=== PATIENT | female | born 1960 | race Caucasian/White ===

== ENCOUNTER 2023-01-23 13:14 | Outpatient (OUT) | payer MEDICARE, SELFPAY ==
[2023-01-23 13:33] LABS: Basophils Percent Auto 0.5 % (0.2-2.0); Eosinophils Absolute Auto 0.1 10^3/uL (0.0-0.7); Hematocrit 39.9 % (36.0-48.0); Hemoglobin 12.9 g/dL (12.0-16.0); Immature Granulocytes Abs Auto 0.01 10^3/uL (0.00-0.03); Immature Granulocytes Pct Auto 0.2 % (0.0-0.5); Lymphocytes Absolute Auto 1.9 10^3/uL (1.2-3.8); Lymphocytes Percent Auto 33.6 % (20.5-60.0); Mean Corpuscular HGB Conc 32.3 g/dL (29.9-35.2); Mean Corpuscular Volume 92.8 fL (81.0-99.0); Mean Platelet Volume 10.9 fL (9.5-13.5); Monocytes Absolute Auto 0.3 10^3/uL (0.3-0.8); Monocytes Percent Auto 5.1 % (1.7-12.0); Neutrophils Absolute Auto 3.2 10^3/uL (1.4-6.5); Neutrophils Percent Auto 58.6 % (43.0-75.0); Platelet Count 263 10^3/uL (150-450); Red Cell Distribution Width 15.7 % (11.0-15.0); White Blood Count 5.5 10^3/uL (4.0-11.0)
[2023-01-23 14:54] LABS: Alanine Aminotransferase 17 U/L (14-59); Albumin Globulin Ratio 0.9; Albumin Level 3.4 g/dL (3.4-5.0); Alkaline Phosphatase 100 U/L (46-116); Anion Gap 11.7; Aspartate Amino Transferase 53 U/L (15-37); BUN Creatinine Ratio 13.9; Bilirubin Total 0.7 mg/dL (0.2-1.0); Calcium 9.2 mg/dL (8.5-10.1); Carbon Dioxide 32.5 mmol/L (21.0-32.0); Chloride 98 mmol/L (98-107); Estimated GFR (African America >60 (>=60); Estimated GFR (Non-African Ame >60 (>=60); Glucose 80 mg/dL (74-106); Potassium 3.2 mmol/L (3.5-5.1); Sodium 139 mmol/L (136-145); Total Protein 7.4 g/dL (6.4-8.2)
[2023-01-23 16:43] LABS: TSH W/ REFLEX FT4 0.251
[2023-01-23 17:09] LABS: Free T4 1.23 ng/dL (0.76-1.46)
== END 2023-01-23 13:15 | disposition home or self-care (01) ==
LOC: LAB 13:18
DX: E03.9 Hypothyroidism, unspecified (principal); I11.0 Hypertensive heart disease with heart failure; I50.22 Chronic systolic (congestive) heart failure; Z51.81 Encounter for therapeutic drug level monitoring; R53.82 Chronic fatigue, unspecified
CPT/HCPCS: 36415; 80053; 82306; 82607; 84439; 85025

== ENCOUNTER 2023-04-25 12:22 | Outpatient (OUT) | payer MEDICARE, SELFPAY ==
--- OUTSIDE RECORDS SUMMARY | 2023-04-25 12:28 | XMS_ITS | CCD ---
Author Name Unknown Address [address] [place] [address] Organization [facility] Care Team Providers Care Marketing Rotation Associate Name Role Phone Ed Lawton Unavailable Unavailable Unavailable JeredDavide avilaew Unavailable Jered, Ed Unavailable LEIGHA White Attending Provider [phone] NO FAMILY, PHYSICIAN Primary Care Provider Unava MD Osman Jiménez Attending Provider Drew White Unavailable TRACYC, DR RICHTER Admitting Unavailable JERED, ED Primary Care Unavailable MISC, DR RICHTER Attending Unavailable MISC, DR RICHTER Consulting Unavailable JERED, ED Admitting Unavailable JERED, ED Primary Care Unavailable JERED, ED Attending Unavailable JERED, ED Consulting Unavailable CLAUDIO, DR WARD Admitting Unavailable FRANCIA, DR JANINE Zhao Consulting Unavailable JERED, ED Primary Care Unavailable CLAUDIO, DR WARD Attending Unavailable ROSETTA MANNING Consulting Unavailable CLAUDIO, DR WARD Consulting Unavailable SHAIKH CHILDRESS H Admitting Unavailable JERED, ED Primary Care Unavailable SHAIKH CHILDRESS H Attending Unavailable JERED, ED Attending Unavailable JERED, ED Consulting Unavailable JERED, ED Admitting Unavailable JERED, ED Attending Unavailable JERED, ED Consulting Unavailable JERED, ED Primary Care Unavailable JERED, ED Admitting Unavailable NO FAMILY, PHYSICIAN Primary Care Provider Unava MD Charlotte Marvinalex Attending Provider [phone] DO Ed Lawton Primary Care Provider [phone] DO Ed Lawton Attending Provider [phone] NO FAMILY, PHYSICIAN Primary Care Unavailable Ed Snyder Admitting Unavailable SnyderEd vaca Attending Unavailable Ed Lawton Nikhil Admitting Unavailable JeredEd avila Nikhil Primary Care Unavailable Jered Ed Tejeda Attending Unavailable NO FAMILY, PHYSICIAN Primary Care Unavailable Mikey Mccord Admitting Unavailab le Mikey Mccord Attending Unavailab le Allergies Allergy Classification Reported Allergen(s) Allergy Type Date of Onset Reaction(s) Facility (20 sources) Prochlorperazine; 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: [Compazine] Drug Allergy neurological sx [facility] Other (1 source) Prochlorperazine Drug Allergy 09-20-19 13 [facility] Repository (1 source) Prochlorperazine Drug Allergy 08-27-19 [facility] Repository Medications Current Medications Medication Drug Class(es) Dates Sig (Normalized) Sig (Original) [id number] 200 actuat albuterol 0.09 mg/actuat metered dose inhaler (20 sources) beta2-Adrenergic Agonist Start: 07-26-2020 take 1 puff(s) by inhalation every four hours as needed Albuterol Sulfate HFA 108 (90 Base) MCG/ACT 1 puff as needed Inhalation every 4 hrs for 30 day(s) July, Active Start: 07-26-2020 take 1 puff(s) by in halation every four hours as needed Albuterol Sulfate HFA 108 (90 Base) MCG/ACT 1 puff as needed Inhalation every 4 hrs for 30 day(s) July, Active Start: 07-26-2020 Start: 02-19-2019 Albuterol Sulf ate (2.5 MG/3ML) 0.083% Inhalation Nebulization Solution USE DIRECTED. Quantity: 0 Refills: 0 Ordered: 19-Feb-2019 DO Start : 19-Feb-2019 Active Start: 09-06-2018 End: 06-16-2021 take 2.5 mg by inhalation four times daily Albuterol Sulfate Discontinued 2.5 MG INHALATION Four times daily - Respiratory 360 September 06, 2018 12:00am June 16, 2021 4:48am Albuterol Sulfate (2.5 MG/ 3 ML) 2.5 MG/3ML 0.083% Nebulization Solution (9 sources) Albuterol Sulfat e (2.5 MG/ 3 ML) 2.5 MG/3ML 0.083% Nebulization Solution 3ml Inhalation 4 times a day Active apixaban 5 mg oral tablet (8 sources) Factor Xa Inhibitor take 1 tablet by mouth every twelve hours Eliquis 5 MG 1 tablet Orally Twice a day Active aspirin 81 mg delayed release oral tablet (20 sources) Platelet Aggregation Inhibitor, Nonsteroidal Anti-inflammatory Drug Start: 06-23-2021 take 81 mg by mouth once daily Aspirin Active 81 MG PO Daily 90 June 23, 2021 12:00am Start: 05-06-2018 End: 08-26-2019 take 81 mg by mouth once daily Aspirin Discontinued 81 MG PO Daily May 06, 2018 1:00am August 26, 2019 11:58am take 1 tablet by anca th once daily Aspirin 81 MG 1 tablet Orally Once a day Active atorvastatin 80 mg oral tablet (20 sources) HMG-CoA Reductase Inhibitor Start: 08-25-2020 take 1 tablet by mouth once daily Atorvastatin (Lipitor) 80 mg Tablet Active 80 MG PO Daily June 16, 2021 12:00am Start: 05-11-2018 End: 06-08-2019 take 40 mg by mouth once daily at bedtime Atorvastatin Discontinued 40 MG PO Daily at bedtime May 11, 2018 1:00am June 08, 2019 3:48pm Start: 05-06-2018 End: 08-31-2018 take 10 mg by mouth once daily Atorvastatin Discontinu ed 10 MG PO Daily May 06, 2018 1:00am August 31, 2018 5:45pm carvedilol 3.125 mg oral tablet (11 sources) alpha-Adrenergic Alex, beta-Adrenergic Alex Start: 06-23-2021 take 3.125 mg by mouth twice daily at mealtime Carvedilol Active 3.125 MG PO Twice daily with meals 60 June 23, 2021 12:00am empagliflozin 10 mg oral tablet (11 sources) Sodium-Glucose Cotransporter 2 Inhibitor Start: 07-07-2021 take 1 tablet by mouth every twenty-four hours Jardiance 10 MG 1 tablet Orally Once a day for 90 day(s) Jun, Active furosemide 40 mg oral tablet (20 sources) Loop Diuretic Start: 06-23-2021 take 40 mg by mouth once daily Furosemide Active 40 MG PO Daily at 0800 30 June 23, 2021 12:00am Start: 05-09-2019 take 0.5 tablet by m outh once daily Furosemide 20 MG 1/2 tablet Orally daily for 90 days Apr, Active Start: 05-09-2019 take 1 tablet by anca th every twenty-four hours Furosemide 20 MG 1 tablet Orally daily for 90 days Apr, Active Start: 05-09-2019 End: 06-16-2021 take 40 mg by mouth once daily Furosemide Discontinued 40 MG PO Daily August 26, 2019 12:01pm June 16, 2021 4:48am levothyroxine sodium 0.088 mg oral tablet (20 sources) l-Thyroxine Start: 09-06-2018 take 1 tablet by mouth once daily Levothyroxine (Synthroid) 88 mcg Tablet Active 88 MCG PO DAILY@0630 30 September 06, 2018 12:00am Start: 05-06-2018 End: 09-06-2018 take 100 ug by mouth once daily Levothyroxine Discontinued 100 MCG PO Daily May 06, 2018 1:00am September 06, 2018 2:12pm Levothyroxine So dium 88 MCG TAKE 1 TABLET BY MOUTH EVERY DAY FOR 90 DAYS for 90 Active magnesium oxide 400 mg oral tablet (14 sources) Start: 06-23-2021 take 400 mg by mouth twice daily Magnesium Oxide Active 400 MG PO Twice daily 60 June 23, 2021 12:00am Magnesium Oxide Active nitrofurantoin, macrocrystals 25 mg / nitrofurantoin, monohydrate 75 mg oral capsule (2 sources) Nitrofuran Antibacterial Start: 03-15-2022 take 1 capsule by mouth every twelve hours Macrobid 100 MG 1 capsule with food Orally every 12 hrs for 7 day(s) Feb, Active ondansetron 8 mg oral tablet (1 source) Serotonin-3 Receptor Antagonist take 1 tablet by mouth every twenty-four hours Ondansetron HCl 8 MG 1 tablet as needed Orally Once a day for 30 days Active pantoprazole 40 mg delayed release oral tablet (20 sources) Proton Pump Inhibitor Start: 02-19-2019 take 40 mg by mouth once daily Pantoprazole Active 40 MG PO Daily June 03, 2019 12:00am sacubitril 24 mg / valsartan 26 mg oral tablet (20 sources) Angiotensin 2 Receptor Alex Start: 06-23-2021 take 2 tablets by mouth twice daily Sacubitril-Valsar andrew (Entresto) 24-26 mg Tablet Active 2 TAB PO Twice daily 120 30 June 23, 2021 12:00am ENTRESTO 24 mg/2 6 mg 1 orally twice a day Active Completed/Discontinued Medications Medication Drug Class(es) Dates Sig (Normalized) Sig (Original) alendronic acid 70 mg oral tablet (5 sources) Bisphosphonate Start: 05-06-2018 End: 06-03-2019 take 70 mg by mouth every week Alendronate Discontinued 70 MG PO every week May 06, 2018 1:00am June 03, 2019 12:57pm ALPRAZolam 1 mg oral tablet (20 sources) Benzodiazepine Start: 09-01-2018 End: 06-08-2019 take 1 mg by mouth three times daily Alprazolam Discontinued 1 MG PO Three times daily 0 September 06, 2018 2:09pm June 03, 2019 4:18pm take 1 tablet by anca th every twelve hours ALPRAZolam 1 MG 1 tablet Orally Twice a day Active take 1 tablet by anca th three times daily as needed ALPRAZolam ER 1 MG Oral Tablet Extended Release 24 Hour 1 tablet three times daily as needed Quantity: 0 Refills: 0 Ordered: 28-Apr-2021 DO Active amiodarone hydrochloride 200 mg oral tablet (14 sources) Antiarrhythmic Start: 07-14-2021 take 1 tablet by mouth once daily Amiodarone HCl - 200 MG Oral Tablet TAKE 1 TABLET DAILY. Quantity: 90 Refills: 1 Ordered: 14-Jul-2021 Marty Lynn MD Start : 14-Jul-2021 Active new start Start: 06-01-2019 End: 06-08-2019 take 200 mg by mouth once daily Amiodarone Discontinued 200 MG PO Daily June 01, 2019 12:00am June 08, 2019 3:48pm atenolol 25 mg oral tablet (2 sources) beta-Adrenergic Alex Start: 05-06-2018 End: 05-11-2018 take 25 mg by mouth once daily Atenolol Discontinued 25 MG PO Daily May 06, 2018 1:00am May 11, 2018 10:02am azithromycin 250 mg oral tablet (2 sources) Macrolide Antimicrobial Start: 09-06-2018 End: 06-01-2019 take 250 mg by mouth every twenty-four hours Azithromycin Discontinued 250 MG PO Q24H 3 3 September 06, 2018 12:00am June 01, 2019 4:04pm busPIRone hydrochloride 15 mg oral tablet (12 sources) Start: 06-01-2019 End: 06-23-2021 take 30 mg by mouth twice daily Buspirone Discontinued 30 MG PO Twice daily June 01, 2019 4:03pm June 23, 2021 2:17pm Start: 05-20-2018 End: 06-01-2019 take 15 mg by mouth twice daily Buspirone Discontinued 15 MG PO Twice daily 60 September 06, 2018 12:00am June 01, 2019 4:04pm clopidogrel 75 mg oral tablet (12 sources) P2Y12 Platelet Inhibitor Start: 09-06-2018 End: 06-16-2021 take 75 mg by mouth once daily Clopidogrel Discontinued 75 MG PO Daily September 06, 2018 12:00am June 16, 2021 5:08am 24 hr dilTIAZem hydrochloride 180 mg extended release oral capsule (5 sources) Calcium Channel Alex Start: 02-19-2019 take 1 capsule by mouth once daily in the morning dilTIAZem HCl ER Beads 180 MG Oral Capsule Extended Release 24 Hour TAKE 1 CAPSULE DAILY IN THE MORNING. Quantity: 0 Refills: 0 Ordered: 19-Feb-2019 DO Start : 19-Feb-2019 Active Start: 05-10-2018 End: 06-01-2019 take 120 mg by mouth once daily Diltiazem Hcl Discontinued 120 MG PO Daily May 10, 2018 1:00am June 01, 2019 4:04pm ergocalciferol 1.25 mg oral capsule (6 sources) Provitamin D2 Compound Start: 02-19-2019 take 1 capsule by mouth every week Ergocalciferol 1.25 MG (60619 UT) Oral Capsule TAKE 1 CAPSULE WEEKLY. Quantity: 0 Refills: 0 Ordered: 19-Feb-2019 DO Start : 19-Feb-2019 Active ferrous sulfate 325 mg oral tablet (2 sources) Start: 06-03-2019 End: 06-16-2021 take 325 mg by mouth once daily Ferrous Sulfate Discontinued 325 MG PO Daily June 03, 2019 12:00am June 16, 2021 5:08am folic acid 1 mg oral tablet (9 sources) Start: 05-06-2018 End: 06-01-2019 take 1 mg by mouth once daily Folic Acid Discontinued 1 MG PO Daily May 06, 2018 1:00am June 01, 2019 4:04pm hydrOXYzine pamoate 50 mg oral capsule (2 sources) Antihistamine Start: 05-11-2018 End: 06-01-2019 take 50 mg by mouth three times daily Hydroxyzine Pamoate Discontinued 50 MG PO Three times daily May 11, 2018 1:00am June 01, 2019 4:04pm lamoTRIgine 150 mg oral tablet (13 sources) Mood Stabilizer, Anti-epileptic Agent Start: 06-16-2021 End: 06-23-2021 take 1 tablet by mouth once daily Lamotrigine (Lamictal) 150 mg Tablet Discontinued 150 MG PO Daily June 16, 2021 12:00am June 23, 2021 2:17pm Start: 06-08-2019 End: 08-26-2019 take 25 mg by mouth once daily at bedtime Lamotrigine Discontinued 25 MG PO Daily at bedtime June 08, 2019 12:00am August 26, 2019 12:01pm Start: 06-03-2019 End: 06-03-2019 take 150 mg by mouth once daily in the morning Lamotrigine Discontinued 150 MG PO Every morning June 03, 2019 12:00am June 03, 2019 4:21pm Start: 06-03-2019 End: 06-03-2019 take 75 mg by mouth once daily at bedtime Lamotrigine Discontinued 75 MG PO Daily at bedtime June 03, 2019 12:00am June 03, 2019 4:32pm take 1 tablet by anca th once daily LaMICtal XR 50 MG Oral Tablet Extended Release 24 Hour Take 1 tablet daily Quantity: 0 Refills: 0 Ordered: 28-Apr-2021 DO Active lisinopril 5 mg oral tablet (16 sources) Angiotensin Converting Enzyme Inhibitor Start: 04-28-2021 take 1 tablet by mouth once daily Lisinopril 5 MG Oral Tablet TAKE 1 TABLET DAILY. Quantity: 90 Refills: 3 Ordered: 28-Apr-2021 Marty Lynn MD Start : 28-Apr-2021 Active dose increased Start: 03-17-2021 take 1 tablet by anca th once daily Lisinopril 2.5 MG Oral Tablet TAKE 1 TABLET BY MOUTH EVERY DAY Quantity: 90 Refills: 3 Ordered: 17-Mar-2021 Marty Lynn MD Start : 17-Mar-2021 Active Start: 08-26-2019 take 5 mg by mouth once daily Lisinopril Active 5 MG PO Daily August 26, 2019 12:00am Start: 02-19-2019 take 1 tablet by anca th once daily Lisinopril 5 MG Oral Tablet TAKE 1 TABLET DAILY. Quantity: 90 Refills: 0 Ordered: 19-Feb-2019 DO Start : 19-Feb-2019 Active Start: 05-06-2018 End: 08-26-2019 take 5 mg by mouth once daily Lisinopril Discontinued 5 MG PO Daily May 06, 2018 1:00am August 26, 2019 11:59am take 0.5 tablet by m out once daily Lisinopril 5 MG 1/2 tablet Orally Once a day for 30 days Active LORazepam 0.5 mg oral tablet (3 sources) Benzodiazepine Start: 02-19-2019 take 1 tablet by mouth three times daily as needed LORazepam 0.5 MG Oral Tablet TAKE 1 TABLET 3 TIMES DAILY NEEDED. Quantity: 0 Refills: 0 Ordered: 19-Feb-2019 DO Start : 19-Feb-2019 Active methotrexate 2.5 mg oral tablet (9 sources) Folate Analog Metabolic Inhibitor Start: 02-19-2019 take 8 tablets by mouth every week Methotrexate Sodium 2.5 MG Oral Tablet TAKE 8 TABLETS PER WEEK. Quantity: 0 Refills: 0 Ordered: 19-Feb-2019 DO Start : 19-Feb-2019 Active Start: 05-06-2018 End: 06-03-2019 Methotrexate Discontinued 0 .ROUTE .COMPLEX May 06, 2018 1:00am June 03, 2019 1:00pm 8 2.5 MG TAB ONCE WEEKLY on sunday Methotrexate Sod ium Active metoprolol tartrate 25 mg oral tablet (10 sources) beta-Adrenergic Alex Start: 06-08-2019 End: 08-26-2019 take 25 mg by mouth twice daily Metoprolol Tartrate Discontinued 25 MG PO Twice daily 60 30 June 08, 2019 12:00am August 26, 2019 12:00pm take 0.5 tablet by mouth once da graeme Metoprolol Succinate ER 25 MG 1/2 tablet Orally Once a day Active take 1 tablet by anca th every twenty-four hours Metoprolol Succinate ER 25 MG 1 tablet Orally Once a day Active Nebulizer Accessories (2 sources) Start: 09-06-2018 End: 06-16-2021 Nebulizer Accessories Discon tinued 0 .ROUTE .MEDSUPPLY September 06, 2018 12:00am June 16, 2021 4:49am As directed Start: 09-06-2018 End: 06-16-2021 Nebulizer Accessories Discon tinued 0 .ROUTE .MEDSUPPLY September 05, 2018 11:00pm June 16, 2021 3:49am As directed nitroglycerin 0.4 mg sublingual tablet (19 sources) Nitrate Vasodilator Start: 02-19-2019 End: 06-16-2021 Nitroglycerin Discontinued 0.4 MG SUBLINGUAL every 5 to 15 minutes August 26, 2019 12:00am June 16, 2021 5:09am Start: 05-10-2018 End: 09-07-2018 Nitroglycerin Discontinued 0 .4 MG SUBLINGUAL every 5 to 15 minutes May 10, 2018 1:00am September 07, 2018 12:02am until response; do not exceed 3 doses per episode omeprazole 40 mg oral tablet (4 sources) Proton Pump Inhibitor Start: 05-11-2018 End: 06-01-2019 take 40 mg by mouth once daily at bedtime Omeprazole Discontinued 40 MG PO Daily at bedtime May 11, 2018 1:00am June 01, 2019 4:04pm Start: 05-06-2018 End: 05-11-2018 take 40 mg by mouth twice daily Omeprazole Discontinued 40 MG PO Twice daily May 06, 2018 1:00am May 11, 2018 10:04am potassium chloride 20 meq extended release oral tablet (20 sources) Start: 06-23-2021 take 2 tablets by mouth once daily Potassium Chloride Millie ER 20 MEQ Oral Tablet Extended Release TAKE 2 TABLET Daily Quantity: 0 Refills: 0 Ordered: 23-Jun-2021 DO Start : 23-Jun-2021 Active Start: 06-23-2021 Potassium Chlo ride (Klor-Con M20) 20 mEq Tablet,Er Particles/Crystals Active 40 MEQ PO Daily 60 June 23, 2021 12:00am Start: 06-01-2021 take 1 tablet by anca th three times daily Potassium Chloride ER 10 MEQ Oral Tablet Extended Release Take 1 tablet by mouth three times a day Quantity: 270 Refills: 3 Ordered: 01-Jun-2021 Marty Lynn MD Start : 01-Jun-2021 Active Start: 08-26-2019 End: 06-16-2021 Potassium Chloride (Klor-Con M20) 20 mEq tablet,ER particles/crystals Discontinued 20 MEQ PO Daily August 26, 2019 12:01pm June 16, 2021 5:08am Start: 06-12-2019 take 1 tablet by anca th every twenty-four hours Potassium Chloride ER 10 MEQ 1 tablet with food Orally Once a day for 30 days May, Active Start: 06-12-2019 take 1 tablet by anca th every eight hours Potassium Chloride ER 10 MEQ 1 tablet with food Orally tid for 30 day(s) May, Active Start: 06-08-2019 End: 08-26-2019 Potassium Chloride (Klor-Con M20) 20 mEq Tablet,Er Particles/Crystals Discontinued 40 MEQ PO Daily 60 June 08, 2019 12:00am August 26, 2019 12:01pm predniSONE 5 mg oral tablet (7 sources) Start: 02-19-2019 take 0.5 tablet by mouth once daily predniSONE 5 MG Oral Tablet TAKE 0.5 TABLET Daily Quantity: 0 Refills: 0 Ordered: 19-Feb-2019 DO Start : 19-Feb-2019 Active Start: 05-06-2018 End: 06-16-2021 take 2.5 mg by mouth once daily Prednisone Discontinue d 2.5 MG PO Daily May 06, 2018 1:00am June 16, 2021 4:41am take 1 tablet by anca th every twenty-four hours prednisone 10 MG 1 Tablet Orally Once a day Active rOPINIRole 0.5 mg oral tablet (4 sources) Nonergot Dopamine Agonist Start: 09-06-2018 End: 06-01-2019 take 0.5 mg by mouth once daily at bedtime Ropinirole Discontinued 0.5 MG PO Daily at bedtime September 06, 2018 12:00am June 01, 2019 4:04pm Start: 05-06-2018 End: 08-31-2018 take 0.5 mg by mouth once daily at bedtime Ropinirole Discontinued 0.5 MG PO Daily at bedtime May 06, 2018 1:00am August 31, 2018 12:20pm sertraline 100 mg oral tablet (5 sources) Serotonin Reuptake Inhibitor Start: 06-16-2021 End: 06-23-2021 take 1 tablet by mouth once daily Sertraline (Zoloft) 100 mg Tablet Discontinued 100 MG PO Daily June 16, 2021 12:00am June 23, 2021 2:17pm Zoloft 50 MG Ora l Tablet TAKE 1 AND 1/2 TABLETS DAILY. Quantity: 0 Refills: 0 Ordered: 28-Apr-2021 DO Active sotalol hydrochloride 120 mg oral tablet (7 sources) Antiarrhythmic Start: 04-29-2021 take 0.5 tablet by mouth twice daily Sotalol HCl - 120 MG Oral Tablet TAKE 1/2 TABLET TWICE A DAY Quantity: 90 Refills: 3 Ordered: 29-Apr-2021 Marty Lynn MD Start : 29-Apr-2021 Active Start: 06-08-2019 End: 06-23-2021 Sotalol (Sotalol Af) 120 mg Tablet Discontinued 60 MG PO Twice daily June 08, 2019 12:00am June 23, 2021 2:17pm take 0.5 tablet by m outh every twelve hours Sotalol HCl 120 MG 1/2 tablet Orally every 12 hrs Active spironolactone 25 mg oral tablet (17 sources) Aldosterone Antagonist Start: 06-23-2021 take 0.5 tablet by mouth once daily Spironolactone 25 MG Oral Tablet TAKE 1/2 TABLET BY MOUTH EVERYDAY Quantity: 45 Refills: 3 Ordered: 22-Aug-2021 Marty Lynn MD Start : 23-Jun-2021 Active Start: 06-23-2021 take 12.5 mg by mout h once daily Spironolactone Active 12.5 MG PO Daily June 23, 2021 12:00am ticagrelor 90 mg oral tablet (2 sources) Start: 05-10-2018 End: 08-31-2018 take 1 tablet by mouth twice daily Ticagrelor (Brilinta) 90 mg Tablet Discontinued 90 MG PO Twice daily 180 90 May 10, 2018 1:00am August 31, 2018 11:44am tiZANidine 2 mg oral capsule (2 sources) Central alpha-2 Adrenergic Agonist take 1 capsule by mouth every twenty-four hours Zanaflex 2 MG 1 capsule as needed Orally once a day Not-Taking warfarin sodium 5 mg oral tablet (20 sources) Vitamin K Antagonist Start: 02-19-2019 take 1 tablet by mouth once daily Warfarin Sodium 5 MG Oral Tablet TAKE 1 TABLET DAILY DIRECTED by [facility] Quantity: 0 Refills: 0 Ordered: 19-Feb-2019 DO Start : 19-Feb-2019 Active Start: 08-31-2018 Warfarin (Coum rei) 2 mg tablet Active 1 MG PO As Directed August 31, 2018 12:00am as directed by [facility] Start: 05-10-2018 End: 08-31-2018 take 1 tablet by mouth once daily Warfarin (Coumadin) 5 mg Tablet Discontinued 5 MG PO Daily at 1700 30 30 May 10, 2018 1:00am August 31, 2018 5:48pm Problems Active Problems Problem Classification Problem Date Documented Da te Episodic/Chronic Abdominal pain (20 sources) Left sided abdominal pain; 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: [Unspecified abdominal pain] Onset: 3 05-07-2018 Episodic Acute and unspecified renal failure (2 sources) Injury of kidney; 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: [Acute kidney failure, unspecified] 06-20-2021 Episodic Anxiety disorders (16 sources) Anxiety; 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: [Anxiety disorder, unspecified] 05-06-2018 Chronic Cardiac dysrhythmias (20 sources) Paroxysmal atrial fibrillation; 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: [Atrial fibrillation] Onset: 1 Resolved: 2 Chronic Comment on above: Status post radiofre quency ablation at ; Chronic obstructive pulmonary disease and bronchiectasis (14 sources) Chronic obstructive lung disease; 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: [Chronic obstructive pulmonary disease, unspecified] Chronic Complications of surgical procedures or medical care (1 source) Hypotension due to drugs Episodic Congestive heart failure; nonhypertensive (20 sources) Acute on chronic systolic heart failure; 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: [Acute on chronic systolic (congestive) heart failure] Onset: 2 Resolved: 2 Chronic Coronary atherosclerosis and other heart disease (20 sources) Coronary atherosclerosis; 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: [Coronary atherosclerosis of [place] coronary artery] 05-10-2018 Chronic Coronary atherosclerosis and other heart disease (12 sources) Patient post percutaneous transluminal coronary angioplasty; 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: [Percutaneous transluminal coronary angioplasty status] Episodic Comment on above: LAD 2019; Deficiency and other anemia (13 sources) Iron deficiency anemia; 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: [Iron deficiency anemia, unspecified] Episodic Disorders of lipid metabolism (14 sources) Dyslipidemia; 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: [Other and unspecified hyperlipidemia] 08-31-2018 Chronic Esophageal disorders (16 sources) Gastroesophageal reflux disease; 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: [Gastro-esophageal reflux disease without esophagitis] Onset: 3 Chronic Essential hypertension (20 sources) Benign essential hypertension; 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: [Benign essential hypertension] Onset: 1 Resolved: 2 Chronic Fluid and electrolyte disorders (6 sources) Metabolic acidosis; 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: [Metabolic acidosis] 09-01-2018 Episodic Genitourinary symptoms and ill-defined conditions (2 sources) Dysuria Episodic Hypertension with complications and secondary hypertension (1 source) Hypertensive heart disease with heart failure; 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: [HTN HEART DISEASE W/HEART FAIL] Onset: 3 Chronic Malaise and fatigue (3 sources) Fatigue; 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: [Chronic fatigue, unspecified] Chronic Malaise and fatigue (2 sources) Asthenia; 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: [Weakness] 06-03-2019 Episodic Mood disorders (14 sources) Bipolar II disorder; 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: [Bipolar II disorder] Onset: 1 Resolved: 1 Chronic Nausea and vomiting (12 sources) Nausea; 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: [Nausea] Episodic Osteoarthritis (1 source) Unspecified osteoarthritis, unspecified site; 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: [UNSPECIFIED OSTEOARTHRITIS UNS SITE] Onset: 3 Chronic Osteoporosis (13 sources) Adult idiopathic generalized osteoporosis; 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: [Other osteoporosis without current pathological fracture] Chronic Other aftercare (17 sources) Drug therapy finding; 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: [Long-term (current) use of other medications] Episodic Other aftercare (9 sources) Encounter for therapeutic drug level monitoring; 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: [ENC THERAPEUTC DRUG LEVL MONITORING] Onset: 1 Resolved: 1 Episodic Other aftercare (2 sources) Polypharmacy ; 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: [Other terminal worker (current) drug therapy] 09-01-2018 Episodic Other aftercare (1 source) Other terminal worker (current) drug therapy; 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: [OTH SENIOR LIVING CURRENT DRUG THERAPY] Onset: 3 Episodic Other and ill-defined heart disease (7 sources) Systolic dysfunction; 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: [Heart disease, unspecified] Chronic Other and ill-defined heart disease (2 sources) Left ventricular systolic dysfunction; 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: [Heart disease, unspecified] 06-18-2021 Chronic Other circulatory disease (2 sources) Low blood pressure; 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: [Hypotension, unspecified] 06-20-2021 Episodic Other connective tissue disease (2 sources) Rhabdomyolysis; 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: [Rhabdomyolysis] 09-01-2018 Episodic Other gastrointestinal disorders (13 sources) Pharyngeal dysphagia; 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: [Dysphagia, pharyngeal phase] Episodic Other hematologic conditions (4 sources) Raised cardiac enzyme or marker; 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: [Other specified abnormalities of plasma proteins] 08-31-2018 Episodic Other liver diseases (2 sources) Enzyme level - finding; 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: [Elevated transaminase measurement] 06-03-2019 Episodic Other liver diseases (2 sources) Cardiac enzymes abnormal; 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: [Abnormal levels of other serum enzymes] 09-02-2018 Episodic Other lower respiratory disease (2 sources) Hypoxia; 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: [Hypoxemia] 06-16-2021 Episodic Other nutritional; endocrine; and metabolic disorders (12 sources) Obesity; 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: [Obesity, unspecified] Chronic Other nutritional; endocrine; and metabolic disorders (13 sources) Obese class II; 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: [Body mass index (BMI) 38.0-38.9, adult] Chronic Other nutritional; endocrine; and metabolic disorders (1 source) Body mass index (BMI) 38.0-38.9, adult Chronic Other screening for suspected conditions (not mental disorders or infectious disease) (20 sources) Prolonged QT interval; 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: [Nonspecific abnormal electrocardiogram [ECG] [EKG]] Onset: 1 Resolved: 1 Episodic Pneumonia (except that caused by tuberculosis or sexually transmitted disease) (4 sources) Community acquired pneumonia; 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: [Pneumonia, unspecified organism] 08-31-2018 Episodic Residual codes; unclassified (4 sources) Tobacco user; 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: [Tobacco use] 06-18-2021 Episodic Residual codes; unclassified (2 sources) Acute confusion; 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: [Disorientation, unspecified] 09-04-2018 Episodic Rheumatoid arthritis and related disease (20 sources) Rheumatoid arthritis - hand joint; 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: [Rheumatoid arthritis, unspecified] Onset: 2 Chronic Screening and history of mental health and substance abuse codes (7 sources) Ex-smoker; 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: [Personal history of tobacco use] Episodic Septicemia (except in labor) (2 sources) Sepsis; 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: [Sepsis, unspecified organism] 09-02-2018 Episodic Substance-related disorders (19 sources) Smoker; 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: [Tobacco use disorder] Onset: 1 Resolved: 1 Chronic Thyroid disorders (20 sources) Acquired hypothyroidism; 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: [Hypothyroidism, unspecified] Onset: 1 Resolved: 2 Chronic Unclassified (1 source) Encounter for screening mammogram for malignant neoplasm of breast; 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: [Encounter for screening mammogram for malignant neoplasm of breast] Onset: 3 Past or Other Problems Problem Classification Problem Date Documented Da te Episodic/Chronic Other aftercare (1 source) 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; 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: [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 ANTICOAGULANTS] Onset: 10-17-2021 Episodic Results Test Name Value Interpretation Reference Range Facility MM screening mammo BI w/CADo n 10-09-2022 MM screening mammo BI w/CAD [facility] [place] [address] Mammography Report Signed Patient: Arian Lane MR#: [id number] 9 : 1960 Acct:[id number] Age/Sex: 62 / F ADM Date: 10/06/22 Loc: [place] Room: Type: [facility] Attending Dr: Ed Lawton DO Copies to: Ed Lawton DO Ordering Provider: Ed Lawton DO Date of Service: 10/06/22 MM/MM screening mammo BI w/CAD: Encounter for screening mammogram for malignant neoplasm of CLINICAL DATA: Screening for malignancy. SCREENING MAMMOGRAM - FULL FIELD DIGITAL WITH TOMOSYNTHESIS AND CAD COMPARISON:Mammograms dating back to 2004 Tomosynthesis craniocaudal and mediolateral oblique views of both breasts were obtained using low- dose digital technique. This examination was reviewed with the aid of CAD. The breast tissue is composed of scattered fibroglandular densities. There are no dominant masses, typically malignant calcifications or architectural distortion. There has been no significant interval change. MM/MM screening mammo BI w/CAD IMPRESSION: NO MAMMOGRAPHIC EVIDENCE OF MALIGNANCY. ROUTINE FOLLOW-UP IS RECOMMENDED IN ONE YEAR. RESULT CODE: 1 Negative DENSITY CODE: 2 (approximately 25-50% glandular) FOLLOW UP: 1YR The false-negative rate of mammography is approximately 10-percent. Management of a palpable abnormality must be based on clinical grounds. Patient was entered into a reminder system with a target due date for the next mammogram. Impression dictated by: Gary Welch Jr., D.ONiraj10/09/2022 9:36 AM Dictation Location: [facility] Transcribed By: [facility] 10/09/22935 Dictated By: Gary Welch Jr, DO 10/09/22934 Signed By: 10/09/22935 [facility] PROF CHEM 8 (BAS METB)on Anion gap [Moles/Vol] 14.7 mmol/L Normal [facility] Comment on above: Performed By: #### L IPID, [id number] #### [facility] [address] [address] [address] Meaghan Gannon Calcium [Mass/Vol] 9.3 mg/dL Normal 8.5-10.1 [facility] Comment on above: Performed By: #### L IPID, [id number] #### [facility] [address] [address] [address] Meaghan Gannon Chloride [Moles/Vol] 99 mmol/L Normal 98-107 [facility] Comment on above: Performed By: #### L IPID, [id number] #### [facility] [address] [address] [address] Meaghan Gannon CO2 [Moles/Vol] 29.3 mmol/L Normal 21.0-32.0 [facility] Comment on above: Performed By: #### L IPID, [id number] #### [facility] [address] [address] [address] Meaghan Gannon Creatinine [Mass/Vol] 0.85 mg/dL Normal 0.55-1.02 [facility] Comment on above: Performed By: #### L IPID, [id number] #### [facility] [address] [place] [address] Dr. Meaghna Gannon EGFR-AF YEMENI >60 Normal >=60 [facility] Comment on above: Performed By: #### L IPID, [id number] #### [facility] [address] [address] [address] Meaghan Gannon EGFR-NON AF YEMENI >60 Normal >=60 [facility] Comment on above: Performed By: #### L IPID, [id number] #### [facility] [address] [place] [address] Dr. Meaghan Gannon Glucose [Mass/Vol] 89 mg/dL Normal 74-106 [facility] Comment on above: Performed By: #### L IPID, [id number] #### [facility] [address] [place] [address] Dr. Meaghan Gannon Potassium [Moles/Vol] 4.0 mmol/L Normal 3.5-5.1 [facility] Comment on above: Performed By: #### L IPID, [id number] #### [facility] [address] [place] [address] Dr. Meaghan Gannon Sodium [Moles/Vol] 139 mmol/L Normal 136-[address] [facility] Comment on above: Performed By: #### L IPID, [id number] #### [facility] [address] [place] [address] Dr. Meaghan Gannon Urea nitrogen [Mass/Vol] 9.0 mg/dL Normal 7.0-18.0 [facility] Comment on above: Performed By: #### L IPID, [id number] #### [facility] [address] [place] [address] Dr. Meaghan Gannon Urea nitrogen/Creatinine [Mass ratio] 10.6 mg/mg Normal [facility] Comment on above: Performed By: #### L IPID, [id number] #### [facility] [address] [place] [address] Dr. Meaghan Gannon XR HAND HAI MIN 3Von 023 XR HAND HAI MIN 3V EXAMINATION: XR HAND HAI MIN 3V, XR WRIST HAI MIN 3 V HISTORY: Pain of bilateral hands COMPARISON: No relevant comparison available. FINDINGS: RIGHT FINDINGS: BONES: No significant arthropathy or acute abnormality. SOFT TISSUES: No visible soft tissue swelling. OTHER: Negative. LEFT FINDINGS: BONES: Small cortical erosion along the medial head of first metacarpal and medial base of fifth metacarpal. Partial subluxation of the first carpal-metacarpal joint bilaterally. No fracture, dislocation, bone lesion. SOFT TISSUES: No visible soft tissue swelling. OTHER: Negative. IMPRESSION: RIGHT CONCLUSION: No significant findings to suggest rheumatoid arthritis. Laxity/mild subluxation of the first metacarpophalangeal joint. Relative arthritic/degenerative sparing of the remaining joints. LEFT CONCLUSION: Small erosion involving the first and fifth metacarpals which can be seen with rheumatoid arthritis. Relative arthritic/degenerative sparing of the joints. Electronically authenticated by: JANINE FELDMAN Date: 2022-06-27 08:38 Normal [facility] CBC AUTO DIFFon 06-26-2022 BASO # 0.0 103/ul Normal 0.0-0.1 [facility] Comment on above: Performed By: #### C BC #### [facility] [address] [place] [address] Dr. Meaghan Gannon Basophils/100 WBC (Bld) 0.3 % Normal 0.2-2.0 [facility] Comment on above: Performed By: #### C BC #### [facility] [address] [place] [address] Dr. Meaghan Gannon EO # 0.2 103/ul Normal 0.0-0.7 [facility] Comment on above: Performed By: #### C BC #### [facility] [address] [place] [address] Dr. Meaghan Gannon Eosinophils/100 WBC (Bld) 2.0 % Normal 0.9-7.0 [facility] Comment on above: Performed By: #### C BC #### [facility] [address] [place] [address] Dr. Meaghan Gannon Erythrocyte distribution width (RBC) [Ratio] 15.9 % Critically high 11.0-15.0 [facility] Comment on above: Performed By: #### C BC #### [facility] [address] [place] [address] Dr. Meaghan Gannon Hematocrit (Bld) [Volume fraction] 44.3 % Normal 36.0-48.0 [facility] Comment on above: Performed By: #### C BC #### [facility] [address] [place] [address] Dr. Meaghan Gannon Hemoglobin (Bld) [Mass/Vol] 14.3 g/dL Normal 12.0-16.0 [facility] Comment on above: Performed By: #### C BC #### [facility] [address] [place] [address] Dr. Meaghan Gannon IG # 0.03 10e3/ul Normal 0.00-0.03 [facility] Comment on above: Performed By: #### C BC #### [facility] [address] [place] [address] Dr. Meaghan Gannon IG % 0.3 % Normal 0.0-0.5 [facility] Comment on above: Performed By: #### C BC #### [facility] [address] [place] [address] Dr. Meaghan Gannon LYMPH # 2.4 103/ul Normal 1.2-3.8 [facility] Comment on above: Performed By: #### C BC #### [facility] [address] [place] [address] Dr. Meaghan Gannon Lymphocytes/100 WBC (Bld) 24.2 % Normal 20.5-60.0 [facility] Comment on above: Performed By: #### C BC #### [facility] [address] [place] [address] Dr. Meaghan Gannon MANUAL DIFF REQ NO Normal [facility] Comment on above: Performed By: #### C BC #### [facility] [address] [place] [address] Dr. Meaghan Gannon MCH (RBC) [Entitic mass] 29.1 pg Normal 26.7-34.0 [facility] Comment on above: Performed By: #### C BC #### [facility] [address] [address] [address] Meaghan Gannon MCHC (RBC) [Mass/Vol] 32.3 g/dL Normal 29.9-35.2 [facility] Comment on above: Performed By: #### C BC #### [facility] [address] [place] [address] Dr. Meaghan Gannon MCV (RBC) [Entitic vol] 90.2 fL Normal 81.0-99.0 [facility] Comment on above: Performed By: #### C BC #### [facility] [address] [place] [address] Dr. Meaghan Gannon MONO # 0.9 103/ul Critically high 0.3-0.8 [facility] Comment on above: Performed By: #### C BC #### [facility] [address] [place] [address] Dr. Meaghan Gannon Monocytes/100 WBC (Bld) 9.1 % Normal 1.7-12.0 [facility] Comment on above: Performed By: #### C BC #### [facility] [address] [place] [address] Dr. Meaghan Gannon NEUT # 6.2 103/ul Normal 1.4-6.5 [facility] Comment on above: Performed By: #### C BC #### [facility] [address] [place] [address] Dr. Meaghan Gannon Neutrophils/100 WBC (Bld) 64.1 % Normal 43.0-75.0 [facility] Comment on above: Performed By: #### C BC #### [facility] [address] [place] [address] Dr. Meaghan Gannon Platelet mean volume (Bld) [Entitic vol] 10.5 fL Normal 9.5-13.5 [facility] Comment on above: Performed By: #### C BC #### [facility] [address] [place] [address] Dr. Meaghan Gannon PLT 341 103/ul Normal 150-450 [facility] Comment on above: Performed By: #### C BC #### [facility] [address] [address] [address] Meaghan Gannon RBC 4.91 106/ul Normal 4.20-5.40 [facility] Comment on above: Performed By: #### C BC #### [facility] [address] [place] [address] Dr. Meaghan Gannon WBC 9.7 103/ul Normal 4.0-11.0 [facility] Comment on above: Performed By: #### C BC #### [facility] [address] [address] [address] Meaghan Gannon CRPon 06-26-2022 CRP [Mass/Vol] mg/L Normal <=1.0 [facility] Comment on above: Performed By: #### L ANGELAID [id number] #### [facility] [address] [place] [address] Dr. Meaghan Gannon LIPID PROFILEon 06-26-2022 CHOL-HDL RATIO NORM SEE BELOW Normal [facility] Comment on above: Result Comment: 3.3 - 4.4 LOW RISK 4.4 - 7.1 AVERAGE RISK 7.1 - 11.0 MODERATE RISK >11.0 HIGH RISK Performed By: #### L IPID, [id number] #### [facility] [address] [place] [address] Dr. Meaghan Gannon Cholesterol [Mass/Vol] 146 mg/dL Normal <=200 [facility] Comment on above: Performed By: #### L IPID, [id number] #### [facility] [address] [place] [address] Dr. Meaghan Gannon Cholesterol in HDL [Mass/Vol] 43 mg/dL Normal 40-60 [facility] Comment on above: Performed By: #### L IPID, [id number] #### [facility] [address] [place] [address] Dr. Meaghan Gannon Cholesterol in LDL [Mass/Vol] 76.2 mg/dL Normal [facility] Comment on above: Performed By: #### L IPID, [id number] #### [facility] [address] [address] [address] Meaghan Gannon Cholesterol.total/Chol esterol in HDL [Mass ratio] 3.4 {ratio} Normal [facility] Comment on above: Performed By: #### L IPID, [id number] #### [facility] [address] [address] [address] Meaghan Gannon HDL NORMAL > or = 60 mg/dl - LO W CARDIOVASCULAR RISK <40 mg/dl - HIGH CARDIOVASCULAR RISK Normal [facility] Comment on above: Performed By: #### L IPID [id number] #### [facility] [address] [address] [address] Meaghan Gannon LDL CALC NORMAL SEE BELOW Normal [facility] Comment on above: Result Comment: <100 mg/dl OPTIMAL 100 - 129 mg/dl NEAR OR ABOVE OPTIMAL 130 - 159 mg/dl BORDERLINE HIGH 160 - 189 mg/dl HIGH >190 mg/dl VERY HIGH Performed By: #### L IPID, [id number] #### [facility] [address] [address] [address] Meaghan Gannon Triglyceride [Mass/Vol] 134 mg/dL Normal <=150 [facility] Comment on above: Performed By: #### L IPID, [id number] #### [facility] [address] [place] [address] Dr. Meaghan Gannon VLDL CALC 26.8 mg/dL Normal [facility] Comment on above: Performed By: #### L IPID, [id number] #### [facility] [address] [address] [address] Meaghan Gannon PROF 14(COMP METB)on 023 Albumin [Mass/Vol] 3.6 g/dL Normal 3.4-5.0 [facility] Comment on above: Performed By: #### L IPID, [id number] #### [facility] [address] [address] [address] Meaghan Gannon Albumin/Globulin [Mass ratio] 0.8 {ratio} Normal [facility] Comment on above: Performed By: #### L IPID, [id number] #### [facility] [address] [address] [address] Meaghan Gannon ALP [Catalytic activity/Vol] 99 U/L Normal 46-116 [facility] Comment on above: Performed By: #### L IPID, [id number] #### [facility] [address] [place] [address] Dr. Meaghan Gannon ALT [Catalytic activity/Vol] 21 U/L Normal 14-59 [facility] Comment on above: Performed By: #### L IPID, [id number] #### [facility] [address] [place] [address] Dr. Meaghan Gannon Anion gap [Moles/Vol] 12.9 mmol/L Normal [facility] Comment on above: Performed By: #### L IPID, [id number] #### [facility] [address] [place] [address] Dr. Meaghan Gannon AST [Catalytic activity/Vol] 54 U/L Critically high 15-37 [facility] Comment on above: Performed By: #### L IPID, [id number] #### [facility] [address] [place] [address] Dr. Meaghan Gannon Bilirubin [Mass/Vol] 0.7 mg/dL Normal 0.2-1.0 [facility] Comment on above: Performed By: #### L IPID, [id number] #### [facility] [address] [place] [address] Dr. Meaghan Gannon Calcium [Mass/Vol] 10.1 mg/dL Normal 8.5-10.1 [facility] Comment on above: Performed By: #### L IPID, [id number] #### [facility] [address] [place] [address] Dr. Meaghan Gannon Chloride [Moles/Vol] 101 mmol/L Normal 98-107 [facility] Comment on above: Performed By: #### L IPID, [id number] #### [facility] [address] [place] [address] Dr. Meaghan Gannon CO2 [Moles/Vol] 30.2 mmol/L Normal 21.0-32.0 [facility] Comment on above: Performed By: #### L IPID, [id number] #### [facility] [address] [address] [address] Meaghan Gannon Creatinine [Mass/Vol] 0.93 mg/dL Normal 0.55-1.02 [facility] Comment on above: Performed By: #### L IPID, [id number] #### [facility] [address] [address] [address] Meaghan Gannon EGFR-AF YEMENI >60 Normal >=60 [facility] Comment on above: Performed By: #### L IPID, [id number] #### [facility] [address] [place] [address] Dr. Meaghan Gannon EGFR-NON AF YEMENI >60 Normal >=60 [facility] Comment on above: Performed By: #### L IPID, [id number] #### [facility] [address] [place] [address] Dr. Meaghan Gannon Globulin (S) [Mass/Vol] 4.3 g/dL Normal [facility] Comment on above: Performed By: #### L IPID, [id number] #### [facility] [address] [place] [address] Dr. Meaghan Gannon Glucose [Mass/Vol] 100 mg/dL Normal 74-[address] [facility] Comment on above: Performed By: #### L IPID, [id number] #### [facility] [address] [place] [address] Dr. Meaghan Gannon Potassium [Moles/Vol] 4.1 mmol/L Normal 3.5-5.1 [facility] Comment on above: Performed By: #### L IPID, [id number] #### [facility] [address] [place] [address] Dr. Meaghan Gannon Protein [Mass/Vol] 7.9 g/dL Normal 6.4-8.[address] [facility] Comment on above: Performed By: #### L IPID, [id number] #### [facility] [address] [address] [address] Meaghan Gannon Sodium [Moles/Vol] 140 mmol/L Normal 136-145 [facility] Comment on above: Performed By: #### L IPID, [id number] #### [facility] [address] [address] [address] Meaghan Gannon Urea nitrogen [Mass/Vol] 10.0 mg/dL Normal 7.0-18.0 [facility] Comment on above: Performed By: #### L IPID, [id number] #### [facility] [address] [place] [address] Dr. Meaghan Gannon Urea nitrogen/Creatinine [Mass ratio] 10.8 mg/mg Normal [facility] Comment on above: Performed By: #### L IPID, [id number] #### [facility] [address] [place] [address] Dr. Meaghan Gannon SED RATE WESTERGREN 2022 SED RATE 32 mm/hr Critically high <=30 [facility] Comment on above: Performed By: #### S EDR #### [facility] [address] [place] [address] Dr. Meaghan Gannon TSH W/ REFLEX TO FT4on 06-26 TSH 0.637 uIU/mL Normal 0.358-3.74 0 [facility] Comment on above: Performed By: #### L IPID, [id number] #### [facility] [address] [place] [address] Dr. Meaghan Gannon XR CHEST 2 Von 06-26-2022 XR CHEST 2 V EXAM: XR CHEST 2 V HISTORY: Rheumatoid arthritis COMPARISON: 05/19/2021 TECHNIQUE: PA and lateral views of the chest. FINDINGS: The cardiomediastinal silhouette is normal. No focal consolidation is identified. There is no pneumothorax. No pleural effusion is noted. The osseous structures are intact. IMPRESSION: No acute cardiopulmonary process. Electronically authenticated by: ROSETTA MANNING Date: 2022-06-26 12:48 Normal [facility] Albumin [Mass/volume] in Ser um or PlasmaOrdered By: Ed Snyder on 05-02-2022 Albumin [Mass/Vol] 4.2 g/dL 3.2-5.5 [facility] Basophils Auto (Bld) [#/Vol] Ordered By: Ed Snyder on 05-02-2022 Basophils (Bld) [#/Vol] 0.1 10*3/uL 0.0-0.2 [facility] Basophils/100 WBC Auto (Bld) Ordered By: Ed Snyder on 05-02-2022 Basophils/100 WBC (Bld) 0.6 % . [facility] Complete Blood Count Auto Di ffon 05-02-2022 Basophils (Bld) [#/Vol] 0.1 10*3/uL Normal 0.0-0.2 [facility] Comment on above: Performed By: #### E SR, CBC, CMP #### [facility] [address] [place] [address] Basophils/100 WBC (Bld) 0.6 % Normal . [facility] Comment on above: Performed By: #### E SR, CBC, CMP #### [facility] [address] [place] [address] Eosinophils (Bld) [#/Vol] 0.0 10*3/uL Normal 0.0-0.45 [facility] Comment on above: Performed By: #### E SR, CBC, CMP #### [address] Eosinophils/100 WBC (Bld) 0.5 % Normal . [facility] Comment on above: Performed By: #### E SR, CBC, CMP #### [facility] [address] Erythrocyte distribution width (RBC) [Ratio] 14.8 % Normal 11.9-15.3 [facility] Comment on above: Performed By: #### E SR, CBC, CMP #### [facility] [address] Hematocrit (Bld) [Volume fraction] 46.9 % High 34.0-46.4 [facility] Comment on above: Performed By: #### E SR, CBC, CMP #### [facility] [address] Hemoglobin (Bld) [Mass/Vol] 15.2 g/dL Normal 11.8-15.4 [facility] Comment on above: Performed By: #### E SR, CBC, CMP #### [address] Lymphocytes (Bld) [#/Vol] 2.6 10*3/uL Normal 1.00-4.8 [facility] Comment on above: Performed By: #### E SR, CBC, CMP #### [address] Lymphocytes/100 WBC (Bld) 27.5 % Normal . [facility] Comment on above: Performed By: #### E SR, CBC, CMP #### [address] MCH (RBC) [Entitic mass] 28.5 pg Normal 24.7-34.3 [facility] Comment on above: Performed By: #### E SR, CBC, CMP #### [address] MCV (RBC) [Entitic vol] 88.1 fL Normal 80-100 [facility] Comment on above: Performed By: #### E SR, CBC, CMP #### [address] Mean Corpuscular HGB Conc 32.4 g/dL Normal 32.0-35.0 [facility] Comment on above: Performed By: #### E SR, CBC, CMP #### [place] [address] [place] Monocytes (Bld) [#/Vol] 1.0 10*3/uL High 0.0-0.8 [facility] Comment on above: Performed By: #### E SR, CBC, CMP #### [address] Monocytes/100 WBC (Bld) 10.3 % Normal . [facility] Comment on above: Performed By: #### E SR, CBC, CMP #### [facility] [address] [place] [address] [place] Neutrophils (Bld) [#/Vol] 5.8 10*3/uL Normal 1.8-7.7 [facility] Comment on above: Performed By: #### E SR, CBC, CMP #### [facility] [address] [place] [address] [place] Neutrophils/100 WBC (Bld) 61.1 % Normal . [facility] Comment on above: Performed By: #### E SR, CBC, CMP #### [facility] [address] NRBC% 0.1 /100{WBC} Normal 0-0.5 [facility] Comment on above: Performed By: #### E SR, CBC, CMP #### [facility] [address] Platelet mean volume (Bld) [Entitic vol] 10.2 fL Normal 6.3-10.7 [facility] Comment on above: Performed By: #### E SR, CBC, CMP #### [facility] [address] [place] [address] [place] Platelets (Bld) [#/Vol] 357 10*3/uL Normal 150-450 [facility] Comment on above: Performed By: #### E SR, CBC, CMP #### [facility] [address] RBC (Bld) [#/Vol] 5.32 10*6/uL High 3.60-5.00 [facility] Comment on above: Performed By: #### E SR, CBC, CMP #### [facility] [address] [place] [address] [place] WBC (Bld) [#/Vol] 9.5 10*3/uL Normal 3.8-11.6 [facility] Comment on above: Performed By: #### E SR, CBC, CMP #### [facility] [address] Comprehensive Metabolic Pane francisco 05-02-2022 Albumin [Mass/Vol] 4.2 g/dL Normal 3.2-5.5 [facility] Comment on above: Performed By: #### E SR, CBC, CMP #### [address] Albumin/Globulin [Mass ratio] 1.2 {ratio} Normal [facility] Comment on above: Performed By: #### E SR, CBC, CMP #### [address] ALP [Catalytic activity/Vol] 105 U/L High 32-92 [facility] Comment on above: Result Comment: PERF ORMED BY: [place] [address] PATHOLOGIST PRODUCT SAFETY TECHNICAL ASSISTANT ROSANNA MARIN M.D. Performed By: #### E SR, CBC, CMP #### [address] ALT [Catalytic activity/Vol] 12 U/L Normal 10-60 [facility] Comment on above: Performed By: #### E SR, CBC, CMP #### [address] Anion gap [Moles/Vol] 12.9 mmol/L Normal 6.0-15.0 [facility] Comment on above: Performed By: #### E SR, CBC, CMP #### [address] AST [Catalytic activity/Vol] 16 U/L Normal 10-42 [facility] Comment on above: Performed By: #### E SR, CBC, CMP #### [facility] [address] [place] [address] Bilirubin [Mass/Vol] 0.7 mg/dL Normal 0.3-1.2 [facility] Comment on above: Performed By: #### E SR, CBC, CMP #### [facility] [address] [place] [address] Calcium [Mass/Vol] 9.9 mg/dL Normal 8.2-10.2 [facility] Comment on above: Performed By: #### E SR, CBC, CMP #### [facility] [address] [place] [address] [place] Chloride [Moles/Vol] 99 mmol/L Normal 95-114 [facility] Comment on above: Performed By: #### E SR, CBC, CMP #### [facility] [address] CO2 [Moles/Vol] 26.6 mmol/L Normal 22.0-30.0 [facility] Comment on above: Performed By: #### E SR, CBC, CMP #### [facility] [address] Creatinine [Mass/Vol] 0.89 mg/dL Normal 0.44-1.03 [facility] Comment on above: Performed By: #### E SR, CBC, CMP #### [facility] [address] [place] [address] Estimated GFR ( Shanna > 60 [facility] Comment on above: Result Comment: GFR estimated reference range: According to KDOQI guidelines, <60 ml/min/1.73m2 is sufficient to diagnose a patient with chronic kidney disease. Performed By: #### E SR, CBC, CMP #### [facility] [address] [place] [address] Estimated GFR (Non- Am > 60 [facility] Comment on above: Performed By: #### E SR, CBC, CMP #### [facility] [address] Globulin (S) [Mass/Vol] 3.4 g/dL [facility] Comment on above: Performed By: #### E SR, CBC, CMP #### [facility] [address] [place] [address] Glucose [Mass/Vol] 91 mg/dL Normal 70-100 [facility] Comment on above: Result Comment: [place] Glucose Reference Range is dependent on time and content of last meal. Glucose of more than 200 mg/dL in a nonstressed, ambulatory subject supports the diagnosis of Diabetes Mellitus. ADA recommended reference range Performed By: #### E SR, CBC, CMP #### [facility] [address] [place] [id number] [place] Potassium [Moles/Vol] 4.5 mmol/L Normal 3.5-5.1 [facility] Comment on above: Performed By: #### E SR, CBC, CMP #### [facility] [address] [place] [address] [place] Protein [Mass/Vol] 7.6 g/dL Normal 6.1-7.9 [facility] Comment on above: Performed By: #### E SR, CBC, CMP #### [facility] [address] [place] [address] [place] Sodium [Moles/Vol] 134 mmol/L Low 136-146 [facility] Comment on above: Performed By: #### E SR, CBC, CMP #### [facility] [address] [place] [address] [place] Urea nitrogen [Mass/Vol] 10 mg/dL Normal 9-23 [facility] Comment on above: Performed By: #### E SR, CBC, CMP #### [facility] [address] [place] [address] [place] Creatinine and Glomerular fi ltration rate.predicted panel (S/P/Bld)Ordered By: Ed Snyder on 05-02-2022 Creatinine [Mass/Vol] 0.89 mg/dL 0.44-1.03 [facility] Eosinophils Auto (Bld) [#/Vo l]Ordered By: Ed Snyder on 05-02-2022 Eosinophils (Bld) [#/Vol] 0.0 10*3/uL 0.0-0.45 [facility] Eosinophils/100 WBC Auto (Bl d)Ordered By: Ed Snyder on 05-02-2022 Eosinophils/100 WBC (Bld) 0.5 % . [facility] Erythrocyte Sedimentation Ra deng 05-02-2022 ESR (Bld) [Velocity] 62 mm/h High 0-29 [facility] Comment on above: Result Comment: PERF ORMED BY: [facility] [address] [place] [address] PATHOLOGIST PRODUCT SAFETY TECHNICAL ASSISTANT ROSANNA MARIN M.D. Performed By: #### E SR, CBC, CMP #### [facility] [address] Erythrocyte distribution wid th Auto (RBC) [Ratio]Ordered By: Ed Snyder on 05-02-2022 Erythrocyte distribution width (RBC) [Ratio] 14.8 % 11.9-15.3 [facility] Erythrocyte sedimentation ra te by Photometric methodOrdered By: Ed Snyder on 05-02-2022 ESR Photometric method (Bld) [Velocity] 62 mm/hr 0-29 [facility] Estimated glomerular filtrat ion rate (GFR) non- AmericanOrdered By: Ed Snyder on 05-02-2022 GFR/1.73 sq M.predicted among non-blacks MDRD (S/P/Bld) [Vol rate/Area] > 60 mL/Min [facility] Globulin Calc (S) [Mass/Vol] Ordered By: Ed Sndyer on 05-02-2022 Globulin (S) [Mass/Vol] 3.4 g/dL [facility] Hematocrit Auto (Bld) [Volum e fraction]Ordered By: Ed Snyder on 05-02-2022 Hematocrit (Bld) [Volume fraction] 46.9 % 34.0-46.4 [facility] Hemoglobin [Mass/volume] in BloodOrdered By: Ed Snyder on 05-02-2022 Hemoglobin (Bld) [Mass/Vol] 15.2 g/dL 11.8-15.4 [facility] Leukocytes [#/volume] correc arin for nucleated erythrocytes in Blood by Automated counOrdered By: Ed Snyder on 05-02-2022 WBC corrected for nucl RBC Auto (Bld) [#/Vol] 9.5 10*3/uL 3.8-11.6 [facility] Lymphocytes Auto (Bld) [#/Vo l]Ordered By: Ed Snyder on 05-02-2022 Lymphocytes (Bld) [#/Vol] 2.6 10*3/uL 1.00-4.8 [facility] Lymphocytes/100 WBC Auto (Bl d)Ordered By: Ed Snyder on 05-02-2022 Lymphocytes/100 WBC (Bld) 27.5 % . [facility] MCH Auto (RBC) [Entitic mass ]Ordered By: Ed Snyder on 05-02-2022 MCH (RBC) [Entitic mass] 28.5 pg 24.7-34.3 [facility] MCHC Auto (RBC) [Mass/Vol]Or dered By: Ed Snyder on 05-02-2022 MCHC (RBC) [Mass/Vol] 32.4 g/dL 32.0-35.0 [facility] MCV Auto (RBC) [Entitic vol] Ordered By: Ed Snyder on 05-02-2022 MCV (RBC) [Entitic vol] 88.1 fL 80-100 [facility] Monocytes Auto (Bld) [#/Vol] Ordered By: Ed Snyder on 05-02-2022 Monocytes (Bld) [#/Vol] 1.0 10*3/uL 0.0-0.8 [facility] Monocytes/100 WBC Auto (Bld) Ordered By: Ed Snyder on 05-02-2022 Monocytes/100 WBC (Bld) 10.3 % . [facility] Neutrophils Auto (Bld) [#/Vo l]Ordered By: Ed Snyder on 05-02-2022 Neutrophils (Bld) [#/Vol] 5.8 10*3/uL 1.8-7.7 [facility] Neutrophils/100 WBC Auto (Bl d)Ordered By: Ed Snyder on 05-02-2022 Neutrophils/100 WBC (Bld) 61.1 % . [facility] No Panel InformationOrdered By: Ed Snyder on 05-02-2022 Estimated GFR () > 60 mL/Min [facility] Comment on above: GFR estimated refere nce range: According to KDOQI guidelines, <60 ml/min/1.73m2 is sufficient to diagnose a patient with chronic kidney disease. Pharmacy Creatinine Clearance (Chem N/A [facility] Nucleated erythrocytes [Pres ence] in Blood by Automated countOrdered By: Ed Snyder on 05-02-2022 Nucleated RBC Auto Ql (Bld) 0.1 /100{WBC} 0-0.5 [facility] Platelet mean volume Auto (B ld) [Entitic vol]Ordered By: Ed Snyder on 05-02-2022 Platelet mean volume (Bld) [Entitic vol] 10.2 fL 6.3-10.7 [facility] Platelets Auto (Bld) [#/Vol] Ordered By: Ed Snyder on 05-02-2022 Platelets (Bld) [#/Vol] 357 10*3/uL 150-450 [facility] Protein [Mass/volume] in Ser um or PlasmaOrdered By: Ed Snyder on 05-02-2022 Protein [Mass/Vol] 7.6 g/dL 6.1-7.9 [facility] RBC Auto (Bld) [#/Vol]Ordere d By: Ed Snyder on 05-02-2022 RBC (Bld) [#/Vol] 5.32 10*6/uL 3.60-5.00 [facility] Serum or plasma alanine ramos otransferase measurement without P-5'-P (enzymatic activiOrdered By: Ed Snyder on 05-02-2022 ALT No additional P-5'-P [Catalytic activity/Vol] 12 U/L 10-60 [facility] Serum or plasma albumin/glob ulin mass ratioOrdered By: Ed Snyder on 05-02-2022 Albumin/Globulin [Mass ratio] 1.2 {ratio} [facility] Serum or plasma alkaline christine sphatase measurement (enzymatic activity/volume)Ordered By: Ed Snyder on 05-02-2022 ALP [Catalytic activity/Vol] 105 U/L 32-92 [facility] Serum or plasma anion gap de terminationOrdered By: Ed Snyedr on 05-02-2022 Anion gap [Moles/Vol] 12.9 mmol/L 6.0-15.0 [facility] Serum or plasma aspartate am inotransferase measurement (enzymatic activity/volume)Ordered By: Ed Snyder on 05-02-2022 AST [Catalytic activity/Vol] 16 U/L 10-42 [facility] Serum or plasma calcium tiara urement (mass/volume)Ordered By: Ed Snyder on 05-02-2022 Calcium [Mass/Vol] 9.9 mg/dL 8.2-10.2 [facility] Serum or plasma chloride levar surement (moles/volume)Ordered By: Ed Snyder on 05-02-2022 Chloride [Moles/Vol] 99 mmol/L 95-114 [facility] Serum or plasma glucose tiara urement (mass/volume)Ordered By: Ed Snyder on 05-02-2022 Glucose [Mass/Vol] 91 mg/dL 70-100 [facility] Comment on above: ADA recommended refe rence rangeRandom Glucose Reference Range is dependent on time and content of last meal. Glucose of more than 200 mg/dL in a nonstressed, ambulatory subject supports the diagnosis of Diabetes Mellitus. Serum or plasma potassium me asurement (moles/volume)Ordered By: Ed Snyder on 05-02-2022 Potassium [Moles/Vol] 4.5 mmol/L 3.5-5.1 [facility] Serum or plasma sodium measu rement (moles/volume)Ordered By: Ed Snyder on 05-02-2022 Sodium [Moles/Vol] 134 mmol/L 136-146 [facility] Serum or plasma total biliru bin measurement (mass/volume)Ordered By: Ed Snyder on 05-02-2022 Bilirubin [Mass/Vol] 0.7 mg/dL 0.3-1.2 [facility] Serum or plasma total carbon dioxide measurement (moles/volume)Ordered By: Ed Snyder on 05-02-2022 CO2 [Moles/Vol] 26.6 mmol/L 22.0-30.0 [facility] Serum or plasma urea nitroge n measurement (mass/volume)Ordered By: Ed Snyder on 05-02-2022 Urea nitrogen [Mass/Vol] 10 mg/dL 9-23 [facility] WBC Auto (Bld) [#/Vol]Ordere d By: Ed Snyder on 05-02-2022 WBC (Bld) [#/Vol] 9.5 10*3/uL 3.8-11.6 [facility] Urinalysis - AUTOMATEDon Appearance (U) Cloudy [place] [employer] Other Bilirubin Ql (U) Negative [employer] Other Color (U) Light Yellow [employer] Other Glucose Ql (U) 250 [employer] Other Hemoglobin Ql (U) Small [employer] Other Ketones Ql (U) Negative [employer] Other Leukocyte esterase Test strip Ql (U) Trace [employer] Other Nitrite Ql (U) Negative [employer] Other pH (U) 5.0 [pH] [employer] Other Protein Ql (U) Negative [employer] Other Specific gravity (U) [Rel density] 1.015 [employer] Other Urobilinogen (U) [Mass/Vol] 0.2 mg/dL [employer] Other Urinalysis - AUTOMATED No rt paOnde Other Urine Cultureon 03-15-2022 Bacteria identified Cx Nom (U) [employer] Other Urine culture routineOrdered By: Drew White on 03-15-2022 Bacteria identified Cx Nom (U) bacilli - 2 Days [facility] MAGNESIUMon 01-31-2022 Magnesium [Mass/Vol] 2.1 mg/dL Normal 1.8-2.4 [facility] Comment on above: Performed By: #### C MP, MG, TSH #### [facility] [address] [place] [address] [address] Meaghan Gannon PROF 14(COMP METB)on 022 Albumin [Mass/Vol] 3.5 g/dL Normal 3.4-5.0 [facility] Comment on above: Performed By: #### C MP, MG, TSH #### [facility] [address] [place] [address] [address] Meaghan Gannon Albumin/Globulin [Mass ratio] 0.8 {ratio} Normal [facility] Comment on above: Performed By: #### C MP, MG, TSH #### [facility] [address] [place] [address] [address] Meaghan Gannon ALP [Catalytic activity/Vol] 103 U/L Normal 46-116 [facility] Comment on above: Performed By: #### C MP, MG, TSH #### [facility] [address] [place] [address] [address] Meaghan Gannon ALT [Catalytic activity/Vol] 13 U/L Critically low 14-59 [facility] Comment on above: Performed By: #### C MP, MG, TSH #### [facility] [address] [place] [address] Dr. Meaghan Gannon Anion gap [Moles/Vol] 9.8 mmol/L Normal [facility] Comment on above: Performed By: #### C MP, MG, TSH #### [facility] [address] [place] [address] [address] Meaghan Gannon AST [Catalytic activity/Vol] 39 U/L Critically high 15-37 [facility] Comment on above: Performed By: #### C MP, MG, TSH #### [facility] [address] [place] [address] [address] Meaghan Gannon Bilirubin [Mass/Vol] 0.5 mg/dL Normal 0.2-1.0 [facility] Comment on above: Performed By: #### C MP, MG, TSH #### [facility] [address] [place] [address] [address] Meaghan Gannon Calcium [Mass/Vol] 9.7 mg/dL Normal 8.5-10.1 [facility] Comment on above: Performed By: #### C MP, MG, TSH #### [facility] [address] [place] [address] [address] Meaghan Gannon Chloride [Moles/Vol] 102 mmol/L Normal 98-107 [facility] Comment on above: Performed By: #### C MP, MG, TSH #### [facility] [address] [place] [address] [address] Meaghan Gannon CO2 [Moles/Vol] 29.0 mmol/L Normal 21.0-32.0 [facility] Comment on above: Performed By: #### C MP, MG, TSH #### [facility] [address] [place] [address] [address] Meaghan Gannon Creatinine [Mass/Vol] 0.94 mg/dL Normal 0.55-1.02 [facility] Comment on above: Performed By: #### C MP, MG, TSH #### [facility] [address] [place] [address] [address] Meaghan Gannon EGFR-AF YEMENI >60 Normal >=60 [facility] Comment on above: Performed By: #### C MP, MG, TSH #### [facility] [address] [place] [address] [address] Meaghan Gannon EGFR-NON AF YEMENI =60 Normal >=60 [facility] Comment on above: Performed By: #### C MP, MG, TSH #### [facility] [address] [place] [address] [address] Meaghan Gannon Globulin (S) [Mass/Vol] 4.5 g/dL Normal [facility] Comment on above: Performed By: #### C MP, MG, TSH #### [facility] [address] [address] [address] Meaghan Gannon Glucose [Mass/Vol] 89 mg/dL Normal 74-106 [facility] Comment on above: Performed By: #### C MP, MG, TSH #### [facility] [address] [place] [address] [address] Meaghan Gannon Potassium [Moles/Vol] 3.8 mmol/L Normal 3.5-5.1 [facility] Comment on above: Performed By: #### C MP, MG, TSH #### [facility] [address] [address] [address] Meaghan Gannon Protein [Mass/Vol] 8.0 g/dL Normal 6.4-8.2 [facility] Comment on above: Performed By: #### C MP, MG, TSH #### [facility] [address] [place] [address] Dr. Meaghan Gannon Sodium [Moles/Vol] 137 mmol/L Normal 136-145 [facility] Comment on above: Performed By: #### C MP, MG, TSH #### [facility] [address] [place] [address] Dr. Meaghan Gannon Urea nitrogen [Mass/Vol] 18.0 mg/dL Normal 7.0-18.0 [facility] Comment on above: Performed By: #### C MP, MG, TSH #### [facility] [address] [place] [address] Dr. Meaghan Gannon Urea nitrogen/Creatinine [Mass ratio] 19.1 mg/mg Normal [facility] Comment on above: Performed By: #### C MP, MG, TSH #### [facility] [address] [place] [address] Dr. Meaghan Gannon TSHon 01-31-2022 TSH 1.188 uIU/mL Normal 0.358-3.74 0 [facility] Comment on above: Performed By: #### C MP, MG, TSH #### [facility] [address] [place] [address] Dr. Meaghan Gannon MAGNESIUMon 09-29-2021 Magnesium [Mass/Vol] 2.1 mg/dL Normal 1.8-2.4 [facility] Comment on above: Performed By: #### L IPID, [id number] #### [facility] [address] [place] [address] Dr. Meaghan Gannon PROF CHEM 8 (BAS METB)on Anion gap [Moles/Vol] 10.7 mmol/L Normal [facility] Comment on above: Performed By: #### L IPID, TSHRFT4 #### [facility] [address] [place] [address] Dr. Meaghan Gannon Calcium [Mass/Vol] 9.5 mg/dL Normal 8.5-10.1 [facility] Comment on above: Performed By: #### L IPID, TSHRFT4 #### [facility] [address] [place] [address] [address] Meaghan Gannon Chloride [Moles/Vol] 103 mmol/L Normal 98-107 [facility] Comment on above: Performed By: #### L IPID, TSHRFT4 #### [facility] [address] [address] [address] Meaghan Gannon CO2 [Moles/Vol] 30.4 mmol/L Normal 21.0-32.0 [facility] Comment on above: Performed By: #### L IPID, TSHRFT4 #### [facility] [address] [place] [address] Dr. Meaghan Gannon Creatinine [Mass/Vol] 1.13 mg/dL Critically high 0.55-1.02 [facility] Comment on above: Performed By: #### L IPID, TSHRFT4 #### [facility] [address] [address] [address] Meaghan Gannon EGFR-AF YEMENI 59 mL/min/1.73m2 Critically low >=60 [facility] Comment on above: Performed By: #### L IPID, TSHRFT4 #### [facility] [address] [place] [address] Dr. Meaghan Gannon EGFR-NON AF YEMENI 49 mL/min/1.73m2 Critically low >=60 [facility] Comment on above: Performed By: #### L IPID, TSHRFT4 #### [facility] [address] [place] [address] Dr. Meaghan Gannon Glucose [Mass/Vol] 93 mg/dL Normal 74-106 [facility] Comment on above: Performed By: #### L IPID, TSHRFT4 #### [facility] [address] [place] [address] Dr. Meaghan Gannon Potassium [Moles/Vol] 4.1 mmol/L Normal 3.5-5.1 [facility] Comment on above: Performed By: #### L IPID, TSHRFT4 #### [facility] [address] [address] [address] Meaghan Gannon Sodium [Moles/Vol] 140 mmol/L Normal 136-[address] [facility] Comment on above: Performed By: #### L IPID, TSHRFT4 #### [facility] [address] [address] [address] Meaghan Gannon Urea nitrogen [Mass/Vol] 18.0 mg/dL Normal 7.0-18.0 [facility] Comment on above: Performed By: #### L IPID, TSHRFT4 #### [facility] [address] [place], [place] [address] Dr. Meaghan Gannon Urea nitrogen/Creatinine [Mass ratio] 15.9 mg/mg Normal [facility] Comment on above: Performed By: #### L IPID, TSHRFT4 #### [facility] [address] [address] [address] Meaghan Gannon Tobacco Screening.on 022 Adult depression screening assessment No [facility] 250 DO Work Phone: Tobacco use status [facility] b) No [facility] 250 DO Work Phone: Heart Rateon 06-07-2021 Heart Rate Regular [facility] 250 DO Work Phone: Office Visit (Cardiology)on 06-07-2021 Follow-up visit Diagnoses/Problems Assessed Benign essential hypertension (401.1) (I10) Orders Benign essential hypertension Stop: Furosemide 40 MG Oral Tablet Persistent atrial fibrillation Stop: Potassium Chloride ER 10 MEQ Oral Tablet Extended Release Unlinked Stop: Potassium Chloride 10 MEQ TBCR Patient Instructions By signing my name below, I, Yocasta Maza LPN, Scribe, attest that this documentation has been prepared under the direction and in the presence of Dr. Marty Lynn MD. All medical record entries made by the Scribe were at my direction and personally dictated by me. I have reviewed the chart and agree that the record accurately reflects my personal performance of the history, physical exam, discussion and plan. Please bring all medicines, vitamins, and herbal supplements with you when you come to the office. Prescriptions will not be filled unless you are compliant with your follow up appointments or have a follow up appointment scheduled as per instruction of your physician. Refills should be requested at the time of your visit. Keep appointment as scheduled Chief Complaint ARIAN LANE is being seen for hypertension and BP Check. Patient is in the office for hypertension management since lisinopril 5 mg daily was added her blood pressure has become under control. She does not require diuretic therapy and potassium which I will discontinue. Active Problems Problems Benign essential hypertension (401.1) (I10) Assessed By: Lacey Sabillon; Last Assessed: 07 Jun 2021 Current Meds Medication NameInstruction Albuterol Sulfate (2.5 MG/3ML) 0.083% Inhalation Nebulization SolutionUSE DIRECTED. ALPRAZolam ER 1 MG Oral Tablet Extended Release 24 Hour1 tablet three times daily as needed Atorvastatin Calcium 40 MG Oral TabletTAKE 1 TABLET AT BEDTIME. busPIRone HCl - 15 MG Oral TabletTAKE 1 TABLET TWICE DAILY. Clopidogrel Bisulfate 75 MG Oral TabletTAKE 1 TABLET BY MOUTH EVERY DAY Ergocalciferol 1.25 MG (13786 UT) Oral CapsuleTAKE 1 CAPSULE WEEKLY. Furosemide 40 MG Oral TabletTAKE ONE TABLET BY MOUTH DAILY AT 8 AM LaMICtal XR 50 MG Oral Tablet Extended Release 24 HourTake 1 tablet daily Levothyroxine Sodium 88 MCG Oral TabletTAKE 1 TABLET DAILY DIRECTED. Lisinopril 5 MG Oral TabletTAKE 1 TABLET DAILY. Nitroglycerin 0.4 MG Sublingual Tablet SublingualPLACE 1 TABLET UNDER THE TONGUE EVERY 5 MINUTES UP TO 3 DOSES NEEDED FOR CHEST PAIN. Pantoprazole Sodium 40 MG Oral Tablet Delayed ReleaseTAKE 1 TABLET DAILY. Potassium Chloride 10 MEQ TBCRTAKE 1 TABLET 3 TIMES DAILY. Potassium Chloride ER 10 MEQ Oral Tablet Extended ReleaseTake 1 tablet by mouth three times a day Sotalol HCl - 120 MG Oral TabletTAKE 1/2 TABLET TWICE A DAY Warfarin Sodium 5 MG Oral TabletTAKE 1 TABLET DAILY DIRECTED by [facility] Zoloft 50 MG Oral TabletTAKE 1 AND 1/2 TABLETS DAILY. Patient did not bring medications list or bottles. Updated verbally with patient. Allergies Medication Compazine Recorded By: Toshia Hyatt; 04/12/2021 7:02:42 AM Vitals Vital Signs Recorded: 07Jun2021 02:54PMRecorded: 07Jun2021 02:51PM [id number], LUE, [id number], RUE, Sitting [id number], LUE, [id number], RUE, Sitting Heart Rate56, L Radial Pulse QualityRegular, L Radial Height5 ft 4 in Zmqkip607 lb BMI Qfomkqnntu16.58 kg/m2 BSA Calculated1.89 Signatures Electronically signed by : Marty Lynn MD; Jun 07 2021 5:17PM EST (Author) Normal [employer] Office Visit (Cardiology)on 04-28-2021 Follow-up visit Diagnoses/Problems Assessed Persistent atrial fibrillation (427.31) (I48.19) Status post radiofrequency ablation at High risk medication use (V58.69) (Z79.899) Benign essential hypertension (401.1) (I10) Class 1 obesity with body mass index (BMI) of 34.0 to 34.9 in adult (278.00,V85.34) (E66.9,Z68.34) Dyslipidemia (272.4) (E78.5) S/P PTCA (percutaneous transluminal coronary angioplasty) (V45.82) (Z98.61) LAD 2019 Orders Benign essential hypertension Start: Lisinopril 5 MG Oral Tablet; TAKE 1 TABLET DAILY Benign essential hypertension, Dyslipidemia, High risk medication use, Persistent atrial fibrillation Lipid Panel; Status:Active; Requested for:[id number]; Benign essential hypertension, High risk medication use, Persistent atrial fibrillation ALT - Alanine Aminotransferase, Serum; Status:Active; Requested for:[id number]; AST; Status:Active; Requested for:[id number]; Basic Metabolic Panel; Status:Active; Requested for:[id number]; Complete Blood Count; Status:Active; Requested for:[id number]; SocHx: Never a smoker Tobacco Use Screening; Status:Complete; Done: [id number] Patient Instructions By signing my name below, I, William Rangel LPNScribe, attest that this documentation has been prepared under the direction and in the presence of Dr. Marty Lynn MD. All medical record entries made by the Scribe were at my direction and personally dictated by me. I have reviewed the chart and agree that the record accurately reflects my personal performance of the history, physical exam, discussion and plan. Please bring all medicines, vitamins, and herbal supplements with you when you come to the office. Prescriptions will not be filled unless you are compliant with your follow up appointments or have a follow up appointment scheduled as per instruction of your physician. Refills should be requested at the time of your visit. Follow up in 6 months Blood pressure follow up in 3 weeks Chief Complaint ARIAN LANE is being seen for a 6 month follow-up of. Patient is in the office for follow-up for the problems noted below. Since her last visit she has not had any major breakthrough atrial fibrillation. She is on sotalol 60 mg twice daily and Coumadin therapy. She continues to smoke half pack of cigarettes per day something I always discouraged her from doing. She has no symptoms suggestive angina pectoris or heart failure. Her weight is still working progress. Her examination is unremarkable for obesity and mild hypertension. EKG confirmed normal sinus rhythm and normal QTc interval. Assessment/recommendation s: 1?coronary artery disease single vessel status post plasty to the LAD in April 2018. She will remain on Plavix along with statin therapy, there has been no recent angina pectoris patient remains at risk for recurrent disease due to active tobacco abuse, this was made clear to her 2?paroxysmal atrial fibrillation status post radiofrequency ablation at [facility] with recurrent atrial fibrillation, presently on sotalol 60 mg twice daily. ECG confirmed normal sinus rhythm today. Patient remains on Coumadin 3?hyperlipidemia on statin therapy , lipid profile is due and was requested 4? obesity encouraged more weight control with diet and exercise 5?hypertension on medical therapy not completely under control, will increase lisinopril up to 5 mg daily and check her blood pressure readings in few weeks 6?rheumatoid arthritis on methotrexate and prednisone followed by rheumatology 7?high-risk medication with warfarin and sotalol with no complications. 8?tobacco abuse, was counseled again on tobacco cessation Current Meds Medication NameInstruction Albuterol Sulfate (2.5 MG/3ML) 0.083% Inhalation Nebulization SolutionUSE DIRECTED. ALPRAZolam ER 1 MG Oral Tablet Extended Release 24 Hour1 tablet three times daily as needed Atorvastatin Calcium 40 MG Oral TabletTAKE 1 TABLET AT BEDTIME. busPIRone HCl - 15 MG Oral TabletTAKE 1 TABLET TWICE DAILY. Clopidogrel Bisulfate 75 MG Oral TabletTAKE 1 TABLET BY MOUTH EVERY DAY Ergocalciferol 1.25 MG (92279 UT) Oral CapsuleTAKE 1 CAPSULE WEEKLY. Furosemide 40 MG Oral TabletTAKE 1 TABLET DAILY. LaMICtal XR 50 MG Oral Tablet Extended Release 24 HourTake 1 tablet daily Levothyroxine Sodium 88 MCG Oral TabletTAKE 1 TABLET DAILY DIRECTED. Lisinopril 2.5 MG Oral TabletTAKE 1 TABLET BY MOUTH EVERY DAY Nitroglycerin 0.4 MG Sublingual Tablet SublingualPLACE 1 TABLET UNDER THE TONGUE EVERY 5 MINUTES UP TO 3 DOSES NEEDED FOR CHEST PAIN. Pantoprazole Sodium 40 MG Oral Tablet Delayed ReleaseTAKE 1 TABLET DAILY. Potassium Chloride 10 MEQ TBCRTAKE 1 TABLET 3 TIMES DAILY. Sotalol HCl - 120 MG Oral Tablet1/2 tablet twice a day Warfarin Sodium 5 MG Oral TabletTAKE 1 TABLET DAILY DIRECTED by [facility] Zoloft 50 MG Oral TabletTAKE 1 AND 1/2 TABLETS DAILY. Allergies Medication Compazine Recorded By: Toshia Hyatt; 04/12/2021 7:02:42 (more content not included)... Normal YR.MRKT Tobacco Screening.on 022 Tobacco use status CPHS b) No [facility] Heart-Sandirma y 250 DO Work Phone: Daily Progress Note-Electrop hysiologyon 05-14-2019 Daily Progress Note-Electrophysiology Service: Electrophysiology Subjective Data: ARIAN LANE is a 59 year old Female who is Hospital Day # 2. Additional Information: -Pt was examined at 9:45AM and tele reviewed -Pt was seen by EP fellowBen Dubois MD this AM also -denies CP/dyspnea/LH/palps; cannot feel that she is in AFL -pt is NPO for DCCV today per Dr Wall Objective Data: Objective Information: T PRBPSpO2 [id number]/8697% Date/Time05/14 12: 13: 13: 13: 13:00 Range(36.2C - 36.8C ) (75 - 98 ) (11 - 26 ) (85 - 115 )/ (48 - 86 ) (89% - 99% ) Pain reported at 05/14 12:00: 0 = None Tele reviewed: AFL 80s EKG 05/14/19 8:45AM reviewed by EP fellow also: atyp AFL 80s, no acute changes Physical Exam Constitutional: A+O x 3, no distress Eyes: Anicteric Head/Neck: NC/AT Respiratory/Thorax: CTAB Cardiovascular: irreg, no rub Gastrointestinal: soft, NT/ND +BS Extremities: no LE edema RFV access site-no bleeding, hematoma, or ecchymosis Psychological: Appropriate speech and affect. Skin: Warm and dry Medication Medications: Continuous Medications ------- No continuous medications are active Scheduled Medications ------- 1. Aspirin Chewable: 81 mg Oral Daily 2. busPIRone (BUSPAR): 15 mg Oral Every 12 Hours 3. Clopidogrel: 75 mg Oral Daily 4. dilTIAZem (CARDIZEM CD) Extended Release (24 hour): 180 mg Oral Every 24 Hours 5. Levothyroxine: 88 microgram(s) Oral Daily 6. Lisinopril: 5 mg Oral Daily 7. Ophthalmic Ointment: 1 application(s) Right Eye Every 12 Hours 8. Pantoprazole: 40 mg Oral Daily 9. predniSONE: 2.5 mg Oral Every 24 Hours 10. Warfarin: 5 mg Oral Daily PRN Medications ------- 1. Acetaminophen: 650 mg Oral Every 6 Hours 2. ALPRAZolam: 0.5 mg Oral Every 8 Hours 3. Morphine Injectable: 1 mg IntraVenous Push Every 4 Hours 4. Ondansetron Injectable: 4 mg IntraVenous Push Every 8 Hours 5. Zolpidem: 5 mg Oral At Bedtime Recent Lab Results Results: I have reviewed these laboratory results: PT + INR, Plasma 14-May-2019 11:23:00 ResultValue Prothrombin Time, Plasma 28.5 H International Normalized Ratio, Plasma 2.5 H Assessment and Plan: Assessment: 59yo F with HTN, HLD, CAD/PCI LAD 04/2018, CVA 2001, RA on Pred, and AF on Coumadin (managed by [facility] coumadin clinic). Follows with cards Dr Lynn. Underwent PVI and atypical AFL ablation yesterday but went back into AFL last night. Per Fellow, POCT INR yesterday was 1.9; Lovenox 1mg/kg x [address] Wall while awaiting stat INR, which is 2.5 today. Awaiting DCCV then will be dc'd home. *DCCV unsuccessful x 2 shocks. Pt really wants to go home today. Per Dr Wall, dc diltiazem ER and start Amio 400mg 3x/d x 3 days, then 200mg daily (mini-load). Pt to get EKG in Dr Lynn's office in 1 week (says she has appt next week)-->if still in AFL, can get DCCV locally. Pt was advised on coumadin/AMio interaction and that she would likely need less coumadin. Pt agrees to get INR on Sun05/16/19. -MED changes: Cont Protonix daily as home, Dc dilt, Amio as above(called in Rx) -post procedure written instructions reviewed with pt and all questions answered -Pt was advised on importance of adherence to Coumadin regimen and rec to have minimum weekly INR x 4 weeks then interval as determined by Coumadin clinic -90d intermittent EM given to pt by [employer] who instructed pt on use -F/u with cards Dr Lynn 1 month (pt to call for appt) -F/w Dr Wall 08/15/19 in [place] [address] PA-C, [facility] Cardiac Electrophysiology Electronic Signatures for Addendum Section: William Espana ([facility]) (Signed Addendum 14-May-2019 16:21) Greater than 30 min spent on coordination of discharge. Electronic Signatures: William Espana (P[facility]) (Signed 14-May-2019 16:21) Authored: Service, Subjective Data, Objective Data, Assessment and Plan, Signature/Cosignature/Att estation Last Updated: 14-May-2019 16:21 by William Espana ([facility]) Normal [facility] Discharge Planning [id number] 0 05-14-2019 Discharge Planning Note2 Discharge Planning: Anticipated Discharge [id number] Discharge Planning 05/14/19 16:45 Pt given discharge instructions. Prescription sent to pharmacy. Pt and pt's daughter verbalized understanding of discharge instructions. peripheral IV removed and pt removed from tele. right groin site dry/intact with no hematoma. No other discharge needs at this time- Galina Ventura RN Assessment: Discharge Planning Assessment [id number] Stated Reason for Admissionprocedure (1) [place] Lives With[place](1) Living Arrangementshouse(1) Resource/Environmental Concernsnone(1) [place]) Services Anticipated at Transitionnon(1) Electronic Signatures: Galina Ventura ([facility]) (Signed 14-May-2019 16:54) Authored: Discharge Planning Note2 Last Updated: 14-May-2019 16:54 by Galina Ventura ([facility]) References: 1. Data Referenced From Patient Profile - Adult v2 13-May-2019 08:21 Normal [facility] PT/INRon 05-14-2019 INR Coag (PPP) [Relative time] 2.5 {INR} High 0.9 - 1.1 [facility] Comment on above: Performed By: #### P TINR #### [facility] [id number] [place] [address] PT Coag (PPP) [Time] 28.5 s High 9.7 - 12.7 [facility] Comment on above: Performed By: #### P TINR #### [place] [address] [place] [address] ACT-HIGH RANGEon 05-13-2019 ACT-HIGH RANGE 221 SECONDS High 96 - 152 [facility] Comment on above: Result Comment: Note new reference range as of 06/21/2018. Target ACT range will vary based on the patient population, clinical status, and surgical intervention occurring. Performed By: #### A CTP #### [facility] [address] [place] [address] ACT-HIGH RANGE 352 SECONDS High 96 - 152 [facility] Comment on above: Result Comment: Note new reference range as of 06/21/2018. Target ACT range will vary based on the patient population, clinical status, and surgical intervention occurring. Performed By: #### A CTP #### [facility] [address] [place] [address] ACT-HIGH RANGE 360 SECONDS High 96 - 152 [facility] Comment on above: Result Comment: Note new reference range as of 06/21/2018. Target ACT range will vary based on the patient population, clinical status, and surgical intervention occurring. Performed By: #### A CTP #### [facility] [address] [place] [address] ACT-HIGH RANGE 351 SECONDS High 96 - 152 [facility] Comment on above: Result Comment: Note new reference range as of 06/21/2018. Target ACT range will vary based on the patient population, clinical status, and surgical intervention occurring. Performed By: #### A CTP #### [facility] [address] [place] [address] ACT-HIGH RANGE 325 SECONDS High 96 - 152 [facility] Comment on above: Result Comment: Note new reference range as of 06/21/2018. Target ACT range will vary based on the patient population, clinical status, and surgical intervention occurring. Performed By: #### A CTP #### [facility] [address] [place] [address] ACT-HIGH RANGE 286 SECONDS High 96 - 152 [facility] Comment on above: Result Comment: Note new reference range as of 06/21/2018. Target ACT range will vary based on the patient population, clinical status, and surgical intervention occurring. Performed By: #### A CTP #### [facility] [address] [place] [address] ACT-HIGH RANGE 288 SECONDS High 96 - 152 [facility] Comment on above: Result Comment: Note new reference range as of 06/21/2018. Target ACT range will vary based on the patient population, clinical status, and surgical intervention occurring. Performed By: #### A CTP #### [facility] [address] [place] [address] Admission Risk Screen - Adul ton 05-13-2019 Admission Risk Screen - Adult Allergies: Allergies: Compazine: Unknown Patient Verification: New W ID Band Applied in my Departmentyes Patient Identity Verified Bypatient ID Band FULL Name, include Middle, spelling matches patient's ID used for verificationyes ID Band Matches Patient ID used for Verficationyes ID Band MRN Matches EMR MRNyes Advance Directive: Advance Directive/DNRyes Advance Directive typeLiving Will, Durable Power of Administrative Supervisor for Healthcare Living Will AvailabilityLiving Will not available now Living Will [id number] Durable Power of Administrative Supervisor AvailabilityDPOA not available now Durable Power of Administrative Supervisor [id number] Durable Power of Administrative Supervisor contact (name and number)pt doesn't know Falls Screen: Type of Assessmentadmission Moderate Risk Factorsnursing judgment (specify) High Risk Factorsnursing judgment (specify) Risk for Injury Associated with Fallcoagulation blood thinners (Coumadin, heparin gtt), coagulopathy Fall Risk Conclusionhigh falls risk with risk for associated injury Williamson Safety InterventionsWDL *orient to call system *instruct to call for assistance before getting out of bed *non-slip footwear when patient is out of bed *call silvestre in reach *personal items and telephone in reach *physically safe environment (no spills or clutter) *bed in lowest position with wheels locked *appropriate side rails in place *room/bathroom lighting operational, light cord in reach *appropriate signage on door Fall and Injury Risk Interventionssupervised toileting (mandatory for all high risk patients), exit (bed/chair) alarms (mandatory for all high risk patients), educate pt/family, monitor med side effects, consult Pharmacy, individualized toileting schedule, nursing judgement (specify), educate patient/family for risk for injury (fractures and bleeding) Family Violence Screen: Are you or have you been threatened or abused physically, emotionally, or sexually by anyoneno Do you feel UNSAFE going back to the place where you are livingno Clinical assessment: Are there any apparent signs of injuries/behaviors that could be related to abuse/neglectno Social Service Consult for abuse/neglect needed this visitno Functional Screen: Functional Screen: In the recent/past 2-4 weeks, patient or family have noticedno issues that require a speech/language consult at this time AM-PAC- Basic Mobility/Daily Activity: Patient baseline bedboundno Learning Assessment (Patient): Patient is Able to be Assessed for Learningyes Factors Influencing Readiness to Learnpain Factors that Impact Ability to Learnnone Devices/Methods Used to Communicatenone Learning Preferencesindividual instruction; verbal instruction Cultural Considerationsnone Developmental Considerationsnone Yarsanism Considerationsnone Learning Assessment (Other Learner): Other learner availableno Suicide/Depression Screen: During the past month, have you often been bothered by feeling down, depressed or hopelessno During the past month, have you often had little interest or pleasure in doing thingsno Have you had any thoughts of harming yourselfno Have you had any thoughts of harming anyone elseno Adult Nutrition Screen: Have you recently lost weight without tryingno Have you been eating poorly because of a decreased appetiteno Malnutrition Screening Tool Score0 Malnutrition Screening Tool RiskMST = 0 or 1 Not at risk. Eating well with little or no weight loss Nutrition Consult needed this visitno Can Patient Participate in Room Serviceyes Patient requires Paper Dishes/Plastic Utensilsno Pain Screen: Pain ScaleCognitively Impaired Pain Assessment Tool Pain Scale Educationteaching provided Current Pain Level0 = None Acceptable Pain Level0 = None Expression of Pain (nonverbal)none Chronic Painyes pt has RA Spiritual Screen: Are there any cultural, spiritual, advent practices/values/needs that are important for us to knowno CAGE: Is this an injured [place] a [place] Center [place]/[place]/ [place]): no Vaccinations: Vaccination - Influenza Vaccination Screen: Is it flu season (between and July 16)Yes Screening for identified contraindications to influenza vaccination patient/caregiver refusal Vaccination - Pneumonia Vaccination Screen: Patient has received a previous pneumonia vaccine:yes Stephon: Skin - Stephon Scale: Stephon: Sensory Perception (response to environment)(4) no impairment Stephon: Moisture (degree skin exposed to moisture)(4) rarely moist Stephon: Activity (ability to walk)(2) chairfast Stephon: Mobility (amount/control of body movement)(3) slightly limited Stephon: Nutrition (quality of food intake)(3) adequate Stephon: Friction and Shear(3) no apparent problem Stephon: Score19 Significant Indicatiors: Significant Indicators: Complete Pressure Injury: Pressure Injury Present on Admissionno Electronic Signatures: Galina Ventura ([facility]) (Signed 13-May-2019 08:20) Authored: Admission Risk Screens, Vaccinations, Stephon, Pressure Injury Last Updated: 13-May-2019 08:20 by Galina Ventura ([facility]) Normal [facility] History and Physicalon 05-13 History and Physical History of Present Illness: HPI: Arian Lane is a 59 y/o female referred by Dr Lynn for evaluation of AF. 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 Treatment of her AF includes AADs (Sotalol & Multaq - prolonged QT , DAUGHTER NOT QUITE SURE ABOUT THAT). Pt is asymptomatic while in AF. Pt is currently managed on Diltiazem and Coumadin. Pts INRs are managed by [facility] Cou[facility]. She is currently having her INR's checked monthly. Echo 04/2018: LV size and thickness are normal, EF 55-60%, LA mildly dilated, mild MR, & TR WE DISCUSSED THE RISKS AND BENEFITS OF AADs vs. CATHETER ABLATION FOR PERSISTENT AF. MRs. LANE AND HER DAUGHTER UNDERSTAND AND WANT TO PROCEED WITH ABLATION. Comorbidities: Comorbid Conditionsatrial fibrillation Type of Atrial FibrillationPermanent (chronic) Family History: Family History: reviewed and not pertinent to presenting problem Social History: Social History: Smoking Statusnever smoker Allergies: Compazine: Unknown Medications Prior to Admission: Outpatient Meds have not been reviewed. Review of Systems: Constitutional: NEGATIVE: Fever, Chills, Anorexia, Weight Loss, Malaise Eyes: NEGATIVE: Blurry Vision, Drainage, Diploplia, Redness, Vision Loss/ Change ENMT: NEGATIVE: Nasal Discharge, Nasal Congestion, Ear Pain, Mouth Pain, Throat Pain Respiratory: NEGATIVE: Dry Cough, Productive Cough, Hemoptysis, Wheezing, Shortness of Breath Cardiac: POSITIVE: Dyspnea on Exertion; NEGATIVE: Chest Pain, Orthopnea, Palpitations, Syncope Gastrointestinal: NEGATIVE: Nausea, Vomiting, Diarrhea, Constipation, Abdominal Pain Genitourinary: NEGATIVE: Discharge, Dysuria, Flank Pain, Frequency, Hematuria Musculoskeletal: NEGATIVE: Decreased ROM, Pain, Swelling, Stiffness, Weakness Endocrine: NEGATIVE: Heat Intolerance, Cold Intolerance, Sweat, Polyuria, Thirst Hematologic/Lymph: NEGATIVE: Anemia, Bruising, Easy Bleeding, Night Sweats, Petechiae Allergic/Immunologic: NEGATIVE: Anaphylaxis, Itchy/ Teary Eyes, Itching, Sneezing, Swelling Objective: Physical Exam: Constitutional: Awake, alert, oriented x3 Head/Neck: No JVD Respiratory/Thorax: CTA bilaterally Cardiovascular: RRR. Gastrointestinal: Soft. Nontender. No guarding or rebound. Musculoskeletal: Moves all extremities spontaneously. Extremities: Warm. No edema Neurological: Alert and oriented x 3. Assessment and Plan: Assessment: Arian Lane is a 59 y/o female referred by Dr Lynn for evaluation of AF. 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 Treatment of her AF includes AADs (Sotalol & Multaq - prolonged QT , DAUGHTER NOT QUITE SURE ABOUT THAT). Pt is asymptomatic while in AF. Pt is currently managed on Diltiazem and Coumadin. Pts INRs are managed by [facility] Cou[facility]. She is currently having her INR's checked monthly. Echo 04/2018: LV size and thickness are normal, EF 55-60%, LA mildly dilated, mild MR, & TR WE DISCUSSED THE RISKS AND BENEFITS OF AADs vs. CATHETER ABLATION FOR PERSISTENT AF. MRs. LANE AND HER DAUGHTER UNDERSTAND AND WANT TO PROCEED WITH ABLATION. Signatures/Attestation/Ce rtification: Note Completion: I am a: Resident/Fellow Attending AttestationI saw and evaluated the patient. I personally obtained the smith and critical portions of the history and physical exam or was physically present for smith and critical portions performed by the resident/fellow. I reviewed the resident/fellows documentation and discussed the patient with the resident/fellow. I agree with the resident/fellows medical decision making as documented in the note. I personally evaluated the patient [id number] Attending Provider Inpatient Certification StatementI certify this patients need for inpatient care based on the above documentation including; the order to admit as inpatient, the anticipated length of stay, diagnosis, problem list and plan of care, and discharge plan. Electronic Signatures: Jonathan Wall) (Signed 29-May-2019 07:48) Authored: Medications Prior to Admission, Signatures/Attestation/Ce rtification Co-Signer: History of Present Illness, Comorbidities, Family History, Social History, Allergies, Medications Prior to Admission, Review of Systems, Objective, Assessment and Plan, Signatures/Attestation/Ce rtification Ben Dubois (Fellow)) (Signed 13-May-2019 07:56) Authored: History of Present Illness, Comorbidities, Family History, Social History, Allergies, Medications Prior to Admission, Review of Systems, Objective, Assessment and Plan, Signatures/Attestation/Ce rtification Last Updated: 29-May-2019 07:48 by Jonathan Wall) [facility] Patient Profile - Adult v2on 05-13-2019 Patient Profile - Adult v2 Profile: Initial Info: How to be AddressedDonna Spoken Language PreferredEnglish Source of Informationpatient Are you currently using the Personal Electronic Health Record or BrightergyCAREno Are you interested in learning more about [facility] for the management of your healthnot at this time Stated Reason for Admissionprocedure Wants Family/Rep Notified of Admissionno Notify PCPdo not notify PCP Informed of Patient Visiting [place] Patient Belongingsremains with patient Patient Belongings Remaining with Patientclothing Medications Brought to Hospitalno General Health: Weight in kg86.1 kilogram(s) Weight in uyr354 pound(s) Height in feet5 feet Height in inches5 inch(es) Height in cm165.1 centimeter(s) BMI (kg/m2)31.587 square meter Weight Methodstated Scale Typebed Height Methodstated [facility] Based Care: How would you like to participate in your carept denies What is the number one concern for you during this hospitalizationpt denies What is the most important thing we can do to support you during this hospitalizationpt denies Is there anything we need to know to best care for youpt denies Substance: Current or Former Substance Use never: Cigarette/Tobacco, e-Cigarette/Vaping, Alcohol, Street Drugs Health Mgmt: Symptoms/Conditions Managed at Homecardiovascular; none Cardiovascular Managementmanaged Barriers to Managing Healthnone Relationship/Environ: Primary Source of Support/Comfortchild(nicole) Lives Withalone Living Arrangementshouse Resource/Environmental Concernsnone Anticipated Transition [place] [facility] Anticipated at Transitionnone Significant IndicatorsComplete Information Review: Allergies, Home Meds and Significant Events have been Reviewed and Verified with Patient/Familyyes ALLERGY, INTOLERANCE, ADVERSE EVENT: Allergies: Compazine: Drug, Unknown, Active Electronic Signatures: Galina Ventura) (Signed 13-May-2019 08:24) Authored: Profile, Additional Information Last Updated: 13-May-2019 08:24 by Galina Ventura) Normal [facility] Vital Signs Date Time Vital Sign Value Performing Clinician Facility 01-17-2023 14:30-0400 Body height 163.83 cm Ed Lawton Other [facility] Other 01-17-2023 14:30-0400 Body mass index (BMI) [Ratio] 23.32 kg/m2 Ed Lawton Other [facility] Other 01-17-2023 14:30-0400 Body temperature 98.2 [degF] Ed Lawton Other [facility] Other 01-17-2023 14:30-0400 Body weight 62.6 kg Ed Lawton Other [facility] Other 01-17-2023 14:30-0400 Diastolic blood pressure 60 mm[Hg] Ed Lawton Other [facility] Other 01-17-2023 14:30-0400 SaO2% (BldA) [Mass fraction] 97 % Ed Lawton Other [facility] Other 01-17-2023 14:30-0400 Systolic blood pressure 90 mm[Hg] Ed Lawton Other [facility] Other 08-16-2022 15:00-0400 Body height 163.83 cm Ed Lawton Other [facility] Other 08-16-2022 15:00-0400 Body mass index (BMI) [Ratio] 26.53 kg/m2 Ed Lawton Other [facility] Other 08-16-2022 15:00-0400 Body temperature 97.7 [degF] Ed Lawton Other [facility] Other 08-16-2022 15:00-0400 Body weight 71.22 kg Ed Jered Other [facility] Other 08-16-2022 15:00-0400 Diastolic blood pressure 60 mm[Hg] Ed Lawton Other [facility] Other 08-16-2022 15:00-0400 Respiratory rate 18 /min Ed Jered Other [facility] Other 08-16-2022 15:00-0400 SaO2% (BldA) [Mass fraction] 97 % Ed Jered Other [facility] Other 08-16-2022 15:00-0400 Systolic blood pressure 96 mm[Hg] Ed Lawton Other [facility] Other 07-26-2022 16:00-0400 Body height 163.83 cm Ed Jered Other [facility] Other 07-26-2022 16:00-0400 Body mass index (BMI) [Ratio] 26.26 kg/m2 Ed Lawton Other [facility] Other 07-26-2022 16:00-0400 Body temperature 97.4 [degF] Ed Lawton Other [facility] Other 07-26-2022 16:00-0400 Body weight 70.49 kg Ed Lawton Other [facility] Other 07-26-2022 16:00-0400 Diastolic blood pressure 74 mm[Hg] Ed Jered Other [facility] Other 07-26-2022 16:00-0400 Respiratory rate 18 /min Ed Curtismer Other [facility] Other 07-26-2022 16:00-0400 SaO2% (BldA) [Mass fraction] 95 % Ed Curtismer Other [facility] Other 07-26-2022 16:00-0400 Systolic blood pressure 104 mm[Hg] Ed Jered Other [facility] Other 03-15-2022 16:00-0500 Body height 163.83 cm Drew White Other [facility] Other 03-15-2022 16:00-0500 Body mass index (BMI) [Ratio] 30.37 kg/m2 Drew White Other [facility] Other 03-15-2022 16:00-0500 Body temperature 98.1 [degF] Drew White Other [facility] Other 03-15-2022 16:00-0500 Body weight 81.51 kg Drew White Other [facility] Other 03-15-2022 16:00-0500 Diastolic blood pressure 84 mm[Hg] Drew White Other [facility] Other 03-15-2022 16:00-0500 Respiratory rate 18 /min Drew White Other [facility] Other 03-15-2022 16:00-0500 SaO2% (BldA) [Mass fraction] 98 % Drew White Other [facility] Other 03-15-2022 16:00-0500 Systolic blood pressure 122 mm[Hg] Drew White Other [facility] Other 01-25-2022 16:00-0500 Body height 163.83 cm Ed Lawton Other [facility] Other 01-25-2022 16:00-0500 Body mass index (BMI) [Ratio] 31.21 kg/m2 Ed Lawton Other [facility] Other 01-25-2022 16:00-0500 Body weight 83.78 kg Ed Lawton Other [facility] Other 01-25-2022 16:00-0500 Diastolic blood pressure 84 mm[Hg] Ed Lawton Other [facility] Other 01-25-2022 16:00-0500 Respiratory rate 18 /min Ed Lawton Other [facility] Other 01-25-2022 16:00-0500 SaO2% (BldA) [Mass fraction] 97 % Ed Lawton Other [facility] Other 01-25-2022 16:00-0500 Systolic blood pressure 104 mm[Hg] Ed Lawton Other [facility] Other 07-25-2021 16:15-0400 Body height 163.83 cm Ed Lawton Other [facility] Other 07-25-2021 16:15-0400 Body mass index (BMI) [Ratio] 30.47 kg/m2 Ed Lawton Other [facility] Other 07-25-2021 16:15-0400 Body weight 81.78 kg Ed Lawton Other [facility] Other 07-25-2021 16:15-0400 Diastolic blood pressure 60 mm[Hg] Ed Lawton Other [facility] Other 07-25-2021 16:15-0400 Respiratory rate 18 /min Ed Lawton Other [facility] Other 07-25-2021 16:15-0400 SaO2% (BldA) [Mass fraction] 95 % Ed Lawton Other [facility] Other 07-25-2021 16:15-0400 Systolic blood pressure 120 mm[Hg] Ed Lawton Other [facility] Other 07-14-2021 11:29-0400 Diastolic blood pressure 60 mm[Hg] Ed Lawton Work Phone: [facility] DO Work Phone: 07-14-2021 11:29-0400 Systolic blood pressure 88 mm[Hg] Ed Lawton Work Phone: [facility] DO Work Phone: 07-14-2021 11:27-0400 Body height 162.56 cm Ed Lawton Work Phone: [facility] DO Work Phone: 07-14-2021 11:27-0400 Body mass index (BMI) [Ratio] 30.9 kg/m2 Ed Lawton Work Phone: [facility] [facility] DO Work Phone: 07-14-2021 11:27-0400 Body surface area Derived from formula 1.87 m2 Ed Lawton Work Phone: [facility] [facility] DO Work Phone: 07-14-2021 11:27-0400 Body weight 81.65 kg Ed Lawton Work Phone: [facility] [facility] DO Work Phone: 07-14-2021 11:27-0400 Heart rate 73 /min Ed Lawton Work Phone: [facility] [facility] DO Work Phone: 06-27-2021 10:31-0400 Body height 162.56 cm Ed Lawton Work Phone: [facility] [facility] DO Work Phone: 06-27-2021 10:31-0400 Body mass index (BMI) [Ratio] 30.9 kg/m2 Ed Lawton Work Phone: [facility] [facility] DO Work Phone: 06-27-2021 10:31-0400 Body surface area Derived from formula 1.87 m2 Ed Lawton Work Phone: [facility] [facility] DO Work Phone: 06-27-2021 10:31-0400 Body weight 81.65 kg Ed Lawton Work Phone: [facility] [facility] DO Work Phone: 06-27-2021 10:31-0400 Diastolic blood pressure 72 mm[Hg] Ed Lawton Work Phone: [facility] DO Work Phone: 06-27-2021 10:31-0400 Heart rate 67 /min Ed Lawton Work Phone: [facility] DO Work Phone: 06-27-2021 10:31-0400 Systolic blood pressure 98 mm[Hg] Ed Lawton Work Phone: [facility] [facility] DO Work Phone: 06-16-2021 00:00-0400 40 1 Ed Lawton Work Phone: [facility] [facility] DO Work Phone: Comment on above: [id number] 06-07-2021 14:54-0400 Diastolic blood pressure 78 mm[Hg] Ed Lawton Work Phone: [facility] DO Work Phone: 06-07-2021 14:54-0400 Systolic blood pressure 120 mm[Hg] Ed Lawton Work Phone: [facility] [facility] DO Work Phone: 06-07-2021 14:51-0400 Body height 162.56 cm Ed Lawton Work Phone: [facility] [facility] DO Work Phone: 06-07-2021 14:51-0400 Body mass index (BMI) [Ratio] 31.58 kg/m2 Ed Lawton Work Phone: [facility] [facility] DO Work Phone: 06-07-2021 14:51-0400 Body surface area Derived from formula 1.89 m2 Ed Lawton Work Phone: [facility] [facility] DO Work Phone: 06-07-2021 14:51-0400 Body weight 83.46 kg Ed Lawton Work Phone: [facility] [facility] DO Work Phone: 06-07-2021 14:51-0400 Diastolic blood pressure 80 mm[Hg] Ed Curtismer Work Phone: [facility] [facility] DO Work Phone: 06-07-2021 14:51-0400 Heart rate 56 /min Ed Lawton Work Phone: [facility] [facility] DO Work Phone: 06-07-2021 14:51-0400 Systolic blood pressure 126 mm[Hg] Ed Curtismer Work Phone: [facility] DO Work Phone: 05-04-2021 10:52-0500 75.8 1 Ed Nikhil CurtisJered Work Phone: [facility] [facility] DO Work Phone: Comment on above: [id number] 04-28-2021 11:43-0500 Diastolic blood pressure 80 mm[Hg] Ed Lawton Work Phone: [facility] DO Work Phone: 04-28-2021 11:43-0500 Systolic blood pressure 142 mm[Hg] Ed Lawton Work Phone: [facility] [facility] DO Work Phone: 04-28-2021 11:29-0500 Diastolic blood pressure 71 mm[Hg] Ed Curtismer Work Phone: [facility] [facility] DO Work Phone: 04-28-2021 11:29-0500 Systolic blood pressure 178 mm[Hg] Ed Lawton Work Phone: [facility] [facility] DO Work Phone: 04-28-2021 11:27-0500 Body height 157.48 cm Ed Nikhil Lawton Work Phone: [facility] [facility] DO Work Phone: 04-28-2021 11:27-0500 Body mass index (BMI) [Ratio] 34.75 kg/m2 Ed Nikhil CurtisJered Work Phone: [facility] [facility] DO Work Phone: 04-28-2021 11:27-0500 Body surface area Derived from formula 1.87 m2 Ed Nikhil Lawton Work Phone: [facility] [facility] DO Work Phone: 04-28-2021 11:27-0500 Body weight 86.18 kg Ed Nikhil Lawton Work Phone: [facility] [facility] DO Work Phone: 04-28-2021 11:27-0500 Diastolic blood pressure 99 mm[Hg] Ed Lawton Work Phone: [facility] [facility] DO Work Phone: 04-28-2021 11:27-0500 Heart rate 163 /min Ed Lawton Work Phone: [facility] [employer] [facility] DO Work Phone: 04-28-2021 11:27-0500 Systolic blood pressure 178 mm[Hg] Ed Lawton Work Phone: [facility] [facility] DO Work Phone: 01-26-2021 14:00-0500 Body height 163.83 cm Ed Lawton Other [facility] Other 01-26-2021 14:00-0500 Body mass index (BMI) [Ratio] 34.62 kg/m2 Ed Jered Other [facility] Other 01-26-2021 14:00-0500 Body temperature 98.8 [degF] Ed Jered Other [facility] Other 01-26-2021 14:00-0500 Body weight 92.94 kg Ed Jered Other [facility] Other 01-26-2021 14:00-0500 Diastolic blood pressure 88 mm[Hg] Ed Jered Other [facility] Other 01-26-2021 14:00-0500 Respiratory rate 18 /min Ed Lawton Other [facility] Other 01-26-2021 14:00-0500 SaO2% (BldA) [Mass fraction] 94 % Ed Jeerd Other [facility] Other 01-26-2021 14:00-0500 Systolic blood pressure 132 mm[Hg] Ed Lawton Other [facility] Other Encounters Encounter Date Encounter Type Care Provider Facility Start: 02-13-2023 ambulatory PHYSICIAN NO FAMILY Fac ility:[facility] Start: 02-02-2023 End: 02-02-2023 ambulatory Ed Lawton Other [facility] Other Start: 02-02-2023 Telephone encounter Ed [facility] Start: 01-17-2023 End: 01-17-2023 ambulatory Ed Lawton Other [facility] Other Start: 01-17-2023 Office outpatient vi sit 25 minutes Ed Lawton [facility] [place] Start: 10-06-2022 End: 10-06-2022 ambulatory Ed Lawton Facility:[facility] Start: 10-06-2022 End: 10-06-2022 ambulatory PHYSICIAN NO [facility] Work Phone: Start: 10-06-2022 End: 10-06-2022 Patient encounter procedure PHYSICIAN NO [facility] Work Phone: Start: 08-16-2022 End: 08-16-2022 ambulatory Ed Lawton Other [facility] Other Start: 08-16-2022 Office outpatient vi sit 15 minutes Ed Lawton [facility] [place] Start: 08-09-2022 End: 08-10-2022 ambulatory ED LA[facility]ON Facility:[facility] Start: 07-26-2022 End: 07-26-2022 ambulatory Ed Lawton Other [facility] Other Start: 07-26-2022 Encounter for genera l adult medical examination without abnormal findings dE Lawton [facility] [place] Start: 07-26-2022 Patient encounter procedure Ed Lawton [facility] [place] Start: 07-25-2022 Registered Recurring PHYSICIAN NO [facility] Start: 06-26-2022 End: 06-27-[address] ED SNYDER Facility:[facility] Start: 06-06-2022 End: 06-06-2022 ambulatory Ed Lawton Other [facility] Other Start: 06-06-2022 Telephone encounter Ed Duque [facility] [place] Start: 05-29-2022 Rx Renewal Ed Estevez er Work Phone: [facility] [facility] DO Work Phone: Start: 05-02-2022 End: 05-02-2022 ambulatory PHYSICIAN NO FAMILY Facility:[facility] Start: 05-02-2022 End: 05-02-2022 ambulatory PHYSICIAN NO [facility] Work Phone: Start: 05-02-2022 End: 05-02-2022 Patient encounter procedure PHYSICIAN NO [facility] [address] Work Phone: Start: 03-15-2022 End: 03-15-2022 Departed Referred PHYSICIAN NO [facility] [place] Work Phone: Start: 03-15-2022 End: 03-15-2022 ambulatory Drew White Other [facility] Other Start: 03-15-2022 Office outpatient vi sit 15 minutes Drew White [facility] [place] Start: 02-12-2022 End: 02-12-2022 ambulatory Ed Lawton Other [facility] Other Start: 02-12-2022 Telephone encounter Ed Duque [facility] [place] Start: 01-31-2022 End: 02-01-2022 ambulatory ED LAWTON Facility:[facility] Start: 01-25-2022 End: 01-25-2022 ambulatory Ed Lawton Other [facility] Other Start: 01-25-2022 Office outpatient vi sit 25 minutes Ed Lawton [facility] [place] Start: 09-29-2021 End: 09-30-[address] DOCTOR WORKMAN Facility:[facility] Start: 09-16-2021 End: 10-14-2021 ambulatory SHAIKH Tova CHILDRESS Facility:[facility] Start: 08-23-2021 End: 08-23-2021 ambulatory Ed Lawton Other [facility] Other Start: 08-23-2021 Telephone encounter Ed Duque [facility] [place] Start: 08-18-2021 Rx Renewal Ed Estevez er Work Phone: [facility] 250 DO Work Phone: Start: 07-28-2021 End: 07-28-2021 ambulatory Ed Lawton Other [facility] Other Start: 07-28-2021 Telephone encounter Ed Duque [facility] [place] Start: 07-25-2021 End: 07-25-2021 ambulatory Ed Lawton Other [facility] Other Start: 07-25-2021 Office outpatient vi sit 15 minutes Ed Lawton [facility] [place] Start: 07-25-2021 Patient encounter procedure Ed Lawton [facility] [place] Start: 07-21-2021 EKG, Provider: ELIJAH LANGLEY AIR POLLUTION INSPECTOR 1,[id number], Status: Pen, Time: 2:00 PM Ed Lawton Work Phone: [facility] [facility] DO Work Phone: Start: 07-15-2021 Rx Renewal Ed Estevez er Work Phone: [facility] [facility] DO Work Phone: Start: 07-14-2021 Office outpatient vi sit 40 minutes Ed Lawton Work Phone: [facility] [facility] DO Work Phone: Start: 07-08-2021 Rx Renewal Ed Estevez er Work Phone: [facility] [facility] DO Work Phone: Start: 06-27-2021 Patient encounter procedure Ed Lawton Work Phone: [facility] [facility] DO Work Phone: Start: 06-07-2021 Office outpatient vi sit 10 minutes Ed Lawton Work Phone: [facility] [facility] DO Work Phone: Start: 06-06-2021 End: 06-06-2021 ambulatory Ed Lawton Other [facility] Other Start: 06-06-2021 Telephone encounter Ed Duque [facility] Start: 06-01-2021 Rx Renewal Ed Estevez er Work Phone: [facility] [facility] DO Work Phone: Start: 04-28-2021 Office outpatient vi sit 25 minutes Ed Lawton Work Phone: [facility] [facility] DO Work Phone: Start: 04-12-2021 Rx Renewal Ed Estevez er Work Phone: [facility] 600 DO Work Phone: Start: 03-17-2021 Rx Renewal Ed Estevez er Work Phone: [facility] [facility] DO Work Phone: Start: 03-03-2021 Rx Renewal Ed Estevez er Work Phone: [facility] [facility] [place] Work Phone: Start: 01-26-2021 End: 01-26-2021 ambulatory Ed Jered Other [facility] Other Start: 01-26-2021 Office outpatient vi sit 25 minutes Ed Lawton [facility] Procedures Date Procedure Procedure Detail Performing Clinician Start: 03-15-2022 Urine culture PHYSICIAN NO FAMILY History of placement of stent in anterior descending branch of left coronary artery Ed Lawton Other History of placement of stent in anterior descending branch of left coronary artery 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 (LAD) artery PHYSICIAN NO FAMILY Plan of Treatment Date Care Activity Detail Author Start: 10-06-2022 Screening mammograph y of bilateral breasts MM screening mammo BI w/CAD [facility] Start: 11-08-2021 FUV, Provider: Marty Lynn, Status: Pen, Time: 11:10 AM FUV, Provider: Marty Lynn, Status: Pen, Time: 11:10 AM [facility] [facility] DO Work Phone: Start: 10-11-2021 ECHO, Provider: RAHUL MACIAS [facility] ULTRASOUND 01,[id number], Status: Pen, Time: 1:30 PM ECHO, Provider: KIMBERLI [facility] ULTRASOUND 01,[id number], Status: Pen, Time: 1:30 PM [facility] [facility] DO Work Phone: Start: 07-21-2021 EKG, Provider: ELIJAH LANGLEY AIR POLLUTION INSPECTOR 1,[id number], Status: Pen, Time: 2:00 PM EKG, Provider: ELIJAH LANGLEY AIR POLLUTION INSPECTOR 1,[id number], Status: Pen, Time: 2:00 PM [facility] [facility] DO Work Phone: Start: 07-14-2021 FUV, Provider: Marty Lynn, Status: Pen, Time: 11:10 AM FUV, Provider: Marty Lynn, Status: Pen, Time: 11:10 AM [facility] [facility] DO Work Phone: Start: 06-07-2021 NURSEVST, Provider: ELIJAH LANGLEY AIR POLLUTION INSPECTOR 1,[id number], Status: Pen, Time: 2:30 PM NURSEVST, Provider: ELIJAH LANGLEY AIR POLLUTION INSPECTOR 1,[id number], Status: Pen, Time: 2:30 PM [facility] [facility] DO Work Phone: Start: 03-22-2021 FUV, Provider: Marty Lynn, Status: Pen, Time: 1:45 PM FUV, Provider: Marty Lynn, Status: Pen, Time: 1:45 PM [place] [address] [place] Work Phone: Immunizations Immunization Date Immunization Notes Care Provider Clayton barnes 02-25-2021 Pfizer-BioNTech COVI D-19 Vacc 30 MCG/0.3ML Intramuscular Suspension Ed Lawton Work Phone: [facility] 600 DO Work Phone: 06-21-2020 Pfizer-BioNTech COVI D-19 Vacc 30 MCG/0.3ML Intramuscular Suspension Edpretty Lawton Work Phone: [facility] DO Work Phone: 05-29-2020 Pfizer-BioNTech COVI D-19 Vacc 30 MCG/0.3ML Intramuscular Suspension Ed Lawton Work Phone: [facility] DO Work Phone: 01-02-2019 pneumococcal conjuga te vaccine, 13 valent Edpretty Lawton Work Phone: [facility] 600 DO Work Phone: Payers Date Payer Category Payer Medicare [id number] 2022 Self-pay [id number] 1960 Medicare [id number] 2. [id number] 1960 Unknown [id number] 2.16.84 [id number] 1960 Unknown [id number] 2.16.84 [id number] 1960 Unknown [id number] 2.16.84 [id number] 1960 Unknown [id number] 2.16.84 [id number] 1960 Unknown [id number] 2.16.84 [id number] 1960 Unknown [id number] 2.16.84 [id number] Medicaid [employer] [id number] Unknown Unknown HCAP/HFA/FAP Active [id number] Unknown [id number] 2.16.8 [id number] Unknown [id number] 2.16.8 [id number] Unknown [id number] 2.16.8 [id number] Social History Date Type Detail Facility Daily caffeine consumption Daily caffeine consumption -[facility] [employer] DO Work Phone: Comment on above: 2 CUPS OF COFFEE IN AM; Sex Assigned At Sex Assigned At Bir th [facility] Other Start: 06-16-2021 End: 06-16-2021 Tobacco smoking status NHIS Smoker (finding) [facility] Start: 1960 Sex Assigned At Female F [facility] Medical Equipment Procedure Code Equipment Code Equipment Origin al Text Equipment Identifier Dates CL STENT RAVEN 3.0 X 12 FDA Start: 05-10-2018 CL STENT RAVEN 3.0 X 12 FDA Start: 05-10-2018 Clinical Notes 06-06-2021 to 02-02-2023 Note Date & Type Note Facility 02-02-2023 Evaluation note Encounter Date Diagnosis Assessment Notes Jan, BMI 38.0-38.9,adult (ICD-10 - Z68.38) Jan, Chronic obstructive pulmonary disease, unspecified COPD type (ICD-10 - J44.9) Jan, Rheumatoid arthritis of hand, unspecified laterality, unspecified rheumatoid factor presence (ICD-10 - M06.9) [facility] Other 11-01-2023 Evaluation note* Encounter Date Diagnosis Assessment Notes Treatment Notes Treatment Clinical Notes Jan, Essential hypertension (ICD-10 - I10) Due to patient being hypotensive which is likely contributing to a lot of her symptoms of feeling weak and tired she will have her metoprolol extended release 25 mg cut in half. She is to continue monitoring her blood pressure and let me know if it continues to run low. Jan, Acquired hypothyroidism (ICD-10 - E03.9) We will check thyroid to make sure she is well controlled on levothyroxine 88 mcg. Jan, GERD (gastroesophageal reflux disease) (ICD-10 - K21.9) Continue with Protonix 40 mg daily as it is working well for her reflux. Jan, Chronic systolic congestive heart failure (ICD-10 - I50.22) Patient is to check with cardiology to discuss decreasing Entresto to also help with her hypotension. Jan, Medication monitoring encounter (ICD-10 - Z51.81) Jan, Chronic fatigue (ICD-10 - R53.82) We will check labs of B12 and vitamin D to assess if these are low and contributing to her fatigue. [facility] Other 05-31-2023 Evaluation note* Encounter Date Diagnosis Assessment Notes Treatment Notes Treatment Clinical Notes July, Nausea (ICD-10 - R11.0) Nausea has resolved at this time. She hasn't needed the Zofran past 2-3 days from her previous visit. July, Stomach pain (ICD-10 - R10.9) Stomach pain has improved with decrease the potassium. She will continue on only once daily potassium as she is having less stomach pains and her electrolytes are normal on labs. July, Hypotension due to drugs (ICD-10 - I95.2) Patient instructed to cut the Lasix in half to 20 mg daily. She is to track her BP over the next 2 weeks and then let me know. She is also to monitor her weight and if it goes up quickly she is to call. Also call if there is swelling. July, Acute on chronic systolic congestive heart failure (ICD-10 - I50.23) [facility] Other 05-10-2023 Evaluation note* Encounter Date Diagnosis Assessment Notes Treatment Notes Treatment Clinical Notes July, Essential hypertension (ICD-10 - I10) July, Well adult exam (ICD-10 - Z00.00) 62-year-old female who is doing well with her chronic medical conditions however she is having some increased nausea and decreased appetite as well as stomach pain. She thinks it might be related to the potassium tablets though there is concerned that she is having a stomach ulcer again as she has had this in the past but she has no symptoms currently of melena or hematochezia. We will decrease potassium to once daily to see if this improves her symptoms and place her on Zofran so we can decrease her nausea so she can eat and drink properly. She is due for screening mammogram and this was ordered for her. We will recheck a metabolic panel in a couple weeks and see her back in the office in 3 weeks. July, Acquired hypothyroidism (ICD-10 - E03.9) July, GERD (gastroesophageal reflux disease) (ICD-10 - K21.9) July, Anxiety (ICD-10 - F41.9) July, Paroxysmal atrial fibrillation (ICD-10 - I48.0) July, Chronic systolic congestive heart failure (ICD-10 - I50.22) July, Encounter for screening mammogram for malignant neoplasm of breast (ICD-10 - Z12.31) July, Nausea (ICD-10 - R11.0) July, Stomach pain (ICD-10 - R10.9) [facility] Other 03-21-2023 Evaluation note* Encounter Date Diagnosis Assessment Notes Treatment Notes Treatment Clinical Notes May, Acute on chronic systolic congestive heart failure (ICD-10 - I50.23) May, Essential hypertension (ICD-10 - I10) May, Acquired hypothyroidism (ICD-10 - E03.9) May, Medication monitorin g encounter (ICD-10 - Z51.81) May, Encounter for screening for cardiovascular disorders (ICD-10 - Z13.6) [facility] Other 12-28-2022 Evaluation note* Encounter Date Diagnosis Assessment Notes Treatment Notes Treatment Clinical Notes Feb, Burning with urination (ICD-10 - R30.0) Feb, Dysuria (ICD-10 - R30.0) 62 y.o. female presents to the office today with symptoms of dysuria and painful urination. Urinalysis was performed in the office today and does show positive WBC, small amount of blood and for this urine will be sent for culture. Advised to start macrobid 100mg orally BID x 7 days. Advised patient to take antibiotic as prescribed, take with food, complete entire course of antibiotic therapy even if feeling better. Advised patient that the medication Jadiance does cause excretion of glucose in her urine and this can increase risk of UTIs. Advised on good hygiene practices. Allergies and recent antibiotic use were reviewed with patient. Advised patient that urine will be sent for culture today and we will call with results in 2-5 days. Patient instructed to increase oral hydration. Advised patient that symptoms should improve in the next 48 hours. Advised that if symptoms persist or experiences flank pain, fever, chills, N/V or with other concerns, then to call back immediately. Patient acknowledges understanding and agrees to treatment. [facility] Other 11-09-2022 Evaluation note* Encounter Date Diagnosis Assessment Notes Treatment Notes Treatment Clinical Notes Jan, Rheumatoid arthritis of hand, unspecified laterality, unspecified rheumatoid factor presence (ICD-10 - M06.9) Patient has a history of rheumatoid and was on medication for this but went off of it a year ago and now is having a lot of increased joint pain. We will refer her back to rheumatology for treatment. Jan, Chronic systolic congestive heart failure (ICD-10 - I50.22) Continue following with cardiology we will check magnesium levels due to her decreasing her magnesium and feeling like she is having more muscle aches. Continue with Jardiance and Entresto. Jan, Acquired hypothyroidism (ICD-10 - E03.9) Patient has not had her thyroid checked in a while and given her complaints of increased fatigue it is certainly possible her thyroid is not properly corrected. We will contact her with the results of the testing. Jan, Medication monitorin g encounter (ICD-10 - Z51.81) Jan, Paroxysmal atrial fibrillation (ICD-10 - I48.0) Continue on metoprolol and Eliquis and follow with cardiology for this issue. [facility] Other 05-09-2022 Evaluation note* Encounter Date Diagnosis Assessment Notes Treatment Notes Treatment Clinical Notes July, Medicare annual wellness visit, initial (ICD-10 - Z00.00) Mrs. Lane seen today doing fairly well. She states disatisfaction with current cardiologists in regards to recent admission to hospital. Discussed with her the need to stay on her Lasix 40mg. She is very satisfied with this decsion and will refer to new early years teacher for further evaluauton and continued care. Her BP is being well managed on Carvedilol 3.125, Amiodarone 200mg, and Lasix 40mg. At this visit she does not exhibit any signs of BLE edema, CHF exacerbation. She acknowledges treatment plan contiuing Lasix and to call if with increased signs of fluid overload. TSH level is 1.767 and is being well managed with Levothyroxine 88mcg. July, Acute on chronic systolic congestive heart failure (ICD-10 - I50.23) Lasix 40 mg daily July, Essential hypertension (ICD-10 - I10) BP is well controlled on current medications and no adjustments since the hospital stay. July, Paroxysmal atrial fibrillation (ICD-10 - I48.0) Heart is regular on todays exam. July, Acquired hypothyroidism (ICD-10 - E03.9) [facility] Other 03-21-2022 Evaluation note* Encounter Date Diagnosis Assessment Notes Treatment Notes Treatment Clinical Notes May, Acquired hypothyroidism (ICD-10 - E03.9) [facility] Other Evaluation noteNort pa[facility] Other Evaluation noteNo InformationNort paOnde Other Evaluation noteNo assessment information available [facility] Work Phone: History general Narrative - ReportedNort paOnde Other History general Narrative - Reported* Type Description Date Medical History hypothyroidism Medical History HTN Medical History osteoporosis Medical History asthma Medical History GERD Medical History hyperlipdemia Medical History dysphagia Medical History rheumatoid arthritis Medical History anxiety Medical History copd Medical History A-FIB Surgical History BRONCHIAL CLEFT REPAIR 1976 Hospitalization History Child x2 Hospitalization History Sepsis/Rhabdo 08/2018 [facility] Other History general Narrative - Reported* Type Description Date Medical History hypothyroidism Medical History HTN Medical History osteoporosis Medical History asthma Medical History GERD Medical History hyperlipdemia Medical History dysphagia Medical History rheumatoid arthritis Medical History anxiety Medical History copd Medical History A-FIB Surgical History BRONCHIAL CLEFT REPAIR 1976 Hospitalization History Child x2 Hospitalization History Sepsis/Rhabdo 08/2018 Hospitalization History Heart failure 05/2021 [facility] Other Summary Purpose Family History No Family History Records FoundUnknown Family Member Name Dates Details No pertinent family history: Mother, Father, Sister, Brother(V49.89, Z78.9) Status:Active Unknown Family Member Name Dates Details No pertinent family history: Mother, Father, Sister, Brother(V49.89, Z78.9) Status:Active Unknown Family Member Name Dates Details No pertinent family history: Mother, Father, Sister, Brother(V49.89, Z78.9) Status:Active Unknown Family Member Name Dates Details No pertinent family history: Mother, Father, Sister, Brother(V49.89, Z78.9) Status:Active Unknown Family Member Name Dates Details No pertinent family history: Mother, Father, Sister, Brother(V49.89, Z78.9) Status:Active Unknown Family Member Name Dates Details No pertinent family history: Mother, Father, Sister, Brother(V49.89, Z78.9) Status:Active Unknown Family Member Name Dates Details No pertinent family history: Mother, Father, Sister, Brother(V49.89, Z78.9) Status:Active Unknown Family Member Name Dates Details No pertinent family history: Mother, Father, Sister, Brother(V49.89, Z78.9) Status:Active Unknown Family Member Name Dates Details No pertinent family history: Mother, Father, Sister, Brother(V49.89, Z78.9) Status:Active Unknown Family Member Name Dates Details No pertinent family history: Mother, Father, Sister, Brother(V49.89, Z78.9) Status:Active Unknown Family Member Name Dates Details No pertinent family history: Mother, Father, Sister, Brother(V49.89, Z78.9) Status:Active Unknown Family Member Name Dates Details No pertinent family history: Mother, Father, Sister, Brother(V49.89, Z78.9) Status:Active Advance Directives No Advanced Directives Records Found Advance Directive Response Recorded Date/ Time Advance Directives Yes September 10 1:10pm Advance Directive Response Recorded Date/ Time Advance Directives Yes September 10 2:10pm Procedure Findings Note Pre-procedure Verification a nd Time Out: Pre-Procedure Verification and Time Out: Procedure Locationprocedure area HUDDLE - Pre-procedure Verificationcompleted TIME OUT - Final Verificationcompleted DEBRIEFcompleted General Information: Post-Procedure Diagnosis: Atrial Fibrillation, Atypical Atrial Flutter Procedure Name: Atrial Fibrillation and Atypical Atrial Flutter Ablation Findings: See Below Procedure performed by: Dr. Jonathan Wall Human Resources Representative(s): Dr. Ben Dubois Estimated Blood Loss (mL): 10 Specimen: no Procedure Details: Procedure Details: The indications, risks, benefits, alternatives, and details of the procedure were explained to the patient who expressed understanding of the risks including but are not limited to: pain, bleeding, and infection for which the risk is less than 1%. More serious risks, including cardiac perforation and tamponade, vascular trauma, pulmonary vein stenosis, atrio-esophageal fistula, diaphragmatic paralysis, life-threatening arrhythmia, need for (more content not included)... Chief Complaint * ARIAN LANE is being seen for a 6 month follow-up of. * Patient is in the office for follow-up for the problems noted below. Since her last visit she has not had any major breakthrough atrial fibrillation. She is on sotalol 60 mg twice daily and Coumadin therapy. She continues to smoke half pack of cigarettes per day something I always discouraged her from doing. She has no symptoms suggestive angina pectoris or heart failure. Her weight is still working progress. Her examination is unremarkable for obesity and mild hypertension. EKG confirmed normal sinus rhythm and normal QTc interval. * Assessment/recommendations: * 1 coronary artery disease single vessel status post plasty to the LAD in April 2018. She will remain on Plavix along with statin therapy, there has been no recent angina pectoris patient remains at risk for recurrent disease due to active tobacco abuse, this was made clear to her * 2 paroxysmal atrial fibrillation status post radiofrequency ablation at [facility] with recurrent atrial fibrillation, presently on sotalol 60 mg twice daily. ECG confirmed normal sinus rhythm today. Patient remains on Coumadin * 3 hyperlipidemia on statin therapy , lipid profile is due and was requested * 4 obesity encouraged more weight control with diet and exercise * 5 hypertension on medical therapy not completely under control, will increase lisinopril up to 5 mgdaily and check her blood pressure readings in few weeks * 6 rheumatoid arthritis on methotrexate and prednisone followed by rheumatology * 7 high-risk medication with warfarin and sotalol with no complications. * 8 tobacco abuse, was counseled again on tobacco cessation * ARIAN LANE is being seen for hypertension and BP Check. * Patient is in the office for hypertension management since lisinopril 5 mg daily was added her blood pressure has become under control. She does not require diuretic therapy and potassium which I will discontinue. Patient is here for EKG ordred by Dr. Marty Lynn MD due to SSS diganosis. Dr. Kwaku Coronado MD in suite. Pt is here due to prolonged QT Interval. Medications updated verbally and patient did not bring in list or bottles. Patient has no cardiac complaints. EKG reviewed by Claribel Alvarado RN prior to discharge. To Dr. Marty Lynn MD for review.* ARIAN LANE is being seen for follow-up of a hospitalization for. # [place] [facility] * Patient is in the office for follow-up to recent admission to the hospital with pulmonary edema caused by left ventricular systolic and diastolic dysfunction with atrial fibrillation RVR leading to the decompensation. She had cardiac catheterization which revealed patent stent and no coronary diseas e otherwise. Ejection fraction 40%. The patient had problem with prolongation of QTc interval whichwas mostly attributed to antiarrhythmic therapy and antipsychotic medications. She left the hospital in sinus rhythm with no antiarrhythmic therapy but has been anticoagulated. EKG subsequently revealed normalization of QTc interval and today's EKG confirmed the same findings. She is in sinus rhythm at the present time. Her blood pressure is under control. We initiated therapy with Entresto in the hospital which so far has been tolerated. She currently has no evidence of volume overload. * Assessment/recommendations: * 1 coronary artery disease single vessel status post plasty to the LAD in April 2018. Cardiac catheterization June 2021 revealed no indication of recurrent disease. Ejection fraction though was down to 40% * 2 paroxysmal atrial fibrillation status post radiofrequency ablation at [facility], patient relapsed while she was on sotalol recently leading to pulmonary edema. Due to QTC prolongation andLV systolic dysfunction sotalol was discontinued and the patient not tolerate dofetilide or amiodaro ne in the hospital because of QTC prolongation. She is currently in sinus rhythm with normal QTc interval since her antipsychotic medication were eliminated and will resume amiodarone at 200 mg dailyand monitor QTc interval. We will initiate amiodarone follow-up. ECG in 1 week will be scheduled. We will continue anticoagulation. * 3 hyperlipidemia on statin therapy , LDL will be followed closely. * 4 obesity encouraged more weight control with diet and exercise * 5 hypertension on medical therapy, currently under control we will continue small dose Coreg and Entresto and will titrate if tolerated down the road. * 6 rheumatoid arthritis followed by rheumatology * 7 high-risk medication with warfarin and amiodarone, will monitor both * 8 left ventricular systolic dysfunction, ejection fraction 40% June 2021. Currently on medium doseEntresto and small dose of Coreg which down the road could be uptitrated if tolerated and possible introduction of Aldactone. * ARIAN LANE is being seen for follow-up of a hospitalization for. # week[place] [facility] * Patient is in the office for follow-up to recent admission to the hospital with pulmonary edema caused by left ventricular systolic and diastolic dysfunction with atrial fibrillation RVR leading to the decompensation. She had cardiac catheterization which revealed patent stent and no coronary diseas e otherwise. Ejection fraction 40%. The patient had problem with prolongation of QTc interval whichwas mostly attributed to antiarrhythmic therapy and antipsychotic medications. She left the hospital in sinus rhythm with no antiarrhythmic therapy but has been anticoagulated. EKG subsequently revealed normalization of QTc interval and today's EKG confirmed the same findings. She is in sinus rhythm at the present time. Her blood pressure is under control. We initiated therapy with Entresto in the hospital which so far has been tolerated. She currently has no evidence of volume overload. * Assessment/recommendations: * 1 coronary artery disease single vessel status post plasty to the LAD in April 2018. Cardiac catheterization June 2021 revealed no indication of recurrent disease. Ejection fraction though was down to 40% * 2 paroxysmal atrial fibrillation status post radiofrequency ablation at [facility], patient relapsed while she was on sotalol recently leading to pulmonary edema. Due to QTC prolongation andLV systolic dysfunction sotalol was discontinued and the patient not tolerate dofetilide or amiodaro ne in the hospital because of QTC prolongation. She is currently in sinus rhythm with normal QTc interval since her antipsychotic medication were eliminated and will resume amiodarone at 200 mg dailyand monitor QTc interval. We will initiate amiodarone follow-up. ECG in 1 week will be scheduled. We will continue anticoagulation. * 3 hyperlipidemia on statin therapy , LDL will be followed closely. * 4 obesity encouraged more weight control with diet and exercise * 5 hypertension on medical therapy, currently under control we will continue small dose Coreg and Entresto and will titrate if tolerated down the road. * 6 rheumatoid arthritis followed by rheumatology * 7 high-risk medication with warfarin and amiodarone, will monitor both * 8 left ventricular systolic dysfunction, ejection fraction 40% June 2021. Currently on medium doseEntresto and small dose of Coreg which down the road could be uptitrated if tolerated and possible introduction of Aldactone. * ARIAN LANE is being seen for follow-up of a hospitalization for. # week/ [facility] * Patient is in the office for follow-up to recent admission to the hospital with pulmonary edema caused by left ventricular systolic and diastolic dysfunction with atrial fibrillation RVR leading to the decompensation. She had cardiac catheterization which revealed patent stent and no coronary diseas e otherwise. Ejection fraction 40%. The patient had problem with prolongation of QTc interval whichwas mostly attributed to antiarrhythmic therapy and antipsychotic medications. She left the hospital in sinus rhythm with no antiarrhythmic therapy but has been anticoagulated. EKG subsequently revealed normalization of QTc interval and today's EKG confirmed the same findings. She is in sinus rhythm at the present time. Her blood pressure is under control. We initiated therapy with Entresto in the hospital which so far has been tolerated. She currently has no evidence of volume overload. * Assessment/recommendations: * 1 coronary artery disease single vessel status post plasty to the LAD in April 2018. Cardiac catheterization June 2021 revealed no indication of recurrent disease. Ejection fraction though was down to 40% * 2 paroxysmal atrial fibrillation status post radiofrequency ablation at [facility], patient relapsed while she was on sotalol recently leading to pulmonary edema. Due to QTC prolongation andLV systolic dysfunction sotalol was discontinued and the patient not tolerate dofetilide or amiodaro ne in the hospital because of QTC prolongation. She is currently in sinus rhythm with normal QTc interval since her antipsychotic medication were eliminated and will resume amiodarone at 200 mg dailyand monitor QTc interval. We will initiate amiodarone follow-up. ECG in 1 week will be scheduled. We will continue anticoagulation. * 3 hyperlipidemia on statin therapy , LDL will be followed closely. * 4 obesity encouraged more weight control with diet and exercise * 5 hypertension on medical therapy, currently under control we will continue small dose Coreg and Entresto and will titrate if tolerated down the road. * 6 rheumatoid arthritis followed by rheumatology * 7 high-risk medication with warfarin and amiodarone, will monitor both * 8 left ventricular systolic dysfunction, ejection fraction 40% June 2021. Currently on medium doseEntresto and small dose of Coreg which down the road could be uptitrated if tolerated and possible introduction of Aldactone. Reason for Referral Reason Former patient of Dr Niraj Snyder, wants to re-establish Diagnosis 1 Rheumatoid arthritis of hand, unspecified laterality, unspecified rheumatoid factor presence (M06.9) Referral Organization [facility] Referring Provider First Name Ed Referring Provider Last Name Jered Referring Provider Specialty Family Prac ashley Referred Organization [facility] Referred Address [address] [facility] [place] Referred Provider Specialty Rheumatology Referral Priority Routine Reason [facility] in [place] Diagnosis 1 Acute on chronic sys tolic congestive heart failure (I50.23) Diagnosis 2 Paroxysmal atrial fi brillation (I48.0) Diagnosis 3 Coronary artery dise ase involving [place] coronary artery of [place] heart without angina pectoris (I25.10) Referral Organization [facility] Referring Provider First Name Ed Referring Provider Last Name Jered Referring Provider Specialty Family Prac ashley Referred Organization [facility] Referred Address [address] Referred Provider Specialty Cardiology Referral Priority Routine General Notes Sophie Christie 12/2021 08:21:44 AM > referral received waiting for notes to be locked Clinical Notes P- [phone] [id number] [phone] F - [phone] Chief Complaint and Reason for Visit Chief Complaint R30.0 Chief Complaint BH Z12.31 Additional Source Comments INFORMATION SOURCE (unrecogn ized section and content) DATE CREATED AUTHOR 05/29/2019 [facility] DATE CREATED AUTHOR AUTHOR'S ORGANIZ ATION 06/09/2021 [facility] DATE CREATED AUTHOR AUTHOR'S ORGANIZ ATION 08/25/2022 [facility] DATE CREATED AUTHOR AUTHOR'S ORGANIZ ATION 04/14/2023 [facility] REASON FOR VISIT (unrecogniz ed section and content) refillrefill6 month Follow u p for [facility] AWVdischarge6 month Follow upNo Informationpossible UTIrefillAnnual3 wk f/u5 MONTH FOLLOW UPfailed diagnosis code Care Teams (unrecognized sec tion and content) Team Status: Inactive Member Role Status Dates Drew White APRN Attending Provider Active PHYSICIAN NO FAMILY Primary Care Provider Active Team Status: Inactive Member Role Status Dates PHYSICIAN NO FAMILY Primary Care Provider Active Osman Snyder MD Attending Provider Active Team Status: Active Member Role Status Dates PHYSICIAN NO FAMILY Primary Care Provider Active Team Status: Active Member Role Status Dates Ed Lawton DO Primary Care Provider Active Team Status: Active Member Role Status Dates PHYSICIAN NO FAMILY Primary Care Provider Active Mo Mccord MD Attending Provider Active Team Status: Inactive Member Role Status Dates Ed Lawton DO Primary Care Provider, Attending Provider Active Goals (unrecognized section and content) Goals may be documented in a n alternate section FOR RECORDS PERTAINING TO PATIENTS WHO ARE OR HAVE BEEN ENROLLED IN A CHEMICAL DEPENDENCY/SUBSTANCEABUSE PROGRAM, SOME INFORMATION MAY BE OMITTED. This clinical summary was aggregated from multiple sources. Caution should be exercised in using it in the provision of clinical care. This summary normalizes information from multiple sources, and as a consequence, information in this document may materially change the coding, format and clinical context of patient data. In addition, data may be omitted in some cases. CLINICAL DECISIONS SHOULD BE BASED ON THE PRIMARY CLINICAL RECORDS. [facility]. provides no warranty or guarantee of the accuracy or completeness of information in this document.
[2023-04-25 13:33] LABS: Magnesium 1.7 mg/dL (1.8-2.4)
== END 2023-04-25 12:23 | disposition home or self-care (01) ==
LOC: LAB 12:23
DX: I48.11 Longstanding persistent atrial fibrillation (principal)
CPT/HCPCS: 36415; 83735

== ENCOUNTER 2023-05-16 12:58 | Outpatient (OUT) | payer MEDICARE, SELFPAY ==
--- NOTE | 2023-05-16 13:00 | RT_ITS ---
[facility] Test Date: 2023-05-16 Pat Name: ARIAN LANE Department: Room: - Gender: Female Surg Rn: Nay Farah RRT : 1960 Requested By: [id number] Order Number: [id number] Reading MD: Chang Peres Interpretive Statements Pulmonary function testing was completed according to ATS criteria. Findings were considered accurate and reproducible. Both pre- and post-bronchodilator values utilized for spirometry. Spirometry (based on pre-bronchodilator values): -FEV1/FVC: Reduced @ 70% -FEV1: Normal @ 103% -FVC: Normal @ 114% -There is no significant bronchodilator response. Lung volumes by plethysmography: -RV: Increased @ 131% -TLC: Increased @ 122% Diffusion capacity: -DLCO: Mild reduction @ 69% when corrected for Hb 13.2g/dL Flow-volume loop: -Mild obstructive pattern Impressions: -Spirometry suggests mild obstruction without a bronchodilator response. An elevated RV and TLC suggest air trapping and hyperinflation respectively. There is a mildly reduced diffusion capacity. 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 Clinical correlation required. Electronically Signed On 05-16-2023 16:40:27 EST by Chang Peres
[2023-05-16 13:10] LABS: Basophils Percent Auto 0.3 % (0.2-2.0); Eosinophils Absolute Auto 0.1 10^3/uL (0.0-0.7); Eosinophils Percent Auto 1.5 % (0.9-7.0); Hematocrit 41.2 % (36.0-48.0); Hemoglobin 13.2 g/dL (12.0-16.0); Immature Granulocytes Abs Auto 0.01 10^3/uL (0.00-0.03); Immature Granulocytes Pct Auto 0.2 % (0.0-0.5); Lymphocytes Absolute Auto 2.2 10^3/uL (1.2-3.8); Lymphocytes Percent Auto 36.4 % (20.5-60.0); Mean Corpuscular Hemoglobin 28.6 pg (26.7-34.0); Mean Corpuscular Volume 89.4 fL (81.0-99.0); Mean Platelet Volume 10.7 fL (9.5-13.5); Monocytes Absolute Auto 0.5 10^3/uL (0.3-0.8); Monocytes Percent Auto 7.8 % (1.7-12.0); Neutrophils Absolute Auto 3.3 10^3/uL (1.4-6.5); Neutrophils Percent Auto 53.8 % (43.0-75.0); Platelet Count 296 10^3/uL (150-450); Red Blood Count 4.61 10^6/uL (4.20-5.40); Red Cell Distribution Width 13.8 % (11.0-15.0); White Blood Count 6.1 10^3/uL (4.0-11.0)
[2023-05-16 13:53] LABS: Alanine Aminotransferase 16 U/L (14-59); Albumin Globulin Ratio 0.6; Alkaline Phosphatase 97 U/L (46-116); Anion Gap 9.9; Aspartate Amino Transferase 83 U/L (15-37); BUN Creatinine Ratio 7.2; Bilirubin Total 0.4 mg/dL (0.2-1.0); Calcium 8.7 mg/dL (8.5-10.1); Chloride 99 mmol/L (98-107); Estimated GFR (African America >60 (>=60); Estimated GFR (Non-African Ame >60 (>=60); Globulin 4.7 g/dL; Glucose 88 mg/dL (74-106); Sodium 140 mmol/L (136-145); TSH W/ REFLEX FT4 0.571 uIU/mL (0.358-3.740); Total Protein 7.7 g/dL (6.4-8.2)
[2023-05-16] MEDS: ALBUTEROL SULFATE 2.5 MG/3 ML VIAL NEB IH (14:02)
[2023-05-16 16:23] LABS: Potassium 2.9 mmol/L (3.5-5.1)
== END 2023-05-16 12:59 | disposition home or self-care (01) ==
DX: E03.9 Hypothyroidism, unspecified (principal); R63.4 Abnormal weight loss; Z51.81 Encounter for therapeutic drug level monitoring; Z72.0 Tobacco use; R06.00 Dyspnea, unspecified
CPT/HCPCS: 36415; 80053; 84443; 85025; 94060; 94726; 94729; 99406

== ENCOUNTER 2023-11-22 15:02 | Outpatient (OUT) | payer MEDICARE, SELFPAY ==
--- OUTSIDE RECORDS SUMMARY | 2023-11-22 15:23 | XMS_ITS | CCD ---
Author Organization [facility] CliniSyal Care Team Providers Care Transportation Solutions Manager Name Role Phone Ed Lawton N Unavailable Unavailable Unavailable Jered, Ed Unavailable Jered, Ed Unavailable LEIGHA White Attending Provider [phone] NO FAMILY, PHYSICIAN Primary Care Provider Unava MD Osman Jiménez Attending Provider Drew White Unavailable MISC, DR RICHTER Admitting Unavailable JERED, ED Primary Care Unavailable MISC, DR RICHTER Attending Unavailable MISC, DR RICHTER Consulting Unavailable JERED, ED Admitting Unavailable JERED, ED Primary Care Unavailable JERED, ED Attending Unavailable JERED, ED Consulting Unavailable CLAUDIO, DR WARD Admitting Unavailable ZIEBER, DR JANINE Zhao Consulting Unavailable JERED, ED Primary Care Unavailable SNYDER, DR WARD Attending Unavailable ROSETTA MANNING Consulting Unavailable SNYDER, DR WARD Consulting Unavailable SHAIKH Tova CHILDRESS Admitting Unavailable JERED, ED Primary Care Unavailable SHAIKH Tova CHILDRESS Attending Unavailable JERED, ED Attending Unavailable JERED, ED Consulting Unavailable JERED, ED Admitting Unavailable JERED, DE Attending Unavailable JERED, ED Consulting Unavailable JERED, ED Primary Care Unavailable JERED, ED Admitting Unavailable NO FAMILY, PHYSICIAN Primary Care Provider Unava MD Mo Marvin Attending Provider Jered, DO Ed Tejeda Primary Care Provider Jered, DO Ed Tejeda Attending Provider [phone] JeredEd avila DO Primary Care Provider NO FAMILY, PHYSICIAN Primary Care Provider Unava ilMD Mikey Lobo Attending Provider Ed Lawton DO Primary Care Provider NO FAMILY, PHYSICIAN Primary Care Provider Unava ilMD Mikey Lobo Attending Provider NO FAMILY, PHYSICIAN Primary Care Provider Unava ilable MD Mikey Mccord Attending Provider JeredDO Ed Primary Care Provider [phone] DO Jered Ed Nikhil Attending Provider NO FAMILY, PHYSICIAN Primary Care Provider Unava ilMD Mikey Lobo Attending Provider [phone] ED LAWTON Primary Care Unavailab le ABHYANKAR, NEVILLE Referring Unavailable ABHYBRIANNAAR, NEVILLE Attending Unavailable ED LAWTON Primary Care Unavailab le ABHYANKAR, NEVILLE Referring Unavailable ED LAWTON Primary Care Unavailab le ABHYANKAR, NEVILLE Attending Unavailable ED LAWTON Primary Care Unavailab le NO FAMILY, PHYSICIAN Primary Care Provider Unava ilMD Mikey Lobo Attending Provider MD Josue Muro Attending Provider [phone] DANA MOHAN Attending Unavailable Jered, Ed N Admitting Unavailable Jered, Ed N Primary Care Unavailable Jered, Ed N Attending Unavailable Jered, Ed N Primary Care Unavailable Jered, Ed N Attending Unavailable Jered, Ed N Admitting Unavailable NO FAMILY, PHYSICIAN Primary Care Unavailable Mikey Mccord Admitting Unavailab Mikey Scott Attending Unavailab le Jered, Ed N Primary Care Unavailable Asaad, Imad Admitting Unavailable Asaad Imad Attending Unavailable DO Ed Lawton Primary Care Provider [phone] DO Ed Lawton Attending Provider [phone] NO FAMILY, PHYSICIAN Primary Care Provider MD Mikey Valentine Attending Provider [phone] Allergies Allergy Classification Reported Allergen(s) Allergy Type Date of Onset Reaction(s) Facility (20 sources) Prochlorperazine; 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: [Compazine] Drug Allergy 3 Other (See Comments), Intolerance [facility] (1 source) Prochlorperazine Drug Allergy 3 [facility] Repository (2 sources) Prochlorperazine; 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: [PROCHLORPERAZINE] Drug Allergy 3 [facility] Repository Medications Current Medications Medication Drug Class(es) Dates Sig (Normalized) Sig (Original) [id number] 200 actuat albuterol 0.09 mg/actuat metered dose inhaler (20 sources) beta2-Adrenergic Agonist Start: 09-05-2023 Albuterol Sulfate Active 1 INH INHALATION Every 4 hours September 05, 2023 12:00am Start: 05-10-2023 albuterol HFA (PROVENTIL HFA, VENTOLIN HFA) 90 mcg/actuation inhaler Inhale 2 Puffs as instructed. 0 05/10/2023 Active Start: 05-10-2023 take 2 puff(s) by in halation four times daily albuterol (PROVENTIL HFA;VENTOLIN HFA) 90 mcg/actuation inhaler Inhale 2 puffs 4 (four) times a day. 0 05/10/2023 Active Start: 05-10-2023 End: 09-05-2023 take 90 ug by inhalation every four hours Albuterol Sulfate Discontinued 90 MCG INHALATION Every 4 hours May 10, 2023 1:00am September 05, 2023 10:23am Start: 07-26-2020 take 1 puff(s) by in [...] 3ml Inhalation 4 times a day Active amitriptyline hydrochloride 25 mg oral tablet (19 sources) Tricyclic Antidepressant Start: 09-06-2023 Amitriptyline Active 0 .ROUTE .COMPLEX September 06, 2023 12:39pm TAKE 1 TABLET AT BEDTIME DAILY Start: 05-10-2023 End: 09-06-2023 take 25 mg by mouth once daily at bedtime Amitriptyline Discontinued 25 MG PO Daily at bedtime May 10, 2023 1:05pm September 06, 2023 12:39pm apixaban 5 mg oral tablet (20 sources) Factor Xa Inhibitor Start: 12-01-2022 take 1 tablet by mouth twice daily Apixaban Active 5 MG PO Twice daily May 10, 2023 1:00am FreeTextSi tablet Orally Twice a day; Note: Source Status: Taking; Provider: Jered Ward ( ) aspirin 81 mg delayed release oral tablet (20 sources) Platelet Aggregation Inhibitor, Nonsteroidal Anti-inflammatory Drug Start: 06-23-2021 take 81 mg by mouth once daily Aspirin Active 81 MG PO Daily 90 June 23, 2021 12:00am Start: 05-06-2018 End: 08-26-2019 take 81 mg by mouth once daily Aspirin Discontinued 81 MG PO Daily May 06, 2018 1:00am August 26, 2019 11:58am Start: 02-27-2003 ASPIRIN 81MG T ABLET Take one (1) tablet daily . 0 0 02/27/2003 Active atorvastatin 80 mg oral tablet (20 sources) HMG-CoA Reductase Inhibitor Start: 09-05-2023 take 80 mg by mouth once daily Atorvastatin Active 80 MG PO Daily September 05, 2023 12:00am Start: 08-25-2020 End: 05-10-2023 take 1 tablet by mouth once daily Atorvastatin (Lipitor) 80 mg Tablet Discontinued 80 MG PO Daily June 16, 2021 12:00am May 10, 2023 11:26am Start: 05-11-2018 End: 09-05-2023 take 40 mg by mouth once daily Atorvastatin Discontinu ed 40 MG PO Daily July 24, 2023 12:00am September 05, 2023 10:22am Start: 05-06-2018 End: 08-31-2018 take 10 mg by mouth once daily Atorvastatin Discontinu ed 10 MG PO Daily May 06, 2018 1:00am August 31, 2018 5:45pm furosemide 20 mg oral tablet (20 sources) Loop Diuretic Start: 05-10-2023 take 0.5 tablet by mouth once daily Furosemide Active 20 MG PO Daily May 10, 2023 1:00am FreeTextSi/2 tablet Orally daily; Note: Source Status: Taking; Refills: 1; Provider: Jered Ward Start: 06-23-2021 End: 05-10-2023 take 40 mg by mouth once daily Furosemide Discontinued 40 MG PO Daily at 0800 30 30 June 23, 2021 12:00am May 10, 2023 11:26am Start: 05-09-2019 take 1 tablet by anca th once daily furosemide (LASIX) 20 mg tablet Take 1 tablet (20 mg total) by mouth daily. 90 tablet 2 02/05/2023 Active Start: 05-09-2019 take 0.5 tablet by m outh once daily Furosemide 20 MG 1/2 tablet Orally daily for 90 days Apr, Active Start: 05-09-2019 End: 06-16-2021 take 40 mg by mouth once daily Furosemide Discontinued 40 MG PO Daily August 26, 2019 12:01pm June 16, 2021 4:48am levothyroxine sodium 0.075 mg oral tablet (20 sources) l-Thyroxine Start: 09-05-2023 take 75 ug by mouth once daily Levothyroxine Active 75 MCG PO Daily September 05, 2023 12:00am Start: 08-15-2023 End: 08-15-2023 take 88 ug by mouth once daily Levothyroxine Discontin ued 88 MCG PO Daily August 15, 2023 2:19pm August 15, 2023 2:39pm Start: 08-15-2023 End: 09-05-2023 take 75 ug by mouth once daily Levothyroxine Discontin ued 75 MCG PO Daily August 15, 2023 12:00am September 05, 2023 10:22am Start: 06-26-2023 End: 08-15-2023 take 1 tablet by mouth once daily Levothyroxine Discontinued 0 .ROUTE .COMPLEX June 26, 2023 8:08am August 15, 2023 2:20pm TAKE 1 TABLET BY MOUTH EVERY DAY Start: 09-06-2018 End: 06-26-2023 take 1 tablet by mouth once daily Levothyroxine (Synthroid) 88 mcg Tablet Discontinued 88 MCG PO DAILY@0630 30 30 September 06, 2018 12:00am June 26, 2023 8:08am Start: 12-25-2002 End: 08-23-2023 take 100 ug by mouth once daily Levothyroxine Discontinued 100 MCG PO Daily May 06, 2018 1:00am September 06, 2018 2:12pm Levothyroxine So dium 88 MCG TAKE 1 TABLET BY MOUTH EVERY DAY FOR 90 DAYS for 90 Active magnesium glycinate 100 mg magnesium capsule (3 sources) Start: 08-23-2023 End: 09-22-2023 take 1 capsule by mouth once daily magnesium glycinate 100 mg magnesium capsule Take 1 capsule by mouth once daily. 15 capsule 1 08/23/2023 09/22/2023 Active 24 hr metoprolol succinate 25 mg extended release oral tablet (20 sources) beta-Adrenergic Alex Start: 06-01-2022 take 0.5 tablet by mouth once daily Metoprolol Succinate Active 12.5 MG PO Daily May 10, 2023 1:00am FreeTextSi/2 tablet Orally Once a day; Note: Source Status: Decrease; Provider: Jered Tejeda Start: 06-01-2022 take 1 tablet by anca th once daily in the morning metoprolol succinate XL (TOPROL XL) 25 mg 24 hr tablet TAKE 1 TABLET BY MOUTH EVERY MORNING 90 tablet 3 06/01/2022 Active Start: 06-08-2019 End: 08-26-2019 take 25 mg by mouth twice daily Metoprolol Tartrate Di scontinued 25 MG PO Twice daily 60 June 08, 2019 12:00am August 26, 2019 12:00pm take 1 tablet by anca th once daily metoprolol succinate ER (TOPROL XL) 25 mg 24 hr tablet Take 12.5 mg by mouth once daily. 0 Active take 1 tablet by anca th every twenty-four hours Metoprolol Succinate ER 25 MG 1 tablet Orally Once a day Active nitrofurantoin, macrocrystals 25 mg / nitrofurantoin, [...] tablet (20 sources) Proton Pump Inhibitor Start: 10-17-2023 take 2 tablets by mouth once daily, then take 1 tablet by mouth once daily Pantoprazole (Protonix) 40 mg tablet,delayed release (DR/EC) Active 40 MG PO Twice daily 112 56 October 17, 2023 3:32pm 2 tablets once a day for 8 weeks. Then cut back down to 1 tab daily. Start: 02-19-2019 End: 10-17-2023 take 1 tablet by mouth once daily Pantoprazole (Protonix) 40 mg tablet,delayed release (DR/EC) Discontinued 40 MG PO Daily May 10, 2023 1:00am July 19, 2023 10:04am FreeTextSi tablet Orally Once a day; Note: Source Status: Taking; Refills: 3; Qty: 90 Tablet; Provider: Jered Tejeda potassium chloride 20 meq powder for oral solution (20 sources) Start: 08-08-2023 take 20 mEq by mouth once daily Potassium Chloride Active 20 MEQ PO Daily August 08, 2023 12:00am Start: 05-10-2023 End: 08-08-2023 Potassium Chloride (Klor-Con M20) 20 mEq tablet,ER particles/crystals Discontinued 10 MEQ PO Daily May 10, 2023 11:27am August 08, 2023 2:35pm Start: 06-23-2021 take 2 tablets by mo [facility] once daily Potassium Chloride Millie ER 20 MEQ Oral Tablet Extended Release TAKE 2 TABLET Daily Quantity: 0 Refills: 0 Ordered: 23-Jun-2021 DO Start : 23-Jun-2021 Active Start: 06-23-2021 End: 05-10-2023 Potassium Chloride (Klor-Con M20) 20 mEq Tablet,Er Particles/Crystals Discontinued 40 MEQ PO Daily 60 June 23, 2021 12:00am May 10, 2023 11:32am Start: 06-01-2021 take 1 tablet by anca three times daily Potassium Chloride ER 10 [...] Start: 06-12-2019 take 1 tablet by anca every twenty-four hours Potassium Chloride ER 10 [...] 08, 2019 12:00am August 26, 2019 12:01pm take 10 mEq by mouth once daily potassium chloride (KLOR-CON M10 ORAL) Take 10 mEq by mouth once daily. 0 Active take 1 dose by mouth in the morning potassium chloride (KLOR-CON) 20 mEq packet Take 1 packet (20 mEq total) by mouth in the morning and 1 packet (20 mEq total) before bedtime. 0 Active predniSONE 5 mg oral tablet (18 sources) Start: 02-19-2019 take 0.5 tablet by mouth once daily predniSONE 5 MG Oral Tablet TAKE 0.5 TABLET Daily Quantity: 0 Refills: 0 Ordered: 19-Feb-2019 DO Start : 19-Feb-2019 Active Start: 05-16-2018 End: 08-23-2023 take 1-2 tablets by mouth once daily predniSONE (DELTASONE) 5 mg tablet TAKE 1-2 TABLETS BY MOUTH EVERY DAY 11 05/16/2018 08/23/2023 Discontinued Start: 05-06-2018 End: 06-16-2021 take 2.5 mg by mouth once daily Prednisone Discontinue d 2.5 MG PO Daily May 06, 2018 1:00am June 16, 2021 4:41am take 1 tablet by anca th every twenty-four hours prednisone 10 MG 1 Tablet Orally Once a day Active sertraline 100 mg oral tablet (12 sources) Serotonin Reuptake Inhibitor Start: 03-20-2023 take 1 tablet by mouth once daily sertraline (ZOLOFT) 100 mg tablet Take 1 tablet (100 mg total) by mouth nightly. 0 03/20/2023 Active Start: 06-16-2021 End: 06-23-2021 take 1 tablet by mouth once daily Sertraline (Zoloft) 100 mg Tablet Discontinued 100 MG PO Daily June 16, 2021 12:00am June 23, 2021 2:17pm Zoloft 50 MG Ora l Tablet TAKE 1 AND 1/2 TABLETS DAILY. Quantity: 0 Refills: 0 Ordered: 28-Apr-2021 DO Active Completed/Discontinued Medications Medication Drug Class(es) Dates Sig (Normalized) Sig (Original) alendronic acid 70 mg oral tablet (11 sources) Bisphosphonate Start: 05-06-2018 End: 06-03-2019 take [...] 03, 2019 4:18pm take 1 tablet by mouth once marco y ALPRAZolam 1 mg dissolvable tablet Take 1 mg by mouth once daily. 0 Active take 1 tablet by anca th every twelve hours ALPRAZolam 1 MG 1 tablet Orally Twice a day Active take 1 tablet by anca th three times daily as needed ALPRAZolam ER 1 MG Oral Tablet Extended Release 24 Hour 1 tablet three times daily as needed Quantity: 0 Refills: 0 Ordered: 28-Apr-2021 DO Active amiodarone hydrochloride 200 mg oral tablet (20 sources) Antiarrhythmic Start: 07-14-2021 take 1 tablet [...] 2019 3:48pm atenolol 25 mg oral tablet (8 sources) beta-Adrenergic Alex Start: 05-06-2018 End: 05-11-2018 take 25 mg by mouth once daily Atenolol Discontinued 25 MG PO Daily May 06, 2018 1:00am May 11, 2018 10:02am azithromycin 250 mg oral tablet (8 sources) Macrolide Antimicrobial Start: 09-06-2018 End: 06-01-2019 take 250 mg by mouth every twenty-four hours Azithromycin Discontinued 250 MG PO Q24H 3 3 September 06, 2018 12:00am June 01, 2019 4:04pm busPIRone hydrochloride 15 mg oral tablet (20 sources) Start: 06-01-2019 End: 06-23-2021 take 30 mg by mouth twice daily Buspirone Discontinued 30 MG PO Twice daily June 01, 2019 4:03pm June 23, 2021 2:17pm Start: 05-20-2018 End: 06-01-2019 take 15 mg by mouth twice daily Buspirone Discontinued 15 MG PO Twice daily 60 September 06, 2018 12:00am June 01, 2019 4:04pm Start: 05-20-2018 End: 08-23-2023 take 1 tablet by mouth twice daily busPIRone (BUSPAR) 7.5 mg tablet Take 7.5 mg by mouth twice daily. 1 05/20/2018 08/23/2023 Discontinued carvedilol 3.125 mg oral tablet (17 sources) alpha-Adrenergic Alex, beta-Adrenergic Alex Start: 06-23-2021 End: 05-10-2023 take 3.125 mg by mouth twice daily at mealtime Carvedilol Discontinued 3.125 MG PO Twice daily with meals June 23, 2021 12:00am May 10, 2023 11:26am cholecalciferol 1.25 mg oral capsule (2 sources) Vitamin D Start: 07-03-2018 End: 08-23-2023 take 1 capsule by mouth every week cholecalciferol, Vitamin D3, (VITAMIN D3) 50,000 unit cap capsule Take by mouth. TAKE ONE CAPSULE BY MOUTH WEEKLY. 3 07/03/2018 08/23/2023 Discontinued clopidogrel 75 mg oral tablet (20 sources) P2Y12 Platelet Inhibitor Start: 09-06-2018 End: 08-23-2023 take 75 mg by mouth once daily Clopidogrel Discontinued 75 MG PO Daily September 06, 2018 12:00am June 16, 2021 5:08am 24 hr dilTIAZem hydrochloride 180 mg extended release oral capsule (13 sources) Calcium Channel Alex Start: 02-19-2019 take 1 capsule by mouth once daily in the morning dilTIAZem HCl ER Beads 180 MG Oral Capsule Extended Release 24 Hour TAKE 1 CAPSULE DAILY IN THE MORNING. Quantity: 0 Refills: 0 Ordered: 19-Feb-2019 DO Start : 19-Feb-2019 Active Start: 05-10-2018 End: 06-01-2019 take 120 mg by mouth once daily Diltiazem Hcl Disconti nued 120 MG PO Daily May 10, 2018 1:00am June 01, 2019 4:04pm End: 08-23-2023 take 1 tablet by mouth four times daily diltiazem (CARDIZEM) 120 mg tablet Take 120 mg by mouth four times daily. 0 08/23/2023 Discontinued empagliflozin 10 mg oral tablet (20 sources) Sodium-Glucose Cotransporter 2 Inhibitor Start: 07-07-2021 End: 10-18-2023 take 1 tablet by mouth once daily Empagliflozin Discontinued 10 MG PO Daily May 10, 2023 1:00am October 18, 2023 2:07pm FreeTextSi tablet Orally Once a day; Note: Source Status: Taking; Refills: 1; Qty: 90 Tablet; Provider: Jered Tejeda take 1 tablet by anca once daily at breakfast empagliflozin (JARDIANCE) 25 mg tablet T chaparro 25 mg by mouth daily with breakfast. 0 Active ergocalciferol 1.25 mg oral capsule (6 sources) Provitamin D2 Compound Start: 02-19-2019 take 1 capsule by mouth every week Ergocalciferol 1.25 MG (26532 UT) Oral Capsule TAKE 1 CAPSULE WEEKLY. Quantity: 0 Refills: 0 Ordered: 19-Feb-2019 DO Start : 19-Feb-2019 Active ferrous sulfate 325 mg oral tablet (8 sources) Start: 06-03-2019 End: 06-16-2021 take 325 mg by mouth once daily Ferrous Sulfate Discontinued 325 MG PO Daily June 03, 2019 12:00am June 16, 2021 5:08am folic acid 1 mg oral tablet (20 sources) Start: 05-06-2018 End: 08-23-2023 take 1 tablet by mouth once daily Folic Acid Discontinued 1 MG PO Daily May 10, 2023 1:00am May 10, 2023 12:34pm FreeTextSi tablet Orally Once a day; Note: Source Status: Taking; Provider: Claudio hydrOXYzine pamoate 50 mg oral capsule (8 sources) Antihistamine Start: 05-11-2018 End: 06-01-2019 take 50 mg by mouth three times daily Hydroxyzine Pamoate Discontinued 50 MG PO Three times daily May 11, 2018 1:00am June 01, 2019 4:04pm lamoTRIgine 150 mg oral tablet (20 sources) Mood Stabilizer, Anti-epileptic Agent Start: 06-08-2019 End: 08-26-2019 take 25 mg by mouth once daily at bedtime Lamotrigine Discontinued 25 MG PO Daily at bedtime June 08, 2019 12:00am August 26, 2019 12:01pm Start: 06-03-2019 End: 06-03-2019 take 75 mg by mouth once daily at bedtime Lamotrigine Discontinued 75 MG PO Daily at bedtime June 03, 2019 12:00am June 03, 2019 4:32pm Start: 06-03-2019 End: 08-23-2023 take 1 tablet by mouth once daily Lamotrigine (Lamictal) 150 mg Tablet Discontinued 150 MG PO Daily June 16, 2021 12:00am June 23, 2021 2:17pm take 1 tablet by anca th once daily LaMICtal XR 50 MG Oral Tablet Extended Release 24 Hour Take 1 tablet daily Quantity: 0 Refills: 0 Ordered: 28-Apr-2021 DO Active lisinopril 5 mg oral tablet (20 sources) Angiotensin Converting Enzyme Inhibitor Start: 04-28-2021 [...] MD Start : 17-Mar-2021 Active Start: 08-26-2019 End: 05-10-2023 take 5 mg by mouth once daily Lisinopril Discontinued 5 MG PO Daily August 26, 2019 12:00am May 10, 2023 11:26am Start: 02-19-2019 take 1 tablet by anca th once daily Lisinopril 5 MG Oral Tablet TAKE 1 TABLET DAILY. Quantity: 90 Refills: 0 Ordered: 19-Feb-2019 DO Start : 19-Feb-2019 Active Start: 06-26-2018 End: 08-23-2023 take 1 tablet by mouth once daily lisinopril (ZESTRIL, PRINIVIL) 20 mg tablet Take 20 mg by mouth once daily. 5 06/26/2018 08/23/2023 Discontinued Start: 05-06-2018 End: 08-26-2019 take 5 mg by mouth once daily Lisinopril Discontinued 5 MG PO Daily May 06, 2018 1:00am August 26, 2019 11:59am take 0.5 tablet by m outh once daily Lisinopril 5 MG 1/2 tablet Orally Once a day for 30 days Active LORazepam 0.5 mg oral tablet (3 sources) Benzodiazepine Start: 02-19-2019 take 1 tablet by mouth three times daily as needed LORazepam 0.5 MG Oral Tablet TAKE 1 TABLET 3 TIMES DAILY NEEDED. Quantity: 0 Refills: 0 Ordered: 19-Feb-2019 DO Start : 19-Feb-2019 Active magnesium oxide 400 mg oral tablet (20 sources) Start: 06-23-2021 End: 05-10-2023 take 400 mg by mouth twice daily Magnesium Oxide Discontinued 400 MG PO Twice daily 60 30 June 23, 2021 12:00am May 10, 2023 11:26am Magnesium Oxide Active Methotrexate (20 sources) Folate Analog Metabolic Inhibitor Start: 05-10-2023 End: 05-10-2023 methotrexate sodium Discontinued PO May 10, 2023 1:00am May 10, 2023 12:35pm Start: 05-10-2023 End: 05-10-2023 methotrexate sodium Disconti nued PO May 10, 2023 12:00am May 10, 2023 11:35am Start: 02-19-2019 take 8 tablets by mo ut every week Methotrexate Sodium 2.5 MG Oral Tablet TAKE 8 TABLETS PER WEEK. Quantity: 0 Refills: 0 Ordered: 19-Feb-2019 DO Start : 19-Feb-2019 Active Start: 02-17-2019 End: 08-23-2023 take 6 tablets by mouth every week, then take 6 tablets by mouth every week methotrexate 2.5 mg tablet Indications: Seropositive rheumatoid arthritis (HCC) Take 6 tablets by mouth one time a week. Dose has been decreased to 6 tablets ONCE WEEKLY, as instructed 72 tablet 1 02/17/2019 08/23/2023 Discontinued Start: 05-06-2018 End: 06-03-2019 Methotrexate Discontinued 0 .ROUTE .COMPLEX May 06, 2018 1:00am June 03, 2019 1:00pm 8 2.5 MG TAB ONCE WEEKLY on sunday Methotrexate Sod ium Active Nebulizer Accessories (8 sources) Start: 09-06-2018 End: 06-16-2021 Nebulizer Accessories Discon tinued 0 .ROUTE .MEDSUPPLY September 06, 2018 12:00am June 16, 2021 4:49am As directed Start: 09-06-2018 End: 06-16-2021 Nebulizer Accessories Discon tinued 0 .ROUTE .MEDSUPPLY September 05, 2018 11:00pm June 16, 2021 3:49am As directed nitroglycerin 0.4 mg sublingual tablet (20 sources) Nitrate Vasodilator Start: 05-10-2018 End: 05-21-2023 Nitroglycerin Discontinued 0.4 MG SUBLINGUAL every 5 to 15 minutes August 26, 2019 12:00am June 16, 2021 5:09am omeprazole 40 mg oral tablet (18 sources) Proton Pump Inhibitor Start: 05-11-2018 End: 06-01-2019 take 40 mg by mouth once daily at bedtime Omeprazole Discontinued 40 MG PO Daily at bedtime May 11, 2018 1:00am June 01, 2019 4:04pm Start: 04-11-2018 End: 08-23-2023 take 40 mg by mouth twice daily Omeprazole Discontinued 40 MG PO Twice daily May 06, 2018 1:00am May 11, 2018 10:04am rOPINIRole 0.5 mg oral tablet (16 sources) Nonergot Dopamine Agonist Start: 09-06-2018 End: 06-01-2019 take 0.5 mg by mouth once daily at bedtime Ropinirole Discontinued 0.5 MG PO Daily at bedtime September 06, 2018 12:00am June 01, 2019 4:04pm Start: 05-06-2018 End: 08-31-2018 take 0.5 mg by mouth once daily at bedtime Ropinirole Discontinued 0.5 MG PO Daily at bedtime May 06, 2018 1:00am August 31, 2018 12:20pm sacubitril 24 mg / valsartan 26 mg oral tablet (20 sources) Angiotensin 2 Receptor Alex Start: 08-08-2022 End: 05-21-2023 take 1 tablet by mouth in the morning ENTRESTO 24-26 mg tablet Take 1 tablet by mouth in the morning and 1 tablet before bedtime. 180 tablet 3 04/27/2023 05/21/2023 Discontinued (Stop Taking at Discharge) Start: 06-23-2021 End: 08-23-2023 take 1 tablet by mouth twice daily Sacubitril-Valsartan (Entresto) 24-26 mg tablet Discontinued 1 TAB PO Twice daily May 10, 2023 11:27am August 08, 2023 2:02pm ENTRESTO 24 mg/2 6 mg 1 orally twice a day Active Sod Sulf-Pot Chloride-Mag Rousseau lf (Sutab) 1.479-0.188- 0.225 gram tablet (5 sources) Start: 10-17-2023 End: 11-14-2023 Sod Sulf-Pot Chloride-Mag Rousseau lf (Sutab) 1.479-0.188- 0.225 gram tablet Discontinued 12 TAB PO Twice daily 11 04October 17, 2023 3:14pm November 14, 2023 1:01pm Take the first dose at 3pm the day before colonoscopy, Take the second dose at 9pm the evening before colonoscopy. Start: 10-17-2023 Sod Sulf-Pot C hloride-Mag Sulf (Sutab) 1.479-0.188- 0.225 gram tablet Active 12 TAB PO Twice daily 11 04October 17, 2023 3:14pm Take the first dose at 3pm the day before colonoscopy, Take the second dose at 9pm the evening before colonoscopy. Start: 08-29-2023 End: 10-17-2023 Sod Sulf-Pot Chloride-Mag Rousseau lf (Sutab) 1.479-0.188- 0.225 gram tablet Discontinued 12 TAB PO Twice daily 11 04August 29, 2023 12:00am October 17, 2023 3:15pm Take the first dose at 3pm the day before colonoscopy, Take the second dose at 9pm the evening before colonoscopy. Start: 08-29-2023 Sod Sulf-Pot C hloride-Mag Sulf (Sutab) 1.479-0.188- 0.225 gram tablet Active 12 TAB PO Twice daily 11 04August 29, 2023 12:00am Take the first dose at 3pm the day before colonoscopy, Take the second dose at 9pm the evening before colonoscopy. sotalol hydrochloride 120 mg oral tablet (13 sources) Antiarrhythmic Start: 04-29-2021 take 0.5 tablet [...] hrs Active spironolactone 25 mg oral tablet (20 sources) Aldosterone Antagonist Start: 06-23-2021 take 0.5 tablet by mouth once daily Spironolactone 25 MG Oral Tablet TAKE 1/2 TABLET BY MOUTH EVERYDAY Quantity: 45 Refills: 3 Ordered: 22-Aug-2021 Marty Lynn MD Start : 23-Jun-2021 Active Start: 06-23-2021 End: 05-10-2023 take 12.5 mg by mouth once daily Spironolactone Discontinued 12.5 MG PO Daily 15 June 23, 2021 12:00am May 10, 2023 11:27am ticagrelor 90 mg oral tablet (8 sources) Start: 05-10-2018 End: 08-31-2018 take 1 [...] as needed Orally once a day Not-Taking vitamin b12 1 mg/ml injectable solution (2 sources) Vitamin B12 Start: 09-05-2018 End: 08-23-2023 cyanocobalamin (VITAMIN B-12) 1,000 mcg/mL soln Indications: B12 deficiency Inject 1 mL intramuscularly every 4 weeks. 1 mL 09/05/2018 08/23/2023 Discontinued warfarin sodium 5 mg oral tablet (20 sources) Vitamin K Antagonist Start: 02-19-2019 take 1 tablet by mouth once daily Warfarin Sodium 5 MG Oral Tablet TAKE 1 TABLET DAILY DIRECTED by [facility] Quantity: 0 Refills: 0 Ordered: 19-Feb-2019 DO Start : 19-Feb-2019 Active Start: 08-31-2018 End: 05-10-2023 Warfarin (Coumadin) 2 mg tab let Discontinued 1 MG PO As Directed August 31, 2018 12:00am May 10, 2023 11:28am as directed by [facility] Start: 06-11-2018 End: 08-23-2023 warfarin (COUMADIN) 2 mg tab let TAKE 1/2 TABLET BY MOUTH ON MONDAYS AND 1 TABLET ALL OTHER DAYS OR DIRECTED PER [facility]IN CLINIC 3 06/11/2018 08/23/2023 Discontinued Start: 05-10-2018 End: 08-31-2018 take 1 tablet [...] kidney failure, unspecified] 06-20-2021 Episodic Anxiety disorders (20 sources) Anxiety; 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: [Anxiety disorder, unspecified] Onset: 0 05-06-2018 Chronic Asthma (4 sources) Asthma; 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: [Unspecified asthma, uncomplicated] Onset: 0 10-27-2019 Chronic Cardiac dysrhythmias (20 sources) Paroxysmal atrial fibrillation; 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: [Atrial fibrillation] Onset: 0 Resolved: 2 Chronic Comment on above: Status post radiofre quency ablation at ; Chronic obstructive pulmonary disease and bronchiectasis (20 sources) Chronic obstructive lung disease; 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: [Chronic obstructive pulmonary disease, unspecified] Onset: 0 Chronic Complications of surgical procedures or medical care (1 source) Hypotension due to drugs Episodic Congestive heart failure; nonhypertensive (20 sources) Acute on chronic systolic heart failure; 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: [Acute on chronic systolic (congestive) heart failure] Onset: 2 Resolved: 2 Chronic Coronary atherosclerosis and other heart disease (20 sources) Coronary atherosclerosis; 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: [Coronary atherosclerosis of [place] coronary artery] Onset: 2 05-10-2018 Chronic Coronary atherosclerosis and other heart disease (17 sources) Patient post percutaneous transluminal coronary angioplasty; 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: [Percutaneous transluminal coronary angioplasty status] 05-10-2023 Episodic Comment on above: LAD 2019; Deficiency and other anemia (19 sources) Iron deficiency anemia; 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: [Iron deficiency anemia, unspecified] 05-10-2023 Episodic Disorders of lipid metabolism (20 sources) Dyslipidemia; 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: [Other and unspecified hyperlipidemia] Onset: 0 08-31-2018 Chronic Esophageal disorders (20 sources) Gastroesophageal reflux disease; 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: [Gastro-esophageal reflux disease without esophagitis] Onset: 0 Chronic Essential hypertension (20 sources) Benign essential hypertension; 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: [Benign essential hypertension] Onset: 0 Resolved: 2 Chronic Fluid and electrolyte disorders (18 sources) Metabolic acidosis; 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: [Metabolic acidosis] 09-01-2018 Episodic Genitourinary symptoms and ill-defined conditions (2 sources) Dysuria Episodic Hypertension with complications and secondary hypertension (1 source) Hypertensive heart disease with heart failure; 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: [HTN HEART DISEASE W/HEART FAIL] Onset: 3 Chronic Malaise and fatigue (13 sources) Fatigue; 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: [Chronic fatigue, unspecified] Chronic Malaise and fatigue (9 sources) Asthenia; 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: [Weakness] 06-03-2019 Episodic Mood disorders (20 sources) Bipolar II disorder; 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: [Bipolar II disorder] Onset: 1 Resolved: 1 Chronic Nausea and vomiting (12 sources) Nausea; 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: [Nausea] Episodic Non-Hodgkin`s lymphoma (5 sources) Diffuse non-Hodgkin's lymphoma, large cell (clinical); 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: [Diffuse large B-cell lymphoma, extranodal and solid organ sites] Onset: 4 08-23-2023 Chronic Occlusion or stenosis of precerebral arteries (4 sources) Carotid artery occlusion; 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: [Occlusion and stenosis of unspecified carotid artery] Onset: 3 07-13-2003 Chronic Osteoarthritis (1 source) Unspecified osteoarthritis, unspecified site; 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: [UNSPECIFIED OSTEOARTHRITIS UNS SITE] Onset: 3 Chronic Osteoporosis (20 sources) Adult idiopathic generalized osteoporosis; 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: [Other osteoporosis without current pathological fracture] Onset: 0 10-27-2019 Chronic Other aftercare (17 sources) Drug therapy finding; 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: [Long-term (current) use of other medications] Episodic Other aftercare (11 sources) Encounter for therapeutic drug level monitoring; 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: [Encounter for therapeutic drug monitoring] Onset: 1 Resolved: 1 Episodic Other aftercare (3 sources) Polypharmacy ; 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: [Other skilled nursing (current) drug therapy] 09-01-2018 Episodic Other aftercare (1 source) Other histology aide (current) drug therapy; 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: [OTH ASSISTED CURRENT DRUG THERAPY] Onset: 3 Episodic Other and ill-defined heart disease (7 sources) Systolic dysfunction; 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: [Heart disease, unspecified] Chronic Other and ill-defined heart disease (3 sources) Left ventricular systolic dysfunction; 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: [Heart disease, unspecified] 06-18-2021 Chronic Other circulatory disease (2 sources) Low blood pressure; 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: [Hypotension, unspecified] 06-20-2021 Episodic Other connective tissue disease (2 sources) Rhabdomyolysis; 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: [Rhabdomyolysis] 09-01-2018 Episodic Other disorders of stomach and duodenum (1 source) Cyclical vomiting syndrome; 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: [Cyclical vomiting syndrome unrelated to migraine] 05-10-2023 Episodic Other disorders of stomach and duodenum (1 source) Cyclical vomiting syndrome unrelated to migraine; 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: [Persistent vomiting] 05-10-2023 Episodic Other gastrointestinal disorders (19 sources) Pharyngeal dysphagia; 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: [Dysphagia, pharyngeal phase] 05-10-2023 Episodic Other gastrointestinal disorders (1 source) Dysphagia; 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: [Dysphagia, unspecified] 05-10-2023 Episodic Other gastrointestinal disorders (5 sources) Dysphagia, pharyngeal phase; 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: [Dysphagia, pharyngeal phase] Onset: 4 08-08-2023 Episodic Other hematologic conditions (4 sources) Raised cardiac enzyme or marker; 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: [Other specified abnormalities of plasma proteins] 08-31-2018 Episodic Other liver diseases (12 sources) Enzyme level - finding; 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: [Elevated transaminase measurement] 06-03-2019 Episodic Other liver diseases (3 sources) Cardiac enzymes abnormal; 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: [Abnormal levels of other serum enzymes] 09-02-2018 Episodic Other lower respiratory disease (3 sources) Hypoxia; 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: [Hypoxemia] 06-16-2021 Episodic Other lower respiratory disease (1 source) Dyspnea, unspecified; 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: [Other respiratory abnormalities] 05-10-2023 Episodic Other nutritional; endocrine; and metabolic disorders (12 sources) Obesity; 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: [Obesity, unspecified] Chronic Other nutritional; endocrine; and metabolic disorders (13 sources) Obese class II; 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: [Body mass index (BMI) 38.0-38.9, adult] Chronic Other nutritional; endocrine; and metabolic disorders (1 source) Body mass index (BMI) 38.0-38.9, adult Chronic Other nutritional; endocrine; and metabolic disorders (1 source) Body mass index 30+ - obesity; 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: [Body mass index (BMI) 38.0-38.9, adult] 05-10-2023 Chronic Other nutritional; endocrine; and metabolic disorders (2 sources) Abnormal weight loss; 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: [Loss of weight] Onset: 4 05-10-2023 Episodic Other nutritional; endocrine; and metabolic disorders (2 sources) Abnormal weight loss; 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: [Abnormal weight loss] 08-23-2023 Episodic Other screening for suspected conditions (not mental disorders or infectious disease) (20 sources) Prolonged QT interval; 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: [Nonspecific abnormal electrocardiogram [ECG] [EKG]] Onset: 4 Resolved: 1 Episodic Pneumonia (except that caused by tuberculosis or sexually transmitted disease) (4 sources) Community acquired pneumonia; 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: [Pneumonia, unspecified organism] 08-31-2018 Episodic Residual codes; unclassified (6 sources) Tobacco user; 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: [Tobacco use] 06-18-2021 Episodic Residual codes; unclassified (3 sources) Acute confusion; 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: [Disorientation, unspecified] 09-04-2018 Episodic Residual codes; unclassified (1 source) Other amnesia; 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: [Memory loss] 11-14-2023 Episodic Rheumatoid arthritis and related disease (20 sources) Rheumatoid arthritis - hand joint; 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: [Rheumatoid arthritis, unspecified] Onset: 4 Chronic Screening and history of mental health and substance abuse codes (7 sources) Ex-smoker; 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: [Personal history of tobacco use] Episodic Septicemia (except in labor) (2 sources) Sepsis; 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: [Sepsis, unspecified organism] 09-02-2018 Episodic Substance-related disorders (20 sources) Smoker; 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: [Tobacco use disorder] Onset: 1 Resolved: 1 Chronic Thyroid disorders (20 sources) Acquired hypothyroidism; 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: [Hypothyroidism, unspecified] Onset: 0 Resolved: 2 Chronic Past or Other Problems Problem Classification Problem Date Documented Da te Episodic/Chronic Deficiency and other anemia (3 sources) Anemia; 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: [Anemia, unspecified] Onset: 10-27-2019 10-27-2019 Episodic Other aftercare (1 source) 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; 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: [ASSISTED CURRNT USE ANTICOAGULANTS] Onset: 10-17-2021 Episodic Other nervous system disorders (3 sources) Dysphasia; 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: [Dysphasia] Onset: 10-27-2019 10-27-2019 Episodic Residual codes; unclassified (3 sources) Edema of lower extremity; 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: [Localized edema] Onset: 10-27-2019 10-27-2019 Episodic Unclassified (4 sources) Well adult; 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: [Full-term infant] 08-08-2023 Results Test Name Value Interpretation Reference Range Facility Amphetamine Screen Ql (U)Ord ered By: Imloreta Asaad on 09-17-2023 Amphetamines Ql (U) Negative Negative [facility] Barbiturates [Presence] in U rine by Screen methodOrdered By: Imad Asaad on 09-17-2023 Barbiturates Screen Ql (U) Negative Negative [facility] Benzodiazepines Screen Ql (U )Ordered By: Imad Asaad on 09-17-2023 Benzodiazepines Ql (U) Positive High Negative [facility] Benzoylecgonine [Presence] i n Urine by Screen methodOrdered By: Imad Asaad on 09-17-2023 Benzoylecgonine Screen Ql (U) Negative Negative [facility] Cannabinoids [Presence] in U rine by Screen methodOrdered By: Imad Asaad on 09-17-2023 Cannabinoids Screen Ql (U) Positive High Negative [facility] Comment on above: These are unconfirme d results and should not be used for legal purposes. Drug Cut-Off Concentration: AMPH 1000 ng/mL TAYLER 200 ng/mL JESSY 200 ng/mL COCM 300 ng/mL OP 300 ng/mL PCP 25 ng/mL THC 20 ng/mL Drug Screen,Urineon 09-17-19 24 Amphetamine Screen,Urine Negative Normal Negative [facility] Comment on above: Performed By: #### U RDS #### [address] Barbiturate Screen,Urine Negative Normal Negative [facility] Comment on above: Performed By: #### U RDS #### [address] Benzodiazepines Screen,Urine Positive High Negative [facility] Comment on above: Performed By: #### U RDS #### [address] Cannabinoid Screen,Urine Positive High Negative [facility] Comment on above: Result Comment: Thes e are unconfirmed results and should not be used for legal purposes. Drug Cut-Off Concentration: AMPH 1000 ng/mL TAYLER 200 ng/mL JESSY 200 ng/mL COCM 300 ng/mL OP 300 ng/mL PCP 25 ng/mL THC 20 ng/mL PERFORMED BY: [place] [address] PATHOLOGIST SENIOR NURSE MANAGER ROSANNA MARIN M.D. Performed By: #### U RDS #### [address] Cocaine Screen,Urine Negative Normal Negative [facility] Comment on above: Performed By: #### U RDS #### [address] Opiate Screen,Urine Negative Normal Negative [facility] Comment on above: Performed By: #### U RDS #### [address] Phencyclidine Screen,Urine Negative Normal Negative [facility] Comment on above: Performed By: #### U RDS #### [place] [address] [place] Mer[place] 09-17-2023 L Specimen: [id number] Received: 09/18/23 Status: HENRY Fatima Num: [id number] Spec Type: Surgical Subm Dr: Josue Muro MD Tissues: A Esophagus Biopsy (ESOPHAGUS BX) B Colon Biopsy (TRANSV POLYP) C Colon Biopsy (DESC POLYP) D Colon Biopsy (RECTAL POLYPS) Procedures: HE/8, Gross/Micro L4/4 Age/ Patient Sex Location Account Attending Physician Arian Fritz 63/F [id number] Josue Muro MD SPEC NUM: [id number] RECD: 09/18/23 STATUS: HENRY FATIMA NUM: [id number] ANNE: 09/17/23- SUBM DR: Josue Muro MD ENTERED: 09/18/[address] [facility] [address]: SPEC TYPE: Surgical DEPT: S ORDERED: HE/8, Gross/Micro L4/4 ORDERED: HE/8, Gross/Micro L4/4 Pathological Diagnosis A, esophageal biopsy: -Squamocolumnar mucosa with mild chronic Blackman esophagitis without glandular dysplasia, or any other significant abnormality identified B, transverse colon polyp biopsy: -Consistent with a small adenomatous polyp in at least 1 fragment C, descending colon polyp biopsy: -Fragments of tubular adenoma D, rectal polyp biopsy: -Fragments of benign hyperplastic polyp Clinical Information History of colon polyps/dysphagia Specimen: [id number] Received: 09/18/23 Status: HENRY Toñito Num: [id number] Spec Type: Surgical Subm Dr: Josue Muro MD Tissues: A Esophagus Biopsy (ESOPHAGUS BX) B Colon Biopsy (TRANSV POLYP) C Colon Biopsy (DESC POLYP) D Colon Biopsy (RECTAL POLYPS) Procedures: 8, Gross/Micro L4/4 Patient: Arian Fritz [id number] (Continued) Specimen: [id number] Received: 09/18/23 (Continued) Signed (signature on file) Codie Gannon MD 09/19/23 1834 Specimen: [id number] Received: 09/18/23 Status: HENRY Toñito Num: [id number] Spec Type: Surgical Subm Dr: Josue Muro MD Tissues: A Esophagus Biopsy (ESOPHAGUS BX) B Colon Biopsy (TRANSV POLYP) C Colon Biopsy (DESC POLYP) D Colon Biopsy (RECTAL POLYPS) Procedures: SUZE/Madiha Lynne/Jovi L4/4 Patient: Arian Fritz [id number] (Continued) Specimen: [id number] Received: 09/18/23 (Continued) Gross Description Received are 4 formalin filled containers each labeled with the patient's name, date of and specific specimen site. A. Further labeled esophageal biopsy are 2 andrew mucosal tissue fragments measuring 0.4 x 0.2 x 0.1 cm and 0.2 x 0.1 x 0.1 cm, entirely submitted in A1. B. Further labeled transverse colon polyp is a 0.2 x 0.2 x 0.1 cm andrew polypoid tissue fragment admixed with mucus and possible vegetable matter, entirely submitted in B1. C. Further labeled descending colon polyp is a 0.4 x 0.3 x 0.2 cm andrew polypoid tissue fragment, entirely submitted in C1. D. Further labeled rectal polyp are 3 andrew mucosal tissue fragments ranging from 0.2 x 0.2 x 0.1 cm to 0.1 x 0.1 x 0.1 cm, entirely submitted in D1. TW Microscopic Description Microscopic examination are performed supporting the above interpretation CPT Codes 37727N5 Specimen: [id number] Received: 09/18/23 Status: HENRY Fatima Num: [id number] Spec Type: Surgical Subm Dr: Josue Muro MD Tissues: A Esophagus Biopsy (ESOPHAGUS BX) B Colon Biopsy (TRANSV POLYP) C Colon Biopsy (DESC POLYP) D Colon Biopsy (RECTAL POLYPS) Procedures: HE/Guera, Madiha/Jovi L4/4 Patient: Arian Fritz [id number] (Continued) Signed (signature on file) Francois-Prakash Gannon MD 09/19/23 1834 Normal [facility] Opiates [Presence] in Urine by Screen methodOrdered By: Josue Muro on 09-17-2023 Opiates Screen Ql (U) Negative Negative [facility] Phencyclidine Screen Ql (U)O rdered By: Josue Muro on 09-17-2023 Phencyclidine Ql (U) Negative Negative [facility] CNOVSPon 09-14-2023 CNOVSP Visit (SP) Office ([place]) ----- ARIAN FRITZ ([id number]) 1960 F Date Time Provider Department 09/14/23 3:45 PM NEVILLE YEE During your visit today, we recorded the following information about you: Temperature Pulse Respiration Blood pressure 97.8 degrees 72/minute 18/minute 120/76 Weight 52.9 kg Neville Yee MD 09/14/2023 6:27 PM Signed NAME: Arian Fritz CLINIC NO.: [id number] DATE OF SERVICE: September 14, 2023 (ally) Some elements in this clinic note that are critical to medical decision making have been carefully reviewed and included from a prior clinic note dated: August 23, 2023 (Kirit) Referring Provider: Self Referred Additional Clinicians involved in Arian Fritz's care: DIAGNOSIS: History of NHL 2004 Abnormal weight loss. ASSESSMENT: 63 year old woman with a history of NHL diagnosed after a liver biopsy. Currently is concerned with abnormal weight loss and possible recurrence of disease. PET/CT was negative. No apparent malignant cause of symptoms were able to be identified at this time. PLAN: RTC PRN ____- HPI: CASE HISTORY: Reverse Chronological Order 09/10/2023 - PET/CT: CHEST: FDG avid subcentimeter right axillary lymph node, probably reactive from radiotracer injection in the right upper extremity. Abnormally dilated pulmonary vessels in the lingula, suggestive of pulmonary arteriovenous malformation. HEAD/NECK, ABDOMEN/PELVIS, MUSCULOSKELETAL: No FDG avid neoplastic process. Followed with Dr. Kurt Ballard for NHL 05/11/2006 - CT CAP: Chest: there are some mild old inflammatory changes, but no adenopathy or mass is seen within the chest. No convincing change. A/P: Small hepatic abnormalities, smaller than before. No new hepatic abnormalities seen. No adenopathy. Bilateral L5 pars defects. Small hiatal hernia. No pelvis abnormality identified 09/20/2004 - CT CAP: Chest: The previously demonstrated pulmonary nodules are no longer visualized. Lungs are now clear. The enlarged mediastinal lymph nodes noted on the prior study have markedly decreased in size (largest is 7 x 8 mm) in the precarinal region. A/P: Marked decrease in size of the liver metastases. Several small hypodense lesions persist as described above. There are multiple linear areas of low attenuation within the liver probably secondary to fibrotic scars. No significant pelvis abnormality. 04/21/2004 - CT CAP: Chest: No mediastinal or axillary lymphadenopathy. A/P: Multiple low areas of attenuation in the liver have decreased in number and size compared to the study of December 30, 2003. No abnormal mass or pelvis lymphadenopathy. 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 These were also noted on 09/15/[address] and I do not see any obvious change. Small hiatal hernia. Questionable small ovarian cysts. This could be further evaluated with ultrasound. Pelvis otherwise unremarkable. 09/15/2003 - CT Chest: Multiple bilateral upper lobe nodules and mediastinal lymphadenopathy with associated evidence of metastatic liver disease and lymphadenopathy noted in the region of the celiac trunk origin. The differential diagnosis includes lymphoproliferative disorder such as lymphoma as well as metastatic disease related to a neoplasm of unknown etiology. The most likely causes would be adenocarcinoma from either the breast or GI tract. Melanoma could result in these findings. Updated Visit, September 14, 2023: Arian returns today with Cora. Her PET scan shows no evidence of NHL recurrence. She has gained 1lb since her last visit. EGD/colonoscopy next week. She may RTC with tn PRN. Initial Visit, August 23, 2023: Arian Fritz presents today for a Hematology and Oncology evaluation. She is joined by her daughter, Cora. She is a 63 year old female who was diagnosed with Non Hodgkin's lymphoma with metastases to the liver and lung in 2003. She completed chemotherapy with Dr. Kurt Ballard in 03/2004 and has had no evidence of recurrence. She now reports unintentional weight loss - 70lbs in 3 months. Denies fever, chills, and night sweats. Endorses normal bowel movements. Her appetite has been stable, she is supplementing with Ensure drinks. Increasing memory problems recently. She has an EGD/Colonoscopy scheduled. She is a current smoker - 8-10 cigarettes a day. She had nausea, vomiting, and diarrhea while taking a magnesium supplement in the past. She has a history or COPD, CHF, and AFIB. She has not had AFIB since 2019 when she got the loop implant. She (more content not included)... Normal [facility] PET/CT SKULL-THIGH INITon 09-10-2023 [place] PET/CT SKULL-THIGH INIT * * *Final Report* * * DATE OF EXAM: Sep 10 2023 3:57PM NRN [id number] - [place] PET/CT SKULL-THIGH INIT / PROCEDURE REASON: Diffuse large B-cell lymphoma of solid organ excluding spleen (HCC) * * * * Physician Interpretation * * * * RESULT: EXAMINATION: BODY FDG PET-CT CLINICAL HISTORY: Diffuse large B-cell lymphoma of solid organ excluding spleen (HCC) . Completed chemotherapy in 2004 TECHNIQUE: Radiopharmaceutical was administered IV followed about 60 minutes later by PET imaging from eyes to proximal thighs. Free breathing, low dose CT of the same body region was acquired without IV contrast for attenuation correction and anatomic localization. * CT Dose-Length Product (DLP): 154 mGy*cm * CT Dose Reduction Employed: Yes * Blood glucose (mg/dL): 86 * Radiopharmaceutical Activity: 6.4 mCi * Radiopharmaceutical: [id number] (FDG) * All reported standardized uptake values represent maximum SUV (SUVmax) per body weight, unless otherwise specified. COMPARISON: No previous FDG PET/CT available CORRELATION: No relevant imaging available RESULT: REFERENCES: SUV reference values: * Blood pool (descending aorta) activity: SUVmax 2.2 * Background liver activity: SUVmax 2.3 Health Insurance Agent (topogram) images: No additional findings. Notes and limitations: * Standardized uptake values indicate the highest activity concentration (SUVmax) at a given location but can be variable and are not absolute. * Physiologic/non-neoplasti c uptake is common in the brain, extraocular muscles, oral cavity, tonsils, salivary glands, vocal cords, myocardium, liver, GI tract, urinary tract, and bone marrow among others. Certain regions and organ systems can have more intense uptake, which could confound or obscure some pathology. * Unenhanced imaging is limited for the evaluation of some pathology and the acquired CT was not designed to produce or replace diagnostic CT scan quality. * PET-CT is often not sensitive for pulmonary nodules less than 8 mm. HEAD AND NECK: Imaged Head: No abnormal uptake. Neck and Lymph Nodes: No abnormal uptake. Thyroid: No abnormal uptake. CHEST: Lungs and Airways: No abnormal uptake. Abnormally dilated pulmonary vessels in the anterior lingula. Pleura and Pericardium: No abnormal uptake. Cardiovascular: No abnormal uptake. Mediastinum and Lymph Nodes: Subcentimeter right axillary lymph node with FDG uptake, 0.5 cm, SUV 4.5. No other FDG avid adenopathy. ABDOMEN AND PELVIS: Hepatobiliary: No abnormal uptake. Spleen: No abnormal uptake. Pancreas: No abnormal uptake. Adrenals: No abnormal uptake. Urinary Tract: No abnormal uptake. GI Tract: No abnormal uptake. Peritoneum: No abnormal uptake. Vasculature: No abnormal uptake. Retroperitoneum and Lymph Nodes: No abnormal uptake. Pelvis: No abnormal uptake. MUSCULOSKELETAL: Osseous: No abnormal uptake. Degenerative uptake in the spine, shoulders and hip joints Soft Tissues: No abnormal uptake. IMPRESSION: HEAD/NECK: * No FDG avid neoplastic process. CHEST: * FDG avid subcentimeter right axillary lymph node, probably reactive from radiotracer injection in the right upper extremity. * Abnormally dilated pulmonary vessels in the lingula, suggestive of pulmonary arteriovenous malformation. ABDOMEN/PELVIS: * No FDG avid neoplastic process. MUSCULOSKELETAL: * No FDG avid neoplastic process. Transcribe Date/Time: Sep 14 2023 2:29P Dictated by: MARK PETERSON MD This examination was interpreted and the report reviewed and electronically signed by: MARK PETERSON MD on Sep 14 2023 2:48PM EST Thank you for allowing us to participate in the care of your patient. Should there be any questions regarding this interpretation, please call [phone]. If you are unable to reach us at the number above, please feel free to contact [facility] at [phone]. [id number] Normal [facility] CNPKalli 09-05-2023 ELISHAN Telephone (HEMPONCHO) ----- LAMARIAN ([id number]) 1960 F Date Time Provider Department 09/05/23 MAICOL MCQUEEN During your visit today, we recorded the following information about you: Maicol Mcqueen RN 09/05/2023 2:16 PM Signed pt having colonoscopy/EGD 09/17/23. Pt needs to hold Eliquis and Jardiance for 4 days prior. Max: Please advise Neville Canseco MD 09/06/2023 8:32 AM Signed Agree thanks Noris Hernandez RN 09/06/2023 9:15 AM Signed Left message on VM that Dr. Santana agreeable with plan. Informed her to call back with further questions. Left phone number to . Noris Hernandez RN Allergies As of Date: 09/05/2023 Noted Allergy Reaction PROCHLORPERAZINE 12/25/2002 5 - Intolerance Comments: compazine Date Reviewed: 12/10/2018 Reviewed by: Wong Mora (Lindsey) - Fully Assessed Prescriptions as of 09/06/2023 - magnesium glycinate 100 mg magnesium capsule Take 1 capsule by mouth once daily. - ALPRAZolam 1 mg dissolvable tablet Take 1 mg by mouth once daily. - apixaban (ELIQUIS) 5 mg tab(s) Take by mouth two times a day. - empagliflozin (JARDIANCE) 25 mg tablet Take 25 mg by mouth daily with breakfast. - furosemide (LASIX) 20 mg tablet Take 20 mg by mouth once daily. - metoprolol succinate ER (TOPROL XL) 25 mg 24 hr tablet Take 12.5 mg by mouth once daily. - pantoprazole DR (PROTONIX) 40 mg tablet Take 40 mg by mouth once daily. - potassium chloride (KLOR-CON M10 ORAL) Take 10 mEq by mouth once daily. - amitriptyline (ELAVIL) 25 mg tablet Take 25 mg by mouth. - albuterol HFA (PROVENTIL HFA, VENTOLIN HFA) 90 mcg/actuation inhaler Inhale 2 Puffs as instructed. - atorvastatin (LIPITOR) 40 mg tablet Take 40 mg by mouth daily at bedtime. - ASPIRIN 81MG TABLET Take one (1) tablet daily . Problem List As Of Date 09/05/2023 Noted Resolved CAROTID ART OCCL-NO INFARCT [I65.29] 01/12/2003 IMMUNOLOGICAL FIND OTHR OR UNSPEC [R89.4] 04/22/2003 RHEUMATOID ARTHRITIS [M06.9] 04/22/2003 Bipolar II disorder (HCC) [F31.81] 08/25/2023 Encounter Status:Closed by NORIS HERNANDEZ on 09/06/23 Normal [facility] Cholesterol [Mass/Vol]on Interpretation and review of laboratory results Normal [facility] Coagulation factor V activit y actual/normal Coag (PPP) [Relative time]on 08-24-2023 Interpretation and review of laboratory results Abnormal [facility] Coagulation factor VIII acti vity actual/normal Coag (PPP) [Relative time]Ordered By: Jane Mtz on 08-24-2023 Interpretation and review of laboratory results Abnormal [facility] Comprehensive metabolic 2000 panelon 08-24-2023 Albumin [Mass/Vol] 3.8 g/dL Low 3.9 - 4.9 g/dL [facility] ALP [Catalytic activity/Vol] 123 U/L 34 - 123 U/L [facility] ALT [Catalytic activity/Vol] 9 U/L 7 - 38 U/L [facility] Anion gap [Moles/Vol] 12 mmol/L 8 - 15 mmol/L [facility] AST [Catalytic activity/Vol] 16 U/L 13 - 35 U/L [facility] Bilirubin [Mass/Vol] 0.4 mg/dL 0.2 - 1 .3 mg/dL [facility] Calcium [Mass/Vol] 10.0 mg/dL 8.5 - 10. 2 mg/dL [facility] Chloride [Moles/Vol] 103 mmol/L 98 - 10 7 mmol/L [facility] CO2 [Moles/Vol] 24 mmol/L 22 - 30 mmol/L [facility] Creatinine [Mass/Vol] 0.78 mg/dL 0.58 - 0.96 mg/dL [facility] GFR/1.73 sq M.predicted among non-blacks MDRD (S/P/Bld) [Vol rate/Area] 85 mL/min/{1.73_m2} - PINF [facility] Comment on above: Estimated Glomerular Filtration Rate (eGFR) is calculated using the 2020 CKD-EPI creatinine equation. This equation utilizes serum creatinine, sex, and age as parameters. The creatinine assay has traceable calibration to isotope dilution-mass spectrometry. Refer to KDIGO guidelines for clinical interpretation. In patients with unstable renal function, e.g. those with acute kidney injury, the eGFR may not accurately reflect actual GFR. Glucose [Mass/Vol] 92 mg/dL 74 - 99 mg/dL [facility] Comment on above: The [place] Diab[employer] Association (ADA) provides guidance for cutoff values for fasting glucose and random glucose. The ADA defines fasting as no caloric intake for at least 8 hours. Fasting plasma glucose results between 100 to 125 mg/dL indicate increased risk for diabetes (prediabetes). Fasting plasma glucose results greater than or equal to 126 mg/dL meet the criteria for diagnosis of diabetes. In the absence of unequivocal hyperglycemia, results should be confirmed by repeat testing. In a patient with classic symptoms of hyperglycemia or hyperglycemic crisis, random plasma glucose results greater than or equal to 200 mg/dL meet the criteria for diagnosis of diabetes. Reference: Standards of Medical Care in Diabetes 2016, [place] [employer]. Diabetes Care. 2016.39(Suppl 1). Interpretation and review of laboratory results Abnormal [facility] Potassium [Moles/Vol] 3.7 mmol/L 3.7 - 5.1 mmol/L [facility] Protein [Mass/Vol] 8.0 g/dL 6.3 - 8.0 g/dL [facility] Sodium [Moles/Vol] 139 mmol/L 136 - 144 mmol/L [facility] Urea nitrogen [Mass/Vol] 6 mg/dL Low 7 - 21 mg/dL [facility] FACTOR II:C ASSAYon 08-24-19 24 Prothrombin activity actual/normal Coag (PPP) [Relative time] 95 % 77 - 151 % [facility] FACTOR V:C ASSAYon 4 Coagulation factor V activity actual/normal Coag (PPP) [Relative time] 72 % Low 73 - 139 % [facility] FACTOR VIII:C ASSAYOrdered B y: Jane Bibi on 08-24-2023 Coagulation factor VIII activity actual/normal Coag (PPP) [Relative time] 261 % High 50 - 173 % [facility] Comment on above: The factor VIII clot table activity level is elevated. This can be observed during the acute phase response. Persistent elevation of factor VIII, however, has been shown to be a risk factor for venous thrombosis. Suggest rechecking the factor VIII level in 1-2 months. FERRITINon 08-24-2023 Ferritin [Mass/Vol] 124.0 ng/mL 14.7 - 205.1 ng/mL [facility] FOLATE, SERUMon 08-24-2023 Folate [Mass/Vol] 5.8 ng/mL 4.7 - PINF ng/mL [facility] Ferritin [Mass/Vol]on 2023 Interpretation and review of laboratory results Normal [facility] Iron and Iron binding capaci ty panelon 08-24-2023 Interpretation and review of laboratory results Abnormal [facility] Iron [Mass/Vol] 42 ug/dL 41 - 186 ug/dL [facility] Iron binding capacity [Mass/Vol] 283 ug/dL 232 - 386 ug/dL [facility] Iron/TIBC [Molar ratio] 14.8 % Low 15.0 - 57.0 % [facility] LACTATE DEHYDROGENASEOrdered By: Sandra Bassett on 08-24-2023 LDH [Catalytic activity/Vol] 233 U/L High 135 - 214 U/L [facility] Comment on above: Hemolysis present. T he origin of the hemolysis, in vitro versus an in vivo hemolytic process, cannot be distinguished via this assay alone. In vitro hemolysis may lead to non-physiological (spurious) elevation in lactate dehydrogenase (LDH) results. The result should be interpreted in context of the clinical setting and other test results. Suggest reorder as clinically indicated. LDH [Catalytic activity/Vol] Ordered By: Sandra Bassett on 08-24-2023 Interpretation and review of laboratory results Abnormal [facility] MAGNESIUMon 08-24-2023 Magnesium [Mass/Vol] 2.0 mg/dL 1.7 - 2 .3 mg/dL [facility] Magnesium [Mass/Vol]on 08-23 Interpretation and review of laboratory results Normal [facility] No Panel Informationon 08-23 Interpretation and review of laboratory results Normal [facility] PHOSPHORUS INORGANICon 08-23 Phosphate [Mass/Vol] 3.9 mg/dL 2.7 - 4 .8 mg/dL [facility] PREALBUMINon 08-24-2023 Prealbumin [Mass/Vol] 21 mg/dL 17 - 3 6 mg/dL [facility] Phosphate [Mass/Vol]on 08-23 Interpretation and review of laboratory results Normal [facility] Prealbumin [Mass/Vol]on Interpretation and review of laboratory results Normal [facility] Prothrombin activity actual/ normal Coag (PPP) [Relative time]on 08-24-2023 Interpretation and review of laboratory results Normal [facility] TOTAL CHOLESTEROLon 08-24-19 Cholesterol [Mass/Vol] 142 mg/dL NINF - 200 mg/dL [facility] Comment on above: <200 mg/dL, Desirabl e 200-239 mg/dL, Borderline high >239 mg/dL, High Reference: 1. National Cholesterol Education Program ATP III Guideline At-A-Glance Quick Desk Reference: National Heart, Lung, and Blood [place]. National Institutes of Health. 2001: NIH Publication No. 01-3305. VITAMIN B12on 08-24-2023 Cobalamin (Vitamin B12) [Mass/Vol] 283 pg/mL 232 - 1245 pg/mL [facility] Automated basophil %on 08-22 Basophils/100 WBC (Bld) 0.6 % [facility] Comment on above: Order Comment: Samia jack Type: BLOOD SPECIMEN Ordering Facility: [facility] Address: [address] [place] [address] Performed By: #### 5 7021-8 #### [facility] CLIA [id number] [address] [place] [address] 43782 Automated basophil counton 0 08-23-2023 Basophils (Bld) [#/Vol] 0.04 10*3/uL <0.11 [facility] Comment on above: Order Comment: Remingtoni marcie Type: BLOOD SPECIMEN Ordering Facility: [facility] Address: [address] [place] [address] Performed By: #### 5 7021-8 #### [facility] CLIA [id number] [address] [place] [address] 77778 Automated blood monocyte cou nton 08-23-2023 Monocytes (Bld) [#/Vol] 0.46 10*3/uL <0.87 [facility] Comment on above: Order Comment: Speci men Type: BLOOD SPECIMEN Ordering Facility: [facility] Address: [address] [place] [address] Performed By: #### 5 7021-8 #### [facility] CLIA [id number] [address] [place] [address] 69866 Automated eosinophil %on Eosinophils/100 WBC (Bld) 2.4 % [facility] Comment on above: Order Comment: Speci men Type: BLOOD SPECIMEN Ordering Facility: [facility] Address: [address] [place] [address] Performed By: #### 5 7021-8 #### [facility] CLIA [id number] [address] [place] [address] 23661 Automated monocyte %on 08-22 Monocytes/100 WBC (Bld) 6.9 % [facility] Comment on above: Order Comment: Speci men Type: BLOOD SPECIMEN Ordering Facility: [facility] Address: [address] [place] [address] Performed By: #### 5 7021-8 #### [facility] CLIA [id number] [address] [place] [address] 54859 Automated neutrophil %on Neutrophils/100 WBC (Bld) 51.6 % [facility] Comment on above: Order Comment: Speci men Type: BLOOD SPECIMEN Ordering Facility: [facility] Address: [address] [place] [address] Performed By: #### 5 7021-8 #### [facility] CLIA [id number] [address] [place] [address] 48918 Blood manual differential co mment interpretation narrativeon 08-23-2023 Manual differential comment Sukhwinder (Bld) [Interp] Auto [facility] CBC W Auto Diff Bldon 2023 Eosinophils (Bld) [#/Vol] 0.16 10*3/uL <0.46 [facility] Comment on above: Order Comment: Speci men Type: BLOOD SPECIMEN Ordering Facility: [facility] Address: [address] [place] [address] Performed By: #### 5 7021-8 #### [facility] CLIA [id number] [address] [place] [address] 01541 Immature granulocytes/100 WBC (Bld) 0.2 % [facility] Comment on above: Order Comment: Speci men Type: BLOOD SPECIMEN Ordering Facility: [facility] Address: [address] [place] [id number] Performed By: #### 5 7021-8 #### [facility] CLIA [id number] [address] [place] [address] 29053 CBC W Auto Differential pane l (Bld)on 08-23-2023 Basophils (Bld) [#/Vol] 0.04 10*3/uL [facility] Basophils/100 WBC (Bld) 0.6 % [facility] Differential cell count method Nom (Bld) Auto [facility] Eosinophils (Bld) [#/Vol] 0.16 10*3/uL [facility] Eosinophils/100 WBC (Bld) 2.4 % [facility] Erythrocyte distribution width (RBC) [Ratio] 14.6 % 11.5 - 15.0 % [facility] Hematocrit (Bld) [Volume fraction] 38.8 % 36.0 - 46.0 % [facility] Hemoglobin (Bld) [Mass/Vol] 12.2 g/dL 11.5 - 15.5 g/dL [facility] Immature granulocytes (Bld) [#/Vol] [facility] Immature granulocytes/100 WBC (Bld) 0.2 % [facility] Lymphocytes (Bld) [#/Vol] 2.55 10*3/uL [facility] Lymphocytes/100 WBC (Bld) 38.3 % [facility] MCH (RBC) [Entitic mass] 26.7 pg 26.0 - 34.0 pg [facility] MCHC (RBC) [Mass/Vol] 31.4 g/dL 30.5 - 36.0 g/dL [facility] MCV (RBC) [Entitic vol] 84.9 fL 80.0 - 100.0 fL [facility] Monocytes (Bld) [#/Vol] 0.46 10*3/uL NINF [facility] Monocytes/100 WBC (Bld) 6.9 % [facility] Neutrophils (Bld) [#/Vol] 3.43 10*3/uL [facility] Neutrophils/100 WBC (Bld) 51.6 % [facility] Nucleated RBC (Bld) [#/Vol] NINF [facility] Nucleated RBC/100 WBC (Bld) [Ratio] 0.0 % /100 WBC [facility] Platelet mean volume (Bld) [Entitic vol] 10.2 fL 9.0 - 12.7 fL [facility] Platelets (Bld) [#/Vol] 355 10*3/uL [facility] RBC (Bld) [#/Vol] 4.57 10*6/uL 3.90 - 5.20 m/uL [facility] WBC (Bld) [#/Vol] 6.65 10*3/uL [facility] Differential cell count method Nom (Bld) Auto Normal [facility] Comment on above: Order Comment: Speci men Type: BLOOD SPECIMEN Ordering Facility: [facility] Address: [address] [place] [address] Performed By: #### 5 7021-8 #### [facility] CLIA [id number] [address] [place] [address] Immature granulocytes (Bld) [#/Vol] 10*3/uL Normal <0.10 [facility] Comment on above: Order Comment: Speci men Type: BLOOD SPECIMEN Ordering Facility: [facility] Address: [address] [place] [address] Performed By: #### 5 7021-8 #### [facility] CLIA [id number] [address] [place] [address] 67797 Nucleated RBC/100 WBC (Bld) [Ratio] 0.0 /100 WBC Normal [facility] Comment on above: Order Comment: Speci men Type: BLOOD SPECIMEN Ordering Facility: [facility] Address: [address] [place] [address] Performed By: #### 5 7021-8 #### [facility] CLIA [id number] [address] [place] [address] WBC (Bld) [#/Vol] 6.65 10*3/uL Normal 3.70-11.00 [facility] Comment on above: Order Comment: Speci men Type: BLOOD SPECIMEN Ordering Facility: [facility] Address: [address] [place], [place] [address] [address] Performed By: #### 5 7021-8 #### [facility] CLIA [id number] [address] [place] [address] CNOVSPon 08-23-2023 CNOVSP Visit (SP) Office (HE[place]) ----- ARIAN FRITZ ([id number]) 1960 F Date Time Provider Department 08/23/23 4:00 PM NEVILLE YEE During your visit today, we recorded the following information about you: Temperature Pulse Respiration Blood pressure 97.6 degrees 77/minute 16/minute 138/81 Weight 52.5 kg Neville Yee MD 08/25/2023 3:06 PM Signed NAME: Arian Fritz [facility] NO.: [id number] DATE OF SERVICE: August 23, 2023 (Kirit) Referring Provider: Self Referred Consultation requested by Self Referred for an opinion regarding Niraj Childna Dominique Fritz, and my final recommendations will be communicated back to the requesting physician by way of shared medical record or letter via US mail. Additional Clinicians involved in Arian Fritz's care: DIAGNOSIS: History of NHL 2004 Abnormal weight loss. ASSESSMENT: 63 year old woman with a history of NHL diagnosed after a liver biopsy. Currently is concerned with abnormal weight loss and possible recurrence of disease. PLAN: PET/CT when approved RTC after to review scan and today's labs ____- HPI: CASE HISTORY: Reverse Chronological Order 05/11/2006 - CT CAP: Chest: there are some mild old inflammatory changes, but no adenopathy or mass is seen within the chest. No convincing change. A/P: Small hepatic abnormalities, smaller than before. No new hepatic abnormalities seen. No adenopathy. Bilateral L5 pars defects. Small hiatal hernia. No pelvis abnormality identified 09/20/2004 - CT CAP: Chest: The previously demonstrated pulmonary nodules are no longer visualized. Lungs are now clear. The enlarged mediastinal lymph nodes noted on the prior study have markedly decreased in size (largest is 7 x 8 mm) in the precarinal region. A/P: Marked decrease in size of the liver metastases. Several small hypodense lesions persist as described above. There are multiple linear areas of low attenuation within the liver probably secondary to fibrotic scars. No significant pelvis abnormality. 04/21/2004 - CT CAP: Chest: No mediastinal or axillary lymphadenopathy. A/P: Multiple low areas of attenuation in the liver have decreased in number and size compared to the study of December 30, 2003. No abnormal mass or pelvis lymphadenopathy. 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 These were also noted on 09/15/[address] and I do not see any obvious change. Small hiatal hernia. Questionable small ovarian cysts. This could be further evaluated with ultrasound. Pelvis otherwise unremarkable. 09/15/2003 - CT Chest: Multiple bilateral upper lobe nodules and mediastinal lymphadenopathy with associated evidence of metastatic liver disease and lymphadenopathy noted in the region of the celiac trunk origin. The differential diagnosis includes lymphoproliferative disorder such as lymphoma as well as metastatic disease related to a neoplasm of unknown etiology. The most likely causes would be adenocarcinoma from either the breast or GI tract. Melanoma could result in these findings. Initial Visit, August 23, 2023: Arian Fritz presents today for a Hematology and Oncology evaluation. She is joined by her daughter, Cora. She is a 63 year old female who was diagnosed with Non Hodgkin's lymphoma with metastases to the liver and lung in 2003. She completed chemotherapy in 03/2004 and has had no evidence of recurrence. She now reports unintentional weight loss - 70lbs in 3 months. Denies fever, chills, and night sweats. Endorses normal bowel movements. Her appetite has been stable, she is supplementing with Ensure drinks. Increasing memory problems recently. She has an EGD/Colonoscopy scheduled. She is a current smoker - 8-10 cigarettes a day. She had nausea, vomiting, and diarrhea while taking a magnesium supplement in the past. She has a history or COPD, CHF, and AFIB. She has not had AFIB since 2019 when she got the loop implant. She takes Eliquis for a history of CVA in 2001. She mentions a history of delirium when admitted in hospitals. ____- REVIEW OF SYSTEMS Per HPI and otherwise negative by full review of organ systems. ____- ECOG PERFORMANCE STATUS: 1 PHYSICAL EXAMINATION: Vitals: BP 138/81 Pulse 77 Temp (Src) 97.6 (Temporal) Resp 16 Wt 115 lb 11.9 oz (52.5kg) SpO2 97% Body surface area is 1.54 meters squared. Exam limited to gross visualization whe (more content not included)... Normal [facility] Cholest SerPl-mCncon 024 Cholesterol [Mass/Vol] 142 mg/dL <200 [facility] Comment on above: <200 mg/dL, Desirabl e 200-239 mg/dL, Borderline high>239 mg/dL, HighReference:1. National Cholesterol Education Program ATP III Guideline At-A-Glance Quick Desk Reference: National Heart, Lung, and Blood [place]. National Institutes of Health. 2001: [facility] Publication No. . Order Comment: Speci men Type: BLOOD SPECIMEN Ordering Facility: [facility] Address: [address] [place] [address] Result Comment: <200 mg/dL, Desirable 200-239 mg/dL, Borderline high >239 mg/dL, High Reference: 1. National Cholesterol Education Program ATP III Guideline At-A-Glance Quick Desk Reference: National Heart, Lung, and Blood [place]. National Institutes of Health. 2001: NIH Publication No. . Performed By: #### 2 276-4, 2093-3, 38855-5 #### [facility] CLIA [id number] [address] [place] [address] [id number] [place] [address] [place] Comp Metab 2000 Pnl SerPlon 08-23-2023 Albumin [Mass/Vol] 3.8 g/dL Low 3.9-4.9 [facility] Comment on above: Order Comment: Speci men Type: BLOOD SPECIMEN Ordering Facility: [facility] Address: [address] [place] [address] Performed By: #### 1 9123-9, 2532-0, 2777-1, 36481-0 #### [facility] CLIA [id number] [address] [place] [address] ALP [Catalytic activity/Vol] 123 U/L 34-123 [facility] Comment on above: Order Comment: Speci men Type: BLOOD SPECIMEN Ordering Facility: [facility] Address: [address] [place] [address] Performed By: #### 1 9123-9, 2532-0, 2777-1, 07724-6 #### [facility] CLIA [id number] [address] [place] [address] ALT [Catalytic activity/Vol] 9 U/L 7-38 [facility] Comment on above: Order Comment: Speci men Type: BLOOD SPECIMEN Ordering Facility: [facility] Address: [address] [place] [address] Performed By: #### 1 9123-9, 2532-0, 2777-1, 57349-5 #### [facility] CLIA [id number] [address] [place] [address] AST [Catalytic activity/Vol] 16 U/L 13-35 [facility] Comment on above: Order Comment: Speci men Type: BLOOD SPECIMEN Ordering Facility: [facility] Address: [address] [place] [address] Performed By: #### 1 9123-9, 2532-0, 2777-1, 81077-4 #### [facility] CLIA [id number] [address] [place] [address]803 Bilirubin [Mass/Vol] 0.4 mg/dL 0.2-1.3 [facility] Comment on above: Order Comment: Speci men Type: BLOOD SPECIMEN Ordering Facility: [facility] Address: [address] [place] [address] Performed By: #### 1 9123-9, 2532-0, 2777-1, 28894-7 #### [facility] CLIA [id number] [address] [place] [address] 55168 Calcium [Mass/Vol] 10.0 mg/dL 8.5-10.2 [facility] Comment on above: Order Comment: Speci men Type: BLOOD SPECIMEN Ordering Facility: [facility] Address: [address] [place] [address] Performed By: #### 1 9123-9, 2532-0, 2777-1, 21435-2 #### [facility] CLIA [id number] [address] [place] [address] 48445 Chloride [Moles/Vol] 103 mmol/L 98-107 [facility] Comment on above: Order Comment: Speci men Type: BLOOD SPECIMEN Ordering Facility: [facility] Address: [address] [place] [address] Performed By: #### 1 9123-9, 2532-0, 2777-1, 63416-5 #### [facility] CLIA [id number] [address] [place] [address] CO2 [Moles/Vol] 24 mmol/L 22-30 [facility] Comment on above: Order Comment: Speci men Type: BLOOD SPECIMEN Ordering Facility: [facility] Address: [address] [place] [address] Performed By: #### 1 9123-9, 2532-0, 7-1, 92025-1 #### [facility] CLIA [id number] [address] [place] [address]002 Creatinine [Mass/Vol] 0.78 mg/dL 0.58-0.96 [facility] Comment on above: Order Comment: Speci men Type: BLOOD SPECIMEN Ordering Facility: [facility] Address: [address] [place] [address] Performed By: #### 1 9123-9, 2532-0, 2777-1, 99171-6 #### [facility] CLIA [id number] [address] [place] [address] 76240 Glucose [Mass/Vol] 92 mg/dL 74-99 [facility] Comment on above: The [place] Diab[employer] Association (ADA) provides guidance for cutoff values for fasting glucose and random glucose. The ADA defines fasting as no caloric intake for at least 8 hours. Fasting plasma glucose results between 100 to 125 mg/dL indicate increased risk for diabetes (prediabetes).Fasting plasma glucose results greater than or equal to 126 mg/dL meet the criteria for diagnosis of diabetes. In the absence of unequivocal hyperglycemia, results should be confirmed by repeat testing. In a patient with classic symptoms of hyperglycemia or hyperglycemic crisis, random plasma glucose results greater than or equal to 200 mg/dL meet the criteria for diagnosis of diabetes.Reference: Standards of Medical Care in Diabetes 2016, [place] [employer]. Diabetes Care. 2016.39(Suppl 1). Order Comment: Samia jack Type: BLOOD SPECIMEN Ordering Facility: [facility] Address: [address] [place], [place] [address] Result Comment: The [place] [employer] (ADA) provides guidance for cutoff values for fasting glucose and random glucose. The ADA defines fasting as no caloric intake for at least 8 hours. Fasting plasma glucose results between 100 to 125 mg/dL indicate increased risk for diabetes (prediabetes). Fasting plasma glucose results greater than or equal to 126 mg/dL meet the criteria for diagnosis of diabetes. In the absence of unequivocal hyperglycemia, results should be confirmed by repeat testing. In a patient with classic symptoms of hyperglycemia or hyperglycemic crisis, random plasma glucose results greater than or equal to 200 mg/dL meet the criteria for diagnosis of diabetes. Reference: Standards of Medical Care in Diabetes 2016, [place] [employer]. Diabetes Care. 2016.39(Suppl 1). Performed By: #### 1 9123-9, 2532-0, 2777-1, 40741-3 #### [facility] CLIA [id number] [address] [place] [address] 34861 Potassium [Moles/Vol] 3.7 mmol/L 3.7-5.1 [facility] Comment on above: Order Comment: Samia jack Type: BLOOD SPECIMEN Ordering Facility: [facility] Address: [address] [place] [address] Performed By: #### 1 9123-9, 2532-0, 277-1, 90113-1 #### [facility] CLIA [id number] [address] [place] [address] 73654 Sodium [Moles/Vol] 139 mmol/L 136-144 [facility] Comment on above: Order Comment: Samia jack Type: BLOOD SPECIMEN Ordering Facility: [facility] Address: [address] [place] [address] Performed By: #### 1 9123-9, 2532-0, 2777-1, 47801-9 #### [facility] CLIA [id number] [address] [place] [address] 42506 Urea nitrogen [Mass/Vol] 6 mg/dL Low 7-21 [facility] Comment on above: Order Comment: Samia jack Type: BLOOD SPECIMEN Ordering Facility: [facility] Address: [address] [place] [address] Performed By: #### 1 9123-9, 2532-0, 2777-1, 44167-9 #### [facility] CLIA [id number] [address] [place] [address] 39659 Comprehensive metabolic 2000 panelon 08-23-2023 Creatinine and Glomerular filtration rate.predicted panel (S/P/Bld) 85 mL/min/1.73m??? Normal >=60 [facility] Comment on above: Order Comment: Samia jack Type: BLOOD SPECIMEN Ordering Facility: [facility] Address: [address] [place] [address] Result Comment: Pili mated Glomerular Filtration Rate (eGFR) is calculated using the 2020 CKD-EPI creatinine equation. This equation utilizes serum creatinine, sex, and age as parameters. The creatinine assay has traceable calibration to isotope dilution-mass spectrometry. Refer to KDIGO guidelines for clinical interpretation. In patients with unstable renal function, e.g. those with acute kidney injury, the eGFR may not accurately reflect actual GFR. Performed By: #### 1 9123-9, 2532-0, 2777-1, 62105-1 #### [facility] CLIA [id number] [address] [place] [address] 72750 Erythrocyte distribution wid th [Ratio] by Automated counton 08-23-2023 Erythrocyte distribution width (RBC) [Ratio] 14.6 % 11.5-15.0 [facility] Comment on above: Order Comment: Samia jack Type: BLOOD SPECIMEN Ordering Facility: [facility] Address: [address] [place] [address] Performed By: #### 5 7021-8 #### [facility] CLIA [id number] [address] [place] [address] 17664 Erythrocytes [#/volume] in B lood by Automated counton 08-23-2023 RBC (Bld) [#/Vol] 4.57 10*6/uL 3.90-5.20 [facility] Comment on above: Order Comment: Samia jack Type: BLOOD SPECIMEN Ordering Facility: [facility] Address: [address] [place] [address] Performed By: #### 5 7021-8 #### [facility] CLIA [id number] [address] [place] [address] Fact V Act/Nor PPPon 08-22- 024 Coagulation factor V activity actual/normal Coag (PPP) [Relative time] 72 % Low 73-139 [facility] Comment on above: Order Comment: Samia jack Type: BLOOD SPECIMEN Ordering Facility: [facility] Address: [address] [place] [address] Performed By: #### 2 276-4, 3, 01058-8 #### [facility] CLIA [id number] [address] [place] [address] [place] Fact VIII Act/Nor PPPon 06-0 Coagulation factor VIII activity actual/normal Coag (PPP) [Relative time] 261 % High 50-173 [facility] Comment on above: Order Comment: Samia jack Type: BLOOD SPECIMEN Ordering Facility: [facility] Address: [address] [place] [address] Result Comment: The factor VIII clottable activity level is elevated. This can be observed during the acute phase response. Persistent elevation of factor VIII, however, has been shown to be a risk factor for venous thrombosis. Suggest rechecking the factor VIII level in 1-2 months. Performed By: #### 2 276-4, 3, 02023-1 #### [facility] CLIA [id number] [address] [place] [address] [place] Ferritin SerPl-mCncon 2023 Ferritin [Mass/Vol] 124.0 ng/mL 14.7-205.1 [facility] Comment on above: Order Comment: Samia jack Type: BLOOD SPECIMEN Ordering Facility: [facility] Address: [address] [place], [place] [address] Performed By: #### 2 276-4, 2093-3, 74269-4 #### [facility] CLIA [id number] [address] [place], [place] [address] [place] Folate SerPl-mCncon 08-23-19 24 Folate [Mass/Vol] 5.8 ng/mL Normal >4.7 [facility] Comment on above: Order Comment: Speci men Type: BLOOD SPECIMEN Ordering Facility: [facility] Address: [address] [place] [address] Performed By: #### 2 276-4, 2093-3, 21042-2 #### [facility] CLIA [id number] [address] [place] [address] [place] Hematocrit [Volume Fraction] of Blood by Automated counton 08-23-2023 Hematocrit (Bld) [Volume fraction] 38.8 % 36.0-46.0 [facility] Comment on above: Order Comment: Speci men Type: BLOOD SPECIMEN Ordering Facility: [facility] Address: [address] [place] [address] Performed By: #### 5 7021-8 #### [facility] CLIA [id number] [address] [place] [address] 32715 Hemoglobin [Mass/volume] in Bloodon 08-23-2023 Hemoglobin (Bld) [Mass/Vol] 12.2 g/dL 11.5-15.5 [facility] Comment on above: Order Comment: Speci men Type: BLOOD SPECIMEN Ordering Facility: [facility] Address: [address] [place], [place] [address] Performed By: #### 5 7021-8 #### [facility] CLIA [id number] [address] [place] [address]646 Iron and Iron binding capaci ty panelon 08-23-2023 Iron/TIBC [Molar ratio] 14.8 % Low 15.0-57.0 [facility] Comment on above: Order Comment: Speci men Type: BLOOD SPECIMEN Ordering Facility: [facility] Address: [address] [place] [address] Performed By: #### 2 276-4, 2092-05, 65210-0 #### [facility] CLIA [id number] [address] [place] [address] [place] Iron binding capacity [Mass/ volume] in Serum or Plasmaon 08-23-2023 Iron binding capacity [Mass/Vol] 283 ug/dL 232-386 [facility] Comment on above: Order Comment: Speci men Type: BLOOD SPECIMEN Ordering Facility: [facility] Address: [address] [place] [address] Performed By: #### 2 276-4, 2092-05, 33240-1 #### [facility] CLIA [id number] [address] [place] [address] [place] Iron saturation [Mass Fracti on] in Serum or Plasmaon 08-23-2023 Iron saturation [Mass fraction] 14.8 % Low 15.0-57.0 [facility] Iron+TIBC Pnl SerPlon 2023 Iron [Mass/Vol] 42 ug/dL 41-186 [facility] Comment on above: Order Comment: Samia jack Type: BLOOD SPECIMEN Ordering Facility: [facility] Address: [address] [place] [address] Performed By: #### 2 276-4, 2092-05, 68131-0 #### [facility] CLIA [id number] [address] [place] [address] [place] LDH SerPl-cCncon 08-23-2023 LDH [Catalytic activity/Vol] 233 U/L High 135-214 [facility] Comment on above: Hemolysis present. T he origin of the hemolysis, in vitro versus an in vivo hemolytic process, cannot be distinguished via this assay alone. In vitro hemolysis may lead to non-physiological (spurious) elevation in lactate dehydrogenase (LDH) results. The result should be interpreted in context of the clinical setting and other test results. Suggest reorder as clinically indicated. Order Comment: Speci men Type: BLOOD SPECIMEN Ordering Facility: [facility] Address: [address] [place] [address] Result Comment: Hemo lysis present. The origin of the hemolysis, in vitro versus an in vivo hemolytic process, cannot be distinguished via this assay alone. In vitro hemolysis may lead to non-physiological (spurious) elevation in lactate dehydrogenase (LDH) results. The result should be interpreted in context of the clinical setting and other test results. Suggest reorder as clinically indicated. Performed By: #### 1 9123-9, 2532-0, 2777-1, 21751-4 #### [facility] CLIA [id number] [address] [place] [address]1439 Leukocytes [#/volume] correc arin for nucleated erythrocytes in Blood by Automated counon 08-23-2023 WBC corrected for nucl RBC Auto (Bld) [#/Vol] 6.65 k/uL 3.70-11.00 [facility] Lymphocytes [#/volume] in Bl ood by Automated counton 08-23-2023 Lymphocytes (Bld) [#/Vol] 2.55 10*3/uL 1.00-4.00 [facility] Comment on above: Order Comment: Samia jack Type: BLOOD SPECIMEN Ordering Facility: [facility] Address: [address] [place] [address] Performed By: #### 5 7021-8 #### [facility] CLIA [id number] [address] [place] [address] 03955 Lymphocytes/100 leukocytes i n Blood by Automated counton 08-23-2023 Lymphocytes/100 WBC (Bld) 38.3 % [facility] Comment on above: Order Comment: Samia jack Type: BLOOD SPECIMEN Ordering Facility: [facility] Address: [address] [place] [address] Performed By: #### 5 7021-8 #### [facility] CLIA [id number] [address] [place] [address]193 MCH [Entitic mass] by Automa arin counton 08-23-2023 MCH (RBC) [Entitic mass] 26.7 pg 26.0-34.0 [facility] Comment on above: Order Comment: Speci men Type: BLOOD SPECIMEN Ordering Facility: [facility] Address: [address] [place], [place] [address] Performed By: #### 5 7021-8 #### [facility] CLIA [id number] [address] [place] [address] 85530 MCHC [Mass/volume] by Automa arin counton 08-23-2023 MCHC (RBC) [Mass/Vol] 31.4 g/dL 30.5-36.0 [facility] Comment on above: Order Comment: Speci men Type: BLOOD SPECIMEN Ordering Facility: [facility] Address: [address] [place], [place] [address] Performed By: #### 5 7021-8 #### [facility] CLIA [id number] [address] [place] [address] 09866 MCV [Entitic volume] by Auto mated counton 08-23-2023 MCV (RBC) [Entitic vol] 84.9 fL 80.0-100.0 [facility] Comment on above: Order Comment: Speci men Type: BLOOD SPECIMEN Ordering Facility: [facility] Address: [address] [place], [place] [address] Performed By: #### 5 7021-8 #### [facility] CLIA [id number] [address] [place] [address] 60458 Magnesium SerPl-mCncon 08-22 Magnesium [Mass/Vol] 2.0 mg/dL 1.7-2.3 [facility] Comment on above: Order Comment: Speci men Type: BLOOD SPECIMEN Ordering Facility: [facility] Address: [address] [place] [address] Performed By: #### 1 9123-9, 2532-0, 2777-1, 62480-4 #### [facility] CLIA [id number] [address] [place] [address] 88233 Neutrophils [#/volume] in Bl ood by Automated counton 08-23-2023 Neutrophils (Bld) [#/Vol] 3.43 10*3/uL 1.45-7.50 [facility] Comment on above: Order Comment: Speci marcie Type: BLOOD SPECIMEN Ordering Facility: [facility] Address: [address] [place] [address] Performed By: #### 5 7021-8 #### [facility] CLIA [id number] [address] [place] [address]322 No Panel Informationon 08-22 Coagulation Factor V Activity 72 % Low 73-139 [facility] Coagulation Factor VIII Activity 261 % High 50-173 [facility] Comment on above: The factor VIII clot table activity level is elevated. This can be observed during the acute phase response. Persistent elevation of factor VIII, however, has been shown to be a risk factor for venous thrombosis. Suggest rechecking the factor VIII level in 1-2 months. Estimated GFR (CKD-EPI) 85 mL/min/1.73m??? >=60 [facility] Comment on above: Estimated Glomerular Filtration Rate (eGFR) is calculated using the 2020 CKD-EPI creatinine equation. This equation utilizes serum creatinine, sex, and age as parameters. The creatinine assay has traceable calibration to isotope dilution-mass spectrometry. Refer to KDIGO guidelines for clinical interpretation. In patients with unstable renal function, e.g. those with acute kidney injury, the eGFR may not accurately reflect actual GFR. Folate 5.8 ng/mL >4.7 [facility] Immature Granulocyte # (Auto) <0.03 k/uL <0.10 [facility] Phosphorus Level 3.9 mg/dL 2.7-4.8 [facility] Nucleated erythrocytes [#/vo lume] in Blood by Automated counton 08-23-2023 Nucleated RBC (Bld) [#/Vol] 10*3/uL <0.01 [facility] Comment on above: Order Comment: Samia jack Type: BLOOD SPECIMEN Ordering Facility: [facility] Address: [address] [place] [address] Performed By: #### 5 7021-8 #### [facility] CLIA [id number] [address] [place] [address]28 Nucleated erythrocytes [Pres ence] in Blood by Automated counton 08-23-2023 Nucleated RBC Auto Ql (Bld) 0.0 /100{WBC} [facility] Phosphate SerPl-mCncon 08-22 Phosphate [Mass/Vol] 3.9 mg/dL Normal 2.7-4.8 [place] Comment on above: Order Comment: Speci men Type: BLOOD SPECIMEN Ordering Facility: [facility] Address: [address] [place], [place] [address] Performed By: #### 1 9123-9, 2532-0, 2777-1, 94284-3 #### [facility] CLIA [id number] [address] [place] [address] 72564 Platelet mean volume [Entiti c volume] in Blood by Automated counton 08-23-2023 Platelet mean volume (Bld) [Entitic vol] 10.2 fL 9.0-12.7 [facility] Comment on above: Order Comment: Speci men Type: BLOOD SPECIMEN Ordering Facility: [facility] Address: [address] [place] [address] Performed By: #### 5 7021-8 #### [facility] CLIA [id number] [address] [place] [address] 57160 Platelets [#/volume] in Bloo d by Automated counton 08-23-2023 Platelets (Bld) [#/Vol] 355 10*3/uL 150-400 [facility] Comment on above: Order Comment: Speci men Type: BLOOD SPECIMEN Ordering Facility: [facility] Address: [address] [place] [address] Performed By: #### 5 7021-8 #### [facility] CLIA [id number] [address] [place] [address] 61443 Prealb SerPl-mCncon 08-23-19 24 Prealbumin [Mass/Vol] 21 mg/dL 17-36 [facility] Comment on above: Order Comment: Speci men Type: BLOOD SPECIMEN Ordering Facility: [facility] Address: [address] [place] [address] Performed By: #### 2 276-4, 2092-3, 55408-7 #### [facility] CLIA [id number] [address] [place] [address] [place] Protein [Mass/volume] in Ser um or Plasmaon 08-23-2023 Protein [Mass/Vol] 8.0 g/dL 6.3-8.0 [facility] Comment on above: Order Comment: Speci men Type: BLOOD SPECIMEN Ordering Facility: [facility] Address: [address] [place] [address] Performed By: #### 1 9123-9, 2532-0, 2777-1, 71157-5 #### [facility] CLIA [id number] [address] [place] [address] 65178 Prothrombin activity actual/ normal ratio in platelet poor plasma by coagulation assayon 08-23-2023 Prothrombin activity actual/normal Coag (PPP) [Relative time] 95 % 77-151 [facility] Comment on above: Order Comment: Speci men Type: BLOOD SPECIMEN Ordering Facility: [facility] Address: [address] [place] [id number] Performed By: #### 2 276-4, 2092-3, 13955-5 #### [facility] CLIA [id number] [address] [place] [address] [place] Serum or plasma anion gap de terminationon 08-23-2023 Anion gap [Moles/Vol] 12 mmol/L 8-15 [facility] Comment on above: Order Comment: Speci men Type: BLOOD SPECIMEN Ordering Facility: [facility] Address: [address] [place] [address] Performed By: #### 1 9123-9, 2532-0, 2777-1, 93616-1 #### [facility] CLIA [id number] [address] [place] [address] 33957 Vit B12 SerPl-mCncon 024 Cobalamin (Vitamin B12) [Mass/Vol] 283 pg/mL 232-1245 [facility] Comment on above: Order Comment: Speci men Type: BLOOD SPECIMEN Ordering Facility: [facility] Address: [address] [place] [address] Performed By: #### 2 276-4, 2093-3, 02830-3 #### [facility] CLIA [id number] [address] [place] [address] [id number] STATES OF [facility] Alanine aminotransferase [En zymatic activity/volume] in Serum or PlasmaOrdered By: Ed [place] on 08-15-2023 ALT [Catalytic activity/Vol] 8 U/L Normal 7-52 [facility] Comment on above: Performed By: #### T 4F, TSH3 wRFLX, LIPID, MG, CBC, CMP #### [facility] [address] [id number] [facility] Albumin [Mass/volume] in Ser um or Plasma by Bromocresol green (BCG) dye binding methoOrdered By: Ed [place] on 08-15-2023 Albumin BCG dye [Mass/Vol] 3.3 g/dL Low 3.5-5.7 [facility] Alkaline phosphatase [Enzyma tic activity/volume] in Serum or PlasmaOrdered By: Ed [place] on 08-15-2023 ALP [Catalytic activity/Vol] 95 U/L Normal 34-104 [facility] Comment on above: Performed By: #### T 4F, TSH3 wRFLX, LIPID, MG, CBC, CMP #### [facility] [address] [id number] [place] Aspartate aminotransferase [ Enzymatic activity/volume] in Serum or PlasmaOrdered By: Ed [place] on 08-15-2023 AST [Catalytic activity/Vol] 12 U/L Low 13-39 [facility] Comment on above: Performed By: #### T 4F, TSH3 wRFLX, LIPID, MG, CBC, CMP #### [facility] [address] [place] [address] [place] Automated basophil %Ordered By: Ed [place] on 08-15-2023 Basophils/100 WBC (Bld) 0.8 % Normal . [facility] Comment on above: Performed By: #### T 4F, TSH3 wRFLX, LIPID, MG, CBC, CMP #### [address] Automated basophil countOrde red By: Ed [place] on 08-15-2023 Basophils (Bld) [#/Vol] 0.0 10*3/uL Normal 0.0-0.2 [facility] Comment on above: Result Comment: PERF ORMED BY: [place] [address] PATHOLOGIST SENIOR NURSE MANAGER ROSANNA MARIN M.D. Performed By: #### T 4F, TSH3 wRFLX, LIPID, MG, CBC, CMP #### [address] Automated blood monocyte cou ntOrdered By: Ed [place] on 08-15-2023 Monocytes (Bld) [#/Vol] 0.5 10*3/uL Normal 0.0-0.8 [facility] Comment on above: Performed By: #### T 4F, TSH3 wRFLX, LIPID, MG, CBC, CMP #### [address] Automated eosinophil %Ordere d By: Ed [place] on 08-15-2023 Eosinophils/100 WBC (Bld) 3.2 % Normal . [facility] Comment on above: Performed By: #### T 4F, TSH3 wRFLX, LIPID, MG, CBC, CMP #### [address] Automated eosinophil countOr dered By: Ed [place] on 08-15-2023 Eosinophils (Bld) [#/Vol] 0.2 10*3/uL Normal 0.0-0.45 [facility] Comment on above: Performed By: #### T 4F, TSH3 wRFLX, LIPID, MG, CBC, CMP #### [address] Automated monocyte %Ordered By: Ed [place] on 08-15-2023 Monocytes/100 WBC (Bld) 9.1 % Normal . [facility] Comment on above: Performed By: #### T 4F, TSH3 wRFLX, LIPID, MG, CBC, CMP #### [facility] [address] Automated neutrophil %Ordere d By: Edpretty [place] on 08-15-2023 Neutrophils/100 WBC (Bld) 54.9 % Normal . [facility] Comment on above: Performed By: #### T 4F, TSH3 wRFLX, LIPID, MG, CBC, CMP #### [facility] [address] Bilirubin.total [Mass/volume ] in Serum or PlasmaOrdered By: Ed [place] on 08-15-2023 Bilirubin [Mass/Vol] 0.5 mg/dL Normal 0.3-1.0 [facility] Comment on above: Performed By: #### T 4F, TSH3 wRFLX, LIPID, MG, CBC, CMP #### [facility] [address] [place] [address] Calcium [Mass/volume] in Ser um or PlasmaOrdered By: Ed Law[place] on 08-15-2023 Calcium [Mass/Vol] 9.3 mg/dL Normal 8.6-10.3 [facility] Comment on above: Performed By: #### T 4F, TSH3 wRFLX, LIPID, MG, CBC, CMP #### [facility] [address] [place] [address] Carbon dioxide, total [Moles /volume] in Serum or PlasmaOrdered By: Ed Lawton on 08-15-2023 CO2 [Moles/Vol] 29.4 mmol/L Normal 21.0-31.0 [facility] Comment on above: Performed By: #### T 4F, TSH3 wRFLX, LIPID, MG, CBC, CMP #### [facility] [address] [place] [address] [place] Chloride [Moles/volume] in S yari or PlasmaOrdered By: Ed Lawton on 08-15-2023 Chloride [Moles/Vol] 100 mmol/L Normal 98-107 [facility] Comment on above: Performed By: #### T 4F, TSH3 wRFLX, LIPID, MG, CBC, CMP #### [facility] [address] Cholesterol [Mass/volume] in Serum or PlasmaOrdered By: Ed Lawton on 08-15-2023 Cholesterol [Mass/Vol] 121 mg/dL Low 140-200 [facility] Comment on above: Chol less than 200 m g/dl low riskChol 201-239 mg/dl borderline riskChol 240 mg/dl and greater high risk Result Comment: Chol less than 200 mg/dl low risk Chol 201-239 mg/dl borderline risk Chol 240 mg/dl and greater high risk Performed By: #### T 4F, TSH3 wRFLX, LIPID, MG, CBC, CMP #### [facility] [address] [phone] [facility] Cholesterol in LDL Calc [Mas s/Vol]Ordered By: Ed Lawton on 08-15-2023 Cholesterol in LDL [Mass/Vol] 67 mg/dL 0-100 [facility] Comment on above: LDL ATP III CLASSIFI CATIONLDL less than 100 mg/dL OptimalLDL 100-129 mg/dL Near or above optimalLDL 130-159 mg/dL Borderline highLDL 160-189 mg/dL HighLDL greater than 189 mg/dL Very high Cholesterol in VLDL Calc [Ma ss/Vol]Ordered By: Ed Lawton on 08-15-2023 Cholesterol in VLDL [Mass/Vol] 17 mg/dL [facility] Complete Blood Count Auto Di ffon 08-15-2023 Mean Corpuscular HGB Conc 32.7 g/dL Normal 32.0-35.0 [facility] Comment on above: Performed By: #### T 4F, TSH3 wRFLX, LIPID, MG, CBC, CMP #### [facility] [address] NRBC% 0.0 /100{WBC} Normal 0-0.5 [facility] Comment on above: Performed By: #### T 4F, TSH3 wRFLX, LIPID, MG, CBC, CMP #### [facility] [address] [place] [id number] [facility] Comprehensive Metabolic Pane merlin 08-15-2023 Albumin [Mass/Vol] 3.3 g/dL Low 3.5-5.7 [facility] Comment on above: Performed By: #### T 4F, TSH3 wRFLX, LIPID, MG, CBC, CMP #### [address] GFR/1.73 sq M.predicted MDRD (S/P/Bld) [Vol rate/Area] mL/min/{1.73_m2} Normal [facility] Comment on above: Performed By: #### T 4F, TSH3 wRFLX, LIPID, MG, CBC, CMP #### [address] Creatinine [Mass/volume] in Serum or PlasmaOrdered By: Ed Lawton on 08-15-2023 Creatinine [Mass/Vol] 0.63 mg/dL Normal 0.60-1.20 [facility] Comment on above: Performed By: #### T 4F, TSH3 wRFLX, LIPID, MG, CBC, CMP #### [address] Erythrocyte distribution wid th [Ratio] by Automated countOrdered By: Ed Lawton on 08-15-2023 Erythrocyte distribution width (RBC) [Ratio] 14.7 % Normal 11.9-15.3 [facility] Comment on above: Performed By: #### T 4F, TSH3 wRFLX, LIPID, MG, CBC, CMP #### [place] [address] [place] Erythrocytes [#/volume] in B lood by Automated countOrdered By: Ed Lawton on 08-15-2023 RBC (Bld) [#/Vol] 4.29 10*6/uL Normal 3.60-5.00 [facility] Comment on above: Performed By: #### T 4F, TSH3 wRFLX, LIPID, MG, CBC, CMP #### [place] [address] [place] Glucose [Mass/volume] in Ser um or PlasmaOrdered By: Ed Lawton on 08-15-2023 Glucose [Mass/Vol] 85 mg/dL Normal 70-100 [facility] Comment on above: ADA recommended refe rence rangeRandom Glucose Reference Range is dependent on time and content of last meal. Glucose of more than 200 mg/dL in a nonstressed, ambulatory subject supports the diagnosis of Diabetes Mellitus. Result Comment: [place] om Glucose Reference Range is dependent on time and content of last meal. Glucose of more than 200 mg/dL in a nonstressed, ambulatory subject supports the diagnosis of Diabetes Mellitus. ADA recommended reference range Performed By: #### T 4F, TSH3 wRFLX, LIPID, MG, CBC, CMP #### [facility] [address] [place] [address] Hematocrit [Volume Fraction] of Blood by Automated countOrdered By: Ed Lawton on 08-15-2023 Hematocrit (Bld) [Volume fraction] 35.7 % Normal 34.0-46.4 [facility] Comment on above: Performed By: #### T 4F, TSH3 wRFLX, LIPID, MG, CBC, CMP #### [address] Hemoglobin [Mass/volume] in BloodOrdered By: Ed Lawton on 08-15-2023 Hemoglobin (Bld) [Mass/Vol] 11.7 g/dL Low 11.8-15.4 [facility] Comment on above: Performed By: #### T 4F, TSH3 wRFLX, LIPID, MG, CBC, CMP #### [facility] [address] [place] [address] Leukocytes [#/volume] correc arin for nucleated erythrocytes in Blood by Automated counOrdered By: Ed Lawton on 08-15-2023 WBC corrected for nucl RBC Auto (Bld) [#/Vol] 5.9 10*3/uL 3.8-11.6 [facility] Leukocytes [#/volume] in Blo od by Automated countOrdered By: Ed Lawton on 08-15-2023 WBC (Bld) [#/Vol] 5.9 10*3/uL Normal 3.8-11.6 [facility] Comment on above: Performed By: #### T 4F, TSH3 wRFLX, LIPID, MG, CBC, CMP #### [facility] [address] Lipid Panelon 08-15-2023 LDL Cholesterol,Calculated 67 mg/dL Normal 0-100 [facility] Comment on above: Result Comment: LDL ATP III CLASSIFICATION LDL less than 100 mg/dL Optimal LDL 100-129 mg/dL Near or above optimal LDL 130-159 mg/dL Borderline high LDL 160-189 mg/dL High LDL greater than 189 mg/dL Very high Performed By: #### T 4F, TSH3 wRFLX, LIPID, MG, CBC, CMP #### [facility] [address] Triglyceride w/Reflex 88 mg/dL Normal 0-149 [facility] Comment on above: Result Comment: TRIG ATP III CLASSIFICATION TRIG less than 150 mg/dL Normal TRIG 150-199 mg/dL Borderline high TRIG 200-500 mg/dL High TRIG greater than 500 mg/dL Very high Standard traceable to the Center for Disease Conrtrol and Prevention (CDC) test method. Performed By: #### T 4F, TSH3 wRFLX, LIPID, MG, CBC, CMP #### [facility] [address] VLDL CHOLESTEROL 17 mg/dL Normal [facility] Comment on above: Performed By: #### T 4F, TSH3 wRFLX, LIPID, MG, CBC, CMP #### [facility] [address] [place] [address] [place] Lymphocytes [#/volume] in Bl ood by Automated countOrdered By: Ed Lawton on 08-15-2023 Lymphocytes (Bld) [#/Vol] 1.9 10*3/uL Normal 1.00-4.8 [facility] Comment on above: Performed By: #### T 4F, TSH3 wRFLX, LIPID, MG, CBC, CMP #### [facility] [address] [place] [address] [place] Lymphocytes/100 leukocytes i n Blood by Automated countOrdered By: Ed Lawton on 08-15-2023 Lymphocytes/100 WBC (Bld) 32.0 % Normal . [facility] Comment on above: Performed By: #### T 4F, TSH3 wRFLX, LIPID, MG, CBC, CMP #### [address] MCH [Entitic mass] by [place] arin countOrdered By: Ed Lawton on 08-15-2023 MCH (RBC) [Entitic mass] 27.2 pg Normal 24.7-34.3 [facility] Comment on above: Performed By: #### T 4F, TSH3 wRFLX, LIPID, MG, CBC, CMP #### [address] MCHC Auto (RBC) [Mass/Vol]Or dered By: Ed Lawton on 08-15-2023 MCHC (RBC) [Mass/Vol] 32.7 g/dL 32.0-35.0 [facility] MCV [Entitic volume] by Auto mated countOrdered By: Ed Lawton on 08-15-2023 MCV (RBC) [Entitic vol] 83.3 fL Normal 80-100 [facility] Comment on above: Performed By: #### T 4F, TSH3 wRFLX, LIPID, MG, CBC, CMP #### [address] Magnesium [Mass/volume] in S yari or PlasmaOrdered By: Ed Lawton on 08-15-2023 Magnesium [Mass/Vol] 1.8 mg/dL Low 1.9-2.7 [facility] Comment on above: Performed By: #### T 4F, TSH3 wRFLX, LIPID, MG, CBC, CMP #### [facility] [address] [place] [address] Neutrophils [#/volume] in Bl ood by Automated countOrdered By: Ed Lawton on 08-15-2023 Neutrophils (Bld) [#/Vol] 3.3 10*3/uL Normal 1.8-7.7 [facility] Comment on above: Performed By: #### T 4F, TSH3 wRFLX, LIPID, MG, CBC, CMP #### [place] [address] No Panel InformationOrdered By: Ed Jered on 08-15-2023 Estimated GFR (CKD-EPI) > 60.0 mL/Min [facility] Creatinine Clearance (Chem N/A [facility] Nucleated erythrocytes [Pres ence] in Blood by Automated countOrdered By: Ed Jered on 08-15-2023 Nucleated RBC Auto Ql (Bld) 0.0 /100{WBC} 0-0.5 [facility] Platelet mean volume [Entiti c volume] in Blood by Automated countOrdered By: Ed Lawton on 08-15-2023 Platelet mean volume (Bld) [Entitic vol] 8.4 fL Normal 6.3-10.7 [facility] Comment on above: Performed By: #### T 4F, TSH3 wRFLX, LIPID, MG, CBC, CMP #### [address] Platelets [#/volume] in Bloo d by Automated countOrdered By: Ed Lawton on 08-15-2023 Platelets (Bld) [#/Vol] 364 10*3/uL Normal 150-450 [facility] Comment on above: Performed By: #### T 4F, TSH3 wRFLX, LIPID, MG, CBC, CMP #### [place] [address] [place] Potassium [Moles/volume] in Serum or PlasmaOrdered By: Ed Lawton on 08-15-2023 Potassium [Moles/Vol] 3.9 mmol/L Normal 3.5-5.1 [facility] Comment on above: Performed By: #### T 4F, TSH3 wRFLX, LIPID, MG, CBC, CMP #### [facility] [address] [place] [address] [place] Protein [Mass/volume] in Ser um or PlasmaOrdered By: Ed Lawton on 08-15-2023 Protein [Mass/Vol] 6.8 g/dL Normal 6.4-8.9 [facility] Comment on above: Performed By: #### T 4F, TSH3 wRFLX, LIPID, MG, CBC, CMP #### [facility] [address] Serum globulin measurement b y calculation (mass/volume)Ordered By: Ed Lawton on 08-15-2023 Globulin (S) [Mass/Vol] 3.5 g/dL [facility] Comment on above: Performed By: #### T 4F, TSH3 wRFLX, LIPID, MG, CBC, CMP #### [facility] [address] [place] [address] Serum or plasma albumin/glob ulin mass ratioOrdered By: Ed Lawton on 08-15-2023 Albumin/Globulin [Mass ratio] 0.9 {ratio} [facility] Comment on above: Performed By: #### T 4F, TSH3 wRFLX, LIPID, MG, CBC, CMP #### [address] Serum or plasma anion gap de terminationOrdered By: Ed Lawton on 08-15-2023 Anion gap [Moles/Vol] 11.5 mmol/L Normal 6.0-15.0 [facility] Comment on above: Performed By: #### T 4F, TSH3 wRFLX, LIPID, MG, CBC, CMP #### [facility] [address] [place] [address] Serum or plasma high density lipoprotein (HDL) cholesterol measurementOrdered By: Ed Lawton on 08-15-2023 Cholesterol in HDL [Mass/Vol] 36 mg/dL Normal 23-92 [facility] Comment on above: HDL CHOL ATP-III CLA SSIFICATION Cardiovascular RiskHDL > or equal to 60 mg/dL LOWHDL < 40 mg/dL HIGH Result Comment: HDL CHOL ATP-III CLASSIFICATION Cardiovascular Risk HDL > or equal to 60 mg/dL LOW HDL < 40 mg/dL HIGH Performed By: #### T 4F, TSH3 wRFLX, LIPID, MG, CBC, CMP #### [facility] [address] [place] [address] Serum or plasma total choles terol/high density lipoprotein (HDL) cholesterol mass ratOrdered By: Ed Lawton on 08-15-2023 Cholesterol.total/Chol esterol in HDL [Mass ratio] 3.4 {ratio} Normal <5.0 [facility] Comment on above: Performed By: #### T 4F, TSH3 wRFLX, LIPID, MG, CBC, CMP #### [address] Sodium [Moles/volume] in Ser um or PlasmaOrdered By: Ed Lawton on 08-15-2023 Sodium [Moles/Vol] 137 mmol/L Normal 136-145 [facility] Comment on above: Performed By: #### T 4F, TSH3 wRFLX, LIPID, MG, CBC, CMP #### [address] Thyroid Stim Hormone w/Rflxo n 08-15-2023 Thyroid Stim Hormone w/Rflx 0.28 u[iU]/mL Low 0.45-5.33 [facility] Comment on above: Result Comment: PERF ORMED BY: [place] [address] PATHOLOGIST SENIOR NURSE MANAGER ROSANNA MARIN M.D. Performed By: #### T 4F, TSH3 wRFLX, LIPID, MG, CBC, CMP #### [address] Thyrotropin [Units/volume] i n Serum or PlasmaOrdered By: Ed Lawton on 08-15-2023 TSH Qn 0.28 m[IU]/L Low 0.45-5.33 [facility] Thyroxine (T4) free [Mass/vo lume] in Serum or PlasmaOrdered By: Ed Lawton on 08-15-2023 Free T4 [Mass/Vol] 1.22 ng/dL High 0.61-1.12 [facility] Comment on above: Performed By: #### T 4F, TSH3 wRFLX, LIPID, MG, CBC, CMP #### [address] Triglyceride [Mass/volume] i n Serum or PlasmaOrdered By: Ed Lawton on 08-15-2023 Triglyceride [Mass/Vol] 88 mg/dL 0-149 [facility] Comment on above: TRIG ATP III CLASSIF ICATIONTRIG less than 150 mg/dL NormalTRIG 150-199 mg/dL Borderline highTRIG 200-500 mg/dL High TRIG greater than 500 mg/dL Very highStandard traceable to the Center for Disease Conrtrol and Prevention (CDC) test method. Urea nitrogen [Mass/volume] in Serum or PlasmaOrdered By: Ed Lawton on 08-15-2023 Urea nitrogen [Mass/Vol] 10 mg/dL Normal 7-25 [facility] Comment on above: Performed By: #### T 4F, TSH3 wRFLX, LIPID, MG, CBC, CMP #### [facility] [address] Basophils Auto (Bld) [#/Vol] on 05-16-2023 Basophils (Bld) [#/Vol] 0.0 10 3/uL 0.0-0.1 [facility] Basophils/100 WBC Auto (Bld) on 05-16-2023 Basophils/100 WBC (Bld) 0.3 % 0.2-2.0 [facility] Eosinophils/100 WBC Auto (Bl d)on 05-16-2023 Eosinophils/100 WBC (Bld) 1.5 % 0.9-7.0 [facility] Erythrocyte distribution wid th Auto (RBC) [Ratio]on 05-16-2023 Erythrocyte distribution width (RBC) [Ratio] 13.8 % 11.0-15.0 [facility] Estimated glomerular filtrat ion rate (GFR) non- Americanon 05-16-2023 GFR/1.73 sq M.predicted among non-blacks MDRD (S/P/Bld) [Vol rate/Area] mL/min/{1.73_m2} >=60 [facility] Globulin Calc (S) [Mass/Vol] on 05-16-2023 Globulin (S) [Mass/Vol] 4.7 g/dL [facility] Hematocrit Auto (Bld) [Volum e fraction]on 05-16-2023 Hematocrit (Bld) [Volume fraction] 41.2 % 36.0-48.0 [facility] Hemoglobin [Mass/volume] in Bloodon 05-16-2023 Hemoglobin (Bld) [Mass/Vol] 13.2 g/dL 12.0-16.0 [facility] - Chemistry and C hemistry - challengeon 05-16-2023 Albumin [Mass/Vol] 3.0 g/dL 3.4-5.0 [facility] ALP [Catalytic activity/Vol] 97 U/L 46-116 [facility] ALT [Catalytic activity/Vol] 16 U/L 14-59 [facility] AST [Catalytic activity/Vol] 83 U/L 15-37 [facility] Bilirubin [Mass/Vol] 0.4 mg/dL 0.2-1.0 [facility] Calcium [Mass/Vol] 8.7 mg/dL 8.5-10.1 [facility] Chloride [Moles/Vol] 99 mmol/L 98-107 [facility] CO2 [Moles/Vol] 34.0 mmol/L 21.0-32.0 [facility] Creatinine [Mass/Vol] 0.83 mg/dL 0.55-1.02 [facility] GFR/1.73 sq M.predicted MDRD (S/P/Bld) [Vol rate/Area] mL/min/{1.73_m2} >=60 [facility] Glucose [Mass/Vol] 88 mg/dL 74-106 [facility] Potassium [Moles/Vol] 2.9 mmol/L 3.5-5.1 [facility] Comment on above: RESULTS CALLED TO [facility]ONIA Protein [Mass/Vol] 7.7 g/dL 6.4-8.2 [facility] Sodium [Moles/Vol] 140 mmol/L 136-145 [facility] TSH Qn 0.571 m[IU]/L 0.358-3.74 0 [facility] Urea nitrogen [Mass/Vol] 6.0 mg/dL 7.0-18.0 [facility] Urea nitrogen/Creatinine [Mass ratio] 7.2 mg/mg [facility] - Hematology and Cell countson 05-16-2023 Immature granulocytes/100 WBC (Bld) 0.2 % 0.0-0.5 [facility] Leukocytes [#/volume] correc arin for nucleated erythrocytes in Blood by Automated counon 05-16-2023 WBC corrected for nucl RBC Auto (Bld) [#/Vol] 6.1 10 3/uL 4.0-11.0 [facility] Lymphocytes Auto (Bld) [#/Vo l]on 05-16-2023 Lymphocytes (Bld) [#/Vol] 2.2 10 3/uL 1.2-3.8 [facility] Lymphocytes/100 WBC Auto (Bl d)on 05-16-2023 Lymphocytes/100 WBC (Bld) 36.4 % 20.5-60.0 [facility] MCH Auto (RBC) [Entitic mass ]on 05-16-2023 MCH (RBC) [Entitic mass] 28.6 pg 26.7-34.0 [facility] MCHC Auto (RBC) [Mass/Vol]on 05-16-2023 MCHC (RBC) [Mass/Vol] 32.0 g/dL 29.9-35.2 [facility] MCV Auto (RBC) [Entitic vol] on 05-16-2023 MCV (RBC) [Entitic vol] 89.4 fL 81.0-99.0 [facility] Monocytes Auto (Bld) [#/Vol] on 05-16-2023 Monocytes (Bld) [#/Vol] 0.5 10 3/uL 0.3-0.8 [facility] Monocytes/100 WBC Auto (Bld) on 05-16-2023 Monocytes/100 WBC (Bld) 7.8 % 1.7-12.0 [facility] Neutrophils Auto (Bld) [#/Vo l]on 05-16-2023 Neutrophils (Bld) [#/Vol] 3.3 10 3/uL 1.4-6.5 [facility] Neutrophils/100 WBC Auto (Bl d)on 05-16-2023 Neutrophils/100 WBC (Bld) 53.8 % 43.0-75.0 [facility] No Panel Informationon 05-16 Eosinophils # (Auto) 0.1 10 3/uL 0.0-0.7 [facility] Immature Granulocyte # (Auto) 0.01 10 3/uL 0.00-0.03 [facility] Platelet mean volume Auto (B ld) [Entitic vol]on 05-16-2023 Platelet mean volume (Bld) [Entitic vol] 10.7 fL 9.5-13.5 [facility] Platelets Auto (Bld) [#/Vol] on 05-16-2023 Platelets (Bld) [#/Vol] 296 10 3/uL 150-450 [facility] RBC Auto (Bld) [#/Vol]on RBC (Bld) [#/Vol] 4.61 10 6/uL 4.20-5.40 [facility] Serum or plasma albumin/glob ulin mass ratioon 05-16-2023 Albumin/Globulin [Mass ratio] 0.6 {ratio} [facility] Serum or plasma anion gap de terminationon 05-16-2023 Anion gap [Moles/Vol] 9.9 mmol/L [facility] PROF CHEM 8 (BAS METB)on Anion gap [Moles/Vol] 14.7 mmol/L Normal [facility] Comment on above: Performed By: #### L NATALIIA [id number] #### [facility] [address] [place] [address] Dr. Meaghan Gannon Calcium [Mass/Vol] 9.3 mg/dL Normal 8.5-10.1 [facility] Comment on above: Performed By: #### L NATALIIA [id number] #### [facility] [address] [address] [address] Meaghan Gannon Chloride [Moles/Vol] 99 mmol/L Normal 98-107 [facility] Comment on above: Performed By: #### L NATALIIA [id number] #### [facility] [address] [address] [address] Meaghan Gannon CO2 [Moles/Vol] 29.3 mmol/L Normal 21.0-32.0 [facility] Comment on above: Performed By: #### L NATALIIA [id number] #### [facility] [address] [address] [address] Meaghan Gannon Creatinine [Mass/Vol] 0.85 mg/dL Normal 0.55-1.02 [facility] Comment on above: Performed By: #### L IPID, [id number] #### [facility] [address] [address] [address] Meaghan Gannon EGFR-AF BURMESE >60 Normal >=60 [facility] Comment on above: Performed By: #### L IPID, [id number] #### [facility] [address] [address] [address] Meaghan Gannon EGFR-NON AF BURMESE >60 Normal >=60 [facility] Comment on above: Performed By: #### L IPID, [id number] #### [facility] [address] [place] [address] Dr. Meaghan Gannon Glucose [Mass/Vol] 89 mg/dL Normal 74-106 [facility] Comment on above: Performed By: #### L IPID, [id number] #### [facility] [address] [address] [address] Meaghan Gannon Potassium [Moles/Vol] 4.0 mmol/L Normal 3.5-5.1 [facility] Comment on above: Performed By: #### L IPID, [id number] #### [facility] [address] [address] [address] Meaghan Gannon Sodium [Moles/Vol] 139 mmol/L Normal 136-145 [facility] Comment on above: Performed By: #### L IPID, [id number] #### [facility] [address] [address] [address] Meaghan Gnanon Urea nitrogen [Mass/Vol] 9.0 mg/dL Normal 7.0-18.0 [facility] Comment on above: Performed By: #### L IPID, [id number] #### [facility] [address] [address] [address] Meaghan Gannon Urea nitrogen/Creatinine [Mass ratio] 10.6 mg/mg Normal [facility] Comment on above: Performed By: #### L IPID, [id number] #### [facility] [address] [address] [address] Meaghan Gannon XR HAND HAI MIN [...] JANINE FELDMAN Date: 2022-06-27 08:38 Normal [facility] CBC AUTO DIFFon 06-26-2022 BASO # 0.0 103/ul Normal 0.0-0.1 [facility] Comment on above: Performed By: #### C BC #### [facility] [address] [address] [address] Meaghan Gannon Basophils/100 WBC (Bld) 0.3 % Normal 0.2-2.0 [facility] Comment on above: Performed By: #### C BC #### [facility] [address] [address] [address] Meaghan Gannon EO # 0.2 103/ul Normal 0.0-0.7 [facility] Comment on above: Performed By: #### C BC #### [facility] [address] [address] [address] Meaghan Gannon Eosinophils/100 WBC (Bld) 2.0 % Normal 0.9-7.0 [facility] Comment on above: Performed By: #### C BC #### [facility] [address] [place] [address] Dr. Meaghan Gannon Erythrocyte distribution width (RBC) [Ratio] 15.9 % Critically high 11.0-15.0 [facility] Comment on above: Performed By: #### C BC #### [facility] [address] [place] [address] Dr. Meaghan Gannon Hematocrit (Bld) [Volume fraction] 44.3 % Normal 36.0-48.0 [facility] Comment on above: Performed By: #### C BC #### [facility] [address] [place] [address] Dr. Meaghan Gannon Hemoglobin (Bld) [Mass/Vol] 14.3 g/dL Normal 12.0-16.0 [facility] Comment on above: Performed By: #### C BC #### [facility] [address] [place] [address] Dr. Meaghan Gannon IG # 0.03 10e3/ul Normal 0.00-0.03 [facility] Comment on above: Performed By: #### C BC #### [facility] [address] [place] [address] Dr. Meaghan Gannon IG % 0.3 % Normal 0.0-0.5 [facility] Comment on above: Performed By: #### C BC #### [facility] [address] [place] [address] Dr. Meaghan Gannon LYMPH # 2.4 103/ul Normal 1.2-3.8 [facility] Comment on above: Performed By: #### C BC #### [facility] [address] [place] [address] Dr. Meaghan Gannon Lymphocytes/100 WBC (Bld) 24.2 % Normal 20.5-60.0 [facility] Comment on above: Performed By: #### C BC #### [facility] [address] [place] [address] Dr. Meaghan Gannon MANUAL DIFF REQ NO Normal [facility] Comment on above: Performed By: #### C BC #### [facility] [address] [address] [address] Meaghan Gannon MCH (RBC) [Entitic mass] 29.1 pg Normal 26.7-34.0 [facility] Comment on above: Performed By: #### C BC #### [facility] [address] [place] [address] Dr. Meaghan Gannon MCHC (RBC) [Mass/Vol] 32.3 g/dL Normal 29.9-35.2 [facility] Comment on above: Performed By: #### C BC #### [facility] [address] [place] [address] Dr. Meaghan Gannon MCV (RBC) [Entitic vol] 90.2 fL Normal 81.0-99.0 [facility] Comment on above: Performed By: #### C BC #### [facility] [address] [place] [address] Dr. Meaghan Gannon MONO # 0.9 103/ul Critically high 0.3-0.8 [facility] Comment on above: Performed By: #### C BC #### [facility] [address] [place] [address] Dr. Meaghan Gannon Monocytes/100 WBC (Bld) 9.1 % Normal 1.7-12.0 [facility] Comment on above: Performed By: #### C BC #### [facility] [address] [place] [address] Dr. Meaghan Gannon NEUT # 6.2 103/ul Normal 1.4-6.5 [facility] Comment on above: Performed By: #### C BC #### [facility] [address] [place] [address] Dr. Meaghan Gannon Neutrophils/100 WBC (Bld) 64.1 % Normal 43.0-75.0 [facility] Comment on above: Performed By: #### C BC #### [facility] [address] [place] [address] Dr. Meaghan Gannon Platelet mean volume (Bld) [Entitic vol] 10.5 fL Normal 9.5-13.5 [facility] Comment on above: Performed By: #### C BC #### [facility] [address] [place] [address] Dr. Meaghan Gannon PLT 341 103/ul Normal 150-450 [facility] Comment on above: Performed By: #### C BC #### [facility] [address] [place] [address] Dr. Meaghan Gannon RBC 4.91 106/ul Normal 4.20-5.40 [facility] Comment on above: Performed By: #### C BC #### [facility] [address] [place] [address] Dr. Meaghan Gannon WBC 9.7 103/ul Normal 4.0-11.0 [facility] Comment on above: Performed By: #### C BC #### [facility] [address] [place] [address] Dr. Meaghan Gannon CRPon 06-26-2022 CRP [Mass/Vol] mg/L Normal <=1.0 [facility] Comment on above: Performed By: #### L ANGELAID [id number] #### [facility] [address] [place] [address] Dr. Meaghan Gannon LIPID PROFILEon 06-26-2022 CHOL-HDL RATIO NORM SEE BELOW Normal [facility] Comment on above: Result Comment: 3.3 - 4.4 LOW RISK 4.4 - 7.1 AVERAGE RISK 7.1 - 11.0 MODERATE RISK >11.0 HIGH RISK Performed By: #### L IPID [id number] #### [facility] [address] [place] [address] Dr. Meaghan Gannon Cholesterol [Mass/Vol] 146 mg/dL Normal <=200 [facility] Comment on above: Performed By: #### L IPID, [id number] #### [facility] [address] [place] [address] Dr. Meaghan Gannon Cholesterol in HDL [Mass/Vol] 43 mg/dL Normal 40-60 [facility] Comment on above: Performed By: #### L IPID, [id number] #### [facility] [address] [place] [address] Dr. Meaghan Gannon Cholesterol in LDL [Mass/Vol] 76.2 mg/dL Normal [facility] Comment on above: Performed By: #### L IPID, [id number] #### [facility] [address] [place] [address] Dr. Meaghan Gannon Cholesterol.total/Chol esterol in HDL [Mass ratio] 3.4 {ratio} Normal [facility] Comment on above: Performed By: #### L IPID, [id number] #### [facility] [address] [address] [address] Meaghan Gannon HDL NORMAL > or = 60 mg/dl - LO W CARDIOVASCULAR RISK <40 mg/dl - HIGH CARDIOVASCULAR RISK Normal [facility] Comment on above: Performed By: #### L IPID, [id number] #### [facility] [address] [place] [address] Dr. Meaghan Gannon LDL CALC NORMAL SEE BELOW Normal [facility] Comment on above: Result Comment: <100 mg/dl OPTIMAL 100 - 129 mg/dl NEAR OR ABOVE OPTIMAL 130 - 159 mg/dl BORDERLINE HIGH 160 - 189 mg/dl HIGH >190 mg/dl VERY HIGH Performed By: #### L IPID, [id number] #### [facility] [address] [place] [address] Dr. Meaghan Gannon Triglyceride [Mass/Vol] 134 mg/dL Normal <=150 [facility] Comment on above: Performed By: #### L IPID, [id number] #### [facility] [address] [address] [address] Meaghan Gannon VLDL CALC 26.8 mg/dL Normal [facility] Comment on above: Performed By: #### L IPID, [id number] #### [facility] [address] [address] [address] Meaghan Gannon PROF 14(COMP METB)on 023 Albumin [Mass/Vol] 3.6 g/dL Normal 3.4-5.0 [facility] Comment on above: Performed By: #### L IPID, [id number] #### [facility] [address] [place] [address] Dr. Meaghan Gannon Albumin/Globulin [Mass ratio] 0.8 {ratio} Normal [facility] Comment on above: Performed By: #### L IPID [id number] #### [facility] [address] [place] [address] Dr. Meaghan Gannon ALP [Catalytic activity/Vol] 99 U/L Normal 46-116 [facility] Comment on above: Performed By: #### L IPID [id number] #### [facility] [address] [place] [address] Dr. Meaghan Gannon ALT [Catalytic activity/Vol] 21 U/L Normal 14-59 [facility] Comment on above: Performed By: #### L IPID [id number] #### [facility] [address] [place] [address] Dr. Meaghan Gannon Anion gap [Moles/Vol] 12.9 mmol/L Normal [facility] Comment on above: Performed By: #### L IPID [id number] #### [facility] [address] [place] [address] Dr. Meaghan Gannon AST [Catalytic activity/Vol] 54 U/L Critically high 15-37 [facility] Comment on above: Performed By: #### L IPID [id number] #### [facility] [address] [place] [address] Dr. Meaghan Gannon Bilirubin [Mass/Vol] 0.7 mg/dL Normal 0.2-1.0 [facility] Comment on above: Performed By: #### L IPID, [id number] #### [facility] [address] [place] [address] Dr. Meaghan Gannon Calcium [Mass/Vol] 10.1 mg/dL Normal 8.5-10.1 [facility] Comment on above: Performed By: #### L IPID, [id number] #### [facility] [address] [place] [address] Dr. Meaghan Gannon Chloride [Moles/Vol] 101 mmol/L Normal 98-107 [facility] Comment on above: Performed By: #### L IPID, [id number] #### [facility] [address] [address] [address] Meaghan Gannon CO2 [Moles/Vol] 30.2 mmol/L Normal 21.0-32.0 [facility] Comment on above: Performed By: #### L IPID, [id number] #### [facility] [address] [address] [address] Meaghan Gannon Creatinine [Mass/Vol] 0.93 mg/dL Normal 0.55-1.02 [facility] Comment on above: Performed By: #### L IPID, [id number] #### [facility] [address] [address] [address] Meaghan Gannon EGFR-AF BURMESE >60 Normal >=60 [facility] Comment on above: Performed By: #### L IPID, [id number] #### [facility] [address] [address] [address] Meaghan Gannon EGFR-NON AF BURMESE >60 Normal >=60 [facility] Comment on above: Performed By: #### L IPID, [id number] #### [facility] [address] [address] [address] Meaghan Gannon Globulin (S) [Mass/Vol] 4.3 g/dL Normal [facility] Comment on above: Performed By: #### L IPID, [id number] #### [facility] [address] [address] [address] Meaghan Gannon Glucose [Mass/Vol] 100 mg/dL Normal 74-106 [facility] Comment on above: Performed By: #### L IPID, [id number] #### [facility] [address] [address] [address] Meaghan Gannon Potassium [Moles/Vol] 4.1 mmol/L Normal 3.5-5.1 [facility] Comment on above: Performed By: #### L IPID, [id number] #### [facility] [address] [address] [address] Meaghan Gannon Protein [Mass/Vol] 7.9 g/dL Normal 6.4-8.2 [facility] Comment on above: Performed By: #### L IPID, [id number] #### [facility] [address] [place] [address] Dr. Meaghan Gannon Sodium [Moles/Vol] 140 mmol/L Normal 136-145 [facility] Comment on above: Performed By: #### L IPID, [id number] #### [facility] [address] [place] [address] Dr. Meaghan Gannon Urea nitrogen [Mass/Vol] 10.0 mg/dL Normal 7.0-18.0 [facility] Comment on above: Performed By: #### L IPID [id number] #### [facility] [address] [place] [address] Dr. Meaghan Gannon Urea nitrogen/Creatinine [Mass ratio] 10.8 mg/mg Normal [facility] Comment on above: Performed By: #### L IPID [id number] #### [facility] [address] [place] [address] Dr. Meaghan Gannon SED RATE MULLINSERGREN 2022 SED RATE 32 mm/hr Critically high <=30 [facility] Comment on above: Performed By: #### S EDR #### [facility] [address] [place] [address] Dr. Meaghan Gannon TSH W/ REFLEX TO FT4on 06-26 TSH 0.637 uIU/mL Normal 0.358-3.74 0 [facility] Comment on above: Performed By: #### L IPID, [id number] #### [facility] [address] [place] [address] Dr. Meaghan Gannon XR CHEST 2 Von [...] ROSETTA MANNING Date: 2022-06-26 12:48 Normal [facility] Albumin [Mass/volume] in Ser um or PlasmaOrdered By: Ed Snyder on 05-02-2022 Albumin [Mass/Vol] 4.2 g/dL 3.2-5.5 [facility] Basophils Auto (Bld) [#/Vol] Ordered By: Ed Snyder on 05-02-2022 Basophils (Bld) [#/Vol] 0.1 10*3/uL 0.0-0.2 [facility] Basophils/100 WBC Auto (Bld) Ordered By: Ed Snyder on 05-02-2022 Basophils/100 WBC (Bld) 0.6 % . [facility] Creatinine and Glomerular fi ltration rate.predicted panel (S/P/Bld)Ordered By: Ed Snyder on 05-02-2022 Creatinine [Mass/Vol] 0.89 mg/dL 0.44-1.03 [facility] Eosinophils Auto (Bld) [#/Vo l]Ordered By: Ed Snyder on 05-02-2022 Eosinophils (Bld) [#/Vol] 0.0 10*3/uL 0.0-0.45 [facility] Eosinophils/100 WBC Auto (Bl d)Ordered By: Ed Snyder on 05-02-2022 Eosinophils/100 WBC (Bld) 0.5 % . [facility] Erythrocyte distribution wid th Auto (RBC) [Ratio]Ordered By: Ed Snyder on 05-02-2022 Erythrocyte distribution width (RBC) [Ratio] 14.8 % 11.9-15.3 [facility] Erythrocyte sedimentation ra te by Photometric methodOrdered By: Ed Snyder on 05-02-2022 ESR Photometric method (Bld) [Velocity] 62 mm/hr 0-29 [facility] Estimated glomerular filtrat ion rate (GFR) non- AmericanOrdered By: Ed Snyder on 05-02-2022 GFR/1.73 sq M.predicted among non-blacks MDRD (S/P/Bld) [Vol rate/Area] > 60 mL/Min [facility] Globulin Calc (S) [Mass/Vol] Ordered By: Ed Snyder on 05-02-2022 Globulin (S) [Mass/Vol] 3.4 g/dL [facility] Hematocrit Auto (Bld) [Volum e fraction]Ordered By: Ed Snyder on 05-02-2022 Hematocrit (Bld) [Volume fraction] 46.9 % 34.0-46.4 [facility] Hemoglobin [Mass/volume] in BloodOrdered By: Ed Snyder on 05-02-2022 Hemoglobin (Bld) [Mass/Vol] 15.2 g/dL 11.8-15.4 [facility] Leukocytes [#/volume] correc arin for nucleated erythrocytes in Blood by Automated counOrdered By: Ed Snyder on 05-02-2022 WBC corrected for nucl RBC Auto (Bld) [#/Vol] 9.5 10*3/uL 3.8-11.6 [facility] Lymphocytes Auto (Bld) [#/Vo l]Ordered By: Ed Snyder on 05-02-2022 Lymphocytes (Bld) [#/Vol] 2.6 10*3/uL 1.00-4.8 [facility] Lymphocytes/100 WBC Auto (Bl d)Ordered By: Ed Snyder on 05-02-2022 Lymphocytes/100 WBC (Bld) 27.5 % . [facility] MCH Auto (RBC) [Entitic mass ]Ordered By: Ed Snyder on 05-02-2022 MCH (RBC) [Entitic mass] 28.5 pg 24.7-34.3 [facility] MCHC Auto (RBC) [Mass/Vol]Or dered By: Ed Snyder on 05-02-2022 MCHC (RBC) [Mass/Vol] 32.4 g/dL 32.0-35.0 [facility] MCV Auto (RBC) [Entitic vol] Ordered By: Ed Snyder on 05-02-2022 MCV (RBC) [Entitic vol] 88.1 fL 80-100 [facility] Monocytes Auto (Bld) [#/Vol] Ordered By: Ed Snyder on 05-02-2022 Monocytes (Bld) [#/Vol] 1.0 10*3/uL 0.0-0.8 [facility] Monocytes/100 WBC Auto (Bld) Ordered By: Ed Snyder on 05-02-2022 Monocytes/100 WBC (Bld) 10.3 % . [facility] Neutrophils Auto (Bld) [#/Vo l]Ordered By: Ed Snyder on 05-02-2022 Neutrophils (Bld) [#/Vol] 5.8 10*3/uL 1.8-7.7 [facility] Neutrophils/100 WBC Auto (Bl d)Ordered By: Ed Snyder on 05-02-2022 Neutrophils/100 WBC (Bld) 61.1 % . [facility] No Panel InformationOrdered By: Ed Snyder on 05-02-2022 Estimated GFR () > 60 mL/Min [facility] Comment on above: GFR estimated refere nce range: According to KDOQI guidelines, <60 ml/min/1.73m2 is sufficient to diagnose a patient with chronic kidney disease. Pharmacy Creatinine Clearance (Chem N/A [facility] Nucleated erythrocytes [Pres ence] in Blood by Automated countOrdered By: Ed Snyder on 05-02-2022 Nucleated RBC Auto Ql (Bld) 0.1 /100{WBC} 0-0.5 [facility] Platelet mean volume Auto (B ld) [Entitic vol]Ordered By: Ed Snyder on 05-02-2022 Platelet mean volume (Bld) [Entitic vol] 10.2 fL 6.3-10.7 [facility] Platelets Auto (Bld) [#/Vol] Ordered By: Ed Snyder on 05-02-2022 Platelets (Bld) [#/Vol] 357 10*3/uL 150-450 [facility] Protein [Mass/volume] in Ser um or PlasmaOrdered By: Ed Snyder on 05-02-2022 Protein [Mass/Vol] 7.6 g/dL 6.1-7.9 [facility] RBC Auto (Bld) [#/Vol]Ordere d By: Ed Snyder on 05-02-2022 RBC (Bld) [#/Vol] 5.32 10*6/uL 3.60-5.00 [facility] Serum or plasma alanine ramos otransferase measurement without P-5'-P (enzymatic activiOrdered By: Ed Snyder on 05-02-2022 ALT No additional P-5'-P [Catalytic activity/Vol] 12 U/L 10-60 [facility] Serum or plasma albumin/glob ulin mass ratioOrdered By: Ed Snyder on 05-02-2022 Albumin/Globulin [Mass ratio] 1.2 {ratio} [facility] Serum or plasma alkaline christine sphatase measurement (enzymatic activity/volume)Ordered By: Ed Snyder on 05-02-2022 ALP [Catalytic activity/Vol] 105 U/L 32-92 [facility] Serum or plasma anion gap de terminationOrdered By: Ed Snyder on 05-02-2022 Anion gap [Moles/Vol] 12.9 mmol/L 6.0-15.0 [facility] Serum or plasma aspartate am inotransferase measurement (enzymatic activity/volume)Ordered By: Ed Snyder on 05-02-2022 AST [Catalytic activity/Vol] 16 U/L 10-42 [facility] Serum or plasma calcium tiara urement (mass/volume)Ordered By: Ed Snyder on 05-02-2022 Calcium [Mass/Vol] 9.9 mg/dL 8.2-10.2 [facility] Serum or plasma chloride levar surement (moles/volume)Ordered By: Ed Snyder on 05-02-2022 Chloride [Moles/Vol] 99 mmol/L 95-114 [facility] Serum or plasma glucose tiara urement (mass/volume)Ordered By: Ed Snyder on 05-02-2022 Glucose [Mass/Vol] 91 mg/dL 70-100 [facility] Comment on above: ADA recommended refe rence rangeRandom Glucose Reference Range is dependent on time and content of last meal. Glucose of more than 200 mg/dL in a nonstressed, ambulatory subject supports the diagnosis of Diabetes Mellitus. Serum or plasma potassium me asurement (moles/volume)Ordered By: Ed Snyder on 05-02-2022 Potassium [Moles/Vol] 4.5 mmol/L 3.5-5.1 [facility] Serum or plasma sodium measu rement (moles/volume)Ordered By: Ed Snyder on 05-02-2022 Sodium [Moles/Vol] 134 mmol/L 136-146 [facility] Serum or plasma total biliru bin measurement (mass/volume)Ordered By: Ed Snyder on 05-02-2022 Bilirubin [Mass/Vol] 0.7 mg/dL 0.3-1.2 [facility] Serum or plasma total carbon dioxide measurement (moles/volume)Ordered By: Ed Snyder on 05-02-2022 CO2 [Moles/Vol] 26.6 mmol/L 22.0-30.0 [facility] Serum or plasma urea nitroge n measurement (mass/volume)Ordered By: Ed Snyder on 05-02-2022 Urea nitrogen [Mass/Vol] 10 mg/dL 12-09 [facility] WBC Auto (Bld) [#/Vol]Ordere d By: Ed Snyder on 05-02-2022 WBC (Bld) [#/Vol] 9.5 10*3/uL 3.8-11.6 [facility] Urinalysis - AUTOMATEDon Appearance (U) Cloudy [employer] Other Bilirubin Ql (U) Negative [employer] Other Color (U) Light Yellow [employer] Other Glucose Ql (U) 250 [employer] Other Hemoglobin Ql (U) Small [employer] (Chapter 11) Other Ketones Ql (U) Negative [employer] Other Leukocyte esterase Test strip Ql (U) Trace [employer] Other Nitrite Ql (U) Negative [employer] Other pH (U) 5.0 [pH] [employer] Other Protein Ql (U) Negative [employer] Other Specific gravity (U) [Rel density] 1.015 [employer] [facility] test company Other Urobilinogen (U) [Mass/Vol] 0.2 mg/dL [employer] Other Urinalysis - AUTOMATED No rth [employer] Other Urine Cultureon 03-15-2022 Bacteria identified Cx Nom (U) [employer] Other Urine culture routineOrdered By: Drew White on 03-15-2022 Bacteria identified Cx Nom (U) bacilli - 2 Days [facility] MAGNESIUMon 01-31-2022 Magnesium [Mass/Vol] 2.1 mg/dL Normal 1.8-2.4 [facility] Comment on above: Performed By: #### C MP, MG, TSH #### [facility] [address] [place] [address] Dr. Meaghan Gannon PROF 14(COMP METB)on 022 Albumin [Mass/Vol] 3.5 g/dL Normal 3.4-5.0 [facility] Comment on above: Performed By: #### C MP, MG, TSH #### [facility] [address] [place] [address] Dr. Meaghan Gannon Albumin/Globulin [Mass ratio] 0.8 {ratio} Normal [facility] Comment on above: Performed By: #### C MP, MG, TSH #### [facility] [address] [place] [address] Dr. Meaghan Gannon ALP [Catalytic activity/Vol] 103 U/L Normal 46-116 [facility] Comment on above: Performed By: #### C MP, MG, TSH #### [facility] [address] [place] [address] Dr. Meaghan Gannon ALT [Catalytic activity/Vol] 13 U/L Critically low 14-59 [facility] Comment on above: Performed By: #### C MP, MG, TSH #### [facility] [address] [place] [address] Dr. Meaghan Gannon Anion gap [Moles/Vol] 9.8 mmol/L Normal [facility] Comment on above: Performed By: #### C MP, MG, TSH #### [facility] [address] [place] [address] Dr. Meaghan Gannon AST [Catalytic activity/Vol] 39 U/L Critically high 15-37 [facility] Comment on above: Performed By: #### C MP, MG, TSH #### [facility] [address] [place] [address] Dr. Meaghan Gannon Bilirubin [Mass/Vol] 0.5 mg/dL Normal 0.2-1.0 [facility] Comment on above: Performed By: #### C MP, MG, TSH #### [facility] [address] [place] [address] Dr. Meaghan Gannon Calcium [Mass/Vol] 9.7 mg/dL Normal 8.5-10.1 [facility] Comment on above: Performed By: #### C MP, MG, TSH #### [facility] [address] [place] [address] Dr. Meaghan Gannon Chloride [Moles/Vol] 102 mmol/L Normal 98-107 [facility] Comment on above: Performed By: #### C MP, MG, TSH #### [facility] [address] [place] [address] Dr. Meaghan Gannon CO2 [Moles/Vol] 29.0 mmol/L Normal 21.0-32.0 [facility] Comment on above: Performed By: #### C MP, MG, TSH #### [facility] [address] [place] [address] Dr. Meaghan Gannon Creatinine [Mass/Vol] 0.94 mg/dL Normal 0.55-1.02 [facility] Comment on above: Performed By: #### C MP, MG, TSH #### [facility] [address] [place] [address] Dr. Meaghan Gannon EGFR-AF BURMESE >60 Normal >=60 [facility] Comment on above: Performed By: #### C MP, MG, TSH #### [facility] [address] [place] [address] Dr. Meaghan Gannon EGFR-NON AF BURMESE =60 Normal >=60 [facility] Comment on above: Performed By: #### C MP, MG, TSH #### [facility] [address] [place] [address] Dr. Meaghan Gannon Globulin (S) [Mass/Vol] 4.5 g/dL Normal [facility] Comment on above: Performed By: #### C MP, MG, TSH #### [facility] [address] [address] [address] Meaghan Gannon Glucose [Mass/Vol] 89 mg/dL Normal 74-106 [facility] Comment on above: Performed By: #### C MP, MG, TSH #### [facility] [address] [place] [address] Dr. Meaghan Gannon Potassium [Moles/Vol] 3.8 mmol/L Normal 3.5-5.1 [facility] Comment on above: Performed By: #### C MP, MG, TSH #### [facility] [address] [place] [address] Dr. Meaghan Gannon Protein [Mass/Vol] 8.0 g/dL Normal 6.4-8.2 [facility] Comment on above: Performed By: #### C MP, MG, TSH #### [facility] [address] [place] [address] Dr. Meaghan Gannon Sodium [Moles/Vol] 137 mmol/L Normal 136-145 [facility] Comment on above: Performed By: #### C MP, MG, TSH #### [facility] [address] [place] [address] Dr. Meaghan Gannon Urea nitrogen [Mass/Vol] 18.0 mg/dL Normal 7.0-18.0 [facility] Comment on above: Performed By: #### C MP, MG, TSH #### [facility] [address] [place] [address] Dr. Meaghan Gannon Urea nitrogen/Creatinine [Mass ratio] 19.1 mg/mg Normal [facility] Comment on above: Performed By: #### C MP, MG, TSH #### [facility] [address] [place] [address] Dr. Meaghan Gannon TSHon 01-31-2022 TSH 1.188 uIU/mL Normal 0.358-3.74 0 [facility] Comment on above: Performed By: #### C MP, MG, TSH #### [facility] [address] [address] [address] Meaghan Gannon MAGNESIUMon 09-29-2021 Magnesium [Mass/Vol] 2.1 mg/dL Normal 1.8-2.4 [facility] Comment on above: Performed By: #### L IPID, [id number] #### [facility] [address] [place] [address] Dr. Meaghan Gannon PROF CHEM 8 (BAS METB)on Anion gap [Moles/Vol] 10.7 mmol/L Normal [facility] Comment on above: Performed By: #### L IPID [id number] #### [facility] [address] [place] [address] Dr. Meaghan Gannon Calcium [Mass/Vol] 9.5 mg/dL Normal 8.5-10.1 [facility] Comment on above: Performed By: #### L IPID, [id number] #### [facility] [address] [place] [address] Dr. Meaghan Gannon Chloride [Moles/Vol] 103 mmol/L Normal 98-107 [facility] Comment on above: Performed By: #### L IPID, [id number] #### [facility] [address] [place] [address] Dr. Meaghan Gannon CO2 [Moles/Vol] 30.4 mmol/L Normal 21.0-32.0 [facility] Comment on above: Performed By: #### L IPID, [id number] #### [facility] [address] [place] [address] Dr. Meaghan Gannon Creatinine [Mass/Vol] 1.13 mg/dL Critically high 0.55-1.02 [facility] Comment on above: Performed By: #### L IPID, [id number] #### [facility] [address] [address] [address] Meaghan Gannon EGFR-AF BURMESE 59 mL/min/1.73m2 Critically low >=60 [facility] Comment on above: Performed By: #### L IPID, [id number] #### [facility] [address] [address] [address] Meaghan Gannon EGFR-NON AF BURMESE 49 mL/min/1.73m2 Critically low >=60 [facility] Comment on above: Performed By: #### L IPID, [id number] #### [facility] [address] [address] [address] Meaghan Gannon Glucose [Mass/Vol] 93 mg/dL Normal 74-106 [facility] Comment on above: Performed By: #### L IPID, [id number] #### [facility] [address] [place] [address] Dr. Meaghan Gannon Potassium [Moles/Vol] 4.1 mmol/L Normal 3.5-5.1 [facility] Comment on above: Performed By: #### L IPID, [id number] #### [facility] [address] [address] [address] Meaghan Gannon Sodium [Moles/Vol] 140 mmol/L Normal 136-145 [facility] Comment on above: Performed By: #### L IPID, [id number] #### [facility] [address] [address] [address] Meaghan Gannon Urea nitrogen [Mass/Vol] 18.0 mg/dL Normal 7.0-18.0 [facility] Comment on above: Performed By: #### L IPID, [id number] #### [facility] [address] [address] [address] Meaghan Gannon Urea nitrogen/Creatinine [Mass ratio] 15.9 mg/mg Normal [facility] Comment on above: Performed By: #### L IPID, [id number] #### [facility] [address] [place] [address] Dr. Meaghan Gannon Tobacco Screening.on 022 Adult depression screening assessment No [facility] [place] [facility] 250 DO Work Phone: Tobacco use status CPHS b) No [facility] 250 DO Work Phone: Heart Rateon 06-07-[address] [facility] 250 DO Work Phone: Office Visit (Cardiology)on 06-07-2021 Follow-up visit Diagnoses/Problems Assessed Benign essential hypertension (401.1) (I10) Orders Benign essential hypertension Stop: Furosemide 40 MG Oral Tablet Persistent atrial fibrillation Stop: Potassium Chloride ER 10 MEQ Oral Tablet Extended Release Unlinked Stop: Potassium Chloride 10 MEQ TBCR Patient Instructions By signing my name below, I, Yocasta Maza LPN ,Antonietta, attest that this documentation has been prepared [...] Keep appointment as scheduled Chief Complaint ARIAN FRITZ is being seen for hypertension and BP [...] BY MOUTH EVERY DAY Ergocalciferol 1.25 MG (59685 UT) Oral CapsuleTAKE 1 CAPSULE WEEKLY. Furosemide [...] Oral TabletTAKE 1 TABLET DAILY DIRECTED by [facility] Zoloft 50 MG Oral TabletTAKE 1 AND 1/2 TABLETS DAILY. Patient did not bring medications list or bottles. Updated verbally with patient. Allergies Medication Compazine Recorded By: Toshia Hyatt; 04/12/2021 7:02:42 AM Vitals Vital Signs Recorded: 07Jun2021 02:54PMRecorded: 07Jun2021 02:51PM Qccigcnb185, LUE, Enfeavx532, RUE, Sitting Yxolgoibf07, LUE, Egjhuvl25, RUE, Sitting Heart Rate56, L Radial Pulse QualityRegular, L Radial Height5 ft 4 in Dljjps133 lb BMI Fyybohlkyk98.58 kg/m2 BSA Calculated1.89 Signatures Electronically signed by : Marty Lynn MD; Jun 07 2021 5:17PM EST (Author) Normal [employer] [place] Office Visit (Cardiology)on 04-28-2021 Follow-up visit Diagnoses/Problems [...] Persistent atrial fibrillation Lipid Panel; Status:Active; Requested for:28Apr2021; Benign essential hypertension, High risk medication use, Persistent atrial fibrillation ALT - Alanine Aminotransferase, Serum; Status:Active; Requested for:28Apr2021; AST; Status:Active; Requested for:28Apr2021; Basic Metabolic Panel; Status:Active; Requested for:28Apr2021; Complete Blood Count; Status:Active; Requested for:28Apr2021; SocHx: Never a smoker Tobacco Use Screening; Status:Complete; Done: 28Apr2021 Patient Instructions By signing my name below, IWilliam LPN, Scribe, attest that this documentation has [...] up in 3 weeks Chief Complaint ARIAN FRITZ is being seen for a 6 month [...] atrial fibrillation status post radiofrequency ablation at [facility] with recurrent atrial fibrillation, presently on [...] BY MOUTH EVERY DAY Ergocalciferol 1.25 MG (35093 UT) Oral CapsuleTAKE 1 CAPSULE WEEKLY. Furosemide [...] Oral TabletTAKE 1 TABLET DAILY DIRECTED by [facility] Zoloft 50 MG Oral TabletTAKE 1 AND 1/2 TABLETS DAILY. Allergies Medication Compazine Recorded By: Toshia Hyatt; 04/12/2021 7:02:42 (more content not included)... [facility] [employer] [place] Tobacco Screening.on 022 Tobacco use status CPHS b) No [facility] 250 DO Work Phone: Daily Progress Note-Electrop hysiologyon 05-14-2019 Daily Progress Note-Electrophysiology Service: Electrophysiology Subjective Data: ARIAN FRITZ is a 59 year old Female who is Hospital Day # 2. Additional Information: -Pt was examined at 9:45AM and tele reviewed -Pt was seen by EP fellowBen Dubois MD this AM also -denies CP/dyspnea/LH/palps; cannot feel that she is in AFL -pt is NPO for DCCV today per Dr Wall Objective Data: Objective Information: T PRBPSpO2 [id number]/8697% Date/Time05/14 12: 13: 13: 13: 13:00 Range(36.2C [...] these laboratory results: PT + INR, Plasma -Apr-2019 11:23:00 ResultValue Prothrombin Time, Plasma 28.5 H International Normalized Ratio, Plasma 2.5 H Assessment and Plan: Assessment: 59yo F with HTN, HLD, CAD/PCI LAD 04/2018, CVA 2001, RA on Pred, and AF on Coumadin (managed by [facility] coumad[facility]). Follows with cards Dr Lynn. [...] to go home today. Per Dr Wall, santo diltiazem ER and start Amio 400mg 3x/d [...] -90d intermittent EM given to pt by Rolith who instructed pt on use -F/u with cards Dr Lynn 1 month (pt to call for appt) -F/w Dr Wall 08/15/19 in [place] [address] PA-C, [facility] Cardiac Electrophysiology Electronic Signatures for Addendum Section: William Espana (PAC) (Signed Addendum 14-May-2019 16:21) Greater than 30 min spent on coordination of discharge. Electronic Signatures: William Espana (PAC) (Signed 14-May-2019 16:21) Authored: Service, Subjective Data, Objective Data, Assessment and Plan, Signature/Cosignature/Att estation Last Updated: 14-May-2019 16:21 by William Espana (PAC) Normal [facility] Discharge Planning [id number] 0 05-14-2019 Discharge Planning Note2 Discharge Planning: Anticipated Discharge [id number] Discharge Planning 05/14/19 16:45 Pt given discharge instructions. Prescription sent to pharmacy. Pt and pt's daughter verbalized understanding of discharge instructions. peripheral IV removed and pt removed from tele. right groin site dry/intact with no hematoma. 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 Data Referenced From Patient Profile - Adult v2 13-May-2019 08:21 Normal [facility] PT/INRon 05-14-2019 INR Coag (PPP) [Relative time] 2.5 {INR} High 0.9 - 1.1 [facility] Comment on above: Performed By: #### P TINR #### [facility] [address] [place] [address] PT Coag (PPP) [Time] 28.5 s High 9.7 - 12.7 [facility] Comment on above: Performed By: #### P TINR #### [facility] [address] [place] [address] ACT-HIGH RANGEon 05-13-2019 ACT-HIGH RANGE 221 SECONDS High 96 - 152 [facility] Comment on above: Result Comment: Note new reference range as of 06/21/2018. Target ACT range will vary based on the patient population, clinical status, and surgical intervention occurring. Performed By: #### A CTP #### [facility] [address] [place] [address] ACT-HIGH RANGE 352 SECONDS High 96 - 152 [facility] Comment on above: Result Comment: Note new reference range as of 06/21/2018. Target ACT range will vary based on the patient population, clinical status, and surgical intervention occurring. Performed By: #### A CTP #### [facility] [address] [place] [address] ACT-HIGH RANGE 360 SECONDS High 96 - 152 [facility] Comment on above: Result Comment: Note new reference range as of 06/21/2018. Target ACT range will vary based on the patient population, clinical status, and surgical intervention occurring. Performed By: #### A CTP #### [facility] [address] [place] [address] ACT-HIGH RANGE 351 SECONDS High 96 - 152 [facility] Comment on above: Result Comment: Note new reference range as of 06/21/2018. Target ACT range will vary based on the patient population, clinical status, and surgical intervention occurring. Performed By: #### A CTP #### [facility] [address] [place] [address] ACT-HIGH RANGE 325 SECONDS High 96 - 152 [facility] Comment on above: Result Comment: Note new reference range as of 06/21/2018. Target ACT range will vary based on the patient population, clinical status, and surgical intervention occurring. Performed By: #### A CTP #### [facility] [address] [place] [address] ACT-HIGH RANGE 286 SECONDS High 96 - 152 [facility] Comment on above: Result Comment: Note new reference range as of 06/21/2018. Target ACT range will vary based on the patient population, clinical status, and surgical intervention occurring. Performed By: #### A CTP #### [facility] [address] [place] [address] ACT-HIGH RANGE 288 SECONDS High 96 - 152 [facility] Comment on above: Result Comment: Note new reference range as of 06/21/2018. Target ACT range will vary based on the patient population, clinical status, and surgical intervention occurring. Performed By: #### A CTP #### [facility] [address] [place] [address] Admission Risk Screen - Adul ton 05-13-2019 [...] Advance Directive typeLiving Will, Durable Power of [place] for Healthcare Living Will AvailabilityLiving Will not available now Living Will [id number] Durable Power of [place] AvailabilityDPOA not available now Durable Power of [place] [id number] Durable Power of [place] contact (name and number)pt doesn't know Falls Screen: Type of Assessmentadmission Moderate Risk Factorsnursing judgment (specify) High Risk Factorsnursing judgment (specify) Risk for Injury Associated with Fallcoagulation blood thinners (Coumadin, heparin gtt), coagulopathy Fall Risk Conclusionhigh falls risk with risk for associated injury [place] Safety InterventionsWDL *orient to call system *instruct [...] instruction; verbal instruction Cultural Considerationsnone Developmental Considerationsnone Pentecostal Considerationsnone Learning Assessment (Other Learner): Other learner [...] Spiritual Screen: Are there any cultural, spiritual, roman catholic practices/values/needs that are important for us to knowno CAGE: Is this an injured patient at a Tra[place] Center [place]/ [place]): no Vaccinations: Vaccination - Influenza Vaccination Screen: [...] Present on Admissionno Electronic Signatures: Galina Ventura (ESPINOZA) (Signed 13-May-2019 08:20) Authored: Admission Risk Screens, Vaccinations, Stephon, Pressure Injury Last Updated: 13-May-2019 08:20 by Galina Ventura (ESPINOZA) Normal [facility] History and Physicalon 05-13 History and Physical History of Present Illness: HPI: Arian Fritz is a 59 y/o female referred by [...] and Coumadin. Pts INRs are managed by [facility]. She is currently having her INR's checked monthly. Echo 04/2018: LV size and thickness are normal, EF 55-60%, LA mildly dilated, mild MR, & TR WE DISCUSSED THE RISKS AND BENEFITS OF AADs vs. CATHETER ABLATION FOR PERSISTENT AF. MRs. FRITZ AND HER DAUGHTER UNDERSTAND AND WANT TO [...] x 3. Assessment and Plan: Assessment: Arian Fritz is a 59 y/o female referred by [...] and Coumadin. Pts INRs are managed by [facility]. She is currently having her INR's checked monthly. Echo 04/2018: LV size and thickness are normal, EF 55-60%, LA mildly dilated, mild MR, & TR WE DISCUSSED THE RISKS AND BENEFITS OF AADs vs. CATHETER ABLATION FOR PERSISTENT AF. MRs. FRITZ AND HER DAUGHTER UNDERSTAND AND WANT TO [...] the note. I personally evaluated the patient [id number] Attending Provider Inpatient Certification StatementI certify this [...] Last Updated: 29-May-2019 07:48 by Jonathan Wall) [facility] Patient Profile - Adult v2on 05-13-2019 Patient Profile - Adult v2 Profile: Initial Info: How to be AddressedDonna Spoken Language PreferredEnglish Source of Informationpatient Are you currently using the Personal Electronic Health Record or [email or web address] Are you interested in learning more about [facility] for the management of your healthnot at this time Stated Reason for Admissionprocedure Wants Family/Rep Notified of Admissionno Notify PCPdo not notify PCP Informed of Patient Visiting Rightsyes [facility] Patient Belongingsremains with patient Patient Belongings Remaining with Patientclothing Medications Brought to Hospitalno General Health: Weight in kg86.1 kilogram(s) Weight in vtv364 pound(s) Height in feet5 feet Height in inches5 inch(es) Height in cm165.1 centimeter(s) BMI (kg/m2)31.587 square meter Weight Methodstated Scale Typebed Height Methodstated [facility] Based Care: How would you like to [...] Withalone Living Arrangementshouse Resource/Environmental Concernsnone [facility]ticipated [facility] Services Anticipated at Transitionnone Significant IndicatorsComplete Information Review: Allergies, Home Meds and Significant Events have been Reviewed and Verified with Patient/Familyyes ALLERGY, INTOLERANCE, ADVERSE EVENT: Allergies: Compazine: Drug, Unknown, Active Electronic Signatures: Galina Ventura (ESPINOZA) (Signed 13-May-2019 08:24) Authored: Profile, Additional Information Last Updated: 13-May-2019 08:24 by Galina Ventura (ESPINOZA) Normal [facility] Vital Signs Date Time Vital Sign Value Performing Clinician Facility 11-14-2023 13:00-0400 Body height 158.75 cm DO Ed Lawton Work Phone: [facility] 11-14-2023 13:00-0400 Body mass index (BMI) [Ratio] 20.5 kg/m2 DO Ed Lawton Work Phone: [facility] 11-14-2023 13:00-0400 Body weight 51.7 kg DO Ed Lawton Work Phone: [facility] 11-14-2023 13:00-0400 Diastolic blood pressure 70 mm[Hg] DO Ed Lawton Work Phone: [facility] 11-14-2023 13:00-0400 Heart rate 61 /min DO Ed Lawton Work Phone: [facility] 11-14-2023 13:00-0400 SaO2% (BldA) [Mass fraction] 98 % DO Ed Jered Work Phone: [facility] 11-14-2023 13:00-0400 Systolic blood pressure 120 mm[Hg] DO Ed Jered Work Phone: [facility] 10-17-2023 15:14-0400 Body height 158.75 cm DO Ed Jered Work Phone: [phone] [place] [address] 10-17-2023 15:14-0400 Body mass index (BMI) [Ratio] 20.3 kg/m2 DO Ed Jered Work Phone: [facility] 10-17-2023 15:14-0400 Body weight 51.25 kg DO Ed Jered Work Phone: [facility] 09-17-2023 15:31-0400 Diastolic blood pressure 84 mm[Hg] DO Ed Jered Work Phone: [facility] 09-17-2023 15:31-0400 Heart rate 81 /min DO Ed Jered Work Phone: [facility] 09-17-2023 15:31-0400 Respiratory rate 14 /min DO Ed Jered Work Phone: [facility] 09-17-2023 15:31-0400 SaO2% (BldA) [Mass fraction] 99 % DO Ed Jered Work Phone: [facility] 09-17-2023 15:31-0400 Systolic blood pressure 129 mm[Hg] DO Ed Jered Work Phone: [facility] 09-17-2023 12:47-0400 Body height 158.75 cm DO Ed Jered Work Phone: [facility] 09-17-2023 12:47-0400 Body weight 51.71 kg DO Ed Lawton Work Phone: [facility] 09-14-2023 15:37-0400 Body mass index (BMI) [Ratio] 20.01 kg/m2 Neville Yee MD Work Phone: [facility] 09-14-2023 15:37-0400 Body temperature 97.81 [degF] Neville Yee MD Work Phone: [facility] 09-14-2023 15:37-0400 Body weight 52.89 kg Neville Yee MD Work Phone: [facility] 09-14-2023 15:37-0400 Diastolic blood pressure 76 mm[Hg] Neville Yee MD Work Phone: [facility] 09-14-2023 15:37-0400 Heart rate 72 /min Neville Yee MD Work Phone: [facility] 09-14-2023 15:37-0400 Respiratory rate 18 /min Neville Yee MD Work Phone: [facility] 09-14-2023 15:37-0400 SaO2% (BldA) [Mass fraction] 96 % Neville Yee MD Work Phone: [facility] 09-14-2023 15:37-0400 Systolic blood pressure 120 mm[Hg] Neville Yee MD Work Phone: [facility] 08-23-2023 15:53-0400 Body mass index (BMI) [Ratio] 19.87 kg/m2 Neville Yee MD Work Phone: [facility] 08-23-2023 15:53-0400 Body temperature 97.59 [degF] Neville Yee MD Work Phone: [facility] 08-23-2023 15:53-0400 Body weight 52.5 kg Neville Yee MD Work Phone: [facility] 08-23-2023 15:53-0400 Diastolic blood pressure 81 mm[Hg] Neville Yee MD Work Phone: [facility] 08-23-2023 15:53-0400 Heart rate 77 /min Neville Yee MD Work Phone: [facility] 08-23-2023 15:53-0400 Respiratory rate 16 /min Neville Yee MD Work Phone: [facility] 08-23-2023 15:53-0400 SaO2% (BldA) [Mass fraction] 97 % Neville Yee MD Work Phone: [facility] 08-23-2023 15:53-0400 Systolic blood pressure 138 mm[Hg] Neville Yee MD Work Phone: [facility] 08-08-2023 13:58-0400 Body height 162.[address] [facility] 08-08-2023 13:58-0400 Body mass index (BMI) [Ratio] 19.3 kg/m2 PHYSICIAN [facility] 08-08-2023 13:58-0400 Body weight 51.[address] [facility] 08-08-2023 13:58-0400 Diastolic blood pressure 72 mm[Hg] PHYSICIAN [facility] 08-08-2023 13:58-0400 Heart rate 77 /min PHYSIC[facility] 08-08-2023 13:58-0400 SaO2% (BldA) [Mass fraction] 95 % PHYSICIAN [facility] 08-08-2023 13:58-0400 Systolic blood pressure 120 mm[Hg] PHYSICIAN [facility] 05-21-2023 13:11-0500 Body height 162.6 cm Geno River MD Work Phone: [facility] 05-21-2023 13:11-0500 Body mass index (BMI) [Ratio] 20.25 kg/m2 Geno River MD [facility] Phone: [facility] 05-21-2023 13:11-0500 Body weight 53.52 kg Geno River MD Work Phone: [facility] 05-21-2023 13:11-0500 Diastolic blood pressure 70 mm[Hg] Geno River MD Work Phone: [facility] 05-21-2023 13:11-0500 Heart rate 71 /min Geno River MD Work Phone: [facility] 05-21-2023 13:11-0500 SaO2% (BldA) [Mass fraction] 96 % Geno River MD Work Phone: [facility] 05-21-2023 13:11-0500 Systolic blood pressure 90 mm[Hg] Geno River MD Work Phone: [facility] 05-10-2023 11:31-0500 Body height 162.[address] [facility] 05-10-2023 11:31-0500 Body mass index (BMI) [Ratio] 20.4 kg/m2 PHYSICIAN [facility] 05-10-2023 11:31-0500 Body weight 53.[address] [facility] 05-10-2023 11:31-0500 Diastolic blood pressure 80 mm[Hg] PHYSICIAN [facility] 05-10-2023 11:31-0500 Heart rate 72 /min PHYSIC[facility] 05-10-2023 11:31-0500 SaO2% (BldA) [Mass fraction] 95 % PHYSICIAN [facility] 05-10-2023 11:31-0500 Systolic blood pressure 110 mm[Hg] PHYSICIAN [facility] 01-17-2023 14:30-0400 Body height 163.83 cm dE Lawton Other [employer] Other 01-17-2023 14:30-0400 Body mass index (BMI) [Ratio] 23.32 kg/m2 Ed Lawton Other [employer] Other 01-17-2023 14:30-0400 Body temperature 98.2 [degF] Ed Lawton Other [employer] Other 01-17-2023 14:30-0400 Body weight 62.6 kg Ed Lawton Other [employer] Other 01-17-2023 14:30-0400 Diastolic blood pressure 60 mm[Hg] Ed Lawton Other [employer] Other 01-17-2023 14:30-0400 SaO2% (BldA) [Mass fraction] 97 % Edpretty Lawton Other [employer] Other 01-17-2023 14:30-0400 Systolic blood pressure 90 mm[Hg] Ed Lawton Other [employer] Other 08-16-2022 15:00-0400 Body height 163.83 cm Ed Lawton Other [employer] Other 08-16-2022 15:00-0400 Body mass index (BMI) [Ratio] 26.53 kg/m2 Ed Lawton Other [employer] Other 08-16-2022 15:00-0400 Body temperature 97.7 [degF] Ed Lawton Other [employer] Other 08-16-2022 15:00-0400 Body weight 71.22 kg Ed Lawton Other [employer] Other 08-16-2022 15:00-0400 Diastolic blood pressure 60 mm[Hg] Ed Lawton Other [employer] Other 08-16-2022 15:00-0400 Respiratory rate 18 /min Ed Jered Other [employer] Other 08-16-2022 15:00-0400 SaO2% (BldA) [Mass fraction] 97 % Ed Lawton Other [employer] Other 08-16-2022 15:00-0400 Systolic blood pressure 96 mm[Hg] Ed Lawton Other [employer] Other 07-26-2022 16:00-0400 Body height 163.83 cm Ed Lawton Other [employer] Other 07-26-2022 16:00-0400 Body mass index (BMI) [Ratio] 26.26 kg/m2 Ed Lawton Other [employer] Other 07-26-2022 16:00-0400 Body temperature 97.4 [degF] Ed Lawton Other [employer] Other 07-26-2022 16:00-0400 Body weight 70.49 kg Ed Lawton Other [employer] Other 07-26-2022 16:00-0400 Diastolic blood pressure 74 mm[Hg] Ed Lawton Other [employer] Other 07-26-2022 16:00-0400 Respiratory rate 18 /min Ed Lawton Other [employer] Other 07-26-2022 16:00-0400 SaO2% (BldA) [Mass fraction] 95 % Ed Lawton Other [employer] Other 07-26-2022 16:00-0400 Systolic blood pressure 104 mm[Hg] Ed Jered Other [employer] Other 03-15-2022 16:00-0500 Body height 163.83 cm Drew White Other [employer] Other 03-15-2022 16:00-0500 Body mass index (BMI) [Ratio] 30.37 kg/m2 Drew Bobbyks Other [employer] Other 03-15-2022 16:00-0500 Body temperature 98.1 [degF] Drew White Other [employer] Other 03-15-2022 16:00-0500 Body weight 81.51 kg Drew White Other [employer] Other 03-15-2022 16:00-0500 Diastolic blood pressure 84 mm[Hg] Drew White Other [employer] Other 03-15-2022 16:00-0500 Respiratory rate 18 /min Drew Bobbyks Other [employer] Other 03-15-2022 16:00-0500 SaO2% (BldA) [Mass fraction] 98 % Drew Binks Other [employer] Other 03-15-2022 16:00-0500 Systolic blood pressure 122 mm[Hg] Drew Binks Other [employer] Other 01-25-2022 16:00-0500 Body height 163.83 cm Ed Lawton Other [employer] Other 01-25-2022 16:00-0500 Body mass index (BMI) [Ratio] 31.21 kg/m2 Ed Lawton Other [employer] Other 01-25-2022 16:00-0500 Body weight 83.78 kg Ed Lawton Other [employer] Other 01-25-2022 16:00-0500 Diastolic blood pressure 84 mm[Hg] Ed Lawton Other [employer] Other 01-25-2022 16:00-0500 Respiratory rate 18 /min Ed Lawton Other [employer] Other 01-25-2022 16:00-0500 SaO2% (BldA) [Mass fraction] 97 % Ed Lawton Other [employer] Other 01-25-2022 16:00-0500 Systolic blood pressure 104 mm[Hg] Ed Lawton Other [employer] Other 07-25-2021 16:15-0400 Body height 163.83 cm Ed Lawton Other [employer] Other 07-25-2021 16:15-0400 Body mass index (BMI) [Ratio] 30.47 kg/m2 Ed Lawton Other [employer] Other 07-25-2021 16:15-0400 Body weight 81.78 kg Ed Lawton Other [employer] Other 07-25-2021 16:15-0400 Diastolic blood pressure 60 mm[Hg] Ed Jered Other [facility] [employer] Other 07-25-2021 16:15-0400 Respiratory rate 18 /min Ed Jered Other [facility] [employer] Other 07-25-2021 16:15-0400 SaO2% (BldA) [Mass fraction] 95 % Ed Jered Other [facility] [employer] Other 07-25-2021 16:15-0400 Systolic blood pressure 120 mm[Hg] Ed Lawton Other [facility] [employer] Other 07-14-2021 11:29-0400 Diastolic blood pressure 60 mm[Hg] Ed Lawton Work Phone: [facility] [employer] DO Work Phone: 07-14-2021 11:29-0400 Systolic blood pressure 88 mm[Hg] Ed Lawton Work Phone: [facility] [employer] DO Work Phone: 07-14-2021 11:27-0400 Body height 162.56 cm Ed Lawton Work Phone: [facility] [email or web address] DO Work Phone: 07-14-2021 11:27-0400 Body mass index (BMI) [Ratio] 30.9 kg/m2 Ed Lawton Work Phone: [facility] [employer] DO Work Phone: 07-14-2021 11:27-0400 Body surface area Derived from formula 1.87 m2 Ed Lawton Work Phone: [facility] [email or web address] 250 DO Work Phone: 07-14-2021 11:27-0400 Body weight 81.65 kg Ed Lawton Work Phone: [facility] [employer] 250 DO Work Phone: 07-14-2021 11:27-0400 Heart rate 73 /min Ed Nikhil Jered Work Phone: [facility] DO Work Phone: 06-27-2021 10:31-0400 Body height 162.56 cm Ed Nikhil CurtisJered Work Phone: [facility] [facility] DO Work Phone: 06-27-2021 10:31-0400 Body mass index (BMI) [Ratio] 30.9 kg/m2 Ed Nikhil CurtisJered Work Phone: [facility] 250 DO Work Phone: 06-27-2021 10:31-0400 Body surface area Derived from formula 1.87 m2 Ed Nikhil Jered Work Phone: [facility] 250 DO Work Phone: 06-27-2021 10:31-0400 Body weight 81.65 kg Ed Nikhil CurtisJered Work Phone: [facility] 250 DO Work Phone: 06-27-2021 10:31-0400 Diastolic blood pressure 72 mm[Hg] Ed Nikhil Jered Work Phone: [facility] 250 DO Work Phone: 06-27-2021 10:31-0400 Heart rate 67 /min Ed Nikhil CurtisJered Work Phone: [facility] 250 DO Work Phone: 06-27-2021 10:31-0400 Systolic blood pressure 98 mm[Hg] Ed Lawton Work Phone: [facility] [employer] 250 DO Work Phone: 06-16-2021 00:00-0400 40 1 Ed Lawton Work Phone: [facility] 250 DO Work Phone: Comment on above: [id number] 06-07-2021 14:54-0400 Diastolic blood pressure 78 mm[Hg] Ed Lawton Work Phone: [facility] 250 DO Work Phone: 06-07-2021 14:54-0400 Systolic blood pressure 120 mm[Hg] Ed Lawton Work Phone: [facility] 250 DO Work Phone: 06-07-2021 14:51-0400 Body height 162.56 cm Ed Lawton Work Phone: [facility] 250 DO Work Phone: 06-07-2021 14:51-0400 Body mass index (BMI) [Ratio] 31.58 kg/m2 Ed Lawton Work Phone: [facility] 250 DO Work Phone: 06-07-2021 14:51-0400 Body surface area Derived from formula 1.89 m2 Ed Lawton Work Phone: [facility] 250 DO Work Phone: 06-07-2021 14:51-0400 Body weight 83.46 kg Ed Lawton Work Phone: [facility] 250 DO Work Phone: 06-07-2021 14:51-0400 Diastolic blood pressure 80 mm[Hg] Ed Lawton Work Phone: [facility] 250 DO Work Phone: 06-07-2021 14:51-0400 Heart rate 56 /min Ed Lawton Work Phone: [facility] 250 DO Work Phone: 06-07-2021 14:51-0400 Systolic blood pressure 126 mm[Hg] Ed Lawton Work Phone: [facility] 250 DO Work Phone: 05-04-2021 10:52-0500 75.8 1 Ed Nikhil CurtisJered Work Phone: [facility] 250 DO Work Phone: Comment on above: [facility]GED WITH [facility] 04-28-2021 11:43-0500 Diastolic blood pressure 80 mm[Hg] Ed Lawton Work Phone: [facility] 250 DO Work Phone: 04-28-2021 11:43-0500 Systolic blood pressure 142 mm[Hg] Ed Lawton Work Phone: [facility] 250 DO Work Phone: 04-28-2021 11:29-0500 Diastolic blood pressure 71 mm[Hg] Ed Lawton Work Phone: [facility] 250 DO Work Phone: 04-28-2021 11:29-0500 Systolic blood pressure 178 mm[Hg] Ed Lawton Work Phone: [facility] 250 DO Work Phone: 04-28-2021 11:27-0500 Body height 157.48 cm Ed Lawton Work Phone: [facility] 250 DO Work Phone: 04-28-2021 11:27-0500 Body mass index (BMI) [Ratio] 34.75 kg/m2 Ed Lawton Work Phone: [facility] [employer] 250 DO Work Phone: 04-28-2021 11:27-0500 Body surface area Derived from formula 1.87 m2 Ed Lawton Work Phone: [facility] [employer] 250 DO Work Phone: 04-28-2021 11:27-0500 Body weight 86.18 kg Ed Lawton Work Phone: [facility] [employer] 250 DO Work Phone: 04-28-2021 11:27-0500 Diastolic blood pressure 99 mm[Hg] Ed Lawton Work Phone: [facility] [employer] 250 DO Work Phone: 04-28-2021 11:27-0500 Heart rate 163 /min Ed Lawton Work Phone: [facility] [employer] 250 DO Work Phone: 04-28-2021 11:27-0500 Systolic blood pressure 178 mm[Hg] Ed Lawton Work Phone: [facility] [email or web address] 250 DO Work Phone: 01-26-2021 14:00-0500 Body height 163.83 cm Ed Lawton Other [employer] [facility] test company Other 01-26-2021 14:00-0500 Body mass index (BMI) [Ratio] 34.62 kg/m2 Ed Lawton Other [employer] Other 01-26-2021 14:00-0500 Body temperature 98.8 [degF] Ed Lawton Other [employer] Other 11-10-2021 14:00-0500 Body weight 92.94 kg Ed Jered Other [employer] Other 01-26-2021 14:00-0500 Diastolic blood pressure 88 mm[Hg] Ed Lawton Other [employer] Other 01-26-2021 14:00-0500 Respiratory rate 18 /min Ed Lawton Other [employer] Other 01-26-2021 14:00-0500 SaO2% (BldA) [Mass fraction] 94 % Ed Lawton Other [employer] Other 01-26-2021 14:00-0500 Systolic blood pressure 132 mm[Hg] Ed Lawton Other [employer] Other Encounters Encounter Date Encounter Type Care Provider Facility Start: 11-14-2023 End: 11-14-2023 ambulatory DO Ed Lawton Work Phone: [facility] Work Phone: Start: 11-14-2023 End: 11-14-2023 Patient encounter procedure DO Ed Lawton Work Phone: [facility] [place] Work Phone: Start: 10-30-2023 Registered Recurring DO Golden Lawton Work Phone: [facility] Start: 10-30-2023 ambulatory PHYSICIAN NO FAMILY Facility:[facility] Start: 10-23-2023 ambulatory [facility] Start: 10-17-2023 End: 10-17-2023 ambulatory DO Ed Lawton Work Phone: [facility] Work Phone: Start: 10-17-2023 End: 10-17-2023 Patient encounter procedure DO Ed Lawton Work Phone: [facility] Work Phone: Start: 09-25-2023 Non-patient / Non-visit DO Tomasz Lawton Work Phone: [facility] Work Phone: Start: 09-18-2023 Non-patient / Non-visit DO Mat thejulien CurtisJered Work Phone: [facility] Work Phone: Start: 09-17-2023 Non-patient / Non-visit DO Mat thejulien Lawton Work Phone: [facility] Work Phone: Start: 09-17-2023 End: 09-17-2023 Admission to same day surgery center DO Edpretty Lawton Work Phone: [facility] Work Phone: Start: 09-17-2023 End: 09-17-2023 ambulatory Ed Lawton Facility:[facility] Start: 09-14-2023 End: 09-14-2023 ambulatory ED [place] Facility:[facility] Start: 09-14-2023 End: 09-14-2023 Office outpatient visit 25 minutes Neville Yee MD Work Phone: Hematology/Oncology Comment on above: 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) (Primary Dx); Abnormal weight loss Start: 09-10-2023 End: 09-10-2023 ambulatory ED [place] Facility:[facility] Start: 09-06-2023 Registered Recurring DO Golden Lawton Work Phone: [facility] Start: 09-05-2023 Telephone encounter Maicol Tejeda Hematology/Oncology Start: 09-05-2023 End: 09-05-2023 Patient encounter procedure DO Ed Lawton Work Phone: [facility] Work Phone: Start: 09-05-2023 End: 09-05-2023 ambulatory DO Ed Lawton Work Phone: [facility] Work Phone: Start: 08-28-2023 Registered Recurring DO Golden Lawton Work Phone: [facility] Start: 08-23-2023 End: 08-23-2023 Office outpatient new 60 minutes Neville Yee MD Work Phone: Hematology/Oncology Comment on above: 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) (Primary Dx); Abnormal weight loss; Diffuse large B-cell lymphoma of solid organ excluding spleen (HCC); Bipolar II disorder (HCC) Start: 08-23-2023 Non-patient / Non-visit DO Tomasz bahena Ejred Work Phone: [facility] Work Phone: Start: 08-23-2023 End: 08-23-2023 ambulatory ED [place] Facility:[facility] Start: 08-15-2023 End: 08-15-2023 Patient encounter procedure PHYSICIAN NO [facility] Work Phone: Start: 08-15-2023 End: 08-15-2023 ambulatory PHYSICIAN NO [facility] Work Phone: Start: 08-09-2023 Registered Recurring PHYSICIAN NO [facility] Start: 08-08-2023 End: 08-08-2023 ambulatory PHYSICIAN NO [facility] Work Phone: Start: 08-08-2023 End: 08-08-2023 Patient encounter [facility] [place] Work Phone: Start: 07-27-2023 Chart abstracting Neville ridley MD Work Phone: Hematology/Oncology Start: 06-13-2023 Registered Recurring PHYSICIAN NO [facility] Start: 05-21-2023 End: 05-21-2023 Office outpatient visit 25 minutes Geno River MD Work Phone: [facility] Comment on above: Paroxysmal atrial fi brillation (CMS-HCC) (Primary Dx); Coronary artery disease involving nenana coronary artery of nenana heart, unspecified whether angina present; Primary hypertension; Ischemic cardiomyopathy; Hyperlipidemia, unspecified hyperlipidemia type Start: 05-18-2023 Telephone encounter Noris nelson CMA [facility] Start: 05-16-2023 Non-patient / Non-visit PHYSIC AKIRA [facility] Professional [employer] Work Phone: Start: 05-10-2023 End: 05-10-2023 ambulatory PHYSICIAN NO [facility] Work Phone: Start: 05-10-2023 End: 05-10-2023 Patient encounter procedure PHYSICIAN NO [facility] [place] Work Phone: Start: 04-27-2023 Refill [facility] Fritz [facility] Comment on above: Med Refill Start: 02-13-2023 Registered Recurring PHYSICIAN NO [facility] Start: 02-02-2023 End: 02-02-2023 ambulatory Ed Lawton Other [employer] Other Start: 02-02-2023 Telephone encounter Ed Duque [facility] [place] Start: 01-17-2023 End: 01-17-2023 ambulatory Ed Lawton Other [employer] Other Start: 01-17-2023 Office outpatient vi sit 25 minutes Ed Lawton [facility] [place] Start: 10-06-2022 End: 10-06-[address] [facility] Work Phone: Start: 10-06-2022 End: 10-06-2022 Patient encounter procedure PHYSICIAN NO [facility] Work Phone: Start: 08-16-2022 End: 08-16-2022 ambulatory Ed Lawton Other [employer] Other Start: 08-16-2022 Office outpatient vi sit 15 minutes Ed Lawton [facility] [place] Start: 08-09-2022 End: 08-10-2022 ambulatory ED [place] Facility:[facility] Start: 07-26-2022 End: 07-26-2022 ambulatory Ed Lawton Other [employer] Other Start: 07-26-2022 Encounter for genera l adult medical examination without abnormal findings Ed Lawton [facility] [place] Start: 07-26-2022 Patient encounter procedure Ed Lawton [facility] [place] Start: 07-25-2022 Registered Recurring PHYSICIAN NO [facility] Start: 06-26-2022 End: 06-27-[address] ED SNYDER Facility:[facility] Start: 06-06-2022 End: 06-06-2022 ambulatory Ed Lawton Other [employer] Other Start: 06-06-2022 Telephone encounter Ed Duque [facility] [place] Start: 05-29-2022 Rx Renewal Ed Estevez er Work Phone: [facility] 250 DO Work Phone: Start: 05-02-2022 End: 05-02-[address] [facility] Work Phone: Start: 05-02-2022 End: 05-02-2022 Patient encounter procedure PHYSICIAN NO [facility] [address] Work Phone: Start: 03-15-2022 End: 03-15-2022 Departed Referred PHYSICIAN NO [facility] [place] Work Phone: Start: 03-15-2022 End: 03-15-2022 ambulatory Drew White Other [employer] Other Start: 03-15-2022 Office outpatient vi sit 15 minutes Drew Cindy [facility] [place] Start: 02-12-2022 End: 02-12-2022 ambulatory Ed Lawton Other [employer] Other Start: 02-12-2022 Telephone encounter Ed Lawton [facility] [place] Start: 01-31-2022 End: 02-01-2022 ambulatory ED [place] Facility:[facility] Start: 01-25-2022 End: 01-25-2022 ambulatory Ed Lawton Other [employer] Other Start: 01-25-2022 Office outpatient vi sit 25 minutes Ed Lawton [facility] [place] Start: 09-29-2021 End: 09-30-[address] DOCTOR WORKMAN Facility:[facility] Start: 09-16-2021 End: 10-14-2021 ambulatory SHAIKH Tova CHILDRESS Facility:[facility] Start: 08-23-2021 End: 08-23-2021 ambulatory Ed Lawton Other [employer] Other Start: 08-23-2021 Telephone encounter Ed Lawton [facility] [place] Start: 08-18-2021 Rx Renewal Ed Estevez er Work Phone: [facility] 250 DO Work Phone: Start: 07-28-2021 End: 07-28-2021 ambulatory Ed Lawton Other [employer] Other Start: 07-28-2021 Telephone encounter Ed Curtismer [facility] [place] Start: 07-25-2021 End: 07-25-2021 ambulatory Ed Lawton Other [employer] Other Start: 07-25-2021 Office outpatient vi sit 15 minutes Ed Curtismer [facility] [place] Start: 07-25-2021 Patient encounter procedure Ed Lawton [facility] [place] Start: 07-21-2021 EKG, Provider: ELIJAH LANGLEY CUT OFF MACHINE OPERATOR 1,[id number], Status: Pen, Time: 2:00 PM Ed Lawton Work Phone: [facility] 250 DO Work Phone: Start: 07-15-2021 Rx Renewal Ed Estevez er Work Phone: [facility] 250 DO Work Phone: Start: 07-14-2021 Office outpatient vi sit 40 minutes Ed Lawton Work Phone: [facility] 250 DO Work Phone: Start: 07-08-2021 Rx Renewal Ed Estevez er Work Phone: [facility] 250 DO Work Phone: Start: 06-27-2021 Patient encounter procedure Ed Lawton Work Phone: [facility] 250 DO Work Phone: Start: 06-07-2021 Office outpatient vi sit 10 minutes Ed Lawton Work Phone: [facility] 250 DO Work Phone: Start: 06-06-2021 End: 06-06-2021 ambulatory Ed Lawton Other [facility] test company Other Start: 06-06-2021 Telephone encounter Ed Duque [facility] [place] Start: 06-01-2021 Rx Renewal Ed Estevez er Work Phone: [facility] 250 DO Work Phone: Start: 04-28-2021 Office outpatient vi sit 25 minutes Ed Nikhil CurtisJered Work Phone: [facility] 250 DO Work Phone: Start: 04-12-2021 Rx Renewal Ed Estevez er Work Phone: [facility] 600 DO Work Phone: Start: 03-17-2021 Rx Renewal Ed Estevez er Work Phone: [facility] 250 DO Work Phone: Start: 03-03-2021 Rx Renewal Ed Estevez er Work Phone: [facility] 250[place] Work Phone: Start: 01-26-2021 End: 01-26-2021 ambulatory Ed Lawton Other [facility] test company Other Start: 01-26-2021 Office outpatient vi sit 25 minutes Ed Lawton [facility] Procedures Date Procedure Procedure Detail Performing Clinician Start: 09-17-2023 Esophagogastroduodenoscopy DO Ed Christiane salas Work Phone: Start: 09-05-2023 Dual energy X-ray absorptiometry DO Osman Lawton Work Phone: Start: 08-23-2023 Lipid 1996 panel - Serum or Plasma Neville Yee MD Work Phone: Start: 05-21-2023 Ecg routine ecg w/least 12 lds w/i&r Geno River MD Work Phone: Start: 03-15-2022 Urine culture PHYSICIAN NO FAMILY History of placement of stent in anterior descending branch of left coronary artery Ed Lawton Other History of placement of stent in anterior descending branch of left coronary artery 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 (LAD) artery PHYSICIAN NO FAMILY Plan of Treatment Date Care Activity Detail Author Start: 08-22-2028 Lipid panel Lipid Screening [facility] Start: 08-22-2026 Diabetes Screening Diabetes Screenin g [facility] Start: 05-20-2024 Adult BMI Screening Adult BMI Screen ing [facility] Start: 05-20-2024 Tobacco Screening Tobacco Screening [facility] Start: 11-18-2023 Influenza vaccination Influenz a Vaccine (Season Ended) [facility] Start: 09-17-2023 [facility] Start: 09-15-2023 Adult BMI Screening Adult BMI Screen ing [facility] Start: 09-15-2023 Tobacco Screening Tobacco Screening [facility] Start: 09-14-2023 End: 09-14-2023 Follow-up encounter 09/14/2023 3:45 PM EDT Visit (SP) Office Hematology/Oncology [address] [place] [address] Neville Yee MD [address] [place] [address] follow up after PET scan to review results Hematology/Oncology Comment on above: follow up after PET scan to review results Start: 09-10-2023 End: 09-10-2023 Patient encounter procedure 09/10/2023 1:30 PM EDT Appointment Radiology Pet CT [address] [place] [address] Comment on above: PET Start: 08-08-2023 Patient referral [facility] Work Phone: Start: 08-01-2023 End: 08-01-2023 FQ visit new patient 08/01/2023 3:30 PM EDT Visit (SP) Office Hematology/Oncology [address] [place] [address] Neville Yee MD [address] [place] [address] New Patient Hematology/Oncology Comment on above: New Patient Start: 05-21-2023 End: 05-21-2023 Patient encounter procedure 05/21/2023 1:15 PM EST Office Visit [facility] [address] [place] [address] Geno River MD [address] [place] [address] [facility] Start: 03-19-2023 Behavioral Health Screening Behavioral Health Screening [facility] Start: 11-17-2022 COVID-19 Vaccine ( season) COVID-19 Vaccine () [facility] Start: 11-17-2022 Influenza vaccination Influenza Vacc ine [facility] Start: 10-29-2022 Diabetes Screening Diabetes Screenin g [facility] Start: 10-06-2022 Screening mammograph y of bilateral breasts MM screening mammo BI w/CAD [facility] Start: 11-08-2021 FUV, Provider: Marty Lynn, Status: Pen, Time: 11:10 AM FUV, Provider: Marty Lynn, Status: Pen, Time: 11:[address] [facility] 250 DO Work Phone: Start: 10-11-2021 ECHO, Provider: RAHUL MACIAS [facility] 01,[id number], Status: Pen, Time: 1:30 PM ECHO, Provider: SONIA [facility]TRASOUND ,[id number], Status: Pen, Time: 1:[address] [facility] 250 DO Work Phone: Start: 07-21-2021 EKG, Provider: ELIJAH LANGLEY CUT OFF MACHINE OPERATOR 1,[id number], Status: Pen, Time: 2:00 PM EKG, Provider: ELIJAH LANGLEY CUT OFF MACHINE OPERATOR 1,[id number], Status: Pen, Time: 2:00 PM [facility] 250 DO Work Phone: Start: 07-14-2021 FUV, Provider: Marty Lynn, Status: Pen, Time: 11:10 AM FUV, Provider: Marty Lynn, Status: Pen, Time: 11:10 AM [facility] 250 DO Work Phone: Start: 06-07-2021 NURSEVST, Provider: ELIJAH LANGLEY CUT OFF MACHINE OPERATOR 1,[id number], Status: Pen, Time: 2:30 PM NURSEVST, Provider: ELIJAH LANGLEY CUT OFF MACHINE OPERATOR 1,[id number], Status: Pen, Time: 2:30 PM [facility] 250 DO Work Phone: Start: 03-22-2021 FUV, Provider: Marty Lynn, Status: Pen, Time: 1:45 PM FUV, Provider: Marty Lynn, Status: Pen, Time: 1:45 PM [facility] 250A [place] Work Phone: Start: 02-27-2019 Pneumococcal vaccination Pneum ococcal Vaccine (2 of 2 - PPSV23 or PCV20) [facility] Start: 2019 RSV Vaccine (1 - 1-d ose 60+ series) RSV Vaccine (1 - 1-dose 60+ series) [facility] Start: 2009 Administration of varicella zoster vaccine Zoster (Shingles) Vaccine (1 of 2) [facility] Start: 2009 Shingrix Vaccine (1 of 2) Jain grix Vaccine (1 of 2) [facility] Start: 02-07-2004 Lipid panel Lipid Screening [facility] Start: 02-07-2004 Screening for malign ant neoplasm of colon [facility] Start: 1999 Screening for malign ant neoplasm of breast Mammogram Screening [facility] Start: 1989 Screening for malign ant neoplasm of cervix HPV Testing [facility] Start: 02-07-1980 Screening for malign ant neoplasm of cervix [facility] Start: 1978 DTaP,Tdap and Td Vac cines (1 - Tdap) DTaP,Tdap and Td Vaccines (1 - Tdap) [facility] Start: 1978 Urine microalbumin profile DTaP,Tdap,Td Vaccine (1 - Tdap) [facility] Start: 1977 Adult BMI Follow Up Plan Adult BMI Follow Up Plan [facility] Start: 1977 HIV screening HIV Screening [facility] Start: 1971 Depression Screening Depression Scre ening [facility] Start: 1959 Tobacco Counseling Tobacco Counselin g [facility] Barium swallow [facility] Comprehensive metabo lic 1999 panel - Serum or Plasma [facility] Comprehensive metabo lic 1999 panel - Serum or Plasma [facility] DXA Skeletal system. axial Views for bone density [facility] Patient Education Colon polyps Hemorrhoids (DC) Esophageal Dilation Hiatal Hernia (DC) Esophageal Stricture (DC) Know your Meds [facility] Work Phone: Patient referral [facility] Work Phone: End: 09-21-2024 PET+CT Guidance for localization of tumor of Skull base to mid-thigh-- W [id number] IV NM PET/CT SKULL-THIGH INITIAL Radiology Routine Diffuse large B-cell lymphoma of solid organ excluding spleen (HCC) 1 Occurrences starting 08/23/2023 until 09/21/2024 [facility] Work Phone: Comment on above: 1 Occurrences starti ng 08/23/2023 until 09/21/2024 POCT EKG POCT EKG ECG Rou tanner Paroxysmal atrial fibrillation (CMS-HCC) Coronary artery disease involving nenana coronary artery of nenana heart, unspecified whether angina present 05/21/2023 [facility] Work Phone: [facility] Immunizations Immunization Date Immunization Notes Care Provider Clayton barnes 02-25-2021 Pfizer-BioNTech COVI D-19 Vacc 30 MCG/0.3ML Intramuscular Suspension Ed Lawton Work Phone: [facility] 06-21-2020 Pfizer-BioNTech COVI D-19 Vacc 30 MCG/0.3ML Intramuscular Suspension Ed Lawton Work Phone: [facility] 05-29-2020 Pfizer-BioNTech COVI D-19 Vacc 30 MCG/0.3ML Intramuscular Suspension Ed Lawton Work Phone: [facility] 01-02-2019 pneumococcal conjuga te vaccine, 13 valent Ed Lawton Work Phone: [facility] Payers Date Payer Category Payer Medicare [id number] 2022 Self-pay [id number] 2021 Medicare [id number] 1960 Medicare [id number] 2. [id number] 1959 Unknown [id number] 2.16.84 [id number] 1959 Unknown [id number] 2.16.84 [id number] 1959 Unknown [id number] 2.16.84 [id number] 1959 Unknown [id number] 2.16.84 [id number] 1959 Unknown [id number] 2.16.84 [id number] 1959 Unknown [id number] 2.16.84 [id number] Medicaid [employer] [id number] Medicare Medicare [id number] Unknown Unknown HCAP/HFA/FAP Active [id number] Unknown [id number] 2.16.8 [id number] Unknown [id number] 2.16.8 [id number] Unknown [id number] 2.16.8 [id number] Unknown [id number] 2.16.8 [id number] Social History Date Type Detail Facility Start: 09-14-2022 End: 08-23-2023 Daily caffeine consumption Daily caffeine consumption -[facility] 250 DO Work Phone: Comment on above: 2 CUPS OF COFFEE IN AM; Start: 10-27-2019 End: 08-23-2023 Sex Assigned At [facility] test company Other Start: 06-16-2021 End: 09-17-2023 Tobacco smoking status [facility] Smoker (finding) [facility] Start: 1960 Sex Assigned At Female F [facility] Start: 09-14-2022 End: 07-27-2023 Tobacco smoking status COIS Smokes tobacco daily [facility] History of tobacco use Cigarette Smoker P [facility] Start: 09-14-2022 Tobacco use and exposure Smokeless tobacco non-user [facility] Start: 09-14-2022 End: 05-21-2023 Alcohol intake Lifetime non-drinker (finding) [facility] How often to you hav e a drink containing alcohol? Never [facility] Average Number of Drinks Not on file [facility] Start: 1960 Sex Assigned At Not on file P [facility] History of tobacco use Passive smoker [facility] Start: 08-18-2023 Gender identity Identifies as female gender (finding) [facility] Equipment Procedure Code Equipment Code Equipment Origin al Text Equipment Identifier Dates CL STENT RAVEN 3.0 X 12 FDA Start: 05-10-2018 CL STENT RAVEN 3.0 X 12 FDA Start: 05-10-2018 Recorder Crd Mary Ellen q Ii Ins - [id number] - [id number] Start: 11-18-2021 CL STENT RAVEN 3.0 X 12 FDA Start: 05-10-2018 CL STENT RAVEN 3.0 X 12 FDA Start: 05-10-2018 CL STENT RAVEN 3.0 X 12 FDA Start: 05-10-2018 CL STENT RAVEN 3.0 X 12 FDA Start: 05-10-2018 CL STENT RAVEN 3.0 X 12 FDA Start: 05-10-2018 CL STENT RAVEN 3.0 X 12 FDA Start: 05-10-2018 Goals Date Patient Goal Desired Activity /State Clinical Notes 06-06-2021 to 10-17-2023 Note Date & Type Note Facility 10-17-2023 Evaluation note Authored October 17, 2023 3:41 pm Patient is positive for occa sional dyspepsia, intermittent dysphagia, patient has been maintaining her weight at this point. [facility] Work Phone: 1(701) 377-255206-28-2024 Instructions* Patient Instructions* Oneida Alegre - 09/14/2023 4:02 PM EDT RTC PRN documented in this [facility]-28-[facility]24 History of Present illness Narrative* Neville Yee MD - 09/14/2023 3:45 PM EDT Images from the original note were not included. NAME: Arian Fritz [facility] NO.: [id number] DATE OF SERVICE: September 14, 2023 (Kirit) Some elements in this clinic note that are critical to medical decision making have been carefully reviewed and included from a prior clinic note dated: August 23, 2023 (Kirit) Referring Provider: Self Referred Additional Clinicians involved in Arian Fritz's care: DIAGNOSIS: History of NHL 2004 Abnormal weight loss. ASSESSMENT: 63 year old woman with a history of NHL diagnosed after a liver biopsy. Currently is concerned with abnormal weight loss and possible recurrence of disease. PET/CT was negative. No apparent malignant cause of symptoms were able to be identified at this time. PLAN: RTC PRN HPI: CASE HISTORY: Reverse Chronological Order 09/10/2023 - PET/CT: CHEST: FDG avid subcentimeter right axillary lymph node, probably reactive from radiotracer injection in the right upper extremity. Abnormally dilated pulmonary vessels in the lingula, suggestive of pulmonary arteriovenous malformation. HEAD/NECK, ABDOMEN/PELVIS, MUSCULOSKELETAL: No FDG avid neoplastic process. Followed with Dr. Kurt Ballard for NHL 05/11/2006 - CT CAP: Chest: there are some mild old inflammatory changes, but no adenopathy or mass is seen within the chest. No convincing change. A/P: Small hepatic abnormalities, smaller than before. No new hepatic abnormalities seen. No adenopathy. Bilateral L5 pars defects. Small hiatal hernia. No pelvis abnormality identified 09/20/2004 - CT CAP: Chest: The previously demonstrated pulmonary nodules are no longer visualized. Lungs are now clear.The enlarged mediastinal lymph nodes noted on the prior study have markedly decreased in size (largest is 7 x 8 mm) in the precarinal region. A/P: Marked decrease in size of the liver metastases. Several small hypodense lesions persist as described above. There are multiple linear areas of low attenuation within the liver probably secondary to fibrotic scars. No significant pelvis abnormality. 04/21/2004 - CT CAP: Chest: No mediastinal or axillary lymphadenopathy. A/P: Multiple low areas of attenuation in the liver have decreased in number and size compared to the study of December 30, 2003. No abnormal mass or pelvis lymphadenopathy. 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 These were also noted on 09/15/[address] and I do not see any obvious change. Small hiatal hernia. Questionable small ovarian cysts. This could be further evaluated with ultrasound. Pelvis otherwise unremarkable. 09/15/2003 - CT Chest: Multiple bilateral upper lobe nodules and mediastinal lymphadenopathy with associated evidence of metastatic liver disease and lymphadenopathy noted in the region of the celiac trunk origin. The differential diagnosis includes lymphoproliferative disorder such as lymphoma as well as metastatic disease related to a neoplasm of unknown etiology. The most likely causes would be adenocarcinoma from either the breast or GI tract. Melanoma could result in these findings. Updated Visit, September 14, 2023: Arian returns today with Cora. Her PET scan shows no evidence of NHL recurrence. She has gained 1lbsince her last visit. EGD/colonoscopy next week. She may RTC with me PRN. Initial Visit, August 23, 2023: Arian Fritz presents today for a Hematology and Oncology evaluation. She is joined by her daughter, Cora. She is a 63 year old female who was diagnosed with Non Hodgkin's lymphoma with metastases to the liver and lung in 2003. She completed chemotherapy with Dr. Kurt Ballard in 03/2004 and has had no evidence of recurrence. She now reports unintentional weight loss - 70lbs in 3 months. Denies fever, chills, and night sweats. Endorses normal bowel movements. Her appetite has been stable, she is supplementing with Ensure drinks. Increasing memory problems recently. She has an EGD/Colonoscopy scheduled. She is a current smoker - 8-10 cigarettes a day. She had nausea, vomiting, and diarrhea while taking a magnesium supplement in the past. She has a history or COPD, CHF, and AFIB. She has not had AFIB since 2019 when she got the loop implant. She takes Eliquis for a history of CVA in 2001. She mentions a history of delirium when admitted in hospitals. REVIEW OF SYSTEMS Per HPI and otherwise negative by full review of organ systems. ECOG PERFORMANCE STATUS: 1 PHYSICAL EXAMINATION: Vitals: BP 120/76 Pulse 72 Temp (Src) 97.8 (Temporal) Resp 18 Wt 116 lb 9.6 oz (52.9kg) SpO2 96% Body surface area is 1.55 meters squared. Exam limited to gross visualization where appropriate. Gen.: This is an age-appropriate patient in no acute distress. Head: Appears atraumatic with no visible lesions. Eyes: Pupils equally round and reactive to light, extraocular muscles are intact. Neck: Supple. Respiratory: Appears to be respiring comfortably. Neurologic: Nonfocal to gross visualization. Alert and oriented 3. Psychiatric: No evidence of inappropriate anxiety or depression. Skin: Visible areas of skin without rash, lesions, wounds or petechiae. ALLERGIES: ALLERGIES Allergen Reactions Prochlorperazine Intolerance compazine MEDICATIONS: ALPRAZolam 1 mg dissolvable tablet Take 1 mg by mouth once daily. apixaban (ELIQUIS) 5 mg tab(s) Take by mouth two times a day. empagliflozin (JARDIANCE) 25 mg tablet Take 25 mg by mouth daily with breakfast. furosemide (LASIX) 20 mg tablet Take 20 mg by mouth once daily. metoprolol succinate ER (TOPROL XL) 25 mg 24 hr tablet Take 12.5 mg by mouth once daily. pantoprazole DR (PROTONIX) 40 mg tablet Take 40 mg by mouth once daily. potassium chloride (KLOR-CON M10 ORAL) Take 10 mEq by mouth once daily. amitriptyline (ELAVIL) 25 mg tablet Take 25 mg by mouth. albuterol HFA (PROVENTIL HFA, VENTOLIN HFA) 90 mcg/actuation inhaler Inhale 2 Puffs as instructed. atorvastatin (LIPITOR) 40 mg tablet Take 40 mg by mouth daily at bedtime. ASPIRIN 81MG TABLET Take one (1) tablet daily . magnesium glycinate 100 mg magnesium capsule Take 1 capsule by mouth once daily. (Patient not taking: Reported on 09/14/2023) LABORATORY VALUES: WBC (k/uL) Date Value 08/23/2023 6.65 RBC (m/uL) Date Value 08/23/2023 4.57 Hemoglobin (g/dL) Date Value 08/23/2023 12.2 Hematocrit (%) Date Value 08/23/2023 38.8 MCV (fL) Date Value 08/23/2023 84.9 MCH (pg) Date Value 08/23/2023 26.7 MCHC (g/dL) Date Value 08/23/2023 31.4 RDW-CV (%) Date Value 08/23/2023 14.6 Platelet Count (k/uL) Date Value 08/23/2023 355 MPV (fL) Date Value 08/23/2023 10.2 Glucose (mg/dL) Date Value 08/23/2023 92 BUN (mg/dL) Date Value 08/23/2023 6 (L) Creatinine (mg/dL) Date Value 08/23/2023 0.78 Sodium (mmol/L) Date Value 08/23/2023 139 Potassium (mmol/L) Date Value 08/23/2023 3.7 Chloride (mmol/L) Date Value 08/23/2023 103 CO2 (mmol/L) Date Value 08/23/2023 24 Protein, Total (g/dL) Date Value 08/23/2023 8.0 Albumin (g/dL) Date Value 08/23/2023 3.8 (L) Calcium, Total (mg/dL) Date Value 08/23/2023 10.0 Alkaline Phosphatase (U/L) Date Value 08/23/2023 123 Bilirubin, Total (mg/dL) Date Value 08/23/2023 0.4 AST (U/L) Date Value 08/23/2023 16 ALT (U/L) Date Value 08/23/2023 9 Cholesterol, Total (mg/dL) Date Value 08/23/2023 142 DIAGNOSIS: (C83.39) 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) (primary encounter diagnosis) (R63.4) Abnormal weight loss PAST MEDICAL HISTORY Diagnosis Date Anemia Anxiety state Asthma 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 pectoris (HCC) Atrial fibrillation (HCC) Bipolar 2 disorder (HCC) Branchial cleft CAD (coronary artery disease) CHF (congestive heart failure) (HCC) COPD (chronic obstructive pulmonary disease) (HCC) CVA (cerebral vascular accident) (HCC) Essential hypertension GERD (gastroesophageal reflux disease) History of arteriography History of cardioversion Hyperlipidemia Hypothyroidism Irregular heart rate Non Hodgkin's lymphoma (HCC) Osteoarthritis of multiple joints Rheumatoid arthritis (HCC) Unintentional weight loss PAST SURGICAL HISTORY Procedure Laterality Date SHX CARDIAC RADIOFREQUENCY ABLATION Social History Tobacco Use Smoking status: Every Day Types: Cigarettes Passive exposure: Current FAMILY HISTORY Problem Relation Age of Onset Hypertension Mother Hypothyroidism Mother Hypertension Father Heart disease Father other (Rheumatoid arthritis) Brother I spent a total of 30 minutes on the date of the service which included preparing to see the patient, [id number] patient care, completing clinical documentation, obtaining and/or reviewing separately obtained history, performing a medically appropriate examination, counseling and educating the pat ient/family/caregiver, ordering medications, tests, or procedures, communicating with other HCPs (not separately reported), independently interpreting results (not separately reported), communicatingresults to the patient/family/caregiver, and care coordination (not separately reported). Neville Yee MD, CPE Hematology and Oncology Services Provided at: [place], [place] Scribe Attestation: This note was scribed by Oneida Alegre on September 14, 2023 under the direction and supervision of Dr. Neville Yee. I attest that all of the information documented is correct to the best of my knowledge. Provider Attestation: I, Neville Yee MD, attest that all information documented by the above scribe is correct, and was supervised by me and under my direction. CC: SELF Ed Lawton, DO [address] [facility] [facility] [id number] documented in this encounterUc Health06-28-2024 NoteHNO ID: [id number] Author: NEVILLE YEE MD Service: ? Author Type: Physician Type: Progress Notes Filed: 09/14/2023 18:27 Note Text: NAME: Arian Fritz [facility] NO.: [id number] DATE OF SERVICE: September 14, 2023 (Kirit) Some elements in this clinic note that are critical to medical decision making have been carefully reviewed and included from a prior clinic note dated: August 23, 2023 (Kirit) Referring Provider: Self Referred Additional Clinicians involved in Arian L Lam's care: DIAGNOSIS: History of NHL 2004 Abnormal weight loss. ASSESSMENT: 63 year old woman with a history of NHL diagnosed after a liver biopsy. Currently is concerned with abnormal weight loss and possible recurrence of disease. PET/CT was negative. No apparent malignant cause of symptoms were able to be identified at this time. PLAN: RTC PRN HPI: CASE HISTORY: Reverse Chronological Order 09/10/2023 - PET/CT: CHEST: FDG avid subcentimeter right axillary lymph node, probably reactive from radiotracer injection in the right upper extremity. Abnormally dilated pulmonary vessels in the lingula, suggestive of pulmonary arteriovenous malformation. HEAD/NECK, ABDOMEN/PELVIS, MUSCULOSKELETAL: No FDG avid neoplastic process. Followed with Dr. Kurt Ballard for NHL 05/11/2006 - CT CAP: Chest: there are some mild old inflammatory changes, but no adenopathy or mass is seen within the chest. No convincing change. A/P: Small hepatic abnormalities, smaller than before. No new hepatic abnormalities seen. No adenopathy. Bilateral L5 pars defects. Small hiatal hernia. No pelvis abnormality identified 09/20/2004 - CT CAP: Chest: The previously demonstrated pulmonary nodules are no longer visualized. Lungs are now clear. The enlarged mediastinal lymph nodes noted on the prior study have markedly decreased in size (largest is 7 x 8 mm) in the precarinal region. A/P: Marked decrease in size of the liver metastases. Several small hypodense lesions persist as described above. There are multiple linear areas of low attenuation within the liver probably secondary to fibrotic scars. No significant pelvis abnormality. 04/21/2004 - CT CAP: Chest: No mediastinal or axillary lymphadenopathy. A/P: Multiple low areas of attenuation in the liver have decreased in number and size compared to the study of December 30, 2003. No abnormal mass or pelvis lymphadenopathy. 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 These were also noted on 09/15/[address] and I do not see any obvious change. Small hiatal hernia. Questionable small ovarian cysts. This could be further evaluated with ultrasound. Pelvis otherwise unremarkable. 09/15/2003 - CT Chest: Multiple bilateral upper lobe nodules and mediastinal lymphadenopathy with associated evidence of metastatic liver disease and lymphadenopathy noted in the region of the celiac trunk origin. The differential diagnosis includes lymphoproliferative disorder such as lymphoma as well as metastatic disease related to a neoplasm of unknown etiology. The most likely causes would be adenocarcinoma from either the breast or GI tract. Melanoma could result in these findings. Updated Visit, September 14, 2023: Arian returns today with Cora. Her PET scan shows no evidence of NHL recurrence. She has gained 1lb since her last visit. EGD/colonoscopy next week. She may RTC with me PRN. Initial Visit, August 23, 2023: Arian Fritz presents today for a Hematology and Oncology evaluation. She is joined by her daughter, Cora. She is a 63 year old female who was diagnosed with Non Hodgkin's lymphoma with metastases to the liver and lung in 2003. She completed chemotherapy with Dr. Kurt Ballard in 03/2004 and has had no evidence of recurrence. She now reports unintentional weight loss - 70lbs in 3 months. Denies fever, chills, and night sweats. Endorses normal bowel movements. Her appetite has been stable, she is supplementing with Ensure drinks. Increasing memory problems recently. She has an EGD/Colonoscopy scheduled. She is a current smoker - 8-10 cigarettes a day. She had nausea, vomiting, and diarrhea while taking a magnesium supplement in the past. She has a history or COPD, CHF, and AFIB. She has not had AFIB since 2019 when she got the loop implant. She takes Eliquis for a history of CVA in 2001. She mentions a history of delirium when admitted in hospitals. REVIEW OF SYSTEMS Per HPI and otherwise negative by full review of organ systems. (more content not included)...[facility] 09-10-2023 NoteHNO ID: [id number] Author: DAYLIN OROZCO RT(R) Service: ? Author Type: Technologist Type: Progress Notes Filed: 09/10/2023 14:23 Note Text: RADIOLOGY SERVICE PROGRESS NOTE SERVICE DATE: 09/10/2023 SERVICE TIME: 2:23 PM PATIENT IDENTITY VERIFICATION COMPLETED USING TWO (2) STANDARD IDENTIFIERS: Name and Date of confirmed by patient verbally POST EXAM PIV STATUS: Discontinued PROCEDURE TYPE: NM INJECT: PET/CT BODY SCAN. 6.4 mCi F18 FDG. No other medications given.. ADMINISTRATION TIME: 1342 PATIENT DISCHARGED TO: Ambulatory patient, left [place] department area. A Diagnostic radioactive procedure has taken place, with no further precautions necessary other than routine body substance precautions. More information regarding radiation safety can be found using this link: [email or web address] SIGNATURE: RT Ivelisse(R) PATIENT NAME: Arian Fritz DATE: September 10, 2023 TIME: 2:23 PM PAGER/CONTACT #:[facility]06-24-2024 NoteHNO ID: [id number] Author: MICHEL ANDERSON RN Service: ? Author Type: Registered Nurse Type: Progress Notes Filed: 09/10/2023 13:36 Note Text: Radiology Service Progress Note DATE OF SERVICE: September 10, 2023 TIME: 1:35 PM PATIENT IDENTITY VERIFICATION COMPLETED USING TWO (2) STANDARD IDENTIFIERS: Name and Date of confirmed by patient verbally. FALL SCREENING: Has the patient had 2 falls in the last year or 1 fall with injury or currently using an Ambulatory Assistive Device (Walker, Cane, Wheelchair, Crutches, etc.)? No PATIENT GENDER DATA: Female. status: : No status: NO. EXAM: CT -CONTRAST INDUCED NEPHROPATHY RISK FACTORS: Not applicable CREATININE: Creatinine Date Value Ref Range Status 08/23/2023 0.78 0.58 - 0.96 mg/dL Final 12/10/2018 0.86 0.58 - 0.96 mg/dL Final 07/09/2018 0.81 0.58 - 0.96 mg/dL Final Estimated Glomerular Filtration Rate Date Value Ref Range Status 08/23/2023 85 >=60 mL/min/1.73m? Final Comment: Estimated Glomerular Filtration Rate (eGFR) is calculated using the 2020 CKD-EPI creatinine equation. This equation utilizes serum creatinine, sex, and age as parameters. The creatinine assay has traceable calibration to isotope dilution-mass spectrometry. Refer to KDIGO guidelines for clinical interpretation. In patients with unstable renal function, e.g. those with acute kidney injury, the eGFR may not accurately reflect actual GFR. eGFR- Date Value Ref Range Status 12/10/2018 >60 Final P.O.C.T. RESULTS: N/A September 10, 2023 TREATMENT: N/A IV SITE: Ambulatory: A peripheral IV was started in the Right hand with a Angio cath: 22 gauge. IV SITE APPEARANCE: Clean,Dry and Intact SIGNATURE: Michel Anderson RN PATIENT NAME: Arian Fritz DATE: September 10, 2023 TIME: 1:35 [facility]06-20-2024 Telephone encounter Note* Telephone Encounter - Noris Hernandez RN - 09/06/2023 9:13 AM EDT Left message on that Dr. Santana agreeable with plan. Informed her to call back with further questions. Left phone number to CB. Noris Hernandez RN [facility]06-20-[facility] Miscellaneous Notes* Telephone Encounter - Noris Hernandez RN - 09/06/2023 9:13 AM EDT Left message on that Dr. Santana agreeable with plan. Informed her to call back with further questions. Left phone number to CB. Noris Hernandez RN * Telephone Encounter - Neville Yee MD - 09/06/2023 8:31 AM EDT Agree thanks * Telephone Encounter - Maicol Mcqueen RN - 09/05/2023 2:14 PM EDT pt having colonoscopy/EGD 09/17/23. Pt needs to hold Eliquis and Jardiance for 4 days prior. Max: Please advise Maicol documented in this encounter[facility]06-20-2024 Telephone encounter Note * Telephone Encounter - Neville Yee MD - 09/06/2023 8:31 AM EDT Agree thanks [facility]06-19-[facility] Telephone encounter Note* Telephone Encounter - Maicol Mcqueen RN - 09/05/2023 2:14 PM EDT pt having colonoscopy/EGD 09/17/23. Pt needs to hold Eliquis and Jardiance for 4 days prior. Max: Please advise Maicol [facility]06-06-2024 Instructions* Patient Instructions* Oneida Alegre - 08/23/2023 4:30 PM EDT PET/CT when approved RTC after to review scan and today's labs documented in this encounterUc Health06-06-2024 History of Present illness Narrative* Neville Yee MD - 08/23/2023 4:00 PM EDT Images from the original note were not included. NAME: Arian Fritz [facility]IN[facility] NO.: [id number] DATE OF SERVICE: August 23, 2023 (Kirit) Referring Provider: Self Referred Consultation requested by Self Referred for an opinion regarding Niraj Arian Fritz, and my final recommendations will be communicated back to the requesting physician by way of shared medical record or letter via US mail. Additional Clinicians involved in Arian Fox Lam's care: DIAGNOSIS: History of NHL 2004 Abnormal weight loss. ASSESSMENT: 63 year old woman with a history of NHL diagnosed after a liver biopsy. Currently is concerned with abnormal weight loss and possible recurrence of disease. PLAN: PET/CT when approved RTC after to review scan and today's labs HPI: CASE HISTORY: Reverse Chronological Order 05/11/2006 - CT CAP: Chest: there are some mild old inflammatory changes, but no adenopathy or mass is seen within the chest. No convincing change. A/P: Small hepatic abnormalities, smaller than before. No new hepatic abnormalities seen. No adenopathy. Bilateral L5 pars defects. Small hiatal hernia. No pelvis abnormality identified 09/20/2004 - CT CAP: Chest: The previously demonstrated pulmonary nodules are no longer visualized. Lungs are now clear.The enlarged mediastinal lymph nodes noted on the prior study have markedly decreased in size (largest is 7 x 8 mm) in the precarinal region. A/P: Marked decrease in size of the liver metastases. Several small hypodense lesions persist as described above. There are multiple linear areas of low attenuation within the liver probably secondary to fibrotic scars. No significant pelvis abnormality. 04/21/2004 - CT CAP: Chest: No mediastinal or axillary lymphadenopathy. A/P: Multiple low areas of attenuation in the liver have decreased in number and size compared to the study of December 30, 2003. No abnormal mass or pelvis lymphadenopathy. 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 These were also noted on 09/15/[address] and I do not see any obvious change. Small hiatal hernia. Questionable small ovarian cysts. This could be further evaluated with ultrasound. Pelvis otherwise unremarkable. 09/15/2003 - CT Chest: Multiple bilateral upper lobe nodules and mediastinal lymphadenopathy with associated evidence of metastatic liver disease and lymphadenopathy noted in the region of the celiac trunk origin. The differential diagnosis includes lymphoproliferative disorder such as lymphoma as well as metastatic disease related to a neoplasm of unknown etiology. The most likely causes would be adenocarcinoma from either the breast or GI tract. Melanoma could result in these findings. Initial Visit, August 23, 2023: Arian Fritz presents today for a Hematology and Oncology evaluation. She is joined by her daughter, Cora. She is a 63 year old female who was diagnosed with Non Hodgkin's lymphoma with metastases to the liver and lung in 2003. She completed chemotherapy in 03/2004 and has had no evidence of recurrence. She now reports unintentional weight loss - 70lbs in 3 months. Denies fever, chills, and night sweats. Endorses normal bowel movements. Her appetite has been stable, she is supplementing with Ensure drinks. Increasing memory problems recently. She has an EGD/Colonoscopy scheduled. She is a current smoker - 8-10 cigarettes a day. She had nausea, vomiting, and diarrhea while taking a magnesium supplement in the past. She has a history or COPD, CHF, and AFIB. She has not had AFIB since 2019 when she got the loop implant. She takes Eliquis for a history of CVA in 2001. She mentions a history of delirium when admitted in hospitals. REVIEW OF SYSTEMS Per HPI and otherwise negative by full review of organ systems. ECOG PERFORMANCE STATUS: 1 PHYSICAL EXAMINATION: Vitals: BP 138/81 Pulse 77 Temp (Src) 97.6 (Temporal) Resp 16 Wt 115 lb 11.9 oz (52.5kg) SpO2 97% Body surface area is 1.54 meters squared. Exam limited to gross visualization where appropriate. Gen.: This is an age-appropriate patient in no acute distress. Head: Appears atraumatic with no visible lesions. Eyes: Pupils equally round and reactive to light, extraocular muscles are intact. Neck: Supple. Respiratory: Appears to be respiring comfortably. Neurologic: Nonfocal to gross visualization. Alert and oriented 3. Psychiatric: No evidence of inappropriate anxiety or depression. Skin: Visible areas of skin without rash, lesions, wounds or petechiae. ALLERGIES: ALLERGIES Allergen Reactions Prochlorperazine Intolerance compazine MEDICATIONS: apixaban (ELIQUIS) 5 mg tab(s) Take by mouth two times a day. empagliflozin (JARDIANCE) 25 mg tablet Take 25 mg by mouth daily with breakfast. furosemide (LASIX) 20 mg tablet Take 20 mg by mouth once daily. metoprolol succinate ER (TOPROL XL) 25 mg 24 hr tablet Take 12.5 mg by mouth once daily. pantoprazole DR (PROTONIX) 40 mg tablet Take 40 mg by mouth once daily. potassium chloride (KLOR-CON M10 ORAL) Take 10 mEq by mouth once daily. amitriptyline (ELAVIL) 25 mg tablet Take 25 mg by mouth. atorvastatin (LIPITOR) 40 mg tablet Take 40 mg by mouth daily at bedtime. ASPIRIN 81MG TABLET Take one (1) tablet daily . magnesium glycinate 100 mg magnesium capsule Take 1 capsule by mouth once daily. ALPRAZolam 1 mg dissolvable tablet Take 1 mg by mouth once daily. albuterol HFA (PROVENTIL HFA, VENTOLIN HFA) 90 mcg/actuation inhaler Inhale 2 Puffs as instructed. LABORATORY VALUES: WBC (k/uL) Date Value 08/23/2023 6.65 RBC (m/uL) Date Value 08/23/2023 4.57 Hemoglobin (g/dL) Date Value 08/23/2023 12.2 Hematocrit (%) Date Value 08/23/2023 38.8 MCV (fL) Date Value 08/23/2023 84.9 MCH (pg) Date Value 08/23/2023 26.7 MCHC (g/dL) Date Value 08/23/2023 31.4 RDW-CV (%) Date Value 08/23/2023 14.6 Platelet Count (k/uL) Date Value 08/23/2023 355 MPV (fL) Date Value 08/23/2023 10.2 Glucose (mg/dL) Date Value 07/09/2018 96 BUN (mg/dL) Date Value 07/09/2018 11 Creatinine (mg/dL) Date Value 12/10/2018 0.86 Sodium (mmol/L) Date Value 07/09/2018 142 Potassium (mmol/L) Date Value 07/09/2018 3.8 Chloride (mmol/L) Date Value 07/09/2018 102 CO2 (mmol/L) Date Value 07/09/2018 24 Protein, Total (g/dL) Date Value 07/09/2018 8.0 Albumin (g/dL) Date Value 07/09/2018 4.3 Calcium (mg/dL) Date Value 07/09/2018 10.1 Alkaline Phosphatase (U/L) Date Value 07/09/2018 78 Bilirubin, Total (mg/dL) Date Value 07/09/2018 0.4 AST (U/L) Date Value 07/09/2018 13 ALT (U/L) Date Value 12/10/2018 13 DIAGNOSIS: (C83.39) 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) (primary encounter diagnosis) Plan: LACTATE DEHYDROGENASE, COMPLETE BLOOD COUNT AND DIFFERENTIAL, COMPREHENSIVE METABOLIC PANEL, IRON AND TIBC, FERRITIN, VITAMIN B12, FOLATE, SERUM, TOTAL CHOLESTEROL, FACTOR VIII:C ASSAY, FACTOR V:C ASSAY, FACTOR II:C ASSAY (R63.4) Abnormal weight loss Plan: LACTATE DEHYDROGENASE, COMPLETE BLOOD COUNT AND DIFFERENTIAL, COMPREHENSIVE METABOLIC PANEL, IRON AND TIBC, FERRITIN, VITAMIN B12, FOLATE, SERUM, TOTAL CHOLESTEROL, FACTOR VIII:C ASSAY, FACTOR V:C ASSAY, FACTOR II:C ASSAY, PREALBUMIN, PHOSPHORUS INORGANIC, MAGNESIUM (C83.39) Diffuse large B-cell lymphoma of solid organ excluding spleen (HCC) Plan: NM PET/CT SKULL-THIGH INITIAL PAST MEDICAL HISTORY Diagnosis Date Anemia Anxiety state Asthma 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 pectoris (HCC) Atrial fibrillation (HCC) Bipolar 2 disorder (HCC) Branchial cleft CAD (coronary artery disease) CHF (congestive heart failure) (HCC) COPD (chronic obstructive pulmonary disease) (HCC) CVA (cerebral vascular accident) (HCC) Essential hypertension GERD (gastroesophageal reflux disease) History of arteriography History of cardioversion Hyperlipidemia Hypothyroidism Irregular heart rate Non Hodgkin's lymphoma (HCC) Osteoarthritis of multiple joints Rheumatoid arthritis (HCC) Unintentional weight loss PAST SURGICAL HISTORY Procedure Laterality Date SHX CARDIAC RADIOFREQUENCY ABLATION Social History Tobacco Use Smoking status: Every Day Types: Cigarettes Passive exposure: Current FAMILY HISTORY Problem Relation Age of Onset Hypertension Mother Hypothyroidism Mother Hypertension Father Heart disease Father other (Rheumatoid arthritis) Brother I spent a total of 60 minutes on the date of the service which included preparing to see the patient, [id number] patient care, completing clinical documentation, obtaining and/or reviewing separately obtained history, performing a medically appropriate examination, counseling and educating the pat ient/family/caregiver, ordering medications, tests, or procedures, communicating with other HCPs (not separately reported), independently interpreting results (not separately reported), communicatingresults to the patient/family/caregiver, and care coordination (not separately reported). Neville Yee MD, CPE Hematology and Oncology Services Provided at: [place], [place] Scribe Attestation: This note was scribed by Oneida Alegre on August 23, 2023 under the direction and supervision of Dr. Neville Yee. I attest that all of the information documented is correct to the best of my knowledge. Provider Attestation: I, Neville Yee MD, attest that all information documented by the above scribe is correct, and was supervised by me and under my direction. CC: SELF Ed Lawton, DO [address] [facility] [address] documented in this encounterUc Health06-[facility]-2024 NoteHNO ID: [id number] Author: NEVILLE YEE MD Service: ? Author Type: Physician Type: Progress Notes Filed: 08/25/2023 15:06 Note Text: NAME: Arian Fritz [facility] NO.: [id number] DATE OF SERVICE: August 23, 2023 ([place]irit) Referring Provider: Self Referred Consultation requested by Self Referred for an opinion regarding Ms. Arian Fritz, and my final recommendations will be communicated back to the requesting physician by way of shared medical record or letter via US mail. Additional Clinicians involved in Arian Fritz's care: DIAGNOSIS: History of NHL 2004 Abnormal weight loss. ASSESSMENT: 63 year old woman with a history of NHL diagnosed after a liver biopsy. Currently is concerned with abnormal weight loss and possible recurrence of disease. PLAN: PET/CT when approved RTC after to review scan and today's labs HPI: CASE HISTORY: Reverse Chronological Order 05/11/2006 - CT CAP: Chest: there are some mild old inflammatory changes, but no adenopathy or mass is seen within the chest. No convincing change. A/P: Small hepatic abnormalities, smaller than before. No new hepatic abnormalities seen. No adenopathy. Bilateral L5 pars defects. Small hiatal hernia. No pelvis abnormality identified 09/20/2004 - CT CAP: Chest: The previously demonstrated pulmonary nodules are no longer visualized. Lungs are now clear. The enlarged mediastinal lymph nodes noted on the prior study have markedly decreased in size (largest is 7 x 8 mm) in the precarinal region. A/P: Marked decrease in size of the liver metastases. Several small hypodense lesions persist as described above. There are multiple linear areas of low attenuation within the liver probably secondary to fibrotic scars. No significant pelvis abnormality. 04/21/2004 - CT CAP: Chest: No mediastinal or axillary lymphadenopathy. A/P: Multiple low areas of attenuation in the liver have decreased in number and size compared to the study of December 30, 2003. No abnormal mass or pelvis lymphadenopathy. 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 These were also noted on 09/15/[address] and I do not see any obvious change. Small hiatal hernia. Questionable small ovarian cysts. This could be further evaluated with ultrasound. Pelvis otherwise unremarkable. 09/15/2003 - CT Chest: Multiple bilateral upper lobe nodules and mediastinal lymphadenopathy with associated evidence of metastatic liver disease and lymphadenopathy noted in the region of the celiac trunk origin. The differential diagnosis includes lymphoproliferative disorder such as lymphoma as well as metastatic disease related to a neoplasm of unknown etiology. The most likely causes would be adenocarcinoma from either the breast or GI tract. Melanoma could result in these findings. Initial Visit, August 23, 2023: Arian Fritz presents today for a Hematology and Oncology evaluation. She is joined by her daughter, Cora. She is a 63 year old female who was diagnosed with Non Hodgkin's lymphoma with metastases to the liver and lung in 2003. She completed chemotherapy in 03/2004 and has had no evidence of recurrence. She now reports unintentional weight loss - 70lbs in 3 months. Denies fever, chills, and night sweats. Endorses normal bowel movements. Her appetite has been stable, she is supplementing with Ensure drinks. Increasing memory problems recently. She has an EGD/Colonoscopy scheduled. She is a current smoker - 8-10 cigarettes a day. She had nausea, vomiting, and diarrhea while taking a magnesium supplement in the past. She has a history or COPD, CHF, and AFIB. She has not had AFIB since 2019 when she got the loop implant. She takes Eliquis for a history of CVA in 2001. She mentions a history of delirium when admitted in hospitals. REVIEW OF SYSTEMS Per HPI and otherwise negative by full review of organ systems. ECOG PERFORMANCE STATUS: 1 PHYSICAL EXAMINATION: Vitals: BP 138/81 Pulse 77 Temp (Src) 97.6 (Temporal) Resp 16 Wt 115 lb 11.9 oz (52.5kg) SpO2 97% Body surface area is 1.54 meters squared. Exam limited to gross visualization where appropriate. Gen.: This is an age-appropriate patient in no acute distress. Head: Appears atraumatic with no visible lesions. Eyes: Pupils equally round and reactive to light, extraocular muscles are intact. Neck: Supple. Respiratory: Appears to be respiring comfortably. Neurologic: Nonfo (more content not included)...[facility] 05-21-2023 History of Present illness Narrative* Geno River MD - 05/21/2023 1:15 PM EST Arian Fritz Date of visit: 05/21/2023 Date of : 1960 Age: 63 y.o. Patient Active Problem List Diagnosis Hypothyroidism Hypertension Osteoporosis Asthma GERD (gastroesophageal reflux disease) Hyperlipidemia Dysphasia Anxiety COPD (chronic obstructive pulmonary disease) ([facility]) Paroxysmal atrial fibrillation ([facility]) Anemia Leg edema Elevated brain natriuretic peptide (BNP) level Rheumatoid arthritis of hand ([facility]) Ischemic cardiomyopathy Coronary artery disease involving nenana coronary artery of nenana heart Allergies Allergen Reactions Prochlorperazine Other (See Comments) Neurological sx compazine Current Outpatient Medications Medication Sig Dispense Refill albuterol (PROVENTIL HFA;VENTOLIN HFA) 90 mcg/actuation inhaler Inhale 2 puffs 4 (four) times a day. ALPRAZolam (XANAX) 1 mg tablet Take 1 tablet (1 mg total) by mouth as needed. amitriptyline (ELAVIL) 25 mg tablet Take 1 tablet (25 mg total) by mouth nightly. apixaban (ELIQUIS) 5 mg tablet Take 1 tablet (5 mg total) by mouth in the morning and 1 tablet (5 mg total) before bedtime. 60 tablet 11 aspirin 81 mg chewable tablet Chew 1 tablet (81 mg total) and swallow in the morning. atorvastatin (LIPITOR) 80 mg tablet Take 1 tablet (80 mg total) by mouth in the morning. 90 tablet 3 furosemide (LASIX) 20 mg tablet Take 1 tablet (20 mg total) by mouth daily. 90 tablet 2 JARDIANCE 10 mg tablet tablet TAKE 1 TABLET BY MOUTH EVERY DAY IN THE MORNING 90 tablet 2 levothyroxine (SYNTHROID, LEVOTHROID) 88 MCG tablet Take 1 tablet (88 mcg total) by mouth in the morning. metoprolol succinate XL (TOPROL XL) 25 mg 24 hr tablet TAKE 1 TABLET BY MOUTH EVERY MORNING (Patient taking differently: 0.5 tablets (12.5 mg total) in the morning.) 90 tablet 3 pantoprazole (PROTONIX) 40 mg EC tablet Take 1 tablet (40 mg total) by mouth in the morning. potassium chloride (KLOR-CON) 20 mEq packet Take 1 packet (20 mEq total) by mouth in the morning and 1 packet (20 mEq total) before bedtime. predniSONE (DELTASONE) 5 mg tablet TAKE 1-2 TABLETS BY MOUTH EVERY DAY NEEDED sertraline (ZOLOFT) 100 mg tablet Take 1 tablet (100 mg total) by mouth nightly. No current facility-administered medications for this visit. Chief Complaint Patient presents with Follow-up 6 month Hypertension Cardiomyopathy Atrial Fibrillation Shortness of Breath Dizziness History of Present Illness Pleasant 63-year-old lady with past medical history of coronary artery disease, ischemic cardiomyopathy, heart failure with recovered ejection fraction, paroxysmal atrial fibrillation. Patient is here for routine office visit. She denies chest pain. She does endorse mild shortness of breath that has not worse than usual. Shealso notes excessive weight loss over the last couple years more than 70 lb. Patient also mentions that she has lightheadedness. Past Medical History: Diagnosis Date Atrial fibrillation ([facility]) COPD (chronic obstructive pulmonary disease) ([facility]) Coronary artery disease Hypertension Stroke ([facility]) No data recorded No data recorded No data recorded Past Surgical History: Procedure Laterality Date ABLATION OF DYSRHYTHMIC FOCUS 04/2019 AF/AFL @ BRONCHOSCOPY RIGID W/ PLACEMENT TRACHEAL / BRONCHIAL STENT 1976 bronchial cleft repair Family History Problem Relation Age of Onset Hypothyroidism Mother Hypertension Mother Hypertension Father Heart disease Father Rheum arthritis Sister Rheum arthritis Brother Social History Socioeconomic History Marital status: Spouse name: Not on file Number of children: Not on file Years of education: Not on file Highest education level: Not on file Occupational History Not on file Tobacco Use Smoking status: Every Day Packs/day: .5 Types: Cigarettes Smokeless tobacco: Never Vaping Use Vaping Use: Former Substances: Nicotine Devices: Disposable Substance and Sexual Activity Alcohol use: Never Drug use: Never Sexual activity: Not on file Other Topics Concern Caffeine Use Yes Social History Narrative Not on file Social Determinants of Health Financial Resource Strain: Not on file Food Insecurity: No Food Insecurity (05/21/2023) Hunger Screening Food Insecurity - Worry: Never True Food Insecurity - Inability: Never True Transportation Needs: Not on file Physical Activity: Not on file Stress: Not on file Social Connections: Not on file Interpersonal Safety: Not on file Housing Instability: Not on file Review of Systems Review of Systems Constitutional: Positive for malaise/fatigue. HENT: Positive for nosebleeds. Eyes: Negative. Respiratory: Positive for cough and shortness of breath. Hematologic/Lymphatic: Bruises/bleeds easily. Skin: Negative. Musculoskeletal: Positive for muscle weakness. Gastrointestinal: Negative. Neurological: Positive for dizziness, light-headedness, loss of balance and numbness. Psychiatric/Behavioral: Positive for depression. The patient is nervous/anxious. Allergic/Immunologic: Negative. CARDIOVASCULAR: Please review HPI. Physical Examination General appearance: Alert, oriented and cooperative. In no acute distress. Skin: Warm and dry to touch. Head: Normocephalic, without obvious abnormality, atraumatic. Ears, Nose, Mouth, Throat: Throat clear without erythema or exudate. Dentition intact. Eyes: Conjunctivae unremarkable, EOM intact. Neck: No JVD, No carotid bruit. Neck supple, trachea midline. Respiratory: Clear to auscultation bilaterally, no use of accessory muscles. Cardiovascular: RRR with normal S1 and S2 with no murmurs. Gastrointestinal: Soft, non-tender. Bowel sounds normal. Musculoskeletal: No peripheral edema. Neurologic: Oriented to time, person and place, affect appropriate. No focal/major motor defects noted. Psychiatric: Appropriate mood, memory and judgement. VITAL SIGNS: BP 90/70 (BP Site: Right Arm, BP Postition: Sitting) Pulse 71 Ht 162.6 cm (5' 4 ) Wt 53.5 kg (118 lb) SpO2 96% BMI 20.25 kg/m Orders Placed or Reconciled This Encounter Medications potassium chloride (KLOR-CON) 20 mEq packet Sig: Take 1 packet (20 mEq total) by mouth in the morning and 1 packet (20 mEq total) before bedtime. albuterol (PROVENTIL HFA;VENTOLIN HFA) 90 mcg/actuation inhaler Sig: Inhale 2 puffs 4 (four) times a day. amitriptyline (ELAVIL) 25 mg tablet Sig: Take 1 tablet (25 mg total) by mouth nightly. sertraline (ZOLOFT) 100 mg tablet Sig: Take 1 tablet (100 mg total) by mouth nightly. Medications Discontinued During This Encounter Medication Reason folic acid (FOLVITE) 1 mg tablet Therapy completed methotrexate 2.5 mg chemo tablet Therapy completed nitroglycerin (NITROSTAT) 0.4 MG SL tablet Therapy completed ENTRESTO 24-26 mg tablet Stop Taking at Discharge IMPRESSIONS/PLAN 1. Paroxysmal atrial fibrillation (CMS-HCC) - POCT EKG 2. Coronary artery disease involving nenana coronary artery of nenana heart, unspecified whether angina present - POCT EKG 3. Primary hypertension 4. Ischemic cardiomyopathy 5. Hyperlipidemia, unspecified hyperlipidemia type From a cardiac standpoint, she is stable. Blood pressure is in the 90s. She is lightheaded. Will discontinue Entresto. Continue Toprol XL 12.5 mg p.o. daily. Continue Lasix 20 mg p.o. daily. Toprol at some point. Last LVEF 50-55% echocardiogram 2021. I asked her to touch base with her PCP regarding her unintentional weight loss. She might also be due for colonoscopy. She has remote history of Hodgkin's lymphoma. I asked her to drink ensure with every meal well. All questions and concerns addressed to the patient's satisfaction. Follow-up in 12 months or sooner if needed. This note was created with the assistance of a speech recognition program. While intending to generate a timely document that accurately reflects the content of the visit, no guarantee can be provided that every grammatical or spelling mistake has been or will be identified or corrected. Thank you for your understanding! TODAYS ORDERS Orders Placed This Encounter Procedures POCT EKG FOLLOW UP Return in about 1 year (around 05/20/2024). PCP: Ed Lawton DO Referring Physician: Ed Lawton DO [address] [place] [address] documented in this encounterMer[facility] Instructions* Patient Instructions* Noris Benny, [facility] - 05/21/2023 1:15 PM EST Are You Ready To Kick The Habit? Free Tobacco Cessation Resources [facility] Services [facility] Centers provide all employees with free tobacco cessation services that include: Counseling to understand nicotine addiction Education about medications that can help you successfully quit Assistance with developing a plan to quit Call to set up an individual appointment or find out when group classes will be held: [facility]: [phone] [facility]: [phone] [facility]: [phone] [facility]: [phone] Quit Smoking Action Plan and Resources [facility] offers an eight-week, online smoking cessation plan to all [facility] employees, regardless of whether [place] is your medical insurance provider. Go to [email or web address] and click the Health Risk Assessment and Resources link to get started. In the Gkflm2Cdtbyl menu, click Action Plans instead of Health Risk Assessment to access the Quit Smoking Action Plan. Additional smoking cessation resources are also available to all [facility] employees on the Wslfh3Zzklzg web page at [email or web address].[email or web address]. [place] Tobacco Cessation Program If [place] is your medical insurance provider, there are more free resources available to you, including: No copays or deductibles on local tobacco cessation counseling services to help you quit Prescription assistance for tobacco cessation medications to help you quit For details about the tobacco cessation program available to [place] members, go to www.[employer] (Search: Tobacco Cessation Program). [place] Tobacco Quit Line 1-978-WRCA-NOW ( ) is a toll-free, telephonic service that helps [place] residents quit smoking and using tobacco. It is staffed by experts who tailor a quit plan for you and provide you with advice. [place] Tobacco Quit Line 7-962-XGGM-NOW ( ) is a toll-free, telephonic service that helps [place] residents quit smoking and using tobacco. It is staffed by experts who tailor a quit plan for you and provide you with advice. Two weeks of nicotine replacement therapy may be provided at no charge, if needed. Additional Resources These national organizations also offer free information and resources to help you quit tobacco: [place] [employer]--www.cancer.org/healthy/stayawayfromtobacco [place] [employer]--www.heart.org (Search: Quit Smoking) Centers for Disease Control and Prevention--www.cdc.gov/tobacco [place] [employer]--www.lungusa.org documented in this encounterNortheastern [facility] HospitalCustomer [facility]03-01-2024 Miscellaneous Notes* Telephone Encounter - Noris Zapata CMA - 05/18/2023 10:06 AM EST Called patient to remind them to bring their most current copy of their medication list with them to their appt. Patient verbalizes understanding. documented in this encounterNortheastern [facility] HospitalABPathfinder [id number] Telephone encounter Note* Telephone Encounter - Noris Zapata CMA - 05/18/2023 10:06 AM EST Called patient to remind them to bring their most current copy of their medication list with them to their appt. Patient verbalizes understanding. [facility]11-17-2023 Evaluation note* Encounter Date Diagnosis Assessment Notes Treatment Notes Treatment Clinical Notes Jan, BMI 38.0-38.9,adult (ICD-10 - Z68.38) Jan, Chronic obstructive pulmonary disease, unspecified COPD type (ICD-10 - J44.9) Jan, Rheumatoid arthritis of hand, unspecified laterality, unspecified rheumatoid factor presence (ICD-10 - M06.9) [facility] Other 11-01-2023 Evaluation note* Encounter Date Diagnosis [...] are low and contributing to her fatigue. [facility] Other 05-31-2023 Evaluation note* Encounter Date Diagnosis [...] systolic congestive heart failure (ICD-10 - I50.23) [facility] Other 05-10-2023 Evaluation note* Encounter Date Diagnosis [...] R11.0) July, Stomach pain (ICD-10 - R10.9) [facility] Other 03-21-2023 Evaluation note* Encounter Date Diagnosis Assessment Notes Treatment Notes Treatment Clinical Notes May, Acute on chronic systolic congestive heart failure (ICD-10 - I50.23) May, Essential hypertension (ICD-10 - I10) May, Acquired hypothyroidism (ICD-10 - E03.9) May, Medication monitorin g encounter (ICD-10 - Z51.81) May, Encounter for screening for cardiovascular disorders (ICD-10 - Z13.6) [facility] Other 12-28-2022 Evaluation note* Encounter Date Diagnosis [...] Patient acknowledges understanding and agrees to treatment. [facility] Other 11-09-2022 Evaluation note* Encounter Date Diagnosis [...] and follow with cardiology for this issue. [facility] Other 05-09-2022 Evaluation note* Encounter Date Diagnosis Assessment Notes Treatment Notes Treatment Clinical Notes July, Medicare annual wellness visit, initial (ICD-10 - Z00.00) Mrs. Fritz seen today doing fairly well. She states disatisfaction with current cardiologists in regards to recent admission to hospital. Discussed with her the need to stay on her Lasix 40mg. 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 Her [...] exam. July, Acquired hypothyroidism (ICD-10 - E03.9) [facility] Other 03-21-2022 Evaluation note* Encounter Date Diagnosis Assessment Notes Treatment Notes Treatment Clinical Notes May, Acquired hypothyroidism (ICD-10 - E03.9) [facility] Other Evaluation noteNort [facility] Other Evaluation noteNo InformationNort [facility] Other Evaluation noteNo assessment information available [facility] Work Phone: Evaluation note* Diagnosis Onset Date Resolution Status Cyclic vomiting syndrome acu te Hypothyroidism acute Weakness acute Anxiety chronic Medication monitoring encounter noneactive Dyspnea noneactive Weight loss noneactive [facility] Work Phone: Evaluation note* Diagnosis Paroxysmal atrial fibrillation (CMS-HCC)- Primary Atrial fibrillation Coronary artery disease involving nenana coronary artery of nenana heart, unspecified whether angina present Primary hypertension Unspecified essential hypertension Ischemic cardiomyopathy Other specified forms of chronic ischemic heart disease Hyperlipidemia, unspecified hyperlipidemia type documented in this encounter [facility]* Diagnosis Onset Date Resolution Status [id number] acute Anxiety chronic ASHD (arteriosclerotic heart disease) chronic Bipolar II disorder chronic Chronic atrial fibrillation chronic Chronic fatigue chronic Chronic obstructive pulmonary disease (COPD) chronic Chronic systolic congestive heart failure chronic Cigarette nicotine dependence without complication chronic Essential hypertension chron ic GERD (gastroesophageal reflux disease) chronic Hyperlipidemia chronic Hypokalemia chronic Hypothyroidism chronic Osteoporosis chronic Pharyngeal dysphagia chronic Rheumatoid arthritis chronic [id number] chronic Transaminitis chronic Well adult noneactive [facility] Work Phone: Evaluation note* Diagnosis 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)- Primary Abnormal weight loss Loss of weight Diffuse large B-cell lymphoma of solid organ excluding spleen (HCC) Bipolar II disorder (HCC) Other bipolar disorders [facility] Diagnosis 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)- Primary Abnormal weight loss Loss of weight [facility]* Author Robson Robins [facility] Authored October 17, 2023 3:41 pm Patient is positive for occa sional dyspepsia, intermittent dysphagia, patient has been maintaining her weight at this point. [facility] Work Phone: History general Narrative - ReportedNort [facility] Other History general Narrative - Reported* Type Description Date Medical History hypothyroidism Medical History HTN Medical History osteoporosis Medical History asthma Medical History GERD Medical History hyperlipdemia Medical History dysphagia Medical History rheumatoid arthritis Medical History anxiety Medical History copd Medical History A-FIB Surgical History BRONCHIAL CLEFT REPAIR 1976 Hospitalization History Child x2 Hospitalization History Sepsis/Rhabdo 08/2018 [facility] Other History general Narrative - Reported* Type Description Date Medical History hypothyroidism Medical History HTN Medical History osteoporosis Medical History asthma Medical History GERD Medical History hyperlipdemia Medical History dysphagia Medical History rheumatoid arthritis Medical History anxiety Medical History copd Medical History A-FIB Surgical History BRONCHIAL CLEFT REPAIR 1976 Hospitalization History Child x2 Hospitalization History Sepsis/Rhabdo 08/2018 Hospitalization History Heart failure 05/2021 [facility] Other Hospital Discharge instructionsAmbulatory Orders* Disability Placard Time Frame: 11/14/23, Location: Determined By Patient [facility] Work Phone: InstructionsNot on filedocumented in this encounter [facility]InstructionsNot on filedocumented in this encounter [facility] SystemReason for referral (narrative)* Diagnostic Procedure Only (Routine) - Authorized Specialty Diagnoses / Procedures Referred By Ramiro t Referred To Contact MOLECULAR & FUNCTIONAL IMAGING Diagnoses Diffuse large B-cell lymphoma of solid organ excluding spleen (HCC) Procedures NM PET/CT SKULL-THIGH INITIAL PET IMAGING CT ATTENUATION SKULL BASE MID-THIGH Neville Yee MD [address] [place] [address] [place] [address] Molecular & Functional Imaging [address] [place] [address] Referral ID Status Reason Start Date Expiration Date Visits Requested Visits Authorized [id number] Authorized Auto-Generat ed Referral 08/23/2023 09/21/2024 1 1 [facility] Summary Purpose Family History Unknown Family Member Name Dates Details No [...] history: Mother, Father, Sister, Brother(V49.89, Z78.9) Status:Active Relationship Condition Age at Onset Recorded Date/T dave brother Rheumatoid arthritis Unknown daughter Rheumatoid arthritis Unknown father Unknown Hypertension Unknown Heart disease Unknown Not Specified Hypothyroidism Unknown Relationship Condition Age at Onset Recorded Date/T dave brother Rheumatoid arthritis Unknown daughter Rheumatoid arthritis Unknown father Unknown Hypertension Unknown Heart disease Unknown mother Hypothyroidism Unknown Advance Directives Advance Directive Response Recorded Date/ Time Advance Directives Yes September 10 1:10pm Advance Directive Response Recorded Date/ Time Advance Directives Yes September 10 2:10pm Procedure Findings Note Pre-procedure Verification a nd Time Out: Pre-Procedure Verification and Time Out: Procedure [facility] - Pre-procedure Verificationcompleted TIME OUT - Final Verificationcompleted DEBRIEFcompleted General Information: Post-Procedure Diagnosis: Atrial Fibrillation, Atypical Atrial Flutter Procedure Name: Atrial Fibrillation and Atypical Atrial Flutter Ablation Findings: See Below Procedure performed by: Dr. Jonathan Wall Contract Associate Manager(s): Dr. eBn Dubois Estimated Blood Loss (mL): 10 Specimen: [...] content not included)... Chief Complaint * ARIAN FRITZ is being seen for a 6 month [...] atrial fibrillation status post radiofrequency ablation at [facility] with recurrent atrial fibrillation, presently on [...] counseled again on tobacco cessation * ARIAN FRITZ is being seen for hypertension and BP [...] Dr. Marty Lynn MD for review.* ARIAN FRITZ is being seen for follow-up of a hospitalization for. # week/ [facility] d/c * Patient is in the office [...] atrial fibrillation status post radiofrequency ablation at [facility], patient relapsed while she was on [...] and possible introduction of Aldactone. * ARIAN FRITZ is being seen for follow-up of a hospitalization for. # week/ [facility] d/c * Patient is in the office [...] atrial fibrillation status post radiofrequency ablation at [facility], patient relapsed while she was on [...] and possible introduction of Aldactone. * ARIAN FRITZ is being seen for follow-up of a hospitalization for. # week/ [facility] d/c * Patient is in the office [...] atrial fibrillation status post radiofrequency ablation at [facility], patient relapsed while she was on [...] unspecified rheumatoid factor presence (M06.9) Referral Organization [facility] [place] Referring Provider First Name Ed Referring Provider Last Name Jered Referring Provider Specialty Family Prac ashley Referred Organization [facility] Referred Address [address],[place], [place],[address] Referred Provider Specialty Rheumatology Referral Priority Routine Reason [facility] [place] Diagnosis 1 Acute on chronic sys tolic congestive heart failure (I50.23) Diagnosis 2 Paroxysmal atrial fi brillation (I48.0) Diagnosis 3 Coronary artery dise ase involving nenana coronary artery of nenana heart without angina pectoris (I25.10) Ref[facility] [place] Referring Provider First Name Ed Referring Provider Last Name Jered Referring Provider Specialty Family Prac ashley Referred Organization [facility] Referred Address [address],[address] Referred Provider Specialty Cardiology Referral Priority Routine General Notes Sophie Christie 12/2021 08:21:44 AM > referral received waiting for notes to be locked Clinical Notes P- [phone] F - [phone] Chief Complaint and Reason for Visit Chief Complaint R30.0 Chief Complaint Z12.31 Chief Complaint Not feeling well Reason for Visit Cyclic vomiting synd wicho Hypothyroidism Weakness Anxiety Medication monitoring encounter Dyspnea Weight loss Chief Complaint [facility] Reason for Visit [id number] Anxiety ASHD (arteriosclerotic heart disease) Bipolar II disorder Chronic atrial fibrillation Chronic fatigue Chronic obstructive pulmonary disease (COPD) Chronic systolic congestive heart failure Cigarette nicotine dependence without complication Essential hypertension GERD (gastroesophageal reflux disease) Hyperlipidemia Hypokalemia Hypothyroidism Osteoporosis Pharyngeal dysphagia Rheumatoid arthritis [id number] Transaminitis Well adult [facility] R13.13 e03.9 e78.2 z51.81 e78.2 z51.81 Reason for Visit [id number] Anxiety ASHD (arteriosclerotic heart disease) Bipolar II disorder Chronic atrial fibrillation Chronic fatigue Chronic obstructive pulmonary disease (COPD) Chronic systolic congestive heart failure Cigarette nicotine dependence without complication Essential hypertension GERD (gastroesophageal reflux disease) Hyperlipidemia Hypokalemia Hypothyroidism Osteoporosis Pharyngeal dysphagia Rheumatoid arthritis [id number] Transaminitis Well adult Chief Complaint [facility] R13.13 e03.9 e78.2 z51.81 e78.2 z51.81 BH M81.0 Reason for Visit [id number] Anxiety ASHD (arteriosclerotic heart disease) Bipolar II disorder Chronic atrial fibrillation Chronic fatigue Chronic obstructive pulmonary disease (COPD) Chronic systolic congestive heart failure Cigarette nicotine dependence without complication Essential hypertension GERD (gastroesophageal reflux disease) Hyperlipidemia Hypokalemia Hypothyroidism Osteoporosis Pharyngeal dysphagia Rheumatoid arthritis [id number] Transaminitis Well adult Chief Complaint [facility] R13.13 e03.9 e78.2 z51.81 e78.2 z51.81 M81.0 BH Hx of colon polyps, Dysphagia Hx of colon polyps, Dysphagia Amb Documentation Amb Documentation discuss Blackman's Reason for Visit [id number] Anxiety ASHD (arteriosclerotic heart disease) Bipolar II disorder Chronic atrial fibrillation Chronic fatigue Chronic obstructive pulmonary disease (COPD) Chronic systolic congestive heart failure Cigarette nicotine dependence without complication Essential hypertension GERD (gastroesophageal reflux disease) Hyperlipidemia Hypokalemia Hypothyroidism Osteoporosis Pharyngeal dysphagia Rheumatoid arthritis [id number] Transaminitis Well adult Barretts esophagus GERD (gastroesophageal reflux disease) Chief Complaint M81.0 Hx of colon polyps, Dysphagia Hx of colon polyps, Dysphagia Amb Documentation Amb Documentation discuss Blackman's BH 3 month follow up Reason for Visit Barretts esophagus GERD (gastroesophageal reflux disease) Barretts esophagus Essential hypertension GERD (gastroesophageal reflux disease) Hypothyroidism Rheumatoid arthritis Memory impairment Additional Source Comments INFORMATION SOURCE (unrecogn ized section and content) DATE CREATED AUTHOR 05/29/2019 [facility] DATE CREATED AUTHOR AUTHOR'S ORGANIZ ATION 06/09/2021 [employer] [place] DATE CREATED AUTHOR AUTHOR'S ORGANIZ ATION 08/25/2022 [facility] DATE CREATED AUTHOR AUTHOR'S ORGANIZ ATION 09/16/2023 [facility] DATE CREATED AUTHOR AUTHOR'S ORGANIZ ATION 10/24/2023 [facility] DATE CREATED AUTHOR AUTHOR'S ORGANIZ ATION 10/30/2023 [facility] REASON FOR VISIT (unrecogniz ed section and content) Reason Onset Date Comments Med Refill 04/27/2023 Reason Comments Follow-up 6 month Hypertension Cardiomyopathy Atrial Fibrillation Shortness of Breath Dizziness Specialty Diagnoses / Procedures Referred By Contac t Referred To Contact Hematology/Oncology / HEMATOLOGY/ONCOLOGY Diagnoses Non Hodgkin's lymphoma (HCC) New Patient Formerly saw Dr. 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 Lawton---please get records Procedures OFFICE/OUTPATIENT NEW SF MDM 15 MINUTES OFFICE/OUTPATIENT NEW LOW MDM 30 MINUTES OFFICE/OUTPATIENT NEW MODERATE MDM 45 MINUTES OFFICE/OUTPATIENT NEW HIGH MDM 60 MINUTES NEW PATIENT MED ONC Self Neville Yee MD [address] [place] [address] Referral ID Status Reason Start Date Expiration Date Visits Re quested Visits Authorized [id number] Closed 07/25/2023 03/18/2024 1 1 Reason Comments Lymphoma Specialty Diagnoses / Procedures Referred By Contac t Referred To Contact Hematology/Oncology / HEMATOLOGY/ONCOLOGY Diagnoses follow up after PET scan to review results Procedures OFFICE/OUTPATIENT NEW HIGH MDM 60 MINUTES EST PATIENT Neville Yee MD [address] [place] [address] [place] [address] Neville Yee MD [address] [place] [address] [place] [address] Referral ID Status Reason Start Date Expiration Date Visits Re quested Visits Authorized [id number] Closed 09/14/2023 12/13/2023 1 1 Care Teams (unrecognized sec tion and content) Team Status: Active Member Role Status Dates Ed Lawton DO Primary Care Provider Active Team Status: Active Member Role Status Dates Ed Lawton DO Primary Care Provider Active Start: August 23, 2023 Neville Yee MD Attending Provider Active Start: August 23, 2023 Team Status: Inactive Member Role Status Dates Ed Lawton DO Primary Care Provi radhames, Attending Provider Active Start: September 05, 2023 End: September 05, 2023 Team Status: Inactive Member Role Status Dates Ed Lawton DO Primary Care Provider Active Start: September 17, 2023 End: September 17, 2023 Josue Muro MD Attending Provider Active Start: September 17, 2023 End: September 17, 2023 Team Status: Active Member Role Status Dates Ed Lawton , DO Primary Care Provider Active Start: September 17, 2023 Josue Muro MD Attending Provider, Other Provider Act vincenzo Start: September 17, 2023 Team Status: Active Member Role Status Dates Ed Lawton , DO Primary Care Provider Active Start: September 18, 2023 Laura Fleming Attending Provider Active Start: 2023 Team Status: Active Member Role Status Dates Ed Lawton , DO Primary Care Provider Active Start: September 25, 2023 Jessica Manzano Attending Provider Active Start: September 25, 2023 Team Status: Inactive Member Role Status Dates Ed Lawton , DO Primary Care Provider Active Start: October 17, 2023 End: October 17, 2023 Robson Robins APRN Attending Provider Active Start: October 17, 2023 End: October 17, 2023 Team Status: Active Member Role Status Dates PHYSICIAN NO FAMILY Primary Care Provider Active Start: October 30, 2023 Mikey Mccord MD Attending Provider Active Start: October 30, 2023 Team Status: Inactive Member Role Status Dates Ed Lawton , DO Primary Care Provi radhames, Attending Provider Active Start: November 14, 2023 End: November 14, 2023 Team Status: Active Member Role Status Dates Ed Lawton , DO Primary Care Provider Active Team Status: Inactive Member Role Status Dates Ed Lawton , DO Primary Care Provi radhames, Attending Provider Active Start: August 08, 2023 End: August 08, 2023 Team Status: Active Member Role Status Dates PHYSICIAN NO FAMILY Primary Care Provider Active Start: August 09, 2023 Mikey Mccord MD Attending Provider Active Start: August 09, 2023 Team Status: Inactive Member Role Status Dates Ed Lawton , DO Primary Care Provi radhames, Attending Provider Active Start: August 15, 2023 End: August 15, 2023 Team Status: Inactive Member Role Status Dates [...] DO Primary Care Provider, Attending Provider Active Transportation Solutions Manager Relationship Specialty Start Date End Date Ed Lawton Nikhil [facility] [place] [address] PCP - General Family Medicine 10/30/19 Team Status: Active Member Role Status Dates PHYSICIAN NO FAMILY Primary Care Provider Active Start: February 13, 2023 Mikey Mccord MD Attending Provider Active Start: February 13, 2023 Team Status: Inactive Member Role Status Dates Ed Lawton DO Primary Care Provi radhames, Attending Provider Active Start: May 10, 2023 End: May 10, 2023 Transportation Solutions Manager Relationship Specialty Start Date End Date Jered Ed Tejeda DO [address] [place] [id number] PCP - General Family Medicine 10/30/19 Transportation Solutions Manager Relationship Specialty Start Date End Date JeredEd avila DO Nikhil [address] [place] [id number] PCP - General Family Medicine 10/30/19 Transportation Solutions Manager Relationship Specialty Start Date End Date Jered Ed Dailey DO PCP - General Family Medicine 05/22/18 Team Status: Active Member Role Status Dates Ed Lawton Attending Provider Active Start: May 16, 2023 Ed Lawton DO Primary Care Provider Active Start: May 16, 2023 Team Status: Active Member Role Status Dates PHYSICIAN NO FAMILY Primary Care Provider Active Start: June 13, 2023 Mikey Mccord MD Attending Provider Active Start: June 13, 2023 Transportation Solutions Manager Relationship Specialty Start Date End Date Ed Lawton DO PCP - General Family Medicine 05/22/18 Team Status: Active Member Role Status Dates Ed Lawton , DO Primary Care Provider Active Start: August 23, 2023 Neville Yee MD Attending Provider Active Start: August 23, 2023 Team Status: Active Member Role Status Dates PHYSICIAN NO FAMILY Primary Care Provider Active Start: August 28, 2023 Mikey Mccord MD Attending Provider Active Start: August 28, 2023 Team Status: Inactive Member Role Status Dates Ed Lawton DO Primary Care Provbryce ricci Attending Provider Active Start: September 05, 2023 End: September 05, 2023 Transportation Solutions Manager Relationship Specialty Start Date End Date Ed Lawton DO PCP - General Family Medicine 05/22/18 Transportation Solutions Manager Relationship Specialty Start Date End Date Ed Lawton DO PCP - General Family Medicine 05/22/18 Team Status: Active Member Role Status Dates PHYSICIAN NO FAMILY Primary Care Provider Active Start: September 06, 2023 Mikey Mccord MD Attending Provider Active Start: September 06, 2023 Team Status: Inactive Member Role Status Dates Ed Lawton DO Primary Care Provider Active Start: September 17, 2023 End: September 17, 2023 Josue Muro MD Attending Provider Active Start: September 17, 2023 End: September 17, 2023 Team Status: Active Member Role Status Dates Ed Lawton DO Primary Care Provider Active Start: September 17, 2023 Josue Muro MD Attending Provider, Other Provider Act vincenzo Start: September 17, 2023 Team Status: Active Member Role Status Dates Ed Lawton DO Primary Care Provider Active Start: September 18, 2023 Laura Fleming Attending Provider Active Start: 2023 Team Status: Active Member Role Status Dates Ed Lawton DO Primary Care Provider Active Start: September 25, 2023 minal Manzano Attending Provider Active Start: September 25, 2023 Team Status: Inactive Member Role Status Dates Ed Lawton , DO Primary Care Provider Active Start: October 17, 2023 End: October 17, 2023 Robson Robins APRN Attending Provider Active Start: October 17, 2023 End: October 17, 2023 Team Status: Active Member Role Status Dates PHYSICIAN NO FAMILY Primary Care Provider Active Start: October 30, 2023 Mikey Mccord MD Attending Provider Active Start: October 30, 2023 Team Status: Inactive Member Role Status Dates Ed Tejeda Jered , DO Primary Care Provi radhames, Attending Provider Active Start: November 14, 2023 End: November 14, 2023 Goals (unrecognized section and content) Goals may be documented in a n alternate section Source Comments (unrecognize d section and content) In the event this informatio n is protected by the Federal Confidentiality of Alcohol and Drug Abuse Patient Records regulations: The Federal rules restrict any use of the information to criminally investigate or prosecute any alcohol or drug abuse patient.[facility] the event this information is protected by the Federal Confidentiality of Alcohol and Drug Abuse Patient Records regulations: The Federal rules restrict any use of the information to criminally investigate or prosecute any alcohol or drug abuse patient.[facility] Health[facility] the event this information is protected by the Federal Confidentiality of Alcohol and Drug Abuse Patient Records regulations: The Federal rules restrict any use of the information to criminally investigate or prosecute any alcohol or drug abuse patient.[facility] Health[facility] the event this information is protected by the Federal Confidentiality of Alcohol and Drug Abuse Patient Records regulations: The Federal rules restrict any use of the information to criminally investigate or prosecute any alcohol or drug abuse patient.[facility] FOR RECORDS PERTAINING TO PATIENTS WHO ARE [...] BE BASED ON THE PRIMARY CLINICAL RECORDS. [facility] [employer] [facility]. provides no warranty or guarantee of the accuracy or completeness of information in this document.
[2023-11-22 16:11] LABS: TSH W/ REFLEX FT4 0.789 uIU/mL (0.358-3.740)
== END 2023-11-22 15:03 | disposition home or self-care (01) ==
LOC: LAB 15:05
DX: E03.9 Hypothyroidism, unspecified (principal)
CPT/HCPCS: 36415; 84443

== ENCOUNTER 2024-09-23 11:57 | Outpatient (OUT) | payer MEDICARE, SELFPAY ==
--- OUTSIDE RECORDS SUMMARY | 2024-09-18 10:39 | XMS_ITS ---
Author Name Auto Generated Organization OHIP Care Team Providers Care Sleep Lab Technician Name Role Phone ROSALINA EMERSON Referring Unavailable ED LAWTON Primary Care Unavailable BERNARDA JOYA Attending Unavailable ED LAWTON N Referring Unavailable ED LAWTON N Primary Care Unavailable BERNARDA JOYA Attending Unavailable BERNARDA JOYA Referring Unavailable JERED, ED N Primary Care Unavailable Jered, Ed N Attending Unavailable Jered, Ed N Admitting Unavailable Jered, Ed N Primary Care Unavailable Mikey Mccord Admitting Unavailab le Mikey Mccord Attending Unavailab le NO FAMILY, PHYSICIAN Primary Care Unavailable ALICIA THIBODEAUX Attending Unavailable JERED, ED Primary Care Unavailable MOHAN, SERVANDO Admitting Unavailable MOHAN, SERVANDO Referring Unavailable JERED, ED Primary Care Unavailable MOHAN, SERVANDO Admitting Unavailable MOHAN, SERVANDO Referring Unavailable JERED, ED Primary Care Unavailable MOHAN, SERVANDO Attending Unavailable JERED, ED Primary Care Unavailable JERED, ED Referring Unavailable MOHAN, SERVANDO Admitting Unavailable MOHAN, SERVANDO Attending Unavailable MOHAN, SERVANDO Attending Unavailable JERED, ED Primary Care Unavailable JERED, ED Referring Unavailable MOHAN, SERVANDO Attending Unavailable JERED, ED Primary Care Unavailable MOHAN, SERVANDO Attending Unavailable PROBLEMS DATE TYPE CONDITION / CODE ATTENDING STATUS [facility] 09/10/2024 Unknown Encounter for screening mammogram for malignant neoplasm of breast / Z12.31(ICD-10) Ed Lawton N [facility] 12/04/2023 Admitting diagnosis Personal history of non-Hodgkin lymphomas / Z85.72(ICD-10) [facility] 12/04/2023 Admitting diagnosis Abnormal weight loss / R63.4(ICD-10) [facility] 12/04/2023 Admitting diagnosis Fibromyalgia / M79.7(ICD-10) [facility] 09/02/2024 Admitting diagnosis Rheumatoid arthritis with rheumatoid factor of multiple sites without organ or systems involvement / M05.79(ICD-10) [facility] 09/02/2024 Admitting diagnosis [facility] [place] [facility] therapy / Z79.899(ICD-10) [facility] 12/04/2023 Admitting diagnosis Rheumatoid arthritis, unspecified / M06.9(ICD-10) [facility] 03/06/2022 Unknown Ischemic cardiomyopathy / I25.5(ICD-10) BERNARDA JOYA [place] 06/06/2024 Unknown Longstanding persistent atrial fibrillation / I48.11(ICD-10) BERNARDA JOYA [facility] 06/06/2024 Unknown Follow-up / FREETEXT(AOF) BERNARDA JOYA [facility] 06/06/2024 Unknown Cardiomyopathy / [facility]OF) [facility] Atrial Fibrillat ion / FREETEXT(AOF) BERNARDA JOYA [facility] 06/06/2024 Unknown Hypertension / FREETEXT(AOF) CLAUDIO JOYAAK [place] [facility] 06/02/2024 Admitting diagnosis Encounter for screening for other viral diseases / Z11.59(ICD-10) SERVANDO MOHAN Active [facility] 05/21/2023 Unknown 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 / I25.10(ICD-10) [facility] 03/06/2022 Unknown Paroxysmal atria l fibrillation / I48.0(ICD-10) [facility] PROCEDURES No Procedure Records Found RESULTS MM SCREENING MAMMO BI W/CAD Observed: 09/10/2024 2:00 PM Status: COMPLETED Source: [facility] [address] [place] [address] Mammography Report Signed Patient: Arian Fritz MR#: [id number] 9 : 1960 Acct:[id number] Age/Sex: 64 / F Adm Date: 09/10/24 Loc: [place] Room: Type: [facility] Attending Dr: Ed Lawton DO Ordering Provider: Ed Lawton DO Date of Service: 09/10/24 Procedure(s): MM screening mammo BI w/CAD Accession Number(s): ([id number]) MM/MM screening mammo BI w/CAD: Z12.31 - Encounter for screening mammogram for malignant ... Copies to: Ed Lawton DO CLINICAL DATA: Screening for malignancy. SCREENING MAMMOGRAM - FULL FIELD DIGITAL WITH TOMOSYNTHESIS AND CAD COMPARISON:Mammograms dating back to 2010 Tomosynthesis craniocaudal and mediolateral oblique views of both breasts were obtained using low- dose digital technique. This examination was reviewed with the aid of CAD. FINDINGS: The breast tissue is composed of scattered fibroglandular densities. There are no dominant masses, typically malignant calcifications or architectural distortion. There has been no significant interval change. MM/MM screening mammo BI w/CAD IMPRESSION: NO MAMMOGRAPHIC EVIDENCE OF MALIGNANCY. ROUTINE FOLLOW-UP IS RECOMMENDED IN ONE YEAR. RESULT CODE: 1 Negative DENSITY CODE: 2 (approximately 25-50% glandular) There are scattered areas of fibroglandular density. FOLLOW UP: 1YR The false-negative rate of mammography is approximately 10-percent. Management of a palpable abnormality must be based on clinical grounds. Patient was entered into a reminder system with a target due date for the next mammogram. Impression dictated by: Gary Welch Jr., D.ONiraj 09/10/2024 2:00 PM Dictation Location: [facility] Dictated By: Gary Welch Jr, DO 09/10/24 1400 Signed By: <Electronically signed by Gary Welch Jr, DO in OV> 09/10/24 1400 CREATININE Collected: 5 3:32 PM Status: F Source: [facility] TYPE CODE TESTS RESULT OUT OF RANGE REFERENCE UNITS LAB [id number] CREATININE 0.80 Normal 0.50-1.05 mg/dL LAB [id number] EGFR 82 Normal > OR = 60 mL/min/1. 73m2 Performed By: #### 809, 822, 823, 6399, 375 #### [facility] [address], [address] [place] [phone] Crime Scene Analyst: Vel Keith MD AST Collected: 5 3:32 PM Status: F Source: [facility] TYPE CODE TESTS RESULT OUT OF RANGE REFERENCE UNITS LAB [id number] AST 9 Low 10-35 U/L Performed By: #### 809, 822, 823, 6399, 375 #### [facility] [address], [address] [place] [address] Crime Scene Analyst: Vel Keith MD ALT Collected: 3:32 PM Status: F Source: [facility] TYPE CODE TESTS RESULT OUT OF RANGE REFERENCE UNITS LAB [id number] ALT 10 Normal 6-29 U/L Performed By: #### 809, 822, 823, 6399, 375 #### [facility] [address], [address] [place] [address] Crime Scene Analyst: Vel Keith MD SED RATE BY MODIFIED WESTERGREN Collected: 09/02/2024 3:32 PM Status: F Source: [facility] TYPE CODE TESTS RESULT OUT OF RANGE REFERENCE UNITS LAB [id number] SED RATE BY MODIFIED WESTERGREN 70 High < OR = 30 mm/h Performed By: #### 809, 822, 823, 6399, 375 #### [facility] [address], [address] [place] [address] Crime Scene Analyst: Vel Keith MD CBC (INCLUDES DIFF/PLT) Collected: 09/02/2024 3:32 PM Status: I Source: [facility] TYPE CODE TESTS RESULT OUT OF RANGE REFERENCE UNITS LAB [id number] WHITE BLOOD CELL COUNT LAB [id number] RED BLOOD CELL COUNT LAB [id number] HEMOGLOBIN LAB 17094724 HEMATOCRIT LAB 09349245 MCV LAB 88385136 MCH LAB 77612325 MCHC LAB 12478907 RDW LAB 98836134 PLATELET COUNT LAB 78811282 MPV LAB 43523304 ABSOLUTE NEUTROPHILS LAB 65821733 ABSOLUTE BAND NEUTROPHILS LAB 29182838 ABSOLUTE METAMYELOCYTES LAB 06581872 ABSOLUTE MYELOCYTES LAB 74149638 ABSOLUTE PROMYELOCYTES LAB 32112802 ABSOLUTE LYMPHOCYTES LAB 25113203 ABSOLUTE MONOCYTES LAB 26644423 ABSOLUTE EOSINOPHILS LAB 47404747 ABSOLUTE BASOPHILS LAB 25491967 ABSOLUTE BLASTS LAB 63004767 ABSOLUTE NUCLEAT ED RBC LAB 91777190 NEUTROPHILS LAB 31314469 BAND NEUTROPHILS LAB 38596946 METAMYELOCYTES LAB 75851191 MYELOCYTES LAB 56944646 PROMYELOCYTES LAB 18824221 LYMPHOCYTES LAB 93537843 REACTIVE LYMPHOCYTES LAB [id number] MONOCYTES LAB 48200008 EOSINOPHILS LAB [id number] BASOPHILS LAB 36739246 BLASTS LAB 22994394 NUCLEATED RBC LAB [id number] COMMENT(S) Performed By: #### 809, 822, 823, 5099, 375 #### [facility] [address], [address] [place] [address] Crime Scene Analyst: Vel Keith MD PROGRESS Observed: 09/02/2024 2:59 PM Status: COMPLETED Source: [facility] I had the pleasure of seeing Arian Fritz in FOLLOW UP at [facility] [address] [place] [phone] for Management of 1. Seropositive rheumatoid arthritis of multiple joints (HCC) methoTREXate (TREXALL) 2.5 MG tablet Sedimentation Rate Sedimentation Rate 2. Fibromyalgia gabapentin (NEURONTIN) 300 MG capsule 3. Abnormal weight loss 4. History of non-Hodgkin's lymphoma 5. Encounter for long-term (current) use of high-risk medication folic acid (FOLVITE) 1 MG tablet ALT AST CBC and Differential Creatinine, serum Creatinine, serum AST ALT CBC and Differential Interim history: 3-month follow-up On her first visit in my clinic, extensive past medical history for seropositive rheumatoid arthritis was documented. Patient had been out of her methotrexate for a long time, she was started on 4 tablets weekly with some improvement in joint pain swelling and stiffness. On the last visit dose was increased to 7 tablets weekly. Tolerating methotrexate without alopecia oral ulcers infections. Also was found to have elevated sedimentation rate of 111, she was started on Rituxan infusion, received first series of 2 on June 25 in July 09/2025. Tolerated well without any infusion reaction chest pain shortness of breath or rashes. She reports significant improvement in joint pain swelling and stiffness She was also advised to increase gabapentin 100 mg twice daily to 300 mg nightly for fibromyalgia pain. Pain has improved methotrexate and gabapentin without any side effects, no alopecia oral ulcers or infections from methotrexate, no nausea dizziness sedation from gabapentin She is also on a high dose of Lipitor at 80 mg daily But CPK normal Medications: Current Outpatient Medications Medication Sig Dispense Refill albuterol 90 mcg/actuation inhaler Inhale 2 (two) puffs . ALPRAZolam (XANAX) 1 MG tablet 1 (one) tablet (1 mg total) . amitriptyline (ELAVIL) 25 MG tablet .COMPLEX apixaban 5 mg Tab 1 (one) tablet (5 mg total) . aspirin 81 mg chewable tablet Chew and Swallow 1 (one) tablet (81 mg total) daily . atorvastatin (LIPITOR) 80 MG tablet Take 1 (one) tablet (80 mg total) by mouth daily . folic acid (FOLVITE) 1 MG tablet Take 1 (one) tablet (1 mg total) by mouth daily Do not take on the day of methotrexate . 30 tablet 3 furosemide (LASIX) 20 MG tablet 1 (one) tablet (20 mg total) . gabapentin (NEURONTIN) 300 MG capsule Take 1 (one) capsule (300 mg total) by mouth at bedtime . 30 capsule 3 Jardiance 10 mg Tab Take 1 (one) tablet (10 mg total) by mouth daily . levothyroxine (SYNTHROID, LEVOTHROID) 75 MCG tablet 1 (one) tablet (75 mcg total) . memantine (NAMENDA) 5 MG tablet .COMPLEX methoTREXate (TREXALL) 2.5 MG tablet Take 7 (seven) tablets (17.5 mg total) by mouth once a week . 28 tablet 3 metoprolol succinate (TOPROL-XL) 25 MG 24 hr tablet Take 1 (one) tablet (25 mg total) by mouth every morning . (Patient taking differently: Take 1 (one) tablet (25 mg total) by mouth every morning Takes 1/2 tablet daily .) pantoprazole (PROTONIX) 40 MG tablet 1 (one) tablet (40 mg total) . potassium chloride (KLOR-CON) 20 mEq packet 20 (twenty) mEq . No current facility-administered medications for this visit. 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 CVA (cerebral vascular accident) ([facility]) Dysphagia Fibromyalgia Fibromyalgia, primary GERD (gastroesophageal reflux disease) Hand swelling Hip arthrosis History of arteriography History of cardioversion Hyperlipidemia Hypothyroidism Iron deficiency anemia Knee swelling Low back pain Non Hodgkin's lymphoma (HCC) Osteoporosis Periarthritis of shoulder Pharyngeal dysphagia Rheumatoid arthritis (HCC) Past Surgical History: She Past Surgical History: Procedure Laterality Date CORONARY ANGIOPLASTY WITH STENT PLACEMENT 2017 THROAT SURGERY 1974 Social History: She Social History Socioeconomic History Marital status: Tobacco Use Smoking status: Every Day Current packs/day: 1.50 Average packs/day: 1.5 packs/day for 46.5 years (69.7 ttl pk-yrs) Types: Cigarettes Start date: 1978 Smokeless tobacco: Former Substance and Sexual Activity Alcohol use: Not Currently Drug use: Yes Types: Benzodiazepines, Marijuana Comment: Edibles Sexual activity: Not Currently Social Drivers of Health Food Insecurity: No Food Insecurity (06/06/2024) Received from [facility] [employer] Hunger Screening Within the past 12 months we worried whether our food would run out before we got money to buy more.: Never True Within the past 12 months the food we bought just didn't last and we didn't have money to get more.: Never True ROS- SEE ATTESTED STAFF NOTE Physical Examination: BP 105/64 (BP Location: Left arm, Patient Position: Sitting, BP Cuff Size: Adult) Pulse 64 Temp 98 degrees F (36.7 degrees C) (Oral) Ht 5' 2.5 Wt 56.1 kg (123 lb 9.6 oz) SpO2 93% Comment: Room air BMI 22.25 kg/m GENERAL: She is in no apparent distress. HEENT: No oral ulcers, malar rash ,parotid gland enlargement, uveitis. No alopecia NECK: Supple without thyromegaly. No cervical or supraclavicular lymphadenopathy. SKIN: Normal coloration and turgor, no rashes, petechiae or subcutaneous nodules, no eccymosis. HEART: Regular rate and rhythm without murmurs, rubs, or gallops. LUNGS: Clear to auscultation bilaterally without use of accessory muscles.No crakcles or rales MUSCULOSKELETAL: Reveals normal range of motion in all the joints, including the shoulders elbows wrists knees and ankles. Right ulnar styloid is not swollen, resolution of synovitis 10 out of 10 MCP and 10 out of 10 PIP joints and tenderness in all the small joints of the hands and feet has resolved Diagnostic Data: Component Latest Ref Rng 06/02/2024 WBC ([facility]) 3.8 - 10.8 Thousand/uL 7.4 RBC ([facility]) 3.80 - 5.10 Million/uL 4.52 Hemoglobin ([facility]) 11.7 - 15.5 g/dL 13.7 HCT ([facility]) 35.0 - 45.0 % 41.3 MCV ([facility]) 80.0 - 100.0 fL 91.4 MCH ([facility]) 27.0 - 33.0 pg 30.3 MCHC ([facility]) 32.0 - 36.0 g/dL 33.2 RDW ([facility]) 11.0 - 15.0 % 14.8 Platelets ([facility]) 140 - 400 Thousand/uL 347 MPV ([facility]) 7.5 - 12.5 fL 10.3 Absolute Neutrophils ([facility]) 1,500 - 7,800 cells/uL 4,211 Absolute Lymphocytes ([facility]) 850 - 3,900 cells/uL 2,605 Absolute Monocytes ([facility]) 200 - 950 cells/uL 437 Absolute Eosinophils ([facility]) 15 - 500 cells/uL 111 Absolute Basophils ([facility]) 0 - 200 cells/uL 37 Neutrophils ([facility]) % 56.9 Lymphocytes ([facility]) % 35.2 Monocytes ([facility]) % 5.9 Eosinophils ([facility]) % 1.5 Basophils ([facility]) % 0.5 Creatinine ([facility]) 0.50 - 1.05 mg/dL 0.88 eGFR ([facility]) > OR = 60 mL/min/1.73m2 73 Sed Rate ([facility]) < OR = 30 mm/h 111 (H) AST ([facility]) 10 - 35 U/L 8 (L) ALT ([facility]) 6 - 29 U/L 10 Creatine Kinase, Total ([facility]) 20 - 243 U/L 36 C - Reactive Protein ([facility]) <8.0 mg/L <3.0 Legend: (H) High (L) Low External labs February 26/2024, normal CBC normal complete metabolic profile and normal magnesium External lab October 2019, vitamin D level normal at 41, sed rate normal at 19, CRP 0.8, serum kappa free high at 28 External lab [facility] December 10, 2018, sed rate of 54, intact PTH normal at 60, no M protein (urine, 8, 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, sed rate 41, uric acid 6.8, rheumatoid factor greater than 650, CCP antibody greater than 250, normal [place] level, negative [place] profile, negative dsDNA antibody, In June 2018, elevated C3 at 171, C4 normal at 27, intact PTH elevated slightly at 73, 25-hydroxy vitamin D level normal at 51, serum kappa protein slightly high at 21, normal CPK of 46, negative PM SCL 70 antibody, RNA polymerase 3 antibody negative, TH/T0 antibody negative External lab August 22/2024, CBC within normal complete metabolic profile normal except for albumin of 3.8, serum creatinine normal at 0.78 No results found for: TSH , T3FREE , Y2UFRGD No results found for: GLUCOSE , BUN No results found for: CALCIUM No components found for: ESR , SEDIMENTATIO Chemistry Component Value Date/Time CREATININE 0.88 06/02/2024 1541 No results found for: CALCIUM , ALKPHOS , AST , ALT , BILITOT No results found for: WBC , HGB , HCT , MCV , PLT My clinical impression and plan 1. Seropositive rheumatoid arthritis of multiple joints (HCC), markedly improved methoTREXate (TREXALL) 2.5 MG tablet, continue 7 tablets weekly CRP, Inflammation Sedimentation Rate to assess disease activity. 2. Fibromyalgia, improved gabapentin (NEURONTIN) 300 MG capsule nightly to continue Continue Lipitor as CPK normal 3. Abnormal weight loss, stabilized 4. History of non-Hodgkin's lymphoma, no recurrence 5. Encounter for long-term (current) use of high-risk medication, no reported side effects folic acid (FOLVITE) 1 MG tablet daily to continue except day of methotrexate ALT AST CBC and Differential Creatinine, serum to monitor for disease activity Because autoimmune disease is associated with increased risk of atherosclerosis, recommend careful attention to blood pressure and lipid control. I recommend using the preventive guidelines established for people with diabetes. Return in about 3 months (around 12/03/2024) for Next scheduled follow up. Servando Mohan M.D. Rheumatology Ed Lawton, DO;No ref. provider found Note: This dictation was generated using [employer] voice recognition software. Please excuse any grammatical or spelling errors that may have occurred using the system. AUTHENTICATED BY SERVANDO MOHAN, ON 09/03/2024 17:42:15 CREATININE Collected: 3:41 PM Status: F Source: [facility] TYPE CODE TESTS RESULT OUT OF RANGE REFERENCE UNITS LAB [id number] CREATININE 0.88 Normal 0.50-1.05 mg/dL LAB [id number] EGFR 73 Normal > OR = 60 mL/min/1. 73m2 Performed By: #### 6399, 823 , 822, 375, 374, 809 #### [facility] [place] [address], [address] [place] [address] Crime Scene Analyst: Vel Keith MD AST Collected: 3:41 PM Status: F Source: [facility] TYPE CODE TESTS RESULT OUT OF RANGE REFERENCE UNITS LAB [id number] AST 8 Low 10-35 U/L Performed By: #### 6399, 823 , 822, 375, 374, 809 #### [facility] [address], [address] [place] [address] Crime Scene Analyst: Vel Keith MD ALT Collected: 3:41 PM Status: F Source: [facility] TYPE CODE TESTS RESULT OUT OF RANGE REFERENCE UNITS LAB [id number] ALT 10 Normal 6-29 U/L Performed By: #### 6399, 823 , 822, 375, 374, 809 #### [facility] [place] [address] Crime Scene Analyst: Vel Keith MD CREATINE KINASE, TOTAL Collected: 06/02 3:41 PM Status: F Source: [facility] TYPE CODE TESTS RESULT OUT OF RANGE REFERENCE UNITS LAB [id number] CREATINE KINASE, TOTAL 36 Normal 20-243 U/L Performed By: #### 6399, 823 , 822, 375, 374, 809 #### [facility] [place] [address] Crime Scene Analyst: Vel Keith MD SED RATE BY MODIFIED WESTERGREN Collected: 06/02/2024 3:41 PM Status: F Source: [facility] TYPE CODE TESTS RESULT OUT OF RANGE REFERENCE UNITS LAB [id number] SED RATE BY MODIFIED WESTERGREN 111 High < OR = 30 mm/h Performed By: #### 6399, 823 , 822, 375, 374, 809 #### [facility] [place] [address] Crime Scene Analyst: Vel Keith MD CBC (INCLUDES DIFF/PLT) Collected: 05/17 3:41 PM Status: F Source: [facility] TYPE CODE TESTS RESULT OUT OF RANGE REFERENCE UNITS LAB [id number] WHITE BLOOD CELL COUNT 7.4 Normal 3.8-10.8 Thousand /uL LAB [id number] RED BLOOD CELL COUNT 4.52 Normal 3.80-5.10 Million/ uL LAB [id number] HEMOGLOBIN 13.7 Normal 11.7-15.5 g/dL LAB [id number] HEMATOCRIT 41.3 Normal 35.0-45.0 % LAB [id number] MCV 91.4 Normal 80.0-100.0 fL LAB 55697351 MCH 30.3 Normal 27.0-33.0 pg LAB [id number] MCHC 33.2 Normal 32.0-36.0 g/dL Result Comment: For adults, a slight decrease in the calculated MCHC value (in the range of 30 to 32 g/dL) is most likely not clinically significant; however, it should be interpreted with caution in correlation with other red cell parameters and the patient's clinical condition. LAB [id number] RDW 14.8 Normal 11.0-15.0 % LAB [id number] PLATELET COUNT 347 Normal 140-400 Thousand /uL LAB [id number] MPV 10.3 Normal 7.5-12.5 fL LAB [id number] ABSOLUTE NEUTROPHILS 4211 Normal 3592-0573 cells/uL LAB [id number] ABSOLUTE LYMPHOCYTES 2605 Normal 850-3900 cells/uL LAB [id number] ABSOLUTE MONOCYTES 437 Normal 200-950 cells/uL LAB [id number] ABSOLUTE EOSINOPHILS 111 Normal 15-500 cells/uL LAB [id number] ABSOLUTE BASOPHILS 37 Normal 0-200 cells/uL LAB [id number] NEUTROPHILS 56.9 Normal % LAB [id number] LYMPHOCYTES 35.2 Normal % LAB [id number] MONOCYTES 5.9 Normal % LAB [id number] EOSINOPHILS 1.5 Normal % LAB [id number] BASOPHILS 0.5 Normal % Performed By: #### 6399, 823 , 822, 375, 374, 809 #### [facility] [address], [address] [place] [phone] Crime Scene Analyst: Vel Keith MD C-REACTIVE PROTEIN Collected: 5 3:41 PM Status: F Source: [facility] TYPE CODE TESTS RESULT OUT OF RANGE REFERENCE UNITS LAB [id number] C-REACTIVE PROTEIN <3.0 Normal <8.0 mg/L Performed By: #### 6399, 823 , 822, 375, 374, 809 #### [facility] [address], [address] [place] [address] Crime Scene Analyst: Vel Keith MD PROGRESS Observed: 06/02/2024 3:00 PM Status: COMPLETED Source: [facility] I had the pleasure of seeing Arian Fritz in FOLLOW UP at [facility] [address] [facility] [phone] for Management of 1. Seropositive rheumatoid arthritis of multiple joints (HCC) methoTREXate (TREXALL) 2.5 MG tablet CRP, Inflammation Sedimentation Rate 2. Fibromyalgia gabapentin (NEURONTIN) 300 MG capsule CPK NO MB 3. Abnormal weight loss 4. History of non-Hodgkin's lymphoma 5. Encounter for long-term (current) use of high-risk medication folic acid (FOLVITE) 1 MG tablet ALT AST CBC and Differential Creatinine, serum 6. Encounter for screening for other viral diseases 7. Myalgia Interim history: 4-month follow-up On her first visit in my clinic, extensive past medical history for seropositive rheumatoid arthritis is documented. Patient had been out of her methotrexate for a long time, she was started on 4 tablets weekly with some improvement in joint pain swelling and stiffness. On the last visit dose was increased to 6 tablets weekly tolerating methotrexate without alopecia oral ulcers infections. She was also advised to increase gabapentin 100 mg twice daily from nightly for fibromyalgia pain. She reports no significant improvement in generalized body pain. Joint pain swelling and stiffness slightly decreased but still quite symptomatic tolerating methotrexate and gabapentin without any side effects, no alopecia oral ulcers or infections from methotrexate, no nausea dizziness sedation from gabapentin She is also on a high dose of Lipitor at 80 mg daily Medications: Current Outpatient Medications Medication Sig Dispense Refill albuterol 90 mcg/actuation inhaler Inhale 2 (two) puffs . ALPRAZolam (XANAX) 1 MG tablet 1 (one) tablet (1 mg total) . amitriptyline (ELAVIL) 25 MG tablet .COMPLEX apixaban 5 mg Tab 1 (one) tablet (5 mg total) . aspirin 81 mg chewable tablet Chew and Swallow 1 (one) tablet (81 mg total) daily . atorvastatin (LIPITOR) 80 MG tablet Take 1 (one) tablet (80 mg total) by mouth daily . folic acid (FOLVITE) 1 MG tablet Take 1 (one) tablet (1 mg total) by mouth daily Do not take on the day of methotrexate . 30 tablet 3 furosemide (LASIX) 20 MG tablet 1 (one) tablet (20 mg total) . gabapentin (Neurontin) 100 MG capsule Take 2 (two) capsules (200 mg total) by mouth nightly . 30 capsule 3 Jardiance 10 mg Tab Take 1 (one) tablet (10 mg total) by mouth daily . levothyroxine (SYNTHROID, LEVOTHROID) 75 MCG tablet 1 (one) tablet (75 mcg total) . memantine (NAMENDA) 5 MG tablet .COMPLEX methoTREXate (TREXALL) 2.5 MG tablet Take 6 (six) tablets (15 mg total) by mouth once a week . 24 tablet 3 metoprolol succinate (TOPROL-XL) 25 MG 24 hr tablet Take 1 (one) tablet (25 mg total) by mouth every morning . pantoprazole (PROTONIX) 40 MG tablet 1 (one) tablet (40 mg total) . potassium chloride (KLOR-CON) 20 mEq packet 20 (twenty) mEq . No current facility-administered medications for this visit. Past Medical History: She Past Medical History: Diagnosis Date Anxiety Arthritis of neck Atrial fibrillation with rapid ventricular response (HCC) Atrial flutter (HCC) Bipolar II disorder (HCC) Branchial cleft Chronic fatigue Chronic systolic CHF (congestive heart failure) (HCC) Cigarette nicotine dependence COPD (chronic obstructive pulmonary disease) (HCC) Coronary artery disease involving [place] artery of transplanted heart without angina pectoris CVA (cerebral vascular accident) (HCC) Dysphagia Fibromyalgia Fibromyalgia, primary GERD (gastroesophageal reflux disease) Hand swelling Hip arthrosis History of arteriography History of cardioversion Hyperlipidemia Hypothyroidism Iron deficiency anemia Knee swelling Low back pain Non Hodgkin's lymphoma (HCC) Osteoporosis Periarthritis of shoulder Pharyngeal dysphagia Rheumatoid arthritis (HCC) Past Surgical History: She Past Surgical History: Procedure Laterality Date CORONARY ANGIOPLASTY WITH STENT PLACEMENT 2017 THROAT SURGERY 1974 Social History: She Social History Socioeconomic History Marital status: Tobacco Use Smoking status: Every Day Current packs/day: 1.50 Average packs/day: 1.5 packs/day for 46.2 years (69.3 ttl pk-yrs) Types: Cigarettes Start date: 1978 Smokeless tobacco: Former Substance and Sexual Activity Alcohol use: Not Currently Drug use: Yes Types: Benzodiazepines, Marijuana Comment: Edibles Sexual activity: Not Currently Social Drivers of Health Food Insecurity: No Food Insecurity (05/21/2023) Received from [facility] Hunger Screening Within the past 12 months we worried whether our food would run out before we got money to buy more.: Never True Within the past 12 months the food we bought just didn't last and we didn't have money to get more.: Never True ROS- SEE ATTESTED STAFF NOTE Physical Examination: BP 135/82 (BP Location: Left arm, Patient Position: Sitting, BP Cuff Size: Adult) Pulse 73 Temp 97.5 degrees F (36.4 degrees C) (Oral) Ht 5' 2.5 Wt 55.5 kg (122 lb 6.4 oz) SpO2 95% Comment: Room air BMI 22.03 kg/m GENERAL: She is in no apparent distress. HEENT: No oral ulcers, malar rash ,parotid gland enlargement, uveitis. No alopecia NECK: Supple without thyromegaly. No cervical or supraclavicular lymphadenopathy. SKIN: Normal coloration and turgor, no rashes, petechiae or subcutaneous nodules, no eccymosis. HEART: Regular rate and rhythm without murmurs, rubs, or gallops. LUNGS: Clear to auscultation bilaterally without use of accessory muscles.No crakcles or rales MUSCULOSKELETAL: Reveals normal range of motion in all the joints, including the shoulders elbows wrists knees and ankles. Right ulnar styloid is not swollen, resolution of synovitis 10 out of 10 MCP and 10 out of 10 PIP joints but all the joints are slightly tender.. Metatarsal joints are slightly tender 10 out of 10. 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, sed rate 41, uric acid 6.8, rheumatoid factor greater than 650, CCP antibody greater than 250, normal [place] level, negative [place] profile, negative dsDNA antibody, In June 2018, elevated C3 at 171, C4 normal at 27, intact PTH elevated slightly at 73, 25-hydroxy vitamin D level normal at 51, serum kappa protein slightly high at 21, normal CPK of 46, negative PM SCL 70 antibody, RNA polymerase 3 antibody negative, TH/T0 antibody negative External lab August 22/2024, CBC within normal complete metabolic profile normal except for albumin of 3.8, serum creatinine normal at 0.78 No results found for: TSH , T3FREE , [id number] No results found for: GLUCOSE , BUN No results found for: CALCIUM No components found for: ESR , SEDIMENTATIO Chemistry No results found for: NA , K , CL , BUN , CREATININE , GLU No results found for: CALCIUM , ALKPHOS , AST , ALT , BILITOT No results found for: WBC , HGB , HCT , MCV , PLT My clinical impression and plan 1. 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 If significantly high, consider Rituxan infusion 2. Fibromyalgia, not fully controlled gabapentin (NEURONTIN) 300 MG capsule nightly instead of 200 mg daily CPK NO MB to rule out myalgia from statins. Consider decreasing the dose of Lipitor from 80 mg to 40 mg, will discuss with cardiology 3. Abnormal weight loss, stabilized 4. History of non-Hodgkin's lymphoma, no recurrence 5. Encounter for long-term (current) use of high-risk medication folic acid (FOLVITE) 1 MG tablet ALT AST CBC and Differential Creatinine, serum Because autoimmune disease is associated with increased risk of atherosclerosis, recommend careful attention to blood pressure and lipid control. I recommend using the preventive guidelines established for people with diabetes. Return in about 3 months (around 09/02/2024) for Next scheduled follow up. Servando Mohan M.D. Rheumatology Ed [place], DO;No ref. provider found Note: This dictation was generated using Webcollage voice recognition software. Please excuse any grammatical or spelling errors that may have occurred using the system. AUTHENTICATED BY SERVANDO MOHAN, ON 06/02/2024 15:28:35 COMPLETE BLOOD COUNT Collected: 02/27/2024 12:1 5 PM Status: COMPLETED Source: [facility] TYPE CODE TESTS RESULT OUT OF RANGE REFERENCE UNITS LAB WBC(LOINC) WBC COUNT 7.2 4.0-11.0 X10E9/L LAB RBC(LOINC) RBC COUNT 4.49 3.80-5.20 X10E12/L LAB HGB(LOINC) HEMOGLOBIN 12.9 11.7-15.5 g/dL LAB HCT(LOINC) HEMATOCRIT 39.3 35-47 % LAB MCV(LOINC) MCV 88 80-100 fL LAB MCH(LOINC) MCH 28.8 27-34 pg LAB MCHC(LOINC) MCHC 32.9 32-36 g/dL LAB RDW(LOINC) RDW 18.0 High 11.5-15.0 % LAB PLTC(LOINC) PLATELET COUNT 337 150-450 X10E9 /L LAB MPV(LOINC) MPV 9.6 7-12 fL Performed By: #### CBC, CMP, 90508-9, 90454-4 #### [facility] ([id number]) [address], [address] [place] [address] COMPREHENSIVE METABOLIC PANEL Collected : 02/27/2024 12:15 PM Status: COMPLETED Source: [facility] TYPE CODE TESTS RESULT OUT OF RANGE REFERENCE UNITS LAB NA(LOINC) SODIUM 137 134-146 mmol/L LAB K(LOINC) POTASSIUM 3.5 3.5-5.0 mmol/L LAB CL(LOINC) CHLORIDE 99 98-109 mmol/L LAB CO2(LOINC) CARBON DIOXIDE 30 22-32 mmol/L LAB AGAP(LOINC) ANION GAP 8 5-15 mmol/L LAB BUN(LOINC) BLOOD UREA NITROGEN 8 5-27 mg/dL LAB CRET(LOINC) CREATININE 0.81 0.40-1.00 mg/dL Result Comment: METHOD TRACE ABLE TO IDMS STANDARD LAB GLU(LOINC) GLUCOSE 83 65-99 mg/dL LAB CA(LOINC) CALCIUM 9.5 8.5-10.5 mg/dL LAB TP(LOINC) TOTAL PROTEIN 8.0 6.0-8.0 g/dL LAB ALB(LOINC) ALBUMIN 3.8 3.2-5.3 g/dL LAB ALK(LOINC) ALKALINE PHOSPHATASE 106 39-130 U/L LAB AST(LOINC) AST 18 0-41 U/L LAB ALT1(LOINC) ALT 12 0-31 U/L LAB TBIL(LOINC) BILIRUBIN,TOTAL 0.8 0.3-1.2 mg/d L LAB EGFR(LOINC) eGFR (CKD-EPI) NON-RACE DEPENDENT 81 >59 ml/min/1 .73sq.m Result Comment: Reported eGFR is based on the CKD-EPI 2020 equation that does not use a race coefficient. Performed By: #### ARTUR BROOKE, 73796-9, 08747-3 #### [facility] ([id number]) [address] [place] [address], [address] [place] [address] LIPID PROFILE Collected: 02/27/2024 12:15 PM Status: COMPLETED Source: [facility] TYPE CODE TESTS RESULT OUT OF RANGE REFERENCE UNITS LAB CHOL(LOINC) CHOLESTEROL 137 Low 150-200 mg/dL LAB TRIG(LOINC) TRIGLYCERIDE 88 27-150 mg/dL LAB HDL(LOINC) HDL CHOLESTEROL 48 >39 mg/dL Result Comment: HDL <40 mg/dL - High Risk HDL > or = 40mg/dL- Desirable HDL >60 mg/dL - Negative Risk LAB VLDL(LOINC) VERY LOW LIPOPROTEIN 18 0-30 mg/dL LAB LDL(LOINC) LDL (CALC) 71 <130 mg/dL Result Comment: LDL <100 mg/dL - Desirable LDL >160 mg/dL - High Risk LAB CHDL(LOINC) CHOLESTEROL:HDL 2.9 1.0-5.0 Performed By: #### ARTUR BROOKE, 71421-4, 11256-7 #### [facility] ([id number]) [address] [place] [address], [address] [place] [address] MAGNESIUM Collected: 02/27/2024 12:15 PM Status: COMPLETED Source: [facility] TYPE CODE TESTS RESULT OUT OF RANGE REFERENCE UNITS LAB MG(LOINC) MAGNESIUM 1.9 1.8-2.6 mg/dL Performed By: #### CBC, [facility], 73539-4, 37034-5 #### [facility] ([id number]) [address], [address] [place] [address] T-SPOT(R).TB Collected: 4 4:10 PM Status: F Source: [facility] Order Comment: FASTING:NO RECD IN [place] FASTING: NO TYPE CODE TESTS RESULT OUT OF RANGE REFERENCE UNITS LAB [id number] T-SPOT.TB Negative Negative Result Comment: A negative test result does not exclude the possibility of exposure to or infection with Mycobacterium tuberculosis (M. tuberculosis). Patients with recent exposure to TB infected individuals exhibiting a negative T-SPOT.TB result should be considered for retesting within 6 weeks or if other relevant clinical symptoms indicate. Results from T-SPOT.TB testing must be used in conjunction with each individual's epidemiological history, current medical status, and results of other diagnostic evaluations. The T-SPOT.TB test is qualitative and results are reported as positive, borderline, or negative, given that the test controls perform as expected. In line with the Centers for Disease Control and Prevention's 2010 recommendation to report quantitative measurements alongside the qualitative result, the laboratory provides spot counts for informational purposes only. The T-SPOT.TB test should not be interpreted as a quantitative test. LAB [id number] PANEL A SPOT COUNT CORRECTED FOR NEG CONTROL 0 LAB [id number] PANEL B SPOT COUNT CORRECTED FOR NEG CONTROL 0 LAB [id number] NEGATIVE CONTROL Passed LAB [id number] POSITIVE CONTROL Passed Result Comment: For additional information, please refer to http://education.GeoLearning/faq/CTA511 (This link is being provided for informational/ educational purposes only.) Performed By: #### [id number] ### # Nikia Do[place] [address] [place] [address] Crime Scene Analyst: Abimael Balderas M.D.,PhD CREATININE Collected: 4 3:38 PM Status: F Source: [facility] Order Comment: FASTING:NO FASTING: NO TYPE CODE TESTS RESULT OUT OF RANGE REFERENCE UNITS LAB [id number] CREATININE 0.73 Normal 0.50-1.05 mg/dL LAB [id number] EGFR 92 Normal > OR = 60 mL/min/1. 73m2 Performed By: #### 6399, 822 , 375, 823, 499, 8472 #### [facility] [address], [address] [place] [address] Crime Scene Analyst: Vel Keith MD AST Collected: 4 3:38 PM Status: F Source: [facility] TYPE CODE TESTS RESULT OUT OF RANGE REFERENCE UNITS LAB [id number] AST 6 Low 10-35 U/L Performed By: #### 6399, 822 , 375, 823, 499, 8472 #### [facility] [address], [address] [place] [address] Crime Scene Analyst: Vel Keith MD ALT Collected: 4 3:38 PM Status: F Source: [facility] TYPE CODE TESTS RESULT OUT OF RANGE REFERENCE UNITS LAB [id number] ALT 10 Normal 6-29 U/L Performed By: #### 6399, 822 , 375, 823, 499, 8472 #### [facility] [address], [address] [place] [address] Crime Scene Analyst: Vel Keith MD CBC (INCLUDES DIFF/PLT) Collected: 01/17 3:38 PM Status: F Source: [facility] TYPE CODE TESTS RESULT OUT OF RANGE REFERENCE UNITS LAB [id number] WHITE BLOOD CELL COUNT 7.7 Normal 3.8-10.8 Thousand /uL LAB [id number] RED BLOOD CELL COUNT 4.45 Normal 3.80-5.10 Million/ uL LAB [id number] HEMOGLOBIN 12.4 Normal 11.7-15.5 g/dL LAB [id number] HEMATOCRIT 38.6 Normal 35.0-45.0 % LAB [id number] MCV 86.7 Normal 80.0-100.0 fL LAB [id number] MCH 27.9 Normal 27.0-33.0 pg LAB [id number] MCHC 32.1 Normal 32.0-36.0 g/dL Result Comment: For adults, a slight decrease in the calculated MCHC value (in the range of 30 to 32 g/dL) is most likely not clinically significant; however, it should be interpreted with caution in correlation with other red cell parameters and the patient's clinical condition. LAB [id number] RDW 15.6 High 11.0-15.0 % LAB [id number] PLATELET COUNT 385 Normal 140-400 Thousand /uL LAB [id number] MPV 10.6 Normal 7.5-12.5 fL LAB [id number] ABSOLUTE NEUTROPHILS 4266 Normal 3168-3572 cells/uL LAB [id number] ABSOLUTE LYMPHOCYTES 2626 Normal 850-3900 cells/uL LAB [id number] ABSOLUTE MONOCYTES 554 Normal 200-950 cells/uL LAB [id number] ABSOLUTE EOSINOPHILS 200 Normal 15-500 cells/uL LAB [id number] ABSOLUTE BASOPHILS 54 Normal 0-200 cells/uL LAB [id number] NEUTROPHILS 55.4 Normal % LAB [id number] LYMPHOCYTES 34.1 Normal % LAB [id number] MONOCYTES 7.2 Normal % LAB [id number] EOSINOPHILS 2.6 Normal % LAB [id number] BASOPHILS 0.7 Normal % Performed By: #### 6399, 822 , 375, 823, 499, 8472 #### [facility] [address], [address] [place], [place] [id number] Crime Scene Analyst: Vel Keith MD HEPATITIS B SURFACE ANTIGEN W/REFL CONFIRM Collected: 01/28/2024 3:38 PM Status: F Source: [facility] TYPE CODE TESTS RESULT OUT OF RANGE REFERENCE UNITS LAB [id number] HEPATITIS B SURFACE ANTIGEN NON-REACTIVE Normal NON-REACTIVE Result Comment: For additional information, please refer to http://education.imgScrimmage.Eventable/faq/OXY357 (This link is being provided for informational/ educational purposes only.) Performed By: #### 6399, 822 , 375, 823, 499, 8472 #### [facility] [address], [address] [place] [phone] Crime Scene Analyst: Vel Keith MD HEPATITIS B SURFACE ANTIBODY QL Collected: 01/28/2024 3:38 PM Status: F Source: [facility] TYPE CODE TESTS RESULT OUT OF RANGE REFERENCE UNITS LAB [id number] HEPATITIS B SURFACE ANTIBODY QL NON-REACTIVE Normal NON-REACTIVE Performed By: #### 6399, 822 , 375, 823, 499, 8472 #### [facility] [address], [address] [place], [place] [phone] Crime Scene Analyst: Vel Keith MD HEPATITIS C AB W/REFL TO HCV RNA, QN, PCR Collected: 01/28/2024 3:38 PM Status: F Source: [facility] TYPE CODE TESTS RESULT OUT OF RANGE REFERENCE UNITS LAB [id number] HEPATITIS C ANTIBODY NON-REACTIVE Normal NON-REACTIVE Result Comment: HCV antibody was non-reactive. There is no laboratory evidence of HCV infection. In most cases, no further action is required. However, if recent HCV exposure is suspected, a test for HCV RNA (test code 99130) is suggested. For additional information please refer to http://education.GeoLearning/faq/QHF20i6 (This link is being provided for informational/ educational purposes only.) Performed By: #### 6399, 822 , 375, 823, 499, 8472 #### [facility] [address] [facility], [address] [place] [phone] Crime Scene Analyst: Vel Keith MD PROGRESS Observed: 01/28/2024 2:38 PM Status: COMPLETED Source: [facility] I had the pleasure of seeing Arian Fritz in FOLLOW UP at [facility] RHE[facility] [address] [place] [phone] for Management of 1. 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 Fibromyalgia gabapentin (Neurontin) 100 MG capsule 3. Abnormal weight loss 4. History of non-Hodgkin's lymphoma 5. Encounter for long-term (current) use of high-risk medication folic acid (FOLVITE) 1 MG tablet ALT AST CBC and Differential Creatinine, serum T-Spot TB Screen Creatinine, serum AST ALT 6. Encounter for screening for other viral diseases Hepatitis B Surface Antibody Hepatitis B Surface Antigen Hepatitis C Antibody Interim history: 2-month follow-up On the last visit which was her first visit in my clinic, extensive past medical history for seropositive rheumatoid arthritis is documented. Patient had been out of her methotrexate for a long time, she was started on 4 tablets weekly with some improvement in joint pain swelling and stiffness. But she is still symptomatic. Tolerating methotrexate without alopecia oral ulcers infections. She was started on gabapentin 100 mg nightly for fibromyalgia pain. She has had minimal response to it. She is more active than before Medications: Current Outpatient Medications Medication Sig Dispense Refill albuterol 90 mcg/actuation inhaler Inhale 2 (two) puffs . ALPRAZolam (XANAX) 1 MG tablet 1 (one) tablet (1 mg total) . amitriptyline (ELAVIL) 25 MG tablet .COMPLEX apixaban 5 mg Tab 1 (one) tablet (5 mg total) . aspirin 81 mg chewable tablet Chew and Swallow 1 (one) tablet (81 mg total) daily . atorvastatin (LIPITOR) 80 MG tablet Take 1 (one) tablet (80 mg total) by mouth daily . folic acid (FOLVITE) 1 MG tablet Take 1 (one) tablet (1 mg total) by mouth daily Do not take on the day of methotrexate . 30 tablet 2 furosemide (LASIX) 20 MG tablet 1 (one) tablet (20 mg total) . gabapentin (Neurontin) 100 MG capsule Take 1 (one) capsule (100 mg total) by mouth nightly . 30 capsule 2 Jardiance 10 mg Tab Take 1 (one) tablet (10 mg total) by mouth daily . levothyroxine (SYNTHROID, LEVOTHROID) 75 MCG tablet 1 (one) tablet (75 mcg total) . methoTREXate (TREXALL) 2.5 MG tablet Take 4 (four) tablets (10 mg total) by mouth once a week . 16 tablet 2 metoprolol succinate (TOPROL-XL) 25 MG 24 hr tablet Take 1 (one) tablet (25 mg total) by mouth every morning . pantoprazole (PROTONIX) 40 MG tablet 1 (one) tablet (40 mg total) . potassium chloride (KLOR-CON) 20 mEq packet 20 (twenty) mEq . No current facility-administered medications for this visit. Past Medical History: She Past Medical History: Diagnosis Date Anxiety Atrial fibrillation with rapid ventricular response (HCC) Atrial flutter ([facility]) Bipolar II disorder ([facility]) Branchial cleft Chronic fatigue Chronic systolic CHF (congestive heart failure) ([facility]) Cigarette nicotine dependence COPD (chronic obstructive pulmonary disease) ([facility]) Coronary artery disease involving [place] artery of transplanted heart without angina pectoris CVA (cerebral vascular accident) ([facility]) Dysphagia Fibromyalgia GERD (gastroesophageal reflux disease) History of arteriography History of cardioversion Hyperlipidemia Hypothyroidism Iron deficiency anemia Non Hodgkin's lymphoma (HCC) Osteoporosis Pharyngeal dysphagia Rheumatoid arthritis ([facility]) Past Surgical History: She Past Surgical History: Procedure Laterality Date CORONARY ANGIOPLASTY WITH STENT PLACEMENT 2016 THROAT SURGERY 1974 Social History: She Social History Socioeconomic History Marital status: Tobacco Use Smoking status: Every Day Current packs/day: 1.50 Average packs/day: 1.5 packs/day for 45.9 years (68.8 ttl pk-yrs) Types: Cigarettes Start date: 1978 Smokeless tobacco: Former Substance and Sexual Activity Alcohol use: Not Currently Drug use: Yes Types: Marijuana Comment: Edibles Sexual activity: Not Currently Social Drivers of Health Food Insecurity: No Food Insecurity (05/21/2023) Received from [employer] Hunger Screening Within the past 12 months we worried whether our food would run out before we got money to buy more.: Never True Within the past 12 months the food we bought just didn't last and we didn't have money to get more.: Never True ROS- SEE ATTESTED STAFF NOTE Physical Examination: BP 122/80 (BP Location: Left arm, Patient Position: Sitting, BP Cuff Size: Adult) Pulse 67 Temp 97.6 degrees F (36.4 degrees C) (Temporal) Ht 5' 2.5 Wt 54.6 kg (120 lb 6.4 oz) SpO2 95% Comment: Room air BMI 21.67 kg/m GENERAL: She is in no apparent distress. HEENT: No oral ulcers, malar rash ,parotid gland enlargement, uveitis. No alopecia NECK: Supple without thyromegaly. No cervical or supraclavicular lymphadenopathy. SKIN: Normal coloration and turgor, no rashes, petechiae or subcutaneous nodules, no eccymosis. HEART: Regular rate and rhythm without murmurs, rubs, or gallops. LUNGS: Clear to auscultation bilaterally without use of accessory muscles.No crakcles or rales MUSCULOSKELETAL: Reveals normal range of motion in all the joints, including the shoulders elbows wrists knees and ankles. Right ulnar styloid is swollen and tender compared to left, 10 out of 10 MCP and 10 out of 10 PIP joints still slightly swollen and tender but improved from last visit, right third and fourth MCP joint is particularly worse Multiple tender points of FMS absent. Metatarsal joints are slightly tender 10 out of 10. 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, sed rate 41, uric acid 6.8, rheumatoid factor greater than 650, CCP antibody greater than 250, normal [place] level, negative [place] profile, negative dsDNA antibody, In June 2018, elevated C3 at 171, C4 normal at 27, intact PTH elevated slightly at 73, 25-hydroxy vitamin D level normal at 51, serum kappa protein slightly high at 21, normal CPK of 46, negative PM SCL 70 antibody, RNA polymerase 3 antibody negative, TH/T0 antibody negative External lab August 22/2024, CBC within normal complete metabolic profile normal except for albumin of 3.8, serum creatinine normal at 0.78 No results found for: TSH , T3FREE , D5OERUA No results found for: GLUCOSE , BUN No results found for: CALCIUM No components found for: ESR , SEDIMENTATIO Chemistry No results found for: NA , K , CL , BUN , CREATININE , GLU No results found for: CALCIUM , ALKPHOS , AST , ALT , BILITOT No results found for: WBC , HGB , HCT , MCV , PLT My clinical impression and plan 1. Seropositive rheumatoid arthritis of multiple joints (HCC), improvement noted methoTREXate (TREXALL) 2.5 MG tablet. Increased from 4 to 6 tablets weekly 2. Fibromyalgia, improvement noted but still symptomatic gabapentin (Neurontin) 100 MG capsule, increase from 1 to 2 capsules at bedtime 3. Abnormal weight loss, stabilized. She has had some weight gain 4. History of non-Hodgkin's lymphoma, in remission If another therapy needed for rheumatoid arthritis would consider Rituxan infusion in view of previous history of lymphoma 5. Encounter for long-term (current) use of high-risk medication, no major adverse effects folic acid (FOLVITE) 1 MG tablet daily to counteract toxicities ALT AST CBC and Differential Creatinine, serum T-Spot TB Screen Creatinine, serum AST ALT, these labs will be prerequisite for infusions 6. Encounter for screening for other viral diseases Hepatitis B Surface Antibody Hepatitis B Surface Antigen Hepatitis C Antibody, prerequisite for Rituxan infusion if initiated Because autoimmune disease is associated with increased risk of atherosclerosis, recommend careful attention to blood pressure and lipid control. I recommend using the preventive guidelines established for people with diabetes. Return in about 3 months (around 04/29/2024) for Next scheduled follow up. Servando Mohan M.D. Rheumatology Ed [place] DO;Ed [place] DO Note: This dictation was generated using Webcollage voice recognition software. Please excuse any grammatical or spelling errors that may have occurred using the system. AUTHENTICATED BY SERVANDO MOHAN, ON 01/29/2024 09:04:06 PROGRESS Observed: 12/04/2023 1:09 PM Status: COMPLETED Source: [facility] I had the pleasure of seeing Arian Fritz in consultation at [facility] RHE[facility] [address] [place] [phone] for evaluation of rheumatoid arthritis Ed Lawton DO;Ed Lawton DO HISTORY OF PRESENT ILLNESS: Arian Fritz is a 63 y.o. female who presents to establish rheumatologic care. She is accompanied by her daughter Shady who is my patient as well. A lot of information is volunteered by Shady as Ms. Chau has difficulty remembering. It appears that she was diagnosed with rheumatoid arthritis while she was in her early 40s. She has been treated as follows 1.with methotrexate which helped her for a little while but then stopped working. She does not remember any side effects. 2.Arava was tried without any benefit 3.Plaquenil which caused eye adverse effects, she used it many years ago, does not know if she was on 1 or 2 pills. Last eye examination was 1 year ago and there was no macular degeneration It appears she has not been treated with Remicade Enbrel Humira or Rituxan or Orencia or Actemra. Patient has history of COPD and CHF, Orencia and anti-TNF relatively contraindicated respectively. She denies any diverticulitis, Actemra can be considered if needed in the future Patient has a history of non-Hodgkin lymphoma which was diagnosed in the year 2002, she was treated with chemotherapy and is in remission. She is very wary of using biologicals because of this history. She has been treated with Cymbalta in the past which worked for depression but not for arthritis, she is currently only on Xanax and Elavil. Patient has had massive weight loss, closer to 100 pounds in the last year, extensive workup has been negative. She has seen oncology. There is no recurrence of lymphoma and no new cancers. She does use marijuana edibles on a daily basis for pain relief. She is on diuretic for congestive heart failure She also has a history of CVA which contributes to memory loss She is a 15-khtl-kzhn smoker and still continues to smoke Allergies: She Allergies Allergen Reactions Prochlorperazine GI Intolerance and Other (See Comments) Neurological sx compazine compazine Medications: Current Outpatient Medications Medication Sig Dispense Refill albuterol 90 mcg/actuation inhaler Inhale 2 (two) puffs . ALPRAZolam (XANAX) 1 MG tablet 1 (one) tablet (1 mg total) . amitriptyline (ELAVIL) 25 MG tablet .COMPLEX apixaban 5 mg Tab 1 (one) tablet (5 mg total) . aspirin 81 mg chewable tablet Chew and Swallow 1 (one) tablet (81 mg total) daily . atorvastatin (LIPITOR) 80 MG tablet Take 1 (one) tablet (80 mg total) by mouth daily . furosemide (LASIX) 20 MG tablet 1 (one) tablet (20 mg total) . Jardiance 10 mg Tab Take 1 (one) tablet (10 mg total) by mouth daily . levothyroxine (SYNTHROID, LEVOTHROID) 75 MCG tablet 1 (one) tablet (75 mcg total) . metoprolol succinate (TOPROL-XL) 25 MG 24 hr tablet Take 1 (one) tablet (25 mg total) by mouth every morning . pantoprazole (PROTONIX) 40 MG tablet 1 (one) tablet (40 mg total) . potassium chloride (KLOR-CON) 20 mEq packet 20 (twenty) mEq . No current facility-administered medications for this visit. 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 CVA (cerebral vascular accident) ([facility]) Dysphagia Fibromyalgia GERD (gastroesophageal reflux disease) History of arteriography History of cardioversion Hyperlipidemia Hypothyroidism Iron deficiency anemia Non Hodgkin's lymphoma (HCC) Osteoporosis Pharyngeal dysphagia Rheumatoid arthritis (HCC) Past Surgical History: She Past Surgical History: Procedure Laterality Date CORONARY ANGIOPLASTY WITH STENT PLACEMENT 2017 THROAT SURGERY 1974 Family History: Her Family History Problem Relation Age of Onset Hypothyroidism Mother Hypertension Mother Hypertension Father Heart disease Father Rheum arthritis Brother Rheum arthritis Daughter Social History: She Social History Socioeconomic History Marital status: Tobacco Use Smoking status: Every Day Current packs/day: 1.50 Average packs/day: 1.5 packs/day for 45.7 years (68.6 ttl pk-yrs) Types: Cigarettes Start date: 1978 Smokeless tobacco: Former Substance and Sexual Activity Alcohol use: Not Currently Drug use: Yes Types: Marijuana Comment: Edibles Sexual activity: Not Currently Social Determinants of Health Food Insecurity: No Food Insecurity (05/21/2023) Received from [facility] Hunger Screening Within the past 12 months we worried whether our food would run out before we got money to buy more.: Never True Within the past 12 months the food we bought just didn't last and we didn't have money to get more.: Never True ROS, SEE ATTESTED STAFF NOTE BP 125/83 (BP Location: Left arm, Patient Position: Sitting, BP Cuff Size: Adult) Pulse 66 Temp 97.1 degrees F (36.2 degrees C) (Temporal) Ht 5' 2.5 Wt 53.8 kg (118 lb 9.6 oz) SpO2 97% Comment: Room air BMI 21.35 kg/m General appearance: : Appears to be malnourished, emaciated but, alert, oriented in no acute distress. She has some difficulty with recollection of events Head: Normocephalic, without obvious abnormality, atraumatic, No alopecia, No parotid gland enlargement Eyes: conjunctivae/corneas clear. PERRL, EOM's intact. ,no uveitis Throat: Lips, mucosa, and tongue normal. Teeth and gums normal. No oral ulcers, Normal salivary pool Neck: supple, symmetrical, no adenopathy and no thyromegaly , no tenderness/mass/nodules, scar of previous surgery Back: no kyphosis present, no scoliosis present, range of motion normal , no paravertebral muscle tenderness Lungs: clear to auscultation bilaterally, no rales or crackles, Heart: regular rate and rhythm, S1, S2 normal, no murmur, click, rub or gallop Abdomen: soft, non-tender. Bowel sounds normal. No masses, no hepatosplenomegaly Extremities: No clubbing cyanosis , edema ,varicosities, stasis dermatitis Pulses: 2+ and symmetric Skin: Skin color, texture, turgor normal. No rashes ,petechiae, no sub-cutaneous nodules Lymph nodes: Cervical, supraclavicular, and axillary nodes normal. Neurologic: Alert and oriented X 3, normal strength and tone. Normal coordination and gait Musculoskeletal: Reveals normal range of motion in all the joints, especially normal range of motion at the shoulder and hips. Bilateral ulnar styloid enlargement with tenderness, bilateral second and third MCP swollen and tender, right second PIP joint significantly swollen and tender, 10 out of 10 MTP joints tender, bilateral second and third toes enlarged and tender. Bilateral knee crepitus but no effusion, no obvious joint deformities, no subluxation or ulnar deviation. Muscle strength is normal in all the muscle groups.scattered tender points of FMS present/ REVIEW OF DATA: External lab October 2019, vitamin D level normal at 41, sed rate normal at 19, CRP 0.8, serum kappa free high at 28 External lab [facility] December 10, 2018, sed rate of 54, intact PTH normal at 60, no M protein (urine, 8, 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, sed rate 41, uric acid 6.8, rheumatoid factor greater than 650, CCP antibody greater than 250, normal [place] level, negative [place] profile, negative dsDNA antibody, In June 2018, elevated C3 at 171, C4 normal at 27, intact PTH elevated slightly at 73, 25-hydroxy vitamin D level normal at 51, serum kappa protein slightly high at 21, normal CPK of 46, negative PM SCL 70 antibody, RNA polymerase 3 antibody negative, TH/T0 antibody negative External lab August 22/2024, CBC within normal complete metabolic profile normal except for albumin of 3.8, serum creatinine normal at 0.78 Impression IMPRESSION: PET scan September 14, 2023 HEAD/NECK: * No FDG avid neoplastic process. [...] MD on Sep 14 2023 2:48PM EST No results found for: TSH , T3FREE , Y0MNCGE No results found for: CALCIUM No results found for: ALT , AST , GGT No results found for: TEENA No results found for: WBC , HGB , HCT , MCV , PLT Chemistry No results found for: NA , K , CL , BUN , CREATININE , GLU No results found for: CALCIUM , ALKPHOS , AST , ALT , BILITOT Chest x-ray June 2018 does not show any mass IMPRESSION/PLAN 1. Seropositive rheumatoid arthritis of multiple joints (HCC), not fully controlled. Patient not on optimal treatment Will rechallenge with low-dose methotrexate 2.5 mg, 4 tablets once a week and see if it is tolerated. Patient has responded to medication in the past Folic acid 1 mg daily to counteract toxicity If methotrexate is not effective, consider addition of low-dose Plaquenil. Actemra is a consideration of biologic needed, also Rituxan is a consideration for treatment of rheumatoid arthritis in a patient with previous history of lymphoma 2. Fibromyalgia, symptomatic. Lipitor could also play a role gabapentin (Neurontin) 100 MG capsule in the evening. Patient aware of side effects of nausea dizziness excessive sedation 3. Abnormal weight loss, no obvious etiology, no evidence of any malignancy. No evidence of recurrence of lymphoma. PET scan is negative for any neoplastic process Patient to follow closely with oncology 4. History of non-Hodgkin's lymphoma, in remission Anti-TNF therapy relatively contraindicated, consider Rituxan if needed Actemra is a consideration Because autoimmune disease is associated with increased risk of atherosclerosis, recommend careful attention to blood pressure and lipid control. I recommend using the preventive guidelines established for people with diabetes. Return in about 8 weeks (around 01/29/2024) for Next scheduled follow up. Servando Mohan MD Rheumatology Note: This dictation was generated using [employer] voice recognition software. Please excuse any grammatical or spelling errors that may have occurred using the system. AUTHENTICATED BY SERVANDO MOHAN, ON 12/04/2023 16:17:02 ALLERGIES DATE TYPE / CODE NAME / CODE REACTION SEVERITY SOURCE 07/31/2024 Drug Allergy/[id number] 813537(SNOM ED CT) prochlorperazine/[id number](RXNORM) Neuro Symptoms Unknown [facility] 12/25/2002 DRUG INGREDI/419 424739(SNOM ED CT) PROCHLORPERAZINE GI Intol [facility] 12/25/2002 DRUG INGREDI~NON -CBORD/4195 36059(SNOME D CT) PROCHLORPERAZINE Other ( See Comments) [facility] ENCOUNTERS ADMIT/DISCHARGE ACCOUNT NUMBER ADMITTING ENCOUNTER CLASS LOCATION SOURCE 09/18/2024 [id number] [facility] 09/10/2024/ 025 [id number] Ed Lawton [facility] ng:[facility] 09/02/2024/ 025 [id number] Ambulatory Building:[facility] 07/17/2024/ 025 [id number] Ambulatory Building:[facility] _CV [facility] 07/09/2024/ 025 [id number] [facility] [facility] Ambulatory Building:[facility] 06/25/2024/ 025 [id number] [facility] Ambulatory Building:[facility] 06/06/2024/ 025 [id number] Ambulatory Buildin 4 [facility] 06/02/2024/ 025 [id number] Ambulatory Building:[facility] 02/27/2024/ 024 [id number] Ambulatory Building:PF _LAB [facility] 01/28/2024/ 024 [id number] Ambulatory Building:[facility] 01/01/2024/ 024 [id number] Ambulatory Building:[facility] 12/10/2023/ 024 [id number] Ambulatory Building:[facility] 12/04/2023/ 024 [id number] SERVANDO MOHAN Ambulatory Building:[facility] 10/23/2023 [id number] Ambulatory Building:[facility] PAYERS ENCOUNTER GUARANTOR PAYER SUBSCRIBER SOURCE 09/18/2024 Arian Dominique [place] [address]Kao: (HP) Primary Insurance:Self PayPolicy Number: Effective Date:2022-07-03 [facility]/10/2024 Arianmadison [place] [address]Xqv: (HP) Primary Insurance:[facility] PFFSPolicy Number: [id number] Date:4482-58-02CN [address] [place] [address]LO: Arian Melendez: [id number] [place] [address]Hyq: (HP) [facility] 09/10/2024 Secondary Insurance:Self PayPolicy Number: Effective Date:2024-09-08 [facility] 09/02/2024 ARIAN MELENDEZ: [place], [place] [address]Gvk: ~(18 [phone] (HP) Primary Insurance:[facility] MANAGED MEDICAREPolicy Number: [id number] Date:2889-90-30XL [address] [place] [address]DN: ARIAN MELENDEZ: [id number] Nik[place]il [place], [place] [address]Woa: (HP) [facility] 09/02/2024 Secondary Insurance:[facility] MANAGED MEDICAREPolicy Number: [id number] Date:3855-26-50CC [address] [place] [address], [place] [address]QV: ARIAN MIREYA: [id number] Nikhil [place], [place] [address]Ihv: (HP) [facility] 07/17/2024 ARIAN Fox TEMOConcha: [place] [id number]: (HP) [facility]: [id number] Date:2020-04-19 ARAIN Dominique MELENDEZ: [id number] [place] [address] [facility] 07/09/2024 ARIAN MIREYA: Nikhil [place], [place] [address]Rkk: ~(65 9 (HP) Primary Insurance:[employer] MANAGED MEDICAREPolicy Number: [id number] Date:3824-52-06[address], [place] [address]WS: ARIAN MIREYA: [id number] [address], [place] [address]Atk: (HP) [facility] 06/25/2024 ARIAN MIREYA: Nikhil [place], [place] [address]Ukb: ~([phone] (HP) Primary Insurance:[facility] MEDICAREPolicy Number: [id number] Date:6535-79-69ZS [address], [place] [address]RB: ARIAN MIREYA: [id number] [address], [place] [address]Ohn: (HP) [facility] 06/06/2024 ARIAN MELENDEZ: Nikhil [place], [place] [address]Yyp: (HP) Primary Insurance:[employer] MEDICARE ADVANTAGEPolicy Number: [id number] Date:2023-09-17 ARIAN PLASCENCIAB: [id number] [place] [id number]: (HP) [facility] 06/06/2024 Secondary Insura nce:[place] MEDICAIDPolicy Number: [id number] Date:2020-04-19 ARIAN MELENDEZ: [id number] [place] [address] [facility] 06/02/2024 ARIAN MELENDEZ: Nikhil [place], [place] [address]Jvd: ~(51 9 (HP) Primary Insurance:[facility] MEDICAREPolicy Number: [id number] Date:7583-14-57Z[address] [address]MZ: ARIAN MIREYA: [id number] Nikhil [place], [place] [address]Eem: (HP) [facility] 02/27/2024 ARIAN MELENDEZ: [place] [address]Whb: (HP) Primary Insurance:[employer] MEDICARE ADVANTAGEPolicy Number: [id number] Date:2023-09-17 ARIAN MELENDEZ: [id number] [place], [place] [address]Tbs: (HP) [facility] 02/27/2024 [place] Insura nce:[place] MED[place]Policy Number: [id number] Date:2020-04-19 ARIAN MELENDEZ: [id number] [place], [place] [address]Wty: (HP) [facility] 01/28/2024 ARIAN MIREYA: [address] [place] [place], [place] [address]Jfw: ~(41 [phone] (HP) Primary Insurance:[facility] MEDICAREPolicy Number: [id number] Date:1894-72-62U[address], [place] [address]LC: ARIAN PLASCENCIAB: [id number] [address]h[place], [place] [address]Obi: (HP) [facility] 01/01/2024 ARIAN MELENDEZ: Nik[place], [place] [address]Ufl: (HP) Primary Insurance:[employer] MEDICARE ADVANTAGEPolicy Number: [id number] Date:2023-09-17 ARIAN MELENDEZ: [id number] [place] [address] [facility] 12/10/2023 ARIAN MELENDEZ: [address] [place], [place] [address]Xyh: (HP) Primary Insurance:[employer] MEDICARE ADVANTAGEPolicy Number: [id number] Date:2023-09-17 ARIAN MELENDEZ: [id number] [place] [address] [facility] 12/04/2023 ARIAN PLASCENCIAB: [address] [place] [place] [address]Xfk: ~(41 [phone] (HP) Primary Insurance:[employer] MANAGED MEDICAREPolicy Number: [id number] Date:7049-19-26[address], [place] [address]FH: ARIAN MELENDEZ: [id number] Nikhil [place], [place] [address]Xvh: () [facility]
--- OUTSIDE RECORDS SUMMARY | 2024-09-23 11:59 | XMS_ITS | Encounter Summary ---
Author Organization [facility] Address [address] [place] [address] Phone Care Team Providers Care Technology Lead Name Role Phone Olegario Singh DO Primary Care Provider Encounter Details Date Type Department Care Team (Late st Contact Info) Description 07/17/2019 Orders Only [facility] [address] [place] [address] Conversion, Onbase Social History Tobacco Use Types Packs/Day Years Used Date Smoking Tobacco: Never Assessed Comments Unknown Sex and Gender Information Value Date Recorded Sex Assigned at Not on file Legal Sex Female 4:11 PM EST Gender Identity Not on file Sexual Orientation Not on file documented as of this encounter Plan of Treatment Scheduled Orders Name Type Priority Associated Diagnoses Orde r Schedule OUTSIDE LAB SCAN Lab Ordered: 07/17/2019 documented as of this encounter Visit Diagnoses Not on filedocumented in this encounter Care Teams Technology Lead Relationship Specialty Start Date End Date Olegario Singh DO [address] [facility] [place] [address] [place] [address] PCP - General 02/21/19 documented as of this encounter
--- OUTSIDE RECORDS SUMMARY | 2024-09-23 11:59 | XMS_ITS | Encounter Summary ---
Author Organization [facility] Address [address] [place] [address] Phone Care Team Providers Care Medical Assistant Dermatology Name Role Phone Olegario Singh DO Primary Care Provider Encounter Details Date Type Department Care Team (Late st Contact Info) Description 01/13/2020 Orders Only [facility] [address] [place] [address] Conversion, Onbase Social History Tobacco Use Types [...] r Schedule OUTSIDE LAB SCAN Lab Ordered: 01/13/2020 documented as of this encounter Visit Diagnoses Not on filedocumented in this encounter Care Teams Medical Assistant Dermatology Relationship Specialty Start Date End Date Olegario Singh DO [address] [facility] [address] [place] [address] PCP - General 02/21/19 documented as of this encounter
--- OUTSIDE RECORDS SUMMARY | 2024-09-23 11:59 | XMS_ITS | Encounter Summary ---
Author Organization [facility] Address [address] [place] [address] Phone Care Team Providers Care Management And Budget Analyst Name Role Phone Olegario Singh DO Primary Care Provider Encounter Details Date Type Department Care Team (Late st Contact Info) Description 06/13/2019 Orders Only [facility] [address] [place] [address] Conversion, Onbase Social History Tobacco Use Types [...] r Schedule OUTSIDE LAB SCAN Lab Ordered: 06/13/2019 documented as of this encounter Visit Diagnoses Not on filedocumented in this encounter Care Teams Management And Budget Analyst Relationship Specialty Start Date End Date Olegario Singh DO [address] [facility] [address] [place] [address] PCP - General 02/21/19 documented as of this encounter
--- OUTSIDE RECORDS SUMMARY | 2024-09-23 11:59 | XMS_ITS | Encounter Summary ---
Author Organization [facility] Address [address] [place] [address] Phone Care Team Providers Care Casting Room Helper Name Role Phone Olegario Singh DO Primary Care Provider Encounter Details Date Type Department Care Team (Late st Contact Info) Description 04/22/2019 Orders Only [facility] [address] [place] [address] Conversion, Onbase Social History Tobacco Use Types [...] r Schedule OUTSIDE LAB SCAN Lab Ordered: 04/22/2019 OUTSIDE LAB SCAN Lab Ordered: 04/22/2019 OUTSIDE LAB SCAN Lab Ordered: 04/22/2019 documented as of this encounter Visit Diagnoses Not on filedocumented in this encounter Care Teams Casting Room Helper Relationship Specialty Start Date End Date Olegario Singh DO [address] [facility] [address] [address] PCP - General 02/21/19 documented as of this encounter
--- OUTSIDE RECORDS SUMMARY | 2024-09-23 11:59 | XMS_ITS | Encounter Summary ---
Author Organization [facility] Address [address] [place] [address] Phone Care Team Providers Care Audit Machine Operator Name Role Phone Olegario Singh DO Primary Care Provider Encounter Details Date Type Department Care Team (Late st Contact Info) Description 02/20/2019 Orders Only [facility] [address] [place] [address] Conversion, Onbase Social History Tobacco Use Types [...] r Schedule OUTSIDE LAB SCAN Lab Ordered: 02/20/2019 documented as of this encounter Visit Diagnoses Not on filedocumented in this encounter Care Teams Audit Machine Operator Relationship Specialty Start Date End Date Olegario Singh DO [address] [facility] [address] [place] [address] PCP - General 02/21/19 documented as of this encounter
--- OUTSIDE RECORDS SUMMARY | 2024-09-23 11:59 | XMS_ITS | Encounter Summary ---
Author Organization [facility] Address [address] [place] [address] Phone Care Team Providers Care It Software Developer Name Role Phone Olegario Singh DO Primary Care Provider Encounter Details Date Type Department Care Team (Late st Contact Info) Description 07/29/2019 Orders Only [facility] [address] [place] [address] Conversion, Onbase Social History Tobacco Use Types [...] r Schedule OUTSIDE LAB SCAN Lab Ordered: 07/29/2019 documented as of this encounter Visit Diagnoses Not on filedocumented in this encounter Care Teams It Software Developer Relationship Specialty Start Date End Date Olegario Singh DO [address] [facility] - [facility] Care [facility] [address] [place] [address] PCP - General 02/21/19 documented as of this encounter
--- OUTSIDE RECORDS SUMMARY | 2024-09-23 11:59 | XMS_ITS | Encounter Summary ---
Author Organization [facility] Address [address] [place] [address] Phone Care Team Providers Care Car Wrecker Name Role Phone Olegario Singh DO Primary Care Provider Encounter Details Date Type Department Care Team (Late st Contact Info) Description 05/27/2019 Orders Only [facility] LEGACY [address] [place] [address] Conversion, Onbase Social History Tobacco Use Types [...] r Schedule OUTSIDE LAB SCAN Lab Ordered: 05/27/2019 documented as of this encounter Visit Diagnoses Not on filedocumented in this encounter Care Teams Car Wrecker Relationship Specialty Start Date End Date Olegario Singh DO [address] [facility] - [facility] Care [facility] [address] [place] [address] PCP - General 02/21/19 documented as of this encounter
--- OUTSIDE RECORDS SUMMARY | 2024-09-23 11:59 | XMS_ITS | Encounter Summary ---
Author Organization [facility] Address [address] [place] [address] Phone Care Team Providers Care Stacking Machine Operator Name Role Phone Olegario Singh DO Primary Care Provider Encounter Details Date Type Department Care Team (Late st Contact Info) Description 05/05/2021 Orders Only [facility] LEGACY [address] [place] [address] Conversion, Onbase Social History Tobacco Use Types [...] r Schedule OUTSIDE LAB SCAN Lab Ordered: 05/05/2021 documented as of this encounter Visit Diagnoses Not on filedocumented in this encounter Care Teams Stacking Machine Operator Relationship Specialty Start Date End Date Olegario Singh DO [address] [facility] - Urgent Care [facility] [address] [place] [address] PCP - General 02/21/19 documented as of this encounter
--- OUTSIDE RECORDS SUMMARY | 2024-09-23 11:59 | XMS_ITS | Clinical Summary ---
Author Organization [facility] Address [address] [place] [address] Care Team Providers Care Bartender Name Role Phone Olegario Singh MD Primary Care Provider [phone] Allergies Active Allergy Reactions Criticality Noted Date Comments Prochlorperazine GI intolerance 12/25/2002 Other Reaction(s): Neuro Symptoms, Other (See Comments) Neurological sx compazine compazine Neurological sx compazine compazine Medications albuterol HFA 90 mcg/act inhaler Inhale 2 puffs 05/10/2023 Active amitriptyline (Elavil) 25 MG tablet .COMPLEX 05/10/2023 Active apixaban (Eliquis) 5 MG tablet 5 mg 05/10/2023 Active aspirin 81 MG chewable tablet Chew 81 mg in the morning. Active atorvastatin (Lipitor) 80 MG tablet Take 80 mg by mouth in the morning. 09/05/2023 Active empagliflozin (Jardiance) 10 MG Take 10 mg by mouth in the morning. 10/18/2023 Active Jardiance 10 MG Take 1 tablet by mouth in the morning. 10/19/2023 Active folic acid (Folvite) 1 MG tablet Take 1 mg by mouth in the morning. 12/04/2023 Active furosemide (Lasix) 20 MG tablet 20 mg 05/10/2023 Active gabapentin (Neurontin) 100 MG capsule Take 100 mg by mouth at bedtime 12/04/2023 Active levothyroxine (Synthroid, Levoxyl) 75 MCG tablet 75 mcg 09/05/2023 Active Active Problems Problem Noted Date Diagnosed Date Metabolic encephalopathy 12/10/2023 Confusion 12/10/2023 Tremor 12/10/2023 Stroke 12/10/2023 General weakness 12/10/2023 Acute confusion 12/10/2023 Family History Medical History Relation Name Comments Hyperlipidemia Other Hypertension Other Relation Name Status Comments Other Social History Tobacco Use Types Packs/Day Years Used Date Smoking Tobacco: Every Day Cigarettes Tobacco Cessation:Ready to Q uit: Not Asked; Counseling Given: Not Answered Alcohol Use Standard Drinks/Week Comments Never 0 (1 standard drink = 0.6 oz pur e alcohol) caffeine Comments Unknown Sex and Gender Information Value Date Recorded Sex Assigned at Female 12/06/2023 12:45 PM EDT Legal Sex Female 8:32 PM EDT Gender Identity Female 12/06/2023 12:45 PM EDT Sexual Orientation Not on file Plan of Treatment Health Maintenance Due Date Last Done Comments CT Colonography 1959 Colonoscopy 1959 Colorectal Cancer Screening 1959 FIT-DNA 1959 FIT 1959 FOBT 1959 Sigmoidoscopy 1959 Pap Smear 02/07/1980 Cervical Cancer Screening 1989 HPV/Cotest 1989 Mammogram 1999 Pneumococcal Vaccine: 65+ Years (2 of 2 - PPSV23) 12/1701/02/2019 Influenza Vaccine (#1) 2024 Insurance [employer] MED[employer]ARE ADVANTAGE Care Teams Bartender Relationship Specialty Start Date End Date Olegario Singh MD PCP - General Family Medicine 12/10/23
--- OUTSIDE RECORDS SUMMARY | 2024-09-23 11:59 | XMS_ITS | Encounter Summary ---
Author Organization [facility] Address [address] [place] [address] Phone Care Team Providers Care Sales Order Administrator Name Role Phone Olegario Singh DO Primary Care Provider Encounter Details Date Type Department Care Team (Late st Contact Info) Description 06/08/2019 Orders Only [facility] LEGACY [address] [place] [address] Conversion, Onbase Social History Tobacco Use Types [...] r Schedule OUTSIDE LAB SCAN Lab Ordered: 06/08/2019 documented as of this encounter Visit Diagnoses Not on filedocumented in this encounter Care Teams Sales Order Administrator Relationship Specialty Start Date End Date Olegario Singh DO [address] [facility] - Urgent Care [email or web address] [address] [place] [address] PCP - General 02/21/19 documented as of this encounter
--- OUTSIDE RECORDS SUMMARY | 2024-09-23 11:59 | XMS_ITS | Encounter Summary ---
Author Organization [facility] Address [address] [place] [address] Phone Care Team Providers Care Photographer Name Role Phone Olegario Singh DO Primary Care Provider Encounter Details Date Type Department Care Team (Late st Contact Info) Description 05/21/2019 Orders Only [facility] LEGACY [address] [place] [address] Conversion, Onbase Social History Tobacco Use Types [...] r Schedule OUTSIDE LAB SCAN Lab Ordered: 05/21/2019 documented as of this encounter Visit Diagnoses Not on filedocumented in this encounter Care Teams Photographer Relationship Specialty Start Date End Date Olegario Singh DO [address] [facility] - Urgent Care [facility] [address] [place] [address] PCP - General 02/21/19 documented as of this encounter
--- OUTSIDE RECORDS SUMMARY | 2024-09-23 11:59 | XMS_ITS | Encounter Summary ---
Author Organization [facility] Address [address] [place] [address] Phone Care Team Providers Care Medical Director Occupational Health Name Role Phone Olegario Singh DO Primary Care Provider Encounter Details Date Type Department Care Team (Late st Contact Info) Description 07/22/2020 Orders Only [facility] LEGACY [address] [place] [address] Conversion, Onbase Social History Tobacco Use Types [...] r Schedule OUTSIDE LAB SCAN Lab Ordered: 07/22/2020 documented as of this encounter Visit Diagnoses Not on filedocumented in this encounter Care Teams Medical Director Occupational Health Relationship Specialty Start Date End Date Olegario Singh DO [address] [facility] - Urgent Care [facility] [address] [place] [address] PCP - General 02/21/19 documented as of this encounter
--- OUTSIDE RECORDS SUMMARY | 2024-09-23 11:59 | XMS_ITS | Encounter Summary ---
Author Organization [facility] Address [address] [place] [address] Phone Care Team Providers Care Cut And Print Machine Operator Name Role Phone Olegario Singh DO Primary Care Provider Encounter Details Date Type Department Care Team (Late st Contact Info) Description 08/05/2020 Orders Only [facility] LEGACY [address] [place] [address] Conversion, Onbase Social History Tobacco Use Types [...] r Schedule OUTSIDE LAB SCAN Lab Ordered: 08/05/2020 documented as of this encounter Visit Diagnoses Not on filedocumented in this encounter Care Teams Cut And Print Machine Operator Relationship Specialty Start Date End Date Olegario Singh DO [address] [facility] - Urgent Care [facility] [address] [place] [address] PCP - General 02/21/19 documented as of this encounter
--- OUTSIDE RECORDS SUMMARY | 2024-09-23 11:59 | XMS_ITS | Encounter Summary ---
Author Organization [facility] Address [address] [place] [address] Phone Care Team Providers Care Electric Organ Inspector And Repairer Name Role Phone Olegario Singh DO Primary Care Provider Encounter Details Date Type Department Care Team (Late st Contact Info) Description 03/23/2020 Orders Only [facility] LEGACY [address] [place] [address] Conversion, Onbase Social History Tobacco Use Types [...] r Schedule OUTSIDE LAB SCAN Lab Ordered: 03/23/2020 documented as of this encounter Visit Diagnoses Not on filedocumented in this encounter Care Teams Electric Organ Inspector And Repairer Relationship Specialty Start Date End Date Olegario Singh DO [address] [facility] - Urgent Care [facility] [address] [place] [address] PCP - General 02/21/19 documented as of this encounter
--- OUTSIDE RECORDS SUMMARY | 2024-09-23 11:59 | XMS_ITS | Encounter Summary ---
Author Organization [facility] Address [address] [place] [address] Phone Care Team Providers Care Core Dropper Name Role Phone Olegario Singh DO Primary Care Provider Encounter Details Date Type Department Care Team (Late st Contact Info) Description 05/18/2020 Orders Only [facility] LEGACY [address] [place] [address] Conversion, Onbase Social History Tobacco Use Types [...] r Schedule OUTSIDE LAB SCAN Lab Ordered: 05/18/2020 documented as of this encounter Visit Diagnoses Not on filedocumented in this encounter Care Teams Core Dropper Relationship Specialty Start Date End Date Olegario Singh DO [address] [facility] - Urgent Care [facility] [address] [place] [address] PCP - General 02/21/19 documented as of this encounter
--- OUTSIDE RECORDS SUMMARY | 2024-09-23 11:59 | XMS_ITS | Encounter Summary ---
Author Organization [facility] Address [address] [place] [address] Phone Care Team Providers Care Senior Reservoir Engineer Name Role Phone Olegario Singh DO Primary Care Provider Encounter Details Date Type Department Care Team (Late st Contact Info) Description 02/24/2020 Orders Only [facility] LEGACY [address] [place] [address] Conversion, Onbase Social History Tobacco Use Types [...] r Schedule OUTSIDE LAB SCAN Lab Ordered: 02/24/2020 documented as of this encounter Visit Diagnoses Not on filedocumented in this encounter Care Teams Senior Reservoir Engineer Relationship Specialty Start Date End Date Olegario Singh DO [address] [facility] - Urgent Care [facility] [address] [place] [address] PCP - General 02/21/19 documented as of this encounter
--- OUTSIDE RECORDS SUMMARY | 2024-09-23 11:59 | XMS_ITS | Encounter Summary ---
Author Organization [facility] Address [address] [place] [address] Phone Care Team Providers Care Building Pressure Washer Name Role Phone Olegario Singh DO Primary Care Provider Encounter Details Date Type Department Care Team (Late st Contact Info) Description 06/03/2019 Orders Only [facility] LEGACY [address] [place] [address] Conversion, Onbase Social History Tobacco Use Types [...] r Schedule OUTSIDE LAB SCAN Lab Ordered: 06/03/2019 documented as of this encounter Visit Diagnoses Not on filedocumented in this encounter Care Teams Building Pressure Washer Relationship Specialty Start Date End Date Olegario Singh DO [address] [facility] - Urgent Care [facility] [address] [place] [address] PCP - General 02/21/19 documented as of this encounter
--- OUTSIDE RECORDS SUMMARY | 2024-09-23 11:59 | XMS_ITS | Encounter Summary ---
Author Organization [facility] Address [address] [place] [address] Phone Care Team Providers Care Supervisor Slashing Department Name Role Phone Olegario Singh DO Primary Care Provider Encounter Details Date Type Department Care Team (Late st Contact Info) Description 08/12/2020 Orders Only [facility] LEGACY [address] [place] [address] Conversion, Onbase Social History Tobacco Use Types [...] r Schedule OUTSIDE LAB SCAN Lab Ordered: 08/12/2020 documented as of this encounter Visit Diagnoses Not on filedocumented in this encounter Care Teams Supervisor Slashing Department Relationship Specialty Start Date End Date Olegario Singh DO [address] [facility] - Urgent Care [facility] [address] [place] [address] PCP - General 02/21/19 documented as of this encounter
--- OUTSIDE RECORDS SUMMARY | 2024-09-23 11:59 | XMS_ITS | Encounter Summary ---
Author Organization [facility] Address [address] [place] [address] Phone Care Team Providers Care Medical Review Coordinator Name Role Phone Olegario Singh DO Primary Care Provider Encounter Details Date Type Department Care Team (Late st Contact Info) Description 01/01/2019 Orders Only [facility] LEGACY [address] [place] [address] Conversion, Onbase Social History Tobacco Use Types [...] r Schedule OUTSIDE LAB SCAN Lab Ordered: 01/01/2019 documented as of this encounter Visit Diagnoses Not on filedocumented in this encounter Care Teams Medical Review Coordinator Relationship Specialty Start Date End Date Olegario Singh DO [address] [facility] - Urgent Care [facility] [address] [place] [address] PCP - General 02/21/19 documented as of this encounter
--- OUTSIDE RECORDS SUMMARY | 2024-09-23 11:59 | XMS_ITS | Encounter Summary ---
Author Organization [facility] Address [address] [place] [address] Phone Care Team Providers Care Head Buyer Tobacco Name Role Phone Olegario Singh DO Primary Care Provider Encounter Details Date Type Department Care Team (Late st Contact Info) Description 06/11/2019 Orders Only [email or web address] LEGACY [address] [place] [address] Conversion, Onbase Social History Tobacco Use Types [...] r Schedule OUTSIDE LAB SCAN Lab Ordered: 06/11/2019 documented as of this encounter Visit Diagnoses Not on filedocumented in this encounter Care Teams Head Buyer Tobacco Relationship Specialty Start Date End Date Olegario Singh DO [address] [facility] - Urgent Care [facility] [address] [place] [address] PCP - General 02/21/19 documented as of this encounter
--- OUTSIDE RECORDS SUMMARY | 2024-09-23 11:59 | XMS_ITS | Encounter Summary ---
Author Organization [facility] Address [address] [place] [address] Phone Care Team Providers Care Heating Equipment Repairer Name Role Phone Olegario Singh DO Primary Care Provider Encounter Details Date Type Department Care Team (Late st Contact Info) Description 10/09/2019 Orders Only [facility] LEGACY [address] [place] [address] Conversion, Onbase Social History Tobacco Use Types [...] r Schedule OUTSIDE LAB SCAN Lab Ordered: 10/09/2019 documented as of this encounter Visit Diagnoses Not on filedocumented in this encounter Care Teams Heating Equipment Repairer Relationship Specialty Start Date End Date Olegario Singh DO [address] [facility] - Ur[facility] Care [facility] [address] [place] [address] PCP - General 02/21/19 documented as of this encounter
--- OUTSIDE RECORDS SUMMARY | 2024-09-23 11:59 | XMS_ITS | Encounter Summary ---
Author Organization [facility] Address [address] [place] [address] Phone Care Team Providers Care House Wirer Helper Name Role Phone Olegario Singh DO Primary Care Provider Encounter Details Date Type Department Care Team (Late st Contact Info) Description 07/10/2019 Orders Only [facility] LEGACY [address] [place] [address] Conversion, Onbase Social History Tobacco Use Types [...] r Schedule OUTSIDE LAB SCAN Lab Ordered: 07/10/2019 documented as of this encounter Visit Diagnoses Not on filedocumented in this encounter Care Teams House Wirer Helper Relationship Specialty Start Date End Date Olegario Singh DO [address] [facility] - Urgent Care [facility] [address] [place] [address] PCP - General 02/21/19 documented as of this encounter
--- OUTSIDE RECORDS SUMMARY | 2024-09-23 11:59 | XMS_ITS | Encounter Summary ---
Author Organization [facility] Address [address] [place] [address] Phone Care Team Providers Care Scheduling Analyst Name Role Phone Olegario Singh DO Primary Care Provider Encounter Details Date Type Department Care Team (Late st Contact Info) Description 06/26/2019 Orders Only [facility] LEGACY [address] [place] [address] Conversion, Onbase Social History Tobacco Use Types [...] r Schedule OUTSIDE LAB SCAN Lab Ordered: 06/26/2019 documented as of this encounter Visit Diagnoses Not on filedocumented in this encounter Care Teams Scheduling Analyst Relationship Specialty Start Date End Date Olegario Singh DO [address] [facility] - Urgent Care [facility] [address] [place] [address] PCP - General 02/21/19 documented as of this encounter
--- OUTSIDE RECORDS SUMMARY | 2024-09-23 11:59 | XMS_ITS | Encounter Summary ---
Author Organization [facility] Address [address] [place] [address] Phone Care Team Providers Care V Belt Mold Assembler And Curer Name Role Phone Olegario Singh DO Primary Care Provider Encounter Details Date Type Department Care Team (Late st Contact Info) Description 05/07/2019 Orders Only [facility] LEGACY [address] [place] [address] Conversion, Onbase Social History Tobacco Use Types [...] r Schedule OUTSIDE LAB SCAN Lab Ordered: 05/07/2019 OUTSIDE LAB SCAN Lab Ordered: 05/07/2019 documented as of this encounter Visit Diagnoses Not on filedocumented in this encounter Care Teams V Belt Mold Assembler And Curer Relationship Specialty Start Date End Date Olegario Singh DO [address] [facility] - Ur[facility] [address] [place] [address] PCP - General 02/21/19 documented as of this encounter
--- OUTSIDE RECORDS SUMMARY | 2024-09-23 11:59 | XMS_ITS | Encounter Summary ---
Author Organization [facility] Address [address] [place] [address] Phone Care Team Providers Care Vehicle Detailer Name Role Phone Olegario Singh DO Primary Care Provider Encounter Details Date Type Department Care Team (Late st Contact Info) Description 05/16/2019 Orders Only [facility] LEGACY [address] [place] [address] Conversion, Onbase Social History Tobacco Use Types [...] r Schedule OUTSIDE LAB SCAN Lab Ordered: 05/16/2019 documented as of this encounter Visit Diagnoses Not on filedocumented in this encounter Care Teams Vehicle Detailer Relationship Specialty Start Date End Date Olegario Singh DO [address] [facility] - Urgent Care [facility] [address] [place] [address] PCP - General 02/21/19 documented as of this encounter
--- OUTSIDE RECORDS SUMMARY | 2024-09-23 11:59 | XMS_ITS | Encounter Summary ---
Author Organization [facility] Address [address] [place] [address] Phone Care Team Providers Care Learning Services Coordinator Name Role Phone Olegario Singh DO Primary Care Provider Encounter Details Date Type Department Care Team (Late st Contact Info) Description 11/10/2020 Orders Only [facility] LEGACY [address] [place] [address] Conversion, Onbase Social History Tobacco Use Types [...] r Schedule OUTSIDE LAB SCAN Lab Ordered: 11/10/2020 documented as of this encounter Visit Diagnoses Not on filedocumented in this encounter Care Teams Learning Services Coordinator Relationship Specialty Start Date End Date Olegario Singh DO [address] [facility] - Urgent Care [facility] [address] [place] [address] PCP - General 02/21/19 documented as of this encounter
--- OUTSIDE RECORDS SUMMARY | 2024-09-23 11:59 | XMS_ITS | Clinical Summary ---
Author Organization [facility] Address [address] [place] [address] Care Team Providers Care Outside Sales Representative Insurance Name Role Phone Olegario Singh DO Primary Care Provider [phone] Allergies Active Allergy Reactions Criticality Noted Date Comments Prochlorperazine GI Intolerance,Other (See Comments) 12/25/2002 Neurological sx compazine compazine Medications albuterol 90 mcg/actuation inhaler Inhale 2 (two) puffs . 4 Active ALPRAZolam (XANAX) 1 MG tablet 1 (one) tablet (1 mg total) . 0 Active amitriptyline (ELAVIL) 25 MG tablet .COMPLEX 4 Active apixaban 5 mg Tab 1 (one) tablet (5 mg total) . 4 Active aspirin 81 mg chewable tablet Chew and Swallow 1 (one) tablet (81 mg total) daily . Active atorvastatin (LIPITOR) 80 MG tablet Take 1 (one) tablet (80 mg total) by mouth daily . 4 Active Jardiance 10 mg Tab Take 1 (one) tablet (10 mg total) by mouth daily . 4 Active furosemide (LASIX) 20 MG tablet 1 (one) tablet (20 mg total) . 4 Active levothyroxine (SYNTHROID, LEVOTHROID) 75 MCG tablet 1 (one) tablet (75 mcg total) . 4 Active metoprolol succinate (TOPROL-XL) 25 MG 24 hr tablet Take 1 (one) tablet (25 mg total) by mouth every morning . 3 Active pantoprazole (PROTONIX) 40 MG tablet 1 (one) tablet (40 mg total) . 4 Active potassium chloride (KLOR-CON) 20 mEq packet 20 (twenty) mEq . 4 Active memantine (NAMENDA) 5 MG tablet .COMPLEX 4 Active gabapentin (NEURONTIN) 300 MG capsuleIndicati ons:Fibromyalgi a Take 1 (one) capsule (300 mg total) by mouth at bedtime . 90 capsule 1 5 Active methoTREXate (TREXALL) 2.5 MG tabletIndicatio ns:Seropositive rheumatoid arthritis of multiple joints (HCC) Take 7 (seven) tablets (17.5 mg total) by mouth once a week . 84 tablet 1 5 Active folic acid (FOLVITE) 1 MG tabletIndicatio ns:Encounter for long-term (current) use of high-risk medication Take 1 (one) tablet (1 mg total) by mouth daily Do not take on the day of methotrexate . 90 tablet 1 5 Active Active Problems Problem Noted Date Diagnosed Date Rheumatoid arthritis 12/04/2023 Fibromyalgia 12/04/2023 Abnormal weight loss 12/04/2023 History of non-Hodgkin's lymphoma 12/04/2023 Encounters Date Type Department Care Team Description 09/02/2024 2:45 PM EDT Office Visit [facility] [address] [place] [address] [place] [address] Servando Umana MD Seropositive rheumatoid arthritis of multiple joints (HCC) (Primary Dx); Fibromyalgia; Abnormal weight loss; History of non-Hodgkin's lymphoma; Encounter for long-term (current) use of high-risk medication 09/02/2024 Travel 07/09/2024 10:30 AM EDT Infusion/Injecti on [facility] Infusion [address] [place] [id number] Servando Umana MD Rheumatoid arthritis, involving unspecified site, unspecified whether rheumatoid factor present (HCC) (Primary Dx) Discharge Disposition: Home 07/09/2024 Travel 06/25/2024 11:00 AM EDT Infusion/Injecti on [facility] Infusion [address] [place] [phone] Servando Umana MD Rheumatoid arthritis, involving unspecified site, unspecified whether rheumatoid factor present (HCC) (Primary Dx) Discharge Disposition: Home 06/24/2024 Travel from Last 3 Months Immunizations Immunization Administration Dates Next Due Pneumococcal Conjugate 13-Valent (Prevnar 13) Respiratory Syncytial Virus Vaccine, Adjuvanted (Arexvy/RSV), Historical 01/04/2024 Tdap 01/04/2024 Family History Medical History Relation Comments Arthritis Brother 1 Ra Rheum arthritis Brother 1 Hyperlipidemia Brother 2 Passed 2023 Rheum arthritis Daughter On humira Heart disease Father at 55 throm bosis in brain stem Hypertension Father Arthritis Mother Regular arthriti s Hypertension Mother Hypothyroidism Mother Relation Status Comments Brother 1 Brother 2 Alive Daughter Father Mother Social History Tobacco Use Types Packs/Day Years Used Date Smoking Tobacco: Every Day Cigarettes 1.5 46.5 Started: 1978 Smokeless Tobacco: Former Tobacco Cessation:Ready to Q uit: Not Asked; Counseling Given: Not Answered Alcohol Use Standard Drinks/Week Comments Not Currently 0 (1 standard drink = 0.6 oz pur e alcohol) Comments Unknown Sex and Gender Information Value Date Recorded Sex Assigned at Not on file Legal Sex Female 10:31 AM EDT Gender Identity Not on file Sexual Orientation Not on file Last Filed Vital Signs Vital Sign Reading Time Taken Comments Blood Pressure 105/64 09/02/2024 3:05 PM EDT Pulse 64 09/02/2024 3:05 PM EDT Temperature 36.7 C (98 F) 09/02/2024 3:05 PM EDT Respiratory Rate 16 07/09/2024 10:36 AM EDT Oxygen Saturation 93% 09/02/2024 3:05 PM EDT Room air Inhaled Oxygen Concentration - - Weight 56.1 kg (123 lb 9.6 oz) 09/02/2024 3:05 P M EDT Height 158.8 cm (5' 2.5 ) 09/02/2024 3:05 PM EDT Body Mass Index 22.25 09/02/2024 3:05 PM EDT Plan of Treatment Upcoming Encounters Date Type Department Care Team (Late st Contact Info) Description 11/20/2024 2:15 PM EDT Office Visit [facility] [address] [place], [place] [address] [address] Servando Umana MD [address] [place] [address] 12/24/2024 10:00 AM EDT Infusion/Inject nona [place] [facility] Infusion [address] [place] [phone] Discharge Disposition: Home Health Maintenance Due Date Last Done Comments CT Colonography 1959 Colonoscopy 1959 Colorectal Cancer Screening/Monitoring 1959 Dexa Scan 1959 Fecal DNA 1959 Fecal occult blood test (FOBT,FIT) [address] Low-dose [address] Lung Cancer Screen 1959 Medicare Wellness Visit 1962 Depression Screening/Follow- Up (PHQ-2/9) 1971 HIV Screening 1974 Zoster Vaccines (1 of 2) 1978 Pap Smear 02/07/1980 Cervical Cancer Screening 1989 HPV/Cotest 1989 Mammogram 1999 Flexible sigmoidoscopy 2009 Pneumococcal Vaccine: Age 50 + (2 of 2 - PPSV23, PCV20, or PCV21) 02/27/2019 01/02/2019 COVID-19 Vaccine ( - season) 2023 02/25/2021, 06/21/2020, 05/29/2020 Falls Risk Assessment 02/07/2024 Influenza Vaccine (#1) 2024 Tetanus: Every 10yrs 01/03/2034 01/04/2024 Respiratory Syncytial Virus Immunization: Risk, 60-74 Risk, or 75+ Completed 01/04/2024 Hepatitis C Screening Completed 01/28/2024 Procedures Procedure Name Priority Date/Time Associated Diagnosis Comments CBC AND DIFFERENTIAL Routine 09/02/2024 3:32 PM EDT Encounter for long-term (current) use of high-risk medication SEDIMENTATION RATE Routine 09/02/2024 3: 32 PM EDT Seropositive rheumatoid arthritis of multiple joints (HCC) ALT Routine 09/02/2024 3:32 PM EDT Encounter for long-term (current) use of high-risk medication AST Routine 09/02/2024 3:32 PM EDT Encounter for long-term (current) use of high-risk medication CREATININE, SERUM Routine 09/02/2024 3:3 2 PM EDT Encounter for long-term (current) use of high-risk medication HEPATITIS C ANTIBODY WITH REFLEX TO HCV VIRUS QUANTITIATION Routine 01/28/2024 3:38 PM EST from Last 3 Months or Most Recently Relevant to Health Maintenance Results * (ABNORMAL) Sedimentation Rate (09/02/2024 3:32 PM EDT) Sed Rate ([facility]) 70(H) < OR = 30 mm/h [facility] Blood BLOOD SPECIMEN / Unknown 09/02/2024 3:32 PM EDT 09/02/2024 3:32 PM EDT us Servando Umana MD LAB BLOOD ORDERABLES Final Resul t [facility] [address] [place] [address], [place] * (ABNORMAL) CBC and Differential (09/02/2024 3:32 PM EDT) WBC ([facility]) 7.5 3.8 - 10.8 Thousand/ uL [facility] RBC ([facility]) 4.32 3.80 - 5.10 Million/u L [facility] Hemoglobin ([facility]) 13.3 11.7 - 15.5 g/dL [facility] Hematocrit ([facility]) 41.3 35.0 - 45.0 % [facility] MCV ([facility]) 95.6 80.0 - 100.0 fL [facility] MCH ([facility]) 30.8 27.0 - 33.0 pg [facility] MCHC ([facility]) 32.2 32.0 - 36.0 g/dL [facility] Comment: For adults, a slight decrease in the calculated MCHC value (in the range of 30 to 32 g/dL) is most likely not clinically significant; however, it should be interpreted with caution in correlation with other red cell parameters and the patient's clinical condition. RDW ([facility]) 15.6(H) 11.0 - 15.0 % [facility] Platelets ([facility]) 417(H) 140 - 400 Thousand/ uL [facility] MPV ([facility]) 10.7 7.5 - 12.5 fL [facility] Absolute Neutrophils ([facility]) 4,643 1,500 - 7,800 cells/uL [facility] Absolute Lymphocytes ([facility]) 2,235 850 - 3,900 cells/uL [facility] Absolute Monocytes ([facility]) 450 200 - 950 cells/uL [facility] Absolute Eosinophils ([facility]) 120 15 - 500 cells/uL [facility] Absolute Basophils ([facility]) 53 0 - 200 cells/uL [facility] Neutrophils ([facility]) 61.9 % [facility] Lymphocytes ([facility]) 29.8 % [facility] Monocytes ([facility]) 6.0 % [facility] Eosinophils ([facility]) 1.6 % [facility] Basophils ([facility]) 0.7 % [facility] Blood BLOOD SPECIMEN / Unknown 09/02/2024 3:32 PM EDT 09/02/2024 3:32 PM EDT Servando Umana MD LAB BLOOD ORDERABLES Final Resul t [facility] [address] [place] [address], [place] * ALT (09/02/2024 3:32 PM EDT) ALT ([facility]) 10 6 - 29 U/L [facility] Blood BLOOD SPECIMEN / Unknown 09/02/2024 3:32 PM EDT 09/02/2024 3:32 PM EDT Servando Umana MD LAB BLOOD ORDERABLES Final Resul t Performing Organization Address [facility]/ZIP Co de Phone Number [facility] [address] [address], [place] * (ABNORMAL) AST (09/02/2024 3:32 PM EDT) Pathologist [facility] AST ([facility]) 9(L) 10 - 35 U/L [facility] Blood BLOOD SPECIMEN / Unknown 09/02/2024 3:32 PM EDT 09/02/2024 3:32 PM EDT Servando Umana MD LAB BLOOD ORDERABLES Final Resul t Performing Organization Address [facility] de Phone Number [facility] [place] [address], [place] * Creatinine, serum (09/02/2024 3:32 PM EDT) [facility] Creatinine ([facility]) 0.80 0.50 - 1.05 mg/dL [facility] eGFR ([facility]) 82 > OR = 60 mL/min/1.7 3m2 [facility] Blood BLOOD SPECIMEN / Unknown 09/02/2024 3:32 PM EDT 09/02/2024 3:32 PM EDT Servando Umana MD LAB BLOOD ORDERABLES Final Resul t Performing Organization Address [facility] Co de Phone Number [facility] [place] [address], [place] * Hepatitis C Ab with Reflex to HCV Virus Quantitation (01/28/2024 3:38 PM EST) Pathologist [facility] Hepatitis C Ab ([facility]) NON-REACT ZITA NON-REACT ZITA [facility] Comment: HCV antibody was non-reactive. There is no laboratory evidence of HCV infection. In most cases, no further action is required. However, if recent HCV exposure is suspected, a test for HCV RNA (test code 78832) is suggested. For additional information please refer to http://education.go2 media/faq/BSO74i6 (This link is being provided for informational/ educational purposes only.) 01/28/2024 3:38 PM EST 01/28/2024 3:38 PM EST Narrative [facility] - 01/30/2024 12:55 PM EST FASTING:NO FASTING: NO us Servando Umana MD LAB BLOOD ORDERABLES Final Resul t [facility] [address] [place] [address], from Last 3 Months or Most Recently Relevant to Health Maintenance Insurance [facility] DUAL COMPLETE (O SNP) Care Teams Outside Sales Representative Insurance Relationship Specialty Start Date End Date Olegario Singh DO [address] [place] [address] PCP - General Family Medicine 01/28/24
--- OUTSIDE RECORDS SUMMARY | 2024-09-23 11:59 | XMS_ITS | Encounter Summary ---
Author Organization [facility] Address [address] [place] [address] Phone Care Team Providers Care Treer Name Role Phone Olegario Singh DO Primary Care Provider Encounter Details Date Type Department Care Team (Late st Contact Info) Description 08/29/2019 Orders Only [facility] [address] [place] [address] Conversion, Onbase Social History Tobacco Use Types [...] r Schedule OUTSIDE LAB SCAN Lab Ordered: 08/29/2019 documented as of this encounter Visit Diagnoses Not on filedocumented in this encounter Care Teams Treer Relationship Specialty Start Date End Date Olegario iSngh DO [address] [facility] - Urgent Care [facility] [address] [place] [address] PCP - General 02/21/19 documented as of this encounter
--- OUTSIDE RECORDS SUMMARY | 2024-09-23 11:59 | XMS_ITS | Encounter Summary ---
Author Organization [facility] Address [address] [place] [address] Phone Care Team Providers Care Toe Former Name Role Phone Olegario Singh DO Primary Care Provider Encounter Details Date Type Department Care Team (Late st Contact Info) Description 06/08/2020 Orders Only [facility] [address] [place] [address] Conversion, Onbase Social History Tobacco Use Types [...] r Schedule OUTSIDE LAB SCAN Lab Ordered: 06/08/2020 documented as of this encounter Visit Diagnoses Not on filedocumented in this encounter Care Teams Toe Former Relationship Specialty Start Date End Date Olegario Singh DO [address] [facility] - Urgent Care [facility] [address] [place] [address] PCP - General 02/21/19 documented as of this encounter
--- OUTSIDE RECORDS SUMMARY | 2024-09-23 11:59 | XMS_ITS | Encounter Summary ---
Author Organization [facility] Address [address] [place] [address] Phone Care Team Providers Care Blasting Machine Operator Name Role Phone Olegario Singh DO Primary Care Provider Encounter Details Date Type Department Care Team (Late st Contact Info) Description 08/07/2019 Orders Only [facility] [address] [place] [address] Conversion, Onbase Social History Tobacco Use Types [...] r Schedule OUTSIDE LAB SCAN Lab Ordered: 08/07/2019 documented as of this encounter Visit Diagnoses Not on filedocumented in this encounter Care Teams Blasting Machine Operator Relationship Specialty Start Date End Date Olegario Singh DO [address] [facility] - [facility] [address] [place] [address] PCP - General 02/21/19 documented as of this encounter
--- OUTSIDE RECORDS SUMMARY | 2024-09-23 11:59 | XMS_ITS | Encounter Summary ---
Author Organization [facility] Address [address] [place] [address] Phone Care Team Providers Care Psychiatry Physician Name Role Phone Olegario Singh DO Primary Care Provider Encounter Details Date Type Department Care Team (Late st Contact Info) Description 07/03/2019 Orders Only [facility] [address] [place] [address] Conversion, Onbase Social History Tobacco Use Types [...] r Schedule OUTSIDE LAB SCAN Lab Ordered: 07/03/2019 documented as of this encounter Visit Diagnoses Not on filedocumented in this encounter Care Teams Psychiatry Physician Relationship Specialty Start Date End Date Olegario Singh DO [address] [facility] - Urgent Care [facility] [address] [place] [address] PCP - General 02/21/19 documented as of this encounter
--- OUTSIDE RECORDS SUMMARY | 2024-09-23 11:59 | XMS_ITS | Encounter Summary ---
Author Organization [facility] Address [address] [place] [address] Phone Care Team Providers Care Under Ground Miner Name Role Phone Olegario Singh DO Primary Care Provider Encounter Details Date Type Department Care Team (Late st Contact Info) Description 11/25/2019 Orders Only [facility] [address] [place] [address] Conversion, Onbase Social History Tobacco Use Types [...] r Schedule OUTSIDE LAB SCAN Lab Ordered: 11/25/2019 documented as of this encounter Visit Diagnoses Not on filedocumented in this encounter Care Teams Under Ground Miner Relationship Specialty Start Date End Date Olegario Singh DO [address] [facility] - Urgent Care [facility] [address] [place] [address] PCP - General 02/21/19 documented as of this encounter
--- OUTSIDE RECORDS SUMMARY | 2024-09-23 11:59 | XMS_ITS | Encounter Summary ---
Author Organization [facility] Address [address] [place] [address] Phone Care Team Providers Care Numerical Control Programmer Name Role Phone Olegario Singh DO Primary Care Provider Encounter Details Date Type Department Care Team (Late st Contact Info) Description 10/14/2020 Orders Only [facility] [address] [place] [address] Conversion, Onbase Social History Tobacco Use Types [...] r Schedule OUTSIDE LAB SCAN Lab Ordered: 10/14/2020 documented as of this encounter Visit Diagnoses Not on filedocumented in this encounter Care Teams Numerical Control Programmer Relationship Specialty Start Date End Date Olegario Singh DO [address] [facility] Physician Group - Urgent Care [facility] [address] [place] [address] PCP - General 02/21/19 documented as of this encounter
--- OUTSIDE RECORDS SUMMARY | 2024-09-23 11:59 | XMS_ITS | Encounter Summary ---
Author Organization [facility] Address [address] [place] [address] Phone Care Team Providers Care Associate Professor Of Violin Name Role Phone Olegario Singh DO Primary Care Provider Encounter Details Date Type Department Care Team (Late st Contact Info) Description 09/02/2020 Orders Only [facility] [address] [place] [address] Conversion, Onbase Social History Tobacco Use Types [...] r Schedule OUTSIDE LAB SCAN Lab Ordered: 09/02/2020 documented as of this encounter Visit Diagnoses Not on filedocumented in this encounter Care Teams Associate Professor Of Violin Relationship Specialty Start Date End Date Olegario Singh DO [address] [facility]ician Group - Urgent Care [facility] [address] [place] [address] PCP - General 02/21/19 documented as of this encounter
--- OUTSIDE RECORDS SUMMARY | 2024-09-23 11:59 | XMS_ITS | Encounter Summary ---
Author Organization [facility] Address [address] [place] [address] Phone Care Team Providers Care Information Systems Analyst Name Role Phone Olegario Singh DO Primary Care Provider Encounter Details Date Type Department Care Team (Late st Contact Info) Description 07/25/2019 Orders Only [facility] [address] [place] [address] Conversion, Onbase Social History Tobacco Use Types [...] r Schedule OUTSIDE LAB SCAN Lab Ordered: 07/25/2019 documented as of this encounter Visit Diagnoses Not on filedocumented in this encounter Care Teams Information Systems Analyst Relationship Specialty Start Date End Date Olegario Singh DO [address] [facility] Physician Group - Urgent Care [facility] [address] [place] [address] PCP - General 02/21/19 documented as of this encounter
--- OUTSIDE RECORDS SUMMARY | 2024-09-23 11:59 | XMS_ITS | Encounter Summary ---
Author Organization [facility] Address [address] [place] [address] Phone Care Team Providers Care Utility Worker Film Processing Name Role Phone Olegario Singh DO Primary Care Provider Encounter Details Date Type Department Care Team (Late st Contact Info) Description 04/30/2019 Orders Only [facility] [address] [place] [address] Conversion, Onbase Social History Tobacco Use Types [...] r Schedule OUTSIDE LAB SCAN Lab Ordered: 04/30/2019 OUTSIDE LAB SCAN Lab Ordered: 04/30/2019 documented as of this encounter Visit Diagnoses Not on filedocumented in this encounter Care Teams Utility Worker Film Processing Relationship Specialty Start Date End Date Olegario Singh DO [address] [facility] - Urgent Care [facility] [address] [place] [address] PCP - General 02/21/19 documented as of this encounter
--- OUTSIDE RECORDS SUMMARY | 2024-09-23 11:59 | XMS_ITS | Encounter Summary ---
Author Organization [facility] Address [address] [place] [address] Phone Care Team Providers Care Lock And Dam Equipment Repairer Name Role Phone Olegario Singh DO Primary Care Provider Encounter Details Date Type Department Care Team (Late st Contact Info) Description 10/29/2019 Orders Only [facility] [address] [place] [address] Conversion, Onbase Social History Tobacco Use Types [...] r Schedule OUTSIDE LAB SCAN Lab Ordered: 10/29/2019 documented as of this encounter Visit Diagnoses Not on filedocumented in this encounter Care Teams Lock And Dam Equipment Repairer Relationship Specialty Start Date End Date Olegario Singh DO [address] [facility] Physician Group - Urgent Care [facility] [address] [place] [address] PCP - General 02/21/19 documented as of this encounter
--- OUTSIDE RECORDS SUMMARY | 2024-09-23 11:59 | XMS_ITS | Encounter Summary ---
Author Organization [facility] Address [address] [place] [address] Phone Care Team Providers Care Parking Lot Supervisor Name Role Phone Olegario Singh DO Primary Care Provider Encounter Details Date Type Department Care Team (Late st Contact Info) Description 09/18/2019 Orders Only [facility] [address] [place] [address] Conversion, Onbase Social History Tobacco Use Types [...] r Schedule OUTSIDE LAB SCAN Lab Ordered: 09/18/2019 documented as of this encounter Visit Diagnoses Not on filedocumented in this encounter Care Teams Parking Lot Supervisor Relationship Specialty Start Date End Date Olegario Singh DO [address] [facility] - Urgent [facility] [address] [place] [address] PCP - General 02/21/19 documented as of this encounter
--- OUTSIDE RECORDS SUMMARY | 2024-09-23 11:59 | XMS_ITS | Encounter Summary ---
Author Organization [facility] Address [address] [place] [address] Phone Care Team Providers Care Chili Maker Name Role Phone Olegario Singh DO Primary Care Provider Encounter Details Date Type Department Care Team (Late st Contact Info) Description 09/23/2020 Orders Only [facility] [address] [place] [address] Conversion, Onbase Social History Tobacco Use Types [...] r Schedule OUTSIDE LAB SCAN Lab Ordered: 09/23/2020 documented as of this encounter Visit Diagnoses Not on filedocumented in this encounter Care Teams Chili Maker Relationship Specialty Start Date End Date Olegario Singh DO [address] [facility] Physician Group - Urgent Care [facility] [address] [place] [address] PCP - General 02/21/19 documented as of this encounter
--- OUTSIDE RECORDS SUMMARY | 2024-09-23 11:59 | XMS_ITS | Encounter Summary ---
Author Organization [facility] Address [address] [place] [address] Phone Care Team Providers Care Wellness Rn Name Role Phone Olegario Singh DO Primary Care Provider Encounter Details Date Type Department Care Team (Late st Contact Info) Description 01/21/2019 Orders Only [facility] [address] [place] [address] Conversion, Onbase Social History Tobacco Use Types [...] r Schedule OUTSIDE LAB SCAN Lab Ordered: 01/21/2019 documented as of this encounter Visit Diagnoses Not on filedocumented in this encounter Care Teams Wellness Rn Relationship Specialty Start Date End Date Olegario Singh DO [address] [facility] [address] [place] [address] PCP - General 02/21/19 documented as of this encounter
--- OUTSIDE RECORDS SUMMARY | 2024-09-23 11:59 | XMS_ITS | Encounter Summary ---
Author Organization [facility] Address [address] [place] [address] Phone Care Team Providers Care Locker Operator Name Role Phone Olegario Singh DO Primary Care Provider Encounter Details Date Type Department Care Team (Late st Contact Info) Description 05/29/2019 Orders Only [facility] [address] [place] [address] Conversion, Onbase Social History Tobacco Use Types [...] r Schedule OUTSIDE LAB SCAN Lab Ordered: 05/29/2019 documented as of this encounter Visit Diagnoses Not on filedocumented in this encounter Care Teams Locker Operator Relationship Specialty Start Date End Date Olegario Singh DO [address] [facility] [address] [place] [address] PCP - General 02/21/19 documented as of this encounter
--- OUTSIDE RECORDS SUMMARY | 2024-09-23 11:59 | XMS_ITS | Encounter Summary ---
Author Organization [facility] Address [address] [place] [address] Phone Care Team Providers Care Tool Storage Attendant Name Role Phone Olegario Singh DO Primary Care Provider Encounter Details Date Type Department Care Team (Late st Contact Info) Description 08/19/2019 Orders Only [facility] [address] [place] [address] Conversion, Onbase Social History Tobacco Use Types [...] r Schedule OUTSIDE LAB SCAN Lab Ordered: 08/19/2019 documented as of this encounter Visit Diagnoses Not on filedocumented in this encounter Care Teams Tool Storage Attendant Relationship Specialty Start Date End Date Olegario Singh DO [address] [facility] - Urgent Care [facility] [address] [place] [address] PCP - General 02/21/19 documented as of this encounter
--- OUTSIDE RECORDS SUMMARY | 2024-09-23 11:59 | XMS_ITS | Encounter Summary ---
Author Organization [facility] Address [address] [place] [address] Phone Care Team Providers Care Machine Tool Designer Name Role Phone Olegario Singh DO Primary Care Provider Encounter Details Date Type Department Care Team (Late st Contact Info) Description 02/03/2020 Orders Only [facility] [address] [place] [address] Conversion, Onbase Social History Tobacco Use Types [...] r Schedule OUTSIDE LAB SCAN Lab Ordered: 02/03/2020 documented as of this encounter Visit Diagnoses Not on filedocumented in this encounter Care Teams Machine Tool Designer Relationship Specialty Start Date End Date Olegario Singh DO [address] [facility] - Urgent Care [facility] [address] [place] [address] PCP - General 02/21/19 documented as of this encounter
--- OUTSIDE RECORDS SUMMARY | 2024-09-23 11:59 | XMS_ITS | Encounter Summary ---
Author Organization [facility] Address [address] [place] [address] Phone Care Team Providers Care Nib Assembler Name Role Phone Olegario Singh DO Primary Care Provider Encounter Details Date Type Department Care Team (Late st Contact Info) Description 04/06/[address] [facility] [address] [place] [address] Conversion, Onbase Social History Tobacco Use Types [...] r Schedule OUTSIDE LAB SCAN Lab Ordered: 04/06/2020 documented as of this encounter Visit Diagnoses Not on filedocumented in this encounter Care Teams Nib Assembler Relationship Specialty Start Date End Date Olegario Singh DO [address] [facility] - [facility] Care [facility] [address] [place] [address] PCP - General 02/21/19 documented as of this encounter
--- OUTSIDE RECORDS SUMMARY | 2024-09-23 11:59 | XMS_ITS | Encounter Summary ---
Author Organization [facility] Address [address] [place] [address] Phone Care Team Providers Care Durability Technician Name Role Phone Olegario Singh DO Primary Care Provider Encounter Details Date Type Department Care Team (Late st Contact Info) Description 06/29/2020 Orders Only [facility] [address] [place] [address] Conversion, Onbase Social History Tobacco Use Types [...] r Schedule OUTSIDE LAB SCAN Lab Ordered: 06/29/2020 documented as of this encounter Visit Diagnoses Not on filedocumented in this encounter Care Teams Durability Technician Relationship Specialty Start Date End Date Olegario Singh DO [address] [facility] - Urgent Care [facility] [address] [place] [address] PCP - General 02/21/19 documented as of this encounter
--- OUTSIDE RECORDS SUMMARY | 2024-09-23 12:00 | XMS_ITS | Encounter Summary ---
Author Organization [facility] Address [address] [place] [address] Phone Care Team Providers Care Flight Attendant Inflight Services Name Role Phone Olegario Singh DO Primary Care Provider Encounter Details Date Type Department Care Team (Late st Contact Info) Description 01/27/2021 Orders Only [facility] [address] [place] [address] Conversion, Onbase Social History Tobacco Use Types [...] r Schedule OUTSIDE LAB SCAN Lab Ordered: 01/27/2021 documented as of this encounter Visit Diagnoses Not on filedocumented in this encounter Care Teams Flight Attendant Inflight Services Relationship Specialty Start Date End Date Olegario Singh DO [address] [facility] - Ur[facility] Care [facility] [address] [place] [address] PCP - General 02/21/19 documented as of this encounter
--- OUTSIDE RECORDS SUMMARY | 2024-09-23 12:00 | XMS_ITS | Encounter Summary ---
Author Organization [facility] Address [address] [place] [address] Phone Care Team Providers Care Swimming Pool Cleaner Name Role Phone Olegario Singh DO Primary Care Provider Encounter Details Date Type Department Care Team (Late st Contact Info) Description 05/07/2018 Orders Only [facility] [address] [place] [address] Conversion, Onbase Social History Tobacco Use Types [...] r Schedule OUTSIDE LAB SCAN Lab Ordered: 05/07/2018 documented as of this encounter Visit Diagnoses Not on filedocumented in this encounter Care Teams Swimming Pool Cleaner Relationship Specialty Start Date End Date Olegario Singh DO [address] [facility] - Urgent Care [facility] [address] [place] [address] PCP - General 02/21/19 documented as of this encounter
--- OUTSIDE RECORDS SUMMARY | 2024-09-23 12:00 | XMS_ITS | Encounter Summary ---
Author Organization [facility] Address [address] [place] [address] Phone Care Team Providers Care Log Handling Equipment Operator Name Role Phone Olegario Singh DO Primary Care Provider Encounter Details Date Type Department Care Team (Late st Contact Info) Description 01/06/2021 Orders Only [facility] [address] [place] [address] Conversion, Onbase Social History Tobacco Use Types [...] r Schedule OUTSIDE LAB SCAN Lab Ordered: 01/06/2021 OUTSIDE LAB SCAN Lab Ordered: 01/06/2021 documented as of this encounter Visit Diagnoses Not on filedocumented in this encounter Care Teams Log Handling Equipment Operator Relationship Specialty Start Date End Date Olegario Singh DO [address] [facility] - Urgent Care [address] [address] PCP - General 02/21/19 documented as of this encounter
--- OUTSIDE RECORDS SUMMARY | 2024-09-23 12:00 | XMS_ITS | Encounter Summary ---
Author Organization [facility] Address [address] [place], [place] [id number] Care Team Providers Care Solution Spec Name Role Phone Go Escalante Primary Care Provide r Olegario Singh DO Primary Care Provider Source Comments In the event this information is protected by the Federal Confidentiality of Alcohol and Drug AbusePatient Records regulations: The Federal rules restrict any use of the information to criminally investigate or prosecute any alcohol or drug abuse patient.[facility] Encounter Details Date Type Department Care Team (Latest Contact Info) Description 09/10/2003 Prob Sum Review Provider, [facility] Social History Tobacco Use Types Packs/Day Years Used Date Smoking Tobacco: Never Assessed Comments No Sex and Gender Information Value Date Recorded Sex Assigned at Female 08/18/2023 2:37 PM EDT Legal Sex Female 10:00 AM EST Gender Identity Female 08/18/2023 2:37 PM EDT Sexual Orientation Not on file documented as of this encounter Plan of Treatment Not on file documented as of this encounter Visit Diagnoses Not on filedocumented in this encounter Care Teams Solution Spec Relationship Specialty Start Date End Date Go Escalanteharry [address] [place] [address] PCP - General 12/11/02 05/21/18 Olegario Singh DO [address] [address] PCP - General Family Medicine 05/22/18 documented as of this encounter
--- OUTSIDE RECORDS SUMMARY | 2024-09-23 12:00 | XMS_ITS | Encounter Summary ---
Author Organization [facility] Address [address] [place] [address] Phone Care Team Providers Care Electrical Test Technician Name Role Phone Olegario Singh DO Primary Care Provider Encounter Details Date Type Department Care Team (Late st Contact Info) Description 06/01/2018 Orders Only [facility] [address] [place] [address] Conversion, Onbase Social History Tobacco Use Types [...] r Schedule OUTSIDE LAB SCAN Lab Ordered: 06/01/2018 documented as of this encounter Visit Diagnoses Not on filedocumented in this encounter Care Teams Electrical Test Technician Relationship Specialty Start Date End Date Olegario Singh DO [address] [facility] - Urgent Care [facility] [address] [place] [address] PCP - General 02/21/19 documented as of this encounter
--- OUTSIDE RECORDS SUMMARY | 2024-09-23 12:00 | XMS_ITS | Encounter Summary ---
Author Organization [facility] Address [address] [place] [address] Phone Care Team Providers Care Apparatus Repair Mechanic Name Role Phone Olegario Singh DO Primary Care Provider Encounter Details Date Type Department Care Team (Late st Contact Info) Description 05/20/2018 Orders Only [facility] [address] [place] [address] Conversion, Onbase Social History Tobacco Use Types [...] r Schedule OUTSIDE LAB SCAN Lab Ordered: 05/20/2018 documented as of this encounter Visit Diagnoses Not on filedocumented in this encounter Care Teams Apparatus Repair Mechanic Relationship Specialty Start Date End Date Olegario Singh DO [address] [facility] - Ur[facility] Care [facility] [address] [place] [address] PCP - General 02/21/19 documented as of this encounter
--- OUTSIDE RECORDS SUMMARY | 2024-09-23 12:00 | XMS_ITS | Encounter Summary ---
Author Organization [facility] Address [address] [place] [address] Phone Care Team Providers Care System Administration Advisor Name Role Phone Olegario Singh DO Primary Care Provider Encounter Details Date Type Department Care Team (Late st Contact Info) Description 07/28/2021 Orders Only [facility] [address] [place] [address] Conversion, Onbase Social History Tobacco Use Types [...] r Schedule OUTSIDE LAB SCAN Lab Ordered: 07/28/2021 documented as of this encounter Visit Diagnoses Not on filedocumented in this encounter Care Teams System Administration Advisor Relationship Specialty Start Date End Date Olegario Singh DO [address] [facility] [address] [place] [address] PCP - General 02/21/19 documented as of this encounter
--- OUTSIDE RECORDS SUMMARY | 2024-09-23 12:00 | XMS_ITS | Encounter Summary ---
Author Organization [facility] Address [address] [place] [address] Care Team Providers Care Catering Staff Member Name Role Phone Olegario Singh DO Primary Care Provider Source Comments In the event this information is protected by the Federal Confidentiality of Alcohol and Drug AbusePatient Records regulations: The Federal rules restrict any use of the information to criminally investigate or prosecute any alcohol or drug abuse patient.[facility] Encounter Details Date Type Department Care Team (Latest Contact Info) Description 07/27/2023 H&P External-NonCCF Provider, External, RITESH Do not enter address information under generic External Provider. Social History Tobacco Use Types Packs/Day Years Used Date Smoking Tobacco: Every Day Cigarettes Passive Smoke Exposure: Current PHQ-2 Answer Date Recorded PHQ-2 score 3 07/09/2018 Area Deprivation Index Answer Date Jaun rded National Score (1-100), lower number is lower ri sk Not on file 02/22/2020 State Score (1-10), lower number is lower risk N ot on file 02/22/2020 Data from: https://www.neighborhoodatlas.medicine.[facility]/. Last address used for calculation Not on file 02/22/2020 Comments No Sex and Gender Information Value Date Recorded Sex Assigned at Female 08/18/2023 2:37 PM EDT Legal Sex Female 10:00 AM EST Gender Identity Female 08/18/2023 2:37 PM EDT Sexual Orientation Not on file documented as of this encounter Plan of Treatment Not on file documented as of this encounter Visit Diagnoses Not on filedocumented in this encounter Care Teams Catering Staff Member Relationship Specialty Start Date End Date Olegario Singh DO PCP - General Family Medicine 05/22/18 documented as of this encounter
--- OUTSIDE RECORDS SUMMARY | 2024-09-23 12:00 | XMS_ITS | Encounter Summary ---
Author Organization [facility] Address [address] [place] [address] Phone Care Team Providers Care Supervisor Clam Bed Name Role Phone Olegario Singh DO Primary Care Provider Encounter Details Date Type Department Care Team (Late st Contact Info) Description 05/10/2018 Orders Only [facility] [address] [place] [address] Conversion, Onbase Social History Tobacco Use Types [...] r Schedule OUTSIDE LAB SCAN Lab Ordered: 05/10/2018 documented as of this encounter Visit Diagnoses Not on filedocumented in this encounter Care Teams Supervisor Clam Bed Relationship Specialty Start Date End Date Olegario Singh DO [address] [facility] - Urgent Care [facility] [address] [place] [address] PCP - General 02/21/19 documented as of this encounter
--- OUTSIDE RECORDS SUMMARY | 2024-09-23 12:00 | XMS_ITS | Encounter Summary ---
Author Organization [facility] Address [address] [place] [address] Care Team Providers Care Ops Manager Name Role Phone Olegario Singh DO Primary Care Provider Source Comments In the event this information is protected by the Federal Confidentiality of Alcohol and Drug AbusePatient Records regulations: The Federal rules restrict any use of the information to criminally investigate or prosecute any alcohol or drug abuse patient.[facility] Encounter Details Date Type Department Care Team (Late st Contact Info) Description 02/07/2024 [place] [address] Provider, [facility] Medicare Coverage of Physical Exams Social History Tobacco Use Types Packs/Day Years Used Date Smoking Tobacco: Every Day Cigarettes Passive Smoke Exposure: Current PHQ-2 Answer Date Recorded PHQ-2 score 2 09/13/2023 Area Deprivation Index Answer Date Jaun rded National Score (1-100), lower number is lower ri sk 80 08/23/2023 State Score (1-10), lower number is lower risk 7 08/23/2023 Data from: https://www.neighborhoodatlas.medicine.[facility].edu/. Last address used for calculation [address] 08/23/2023 Comments No Sex and Gender Information Value Date Recorded Sex Assigned at Female 08/18/2023 2:37 PM EDT Legal Sex Female 10:00 AM EST Gender Identity Female 08/18/2023 2:37 PM EDT Sexual Orientation Not on file documented as of this encounter Plan of Treatment Not on file documented as of this encounter Visit Diagnoses Not on filedocumented in this encounter Care Teams Ops Manager Relationship Specialty Start Date End Date Olegario Singh DO PCP - General Family Medicine 05/22/18 documented as of this encounter
--- OUTSIDE RECORDS SUMMARY | 2024-09-23 12:00 | XMS_ITS | Encounter Summary ---
Author Organization [facility] Address [address] [place] [address] Phone Care Team Providers Care Cloth Coverer Name Role Phone Olegario Singh DO Primary Care Provider Encounter Details Date Type Department Care Team (Late st Contact Info) Description 02/24/2021 Orders Only [facility] [address] [place] [address] Conversion, Onbase Social History Tobacco Use Types [...] r Schedule OUTSIDE LAB SCAN Lab Ordered: 02/24/2021 documented as of this encounter Visit Diagnoses Not on filedocumented in this encounter Care Teams Cloth Coverer Relationship Specialty Start Date End Date Olegario Singh DO [address] [facility] - Urgent Care [facility] [address] [place] [address] PCP - General 02/21/19 documented as of this encounter
--- OUTSIDE RECORDS SUMMARY | 2024-09-23 12:00 | XMS_ITS | Encounter Summary ---
Author Organization [facility] Address [address] [place] [address] Phone Care Team Providers Care Trouble Dispatcher Name Role Phone Olegario Singh DO Primary Care Provider Encounter Details Date Type Department Care Team (Late st Contact Info) Description 05/11/2018 Orders Only [facility] [address] [place] [address] Conversion, Onbase Social History Tobacco Use Types [...] r Schedule OUTSIDE LAB SCAN Lab Ordered: 05/11/2018 documented as of this encounter Visit Diagnoses Not on filedocumented in this encounter Care Teams Trouble Dispatcher Relationship Specialty Start Date End Date Olegario Singh DO [address] [facility] - Urgent Care [facility] [address] [place] [address] PCP - General 02/21/19 documented as of this encounter
--- OUTSIDE RECORDS SUMMARY | 2024-09-23 12:00 | XMS_ITS | Encounter Summary ---
Author Organization [facility] Address [address] [place] [address] Phone Care Team Providers Care Credit Risk Analytics Manager Name Role Phone Olegario Singh DO Primary Care Provider Encounter Details Date Type Department Care Team (Late st Contact Info) Description 05/13/2018 Orders Only [facility] [address] [place] [address] Conversion, Onbase Social History Tobacco Use Types [...] r Schedule OUTSIDE LAB SCAN Lab Ordered: 05/13/2018 documented as of this encounter Visit Diagnoses Not on filedocumented in this encounter Care Teams Credit Risk Analytics Manager Relationship Specialty Start Date End Date lOegario Singh DO [address] [facility] - Urgent Care [facility] [address] [place] [address] PCP - General 02/21/19 documented as of this encounter
--- OUTSIDE RECORDS SUMMARY | 2024-09-23 12:00 | XMS_ITS | Clinical Summary ---
Author Organization [facility] Address [address] [place], [place] [id number] Care Team Providers Care Golf Course Designer Name Role Phone Olegario Singh Primary Care Provider Allergies Active Allergy Reactions Criticality Noted Date Comments Prochlorperazine Intolerance 12/25/2002 compazine Medications ASPIRIN 81MG TABLET Take one (1) tablet daily . 0 0 3 Active atorvastatin (LIPITOR) 40 mg tablet Take 40 mg by mouth daily at bedtime. 3 9 Active ALPRAZolam 1 mg dissolvable tablet Take 1 mg by mouth once daily. Active apixaban (ELIQUIS) 5 mg tab(s) Take by mouth two times a day. Active empagliflozin (JARDIANCE) 25 mg tablet Take 25 mg by mouth daily with breakfast. Active furosemide (LASIX) 20 mg tablet Take 20 mg by mouth once daily. Active metoprolol succinate ER (TOPROL XL) 25 mg 24 hr tablet Take 12.5 mg by mouth once daily. Active pantoprazole DR (PROTONIX) 40 mg tablet Take 40 mg by mouth once daily. Active potassium chloride (KLOR-CON M10 ORAL) Take 10 mEq by mouth once daily. Active amitriptyline (ELAVIL) 25 mg tablet Take 25 mg by mouth. 4 Active albuterol HFA (PROVENTIL HFA, VENTOLIN HFA) 90 mcg/actuation inhaler Inhale 2 Puffs as instructed. Active magnesium glycinate 100 mg magnesium capsule Take 1 capsule by mouth once daily. 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 Family History Medical History Relation Comments Rheumatoid arthritis Brother Heart disease Father Hypertension Father Hypertension Mother Hypothyroidism Mother Relation Status Comments Brother Father Mother Social History Tobacco Use Types Packs/Day Years Used Date Smoking Tobacco: Every Day Cigarettes Passive Smoke Exposure: Current Tobacco Cessation:Ready to Q uit: Not Asked; Counseling Given: Not Answered PHQ-2 Answer Date Recorded PHQ-2 score 2 09/13/2023 Area Deprivation Index Answer Date Jaun rded National Score (1-100), lower number is lower ri sk 80 08/23/2023 State Score (1-10), lower number is lower risk 7 08/23/2023 Data from: https://www.neighborhoodatlas.[facility].edu/. Last address used for calculation [address] [facility] [address] 08/23/2023 Comments No Sex and Gender Information Value Date Recorded Sex Assigned at Female 08/18/2023 2:37 PM EDT Legal Sex Female 10:00 AM EST Gender Identity Female 08/18/2023 2:37 PM EDT Sexual Orientation Not on file Last Filed Vital Signs Vital Sign Reading Time Taken Comments Blood Pressure 120/76 09/14/2023 3:37 PM EDT Pulse 72 09/14/2023 3:37 PM EDT Temperature 36.6 C (97.8 F) 09/14/2023 3:37 PM EDT Respiratory Rate 18 09/14/2023 3:37 PM EDT Oxygen Saturation 96% 09/14/2023 3:37 PM EDT Inhaled Oxygen Concentration - - Weight 52.9 kg (116 lb 9.6 oz) 09/14/2023 3:37 P M EDT Height 162.6 cm (5' 4 ) 07/09/2018 11:56 AM EDT Body Mass Index 20.01 07/09/2018 11:56 AM EDT Plan of Treatment Health Maintenance Due Date Last Done Comments Anxiety Screening 1977 Depression Screening 1977 HIV Screening 1977 DTaP,Tdap,Td Vaccine (1 - Tdap) [address] Colonography 02/07/2004 Cologuard (FIT-DNA) 02/07/2004 Colonoscopy 02/07/2004 Colorectal Cancer Screening 02/07/2004 Fecal Occult Blood 02/07/2004 Sigmoidoscopy 02/07/2004 Shingrix Vaccine (1 of 2) 2009 RSV Vaccine (1 - Risk 60-74 years 1-dose series) 2019 Pneumococcal Vaccine: 50+ (2 of 2 - PPSV23) 02/27/2019 01/02/2019 Covid-19 Vaccine ( - season) 2023 02/25/2021, 06/21/2020, 05/29/2020 Bone Density Screening 02/07/2024 Advance Directive Discussion 03/19/2024 Medicare Advantage Annual We llness Visit 03/19/2024 Influenza Vaccine (#1) 2024 Diabetes Screening 08/22/2026 08/23/2023, 0 10/30/2019, 07/09/2018 Lipid Screening 08/22/2028 08/23/2023 Hepatitis C Screening Completed 07/09/2018 Procedures Procedure Name Priority Date/Time Associated Diagnosis Comments COMPREHENSIVE METABOLIC PANEL Routine 08/23/2023 3:51 PM EDT 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) Abnormal weight loss CHOLESTEROL BLD Routine 08/23/2023 3:51 PM EDT 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) Abnormal weight loss HEP REMOTE PANEL BL Routine 07/09/2018 1 :39 PM EDT Hist rheumatoid arthritis, unspecified site (HCC) Chronic pain of both shoulders Bilateral hand pain Hip pain, bilateral Chronic pain of both knees Methotrexate, long term acute care registered nurse, current use from Last 3 Months or Most Recently Relevant to Health Maintenance Results * (ABNORMAL) COMPREHENSIVE METABOLIC PANEL (08/23/2023 3:51 PM EDT) [facility] Protein, Total 8.0 6.3 - 8.0 g/dL 08/24/2023 8:13 AM T [facility] Albumin 3.8(L) 3.9 - 4.9 g/dL 08/24/2023 8:13 AM EDT [facility] Calcium, Total 10.0 8.5 - 10.2 mg/dL 08/24/2023 8:13 AM EDT [facility] Bilirubin, Total 0.4 0.2 - 1.3 mg/dL 08/24/2023 8:13 AM T [facility] Alkaline Phosphatase 123 34 - 123 U/L 08/24/2023 8:13 AM T [facility] AST 16 13 - 35 U/L 08/24/2023 8:13 AM EDT [facility] ALT 9 7 - 38 U/L 08/24/2023 8:13 AM T [facility] Glucose 92 74 - 99 mg/dL 08/24/2023 8:13 AM T [facility] Comment: The [place] Diabetes Association (ADA) provides guidance for cutoff [...] Standards of Medical Care in Diabetes 2016, [place] [employer] Association. Diabetes Care. 2016.39(Suppl 1). BUN 6(L) 7 - 21 mg/dL 08/24/2023 8:13 AM T [facility] Creatinine 0.78 0.58 - 0.96 mg/dL 08/24/2023 8:13 AM EDT [facility] Sodium 139 136 - 144 mmol/L 08/24/2023 8:13 AM EDT [facility] Potassium 3.7 3.7 - 5.1 mmol/L 08/24/2023 8:13 AM EDT [facility] Chloride 103 98 - 107 mmol/L 08/24/2023 8:13 AM EDT [facility] CO2 24 22 - 30 mmol/L 08/24/2023 8:13 AM EDT [facility] Anion Gap 12 8 - 15 mmol/L 08/24/2023 8:13 AM EDT [facility] Estimated Glomerular Filtration Rate 85 >=60 mL/min/1. 73m 08/24/2023 8:13 AM EDT [facility] Comment:Estimated Glomerular Filtration Rate (eGFR) is calculated using the 2020 CKD-EPI creatinine equation. This equation utilizes serum creatinine, sex, and age as parameters. The creatinine assay has traceable calibration to isotope dilution- mass spectrometry. Refer to KDIGO guidelines for clinical interpretation. In patients with unstable renal function, e.g. those with acute kidney injury, the eGFR may not accurately reflect actual GFR. Blood BLOOD SPECIMEN / Unknown Venipuncture / Unknown 08/23/2023 3:51 PM EDT 08/23/2023 3:51 PM EDT Neville Beth MD LABORATORY Final Result [facility] [address] [place] [address] * TOTAL CHOLESTEROL (08/23/2023 3:51 PM EDT) [facility] Cholesterol, Total 142 <200 mg/dL 08/24/2023 5:33 AM EDT [facility] Comment: <200 mg/dL, Desirable 200-239 mg/dL, Borderline high >239 mg/dL, High Reference: 1. National Cholesterol Education Program ATP III Guideline At-A-Glance Quick Desk Reference: National Heart, Lung, and Blood [place]. National Institutes of Health. 2001: NIH Publication No. 01-3305. Blood BLOOD SPECIMEN / Unknown Venipuncture / Unknown 08/23/2023 3:51 PM EDT 08/23/2023 3:51 PM EDT Neville Beth MD LABORATORY Final Result Performing Organization Address City/[facility]/ZIP Co de Phone Number [facility] [address] [facility] [address] [place] [address], [place] * HEP REMOTE PANEL BL (07/09/2018 1:39 PM EDT) Hep B Core Ab, Total Negative Negative 07/10/2018 10:37 AM EDT [facility] Hep C Antibody IA Negative Negative 07/10/2018 10:38 AM EDT [facility] HBsAg Negative Negative 07/10/2018 10:38 AM EDT [facility] Hep B Surface Ab, Qual Negative Negative 07/10/2018 10:38 AM EDT [facility] Comment:NEGATIVE Blood specimen (specimen) 07/09/2018 1:39 PM EDT 07/09/2018 1:41 PM EDT Wilmar Walter MD LABORATORY Final Resul t Performing Organization Address [facility] Co de Phone Number [facility] [address] [facility] [place] [address] [facility] [address] [place] [address] from Last 3 Months or Most Recently Relevant to Health Maintenance Insurance [employer] MEDICARE Care Teams Golf Course Designer Relationship Specialty Start Date End Date Olegario Singh DO PCP - General Family Medicine 05/22/18
--- OUTSIDE RECORDS SUMMARY | 2024-09-23 12:00 | XMS_ITS | Encounter Summary ---
Author Organization [facility] Address [address] [place] [address] Phone Care Team Providers Care Creel Clerk Name Role Phone Olegario Singh DO Primary Care Provider Encounter Details Date Type Department Care Team (Late st Contact Info) Description 12/23/2018 Orders Only [facility] [address] [place] [address] Conversion, Onbase Social History Tobacco Use Types [...] r Schedule OUTSIDE LAB SCAN Lab Ordered: 12/23/2018 OUTSIDE LAB SCAN Lab Ordered: 12/23/2018 documented as of this encounter Visit Diagnoses Not on filedocumented in this encounter Care Teams Creel Clerk Relationship Specialty Start Date End Date Olegario Singh DO [address] [facility] [address] [place] [address] PCP - General 02/21/19 documented as of this encounter
--- OUTSIDE RECORDS SUMMARY | 2024-09-23 12:00 | XMS_ITS | Encounter Summary ---
Author Organization [facility] Address [address] [place] [address] Phone Care Team Providers Care Banking Specialist Name Role Phone Olegario Singh DO Primary Care Provider Encounter Details Date Type Department Care Team (Late st Contact Info) Description 11/26/2018 Orders Only [facility] [address] [place] [address] Conversion, Onbase Social History Tobacco Use Types [...] r Schedule OUTSIDE LAB SCAN Lab Ordered: 11/26/2018 documented as of this encounter Visit Diagnoses Not on filedocumented in this encounter Care Teams Banking Specialist Relationship Specialty Start Date End Date Olegario Singh DO [address] [facility] - Urgent Care [facility] [address] [place] [address] PCP - General 02/21/19 documented as of this encounter
--- OUTSIDE RECORDS SUMMARY | 2024-09-23 12:00 | XMS_ITS | Encounter Summary ---
Author Organization [facility] Address [address] [place] [address] Phone Care Team Providers Care Stakeholder Manager Name Role Phone Olegario Singh DO Primary Care Provider Encounter Details Date Type Department Care Team (Late st Contact Info) Description 04/13/2021 Orders Only [facility] [address] [place] [address] Conversion, Onbase Social History Tobacco Use Types [...] r Schedule OUTSIDE LAB SCAN Lab Ordered: 04/13/2021 documented as of this encounter Visit Diagnoses Not on filedocumented in this encounter Care Teams Stakeholder Manager Relationship Specialty Start Date End Date Olegario Singh DO [address] [facility] [address] [place] [address] PCP - General 02/21/19 documented as of this encounter
--- OUTSIDE RECORDS SUMMARY | 2024-09-23 12:00 | XMS_ITS | Encounter Summary ---
Author Organization [facility] Address [address] [place] [address] Phone Care Team Providers Care Surgical Training Specialist Name Role Phone Olegario Singh DO Primary Care Provider Encounter Details Date Type Department Care Team (Late st Contact Info) Description 06/10/2018 Orders Only [facility] [address] [place] [address] Conversion, Onbase Social History Tobacco Use Types [...] r Schedule OUTSIDE LAB SCAN Lab Ordered: 06/10/2018 documented as of this encounter Visit Diagnoses Not on filedocumented in this encounter Care Teams Surgical Training Specialist Relationship Specialty Start Date End Date Olegario Singh DO [address] [facility] [address] [place] [address] PCP - General 02/21/19 documented as of this encounter
--- OUTSIDE RECORDS SUMMARY | 2024-09-23 12:00 | XMS_ITS | Encounter Summary ---
Author Organization [facility] Address [address] [place] [address] Phone Care Team Providers Care Spreader Name Role Phone Olegario Singh DO Primary Care Provider Encounter Details Date Type Department Care Team (Late st Contact Info) Description 06/30/2021 Orders Only [facility] [address] [place] [address] Conversion, Onbase Social History Tobacco Use Types [...] r Schedule OUTSIDE LAB SCAN Lab Ordered: 06/30/2021 documented as of this encounter Visit Diagnoses Not on filedocumented in this encounter Care Teams Spreader Relationship Specialty Start Date End Date Olegario Singh DO [address] [facility] - Urgent Care [facility] [address] [place] [address] PCP - General 02/21/19 documented as of this encounter
--- OUTSIDE RECORDS SUMMARY | 2024-09-23 12:00 | XMS_ITS | Encounter Summary ---
Author Organization [facility] Address [address] [place] [address] Phone Care Team Providers Care Lapidary Apprentice Name Role Phone Olegario Singh DO Primary Care Provider Encounter Details Date Type Department Care Team (Late st Contact Info) Description 07/09/2018 Orders Only [facility] [address] [place] [address] Conversion, Onbase Social History Tobacco Use Types [...] r Schedule OUTSIDE LAB SCAN Lab Ordered: 07/09/2018 documented as of this encounter Visit Diagnoses Not on filedocumented in this encounter Care Teams Lapidary Apprentice Relationship Specialty Start Date End Date Olegario Singh DO [address] [facility] - Urgent Care [facility] [address] [place] [address] PCP - General 02/21/19 documented as of this encounter
--- OUTSIDE RECORDS SUMMARY | 2024-09-23 12:00 | XMS_ITS | Encounter Summary ---
Author Organization [facility] Address [address] [place] [address] Phone Care Team Providers Care Mechanical Project Engineer Name Role Phone Olegario Singh DO Primary Care Provider Encounter Details Date Type Department Care Team (Late st Contact Info) Description 05/25/2021 Orders Only [facility] LE[facility] [address] [place] [address] Conversion, Onbase Social History Tobacco Use Types [...] r Schedule OUTSIDE LAB SCAN Lab Ordered: 05/25/2021 documented as of this encounter Visit Diagnoses Not on filedocumented in this encounter Care Teams Mechanical Project Engineer Relationship Specialty Start Date End Date Olegario Singh DO [address] [facility] - Urgent Care [facility] [address] [place] [address] PCP - General 02/21/19 documented as of this encounter
--- OUTSIDE RECORDS SUMMARY | 2024-09-23 12:00 | XMS_ITS | Clinical Summary ---
Author Organization [facility] Address [address] [place] [address] Phone Care Team Providers Care Cell Assembly Pinner Name Role Phone Olegario Singh DO Primary Care Provider Social History Tobacco Use Types Packs/Day Years Used Date Smoking Tobacco: Never Assessed Comments Unknown Sex and Gender Information Value Date Recorded Sex Assigned at Not on file Legal Sex Female 4:11 PM EST Gender Identity Not on file Sexual Orientation Not on file Last Filed Vital Signs Vital Sign Reading Time Taken Comments Blood Pressure 88/60 07/14/2021 11:29 AM EDT Pulse 73 07/14/2021 11:27 AM EDT Temperature - - Respiratory Rate - - Oxygen Saturation - - Inhaled Oxygen Concentration - - Weight 81.6 kg (180 lb) 07/14/2021 11:27 AM EDT Height 162.6 cm (5' 4 ) 07/14/2021 11:27 AM EDT Body Mass Index 30.9 07/14/2021 11:27 AM EDT Plan of Treatment Health Maintenance Due Date Last Done Comments Bone Density Scan 1959 CT Colonography 1959 Colonoscopy 1959 Colorectal Cancer Screening 1959 FIT-DNA (Cologuard) 1959 FIT 1959 Lipid Panel 1959 Sigmoidoscopy 1959 Yearly Adult Physical 1959 MMR Vaccines (1 of 1 - Stand maribel series) 02/07/1960 Diabetes Screening 1977 Hepatitis C Screening 1977 Pneumococcal Vaccine (1 of 2 - PCV) 1978 Cervical Cancer Screening 02/07/1980 HPV/Cotest 02/07/1980 Pap Smear 02/07/1980 DTaP/Tdap/Td Vaccines (1 - Tdap) 1981 Mammogram 1999 Zoster Vaccines (1 of 2) 2009 RSV High Risk: (Elderly (60+ ) or Population) (1 - Risk 60-74 years 1-dose series) 2019 COVID-19 Vaccine (1 - 2023-2 5 season) 2023 Influenza Vaccine (#1) 2024 HIB Vaccines Aged Out No longer eligi ble based on patient's age to complete this topic HPV Vaccines (No Doses Required) Completed Hepatitis A Vaccines Aged Out No long er eligible based on patient's age to complete this topic Hepatitis B Vaccines Aged Out No long er eligible based on patient's age to complete this topic IPV Vaccines Aged Out No longer eligi ble based on patient's age to complete this topic Meningococcal Vaccine Aged Out No francisco carrillo eligible based on patient's age to complete this topic Rotavirus Vaccines Aged Out No longer eligible based on patient's age to complete this topic Care Teams Cell Assembly Pinner Relationship Specialty Start Date End Date Olegario Singh DO [address] [facility] [address] [place] [address] PCP - General 02/21/19
--- OUTSIDE RECORDS SUMMARY | 2024-09-23 12:00 | XMS_ITS | Encounter Summary ---
Author Organization [facility] Address [address] [place] [address] Phone Care Team Providers Care Business Technology Teacher Name Role Phone Olegario Singh DO Primary Care Provider Encounter Details Date Type Department Care Team (Late st Contact Info) Description 12/07/2020 Orders Only [facility] [address] [place] [address] Conversion, Onbase Social History Tobacco Use Types [...] r Schedule OUTSIDE LAB SCAN Lab Ordered: 12/07/2020 documented as of this encounter Visit Diagnoses Not on filedocumented in this encounter Care Teams Business Technology Teacher Relationship Specialty Start Date End Date Olegario Singh DO [address] [facility] - Ur[facility] Care [facility] [address] [place] [address] PCP - General 02/21/19 documented as of this encounter
[2024-09-23 13:11] LABS: Alanine Aminotransferase 22 U/L (14-59); Albumin Globulin Ratio 0.7; Albumin Level 3.1 g/dL (3.4-5.0); Alkaline Phosphatase 133 U/L (46-116); Anion Gap 10.0; Aspartate Amino Transferase 71 U/L (15-37); Blood Urea Nitrogen 11.0 mg/dL (7.0-18.0); Calcium 9.5 mg/dL (8.5-10.1); Carbon Dioxide 35.8 mmol/L (21.0-32.0); Chloride 97 mmol/L (98-107); Cholesterol 143 mg/dL (<=200); Estimated GFR (African America >60 (>=60 mL/min/1.73m^2); Estimated GFR (Non-African Ame >60 (>=60 mL/min/1.73m^2); Globulin 4.5 g/dL; Glucose 90 mg/dL (74-106); HDL Cholesterol 53 mg/dL (40-60); Magnesium 2.0 mg/dL (1.8-2.4); Sodium 140 mmol/L (136-145); TSH W/ REFLEX FT4 0.586 uIU/mL (0.358-3.740); Total Protein 7.6 g/dL (6.4-8.2); Triglycerides 93 mg/dL (<=150); VLDL CHOLESTEROL 18.6 mg/dL
[2024-09-23 13:12] LABS: Hematocrit 39.6 % (36.0-48.0); Hemoglobin 12.9 g/dL (12.0-16.0); Immature Granulocytes Abs Auto 0.02 10^3/uL (0.00-0.03); Immature Granulocytes Pct Auto 0.3 % (0.0-0.5); Lymphocytes Absolute Auto 2.2 10^3/uL (1.2-3.8); Mean Corpuscular HGB Conc 32.6 g/dL (29.9-35.2); Mean Corpuscular Hemoglobin 31.0 pg (26.7-34.0); Mean Corpuscular Volume 95.2 fL (81.0-99.0); Platelet Count 346 10^3/uL (150-450); Red Blood Count 4.16 10^6/uL (4.20-5.40); White Blood Count 7.5 10^3/uL (4.0-11.0)
[2024-09-23 13:49] LABS: Potassium 2.8 mmol/L (3.5-5.1)
== END 2024-09-23 11:58 | disposition home or self-care (01) ==
LOC: LAB 11:57
DX: G31.84 Mild cognitive impairment of uncertain or unknown etiology (principal); E87.6 Hypokalemia; K22.710 Barrett's esophagus with low grade dysplasia; Z95.5 Presence of coronary angioplasty implant and graft; I25.10 Atherosclerotic heart disease of native coronary artery without angina pectoris; E03.9 Hypothyroidism, unspecified; I48.20 Chronic atrial fibrillation, unspecified
CPT/HCPCS: 36415; 80053; 80061; 83735; 84443; 85025

== ENCOUNTER 2024-12-26 13:02 | Outpatient (OUT) | payer MEDICARE, SELFPAY ==
--- OUTSIDE RECORDS SUMMARY | 2024-12-26 13:09 | XMS_ITS | CCD ---
Author Organization [facility] Care Team Providers Care Veterans Employment Representative Name Role Phone Ed Lawton Unavailable Unavailable Unavailable Ed Lawton Unavailable JeredDavide avilaew Unavailable LEIGHA White Attending Provider [phone] NO FAMILY, PHYSICIAN Primary Care Provider Unava MD Osman Jiménez Attending Provider Drew White Unavailable KYRAC, DR RICHTER Admitting Unavailable JERED, ED Primary [...] Provider Unava MD Charlotte Marvinalex Attending Provider DO Ed Lawton Primary Care Provider Jered, DO Ed Tejeda Attending Provider NO FAMILY, PHYSICIAN Primary Care Provider Unava MD Mikey Marvin Attending Provider Jered GARCIAEd Osorio Primary Care Provider NO FAMILY, PHYSICIAN Primary Care Provider Unava ilMD Mikey Lobo Attending Provider [phone] NO FAMILY, PHYSICIAN Primary Care Provider Unava MD Mikey Marvin Attending Provider DO Ed Lawton Primary Care Provider DO Ed Lawton Attending Provider [phone] NO FAMILY, PHYSICIAN Primary Care Provider Unava ilMD Mikey Lobo Attending Provider ED LAWTON Primary Care Unavailab le ABHYANKAR, NEVILLE Referring Unavailable ABHYANKAR, NEVILLE Attending Unavailable ED LAWTON Primary Care Unavailab le ABHYANKAR, NEVILLE Referring Unavailable ED LAWTON Primary Care Unavailab le ABHYANKAR, NEVILLE Attending Unavailable ED LAWTON Primary Care Unavailab le NO FAMILY, PHYSICIAN Primary Care Provider Unava ilMD Mikey Lobo Attending Provider MD Josue Muro Attending Provider DO Ed Lawton Primary Care Provider DO dE Lawton Attending Provider [phone] NO FAMILY, PHYSICIAN Primary Care Provider Unava MD Mikey Marvin Attending Provider [phone] DO Ed Lawton Primary Care Provider [phone] NO FAMILY, PHYSICIAN Primary Care Provider Unava MD Mikey Marvin Attending Provider ROGER RAZA Attending Unavailable Ed Lawton MD Primary Care Provider Jered DO, Ed Primary Care Provider Jered DOEd N Primary Care Provider [phone] Jered DOEd N Primary Care Provider [phone] JERED, ED Primary Care Unavailable UMANA, SERVANDO Referring Unavailable UMANA, SERVANDO Admitting Unavailable UMANA, SERVANDO Admitting Unavailable JERED, ED Primary Care Unavailable UMANA, SERVANDO Referring Unavailable BERNARDA JOYA Attending Unavailable BERNARDA JOYA Referring Unavailable JERED, ED N Primary Care Unavailable BERNARDA JOYA Attending Unavailable JERED, ED N Referring Unavailable JERED, ED N Primary Care Unavailable THI EMERSON Referring Unavailable JERED, ED N Primary Care Unavailable NO FAMILY, PHYSICIAN Primary Care Provider Unava ilable Mikey Mccord MD Attending Provider Jered DOEd N Primary Care Provider [phone] Jered DO, Ed N Primary Care Provider Sophie Hooper LPN Attending Provider Unav ailable Jered DOEd Nikhil Attending Provider NO FAMILY, PHYSICIAN Primary Care Provider Unava ilable Mikey Mccord MD Attending Provider [phone] UMANA, SERVANDO Attending Unavailable JERED, ED Primary Care Unavailable JERED, ED Primary Care Unavailable UMANA, SERVANDO Attending Unavailable JERED, ED Primary Care Unavailable UMANA, SERVANDO Attending Unavailable UMANA, SERVANDO Attending Unavailable UMANA, SERVANDO Admitting Unavailable JERED, ED Referring Unavailable JERED, ED Primary Care Unavailable UMANA, SERVANDO Attending Unavailable JERED, ED Referring Unavailable JERED, ED Primary Care Unavailable Jered DOEd N Primary Care Provider Jered DOEd N Attending Provider [phone] NO FAMILY, PHYSICIAN Primary Care Provider Unava ilable Mikey Mccord MD Attending Provider Ed Lawton Admitting Unavailable Ed Lawton Attending Unavailable Ed Lawton Primary Care Unavailable Mikey Mccord Admitting Unavailab Mikey Scott Attending Unavailab franc NO FAMILY, PHYSICIAN Primary Care Unavailable Allergies Allergy Classification Reported Allergen(s) Allergy Type Date of Onset Reaction(s) Facility (20 sources) Prochlorperazine; 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: [Compazine] Drug Allergy 3 Intolerance, GI intolerance, Other (See Comments) [facility] (1 source) Prochlorperazine Drug Allergy 3 [facility] Repository (5 sources) Prochlorperazine; 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: [PROCHLORPERAZINE] Drug Allergy 3 [facility] Repository Medications Current Medications Medication Drug Class(es) Dates Sig (Normalized) Sig (Original) [id number] 200 actuat albuterol 0.09 mg/actuat metered dose inhaler (20 sources) beta2-Adrenergic Agonist Start: 09-05-2023 Albuterol Sulfate 90 mcg/actuation HFA aerosol inhaler Active 1 INH INHALATION Every 4 hours as needed for shortness of breath or wheezing September 05, 2023 12:00am Complies with drug therapy Start: 05-10-2023 take 2 puff(s) by in halation four times daily albuterol (PROVENTIL HFA;VENTOLIN HFA) 90 mcg/actuation inhaler Inhale 2 puffs 4 (four) times a day. 05/10/2023 Active Start: 05-10-2023 albuterol 90 m cg/actuation inhaler Inhale 2 (two) puffs . 05/10/2023 Active Start: 05-10-2023 albuterol HFA 90 mcg/act inhaler Inhale 2 puffs 05/10/2023 Active Start: 05-10-2023 End: 09-05-2023 take 90 ug by inhalation every four hours as needed Albuterol Sulfate 90 mcg/actuation aero powdr breath act w/sensor Discontinued 90 MCG INHALATION Every 4 hours as needed for shortness of breath 1 May 10, 2023 1:00am September 05, 2023 [...] by inhalation four times daily Albuterol Sulfate 2.5 mg /3 mL (0.083 %) Solution For Nebulization Discontinued 2.5 MG INHALATION Four times daily - Respiratory 360 30 September 06, 2018 12:00am June 16, 2021 4:48am Albuterol Sulfate (2.5 MG/ 3 ML) 2.5 MG/3ML 0.083% Nebulization Solution (9 sources) Albuterol Sulfat e (2.5 MG/ 3 ML) 2.5 MG/3ML 0.083% Nebulization Solution 3ml Inhalation 4 times a day Active ALPRAZolam 1 mg oral tablet (20 sources) Benzodiazepine Start: 07-27-2021 ALPRAZolam (XA NAX) 1 mg tablet Take 1 tablet (1 mg total) by mouth as needed. 07/27/2021 Active Start: 09-01-2018 End: 06-08-2019 take 1 tablet by mouth three times daily Alprazolam 1 mg tablet Discontinued 1 MG PO Three times daily 0 September 06, 2018 2:09pm June 03, 2019 4:18pm take 1 tablet by [facility] once daily ALPRAZolam 1 mg dissolvable tablet Take 1 mg by mouth once daily. Active take 1 tablet by [facility] every twelve hours ALPRAZolam 1 MG 1 tablet Orally Twice a day Active take 1 tablet by [facility] three times daily as needed ALPRAZolam ER 1 MG Oral Tablet Extended Release 24 Hour 1 tablet three times daily as needed Quantity: 0 Refills: 0 Ordered: 28-Apr-2021 DO Active amitriptyline hydrochloride 25 mg oral tablet (20 sources) Tricyclic Antidepressant Start: 08-05-2024 take 1 tablet by mouth once daily Amitriptyline 25 mg tablet Active 0 .ROUTE .COMPLEX August 05, 2024 12:13pm TAKE 1 TABLET BY MOUTH DAILY Complies with drug therapy Start: 09-06-2023 End: 01-15-2024 Amitriptyline 25 mg tablet Discontinued 0 .ROUTE .COMPLEX September 06, 2023 12:39pm January 15, 2024 1:14pm TAKE 1 TABLET AT BEDTIME DAILY Start: 05-10-2023 End: 08-05-2024 take 1 tablet by mouth once daily amitriptyline (ELAVIL) 25 mg tablet Take 1 tablet (25 mg total) by mouth nightly. 05/10/2023 Active apixaban 5 mg oral tablet (20 sources) Factor Xa Inhibitor Start: 12-01-2022 End: 05-29-2024 take 1 tablet by mouth at bedtime ELIQUIS 5 mg tablet TAKE 1 TABLET (5 MG TOTAL) BY MOUTH IN THE MORNING AND BEFORE BEDTIME 180 tablet 2 05/29/2024 Active aspirin 81 mg delayed release oral tablet (20 sources) Platelet Aggregation Inhibitor, Nonsteroidal Anti-inflammatory Drug Start: 06-23-2021 take 1 tablet by mouth once daily Aspirin 81 mg tablet,delayed release (DR/EC) Active 81 MG PO Daily 90 90 June 23, 2021 12:00am Complies with drug therapy Start: 05-06-2018 End: 08-26-2019 take 1 tablet by mouth once daily Aspirin 81 mg Tablet,Chewable Discontinued 81 MG PO Daily May 06, 2018 1:00am August 26, 2019 11:58am Start: 02-27-2003 ASPIRIN 81MG T ABLET Take one (1) tablet daily . 0 0 02/27/2003 Active atorvastatin 40 mg oral tablet (20 sources) HMG-CoA Reductase Inhibitor Start: 06-06-2024 take 1 tablet by mouth in the morning atorvastatin (LIPITOR) 40 mg tablet Take 1 tablet (40 mg total) by mouth in the morning. 90 tablet 3 06/06/2024 Active Start: 06-26-2023 End: 06-06-2024 take 1 tablet by mouth once daily Atorvastatin 80 mg tablet Active 80 MG PO Daily September 05, 2023 12:00am Complies with drug therapy Start: 08-25-2020 End: 05-10-2023 take 1 tablet by mouth once daily Atorvastatin (Lipitor) 80 mg Tablet Discontinued 80 MG PO Daily June 16, 2021 12:00am May 10, 2023 11:26am Start: 05-11-2018 End: 09-05-2023 take 1 tablet by mouth once daily Atorvastatin 40 mg tablet Discontinued 40 MG PO Daily July 24, 2023 12:00am September 05, 2023 10:22am Start: 05-06-2018 End: 08-31-2018 take 1 tablet by mouth once daily Atorvastatin 10 mg Tablet Discontinued 10 MG PO Daily May 06, 2018 1:00am August 31, 2018 5:45pm 24 hr desvenlafaxine succinate 100 mg extended release oral tablet (9 sources) Serotonin and Norepinephrine Reuptake Inhibitor Start: 11-08-2024 take 1 tablet by mouth once daily desvenlafaxine succinate (PRISTIQ) 100 MG 24 hr tablet Take 1 (one) tablet (100 mg total) by mouth daily . 11/08/2024 Active Start: 07-31-2024 take 1 tablet by anca [facility] every twenty-four hours Desvenlafaxine Succinate 100 mg tablet extended release 24 hr Active MG PO July 31, 2024 12:00am Complies with drug therapy Start: 05-14-2024 take 1 tablet by anc[facility] every twenty-four hours in the morning desvenlafaxine (PRISTIQ) 50 mg 24 hr tablet Take 1 tablet (50 mg total) by mouth in the morning. 05/14/2024 Active take 1 tablet by [facility] once daily desvenlafaxine succinate (PRISTIQ) 50 MG 24 hr tablet Take 1 (one) tablet (50 mg total) by mouth daily . Active donepezil hydrochloride 5 mg oral tablet (1 source) Start: 11-20-2024 take 1 tablet by mouth once daily at bedtime Donepezil 5 mg tablet Active 5 MG PO Daily at bedtime November 20, 2024 12:00am Complies with drug therapy empagliflozin 10 mg oral tablet (20 sources) Sodium-Glucose Cotransporter 2 Inhibitor Start: 07-07-2021 End: 10-19-2023 take 1 tablet by mouth once daily in the morning JARDIANCE 10 mg tablet tablet take 1 tablet by mouth every day in the morning 90 tablet 2 10/19/2023 Active take 1 tablet by [facility] once daily at breakfast empagliflozin (JARDIANCE) 25 mg tablet T chaparro 25 mg by mouth daily with breakfast. Active folic acid 1 mg oral tablet (20 sources) Start: 12-04-2023 End: 08-14-2024 take 1 tablet by mouth in the morning folic acid (FOLVITE) 1 mg tablet Take 1 tablet (1 mg total) by mouth in the morning. 12/04/2023 Active Start: 05-06-2018 End: 08-23-2023 take 1 tablet by mouth once daily Folic Acid 1 mg tablet Discontinued 1 MG PO Daily May 10, 2023 1:00am May 10, 2023 12:34pm FreeTextSi tablet Orally Once a day; Note: Source Status: Taking; Provider: Claudio furosemide 20 mg oral tablet (20 sources) Loop Diuretic Start: 05-10-2023 take 0.5 tablet by mouth once daily Furosemide 20 mg tablet Active 20 MG PO Daily May 10, 2023 1:00am FreeTextSi/2 tablet Orally daily; Note: Source Status: Taking; Refills: 1; Provider: Jered Ward Complies with drug therapy Start: 06-23-2021 End: 05-10-2023 take 1 tablet by mouth once daily Furosemide 40 mg Tablet Discontinued 40 MG PO Daily at 0800 30 30 June 23, 2021 12:00am May 10, 2023 11:26am Start: 05-09-2019 End: 05-08-2024 take 1 tablet by mouth once daily furosemide (LASIX) 20 mg tablet Indications: Essential hypertension, benign Take 1 tablet (20 mg total) by mouth daily. 90 tablet 3 05/08/2024 Active Start: 05-09-2019 take 0.5 tablet by m outh once daily Furosemide 20 MG 1/2 tablet Orally daily for 90 days Apr, Active Start: 05-09-2019 End: 06-16-2021 take 1 tablet by mouth once daily Furosemide 40 mg tablet Discontinued 40 MG PO Daily August 26, 2019 12:01pm June 16, 2021 4:48am gabapentin 300 mg oral capsule (20 sources) Anti-epileptic Agent Start: 06-02-2024 End: 09-30-2024 take 1 capsule by mouth at bedtime gabapentin (NEURONTIN) 300 MG capsule Indications: Fibromyalgia Take 1 (one) capsule (300 mg total) by mouth at bedtime . 90 capsule 1 09/02/2024 Active Start: 01-28-2024 End: 05-14-2024 take 2 capsules by mouth once daily gabapentin (Neurontin) 100 MG capsule Indications: Fibromyalgia Take 2 (two) capsules (200 mg total) by mouth nightly . 30 capsule 3 01/28/2024 05/14/2024 Discontinued (Reorder (Suppress CancelRx Message to Pharmacy)) Start: 12-04-2023 End: 12-03-2024 take 1 capsule by mouth once daily gabapentin (Neurontin) 100 MG capsule Indications: Fibromyalgia Take 1 (one) capsule (100 mg total) by mouth nightly . 30 capsule 2 12/04/2023 01/15/2024 Discontinued (Reorder (Suppress CancelRx Message to Pharmacy)) levothyroxine sodium 0.075 mg oral tablet (20 sources) l-Thyroxine Start: 10-16-2024 take 1 tablet by mouth once daily Levothyroxine 75 mcg tablet Active 0 .ROUTE .COMPLEX October 16, 2024 12:23pm TAKE 1 TABLET BY MOUTH EVERY DAY FOR 90 DAYS Complies with drug therapy Start: 09-05-2023 End: 10-16-2024 take 1 tablet by mouth once daily Levothyroxine 75 mcg tablet Discontinued 75 MCG PO Daily February 18, 2024 3:17pm October 16, 2024 12:24pm Start: 08-15-2023 End: 08-15-2023 take 1 tablet by mouth once daily Levothyroxine 88 mcg tablet Discontinued 88 MCG PO Daily August 15, 2023 2:19pm August 15, 2023 2:39pm Start: 08-15-2023 End: 09-05-2023 take 1 capsule by mouth once daily Levothyroxine 75 mcg capsule Discontinued 75 MCG PO Daily August 15, 2023 12:00am September 05, 2023 10:22am Start: 06-26-2023 End: 08-15-2023 take 1 tablet by mouth once daily Levothyroxine 88 mcg tablet Discontinued 0 .ROUTE .COMPLEX 90 June 26, 2023 8:08am August 15, 2023 2:20pm TAKE 1 TABLET BY MOUTH EVERY DAY Start: 09-06-2018 End: 06-26-2023 take 1 tablet by mouth once daily Levothyroxine (Synthroid) 88 mcg Tablet Discontinued 88 MCG PO DAILY@0630 30 September 06, 2018 12:00am June 26, 2023 8:08am Start: 12-25-2002 End: 08-23-2023 take 1 tablet by mouth once daily Levothyroxine 100 mcg Tablet Discontinued 100 MCG PO Daily May 06, 2018 1:00am September 06, 2018 2:12pm Levothyroxine So dium 88 MCG TAKE 1 TABLET BY MOUTH EVERY DAY FOR 90 DAYS for 90 Active magnesium glycinate 100 mg magnesium capsule (4 sources) Start: 08-23-2023 take 1 capsule by mouth once daily magnesium glycinate 100 mg magnesium capsule Take 1 capsule by mouth once daily. 15 capsule 1 08/23/2023 Active Start: 08-23-2023 End: 09-22-2023 take 1 capsule by mouth once daily magnesium glycinate 100 mg magnesium capsule Take 1 capsule by mouth once daily. 15 capsule 1 08/23/2023 09/22/2023 Active memantine hydrochloride 10 mg oral tablet (20 sources) Q-zjkzke-U-aspartate Receptor Antagonist Start: 08-05-2024 take 1 tablet by mouth twice daily Memantine 10 mg tablet Active 0 .ROUTE .COMPLEX 180 August 05, 2024 12:13pm TAKE 1 TABLET BY MOUTH TWICE A DAY FOR 90 DAYS Complies with drug therapy Start: 02-18-2024 End: 08-05-2024 take 1 tablet by mouth twice daily Memantine 10 mg tablet Discontinued 10 MG PO Twice daily 180 90 February 18, 2024 3:26pm August 05, 2024 12:13pm Start: 01-15-2024 End: 02-18-2024 Memantine 5 mg tablet Discon tinued 0 PO .COMPLEX 70 February 18, 2024 3:17pm February 18, 2024 3:27pm 5 mg daily x 1 week, then 5 mg twice dialy x 1 week, then 10 mg in AM and 5 mg in PM x 1 week, then 10 mg bid orally; methotrexate 2.5 mg oral tablet (20 sources) Folate Analog Metabolic Inhibitor Start: 09-02-2024 take 7 tablets by mouth every week methoTREXate (TREXALL) 2.5 MG tablet Indications: Seropositive rheumatoid arthritis of multiple joints (HCC) Take 7 (seven) tablets (17.5 mg total) by mouth once a week . 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 28 tablet 3 06/02/2024 08/14/2024 Discontinued (Reorder (Suppress CancelRx Message to Pharmacy)) Start: 01-28-2024 End: 05-14-2024 take 6 tablets by mouth every week methoTREXate (TREXALL) 2.5 MG tablet Indications: Seropositive rheumatoid arthritis of multiple joints (HCC) Take 6 (six) tablets (15 mg total) by mouth once a week . 24 tablet 3 01/28/2024 05/14/2024 Discontinued (Reorder (Suppress CancelRx Message to Pharmacy)) Start: 01-15-2024 take 10 mg by mouth every week Methotrexate Sodium Active 10 MG PO every week January 15, 2024 12:00am takes on Sunday from ,rheumatology. Start: 12-04-2023 End: 01-15-2024 take 4 tablets by mouth every week Methotrexate Sodium 2.5 mg tablet Active 10 MG PO every week January 15, 2024 12:00am takes on Sunday from ,rheumatology. Complies with drug therapy Start: 05-10-2023 End: 05-10-2023 methotrexate sodium Disconti nued PO May 10, 2023 1:00am May 10, 2023 12:35pm Start: 05-10-2023 End: 05-10-2023 methotrexate sodium Disconti nued PO May 10, 2023 12:00am May 10, 2023 11:35am Start: 02-19-2019 take 8 tablets by mo uth every week Methotrexate Sodium 2.5 MG Oral Tablet TAKE 8 TABLETS PER WEEK. Quantity: 0 Refills: 0 Ordered: 19-Feb-2019 DO Start : 19-Feb-2019 Active Start: 02-17-2019 End: 08-23-2023 take 6 tablets by mouth every week methotrexate 2.5 mg chemo tablet TAKE 6 TABLETS BY MOUTH EVERY WEEK 0 08/20/2022 05/21/2023 Discontinued (Therapy completed) Start: 05-06-2018 End: 06-03-2019 Methotrexate 2.5 mg/mL Solut ion Discontinued 0 .ROUTE .COMPLEX May 06, 2018 1:00am June 03, 2019 1:00pm 8 2.5 MG TAB ONCE WEEKLY on sunday Methotrexate Sod ium Active 24 hr metoprolol succinate 25 mg extended release oral tablet (20 sources) beta-Adrenergic Alex Start: 04-14-2024 End: 08-15-2024 take 1 tablet by mouth every twenty-four hours in the morning metoprolol succinate XL (TOPROL XL) 25 mg 24 hr tablet Indications: Paroxysmal atrial fibrillation (CMS-HCC) , Primary hypertension TAKE 1 TABLET (25 MG TOTAL) BY MOUTH IN THE MORNING 90 tablet 2 08/15/2024 Active Start: 05-10-2023 take 2 tablets by mo [facility] once daily Metoprolol Succinate 25 mg tablet extended release 24 hr Active 12.5 MG PO Daily May 10, 2023 1:00am FreeTextSi/2 tablet Orally Once a day; Note: Source Status: Decrease; Provider: Jered Tejeda Complies with drug therapy Start: 06-01-2022 [facility] metoprolol succinate (TOPROL-XL) 25 MG 24 hr tablet Take 1 (one) tablet (25 mg total) by mouth every morning . 06/01/2022 Active Start: 06-01-2022 End: 04-11-2024 take 0.5 tablet by mouth once daily Metoprolol Succinate Active 12.5 MG PO Daily May 10, 2023 1:00am FreeTextSi/2 tablet Orally Once a day; Note: Source Status: Decrease; Provider: Jered Tejeda Start: 06-08-2019 End: 08-26-2019 take 1 tablet by mouth twice daily Metoprolol Tartrate 25 mg Tablet Discontinued 25 MG PO Twice daily 60 June 08, 2019 12:00am August 26, 2019 12:00pm take 1 tablet by [facility] once daily metoprolol succinate ER (TOPROL XL) 25 mg 24 hr tablet Take 12.5 mg by mouth once daily. Active take 0.5 tablet by m outh once daily Metoprolol Succinate ER 25 MG 1/2 tablet Orally Once a day Active nitrofurantoin, [...] tablet (20 sources) Proton Pump Inhibitor Start: 10-31-2024 take 1 tablet by mouth once daily Pantoprazole 40 mg tablet,delayed release (DR/EC) Active 0 .ROUTE .COMPLEX October 31, 2024 7:32am TAKE 1 TABLET BY MOUTH EVERY DAY Complies with drug therapy Start: 02-18-2024 End: 10-31-2024 take 1 tablet by mouth once daily Pantoprazole 40 mg tablet,delayed release (DR/EC) Discontinued 40 MG PO Daily February 18, 2024 3:21pm October 31, 2024 7:32am Start: 01-07-2024 End: 02-18-2024 take 1 tablet by mouth once daily Pantoprazole 40 mg tablet,delayed release (DR/EC) Discontinued 0 .ROUTE .COMPLEX January 07, 2024 8:09am February 18, 2024 3:22pm TAKE 1 TABLET BY MOUTH EVERY DAY Start: 10-17-2023 End: 12-12-2023 take 2 tablets by mouth once daily, then take 1 tablet by mouth once daily Pantoprazole (Protonix) 40 mg tablet,delayed release (DR/EC) Discontinued 40 MG PO Twice daily 112 56 October 17, 2023 3:32pm December 12, 2023 3:19pm 2 tablets once a day for 8 weeks. Then cut back down to 1 tab daily. Start: 10-17-2023 End: 01-07-2024 take 1 tablet by mouth twice daily Pantoprazole (Protonix) 40 mg tablet,delayed release (DR/EC) Discontinued 40 MG PO Twice daily 60 December 12, 2023 3:18pm January 07, 2024 8:09am Start: 02-19-2019 End: 10-17-2023 take 1 tablet by mouth once daily Pantoprazole (Protonix) 40 mg tablet,delayed release (DR/EC) Discontinued 40 MG PO Daily May 10, 2023 1:00am July 19, 2023 10:04am FreeTextSi tablet Orally Once a day; Note: Source Status: Taking; Refills: 3; Qty: 90 Tablet; Provider: Jered Tejeda potassium chloride 20 meq powder for oral solution (20 sources) Start: 08-08-2023 End: 09-25-2024 take 1 dose by mouth in the morning potassium chloride (KLOR-CON) 20 mEq packet Take 1 packet (20 mEq total) by mouth in the morning and 1 packet (20 mEq total) before bedtime. 60 packet 6 09/26/2024 Active Start: 05-10-2023 End: 08-08-2023 Potassium Chloride (Klor-Con M20) 20 mEq tablet,ER particles/crystals Discontinued 10 MEQ PO Daily May 10, 2023 11:27am August 08, 2023 2:35pm Start: 06-23-2021 take 2 tablets by mo [facility] once daily Potassium Chloride Millie ER 20 MEQ Oral Tablet Extended Release TAKE 2 TABLET Daily Quantity: 0 Refills: 0 Ordered: 23-Jun-2021 DO Start : 23-Jun-2021 Active Start: 06-23-2021 End: 05-10-2023 Potassium Chloride (Klor-Con M20) 20 mEq Tablet,Er Particles/Crystals Discontinued 40 MEQ PO Daily 60 June 23, 2021 12:00am May 10, 2023 11:32am Start: 06-01-2021 [facility] Potassium Chloride ER 10 [...] 10 mEq by mouth once daily. Active predniSONE 5 mg oral tablet (20 sources) Start: 02-19-2019 take 0.5 tablet by mouth once daily predniSONE 5 MG Oral Tablet TAKE 0.5 TABLET Daily Quantity: 0 Refills: 0 Ordered: 19-Feb-2019 DO Start : 19-Feb-2019 Active Start: 05-16-2018 End: 08-23-2023 take 1-2 tablets by mouth once daily as needed predniSONE (DELTASONE) 5 mg tablet TAKE 1-2 TABLETS BY MOUTH EVERY DAY NEEDED 07/09/2022 Active Start: 05-06-2018 End: 06-16-2021 take 2.5 mg by mouth once daily Prednisone 5 mg Tablet Discontinued 2.5 MG PO Daily May 06, 2018 1:00am June 16, 2021 4:41am Start: 05-06-2018 End: 06-16-2021 take 2.5 mg by mouth once daily Prednisone Discontinue d 2.5 MG PO Daily May 06, 2018 1:00am June 16, 2021 4:41am take 1 tablet by anc[facility] every twenty-four hours prednisone 10 MG 1 Tablet Orally Once a day Active sertraline 100 mg oral tablet (20 sources) Serotonin Reuptake Inhibitor Start: 03-20-2023 take 1 tablet by mouth once daily sertraline (ZOLOFT) 100 mg tablet Take 1 tablet (100 mg total) by mouth nightly. 03/20/2023 Active Start: 06-16-2021 End: 06-23-2021 take 1 tablet by mouth once daily Sertraline (Zoloft) 100 mg Tablet Discontinued 100 MG PO Daily June 16, 2021 12:00am June 23, 2021 2:17pm Zoloft 50 MG Ora l Tablet TAKE 1 AND 1/2 TABLETS DAILY. Quantity: 0 Refills: 0 Ordered: 28-Apr-2021 DO Active Completed/Discontinued Medications Medication Drug Class(es) Dates Sig (Normalized) Sig (Original) acetaminophen 325 mg oral tablet (2 sources) Start: 07-09-2024 End: 07-09-2024 650 mg, Oral, Once, On Sun07/09/24 at 1100, For 1 dose, Administer 30 minutes prior to rituximab. Start: 06-25-2024 End: 06-25-2024 650 mg, Oral, Once, On Sun at 1200, For 1 dose, Administer 30 minutes prior to rituximab. alendronic acid 70 mg oral tablet (16 sources) Bisphosphonate Start: 05-06-2018 End: 06-03-2019 take 1 tablet by mouth every week Alendronate 70 mg Tablet Discontinued 70 MG PO every week May 06, 2018 1:00am June 03, 2019 12:57pm amiodarone hydrochloride 200 mg oral tablet (20 sources) Antiarrhythmic Start: 07-14-2021 take 1 tablet by mouth once daily Amiodarone HCl - 200 MG Oral Tablet TAKE 1 TABLET DAILY. Quantity: 90 Refills: 1 Ordered: 14-Jul-2021 Marty Lynn MD Start : 14-Jul-2021 Active new start Start: 06-01-2019 End: 06-08-2019 take 1 tablet by mouth once daily Amiodarone 200 mg tablet Discontinued 200 MG PO Daily June 01, 2019 12:00am June 08, 2019 3:48pm Start: 06-01-2019 End: 06-01-2019 Amiodarone 200 mg tablet Discontinued June 01, 2019 12:00am June 01, 2019 4:05pm atenolol 25 mg oral tablet (13 sources) beta-Adrenergic Alex Start: 05-06-2018 End: 05-11-2018 take 1 tablet by mouth once daily Atenolol 25 mg Tablet Discontinued 25 MG PO Daily May 06, 2018 1:00am May 11, 2018 10:02am azithromycin 250 mg oral tablet (13 sources) Macrolide Antimicrobial Start: 09-06-2018 End: 06-01-2019 take 1 tablet by mouth every twenty-four hours Azithromycin 250 mg Tablet Discontinued 250 MG PO Q24H 3 3 September 06, 2018 12:00am June 01, 2019 4:04pm busPIRone hydrochloride 15 mg oral tablet (20 sources) Start: 06-01-2019 End: 06-23-2021 take 2 tablets by mouth twice daily Buspirone 15 mg tablet Discontinued 30 MG PO Twice daily June 01, 2019 4:03pm June 23, 2021 2:17pm Start: 06-01-2019 End: 06-23-2021 take 30 mg by mouth twice daily Buspirone Discontinued 30 MG PO Twice daily June 01, 2019 4:03pm June 23, 2021 2:17pm Start: 05-20-2018 End: 06-01-2019 take 1 tablet by mouth twice daily Buspirone 15 mg Tablet Discontinued 15 MG PO Twice daily 60 September 06, 2018 12:00am June 01, 2019 4:04pm Start: 05-20-2018 End: 08-23-2023 take 1 tablet by mouth twice daily busPIRone (BUSPAR) 7.5 mg tablet Take 7.5 mg by mouth twice daily. 1 05/20/2018 08/23/2023 Discontinued carvedilol 3.125 mg oral tablet (20 sources) alpha-Adrenergic Alex, beta-Adrenergic Alex Start: 06-23-2021 End: 05-10-2023 take 1 tablet by mouth twice daily at mealtime Carvedilol 3.125 mg Tablet Discontinued 3.125 MG PO Twice daily with meals 60 June 23, 2021 12:00am May 10, [...] Platelet Inhibitor Start: 09-06-2018 End: 08-23-2023 take 1 tablet by mouth once daily Clopidogrel 75 mg Tablet Discontinued 75 MG PO Daily September 06, 2018 12:00am June 16, 2021 5:08am 24 hr dilTIAZem hydrochloride 180 mg extended release oral capsule (18 sources) Calcium Channel Alex Start: 02-19-2019 take 1 capsule by mouth once daily in the morning dilTIAZem HCl ER Beads 180 MG Oral Capsule Extended Release 24 Hour TAKE 1 CAPSULE DAILY IN THE MORNING. Quantity: 0 Refills: 0 Ordered: 19-Feb-2019 DO Start : 19-Feb-2019 Active Start: 05-10-2018 End: 06-01-2019 take 1 capsule by mouth once daily Diltiazem Hcl 120 mg Capsule,Extended Release 24hr Discontinued 120 MG PO Daily May 10, 2018 1:00am June 01, 2019 4:04pm End: 08-23-2023 take 1 tablet by mouth four times daily diltiazem (CARDIZEM) 120 mg tablet Take 120 mg by mouth four times daily. 0 08/23/2023 Discontinued diphenhydrAMINE (2 sources) Histamine-1 Receptor Antagonist Start: 07-09-2024 End: 07-09-2024 50 mg, Intravenous, Once, On Sun07/09/24 at 1100, For 1 dose, Administer 30 minutes prior to rituximab. For IV administration, give at a rate less than or equal to 25 mg/min Start: 06-25-2024 End: 06-25-2024 50 mg, Intravenous, Once, On Sun06/25/24 at 1200, For 1 dose, Administer 30 minutes prior to rituximab. For IV administration, give at a rate less than or equal to 25 mg/min ergocalciferol 1.25 mg oral capsule (6 sources) Provitamin D2 Compound Start: 02-19-2019 take 1 capsule by mouth every week Ergocalciferol 1.25 MG (93164 UT) Oral Capsule TAKE 1 CAPSULE WEEKLY. Quantity: 0 Refills: 0 Ordered: 19-Feb-2019 DO Start : 19-Feb-2019 Active ferrous sulfate 325 mg oral tablet (13 sources) Start: 06-03-2019 End: 06-16-2021 take 1 tablet by mouth once daily Ferrous Sulfate 325 mg (65 mg iron) tablet Discontinued 325 MG PO Daily June 03, 2019 12:00am June 16, 2021 5:08am hydrOXYzine pamoate 50 mg oral capsule (13 sources) Antihistamine Start: 05-11-2018 End: 06-01-2019 take 1 capsule by mouth three times daily as needed for anxiety Hydroxyzine Pamoate 50 mg Capsule Discontinued 50 MG PO Three times daily as needed for Anxiety May 11, 2018 1:00am June 01, 2019 4:04pm lamoTRIgine 150 mg oral tablet (20 sources) Mood Stabilizer, Anti-epileptic Agent Start: 06-08-2019 End: 08-26-2019 take 1 tablet by mouth once daily at bedtime Lamotrigine 25 mg Tablet Discontinued 25 MG PO Daily at bedtime June 08, 2019 12:00am August 26, 2019 12:01pm Start: 06-03-2019 End: 06-03-2019 Lamotrigine 150 mg tablet Discontinued 75 MG PO Daily at bedtime June 03, 2019 12:00am June 03, 2019 4:32pm Start: 06-03-2019 End: 08-23-2023 take 1 tablet by mouth once daily Lamotrigine (Lamictal) 150 mg Tablet Discontinued 150 MG PO Daily June 16, 2021 12:00am June 23, 2021 2:17pm Start: 06-03-2019 End: 06-03-2019 take 75 mg [...] 17-Mar-2021 Active Start: 08-26-2019 End: 05-10-2023 take 2 tablets by mouth once daily Lisinopril 2.5 mg Tablet Discontinued 5 MG PO Daily August 26, 2019 12:00am May 10, 2023 11:26am Start: 08-26-2019 End: 05-10-2023 take 5 mg by mouth once daily Lisinopril Discontinued 5 MG PO Daily August 26, 2019 12:00am May 10, 2023 11:26am Start: 02-19-2019 take 1 tablet by anca once daily Lisinopril 5 MG Oral Tablet TAKE 1 TABLET DAILY. Quantity: 90 Refills: 0 Ordered: 19-Feb-2019 DO Start : 19-Feb-2019 Active Start: 06-26-2018 End: 08-23-2023 take 1 tablet by mouth once daily lisinopril (ZESTRIL, PRINIVIL) 20 mg tablet Take 20 mg by mouth once daily. 5 06/26/2018 08/23/2023 Discontinued Start: 05-06-2018 End: 08-26-2019 take 5 mg by mouth once daily Lisinopril 20 mg Tablet Discontinued 5 MG PO Daily May 06, 2018 1:00am August 26, 2019 11:59am Start: 05-06-2018 End: 08-26-2019 take 5 mg by mouth once daily Lisinopril Discontinued 5 MG PO Daily May 06, 2018 1:00am August 26, 2019 11:59am take 0.5 tablet by m out once daily Lisinopril 5 MG 1/2 tablet Orally Once a day for 30 days Active loratadine 10 mg oral tablet (2 sources) Start: 07-09-2024 End: 07-09-2024 10 mg, Oral, Once, On Sun at 1100, For 1 dose, Administer 30 minutes prior to rituximab. Start: 06-25-2024 End: 06-25-2024 10 mg, Oral, Once, On 12/11 at 1200, For 1 dose, Administer 30 minutes prior to rituximab. LORazepam 0.5 mg oral tablet (3 sources) Benzodiazepine Start: 02-19-2019 take 1 tablet by mouth three times daily as needed LORazepam 0.5 MG Oral Tablet TAKE 1 TABLET 3 TIMES DAILY NEEDED. Quantity: 0 Refills: 0 Ordered: 19-Feb-2019 DO Start : 19-Feb-2019 Active magnesium oxide 400 mg oral tablet (20 sources) Start: 06-23-2021 End: 05-10-2023 take 1 tablet by mouth twice daily Magnesium Oxide 400 mg (241.3 mg magnesium) Tablet Discontinued 400 MG PO Twice daily 60 June 23, 2021 12:00am May 10, 2023 11:26am Magnesium Oxide Active methylPREDNISolone 125 mg injection (2 sources) Corticosteroid Start: 07-09-2024 End: 07-09-2024 125 mg, Intravenous, Once, On Sun07/09/24 at 1100, For 1 dose, Administer 30 minutes prior to rituximab. Start: 06-25-2024 End: 06-25-2024 125 mg, Intravenous, Once, O n Sun06/25/24 at 1200, For 1 dose, Administer 30 minutes prior to rituximab. Nebulizer Accessories (10 sources) Start: 09-06-2018 End: 06-16-2021 Nebulizer Accessories Discon tinued 0 .ROUTE .MEDSUPPLY 1 September 06, 2018 12:00am June 16, 2021 4:49am As directed Start: 09-06-2018 End: 06-16-2021 Nebulizer Accessories Discon tinued 0 .ROUTE .MEDSUPPLY 1 September 05, 2018 11:00pm June 16, 2021 3:49am As directed Nebulizer Accessories kit (3 sources) Start: 09-06-2018 End: 06-16-2021 Nebulizer Accessories kit Discontinued 0 .ROUTE .MEDSUPPLY September 06, 2018 12:00am June 16, 2021 4:49am As directed nitroglycerin 0.4 mg sublingual tablet (20 sources) Nitrate Vasodilator Start: 05-10-2018 End: 05-21-2023 Nitroglycerin 0.4 mg Tablet, Sublingual Discontinued 0.4 MG SUBLINGUAL every 5 to 15 minutes as needed for Chest Pain August 26, 2019 12:00am June 16, 2021 5:09am omeprazole 20 mg delayed release oral capsule (20 sources) Proton Pump Inhibitor Start: 05-11-2018 End: 06-01-2019 take 2 capsules by mouth once daily at bedtime Omeprazole 20 mg Capsule,Delayed Release(Dr/Ec) Discontinued 40 MG PO Daily at bedtime May 11, 2018 1:00am June 01, 2019 4:04pm Start: 05-11-2018 End: 06-01-2019 take 40 mg by mouth once daily at bedtime Omeprazole Discontinued 40 MG PO Daily at bedtime May 11, 2018 1:00am June 01, 2019 4:04pm Start: 04-11-2018 End: 08-23-2023 take 1 capsule by mouth twice daily Omeprazole 40 mg Capsule,Delayed Release(Dr/Ec) Discontinued 40 MG PO Twice daily May 06, 2018 1:00am May 11, 2018 10:04am Omeprazole 20 mg Capsule,Delayed Release(Dr/Ec) (1 source) Start: 05-11-2018 End: 06-01-2019 take 2 capsules by mouth once daily at bedtime Omeprazole 20 mg Capsule,Delayed Release(Dr/Ec) Discontinued 40 MG PO Daily at bedtime May 11, 2018 1:00am June 01, 2019 4:04pm riTUXimab (RITUXAN) 1,000 mg in sodium chloride 0.9 % (NS) 250 mL chemo infusion (2 sources) Start: 07-09-2024 End: 07-09-2024 1,000 mg, Intravenous, Once, On Sun07/09/24 at 1200, For 1 dose, Rituxan Administration: Dose 2+ not meeting 90min criteria: Start rate at 25 mL/hr (100 mg/hour); if there is no reaction in 30 minutes, increase the rate by 25 mL/hr (100 mg/hour) increments every 30 minutes, to a maximum rate of 100 mL/hr (400 mg/hour). Note this rituximab order is given as Day 1 and 14 every 6 months. Chemotherapy competent RN only to administer. Start: 06-25-2024 End: 06-25-2024 1,000 mg, Intravenous, Once, On Sun06/25/24 at 1230, For 1 dose, Note this rituximab order is given as Day 1 and 14 every 6 months. Rituxan Administration: Start rate at 13 mL/hr (50 mg/hour); if there is no reaction in 30 minutes, increase the rate by 13 mL/hr (50 mg/hour) increments every 30 minutes, to a maximum rate of 100 mL/hr (400 mg/hour). Chemotherapy competent RN only to administer. rOPINIRole 0.5 mg oral tablet (20 sources) Nonergot Dopamine Agonist Start: 09-06-2018 End: 06-01-2019 take 1 tablet by mouth once daily at bedtime Ropinirole 0.5 mg Tablet Discontinued 0.5 MG PO Daily at bedtime September 06, 2018 12:00am June 01, 2019 4:04pm Start: 05-06-2018 End: 08-31-2018 take 1 tablet by mouth once daily at bedtime Ropinirole 0.5 mg Tablet Discontinued 0.5 MG PO Daily at bedtime [...] day Active Sod Sulf-Pot Chloride-Mag Rousseau lf (4 sources) Start: 10-17-2023 End: 11-14-2023 Sod Sulf-Pot [...] dose at 9pm the evening before colonoscopy. Sod Sulf-Pot Chloride-Mag Rousseau lf (Sutab) 1.479-0.188- 0.225 gram tablet (11 sources) Start: 10-17-2023 End: 11-14-2023 Sod Sulf-Pot [...] dose at 9pm the evening before colonoscopy. 1000 ml sodium chloride 9 mg/ml injection (2 sources) Start: 07-09-2024 End: 07-09-2024 take 25 mL intravenously every hour 25 mL/hr, Intravenous, Continuous, Starting on Sun07/09/24 at 1100 Start: 06-25-2024 End: 06-25-2024 Starting on Sun06/25/24 at 11 20, For 1 dose, Noris [place]on: cabinet override sotalol hydrochloride 120 mg oral tablet (18 sources) Antiarrhythmic Start: 04-29-2021 take 0.5 tablet [...] : 23-Jun-2021 Active Start: 06-23-2021 End: 05-10-2023 Spironolactone 25 mg Tablet Discontinued 12.5 MG PO Daily June 23, 2021 12:00am May 10, 2023 11:27am Start: 06-23-2021 End: 05-10-2023 take 12.5 mg by mouth once daily Spironolactone Discontinued 12.5 MG PO Daily June 23, 2021 12:00am May 10, 2023 11:27am ticagrelor 90 mg oral tablet (13 sources) Start: 05-10-2018 End: 08-31-2018 take 1 tablet by mouth twice daily Ticagrelor (Brilinta) 90 mg Tablet Discontinued 90 MG PO Twice daily May 10, 2018 1:00am August 31, 2018 [...] mL intramuscularly every 4 weeks. 1 mL 11 09/05/2018 08/23/2023 Discontinued warfarin sodium 5 mg oral tablet (20 sources) Vitamin K Antagonist Start: 02-19-2019 take 1 tablet by mouth once daily Warfarin Sodium 5 MG Oral Tablet TAKE 1 TABLET DAILY DIRECTED by [facility] Quantity: 0 Refills: 0 Ordered: 19-Feb-2019 DO Start : 19-Feb-2019 Active Start: 08-31-2018 End: 05-10-2023 Warfarin (Coumadin) 2 mg tab let Discontinued 1 MG PO As Directed August 31, 2018 12:00am May 10, 2023 11:28am as directed by Agency [facility] Start: 06-11-2018 End: 08-23-2023 warfarin (COUMADIN) 2 mg tab let TAKE 1/2 TABLET BY MOUTH ON MONDAYS AND 1 TABLET ALL OTHER DAYS OR DIRECTED PER [facility]IN CLINIC 3 06/11/2018 08/23/2023 Discontinued Start: 05-10-2018 End: 08-31-2018 take 1 tablet by mouth once daily Warfarin (Coumadin) 5 mg Tablet Discontinued 5 MG PO Daily at 1700 30 30 May 10, 2018 1:00am December 05, 2018 12:00am August 31, 2018 5:48pm Problems Active Problems Problem Classification Problem Date Documented Da te Episodic/Chronic Abdominal pain (20 sources) Left sided abdominal pain; 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: [Unspecified abdominal pain] Onset: 3 05-07-2018 Episodic Acute and unspecified renal failure (2 sources) Injury of kidney; 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: [Acute kidney failure, unspecified] 06-20-2021 Episodic Acute cerebrovascular disease (5 sources) Cerebrovascular accident; 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: [Cerebral infarction, unspecified] Onset: 4 12-10-2023 Chronic Anxiety disorders (20 sources) Anxiety; 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: [Anxiety disorder, unspecified] Onset: 0 05-06-2018 Chronic Asthma (17 sources) Asthma; 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: [Unspecified asthma, uncomplicated] Onset: 0 05-10-2023 Chronic Cardiac dysrhythmias (20 sources) Paroxysmal atrial [...] sources) Coronary atherosclerosis; 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: [Coronary atherosclerosis of [place] coronary artery] Onset: 2 05-10-2018 Chronic Coronary atherosclerosis and other heart disease (18 sources) Patient post percutaneous transluminal coronary angioplasty; 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: [Percutaneous transluminal coronary angioplasty status] 05-10-2023 Episodic Comment on above: LAD 2018; Deficiency and other anemia (20 sources) Iron deficiency anemia; 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: [Iron deficiency anemia, unspecified] 05-10-2023 Episodic Deficiency and other anemia (1 source) Iron deficiency anemia, unspecified; 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: [Iron deficiency anemia, unspecified] 07-31-2024 Episodic Disorders of lipid metabolism (20 sources) Dyslipidemia; 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: [Other and unspecified hyperlipidemia] Onset: 0 08-31-2018 Chronic Esophageal disorders (20 sources) Gastroesophageal reflux disease; 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: [Gastro-esophageal reflux disease without esophagitis] Onset: 0 Chronic Essential hypertension (20 sources) Benign essential hypertension; 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: [Benign essential hypertension] Onset: 0 Resolved: 2 Chronic Fluid and electrolyte disorders (20 sources) Metabolic acidosis; 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: [Metabolic acidosis] 09-01-2018 Episodic Genitourinary symptoms and ill-defined conditions (2 sources) Dysuria Episodic Hypertension with complications and secondary hypertension (1 source) Hypertensive heart disease with heart failure; 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: [HTN HEART DISEASE W/HEART FAIL] Onset: 3 Chronic Malaise and fatigue (20 sources) Fatigue; 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: [Chronic fatigue, unspecified] Chronic Malaise and fatigue (16 sources) Asthenia; 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: [Weakness] Onset: 4 06-03-2019 Episodic Mood disorders (20 sources) Bipolar II disorder; 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: [Bipolar II disorder] Onset: 1 Resolved: 1 Chronic Nausea and vomiting (16 sources) Nausea; 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: [Nausea] Episodic Non-Hodgkin`s lymphoma (6 sources) Diffuse non-Hodgkin's lymphoma, large cell (clinical); 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: [Diffuse large B-cell lymphoma, extranodal and solid organ sites] Onset: 4 08-23-2023 Chronic Occlusion or stenosis of precerebral arteries (5 sources) Carotid artery occlusion; 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: [Occlusion and stenosis of unspecified carotid artery] Onset: 3 07-13-2003 Chronic Osteoarthritis (1 source) Unspecified osteoarthritis, unspecified site; 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: [UNSPECIFIED OSTEOARTHRITIS UNS SITE] Onset: 3 Chronic Osteoporosis (20 sources) Adult idiopathic generalized osteoporosis; 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: [Other osteoporosis without current pathological fracture] Onset: 0 05-10-2023 Chronic Other aftercare (17 sources) Drug therapy finding; 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: [Long-term (current) use of other medications] Episodic Other aftercare (10 sources) Encounter for therapeutic drug level monitoring; 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: [Encounter for therapeutic drug monitoring] Onset: 1 Resolved: 1 Episodic Other aftercare (3 sources) Polypharmacy ; 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: [Other custodial (current) drug therapy] 09-01-2018 Episodic Other aftercare (5 sources) Long-term current use of drug therapy; 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: [Other termite control representative (current) drug therapy] 01-15-2024 Episodic Other and ill-defined heart disease (7 sources) Systolic dysfunction; 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: [Heart disease, unspecified] Chronic Other and ill-defined heart disease (3 sources) Left ventricular systolic dysfunction; 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: [Heart disease, unspecified] 06-18-2021 Chronic Other circulatory disease (13 sources) History of cardiovascular surgery; 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: [Presence of other cardiac implants and grafts] Onset: 2 08-21-2023 Chronic Other circulatory disease (2 sources) Low blood pressure; 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: [Hypotension, unspecified] 06-20-2021 Episodic Other circulatory disease (4 sources) History of transient ischemic attack; 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: [Personal history of transient ischemic attack (TIA), and cerebral infarction without residual deficits] 01-02-2024 Episodic Other connective tissue disease (2 sources) Rhabdomyolysis; 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: [Rhabdomyolysis] 09-01-2018 Episodic Other connective tissue disease (2 sources) Muscle pain; 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: [Myalgia, unspecified site] 06-02-2024 Episodic Other disorders of stomach and duodenum (1 source) Cyclical vomiting syndrome; 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: [Cyclical vomiting syndrome unrelated to migraine] 05-10-2023 Episodic Other disorders of stomach and duodenum (1 source) Cyclical vomiting syndrome unrelated to migraine; 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: [Persistent vomiting] 05-10-2023 Episodic Other gastrointestinal disorders (20 sources) Pharyngeal dysphagia; 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: [Dysphagia, pharyngeal phase] 05-10-2023 Episodic Other gastrointestinal disorders (2 sources) Dysphagia; 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: [Dysphagia, unspecified] 05-10-2023 Episodic Other gastrointestinal disorders (5 sources) Dysphagia, pharyngeal phase; 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: [Dysphagia, pharyngeal phase] 08-08-2023 Episodic Other gastrointestinal disorders (1 source) Dysphagia, unspecified; 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: [Dysphagia, unspecified] 12-12-2023 Episodic Other hematologic conditions (4 sources) Raised cardiac enzyme or marker; 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: [Other specified abnormalities of plasma proteins] 08-31-2018 Episodic Other hereditary and degenerative nervous system conditions (2 sources) Mild cognitive disorder ; 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: [Mild cognitive impairment, so stated] 01-02-2024 Chronic Other hereditary and degenerative nervous system conditions (6 sources) Impaired cognition; 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: [Mild cognitive impairment, so stated] 01-15-2024 Chronic Other hereditary and degenerative nervous system conditions (2 sources) Mild cognitive impairment, so stated; 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: [Mild cognitive impairment, so stated] 01-15-2024 Chronic Other liver diseases (14 sources) Enzyme level - finding; 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: [Elevated transaminase measurement] 06-03-2019 Episodic Other liver diseases (3 sources) Cardiac enzymes abnormal; 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: [Abnormal levels of other serum enzymes] 09-02-2018 Episodic Other lower respiratory disease (3 sources) Hypoxia; 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: [Hypoxemia] 06-16-2021 Episodic Other lower respiratory disease (1 source) Dyspnea, unspecified; 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: [Other respiratory abnormalities] 05-10-2023 Episodic Other nervous system disorders (4 sources) Chronic pain; 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: [Other chronic pain] 01-02-2024 Chronic Other nervous system disorders (5 sources) Metabolic encephalopathy; 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: [Metabolic encephalopathy] Onset: 4 12-10-2023 Chronic Other nervous system disorders (4 sources) Word finding difficulty ; 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: [Other speech disturbances] 01-02-2024 Episodic Other nervous system disorders (7 sources) Tremor; 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: [Tremor, unspecified] Onset: 4 12-10-2023 Episodic Other nervous system disorders (2 sources) Shuffling gait; 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: [Other abnormalities of gait and mobility] 12-12-2023 Episodic Other nervous system disorders (1 source) Impairment of balance; 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: [Other abnormalities of gait and mobility] 11-20-2024 Episodic Other nutritional; endocrine; and metabolic disorders [...] Chronic Other nutritional; endocrine; and metabolic disorders (20 sources) Abnormal weight loss; 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: [Abnormal weight loss] Onset: 4 08-23-2023 Episodic Ana-; endo-; and myocarditis; cardiomyopathy (except that caused by tuberculosis or sexually transmitted disease) (1 source) Cardiomyopathy Onset: 5 Chronic Pneumonia (except that caused by tuberculosis or sexually transmitted disease) (4 sources) Community acquired pneumonia; 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: [Pneumonia, unspecified organism] 08-31-2018 Episodic Residual codes; unclassified (6 sources) Tobacco user; 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: [Tobacco use] 06-18-2021 Episodic Residual codes; unclassified (8 sources) Acute confusion; 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: [Disorientation, unspecified] Onset: 4 09-04-2018 Episodic Residual codes; unclassified (3 sources) Other amnesia; 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: [Memory loss] 11-14-2023 Episodic Residual codes; unclassified (7 sources) Confusional state; 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: [Disorientation, unspecified] Onset: 4 12-10-2023 Episodic Residual codes; unclassified (2 sources) Amnesia; 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: [Other amnesia] 12-12-2023 Episodic Rheumatoid arthritis and related disease (20 [...] [Hypothyroidism, unspecified] Onset: 0 Resolved: 2 Chronic Unclassified (1 source) Longstanding persistent atrial fibrillation; 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: [Longstanding persistent atrial fibrillation] Onset: 5 Past or Other Problems Problem Classification Problem Date Documented Date Episodic/Chronic Deficiency and other anemia (16 sources) Anemia; 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: [Anemia, unspecified] Onset: 10-27-2019 10-27-2019 Episodic Immunizations and screening for infectious disease (5 sources) Patient encounter status; 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: [Encounter for screening for other viral diseases] Onset: 06-02-2024 01-28-2024 Episodic Non-Hodgkin`s lymphoma (19 sources) History of non-Hodgkins lymphoma; 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: [Personal history of non-Hodgkin lymphomas] Onset: 12-04-2023 01-14-2024 Episodic Other aftercare (3 sources) Other termite control representative (current) drug therapy; 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: [OTH MEDICAL INFORMATION OFFICER CURRENT DRUG THERAPY] Onset: 07-02-2022 Episodic Other aftercare (1 source) termite control representative (current) use of anticoagulants; 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: [MEDICAL INFORMATION OFFICER CURRNT USE ANTICOAGULANTS] Onset: 10-17-2021 Episodic Other connective tissue disease (19 sources) Fibromyalgia; 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: [Fibromyalgia] Onset: 12-04-2023 01-14-2024 Episodic Other connective tissue disease (1 source) Fibromyalgia; 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: [Fibromyalgia] Onset: 12-04-2023 Episodic Other nervous system disorders (16 sources) Dysphasia; 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: [Dysphasia] Onset: 10-27-2019 10-27-2019 Episodic Other nutritional; endocrine; and metabolic disorders (4 sources) Abnormal weight loss; 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: [Loss of weight] Onset: 08-23-2023 05-10-2023 Episodic Other screening for suspected conditions (not mental disorders or infectious disease) (20 sources) Prolonged QT interval; 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: [Nonspecific abnormal electrocardiogram [ECG] [EKG]] Onset: 04-22-2003 Resolved: 01-26-2021 Episodic Residual codes; unclassified (16 sources) Edema of lower extremity; 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: [Localized edema] Onset: 10-27-2019 10-27-2019 Episodic Unclassified (4 sources) Well adult; 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: [Full-term infant] 08-08-2023 Results Test Name Value Interpretation Reference Range Facility Basophils Auto (Bld) [#/Vol] Ordered By: Ed Lawton on 09-23-2024 Basophils (Bld) [#/Vol] 0.0 10 3/uL 0.0-0.1 [facility] Basophils/100 WBC Auto (Bld) Ordered By: Ed Lawton on 09-23-2024 Basophils/100 WBC (Bld) 0.5 % 0.2-2.0 [facility] Cholesterol in LDL Calc [Mas s/Vol]Ordered By: Ed Lawton on 09-23-2024 Cholesterol in LDL [Mass/Vol] 71.4 mg/dL [facility] Comment on above: <100 mg/dl [id number] 0-129 mg/dl NEAR OR ABOVE [id number] mg/dl BORDERLINE [id number] mg/dl HIGH>190 mg/dl VERY HIGH Cholesterol in VLDL Calc [Ma ss/Vol]Ordered By: Ed Lawton on 09-23-2024 Cholesterol in VLDL [Mass/Vol] 18.6 mg/dL [facility] Eosinophils/100 WBC Auto (Bl d)Ordered By: Ed Lawton on 09-23-2024 Eosinophils/100 WBC (Bld) 2.1 % 0.9-7.0 [facility] [facility] Erythrocyte distribution wid th Auto (RBC) [Ratio]Ordered By: Ed Lawton on 09-23-2024 Erythrocyte distribution width (RBC) [Ratio] 16.0 % High 11.0-15.0 [facility] Globulin Calc (S) [Mass/Vol] Ordered By: Ed Lawton on 09-23-2024 Globulin (S) [Mass/Vol] 4.5 g/dL [facility] Glomerular filtration rate ( GFR) estimation in non- AmericanOrdered By: Ed Lawton on 09-23-2024 GFR/1.73 sq M.predicted among non-blacks MDRD (S/P/Bld) [Vol rate/Area] mL/min/{1.73_m2} >=60 mL/min/1.7 3m 2 [facility] Hematocrit Auto (Bld) [Volum e fraction]Ordered By: Ed Lawton on 09-23-2024 Hematocrit (Bld) [Volume fraction] 39.6 % 36.0-48.0 [facility] Hemoglobin [Mass/volume] in BloodOrdered By: Ed Lawton on 09-23-2024 Hemoglobin (Bld) [Mass/Vol] 12.9 g/dL 12.0-16.0 [facility] Laboratory - Chemistry and C hemistry - challengeOrdered By: Ed Lawton on 09-23-2024 Albumin [Mass/Vol] 3.1 g/dL Low 3.4-5.0 [facility] ALP [Catalytic activity/Vol] 133 U/L High 46-116 [facility] ALT [Catalytic activity/Vol] 22 U/L 14-59 [facility] AST [Catalytic activity/Vol] 71 U/L High 15-37 [facility] Bilirubin [Mass/Vol] 0.7 mg/dL 0.2-1.[address] [facility] Calcium [Mass/Vol] 9.5 mg/dL 8.5-10.1 [facility] Chloride [Moles/Vol] 97 mmol/L Low 98-[address] [facility] Cholesterol [Mass/Vol] 143 mg/dL <=200 [facility] Cholesterol in HDL [Mass/Vol] 53 mg/dL 40-60 [facility] Comment on above: > or =60 mg/dl - LOW CARDIOVASCULAR RISK<40 mg/dl - HIGH CARDIOVASCULAR RISK CO2 [Moles/Vol] 35.8 mmol/L High 21.0-32.0 [facility] Creatinine [Mass/Vol] 0.93 mg/dL 0.55-1.02 [facility] GFR/1.73 sq M.predicted MDRD (S/P/Bld) [Vol rate/Area] mL/min/{1.73_m2} >=60 mL/min/1.7 3m 2 [facility] Glucose [Mass/Vol] 90 mg/dL 74-106 [facility] Magnesium [Mass/Vol] 2.0 mg/dL 1.8-2.[address] [facility] Potassium [Moles/Vol] 2.8 mmol/L Critically low 3.5-5.1 [facility] Protein [Mass/Vol] 7.6 g/dL 6.4-8.2 [facility] Sodium [Moles/Vol] 140 mmol/L 136-145 [facility] Triglyceride [Mass/Vol] 93 mg/dL <=150 [facility] TSH Qn 0.586 m[IU]/L 0.358-3.74 0 [facility] Urea nitrogen [Mass/Vol] 11.0 mg/dL 7.0-18.0 [facility] Urea nitrogen/Creatinine [Mass ratio] 11.8 mg/mg [facility] Laboratory - Hematology and Cell countsOrdered By: Ed Lawton on 09-23-2024 Immature granulocytes/100 WBC (Bld) 0.3 % 0.0-0.5 [facility] Leukocytes [#/volume] correc arin for nucleated erythrocytes in Blood by Automated counOrdered By: Ed Lawton on 09-23-2024 WBC corrected for nucl RBC Auto (Bld) [#/Vol] 7.5 10 3/uL 4.0-11.0 [facility] Lymphocytes Auto (Bld) [#/Vo l]Ordered By: Ed Lawton on 09-23-2024 Lymphocytes (Bld) [#/Vol] 2.2 10 3/uL 1.2-3.8 [facility] Lymphocytes/100 WBC Auto (Bl d)Ordered By: Ed Lawton on 09-23-2024 Lymphocytes/100 WBC (Bld) 29.7 % 20.5-60.0 [facility] MCH Auto (RBC) [Entitic mass ]Ordered By: Ed Lawton on 09-23-2024 MCH (RBC) [Entitic mass] 31.0 pg 26.7-34.0 [facility] MCHC Auto (RBC) [Mass/Vol]Or dered By: Ed Lawton on 09-23-2024 MCHC (RBC) [Mass/Vol] 32.6 g/dL 29.9-35.2 [facility] MCV Auto (RBC) [Entitic vol] Ordered By: Ed Lawton on 09-23-2024 MCV (RBC) [Entitic vol] 95.2 fL 81.0-99.0 [facility] Monocytes Auto (Bld) [#/Vol] Ordered By: Ed Lawton on 09-23-2024 Monocytes (Bld) [#/Vol] 0.4 10 3/uL 0.3-0.8 [facility] Monocytes/100 WBC Auto (Bld) Ordered By: Ed Lawton on 09-23-2024 Monocytes/100 WBC (Bld) 5.9 % 1.7-12.0 [facility] Neutrophils Auto (Bld) [#/Vo l]Ordered By: Ed Lawton on 09-23-2024 Neutrophils (Bld) [#/Vol] 4.6 10 3/uL 1.4-6.5 [facility] Neutrophils/100 WBC Auto (Bl d)Ordered By: Ed Lawton on 09-23-2024 Neutrophils/100 WBC (Bld) 61.5 % 43.0-75.0 [facility] No Panel InformationOrdered By: Ed Lawton on 09-23-2024 Eosinophils # (Auto) 0.2 10 3/uL 0.0-0.7 [facility] Immature Granulocyte # (Auto) 0.02 10 3/uL 0.00-0.03 [facility] Platelet mean volume Auto (B ld) [Entitic vol]Ordered By: Ed Lawton on 09-23-2024 Platelet mean volume (Bld) [Entitic vol] 10.4 fL 9.5-13.5 [facility] Platelets Auto (Bld) [#/Vol] Ordered By: Ed Lawton on 09-23-2024 Platelets (Bld) [#/Vol] 346 10 3/uL 150-450 [facility] RBC Auto (Bld) [#/Vol]Ordere d By: Ed Lawton on 09-23-2024 RBC (Bld) [#/Vol] 4.16 10 6/uL Low 4.20-5.40 [facility] Serum or plasma albumin/glob ulin mass ratioOrdered By: Ed Lawton on 09-23-2024 Albumin/Globulin [Mass ratio] 0.7 {ratio} [facility] Serum or plasma anion gap de terminationOrdered By: Ed Lawton on 09-23-2024 Anion gap [Moles/Vol] 10.0 mmol/L [facility] Serum or plasma total choles terol/high density lipoprotein (HDL) cholesterol mass ratOrdered By: Ed Lawton on 09-23-2024 Cholesterol.total/Chol esterol in HDL [Mass ratio] 2.7 {ratio} [facility] Comment on above: 3.3 - 4.4 LOW RISK4. 4 - 7.1 AVERAGE RISK7.1 - 11.0 MODERATE RISK>11.0 HIGH RISK MM screening mammo BI w/CADo n 09-10-2024 MM screening mammo BI w/CAD [facility] [address] [place] [address] Mammography Report Signed Patient: Arian Fritz MR#: [id number] : 1960 Acct:[id number] Age/Sex: 64 / F Adm Date: 09/10/24 Loc: [place] Room: Type: [facility] CLI Attending Dr: Ed Lawton DO Ordering Provider: Ed Lawton DO Date of Service: 09/10/24 Procedure(s): MM screening mammo BI w/CAD Accession Number(s): ([id number]) MM/MM screening mammo BI w/CAD: Z12.31 - [...] mammogram. Impression dictated by: Gary Welch Jr., D.O. 09/10/2024 2:00 PM Dictation Location: [facility] Dictated By: Gary Welch Jr, DO 09/10/24 1400 Signed By: 09/10/24 1400 Normal [facility] Mammography reportOrdered By : Gary Welch on 09-10-2024 Diagnostic imaging study [facility] [address] [place] [address] Mammography Report Signed Patient: Arian Fritz MR#: [id number] : 1960 Acct:[id number] Age/Sex: 64 / F Adm Date: 5 Loc: [place] Room: Type: [facility] Attending Dr: Ed Lawton DO Ordering Provider: Ed Lawton DO Date of Service: 09/10/24 Procedure(s): MM screening mammo BI w/CAD Accession Number(s): ([id number]) MM/MM screening mammo BI w/CAD: Z12.31 - Encounter for screening mammogram for malignant ... Copies to: Ed Lawton, ~ CLINICAL DATA: Screening for malignancy. SCREENING MAMMOGRAM - FULL FIELD DIGITAL WITH TOMOSYNTHESIS AND CAD COMPARISON:Mammograms dating back to 2010 Tomosynthesis craniocaudal and mediolateral oblique views of both breasts were obtained using low-dose digital technique. This examination was reviewed with [...] mammogram. Impression dictated by: Gary Welch Jr., Bill 09/10/2024 2:00 PM Dictation Location: [facility] Dictated By: Gary Welch Jr, DO 09/10/24 1400 Signed By: 09/10/[address] [facility] 09-03-2024 ALT [Catalytic activity/Vol] 10 U/L Normal 6-29 [facility] Comment on above: Performed By: #### 8 09, 822, 823, 6399, 375 #### [facility] [address], [address] [place], [place] [id number] Head Lineman: Vel Ketih MD ALT [Catalytic activity/Vol] 10 U/L 6 - 29 U/L [facility] Shashank 09-03-2024 AST [Catalytic activity/Vol] 9 U/L Low 10-35 [facility] Comment on above: Performed By: #### 8 09, 822, 823, 6399, 375 #### [facility] [address], [address] [place] [phone] Head Lineman: Vel Keith MD AST [Catalytic activity/Vol] 9 U/L Low 10 - 35 U/L [facility] AST [Catalytic activity/Vol] on 09-03-2024 Interpretation and review of laboratory results Abnormal [facility] CBC (INCLUDES DIFF/PLT)on ABSOLUTE BAND NEUTROPHILS Normal [facility] Comment on above: Performed By: #### 8 09, 822, 823, 6399, 375 #### [facility] [place] [address] Head Lineman: Vel Keith MD ABSOLUTE BASOPHILS Normal [facility] Comment on above: Performed By: #### 8 09, 822, 823, 6399, 375 #### [facility] [place] [address] Head Lineman: Vel Keith MD ABSOLUTE BLASTS Normal [facility] Comment on above: Performed By: #### 8 09, 822, 823, 6399, 375 #### [facility] [place] [address] Head Lineman: Vel Keith MD ABSOLUTE EOSINOPHILS [facility] Comment on above: Performed By: #### 8 09, 822, 823, 6399, 375 #### [facility] [place] [address] Head Lineman: Vel Keith MD ABSOLUTE LYMPHOCYTES [facility] Comment on above: Performed By: #### 8 09, 822, 823, 6399, 375 #### [facility] [place] [address] Head Lineman: Vle Keith MD ABSOLUTE METAMYELOCYTES Normal [facility] Comment on above: Performed By: #### 8 09, 822, 823, 6399, 375 #### [facility] [place] [address] Head Lineman: Vel Keith MD ABSOLUTE MONOCYTES Normal [facility] Comment on above: Performed By: #### 8 09, 822, 823, 6399, 375 #### [facility] of [address] [phone] Head Lineman: Vel Keith MD ABSOLUTE MYELOCYTES Normal [facility] Comment on above: Performed By: #### 8 09, 822, 823, 6399, 375 #### [facility] of [place] [address] [address] , [address] [place] [address] Head Lineman: Vel Keith MD ABSOLUTE NEUTROPHILS [facility] Comment on above: Performed By: #### 8 09, 822, 823, 6399, 375 #### [facility] [place] [address] [address] , [address] [place] [address] Head Lineman: Vel Keith MD ABSOLUTE NUCLEATED RBC Normal [facility] Comment on above: Performed By: #### 8 09, 822, 823, 6399, 375 #### [facility] of [address] [place] [address] Head Lineman: Vel Keith MD ABSOLUTE PROMYELOCYTES Normal [facility] Comment on above: Performed By: #### 8 09, 822, 823, 6399, 375 #### [facility] [place] [address] [address] , [address] [place] [address] Head Lineman: Vel Keith MD BAND NEUTROPHILS Normal [facility] Comment on above: Performed By: #### 8 09, 822, 823, 6399, 375 #### [facility] [place] [address] [address] [place] [address] Head Lineman: Vel Keith MD BASOPHILS Normal [facility] Comment on above: Performed By: #### 8 09, 822, 823, 6399, 375 #### [facility] [place] [address] [address] , [address] [place] [address] Head Lineman: Vel Keith MD BLASTS Normal [facility] Comment on above: Performed By: #### 8 09, 822, 823, 6399, 375 #### [facility] [place] [address] [address] , [address] [place] [address] Head Lineman: Vel Keith MD COMMENT(S) Normal [facility] Comment on above: Performed By: #### 8 09, 822, 823, 6399, 375 #### [facility] [place] [address], [address] [place] [address] Head Lineman: Vel Keith MD [facility] Normal [facility] Comment on above: Performed By: #### 8 09, 822, 823, 6399, 375 #### [facility] [place] [address], [address] [place] [address] Head Lineman: Vel Keith MD [facility] Normal [facility] Comment on above: Performed By: #### 8 09, 822, 823, 6399, 375 #### [facility] [place] [address] [address] [place] [address] Head Lineman: Vel Keith MD [facility] Normal [facility] Comment on above: Performed By: #### 8 09, 822, 823, 6399, 375 #### [facility] [place] [address], [address] [place] [address] Head Lineman: Vel Keith MD [facility] Normal [facility] Comment on above: Performed By: #### 8 09, 822, 823, 6399, 375 #### [facility] [place] [address] [address] [place] [address] Head Lineman: Vel Keith MD [facility] Normal [facility] Comment on above: Performed By: #### 8 09, 822, 823, 6399, 375 #### [facility] [address], [address] [place] [address] Head Lineman: Vel Keith MD [facility] Normal [facility] Comment on above: Performed By: #### 8 09, 822, 823, 6399, 375 #### [facility] [address] [address] Head Lineman: Vel Keith MD [facility] Normal [facility] Comment on above: Performed By: #### 8 09, 822, 823, 6399, 375 #### [facility] [address], [address] [place] [address] Head Lineman: Vel Keith MD METAMYELOCYTES Normal [facility] Comment on above: Performed By: #### 8 09, 822, 823, 6399, 375 #### [facility] [address], [address] [place] [address] Head Lineman: Vel Keith MD MONOCYTES Normal [facility] Comment on above: Performed By: #### 8 09, 822, 823, 6399, 375 #### [facility] [place] [address], [address] [place] [address] Head Lineman: Vel Keith MD MPV Normal [facility] Comment on above: Performed By: #### 8 09, 822, 823, 6399, 375 #### [facility] [place] [address] [address] , [address] [place] [address] Head Lineman: Vel Keith MD MYELOCYTES Normal [facility] Comment on above: Performed By: #### 8 09, 822, 823, 6399, 375 #### [facility] [place] [address], [address] [place] [address] Head Lineman: Vel Keith MD NEUTROPHILS Normal [facility] Comment on above: Performed By: #### 8 09, 822, 823, 6399, 375 #### [facility] [place] [address], [address] [place] [address] Head Lineman: Vel Keith MD NUCLEATED RBC Normal [facility] Comment on above: Performed By: #### 8 09, 822, 823, 6399, 375 #### [facility] [place] [address], [address] [place] [address] Head Lineman: Vel Keith MD PLATELET COUNT Normal [facility] Comment on above: Performed By: #### 8 09, 822, 823, 6399, 375 #### [facility] [address] , [address] [place] [address] Head Lineman: Vel Keith MD PROMYELOCYTES Normal [facility] Comment on above: Performed By: #### 8 09, 822, 823, 6399, 375 #### [facility] of [address], [address] [place] [address] Head Lineman: Vel Keith MD RDW Normal [facility] Comment on above: Performed By: #### 8 09, 822, 823, 6399, 375 #### [facility] [place] [address] Head Lineman: Vel Keith MD REACTIVE LYMPHOCYTES [facility] Comment on above: Performed By: #### 8 09, 822, 823, 6399, 375 #### [facility] [place] [address] Head Lineman: Vel Keith MD RED BLOOD CELL COUNT [facility] Comment on above: Performed By: #### 8 09, 822, 823, 6399, 375 #### [facility] [place] [address] Head Lineman: Vel Keith MD WHITE BLOOD CELL COUNT Normal [facility] Comment on above: Performed By: #### 8 09, 822, 823, 6399, 375 #### [facility] [place] [address] Head Lineman: Vel Keith MD CBC and Differentialon 09-03 Basophils (Bld) [#/Vol] 53 10*3/uL [facility] Basophils/100 WBC (Bld) 0.7 % [facility] Eosinophils (Bld) [#/Vol] 120 10*3/uL [facility] Eosinophils/100 WBC (Bld) 1.6 % [facility] Erythrocyte distribution width (RBC) [Ratio] 15.6 % High 11.0 - 15.0 % [facility] Hematocrit (Bld) [Volume fraction] 41.3 % 35.0 - 45.0 % [facility] Hemoglobin (Bld) [Mass/Vol] 13.3 g/dL 11.7 - 15.5 g/dL [facility] Lymphocytes (Bld) [#/Vol] 2235 10*3/uL [facility] Lymphocytes/100 WBC (Bld) 29.8 % [facility] MCH (RBC) [Entitic mass] 30.8 pg 27.0 - 33.0 pg [facility] MCHC (RBC) [Mass/Vol] 32.2 g/dL 32.0 - 36.0 g/dL [facility] Comment on above: For adults, a slight decrease in the calculated MCHC value (in the range of 30 to 32 g/dL) is most likely not clinically significant; however, it should be interpreted with caution in correlation with other red cell parameters and the patient's clinical condition. MCV (RBC) [Entitic vol] 95.6 fL 80.0 - 100.0 fL [facility] Monocytes (Bld) [#/Vol] 450 10*3/uL [facility] Monocytes/100 WBC (Bld) 6 % [facility] Neutrophils (Bld) [#/Vol] 4643 10*3/uL [facility] Neutrophils/100 WBC (Bld) 61.9 % [facility] Platelet mean volume (Bld) [Entitic vol] 10.7 fL 7.5 - 12.5 fL [facility] Platelets (Bld) [#/Vol] 417 10*3/uL High [facility] RBC (Bld) [#/Vol] 4.32 10*6/uL [facility] ealth WBC (Bld) [#/Vol] 7.5 10*3/uL [facility] CREATININEon 09-03-2024 Creatinine [Mass/Vol] 0.80 mg/dL Normal 0.50-1.05 [facility] [employer] Comment on above: Performed By: #### 8 09, 822, 823, 6399, 375 #### [facility] [address], [address] [place] [phone] Head Lineman: Vel Keith MD GFR/1.73 sq M.predicted among non-blacks MDRD (S/P/Bld) [Vol rate/Area] 82 mL/min/{1.73_m2} Normal > OR = 60 [facility] Comment on above: Performed By: #### 8 09, 822, 823, 6399, 375 #### [facility] [address], [address] [place] [phone] Head Lineman: Vel Keith MD Creatinine [Mass/Vol]on 08-17 GFR/1.73 sq M.predicted among non-blacks MDRD (S/P/Bld) [Vol rate/Area] 82 mL/min/{1.73_m2} > OR = 60 mL/min/1.7 2 [facility] Creatinine, serumon 09-04-19 Creatinine [Mass/Vol] 0.8 mg/dL 0.50 - 1.05 mg/dL [facility] ESR Westergren method (Bld) [Velocity]on 09-03-2024 ESR (Bld) [Velocity] 70 mm/h High < OR = 30 [facility] No Panel Informationon 09-03 Interpretation and review of laboratory results Abnormal [facility] SED RATE BY MODIFIED WESTERG RENon 09-03-2024 SED RATE BY MODIFIED WESTERGREN 70 mm/h High < OR = 30 [facility] Comment on above: Performed By: #### 8 09, 822, 823, 6399, 375 #### [facility] [place] [address] Head Lineman: Vel Keith MD POCT [facility] 06-06-2024 [facility] 06-03-2024 ALT [Catalytic activity/Vol] 10 U/L Normal 6-29 [facility] Comment on above: Performed By: #### 6 399, 823, 822, 375, 374, 809 #### [facility] [place] [address] Head Lineman: Vel Keith MD Shashank 06-03-2024 AST [Catalytic activity/Vol] 8 U/L Low 10-35 [facility] Comment on above: Performed By: #### 6 399, 823, 822, 375, 374, 809 #### [facility] [place] [address] Head Lineman: Vel Keith MD C-REACTIVE PROTEINon 025 CRP [Mass/Vol] mg/L Normal <8.0 [facility] Comment on above: Performed By: #### 8 09, 822, 823, 6399, 375 #### [facility] [place] [address] Head Lineman: Vel Keith MD CBC (INCLUDES DIFF/PLT)on Basophils (Bld) [#/Vol] 0.037 10*3/uL Normal 0-200 [facility] Comment on above: Performed By: #### 8 09, 822, 823, 6399, 375 #### [facility] [place] [address] Head Lineman: Vel Keith MD Basophils/100 WBC (Bld) 0.5 % Normal [facility] Comment on above: Performed By: #### 8 09, 822, 823, 6399, 375 #### [facility] [place] [address] Head Lineman: Vel Keith MD Eosinophils (Bld) [#/Vol] 0.111 10*3/uL Normal 15-500 [facility] Comment on above: Performed By: #### 8 09, 822, 823, 6399, 375 #### [facility] [place] [address] Head Lineman: Vel Keith MD Eosinophils/100 WBC (Bld) 1.5 % Normal [facility] Comment on above: Performed By: #### 8 09, 822, 823, 6399, 375 #### [facility] [place] [address] Head Lineman: Vel Keith MD Erythrocyte distribution width (RBC) [Ratio] 14.8 % Normal 11.0-15.0 [facility] Comment on above: Performed By: #### 8 09, 822, 823, 6399, 375 #### [facility] [place] [address] Head Lineman: Vel Keith MD Hematocrit (Bld) [Volume fraction] 41.3 % Normal 35.0-45.0 [facility] Comment on above: Performed By: #### 8 09, 822, 823, 6399, 375 #### [facility] [place] [address] Head Lineman: Vel Keith MD Hemoglobin (Bld) [Mass/Vol] 13.7 g/dL Normal 11.7-15.5 [facility] Comment on above: Performed By: #### 8 09, 822, 823, 6399, 375 #### [facility] [place] [address] Head Lineman: Vel Keith MD Lymphocytes (Bld) [#/Vol] 2.605 10*3/uL Normal 850-3900 [facility] Comment on above: Performed By: #### 8 09, 822, 823, 6399, 375 #### [facility] [place] [address] Head Lineman: Vel Keith MD Lymphocytes/100 WBC (Bld) 35.2 % Normal [facility] Comment on above: Performed By: #### 8 09, 822, 823, 6399, 375 #### [facility] [place] [address] Head Lineman: Vel Keith MD MCH (RBC) [Entitic mass] 30.3 pg Normal 27.0-33.0 [facility] Comment on above: Performed By: #### 8 09, 822, 823, 6399, 375 #### [facility] [place] [address] Head Lineman: Vel Keith MD MCHC (RBC) [Mass/Vol] 33.2 g/dL Normal 32.0-36.0 [facility] Comment on above: Result Comment: For adults, a slight decrease in the calculated MCHC value (in the range of 30 to 32 g/dL) is most likely not clinically significant; however, it should be interpreted with caution in correlation with other red cell parameters and the patient's clinical condition. Performed By: #### 8 09, 822, 823, 6399, 375 #### [facility] of [address], [address] [place] [address] Head Lineman: Vel Keith MD MCV (RBC) [Entitic vol] 91.4 fL Normal 80.0-100.0 [facility] Comment on above: Performed By: #### 8 09, 822, 823, 6399, 375 #### [facility] [place] [address] Head Lineman: Vel Keith MD Monocytes (Bld) [#/Vol] 0.437 10*3/uL Normal 200-950 [facility] Comment on above: Performed By: #### 8 09, 822, 823, 6399, 375 #### [facility] [place] [address] Head Lineman: Vel Keith MD Monocytes/100 WBC (Bld) 5.9 % Normal [facility] Comment on above: Performed By: #### 8 09, 822, 823, 6399, 375 #### [facility] [place] [address] Head Lineman: Vel Keith MD Neutrophils (Bld) [#/Vol] 4.211 10*3/uL Normal 0083-3388 [facility] Comment on above: Performed By: #### 8 09, 822, 823, 6399, 375 #### [facility] [place] [address] Head Lineman: Vel Keith MD Neutrophils/100 WBC (Bld) 56.9 % Normal [facility] Comment on above: Performed By: #### 8 09, 822, 823, 6399, 375 #### [facility] [place] [address] Head Lineman: Vel Keith MD Platelet mean volume (Bld) [Entitic vol] 10.3 fL Normal 7.5-12.5 [facility] Comment on above: Performed By: #### 8 09, 822, 823, 6399, 375 #### [facility] of [address], [address] [place] [address] Head Lineman: Vel Keith MD Platelets (Bld) [#/Vol] 347 10*3/uL Normal 140-400 [facility] Comment on above: Performed By: #### 8 09, 822, 823, 6399, 375 #### [facility] [place] [address] Head Lineman: Vel Keith MD RBC (Bld) [#/Vol] 4.52 10*6/uL Normal 3.80-5.10 [facility] Comment on above: Performed By: #### 8 09, 822, 823, 6399, 375 #### [facility] of [place] [place] [address] Head Lineman: Vel Keith MD WBC (Bld) [#/Vol] 7.4 10*3/uL Normal 3.8-10.8 [facility] Comment on above: Performed By: #### 8 09, 822, 823, 6399, 375 #### [facility] [place] [address] Head Lineman: Vel Keith MD CREATINE KINASE, TOTALon CREATINE KINASE, TOTAL 36 U/L Normal 20-243 [facility] Comment on above: Performed By: #### 6 399, 823, 822, 375, 374, 809 #### [facility] [place] [address] Head Lineman: Vel Keith MD CREATININEon 06-03-2024 Creatinine [Mass/Vol] 0.88 mg/dL Normal 0.50-1.[address] [facility] Comment on above: Performed By: #### 6 399, 823, 822, 375, 374, 809 #### [facility] [place] [address] Head Lineman: Vel Keith MD GFR/1.73 sq M.predicted among non-blacks MDRD (S/P/Bld) [Vol rate/Area] 73 mL/min/{1.73_m2} Normal > OR = 60 [facility] Comment on above: Performed By: #### 6 399, 823, 822, 375, 374, 809 #### [facility] [address], [address] [place] [address] Head Lineman: Vel Keith MD SED RATE BY MODIFIED WESTERG RENon 06-03-2024 SED RATE BY MODIFIED WESTERGREN 111 mm/h High < OR = 30 [facility] Comment on above: Performed By: #### 6 399, 823, 822, 375, 374, 809 #### [facility] [address] , [address] [place] [address] Head Lineman: Vel Keith MD COMPLETE BLOOD COUNT 02-26 Erythrocyte distribution width (RBC) [Ratio] 18.0 % High 11.5-15.0 [facility] Comment on above: Performed By: #### Reginald PARK CMP, 71008-7, 87432-4 #### [facility] ([id number]) [address], [address] [place] [address] Hematocrit (Bld) [Volume fraction] 39.3 % Normal 35-47 [facility] Comment on above: Performed By: #### Reginald PARK CMP, 61584-1, 69083-9 #### [facility] ([id number]) [address], [address] [place] [address] Hemoglobin (Bld) [Mass/Vol] 12.9 g/dL Normal 11.7-15.5 [facility] Comment on above: Performed By: #### Reginald BC, CMP, , #### [facility] ([id number]) [address], [address] [place] [address] MCH (RBC) [Entitic mass] 28.8 pg Normal 27-34 [facility] Comment on above: Performed By: #### C VIVIAN, CMP, , #### [facility] ([id number]) [address], [address] [place] [address] MCHC (RBC) [Mass/Vol] 32.9 g/dL Normal 32-36 [facility] Comment on above: Performed By: #### Reginald BC, CMP, , #### [facility] ([id number]) [address], [address] [place] [address] MCV (RBC) [Entitic vol] 88 fL Normal 80-100 [facility] Comment on above: Performed By: #### Reginald BC, CMP, , #### [facility] ([id number]) [address], [address] [place] [address] Platelet mean volume (Bld) [Entitic vol] 9.6 fL Normal 7-12 [facility] Comment on above: Performed By: #### Reginald PARK, CMP, , 36153-2 #### [facility] ([id number]) [address], [address] [place] [address] Platelets (Bld) [#/Vol] 337 10*3/uL Normal 150-450 [facility] Comment on above: Performed By: #### Reginald BC, CMP, , #### [facility] ([id number]) [address], [address] [place] [address] RBC COUNT 4.49 X10E12/L Normal 3.80-5.20 [facility] Comment on above: Performed By: #### Reginald BC, CMP, , #### [facility] ([id number]) [address], [address] [place] [address] WBC (Bld) [#/Vol] 7.2 10*3/uL Normal 4.0-11.0 [facility] Comment on above: Performed By: #### C BC, CMP, 53132-4, #### [facility] ([id number]) [address], [address] [place] [address] COMPREHENSIVE METABOLIC PANE Merlin 02-27-2024 Albumin [Mass/Vol] 3.8 g/dL Normal 3.2-5.3 [facility] Comment on above: Performed By: #### Reginald BC, CMP, 15649-0, #### [facility] ([id number]) [address], [address] [place] [address] ALP [Catalytic activity/Vol] 106 U/L Normal 39-130 [facility] Comment on above: Performed By: #### Reginald BC, CMP, 16309-8, #### [facility] ([id number]) [address] [place] [address] ALT [Catalytic activity/Vol] 12 U/L Normal 0-31 [facility] Comment on above: Performed By: #### Reginald PARK, CMP, , 97822-9 #### [facility] ([id number]) [address], [address] [place] [address] Anion gap [Moles/Vol] 8 mmol/L Normal 5-15 [facility] Comment on above: Performed By: #### Reginald BC, CMP, , #### [facility] ([id number]) [address], [address] [place] [address] AST [Catalytic activity/Vol] 18 U/L Normal 0-41 [facility] Comment on above: Performed By: #### Reginald BC, CMP, 56565-8, 49368-7 #### [facility] ([id number]) [address], [address] [place] [address] Bilirubin [Mass/Vol] 0.8 mg/dL Normal 0.3-1.2 [facility] Comment on above: Performed By: #### Reginald PARK [facility], , #### [facility] ([id number]) [address], [address] [place] [address] Calcium [Mass/Vol] 9.5 mg/dL Normal 8.5-10.5 [facility] Comment on above: Performed By: #### Reginald PARK [facility], , #### [facility] ([id number]) [address], [address] [place] [address] Chloride [Moles/Vol] 99 mmol/L Normal 98-109 [facility] Comment on above: Performed By: #### Reginald PARK [facility], , #### [facility] ([id number]) [address], [address] [place] [address] CO2 [Moles/Vol] 30 mmol/L Normal 22-32 [facility] Comment on above: Performed By: #### Reginald PARK [facility], , #### [facility] ([id number]) [address], [address] [place] [address] Creatinine [Mass/Vol] 0.81 mg/dL Normal 0.40-1.00 [facility] Comment on above: Result Comment: METH OD TRACEABLE TO IDMS STANDARD Performed By: #### Reginald PARK, [facility], , #### [facility] ([id number]) [address], [address] [place] [address] GFR/1.73 sq M.predicted among non-blacks MDRD (S/P/Bld) [Vol rate/Area] 81 mL/min/{1.73_m2} Normal >59 [facility] Comment on above: Result Comment: Reported eGFR is based on the CKD-EPI 2020 equation that does not use a race coefficient. Performed By: #### C BC, CMP, 21236-5, #### [facility] ([id number]) [address], [address] [place] [address] Glucose [Mass/Vol] 83 mg/dL Normal 65-99 [facility] Comment on above: Performed By: #### Reginald BC, CMP, 63643-4, #### [facility] ([id number]) [address] [place] [address] Potassium [Moles/Vol] 3.5 mmol/L Normal 3.5-5.0 [facility] Comment on above: Performed By: #### Reginald BC, CMP, 44230-5, 33374-1 #### [facility] ([id number]) [address], [address] [place] [address] Protein [Mass/Vol] 8.0 g/dL Normal 6.0-8.0 [facility] Comment on above: Performed By: #### Reginald BC, CMP, 46997-3, 81946-6 #### [facility] ([id number]) [address], [address] [place] [address] Sodium [Moles/Vol] 137 mmol/L Normal 134-146 [facility] Comment on above: Performed By: #### Reginald BC, CMP, 52370-3, #### [facility] ([id number]) [address], [address] [place] [address] Urea nitrogen [Mass/Vol] 8 mg/dL Normal 5-27 [facility] Comment on above: Performed By: #### C BC, CMP, 62353-2, 57329-8 #### [facility] ([id number]) [address], [address] [place] [address] Lipid 1996 panelon 4 Cholesterol [Mass/Vol] 137 mg/dL Low 150-200 [facility] Comment on above: Performed By: #### Reginald PARK, CMP, , 70441-1 #### [facility] ([id number]) [address], [address] [place] [address] Cholesterol in HDL [Mass/Vol] 48 mg/dL Normal >39 [facility] Comment on above: Result Comment: HDL <40 mg/dL - High Risk HDL > or = 40mg/dL- Desirable HDL >60 mg/dL - Negative Risk Performed By: #### Reginald BC, CMP, , 42299-8 #### [facility] ([id number]) [address], [address] [place] [address] Cholesterol in LDL [Mass/Vol] 71 mg/dL Normal <130 [facility] Comment on above: Result Comment: LDL <100 mg/dL - Desirable LDL >160 mg/dL - High Risk Performed By: #### Reginald PARK, CMP, , 00356-2 #### [facility] ([id number]) [address], [address] [place] [address] Cholesterol in VLDL [Mass/Vol] 18 mg/dL Normal 0-30 [facility] Comment on above: Performed By: #### Reginald PARK, CMP, , 50465-4 #### [facility] ([id number]) [address], [address] [place] [address] CHOLESTEROL:HDL 2.9 Normal 1.0-5.0 [facility] Comment on above: Performed By: #### Rgeinald BC, CMP, , 21011-4 #### [facility] ([id number]) [address], [address] [place] [address] Triglyceride [Mass/Vol] 88 mg/dL Normal 27-150 [facility] Comment on above: Performed By: #### Reginald BC, CMP, 76550-3, 61362-1 #### [facility] ([id number]) [address], [address] [place] [address] MAGNESIUMon 02-27-2024 Magnesium [Mass/Vol] 1.9 mg/dL Normal 1.8-2.6 [facility] Comment on above: Performed By: #### Reginald BC, CMP, 75789-1, 29741-7 #### [facility] ([id number]) [address] [place] [address] T-SPOT(R).TBon 01-31-2024 NEGATIVE CONTROL Passed Normal [facility] Comment on above: Order Comment: FASTI NG:NORECD IN [facility]: NO Performed By: #### 8 09, 822, 823, 6399, 375 #### [facility] [address], [address] [place] [address] Head Lineman: Vel Keith MD PANEL A SPOT COUNT CORRECTED FOR NEG CONTROL 0 Normal [facility] Comment on above: Order Comment: FASTI NG:NORECD IN [facility]: NO Performed By: #### 8 09, 822, 823, 6399, 375 #### [facility] [address], [address] [place] [address] Head Lineman: Vel Keith MD PANEL B SPOT COUNT CORRECTED FOR NEG CONTROL 0 Normal [facility] Comment on above: Order Comment: [facility] Performed By: #### 8 09, 822, 823, 6399, 375 #### [facility] [address], [address] [place] [address] Head Lineman: Vel Keith MD POSITIVE CONTROL Passed Normal [facility] Comment on above: Order Comment: FASTI NG:NORECD IN [facility]: NO Result Comment: For additional information, please refer to http://education.Scroll.in.Ambassador/faq/JMP269 (This link is being provided for informational/ educational purposes only.) Performed By: #### 8 09, 822, 823, 6399, 375 #### [facility] [address], [address] [place] [address] Head Lineman: Vel Keith MD T-SPOT.TB Negative Normal Negative [facility] Comment on above: Order Comment: FASTI NG:GABRIELACD IN [facility]: NO Result Comment: A negative test result does [...] not be interpreted as a quantitative test. Performed By: #### 8 09, 822, 823, 6399, 375 #### [facility] [address], [address] [place] [address] Head Lineman: Vel Keith MD T-Spot TB Screenon 4 Gamma interferon negative control spot count (Bld) [#] Passed [facility] M. tuberculosis stim IFN-g CFP10 Ag spot count (Bld) [#] 0 [facility] M. tuberculosis stim IFN-g ESAT-6 Ag spot count (Bld) [#] 0 [facility] M. tuberculosis stim IFN-g Ql (Bld) [Interp] Negative Negative [facility] Comment on above: A negative test result does not exclude [...] not be interpreted as a quantitative test. Mitogen stimulated gamma interferon positive control spot count (Bld) [#] Passed [facility] Comment on above: For additional information, please refer to http://education.ACE*COMM/faq/RVV196 (This link is being provided for informational/ educational purposes only.) FASTING:NO RECD IN [facility] FASTING: NO [facility] 01-30-2024 ALT [Catalytic activity/Vol] 10 U/L Normal 6-29 [facility] Comment on above: Performed By: #### 8 09, 822, 823, 6399, 375 #### [facility] [place] [address] Head Lineman: Vel Keith MD Shashank 01-30-2024 AST [Catalytic activity/Vol] 6 U/L Low 10-35 [facility] Comment on above: Performed By: #### 8 09, 822, 823, 6399, 375 #### [facility] [address], [address] [place] [address] Head Lineman: Vel Keith MD CBC (INCLUDES DIFF/PLT)on Basophils (Bld) [#/Vol] 0.054 10*3/uL Normal 0-200 [facility] Comment on above: Performed By: #### 8 09, 822, 823, 6399, 375 #### [facility] [address], [address] [place] [address] Head Lineman: Vel Keith MD Basophils/100 WBC (Bld) 0.7 % Normal [facility] Comment on above: Performed By: #### 8 09, 822, 823, 6399, 375 #### [facility] [place] [address] Head Lineman: Vel Keith MD Eosinophils (Bld) [#/Vol] 0.2 10*3/uL Normal 15-500 [facility] Comment on above: Performed By: #### 8 09, 822, 823, 6399, 375 #### [facility] [place] [address] Head Lineman: Vel Keith MD Eosinophils/100 WBC (Bld) 2.6 % Normal [facility] Comment on above: Performed By: #### 8 09, 822, 823, 6399, 375 #### [facility] [place] [address] Head Lineman: Vel Keith MD Erythrocyte distribution width (RBC) [Ratio] 15.6 % High 11.0-15.0 [facility] Comment on above: Performed By: #### 8 09, 822, 823, 6399, 375 #### [facility] [place] [address] Head Lineman: Vel Keith MD Hematocrit (Bld) [Volume fraction] 38.6 % Normal 35.0-45.0 [facility] Comment on above: Performed By: #### 8 09, 822, 823, 6399, 375 #### [facility] [place] [address] Head Lineman: Vel Keith MD Hemoglobin (Bld) [Mass/Vol] 12.4 g/dL Normal 11.7-15.5 [facility] Comment on above: Performed By: #### 8 09, 822, 823, 6399, 375 #### [facility] [place] [address] Head Lineman: Vel Keith MD Lymphocytes (Bld) [#/Vol] 2.626 10*3/uL Normal 850-3900 [facility] Comment on above: Performed By: #### 8 09, 822, 823, 6399, 375 #### [facility] [place] [address] Head Lineman: Vel Keith MD Lymphocytes/100 WBC (Bld) 34.1 % Normal [facility] Comment on above: Performed By: #### 8 09, 822, 823, 6399, 375 #### [facility] [place] [address] Head Lineman: Vel Keith MD MCH (RBC) [Entitic mass] 27.9 pg Normal 27.0-33.0 [facility] Comment on above: Performed By: #### 8 09, 822, 823, 6399, 375 #### [facility] [place] [address] Head Lineman: Vel Keith MD MCHC (RBC) [Mass/Vol] 32.1 g/dL Normal 32.0-36.[address] [facility] Comment on above: Result Comment: For adults, a slight decrease in the calculated MCHC value (in the range of 30 to 32 g/dL) is most likely not clinically significant; however, it should be interpreted with caution in correlation with other red cell parameters and the patient's clinical condition. Performed By: #### 8 09, 822, 823, 6399, 375 #### [facility] [place] [address] Head Lineman: Vel Keith MD MCV (RBC) [Entitic vol] 86.7 fL Normal 80.0-100.0 [facility] Comment on above: Performed By: #### 8 09, 822, 823, 6399, 375 #### [facility] [place] [address] Head Lineman: Vel Keith MD Monocytes (Bld) [#/Vol] 0.554 10*3/uL Normal 200-950 [facility] Comment on above: Performed By: #### 8 09, 822, 823, 6399, 375 #### [facility] [place] [address] Head Lineman: Vel Keith MD Monocytes/100 WBC (Bld) 7.2 % Normal [facility] Comment on above: Performed By: #### 8 09, 822, 823, 6399, 375 #### [facility] [place] [address] Head Lineman: Vel Keith MD Neutrophils (Bld) [#/Vol] 4.266 10*3/uL Normal 4231-3653 [facility] Comment on above: Performed By: #### 8 09, 822, 823, 6399, 375 #### [facility] [place] [address] Head Lineman: Vel Keith MD Neutrophils/100 WBC (Bld) 55.4 % Normal [facility] Comment on above: Performed By: #### 8 09, 822, 823, 6399, 375 #### [facility] [place] [address] Head Lineman: Vel Keith MD Platelet mean volume (Bld) [Entitic vol] 10.6 fL Normal 7.5-12.5 [facility] Comment on above: Performed By: #### 8 09, 822, 823, 6399, 375 #### [facility] [place] [address] Head Lineman: Vel Keith MD Platelets (Bld) [#/Vol] 385 10*3/uL Normal 140-400 [facility] Comment on above: Performed By: #### 8 09, 822, 823, 6399, 375 #### [facility] [place] [address] Head Lineman: Vel Keith MD RBC (Bld) [#/Vol] 4.45 10*6/uL Normal 3.80-5.10 [facility] Comment on above: Performed By: #### 8 09, 822, 823, 6399, 375 #### [facility] [place] [address] Head Lineman: Vel Keith MD WBC (Bld) [#/Vol] 7.7 10*3/uL Normal 3.8-10.8 [facility] Comment on above: Performed By: #### 8 09, 822, 823, 6399, 375 #### [facility] [place] [address] Head Lineman: Vel Keith MD CREATININEon 01-30-2024 Creatinine [Mass/Vol] 0.73 mg/dL Normal 0.50-1.05 [facility] Comment on above: Order Comment: FASTI NG:NOFASTING: NO Performed By: #### 8 09, 822, 823, 6399, 375 #### [facility] [place] [address] Head Lineman: Vel Keith MD GFR/1.73 sq M.predicted among non-blacks MDRD (S/P/Bld) [Vol rate/Area] 92 mL/min/{1.73_m2} Normal > OR = 60 [facility] Comment on above: Order Comment: FASTI NG:NOFASTING: NO Performed By: #### 8 09, 822, 823, 6399, 375 #### [facility] [place] [address] Head Lineman: Vel Keith MD HEPATITIS B SURFACE ANTIBODY QLon 01-30-2024 HEPATITIS B SURFACE ANTIBODY QL Non-Reactive Normal NON-REACTI VE [facility] Comment on above: Performed By: #### 8 09, 822, 823, 6399, 375 #### [facility] [place] [address] Head Lineman: Vel Keith MD HEPATITIS B SURFACE ANTIGEN W/REFL CONFIRMon 01-30-2024 HEPATITIS B SURFACE ANTIGEN Non-Reactive Normal NON-REACTI VE [facility] Comment on above: Result Comment: For additional information, please refer to [email or web address].ACE*COMM/faq/PEK636 (This link is being provided for informational/ educational purposes only.) Performed By: #### 8 09, 822, 823, 6399, 375 #### [facility] [address], [address] [place] [address] Head Lineman: Vel Keith MD HEPATITIS C AB W/REFL TO HCV RNA, QN, PCRon 01-30-2024 HEPATITIS C ANTIBODY Non-Reactive Normal NON-MEGHANA CTI VE [facility] Comment on above: Result Comment: HCV antibody was non-reactive. There is no laboratory evidence of HCV infection. In most cases, no further action is required. However, if recent HCV exposure is suspected, a test for HCV RNA (test code 15677) is suggested. For additional information please refer to http://[email or web address]*COMM/faq/GAK99w3 (This link is being provided for informational/ educational purposes only.) Performed By: #### 8 09, 822, 823, 6399, 375 #### [facility] [address], [address] [place] [address] Head Lineman: Vel Keith MD [place] 01-29-2024 ALT [Catalytic activity/Vol] 10 U/L 6 - 29 U/L [facility] Shashank 01-29-2024 AST [Catalytic activity/Vol] 6 U/L Low 10 - 35 U/L [facility] AST [Catalytic activity/Vol] on 01-29-2024 Interpretation and review of laboratory results Abnormal [facility] CBC Auto Differentialon 01-17 Basophils (Bld) [#/Vol] 54 10*3/uL [facility] Basophils/100 WBC (Bld) 0.7 % [facility] Eosinophils (Bld) [#/Vol] 200 10*3/uL [facility] Eosinophils/100 WBC (Bld) 2.6 % [facility] Erythrocyte distribution width (RBC) [Ratio] 15.6 % High 11.0 - 15.0 % [facility] Hematocrit (Bld) [Volume fraction] 38.6 % 35.0 - 45.0 % [facility] Hemoglobin (Bld) [Mass/Vol] 12.4 g/dL 11.7 - 15.5 g/dL [facility] Interpretation and review of laboratory results Abnormal [facility] Lymphocytes (Bld) [#/Vol] 2626 10*3/uL [facility] Lymphocytes/100 WBC (Bld) 34.1 % [facility] MCH (RBC) [Entitic mass] 27.9 pg 27.0 - 33.0 pg [facility] MCHC (RBC) [Mass/Vol] 32.1 g/dL 32.0 - 36.0 g/dL [facility] Comment on above: For adults, a slight decrease in the calculated MCHC value (in the range of 30 to 32 g/dL) is most likely not clinically significant; however, it should be interpreted with caution in correlation with other red cell parameters and the patient's clinical condition. MCV (RBC) [Entitic vol] 86.7 fL 80.0 - 100.0 fL [facility] Monocytes (Bld) [#/Vol] 554 10*3/uL [facility] Monocytes/100 WBC (Bld) 7.2 % [facility] Neutrophils (Bld) [#/Vol] 4266 10*3/uL [facility] Neutrophils/100 WBC (Bld) 55.4 % [facility] Platelet mean volume (Bld) [Entitic vol] 10.6 fL 7.5 - 12.5 fL [facility] Platelets (Bld) [#/Vol] 385 10*3/uL [facility] RBC (Bld) [#/Vol] 4.45 10*6/uL [facility] ealth WBC (Bld) [#/Vol] 7.7 10*3/uL [facility] FASTING:NO FASTING: NO [facility] Creatinine [Mass/Vol]on 01-17 GFR/1.73 sq M.predicted among non-blacks MDRD (S/P/Bld) [Vol rate/Area] 92 mL/min/{1.73_m2} > OR = 60 mL/min/1.7 3m2 [facility] Creatinine, serumon 01-29-20 Creatinine [Mass/Vol] 0.73 mg/dL 0.50 - 1.05 mg/dL [facility] No Panel Informationon 01-28 FASTING:NO FASTING: NO [facility] Laboratory - Chemistry and C hemistry - challengeon 11-22-2023 TSH Qn 0.789 m[IU]/L 0.358-3.74 0 [facility] Amphetamine Screen Ql (U)Ord ered By: Josue Muro on 09-17-2023 Amphetamines Ql (U) Negative Negative [facility] Barbiturates [Presence] in U rine by Screen methodOrdered By: Josue Muro on 09-17-2023 Barbiturates Screen Ql (U) Negative Negative [facility] Benzodiazepines Screen Ql (U )Ordered By: Josue Muro on 09-17-2023 Benzodiazepines Ql (U) Positive High Negative [facility] Benzoylecgonine [Presence] i n Urine by Screen methodOrdered By: Josue Muro on 09-17-2023 Benzoylecgonine Screen Ql (U) Negative Negative [facility] Cannabinoids [Presence] in U rine by Screen methodOrdered By: Josue Muro on 09-17-2023 Cannabinoids Screen Ql (U) Positive High Negative [facility] Comment on above: These are unconfirme d results and should not be used for legal purposes. Drug Cut-Off Concentration: AMPH 1000 ng/mL TAYLER 200 ng/mL JESSY 200 ng/mL COCM 300 ng/mL OP 300 ng/mL PCP 25 ng/mL THC 20 ng/mL Opiates [Presence] in Urine by Screen methodOrdered By: Josue Muro on 09-17-2023 Opiates Screen Ql (U) Negative Negative [facility] Phencyclidine Screen Ql (U)O rdered By: Josue Muro on 09-17-2023 Phencyclidine Ql (U) Negative Negative [facility] CNOVSPon 09-14-2023 CNOVSP Visit (SP) Office ([place]) ----- ARIAN FRITZ ([id number]) 1960 F Date Time Provider Department 09/14/23 3:45 PM NEVILLE YEE During your visit today, we recorded the following information about you: Temperature Pulse Respiration Blood pressure 97.8 degrees 72/minute 18/minute 120/76 Weight 52.9 kg Neville Yee MD 09/14/2023 6:27 PM Signed NAME: Arian Fritz CLINIC NO.: [id number] DATE OF SERVICE: September 14, 2023 (Kirit) [...] to be identified at this time. PLAN: [facility] PRN ____- HPI: CASE HISTORY: Reverse Chronological [...] EGD/colonoscopy next week. She may RTC with va PRN. Initial Visit, August 23, 2023: Arian [...] implant. She (more content not included)... Normal [facility] PET+CT Guidance for localiza tion of tumor of Skull base to mid-thigh-- W 18F-FDG Marybeth 09-14-2023 IMPRESSION: HEAD/NECK: * No FDG avid neoplastic [...] any questions regarding this interpretation, please call [phone]. If you are unable to reach us at the number above, please feel free to contact [facility] eRadiology at [phone]. DIVISION OF RADIOLOGY * * *Final Report* * * DATE OF EXAM: Sep 10 2023 3:57PM NRN 0060 - NM PET/CT SKULL-THIGH INIT / PROCEDURE REASON: Diffuse [...] * Radiopharmaceutical Activity: 6.4 mCi * Radiopharmaceutical: V21-Zjxbqzhiylubtknukr (FDG) * All reported standardized uptake values represent maximum SUV (SUVmax) per body weight, unless otherwise specified. 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 Notes and [...] NECK: Imaged Head: No abnormal uptake. Neck & Lymph Nodes: No abnormal uptake. Thyroid: No abnormal uptake. CHEST: Lungs & Airways: No abnormal uptake. Abnormally dilated pulmonary vessels in the anterior lingula. Pleura & Pericardium: No abnormal uptake. Cardiovascular: No abnormal uptake. Mediastinum & Lymph Nodes: Subcentimeter right axillary lymph node with FDG uptake, 0.5 cm, SUV 4.5. No other FDG avid adenopathy. ABDOMEN AND PELVIS: Hepatobiliary: No abnormal uptake. Spleen: No abnormal uptake. Pancreas: No abnormal uptake. Adrenals: No abnormal uptake. Urinary Tract: No abnormal uptake. GI Tract: No abnormal uptake. Peritoneum: No abnormal uptake. Vasculature: No abnormal uptake. Retroperitoneum & Lymph Nodes: No abnormal uptake. Pelvis: No abnormal uptake. MUSCULOSKELETAL: Osseous: No abnormal uptake. Degenerative uptake in the spine, shoulders and hip joints Soft Tissues: No abnormal uptake. DIVISION OF RADIOLOGY Provider, [facility] - 09/14/2023 * * *Final Report* * * DATE OF EXAM: Sep 10 2023 3:57PM NRN 0060 - NM PET/CT SKULL-THIGH INIT / PROCEDURE REASON: Diffuse [...] * Radiopharmaceutical Activity: 6.4 mCi * Radiopharmaceutical: J53-Bhpwbvwihazeglerkd (FDG) * All reported standardized uptake values represent maximum SUV (SUVmax) per body weight, unless otherwise specified. 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 Notes and [...] NECK: Imaged Head: No abnormal uptake. Neck & Lymph Nodes: No abnormal uptake. Thyroid: No abnormal uptake. CHEST: Lungs & Airways: No abnormal uptake. Abnormally dilated pulmonary vessels in the anterior lingula. Pleura & Pericardium: No abnormal uptake. Cardiovascular: No abnormal uptake. Mediastinum & Lymph Nodes: Subcentimeter right axillary lymph node with FDG uptake, 0.5 cm, SUV 4.5. No other FDG avid adenopathy. ABDOMEN AND PELVIS: Hepatobiliary: No abnormal uptake. Spleen: No abnormal uptake. Pancreas: No abnormal uptake. Adrenals: No abnormal uptake. Urinary Tract: No abnormal uptake. GI Tract: No abnormal uptake. Peritoneum: No abnormal uptake. Vasculature: No abnormal uptake. Retroperitoneum & Lymph Nodes: No abnormal uptake. Pelvis: No abnormal uptake. MUSCULOSKELETAL: Osseous: No abnormal uptake. Degenerative uptake in the spine, shoulders and hip joints Soft Tissues: No abnormal uptake. IMPRESSION IMPRESSION: HEAD/NECK: * No FDG avid neoplastic [...] any questions regarding this interpretation, please call [phone]. If you are unable to reach us at the number above, please feel free to contact [facility] eRadiology at [phone]. [facility] PET+CT Guidance for localiza tion of tumor of Skull base to mid-thigh-- W 18F-FDG IVOrdered By: Ccf Provider on 09-14-2023 [facility] GLUCOSE, BLOOD (POC)on 09-09 Glucose [Mass/Vol] 85 mg/dL 74 - 99 mg/dL [facility] Comment on above: Location:[facility], [address] [place] [address] , [place], [place], [address] The Accu-Chek Inform II glucose meter has not been approved for testing on patients receiving intensive medical intervention or therapy and results from this point of care glucose test should not be used for patient management decisions in these cases. Inaccurate results may also occur from other interfering factors, such as N-acetylcysteine (blood concentrations of greater than 5mg/dL), galactose, extremes of hematocrit (<10 or >65), or high doses of ascorbic acid (vitamin C) greater than 3mg/dL. Consider alternate testing mechanisms (e.g. core lab, blood gas instrument) in the above situations. [facility] PET/CT SKULL-THIGH INITon 09-10-2023 [place] PET/CT SKULL-THIGH INIT * * *Final Report* * * DATE OF EXAM: Sep 10 2023 3:57PM NRN 0060 - [place] PET/CT SKULL-THIGH INIT / PROCEDURE REASON: Diffuse [...] * Radiopharmaceutical Activity: 6.4 mCi * Radiopharmaceutical: X23-Fgeqgistzlyiqiqktj (FDG) * All reported standardized uptake values represent maximum SUV (SUVmax) per body weight, unless otherwise specified. 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 Notes and [...] any questions regarding this interpretation, please call [phone]. If you are unable to reach us at the number above, please feel free to contact [facility] eRadiology at [phone]. [id number] Normal [facility] PET+CT Guidance for localiza tion of tumor of Skull base to mid-thigh-- W 18F-FDG Marybeth 09-10-2023 Radiology Study observation (narrative) [facility] CNPKalli 09-05-2023 CNPN Telephone (HEMASA) ----- ARIAN FRITZ ([id number]) 1960 F Date Time Provider Department 09/05/23 MAICOL MCQUEEN During your visit today, we recorded the following information about you: Maicol Mcqueen RN 09/05/2023 2:16 PM Signed pt having colonoscopy/EGD 09/17/23. Pt needs to hold Eliquis and Jardiance for 4 days prior. Max: Please advise Neville Canseco MD 09/06/2023 8:32 AM Signed Agree thanks Noris Heranndez RN 09/06/2023 9:15 AM Signed Left message on that Dr. 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 Coagulation factor VIII acti vity actual/normal Coag (PPP) [Relative time]Ordered By: Jane Mtz on 08-24-2023 Interpretation and review of laboratory results Abnormal [facility] Comprehensive metabolic 2000 panelon 08-24-2023 Albumin [Mass/Vol] 3.8 g/dL Low 3.9 - 4.9 g/dL [facility] ALP [Catalytic activity/Vol] 123 U/L 34 - 123 U/L [facility] ALT [Catalytic activity/Vol] 9 U/L 7 - 38 U/L [facility] Anion gap [Moles/Vol] 12 mmol/L 8 - 15 mmol/L [facility] AST [Catalytic activity/Vol] 16 U/L 13 - 35 U/L [facility] Bilirubin [Mass/Vol] 0.4 mg/dL 0.2 - 1 .3 mg/dL [facility] Calcium [Mass/Vol] 10.0 mg/dL 8.5 - 10. 2 mg/dL [facility] Chloride [Moles/Vol] 103 mmol/L 98 - 10 7 mmol/L [facility] CO2 [Moles/Vol] 24 mmol/L 22 - 30 mmol/L [facility] Creatinine [Mass/Vol] 0.78 mg/dL 0.58 - 0.96 mg/dL [facility] GFR/1.73 sq M.predicted among non-blacks MDRD (S/P/Bld) [Vol rate/Area] 85 mL/min/{1.73_m2} - PINF [facility] Comment on above: Estimated Glomerular Filtration Rate [...] [Mass/Vol] 92 mg/dL 74 - 99 mg/dL [facility] Comment on above: The [place] Diabete s Association (ADA) provides guidance for [...] Standards of Medical Care in Diabetes 2016, [place] Diabetes Association. Diabetes Care. 2016.39(Suppl 1). Interpretation and review of laboratory results Abnormal [facility] Potassium [Moles/Vol] 3.7 mmol/L 3.7 - 5.1 mmol/L [facility] Protein [Mass/Vol] 8.0 g/dL 6.3 - 8.0 g/dL [facility] Sodium [Moles/Vol] 139 mmol/L 136 - 144 mmol/L [facility] Urea nitrogen [Mass/Vol] 6 mg/dL Low 7 - 21 mg/dL [facility] FACTOR II:C ASSAYon 08-24-19 Prothrombin activity actual/normal Coag (PPP) [Relative time] 95 % 77 - 151 % [facility] FACTOR V:C ASSAYon Coagulation factor V activity actual/normal Coag (PPP) [Relative time] 72 % Low 73 - 139 % [facility] FACTOR VIII:C ASSAYOrdered B y: Jane Mtz on 08-24-2023 Coagulation factor VIII activity actual/normal Coag (PPP) [Relative time] 261 % High 50 - 173 % [facility] Comment on above: The factor VIII clot table activity level is elevated. This can be observed during the acute phase response. Persistent elevation of factor VIII, however, has been shown to be a risk factor for venous thrombosis. Suggest rechecking the factor VIII level in 1-2 months. FERRITINon 08-24-2023 Ferritin [Mass/Vol] 124.0 ng/mL 14.7 - 205.1 ng/mL [facility] FOLATE, SERUMon 08-24-2023 Folate [Mass/Vol] 5.8 ng/mL 4.7 - PINF ng/mL [facility] Ferritin [Mass/Vol]on 2023 Interpretation and review of laboratory results Normal [facility] Iron and Iron binding capaci ty panelon 08-24-2023 Interpretation and review of laboratory results Abnormal [facility] Iron [Mass/Vol] 42 ug/dL 41 - 186 ug/dL [facility] Iron binding capacity [Mass/Vol] 283 ug/dL 232 - 386 ug/dL [facility] Iron/TIBC [Molar ratio] 14.8 % Low 15.0 - 57.0 % [facility] LACTATE DEHYDROGENASEOrdered By: Sandra Bassett on 08-24-2023 LDH [Catalytic activity/Vol] 233 U/L High 135 - 214 U/L [facility] Comment on above: Hemolysis present. T he [...] Interpretation and review of laboratory results Abnormal [facility] MAGNESIUMon 08-24-2023 Magnesium [Mass/Vol] 2.0 mg/dL 1.7 - 2 .3 mg/dL [facility] Magnesium [Mass/Vol]on 08-23 Interpretation and review of laboratory results Normal [facility] No Panel Informationon 08-23 Interpretation and review of laboratory results Normal [facility] PHOSPHORUS INORGANICon 08-23 Phosphate [Mass/Vol] 3.9 mg/dL 2.7 - 4 .8 mg/dL [facility] PREALBUMINon 08-24-2023 Prealbumin [Mass/Vol] 21 mg/dL 17 - 3 6 mg/dL [facility] Phosphate [Mass/Vol]on 08-23 Interpretation and review of laboratory results Normal [facility] Prealbumin [Mass/Vol]on Interpretation and review of laboratory results Normal [facility] Prothrombin activity actual/ normal Coag (PPP) [Relative time]on 08-24-2023 Interpretation and review of laboratory results Normal [facility] TOTAL CHOLESTEROLon 08-24-19 Cholesterol [Mass/Vol] 142 mg/dL NINF - 200 mg/dL [facility] Comment on above: <200 mg/dL, Desirabl e 200-239 mg/dL, Borderline high >239 mg/dL, High Reference: 1. National Cholesterol Education Program ATP III Guideline At-A-Glance Quick Desk Reference: National Heart, Lung, and Blood Page. National Institutes of Health. 2001: NIH Publication No. 01-3305. VITAMIN B12on 08-24-2023 Cobalamin (Vitamin B12) [Mass/Vol] 283 pg/mL 232 - 1245 pg/mL [facility] Automated basophil %on 08-22 Basophils/100 WBC (Bld) 0.6 % [facility] Comment on above: Order Comment: Speci men Type: BLOOD SPECIMEN Ordering Facility: [facility] Address: [address] [place] [address] Performed By: #### 5 7021-8 #### [facility] CLIA [id number] [address] [place] [address] Automated basophil counton 0 08-23-2023 Basophils (Bld) [#/Vol] 0.04 10*3/uL <0.11 [facility] Comment on above: Order Comment: Speci men Type: BLOOD SPECIMEN Ordering Facility: [facility] Address: [address] [place], [place] [address] Performed By: #### 5 7021-8 #### [facility] CLIA [id number] [address] [place] [address] 48293 Automated blood monocyte cou nton 08-23-2023 Monocytes (Bld) [#/Vol] 0.46 10*3/uL <0.87 [facility] Comment on above: Order Comment: Speci men Type: BLOOD SPECIMEN Ordering Facility: [facility] Address: [address] [place] [address] Performed By: #### 5 7021-8 #### [facility] CLIA [id number] [address] [place] [address] 28065 Automated eosinophil %on Eosinophils/100 WBC (Bld) 2.4 % [facility] Comment on above: Order Comment: Speci men Type: BLOOD SPECIMEN Ordering Facility: [facility] Address: [address] [place] [address] Performed By: #### 5 7021-8 #### [facility] CLIA [id number] [address] [place] [address] 88383 Automated monocyte %on 08-22 Monocytes/100 WBC (Bld) 6.9 % [facility] Comment on above: Order Comment: Speci men Type: BLOOD SPECIMEN Ordering Facility: [facility] Address: [address] [place] [address] Performed By: #### 5 7021-8 #### [facility] CLIA [id number] [address] [place] [address] 45795 Automated neutrophil %on Neutrophils/100 WBC (Bld) 51.6 % [facility] Comment on above: Order Comment: Speci men Type: BLOOD SPECIMEN Ordering Facility: [facility] Address: [address] [place] [address] Performed By: #### 5 7021-8 #### [facility] CLIA [id number] [address] [place] [address] 32771 Blood manual differential co mment interpretation narrativeon 08-23-2023 Manual differential comment Sukhwinder (Bld) [Interp] Auto [facility] CBC W Auto Diff Bldon 2023 Eosinophils (Bld) [#/Vol] 0.16 10*3/uL <0.46 [facility] Comment on above: Order Comment: Speci men Type: BLOOD SPECIMEN Ordering Facility: [facility] Address: [address] [place] [address] Performed By: #### 5 7021-8 #### [facility] CLIA [id number] [address] [place] [address] Immature granulocytes/100 WBC (Bld) 0.2 % [facility] Comment on above: Order Comment: Speci men Type: BLOOD SPECIMEN Ordering Facility: [facility] Address: [address] [place] [address] Performed By: #### 5 7021-8 #### [facility] CLIA [id number] [address] [place], [place] [address] CBC W Auto Differential pane l (Bld)on 08-23-2023 Basophils (Bld) [#/Vol] 0.04 10*3/uL [facility] Basophils/100 WBC (Bld) 0.6 % [facility] Differential cell count method Nom (Bld) Auto [facility] Eosinophils (Bld) [#/Vol] 0.16 10*3/uL [facility] Eosinophils/100 WBC (Bld) 2.4 % [facility] Erythrocyte distribution width (RBC) [Ratio] 14.6 % 11.5 - 15.0 % [facility] Hematocrit (Bld) [Volume fraction] 38.8 % 36.0 - 46.0 % [facility] Hemoglobin (Bld) [Mass/Vol] 12.2 g/dL 11.5 - 15.5 g/dL [facility] Immature granulocytes (Bld) [#/Vol] [facility] Immature granulocytes/100 WBC (Bld) 0.2 % [facility] Lymphocytes (Bld) [#/Vol] 2.55 10*3/uL [facility] Lymphocytes/100 WBC (Bld) 38.3 % [facility] MCH (RBC) [Entitic mass] 26.7 pg 26.0 - 34.0 pg [facility] MCHC (RBC) [Mass/Vol] 31.4 g/dL 30.5 - 36.0 g/dL [facility] MCV (RBC) [Entitic vol] 84.9 fL 80.0 - 100.0 fL [facility] Monocytes (Bld) [#/Vol] 0.46 10*3/uL [facility] Monocytes/100 WBC (Bld) 6.9 % [facility] Neutrophils (Bld) [#/Vol] 3.43 10*3/uL [facility] Neutrophils/100 WBC (Bld) 51.6 % [facility] Nucleated RBC (Bld) [#/Vol] NINF [facility] Nucleated RBC/100 WBC (Bld) [Ratio] 0.0 % /100 WBC [facility] Platelet mean volume (Bld) [Entitic vol] 10.2 fL 9.0 - 12.7 fL [facility] Platelets (Bld) [#/Vol] 355 10*3/uL [facility] RBC (Bld) [#/Vol] 4.57 10*6/uL 3.90 - 5.20 m/uL [facility] WBC (Bld) [#/Vol] 6.65 10*3/uL [facility] Differential cell count method Nom (Bld) Auto Normal [facility] Comment on above: Order Comment: Speci men Type: BLOOD SPECIMEN Ordering Facility: [facility] Address: [address] [place] [address] Performed By: #### 5 7021-8 #### [facility] CLIA [id number] [address] [place] [address] Immature granulocytes (Bld) [#/Vol] 10*3/uL Normal <0.10 [facility] Comment on above: Order Comment: Speci men Type: BLOOD SPECIMEN Ordering Facility: [facility] Address: [address] [place] [address] Performed By: #### 5 7021-8 #### [facility] CLIA [id number] [address] [place] [address] 81797 Nucleated RBC/100 WBC (Bld) [Ratio] 0.0 /100 WBC Normal [facility] Comment on above: Order Comment: Speci men Type: BLOOD SPECIMEN Ordering Facility: [facility] Address: [address] [place] [address] Performed By: #### 5 7021-8 #### [facility] CLIA [id number] [address] [place] [address] WBC (Bld) [#/Vol] 6.65 10*3/uL Normal 3.70-11.00 [facility] Comment on above: Order Comment: Speci men Type: BLOOD SPECIMEN Ordering Facility: [facility] Address: [address] [facility] [place] [address] Performed By: #### 5 7021-8 #### [facility] CLIA [id number] [address] [place] [address] CNOVSPon 08-23-2023 CNOVSP Visit (SP) Office (HEMAS[place]) ----- ARIAN FRITZ ([id number]) 1960 F Date Time Provider Department 08/23/23 4:00 PM NEVILLE YEE During your visit today, we recorded the following information about you: Temperature Pulse Respiration Blood pressure 97.6 degrees 77/minute 16/minute 138/81 Weight 52.5 kg Neville Yee MD 08/25/2023 3:06 PM Signed NAME: Mateusz Fritzna [facility] NO.: [id number] DATE OF SERVICE: August 23, 2023 (Kirit) Referring Provider: Self Referred Consultation requested by Self Referred for an opinion regarding Ms. Childmadison Fox Lam, and my final recommendations will be communicated [...] visualization whe (more content not included)... Normal [facility] Cholest SerPl-mCncon 024 Cholesterol [Mass/Vol] 142 mg/dL <200 [facility] Comment on above: <200 mg/dL, Desirabl e 200-239 mg/dL, Borderline high>239 mg/dL, HighReference:1. National Cholesterol Education Program ATP III Guideline At-A-Glance Quick Desk Reference: National Heart, Lung, and Blood Page. National Institutes of Health. 2001: NIH Publication No. . Order Comment: Speci men Type: BLOOD SPECIMEN Ordering Facility: [facility] Address: [address] [place] [address] Result Comment: <200 mg/dL, Desirable 200-239 mg/dL, Borderline high >239 mg/dL, High Reference: 1. National Cholesterol Education Program ATP III Guideline At-A-Glance Quick Desk Reference: National Heart, Lung, and Blood Page. National Institutes of Health. 2001: NIH Publication No. . Performed By: #### 2 276-4, 2093-3, 36794-4 #### [facility] CLIA [id number] [address] [place] [address] [place] Comp Metab 2000 Pnl SerPlon 08-23-2023 Albumin [Mass/Vol] 3.8 g/dL Low 3.9-4.9 [facility] Comment on above: Order Comment: Speci men Type: BLOOD SPECIMEN Ordering Facility: [facility] Address: [address] [place] [address] Performed By: #### 1 9123-9, 2532-0, 2777-1, 60482-1 #### [facility] CLIA [id number] [address] [place] [address] ALP [Catalytic activity/Vol] 123 U/L 34-123 [facility] Comment on above: Order Comment: Speci men Type: BLOOD SPECIMEN Ordering Facility: [facility] Address: [address] [place] [address] Performed By: #### 1 9123-9, 2532-0, 2776-03, 10116-6 #### [facility] CLIA [id number] [address] [place] [address] ALT [Catalytic activity/Vol] 9 U/L [facility] Comment on above: Order Comment: Speci men Type: BLOOD SPECIMEN Ordering Facility: [facility] Address: [address] [place] [address] Performed By: #### 1 9123-9, 2531-0, 2776-03, 67799-7 #### [facility] CLIA [id number] [address] [place] [address] AST [Catalytic activity/Vol] 16 U/L 13- [facility] Comment on above: Order Comment: Speci men Type: BLOOD SPECIMEN [facility] [facility] Address: [address] [place] [address] Performed By: #### 1 9123-9, 2531-0, 2776-03, #### [facility] CLIA [id number] [address] [place] [address] 92747 Bilirubin [Mass/Vol] 0.4 mg/dL 0.2-1.[address] [facility] Comment on above: Order Comment: Speci men Type: BLOOD SPECIMEN Ordering Facility: [facility] Address: [address] [place] [address] Performed By: #### 1 9123-9, 2531-0, 2776-03, 99039-6 #### [facility] CLIA [id number] [address] [place] [address] 58066 Calcium [Mass/Vol] 10.0 mg/dL 8.5-10.2 [facility] Comment on above: Order Comment: Speci men Type: BLOOD SPECIMEN Ordering Facility: [facility] Address: [address] [place] [address] Performed By: #### 1 9123-9, 253-0, 2776-1, 81320-1 #### [facility] CLIA [id number] [address] [place] [address] Chloride [Moles/Vol] 103 mmol/L 98-[address] [facility] Comment on above: Order Comment: Speci men Type: BLOOD SPECIMEN Ordering Facility: [facility] Address: [address] [place], [place] [address] Performed By: #### 1 9123-9, 2532-0, 2777-1, 30192-6 #### [facility] CLIA [id number] [address] [place] [address] 92837 CO2 [Moles/Vol] 24 mmol/L 22-30 [facility] Comment on above: Order Comment: Speci men Type: BLOOD SPECIMEN Ordering Facility: [facility] Address: [address] [place] [address] Performed By: #### 1 9123-9, 2532-0, 2777-1, 21874-7 #### [facility] CLIA [id number] [address] [place] [address] 00208 Creatinine [Mass/Vol] 0.78 mg/dL 0.58-0.96 [facility] Comment on above: Order Comment: Speci men Type: BLOOD SPECIMEN Ordering Facility: [facility] Address: [address] [place], [place] [address] Performed By: #### 1 9123-9, 2532-0, 2777-1, 67542-4 #### [facility] CLIA [id number] [address] [place] [address] 69585 Glucose [Mass/Vol] 92 mg/dL 74-99 [facility] Comment on above: The [place] Diabete s Association (ADA) provides guidance for [...] Standards of Medical Care in Diabetes 2016, [place] Diabetes Association. Diabetes Care. 2016.39(Suppl 1). Order Comment: Samia jack Type: BLOOD SPECIMEN Ordering Facility: [facility] Address: [address] [place], [place] [address] Result Comment: The [place] Diabetes Association (ADA) provides guidance for cutoff [...] Standards of Medical Care in Diabetes 2016, [place] Diabetes Association. Diabetes Care. 2016.39(Suppl 1). Performed By: #### 1 9123-9, 2532-0, 2777-1, 82001-9 #### [facility] CLIA [id number] [address] [place] [address] Potassium [Moles/Vol] 3.7 mmol/L 3.7-5.1 [facility] Comment on above: Order Comment: Samia jack Type: BLOOD SPECIMEN Ordering Facility: [facility] Address: [address] [place] [address] Performed By: #### 1 9123-9, 2532-0, 277-1, 68595-6 #### [facility] CLIA [id number] [address] [place] [address] Sodium [Moles/Vol] 139 mmol/L 136-144 [facility] Comment on above: Order Comment: Samia jack Type: BLOOD SPECIMEN Ordering Facility: [facility] Address: [address] [id number] Performed By: #### 1 9123-9, 2532-0, 2777-, 89931-5 #### [facility] CLIA [id number] [address] [place] [address] Urea nitrogen [Mass/Vol] 6 mg/dL Low 7-21 [facility] Comment on above: Order Comment: Speci men Type: BLOOD SPECIMEN Ordering Facility: [facility] Address: [address] [place] [address] Performed By: #### 1 9123-9, 2532-0, 2777-1, 48490-9 #### [facility] CLIA [id number] [address] [place] [address] 23934 Comprehensive metabolic 2000 panelon 08-23-2023 Creatinine and Glomerular filtration rate.predicted panel (S/P/Bld) 85 mL/min/1.73m??? Normal >=60 [facility] Comment on above: Order Comment: Speci marcie Type: BLOOD SPECIMEN Ordering Facility: [facility] Address: [address] [place] [address] Result Comment: Pili mated Glomerular Filtration Rate [...] Performed By: #### 1 9123-9, 2532-0, 2777-1, 52902-1 #### [facility] CLIA [id number] [address] [place] [address] 58985 Erythrocyte distribution wid th [Ratio] by Automated counton 08-23-2023 Erythrocyte distribution width (RBC) [Ratio] 14.6 % 11.5-15.0 [facility] Comment on above: Order Comment: Speci men Type: BLOOD SPECIMEN Ordering Facility: [facility] Address: [address] [place] [address] Performed By: #### 5 7021-8 #### [facility] CLIA [id number] [address] [place] [address] 32262 Erythrocytes [#/volume] in B lood by Automated counton 08-23-2023 RBC (Bld) [#/Vol] 4.57 10*6/uL 3.90-5.20 [facility] Comment on above: Order Comment: Specbryce jack Type: BLOOD SPECIMEN Ordering Facility: [facility] Address: [address] [place] [address] Performed By: #### 5 7021-8 #### [facility] CLIA [id number] [address] [place] [address] 93987 Fact V Act/Nor PPPon 024 Coagulation factor V activity actual/normal Coag (PPP) [Relative time] 72 % Low 73-139 [facility] Comment on above: Order Comment: Samia jack Type: BLOOD SPECIMEN Ordering Facility: [facility] Address: [address] [place] [address] Performed By: #### 2 276-4, 3, 11699-4 #### [facility] CLIA [id number] [address] [place] [address] [place] Fact VIII Act/Nor PPPon Coagulation factor VIII activity actual/normal Coag (PPP) [Relative time] 261 % High 50-173 [facility] Comment on above: Order Comment: Samia jack Type: BLOOD SPECIMEN Ordering Facility: [facility] Address: [address] [place] [address] Result Comment: The factor VIII clottable activity level is elevated. This can be observed during the acute phase response. Persistent elevation of factor VIII, however, has been shown to be a risk factor for venous thrombosis. Suggest rechecking the factor VIII level in 1-2 months. Performed By: #### 2 276-4, 3, 27325-1 #### [facility] CLIA [id number] [address] [place], [place] [address] [place] Ferritin SerPl-mCncon 2023 Ferritin [Mass/Vol] 124.0 ng/mL 14.7-205.[address] [facility] Comment on above: Order Comment: Speci men Type: BLOOD SPECIMEN Ordering Facility: [facility] Address: [address] [place] [address] Performed By: #### 2 276-4, 2092-3, 18104-6 #### [facility] CLIA [id number] [address] [place] [address] [place] Folate SerPl-mCncon 08-23-19 24 Folate [Mass/Vol] 5.8 ng/mL Normal >4.7 [facility] Comment on above: Order Comment: Speci men Type: BLOOD SPECIMEN Ordering Facility: [facility] Address: [address] [place] [address] Performed By: #### 2 276-4, 2092-3, 38572-8 #### [facility] CLIA [id number] [address] [place] [address] [place] Hematocrit [Volume Fraction] of Blood by Automated counton 08-23-2023 Hematocrit (Bld) [Volume fraction] 38.8 % 36.0-46.0 [facility] Comment on above: Order Comment: Speci men Type: BLOOD SPECIMEN Ordering Facility: [facility] Address: [address] [place] [address] Performed By: #### 5 7021-8 #### [facility] CLIA [id number] [address] [place] [address] 10845 Hemoglobin [Mass/volume] in Bloodon 08-23-2023 Hemoglobin (Bld) [Mass/Vol] 12.2 g/dL 11.5-15.5 [facility] Comment on above: Order Comment: Speci men Type: BLOOD SPECIMEN Ordering Facility: [facility] Address: [address] [place] [address] Performed By: #### 5 7021-8 #### [facility] CLIA [id number] [address] [place] [address] 31385 Iron and Iron binding capaci ty panelon 08-23-2023 Iron/TIBC [Molar ratio] 14.8 % Low 15.0-57.0 [facility] Comment on above: Order Comment: Speci men Type: BLOOD SPECIMEN Ordering Facility: [facility] Address: [address] [place] [address] Performed By: #### 2 276-4, 3, 31550-6 #### [facility] CLIA [id number] [address] [place] [address] [place] Iron binding capacity [Mass/ volume] in Serum or Plasmaon 08-23-2023 Iron binding capacity [Mass/Vol] 283 ug/dL 232-386 [facility] Comment on above: Order Comment: Speci men Type: BLOOD SPECIMEN Ordering Facility: [facility] Address: [address] [place] [address] Performed By: #### 2 276-4, 2092-05, 20526-6 #### [facility] CLIA [id number] [address] [place] [address] [place] Iron saturation [Mass Fracti on] in Serum or Plasmaon 08-23-2023 Iron saturation [Mass fraction] 14.8 % Low 15.0-57.0 [facility] Iron+TIBC Pnl SerPlon 2023 Iron [Mass/Vol] 42 ug/dL 41-186 [facility] Comment on above: Order Comment: Speci men Type: BLOOD SPECIMEN Ordering Facility: [facility] Address: [address] [place] [address] Performed By: #### 2 276-4, 2092-05, 36860-0 #### [facility] CLIA [id number] [address] [place] [address] [place] LDH SerPl-cCncon 08-23-2023 LDH [Catalytic activity/Vol] 233 U/L High 135-214 [facility] Comment on above: Hemolysis present. T [...] reorder as clinically indicated. Order Comment: Speci marcie Type: BLOOD SPECIMEN Ordering Facility: [facility] Address: [address] [place] [address] Result Comment: Hemo lysis present. The origin [...] Performed By: #### 1 9123-9, 2532-0, 2777-1, 34952-3 #### [facility] CLIA [id number] [address] [place] [address] 49174 Leukocytes [#/volume] correc arin for nucleated erythrocytes in Blood by Automated counon 08-23-2023 WBC corrected for nucl RBC Auto (Bld) [#/Vol] 6.65 k/uL 3.70-11.00 [facility] Lymphocytes [#/volume] in Bl ood by Automated counton 08-23-2023 Lymphocytes (Bld) [#/Vol] 2.55 10*3/uL 1.00-4.00 [facility] Comment on above: Order Comment: Samia jack Type: BLOOD SPECIMEN Ordering Facility: [facility] Address: [address] [place] [address] Performed By: #### 5 7021-8 #### [facility] CLIA [id number] [address] [place] [address] 99784 Lymphocytes/100 leukocytes i n Blood by Automated counton 08-23-2023 Lymphocytes/100 WBC (Bld) 38.3 % [facility] Comment on above: Order Comment: Samia jack Type: BLOOD SPECIMEN Ordering Facility: [facility] Address: [address] [place], [place] [address] Performed By: #### 5 7021-8 #### [facility] CLIA [id number] [address] [place] [address] 64655 MCH [Entitic mass] by Automa arin counton 08-23-2023 MCH (RBC) [Entitic mass] 26.7 pg 26.0-34.0 [facility] Comment on above: Order Comment: Speci men Type: BLOOD SPECIMEN Ordering Facility: [facility] Address: [address] [place] [address] Performed By: #### 5 7021-8 #### [facility] CLIA [id number] [address] [place] [address] 82807 MCHC [Mass/volume] by Automa arin counton 08-23-2023 MCHC (RBC) [Mass/Vol] 31.4 g/dL 30.5-36.0 [facility] Comment on above: Order Comment: Speci men Type: BLOOD SPECIMEN Ordering Facility: [facility] Address: [address] [place] [address] Performed By: #### 5 7021-8 #### [facility] CLIA [id number] [address] [place], [place] [address] MCV [Entitic volume] by Auto mated counton 08-23-2023 MCV (RBC) [Entitic vol] 84.9 fL 80.0-100.0 [facility] Comment on above: Order Comment: Speci men Type: BLOOD SPECIMEN Ordering Facility: [facility] Address: [address] [place] [address] Performed By: #### 5 7021-8 #### [facility] CLIA [id number] [address] [place], [place] [address] Magnesium SerPl-mCncon 08-22 Magnesium [Mass/Vol] 2.0 mg/dL 1.7-2.[address] [facility] Comment on above: Order Comment: Speci men Type: BLOOD SPECIMEN Ordering Facility: [facility] Address: [address] [place] [address] Performed By: #### 1 9123-9, 2532-0, 2777-1, 77941-3 #### [facility] CLIA [id number] [address] [place] [address] 71943 Neutrophils [#/volume] in Bl ood by Automated counton 08-23-2023 Neutrophils (Bld) [#/Vol] 3.43 10*3/uL 1.45-7.50 [facility] Comment on above: Order Comment: Speci men Type: BLOOD SPECIMEN Ordering Facility: [facility] Address: [address] [place] [address] Performed By: #### 5 7021-8 #### [facility] CLIA [id number] [address] [place] [address] No Panel Informationon 08-22 Coagulation Factor V Activity 72 % Low 73-139 [facility] Coagulation Factor VIII Activity 261 % High 50-173 [facility] Comment on above: The factor VIII clot table activity level is elevated. This can be observed during the acute phase response. Persistent elevation of factor VIII, however, has been shown to be a risk factor for venous thrombosis. Suggest rechecking the factor VIII level in 1-2 months. Estimated GFR (CKD-EPI) 85 mL/min/1.73m??? >=60 [facility] Comment on above: Estimated Glomerular Filtration [...] reflect actual GFR. Folate 5.8 ng/mL >4.7 [facility] Immature Granulocyte # (Auto) <0.03 k/uL <0.10 [facility] Phosphorus Level 3.9 mg/dL 2.7-4.8 [facility] Nucleated erythrocytes [#/vo lume] in Blood by Automated counton 08-23-2023 Nucleated RBC (Bld) [#/Vol] 10*3/uL <0.01 [facility] Comment on above: Order Comment: Speci men Type: BLOOD SPECIMEN Ordering Facility: [facility] Address: [address] [place] [address] Performed By: #### 5 7021-8 #### [facility] CLIA [id number] [address] [place] [address] Nucleated erythrocytes [Pres ence] in Blood by Automated counton 08-23-2023 Nucleated RBC Auto Ql (Bld) 0.0 /100{WBC} [facility] Phosphate SerPl-mCncon 08-22 Phosphate [Mass/Vol] 3.9 mg/dL Normal 2.7-4.8 [facility] Comment on above: Order Comment: Speci men Type: BLOOD SPECIMEN Ordering Facility: [facility] Address: [address] [place] [address] Performed By: #### 1 9123-9, 2532-0, 2777-1, 73269-8 #### [facility] CLIA [id number] [address] [place] [address] 84237 Platelet mean volume [Entiti c volume] in Blood by Automated counton 08-23-2023 Platelet mean volume (Bld) [Entitic vol] 10.2 fL 9.0-12.7 [facility] Comment on above: Order Comment: Speci men Type: BLOOD SPECIMEN Ordering Facility: [facility] Address: [address] [place] [address] Performed By: #### 5 7021-8 #### [facility] CLIA [id number] [address] [place] [address] 47134 Platelets [#/volume] in Bloo d by Automated counton 08-23-2023 Platelets (Bld) [#/Vol] 355 10*3/uL 150-400 [facility] Comment on above: Order Comment: Speci men Type: BLOOD SPECIMEN Ordering Facility: [facility] Address: [address] [place], [place] [address] Performed By: #### 5 7021-8 #### [facility] CLIA [id number] [address] [place] [address] 90218 Prealb SerPl-mCncon 08-23-19 24 Prealbumin [Mass/Vol] 21 mg/dL 17-36 [facility] Comment on above: Order Comment: Speci men Type: BLOOD SPECIMEN Ordering Facility: [facility] Address: [address] [place], [place] [address] [address] Performed By: #### 2 276-4, 2092-3, 76410-6 #### [facility] CLIA [id number] [address] [place] [address] [place] Protein [Mass/volume] in Ser um or Plasmaon 08-23-2023 Protein [Mass/Vol] 8.0 g/dL 6.3-8.0 [facility] Comment on above: Order Comment: Speci men Type: BLOOD SPECIMEN Ordering Facility: [facility] Address: [address] [place], [place] [address] [address] Performed By: #### 1 9123-9, 2532-0, 2777-1, 90604-6 #### [facility] CLIA [id number] [address] [place] [address] 65975 Prothrombin activity actual/ normal ratio in platelet poor plasma by coagulation assayon 08-23-2023 Prothrombin activity actual/normal Coag (PPP) [Relative time] 95 % 77-151 [facility] Comment on above: Order Comment: Speci men Type: BLOOD SPECIMEN Ordering Facility: [facility] Address: [address] [place] [address] [place] [address] Performed By: #### 2 276-4, 2092-3, 16936-8 #### [facility] CLIA [id number] [address] [place] [address] [place] Serum or plasma anion gap de terminationon 08-23-2023 Anion gap [Moles/Vol] 12 mmol/L 8-15 [facility] Comment on above: Order Comment: Speci men Type: BLOOD SPECIMEN Ordering Facility: [facility] Address: [facility] [place] [address] Performed By: #### 1 9123-9, 2532-0, 2777-1, 97424-6 #### [facility] CLIA [id number] [address] [place] [address] 11009 Vit B12 [facility] 024 Cobalamin (Vitamin B12) [Mass/Vol] 283 pg/mL 232-1245 [facility] Comment on above: Order Comment: Speci men Type: BLOOD SPECIMEN Ordering Facility: [facility] Address: [address] [place] [address] Performed By: #### 2 276-4, 2093-3, 93335-4 #### [facility] CLIA [id number] [address] [place] [address] [place] [address] [place] Alanine aminotransferase [En zymatic activity/volume] in Serum or PlasmaOrdered By: Ed Lawton on 08-15-2023 ALT [Catalytic activity/Vol] 8 U/L 7-52 [facility] Albumin [Mass/volume] in Ser um or Plasma by Bromocresol green (BCG) dye binding methoOrdered By: Ed Lawton on 08-15-2023 Albumin BCG dye [Mass/Vol] 3.3 g/dL Low 3.5-5.7 [facility] Alkaline phosphatase [Enzyma tic activity/volume] in Serum or PlasmaOrdered By: Ed Lawton on 08-15-2023 ALP [Catalytic activity/Vol] 95 U/L 34-104 [facility] Aspartate aminotransferase [ Enzymatic activity/volume] in Serum or PlasmaOrdered By: Ed Lawton on 08-15-2023 AST [Catalytic activity/Vol] 12 U/L Low 13-39 [facility] Basophils Auto (Bld) [#/Vol] Ordered By: Ed Lawton on 08-15-2023 Basophils (Bld) [#/Vol] 0.0 10*3/uL 0.0-0.2 [facility] Basophils/100 WBC Auto (Bld) Ordered By: Ed Lawton on 08-15-2023 Basophils/100 WBC (Bld) 0.8 % . [facility] Bilirubin.total [Mass/volume ] in Serum or PlasmaOrdered By: Ed Lawton on 08-15-2023 Bilirubin [Mass/Vol] 0.5 mg/dL 0.3-1.[address] [facility] Calcium [Mass/volume] in Ser um or PlasmaOrdered By: Ed Lawton on 08-15-2023 Calcium [Mass/Vol] 9.3 mg/dL 8.6-10.3 [facility] Carbon dioxide, total [Moles /volume] in Serum or PlasmaOrdered By: Ed Lawton on 08-15-2023 CO2 [Moles/Vol] 29.4 mmol/L 21.0-31.0 [facility] Chloride [Moles/volume] in S yari or PlasmaOrdered By: Ed Lawton on 08-15-2023 Chloride [Moles/Vol] 100 mmol/L 98-[address] [facility] Cholesterol [Mass/volume] in Serum or PlasmaOrdered By: Ed Lawton on 08-15-2023 Cholesterol [Mass/Vol] 121 mg/dL Low 140-200 [facility] Comment on above: Chol less than 200 m g/dl low riskChol 201-239 mg/dl borderline riskChol 240 mg/dl and greater high risk Cholesterol in LDL Calc [Mas s/Vol]Ordered By: Ed Lawton on 08-15-2023 Cholesterol in LDL [Mass/Vol] 67 mg/dL 0-100 [facility] Comment on above: LDL ATP III CLASSIFI CATIONLDL less than 100 mg/dL OptimalLDL 100-129 mg/dL Near or above optimalLDL 130-159 mg/dL Borderline highLDL 160-189 mg/dL HighLDL greater than 189 mg/dL Very high Cholesterol in VLDL Calc [Ma ss/Vol]Ordered By: Ed Lawton on 08-15-2023 Cholesterol in VLDL [Mass/Vol] 17 mg/dL [facility] Creatinine [Mass/volume] in Serum or PlasmaOrdered By: Ed Lawton on 08-15-2023 Creatinine [Mass/Vol] 0.63 mg/dL 0.60-1.20 [facility] Eosinophils Auto (Bld) [#/Vo l]Ordered By: Ed Lawton on 08-15-2023 Eosinophils (Bld) [#/Vol] 0.2 10*3/uL 0.0-0.45 [facility] Eosinophils/100 WBC Auto (Bl d)Ordered By: Ed Lawton on 05-29-2024 Eosinophils/100 WBC (Bld) 3.2 % . [facility] Erythrocyte distribution wid th Auto (RBC) [Ratio]Ordered By: Ed Lawton on 08-15-2023 Erythrocyte distribution width (RBC) [Ratio] 14.7 % 11.9-15.3 [facility] Globulin Calc (S) [Mass/Vol] Ordered By: Ed Lawton on 08-15-2023 Globulin (S) [Mass/Vol] 3.5 g/dL [facility] Glucose [Mass/volume] in Ser um or PlasmaOrdered By: Ed Lawton on 08-15-2023 Glucose [Mass/Vol] 85 mg/dL 70-100 [facility] Comment on above: ADA recommended refe rence rangeRandom Glucose Reference Range is dependent on time and content of last meal. Glucose of more than 200 mg/dL in a nonstressed, ambulatory subject supports the diagnosis of Diabetes Mellitus. Hematocrit Auto (Bld) [Volum e fraction]Ordered By: Ed Lawton on 08-15-2023 Hematocrit (Bld) [Volume fraction] 35.7 % 34.0-46.4 [facility] Hemoglobin [Mass/volume] in BloodOrdered By: Ed Lawton on 08-15-2023 Hemoglobin (Bld) [Mass/Vol] 11.7 g/dL Low 11.8-15.4 [facility] Leukocytes [#/volume] correc arin for nucleated erythrocytes in Blood by Automated counOrdered By: Ed Lawton on 08-15-2023 WBC corrected for nucl RBC Auto (Bld) [#/Vol] 5.9 10*3/uL 3.8-11.6 [facility] Lymphocytes Auto (Bld) [#/Vo l]Ordered By: Ed Lawton on 08-15-2023 Lymphocytes (Bld) [#/Vol] 1.9 10*3/uL 1.00-4.8 [facility] Lymphocytes/100 WBC Auto (Bl d)Ordered By: Ed Lawton on 08-15-2023 Lymphocytes/100 WBC (Bld) 32.0 % . [facility] MCH Auto (RBC) [Entitic mass ]Ordered By: Ed Lawton on 08-15-2023 MCH (RBC) [Entitic mass] 27.2 pg 24.7-34.3 [facility] MCHC Auto (RBC) [Mass/Vol]Or dered By: Ed Lawton on 08-15-2023 MCHC (RBC) [Mass/Vol] 32.7 g/dL 32.0-35.0 [facility] MCV Auto (RBC) [Entitic vol] Ordered By: Ed Lawton on 08-15-2023 MCV (RBC) [Entitic vol] 83.3 fL 80-100 [facility] Magnesium [Mass/volume] in S yari or PlasmaOrdered By: Ed Lawton on 08-15-2023 Magnesium [Mass/Vol] 1.8 mg/dL Low 1.9-2.[address] [facility] Monocytes Auto (Bld) [#/Vol] Ordered By: Ed Lawton on 08-15-2023 Monocytes (Bld) [#/Vol] 0.5 10*3/uL 0.0-0.8 [facility] Monocytes/100 WBC Auto (Bld) Ordered By: Ed Lawton on 08-15-2023 Monocytes/100 WBC (Bld) 9.1 % . [facility] Neutrophils Auto (Bld) [#/Vo l]Ordered By: Ed Lawton on 08-15-2023 Neutrophils (Bld) [#/Vol] 3.3 10*3/uL 1.8-7.7 [facility] Neutrophils/100 WBC Auto (Bl d)Ordered By: Ed Lawton on 08-15-2023 Neutrophils/100 WBC (Bld) 54.9 % . [facility] No Panel InformationOrdered By: Ed Lawton on 08-15-2023 Estimated GFR (CKD-EPI) > 60.0 mL/Min [facility] Creatinine Clearance (Chem N/A [facility] Nucleated erythrocytes [Pres ence] in Blood by Automated countOrdered By: Ed Lawton on 08-15-2023 Nucleated RBC Auto Ql (Bld) 0.0 /100{WBC} 0-0.5 [facility] Platelet mean volume Auto (B ld) [Entitic vol]Ordered By: Ed Lawton on 08-15-2023 Platelet mean volume (Bld) [Entitic vol] 8.4 fL 6.3-10.7 [facility] Platelets Auto (Bld) [#/Vol] Ordered By: Ed Lawton on 08-15-2023 Platelets (Bld) [#/Vol] 364 10*3/uL 150-450 [facility] Potassium [Moles/volume] in Serum or PlasmaOrdered By: Ed Lawton on 08-15-2023 Potassium [Moles/Vol] 3.9 mmol/L 3.5-5.1 [facility] Protein [Mass/volume] in Ser um or PlasmaOrdered By: Ed Lawton on 08-15-2023 Protein [Mass/Vol] 6.8 g/dL 6.4-8.9 [facility] RBC Auto (Bld) [#/Vol]Ordere d By: Ed Lawton on 08-15-2023 RBC (Bld) [#/Vol] 4.29 10*6/uL 3.60-5.00 [facility] Serum or plasma albumin/glob ulin mass ratioOrdered By: Ed Lawton on 08-15-2023 Albumin/Globulin [Mass ratio] 0.9 {ratio} [facility] Serum or plasma anion gap de terminationOrdered By: Ed Lawton on 08-15-2023 Anion gap [Moles/Vol] 11.5 mmol/L 6.0-15.0 [facility] Serum or plasma high density lipoprotein (HDL) cholesterol measurementOrdered By: Ed Lawton on 08-15-2023 Cholesterol in HDL [Mass/Vol] 36 mg/dL 23-92 [facility] Comment on above: HDL CHOL ATP-III CLA SSIFICATION Cardiovascular RiskHDL > or equal to 60 mg/dL LOWHDL < 40 mg/dL HIGH Serum or plasma total choles terol/high density lipoprotein (HDL) cholesterol mass ratOrdered By: Ed Lawton on 08-15-2023 Cholesterol.total/Chol esterol in HDL [Mass ratio] 3.4 {ratio} <5.0 [facility] Sodium [Moles/volume] in Ser um or PlasmaOrdered By: Ed Lawton on 08-15-2023 Sodium [Moles/Vol] 137 mmol/L 136-145 [facility] Thyrotropin [Units/volume] i n Serum or PlasmaOrdered By: Ed Lawton on 08-15-2023 TSH Qn 0.28 m[IU]/L Low 0.45-5.33 [facility] Thyroxine (T4) free [Mass/vo lume] in Serum or PlasmaOrdered By: Ed Lawton on 08-15-2023 Free T4 [Mass/Vol] 1.22 ng/dL High 0.61-1.12 [facility] Triglyceride [Mass/volume] i n Serum or PlasmaOrdered By: Ed Lawton on 08-15-2023 Triglyceride [Mass/Vol] 88 mg/dL 0-149 [facility] Comment on above: TRIG ATP III CLASSIF ICATIONTRIG less than 150 mg/dL NormalTRIG 150-199 mg/dL Borderline highTRIG 200-500 mg/dL High TRIG greater than 500 mg/dL Very highStandard traceable to the Center for Disease Conrtrol and Prevention (CDC) test method. Urea nitrogen [Mass/volume] in Serum or PlasmaOrdered By: Ed Lawton on 08-15-2023 Urea nitrogen [Mass/Vol] 10 mg/dL 7-25 [facility] WBC Auto (Bld) [#/Vol]Ordere d By: Ed Lawton on 08-15-2023 WBC (Bld) [#/Vol] 5.9 10*3/uL 3.8-11.6 [facility] Basophils Auto (Bld) [#/Vol] on 05-16-2023 Basophils (Bld) [#/Vol] 0.0 10 3/uL 0.0-0.1 [facility] Basophils/100 WBC Auto (Bld) on 05-16-2023 Basophils/100 WBC (Bld) 0.3 % 0.2-2.0 [facility] Eosinophils/100 WBC Auto (Bl d)on 05-16-2023 Eosinophils/100 WBC (Bld) 1.5 % 0.9-7.0 [facility] Erythrocyte distribution wid th Auto (RBC) [Ratio]on 05-16-2023 Erythrocyte distribution width (RBC) [Ratio] 13.8 % 11.0-15.0 [facility] Estimated glomerular filtrat ion rate (GFR) non- Americanon 05-16-2023 GFR/1.73 sq M.predicted among non-blacks MDRD (S/P/Bld) [Vol rate/Area] mL/min/{1.73_m2} >=60 [facility] Globulin Calc (S) [Mass/Vol] on 05-16-2023 Globulin (S) [Mass/Vol] 4.7 g/dL [facility] Hematocrit Auto (Bld) [Volum e fraction]on 05-16-2023 Hematocrit (Bld) [Volume fraction] 41.2 % 36.0-48.0 [facility] Hemoglobin [Mass/volume] in Bloodon 05-16-2023 Hemoglobin (Bld) [Mass/Vol] 13.2 g/dL 12.0-16.0 [facility] Laboratory - Chemistry and C hemistry - challengeon 05-16-2023 Albumin [Mass/Vol] 3.0 g/dL 3.4-5.0 [facility] ALP [Catalytic activity/Vol] 97 U/L 46-116 [facility] ALT [Catalytic activity/Vol] 16 U/L 14-59 [facility] AST [Catalytic activity/Vol] 83 U/L 15-37 [facility] Bilirubin [Mass/Vol] 0.4 mg/dL 0.2-1.[address] [facility] Calcium [Mass/Vol] 8.7 mg/dL 8.5-10.1 [facility] Chloride [Moles/Vol] 99 mmol/L 98-[address] [facility] CO2 [Moles/Vol] 34.0 mmol/L 21.0-32.0 [facility] Creatinine [Mass/Vol] 0.83 mg/dL 0.55-1.02 [facility] GFR/1.73 sq M.predicted MDRD (S/P/Bld) [Vol rate/Area] mL/min/{1.73_m2} >=60 [facility] Glucose [Mass/Vol] 88 mg/dL 74-106 [facility] Potassium [Moles/Vol] 2.9 mmol/L 3.5-5.1 [facility] Comment on above: RESULTS CALLED TO [facility] Protein [Mass/Vol] 7.7 g/dL 6.4-8.2 [facility] Sodium [Moles/Vol] 140 mmol/L 136-145 [facility] TSH Qn 0.571 m[IU]/L 0.358-3.74 0 [facility] Urea nitrogen [Mass/Vol] 6.0 mg/dL 7.0-18.0 [facility] Urea nitrogen/Creatinine [Mass ratio] 7.2 mg/mg [facility] Laboratory - Hematology and Cell countson 05-16-2023 Immature granulocytes/100 WBC (Bld) 0.2 % 0.0-0.5 [facility] Leukocytes [#/volume] correc arin for nucleated erythrocytes in Blood by Automated counon 05-16-2023 WBC corrected for nucl RBC Auto (Bld) [#/Vol] 6.1 10 3/uL 4.0-11.0 [facility] Lymphocytes Auto (Bld) [#/Vo l]on 05-16-2023 Lymphocytes (Bld) [#/Vol] 2.2 10 3/uL 1.2-3.8 [facility] Lymphocytes/100 WBC Auto (Bl d)on 05-16-2023 Lymphocytes/100 WBC (Bld) 36.4 % 20.5-60.0 [facility] MCH Auto (RBC) [Entitic mass ]on 05-16-2023 MCH (RBC) [Entitic mass] 28.6 pg 26.7-34.0 [facility] MCHC Auto (RBC) [Mass/Vol]on 05-16-2023 MCHC (RBC) [Mass/Vol] 32.0 g/dL 29.9-35.2 [facility] MCV Auto (RBC) [Entitic vol] on 05-16-2023 MCV (RBC) [Entitic vol] 89.4 fL 81.0-99.0 [facility] Monocytes Auto (Bld) [#/Vol] on 05-16-2023 Monocytes (Bld) [#/Vol] 0.5 10 3/uL 0.3-0.8 [facility] Monocytes/100 WBC Auto (Bld) on 05-16-2023 Monocytes/100 WBC (Bld) 7.8 % 1.7-12.0 [facility] Neutrophils Auto (Bld) [#/Vo l]on 05-16-2023 Neutrophils (Bld) [#/Vol] 3.3 10 3/uL 1.4-6.5 [facility] Neutrophils/100 WBC Auto (Bl d)on 05-16-2023 Neutrophils/100 WBC (Bld) 53.8 % 43.0-75.0 [facility] No Panel Informationon 05-16 Eosinophils # (Auto) 0.1 10 3/uL 0.0-0.7 [facility] Immature Granulocyte # (Auto) 0.01 10 3/uL 0.00-0.03 [facility] Platelet mean volume Auto (B ld) [Entitic vol]on 05-16-2023 Platelet mean volume (Bld) [Entitic vol] 10.7 fL 9.5-13.5 [facility] Platelets Auto (Bld) [#/Vol] on 05-16-2023 Platelets (Bld) [#/Vol] 296 10 3/uL 150-450 [facility] RBC Auto (Bld) [#/Vol]on RBC (Bld) [#/Vol] 4.61 10 6/uL 4.20-5.40 [facility] Serum or plasma albumin/glob ulin mass ratioon 05-16-2023 Albumin/Globulin [Mass ratio] 0.6 {ratio} [facility] Serum or plasma anion gap de terminationon 05-16-2023 Anion gap [Moles/Vol] 9.9 mmol/L [facility] PROF CHEM 8 (BAS METB)on Anion gap [Moles/Vol] 14.7 mmol/L Normal e [facility] Comment on above: Performed By: #### L IPID, [id number] #### [facility] [address] [address] [address] Meaghan Gannon Calcium [Mass/Vol] 9.3 mg/dL Normal 8.5-10.1 [facility] Comment on above: Performed By: #### L IPID [id number] #### [facility] [address] [place] [address] Dr. Meaghan Gannon Chloride [Moles/Vol] 99 mmol/L Normal 98-107 [facility] Comment on above: Performed By: #### L IPID [id number] #### [facility] [address] [place] [address] Dr. Meaghan Gannon CO2 [Moles/Vol] 29.3 mmol/L Normal 21.0-32.[address] [facility] Comment on above: Performed By: #### L IPID [id number] #### [facility] [address] [place] [address] Dr. Meaghan Gannon Creatinine [Mass/Vol] 0.85 mg/dL Normal 0.55-1.02 [facility] Comment on above: Performed By: #### L IPID [id number] #### [facility] [address] [place] [address] Dr. Meaghan Gannon EGFR-AF KENYAN >60 Normal >=[address] [facility] Comment on above: Performed By: #### L IPID [id number] #### [facility] [address] [place] [address] Dr. Meaghan Gannon EGFR-NON AF KENYAN >60 Normal >=60 [facility] Comment on above: Performed By: #### L IPID [id number] #### [facility] [address] [place] [address] Dr. Meaghan Gannon Glucose [Mass/Vol] 89 mg/dL Normal 74-106 [facility] Comment on above: Performed By: #### L IPID, [id number] #### [facility] [address] [place] [address] Dr. Meaghan Gannon Potassium [Moles/Vol] 4.0 mmol/L Normal 3.5-5.1 [facility] Comment on above: Performed By: #### L IPID [id number] #### [facility] [address] [address] [address] Meaghna Gannon Sodium [Moles/Vol] 139 mmol/L Normal 136-145 [facility] Comment on above: Performed By: #### L IPID, [id number] #### [facility] [address] [address] [address] Meaghan Gannon Urea nitrogen [Mass/Vol] 9.0 mg/dL Normal 7.0-18.0 [facility] Comment on above: Performed By: #### L IPID, [id number] #### [facility] [address] [address] [address] Meaghan Gannon Urea nitrogen/Creatinine [Mass ratio] 10.6 mg/mg Normal [facility] Comment on above: Performed By: #### L IPID, [id number] #### [facility] [address] [address] [address] Meaghan Gannon XR HAND HAI MIN [...] JANINE FELDMAN Date: 2022-06-27 08:38 Normal [facility] CBC AUTO DIFFon 06-26-2022 BASO # 0.0 103/ul Normal 0.0-0.1 [facility] Comment on above: Performed By: #### C BC #### [facility] [address] [address] [address] Meaghan Gannon Basophils/100 WBC (Bld) 0.3 % Normal 0.2-2.0 [facility] Comment on above: Performed By: #### C BC #### [facility] [address] [place] [address] Dr. Meaghan Gannon EO # 0.2 103/ul Normal 0.0-0.7 [facility] Comment on above: Performed By: #### C BC #### [facility] [address] [place] [address] Dr. Meaghan Gannon Eosinophils/100 WBC (Bld) 2.0 % Normal 0.9-7.0 [facility] Comment on above: Performed By: #### C BC #### [facility] [address] [place] [address] Dr. Meaghan Gannon Erythrocyte distribution width (RBC) [Ratio] 15.9 % Critically high 11.0-15.0 [facility] Comment on above: Performed By: #### C BC #### [facility] [address] [place] [address] Dr. Meaghan Gannon Hematocrit (Bld) [Volume fraction] 44.3 % Normal 36.0-48.0 [facility] Comment on above: Performed By: #### C BC #### [facility] [address] [place] [address] Dr. Meaghan Gannon Hemoglobin (Bld) [Mass/Vol] 14.3 g/dL Normal 12.0-16.0 [facility] Comment on above: Performed By: #### C BC #### [facility] [address] [place] [address] Dr. Meaghan Gannon IG # 0.03 10e3/ul Normal 0.00-0.03 [facility] Comment on above: Performed By: #### C BC #### [facility] [address] [place] [address] Dr. Meaghan Gannon IG % 0.3 % Normal 0.0-0.5 [facility] Comment on above: Performed By: #### C BC #### [facility] [address] [address] [address] Meaghan Gannon LYMPH # 2.4 103/ul Normal 1.2-3.8 [facility] Comment on above: Performed By: #### C BC #### [facility] [address] [place] [address] Dr. Meaghan Gannon Lymphocytes/100 WBC (Bld) 24.2 % Normal 20.5-60.0 [facility] Comment on above: Performed By: #### C BC #### [facility] [address] [place] [address] Dr. Meaghan Gannon MANUAL DIFF REQ NO Normal [facility] Comment on above: Performed By: #### C BC #### [facility] [address] [place] [address] Dr. Meaghan Gannon MCH (RBC) [Entitic mass] 29.1 pg Normal 26.7-34.0 [facility] Comment on above: Performed By: #### C BC #### [facility] [address] [place] [address] Dr. Meaghan Gannon MCHC (RBC) [Mass/Vol] 32.3 g/dL Normal 29.9-35.2 [facility] Comment on above: Performed By: #### C BC #### [facility] [address] [place] [address] Dr. Meaghan Gannon MCV (RBC) [Entitic vol] 90.2 fL Normal 81.0-99.0 [facility] Comment on above: Performed By: #### C BC #### [facility] [address] [place] [address] Dr. Meaghan Gannon MONO # 0.9 103/ul Critically high 0.3-0.8 [facility] Comment on above: Performed By: #### C BC #### [facility] [address] [place] [address] Dr. Meaghan Gannon Monocytes/100 WBC (Bld) 9.1 % Normal 1.7-12.0 [facility] Comment on above: Performed By: #### C BC #### [facility] [address] [address] [address] Meaghan Gannon NEUT # 6.2 103/ul Normal 1.4-6.5 [facility] Comment on above: Performed By: #### C BC #### [facility] [address] [place] [address] Dr. Meaghan Gannon Neutrophils/100 WBC (Bld) 64.1 % Normal 43.0-75.0 [facility] Comment on above: Performed By: #### C BC #### [facility] [address] [place] [address] Dr. Meaghan Gannon Platelet mean volume (Bld) [Entitic vol] 10.5 fL Normal 9.5-13.5 [facility] Comment on above: Performed By: #### C BC #### [facility] [address] [place] [address] Dr. Meaghan Gannon PLT 341 103/ul Normal 150-450 [facility] Comment on above: Performed By: #### C BC #### [facility] [address] [place] [address] Dr. Meaghan Gannon RBC 4.91 106/ul Normal 4.20-5.40 [facility] Comment on above: Performed By: #### C BC #### [facility] [address] [place] [address] Dr. Meaghan Gannon WBC 9.7 103/ul Normal 4.0-11.0 [facility] Comment on above: Performed By: #### C BC #### [facility] [address] [place] [address] Dr. Meaghan Gannon CRPon 06-26-2022 CRP [Mass/Vol] mg/L Normal <=1.0 [facility] Comment on above: Performed By: #### L IPID, [id number] #### [facility] [address] [place] [address] Dr. Meaghan Gannon LIPID PROFILEon 06-26-2022 CHOL-HDL RATIO NORM SEE BELOW Normal [facility] Comment on above: Result Comment: 3.3 - 4.4 LOW RISK 4.4 - 7.1 AVERAGE RISK 7.1 - 11.0 MODERATE RISK >11.0 HIGH RISK Performed By: #### L IPID, [id number] #### [facility] [address] [address] [address] Meaghan Gannon Cholesterol [Mass/Vol] 146 mg/dL Normal <=200 [facility] Comment on above: Performed By: #### L IPID, [id number] #### [facility] [address] [address] [address] Meaghan Gannon Cholesterol in HDL [Mass/Vol] 43 mg/dL Normal 40-60 [facility] Comment on above: Performed By: #### L IPID, [id number] #### [facility] [address] [place] [address] Dr. Meaghan Gannon Cholesterol in LDL [Mass/Vol] 76.2 mg/dL Normal [facility] Comment on above: Performed By: #### L IPID, [id number] #### [facility] [address] [place] [address] Dr. Meaghan Gannon Cholesterol.total/Chol esterol in HDL [Mass ratio] 3.4 {ratio} Normal [facility] Comment on above: Performed By: #### L IPID, [id number] #### [facility] [address] [place] [address] Dr. Meaghan Gannon HDL NORMAL > or = 60 mg/dl - LO W CARDIOVASCULAR RISK <40 mg/dl - HIGH CARDIOVASCULAR RISK Normal [facility] Comment on above: Performed By: #### L IPID, [id number] #### [facility] [address] [place] [address] Dr. Meaghan Gannon LDL CALC NORMAL SEE BELOW Normal [facility] Comment on above: Result Comment: <100 mg/dl OPTIMAL 100 - 129 mg/dl NEAR OR ABOVE OPTIMAL 130 - 159 mg/dl BORDERLINE HIGH 160 - 189 mg/dl HIGH >190 mg/dl VERY HIGH Performed By: #### L IPID, [id number] #### [facility] [address] [place] [address] Dr. Meaghan Gannon Triglyceride [Mass/Vol] 134 mg/dL Normal <=150 [facility] Comment on above: Performed By: #### L IPID, [id number] #### [facility] [address] [address] [address] Meaghan Gannon VLDL CALC 26.8 mg/dL Normal [facility] Comment on above: Performed By: #### L IPID, [id number] #### [facility] [address] [address] [address] Meaghan Gannon PROF 14(COMP METB)on 023 Albumin [Mass/Vol] 3.6 g/dL Normal 3.4-5.0 [facility] Comment on above: Performed By: #### L IPID, [id number] #### [facility] [address] [place] [address] Dr. Meaghan Gannon Albumin/Globulin [Mass ratio] 0.8 {ratio} Normal [facility] Comment on above: Performed By: #### L IPID, [id number] #### [facility] [address] [address] [address] Meaghan Gannon ALP [Catalytic activity/Vol] 99 U/L Normal 46-116 [facility] Comment on above: Performed By: #### L IPID, [id number] #### [facility] [address] [place] [address] Dr. Meaghan Gannon ALT [Catalytic activity/Vol] 21 U/L Normal 14-59 [facility] Comment on above: Performed By: #### L IPID, [id number] #### [facility] [address] [address] [address] Meaghan Gannon Anion gap [Moles/Vol] 12.9 mmol/L Normal [facility] Comment on above: Performed By: #### L IPID, [id number] #### [facility] [address] [place] [address] Dr. Meaghan Gannon AST [Catalytic activity/Vol] 54 U/L Critically high 15-37 [facility] Comment on above: Performed By: #### L IPID, [id number] #### [facility] [address] [address] [address] Meaghan Gannon Bilirubin [Mass/Vol] 0.7 mg/dL Normal 0.2-1.0 [facility] Comment on above: Performed By: #### L IPID, [id number] #### [facility] [address] [address] [address] Meaghan Gannon Calcium [Mass/Vol] 10.1 mg/dL Normal 8.5-10.1 [facility] Comment on above: Performed By: #### L IPID, [id number] #### [facility] [address] [place] [address] Dr. Meaghan Gannon Chloride [Moles/Vol] 101 mmol/L Normal 98-107 [facility] Comment on above: Performed By: #### L IPID, [id number] #### [facility] [address] [place] [address] Dr. Meaghan Gannon CO2 [Moles/Vol] 30.2 mmol/L Normal 21.0-32.[address] [facility] Comment on above: Performed By: #### L IPID, [id number] #### [facility] [address] [place] [address] Dr. Meaghan Gannon Creatinine [Mass/Vol] 0.93 mg/dL Normal 0.55-1.02 [facility] Comment on above: Performed By: #### L IPID, [id number] #### [facility] [address] [place] [address] Dr. Meaghan Gannon EGFR-AF KENYAN >60 Normal >=[address] [facility] Comment on above: Performed By: #### L IPID, [id number] #### [facility] [address] [place] [address] Dr. Meaghan Gannon EGFR-NON AF KENYAN >60 Normal >=60 [facility] Comment on above: Performed By: #### L IPID, [id number] #### [facility] [address] [place] [address] Dr. Meaghan Gannon Globulin (S) [Mass/Vol] 4.3 g/dL Normal [facility] Comment on above: Performed By: #### L IPID, [id number] #### [facility] [address] [address] [address] Meaghan Gannon Glucose [Mass/Vol] 100 mg/dL Normal 74-106 [facility] Comment on above: Performed By: #### L IPID, [id number] #### [facility] [address] [place] [address] Dr. Meaghan Gannon Potassium [Moles/Vol] 4.1 mmol/L Normal 3.5-5.1 [facility] Comment on above: Performed By: #### L IPID, [id number] #### [facility] [address] [place] [address] Dr. Meaghan Gannon Protein [Mass/Vol] 7.9 g/dL Normal 6.4-8.2 [facility] Comment on above: Performed By: #### L IPID, [id number] #### [facility] [address] [place] [address] Dr. Meaghan Gannon Sodium [Moles/Vol] 140 mmol/L Normal 136-145 [facility] Comment on above: Performed By: #### L IPID, [id number] #### [facility] [address] [place] [address] Dr. Meaghan Gannon Urea nitrogen [Mass/Vol] 10.0 mg/dL Normal 7.0-18.0 [facility] Comment on above: Performed By: #### L IPID, [id number] #### [facility] [address] [place] [address] Dr. Meaghan Gannon Urea nitrogen/Creatinine [Mass ratio] 10.8 mg/mg Normal [facility] Comment on above: Performed By: #### L IPID, [id number] #### [facility] [address] [place] [address] Dr. Meaghan Gannon SED RATE [facility] 2022 SED RATE 32 mm/hr Critically high <=30 [facility] Comment on above: Performed By: #### S EDR #### [facility] [address] [place] [address] Dr. Meaghan Gannon TSH W/ REFLEX TO FT4on 06-26 TSH 0.637 uIU/mL Normal 0.358-3.74 0 [facility] Comment on above: Performed By: #### L IPID, [id number] #### [facility] [address] [address] [address] Meaghan Gannon XR CHEST 2 Von [...] by: ROSETTA MANNING Date: 2022-06-26 12:48 Normal [facility] Albumin [Mass/volume] in Ser um or PlasmaOrdered By: Ed Snyder on 05-02-2022 Albumin [Mass/Vol] 4.2 g/dL 3.2-5.5 [facility] Basophils Auto (Bld) [#/Vol] Ordered By: Ed Snyder on 05-02-2022 Basophils (Bld) [#/Vol] 0.1 10*3/uL 0.0-0.2 [facility] Basophils/100 WBC Auto (Bld) Ordered By: Ed Snyder on 05-02-2022 Basophils/100 WBC (Bld) 0.6 % . [facility] Creatinine and Glomerular fi ltration rate.predicted panel (S/P/Bld)Ordered By: Ed Snyder on 05-02-2022 Creatinine [Mass/Vol] 0.89 mg/dL 0.44-1.03 [facility] Eosinophils Auto (Bld) [#/Vo l]Ordered By: Ed Snyder on 05-02-2022 Eosinophils (Bld) [#/Vol] 0.0 10*3/uL 0.0-0.45 [facility] Eosinophils/100 WBC Auto (Bl d)Ordered By: Ed Snyder on 05-02-2022 Eosinophils/100 WBC (Bld) 0.5 % . [facility] Erythrocyte distribution wid th Auto (RBC) [Ratio]Ordered By: Ed Snyder on 05-02-2022 Erythrocyte distribution width (RBC) [Ratio] 14.8 % 11.9-15.3 [facility] Erythrocyte sedimentation ra te by Photometric methodOrdered By: Ed Snyder on 05-02-2022 ESR Photometric method (Bld) [Velocity] 62 mm/hr 0-29 [facility] Estimated glomerular filtrat ion rate (GFR) non- AmericanOrdered By: Ed Snyder on 05-02-2022 GFR/1.73 sq M.predicted among non-blacks MDRD (S/P/Bld) [Vol rate/Area] > 60 mL/Min [facility] Globulin Calc (S) [Mass/Vol] Ordered By: Ed Snyder on 05-02-2022 Globulin (S) [Mass/Vol] 3.4 g/dL [facility] Hematocrit Auto (Bld) [Volum e fraction]Ordered By: Ed Snyder on 05-02-2022 Hematocrit (Bld) [Volume fraction] 46.9 % 34.0-46.4 [facility] Hemoglobin [Mass/volume] in BloodOrdered By: Ed Snydre on 05-02-2022 Hemoglobin (Bld) [Mass/Vol] 15.2 g/dL 11.8-15.4 [facility] Leukocytes [#/volume] correc arin for nucleated erythrocytes in Blood by Automated counOrdered By: Ed Synder on 05-02-2022 WBC corrected for nucl RBC Auto (Bld) [#/Vol] 9.5 10*3/uL 3.8-11.6 [facility] Lymphocytes Auto (Bld) [#/Vo l]Ordered By: Ed Snyder on 05-02-2022 Lymphocytes (Bld) [#/Vol] 2.6 10*3/uL 1.00-4.8 [facility] Lymphocytes/100 WBC Auto (Bl d)Ordered By: Ed Snyder on 05-02-2022 Lymphocytes/100 WBC (Bld) 27.5 % . [facility] MCH Auto (RBC) [Entitic mass ]Ordered By: Ed Snyder on 05-02-2022 MCH (RBC) [Entitic mass] 28.5 pg 24.7-34.3 [facility] MCHC Auto (RBC) [Mass/Vol]Or dered By: Ed Snyder on 05-02-2022 MCHC (RBC) [Mass/Vol] 32.4 g/dL 32.0-35.0 [facility] MCV Auto (RBC) [Entitic vol] Ordered By: Ed Snyder on 05-02-2022 MCV (RBC) [Entitic vol] 88.1 fL 80-100 [facility] Monocytes Auto (Bld) [#/Vol] Ordered By: Ed Snyder on 05-02-2022 Monocytes (Bld) [#/Vol] 1.0 10*3/uL 0.0-0.8 [facility] Monocytes/100 WBC Auto (Bld) Ordered By: Ed Snyder on 05-02-2022 Monocytes/100 WBC (Bld) 10.3 % . [facility] Neutrophils Auto (Bld) [#/Vo l]Ordered By: Ed Snyder on 05-02-2022 Neutrophils (Bld) [#/Vol] 5.8 10*3/uL 1.8-7.7 [facility] Neutrophils/100 WBC Auto (Bl d)Ordered By: Ed Snyder on 05-02-2022 Neutrophils/100 WBC (Bld) 61.1 % . [facility] No Panel InformationOrdered By: Ed Snyder on 05-02-2022 Estimated GFR () > 60 mL/Min [facility] Comment on above: GFR estimated refere nce range: According to KDOQI guidelines, <60 ml/min/1.73m2 is sufficient to diagnose a patient with chronic kidney disease. Pharmacy Creatinine Clearance (Chem N/A [facility] Nucleated erythrocytes [Pres ence] in Blood by Automated countOrdered By: Ed Snyder on 05-02-2022 Nucleated RBC Auto Ql (Bld) 0.1 /100{WBC} 0-0.5 [facility] Platelet mean volume Auto (B ld) [Entitic vol]Ordered By: Ed Snyder on 05-02-2022 Platelet mean volume (Bld) [Entitic vol] 10.2 fL 6.3-10.7 [facility] Platelets Auto (Bld) [#/Vol] Ordered By: Ed Snyder on 05-02-2022 Platelets (Bld) [#/Vol] 357 10*3/uL 150-450 [facility] Protein [Mass/volume] in Ser um or PlasmaOrdered By: Ed Snyder on 05-02-2022 Protein [Mass/Vol] 7.6 g/dL 6.1-7.9 [facility] RBC Auto (Bld) [#/Vol]Ordere d By: Ed Snyder on 05-02-2022 RBC (Bld) [#/Vol] 5.32 10*6/uL 3.60-5.00 [facility] Serum or plasma alanine ramos otransferase measurement without P-5'-P (enzymatic activiOrdered By: Ed Snyder on 05-02-2022 ALT No additional P-5'-P [Catalytic activity/Vol] 12 U/L 10-60 [facility] Serum or plasma albumin/glob ulin mass ratioOrdered By: Ed Snyder on 05-02-2022 Albumin/Globulin [Mass ratio] 1.2 {ratio} [facility] Serum or plasma alkaline christine sphatase measurement (enzymatic activity/volume)Ordered By: Ed Snyder on 05-02-2022 ALP [Catalytic activity/Vol] 105 U/L 32-92 [facility] Serum or plasma anion gap de terminationOrdered By: Ed Snyder on 05-02-2022 Anion gap [Moles/Vol] 12.9 mmol/L 6.0-15.0 [facility] Serum or plasma aspartate am inotransferase measurement (enzymatic activity/volume)Ordered By: Ed Snyder on 05-02-2022 AST [Catalytic activity/Vol] 16 U/L 10-42 [facility] Serum or plasma calcium tiara urement (mass/volume)Ordered By: Ed Snyder on 05-02-2022 Calcium [Mass/Vol] 9.9 mg/dL 8.2-10.2 [facility] Serum or plasma chloride levar surement (moles/volume)Ordered By: Ed Snyder on 02-14-2023 Chloride [Moles/Vol] 99 mmol/L 95-[address] [facility] Serum or plasma glucose tiara urement (mass/volume)Ordered By: Ed Snyder on 05-02-2022 Glucose [Mass/Vol] 91 mg/dL 70-100 [facility] Comment on above: ADA recommended refe rence rangeRandom Glucose Reference Range is dependent on time and content of last meal. Glucose of more than 200 mg/dL in a nonstressed, ambulatory subject supports the diagnosis of Diabetes Mellitus. Serum or plasma potassium me asurement (moles/volume)Ordered By: Ed Snyder on 05-02-2022 Potassium [Moles/Vol] 4.5 mmol/L 3.5-5.1 [facility] Serum or plasma sodium measu rement (moles/volume)Ordered By: Ed Snyder on 05-02-2022 Sodium [Moles/Vol] 134 mmol/L 136-146 [facility] Serum or plasma total biliru bin measurement (mass/volume)Ordered By: Ed Snyder on 05-02-2022 Bilirubin [Mass/Vol] 0.7 mg/dL 0.3-1.[address] [facility] Serum or plasma total carbon dioxide measurement (moles/volume)Ordered By: Ed Snyder on 05-02-2022 CO2 [Moles/Vol] 26.6 mmol/L 22.0-30.0 [facility] Serum or plasma urea nitroge n measurement (mass/volume)Ordered By: Ed Snyder on 05-02-2022 Urea nitrogen [Mass/Vol] 10 mg/dL 9-23 [facility] WBC Auto (Bld) [#/Vol]Ordere d By: Ed Snyder on 05-02-2022 WBC (Bld) [#/Vol] 9.5 10*3/uL 3.8-11.6 [facility] Urinalysis - AUTOMATEDon Appearance (U) Cloudy [employer] Other Bilirubin Ql (U) Negative [employer] Other Color (U) Light Yellow [employer] Other Glucose Ql (U) 250 [employer] Other Hemoglobin Ql (U) Small [facility] [employer] Other Ketones Ql (U) Negative [employer] Other Leukocyte esterase Test strip Ql (U) Trace [employer] Other Nitrite Ql (U) Negative [employer] Other pH (U) 5.0 [pH] [employer] Other Protein Ql (U) Negative [employer] Other Specific gravity (U) [Rel density] 1.015 [employer] Other Urobilinogen (U) [Mass/Vol] 0.2 mg/dL [employer] Other Urinalysis - AUTOMATED No rt [employer] Other Urine Cultureon 03-15-2022 Bacteria identified Cx Nom (U) [employer] Other Urine culture routineOrdered By: Drew White on 03-15-2022 Bacteria identified Cx Nom (U) bacilli - 2 Days [facility] MAGNESIUMon 01-31-2022 Magnesium [Mass/Vol] 2.1 mg/dL Normal 1.8-2.4 [facility] Comment on above: Performed By: #### C MP, MG, TSH #### [facility] [address] [address] [address] Meaghan Gannon PROF 14(COMP METB)on 022 Albumin [Mass/Vol] 3.5 g/dL Normal 3.4-5.0 [facility] Comment on above: Performed By: #### C MP, MG, TSH #### [facility] [address] [address] [address] Meaghan Gannon Albumin/Globulin [Mass ratio] 0.8 {ratio} Normal [facility] Comment on above: Performed By: #### C MP, MG, TSH #### [facility] [address] [address] [address] Meaghan Gannon ALP [Catalytic activity/Vol] 103 U/L Normal 46-116 [facility] Comment on above: Performed By: #### C MP, MG, TSH #### [facility] [address] [address] [address] Meaghan Gannon ALT [Catalytic activity/Vol] 13 U/L Critically low 14-59 [facility] Comment on above: Performed By: #### C MP, MG, TSH #### [facility] [address] [address] [address] Meaghan Gannon Anion gap [Moles/Vol] 9.8 mmol/L Normal [facility] Comment on above: Performed By: #### C MP, MG, TSH #### [facility] [address] [address] [address] Meaghan Gannon AST [Catalytic activity/Vol] 39 U/L Critically high 15-37 [facility] Comment on above: Performed By: #### C MP, MG, TSH #### [facility] [address] [address] [address] Meaghan Gannon Bilirubin [Mass/Vol] 0.5 mg/dL Normal 0.2-1.0 [facility] Comment on above: Performed By: #### C MP, MG, TSH #### [facility] [address] [address] [address] Meaghan Gannon Calcium [Mass/Vol] 9.7 mg/dL Normal 8.5-10.1 [facility] Comment on above: Performed By: #### C MP, MG, TSH #### [facility] [address] [address] [address] Meaghan Gannon Chloride [Moles/Vol] 102 mmol/L Normal 98-107 [facility] Comment on above: Performed By: #### C MP, MG, TSH #### [facility] [address] [address] [address] Meaghan Gannon CO2 [Moles/Vol] 29.0 mmol/L Normal 21.0-32.0 [facility] Comment on above: Performed By: #### C MP, MG, TSH #### [facility] [address] [address] [address] Meaghan Gannon Creatinine [Mass/Vol] 0.94 mg/dL Normal 0.55-1.02 [facility] Comment on above: Performed By: #### C MP, MG, TSH #### [facility] [address] [address] [address] Meaghan Gannon EGFR-AF KENYAN >60 Normal >=[address] [facility] Comment on above: Performed By: #### C MP, MG, TSH #### [facility] [address] [address] [address] Meaghan Gannon EGFR-NON AF KENYAN =60 Normal >=60 [facility] Comment on above: Performed By: #### C MP, MG, TSH #### [facility] [address] [address] [address] Meaghan Gannon Globulin (S) [Mass/Vol] 4.5 g/dL Normal [facility] Comment on above: Performed By: #### C MP, MG, TSH #### [facility] [address] [address] [address] Meaghan Gannon Glucose [Mass/Vol] 89 mg/dL Normal 74-106 [facility] Comment on above: Performed By: #### C MP, MG, TSH #### [facility] [address] [address] [address] Meaghan Gannon Potassium [Moles/Vol] 3.8 mmol/L Normal 3.5-5.1 [facility] Comment on above: Performed By: #### C MP, MG, TSH #### [facility] [address] [place] [address] Dr. Meaghan Gannon Protein [Mass/Vol] 8.0 g/dL Normal 6.4-8.2 [facility] Comment on above: Performed By: #### C MP, MG, TSH #### [facility] [address] [place] [address] Dr. Meaghan Gannon Sodium [Moles/Vol] 137 mmol/L Normal 136-145 [facility] Comment on above: Performed By: #### C MP, MG, TSH #### [facility] [address] [place] [address] Dr. Meaghan Gannon Urea nitrogen [Mass/Vol] 18.0 mg/dL Normal 7.0-18.0 [facility] Comment on above: Performed By: #### C MP, MG, TSH #### [facility] [address] [place] [address] Dr. Meaghan Gannon Urea nitrogen/Creatinine [Mass ratio] 19.1 mg/mg Normal [facility] Comment on above: Performed By: #### C MP, MG, TSH #### [facility] [address] [place] [address] Dr. Meaghan Gannon TSHon 01-31-2022 TSH 1.188 uIU/mL Normal 0.358-3.74 0 [facility] Comment on above: Performed By: #### C MP, MG, TSH #### [facility] [address] [place] [address] Dr. Meaghan Gannon MAGNESIUMon 09-29-2021 Magnesium [Mass/Vol] 2.1 mg/dL Normal 1.8-2.4 [facility] Comment on above: Performed By: #### L IPID, [id number] #### [facility] [address] [place] [address] Dr. Meaghan Gannon PROF CHEM 8 (BAS METB)on Anion gap [Moles/Vol] 10.7 mmol/L Normal [facility] Comment on above: Performed By: #### L IPID, [id number] #### [facility] [address] [place] [address] Dr. Meaghan Gannon Calcium [Mass/Vol] 9.5 mg/dL Normal 8.5-10.1 [facility] Comment on above: Performed By: #### L IPID, [id number] #### [facility] [address] [place] [address] Dr. Meaghan Gannon Chloride [Moles/Vol] 103 mmol/L Normal 98-107 [facility] Comment on above: Performed By: #### L IPID [id number] #### [facility] [address] [address] [address] Meaghan Gannon CO2 [Moles/Vol] 30.4 mmol/L Normal 21.0-32.0 [facility] Comment on above: Performed By: #### L IPID [id number] #### [facility] [address] [address] [address] Meaghan Gannon Creatinine [Mass/Vol] 1.13 mg/dL Critically high 0.55-1.02 [facility] Comment on above: Performed By: #### L IPID [id number] #### [facility] [address] [place] [address] Dr. Meaghan Gannon EGFR-AF KENYAN 59 mL/min/1.73m2 Critically low >=60 [facility] Comment on above: Performed By: #### L IPID, [id number] #### [facility] [address] [place] [address] Dr. Meaghan Gannon EGFR-NON AF KENYAN 49 mL/min/1.73m2 Critically low >=60 [facility] Comment on above: Performed By: #### L IPID, [id number] #### [facility] [address] [place] [address] Dr. Meaghan Gannon Glucose [Mass/Vol] 93 mg/dL Normal 74-106 [facility] Comment on above: Performed By: #### L IPID, [id number] #### [facility] [address] [place] [address] Dr. Meaghan Gannon Potassium [Moles/Vol] 4.1 mmol/L Normal 3.5-5.1 [facility] Comment on above: Performed By: #### L IPID, [id number] #### [facility] [address] [address] [address] Meaghan Gannon Sodium [Moles/Vol] 140 mmol/L Normal 136-145 [facility] Comment on above: Performed By: #### L IPID, [id number] #### [facility] [address] [place], [place] [address] Dr. Meaghan Gannon Urea nitrogen [Mass/Vol] 18.0 mg/dL Normal 7.0-18.0 [facility] Comment on above: Performed By: #### L IPID, [id number] #### [facility] [address] [place], [place] [address] Dr. Meaghan Gannon Urea nitrogen/Creatinine [Mass ratio] 15.9 mg/mg Normal [facility] Comment on above: Performed By: #### L IPID, [id number] #### [facility] [address] [place], [place] [address] Dr. Meaghan Gannon Tobacco Screening.on 022 Adult depression screening assessment No [facility] 250 DO Work Phone: Tobacco use status CPHS b) No [facility] 250 DO Work Phone: Heart Rateon 06-07-2021 Heart Rate Regular [facility] 250 DO Work Phone: Office [...] All medical record entries made by the Antonietta were at my direction and personally dictated [...] BY MOUTH EVERY DAY Ergocalciferol 1.25 MG (73255 UT) Oral CapsuleTAKE 1 CAPSULE WEEKLY. Furosemide [...] Oral TabletTAKE 1 TABLET DAILY DIRECTED by [facility] Zoloft 50 MG Oral TabletTAKE 1 AND 1/2 TABLETS DAILY. Patient did not bring medications list or bottles. Updated verbally with patient. Allergies Medication Compazine Recorded By: Toshia Hyatt; 04/12/2021 7:02:42 AM Vitals Vital Signs Recorded: 07Jun2021 02:54PMRecorded: 07Jun2021 02:51PM [id number], LUE, Yjaygrw984, RUE, Sitting Twmesncfl97, LUE, Ujlyypc34, RUE, Sitting Heart Rate56, L Radial Pulse QualityRegular, L Radial Height5 ft 4 in Gqnzys559 lb BMI Npkobtjkmj93.58 kg/m2 BSA Calculated1.89 Signatures Electronically signed by [...] Persistent atrial fibrillation Lipid Panel; Status:Active; Requested for:[id number]; Benign essential hypertension, High risk medication use, Persistent atrial fibrillation ALT - Alanine Aminotransferase, Serum; Status:Active; Requested for:[id number]; AST; Status:Active; Requested for:[id number]; Basic Metabolic Panel; Status:Active; Requested for:[id number]; Complete Blood Count; Status:Active; Requested for:[id number]; SocHx: Never a smoker Tobacco Use Screening; Status:Complete; Done: [id number] Patient Instructions By signing my name below, [...] atrial fibrillation status post radiofrequency ablation at [facility] with recurrent atrial fibrillation, presently on sotalol [...] BY MOUTH EVERY DAY Ergocalciferol 1.25 MG (67017 UT) Oral CapsuleTAKE 1 CAPSULE WEEKLY. Furosemide [...] Oral TabletTAKE 1 TABLET DAILY DIRECTED by [facility] Zoloft 50 MG Oral TabletTAKE 1 AND 1/2 TABLETS DAILY. Allergies Medication Compazine Recorded By: Toshia Hyatt; 04/12/2021 7:02:42 (more content not included)... Normal [facility] Tobacco Screening.on 022 Tobacco use status CPHS b) No [facility] 250 DO Work Phone: Daily Progress Note-Electrop hysiologyon 05-14-2019 Daily Progress Note-Electrophysiology Service: Electrophysiology Subjective Data: ARIAN FRITZ is a 59 year old Female who is Hospital Day # 2. Additional Information: -Pt was examined at 9:45AM and tele reviewed -Pt was seen by EP fellowBen Joya MD this AM also -denies CP/dyspnea/LH/palps; cannot feel that she is in AFL -pt is NPO for DCCV today per Dr Wall Objective Data: Objective Information: T PRBPSpO2 [id number]/8697% Date/Time05/14 12: 13: 13: 13: 13:00 Range(36.2C [...] Pred, and AF on Coumadin (managed by [facility]). Follows with cards Dr Lynn. [...] -90d intermittent EM given to pt by Holter tech who instructed pt on use -F/u with cards Dr Lynn 1 month (pt to call for appt) -F/w Dr Wall 08/15/19 in [place] [address], [facility], [facility] Cardiac Electrophysiology Electronic Signatures for Addendum Section: William Espana ([facility]) (Signed Addendum 14-May-2019 16:21) Greater than 30 min spent on coordination of discharge. Electronic Signatures: William Espana ([facility]) (Signed 14-May-2019 16:21) Authored: Service, Subjective Data, Objective Data, Assessment and Plan, Signature/Cosignature/Att estation Last Updated: 14-May-2019 16:21 by William Espana ([facility]) Normal [facility] Discharge Planning [id number] 05-14-2019 Discharge Planning Note2 Discharge Planning: Anticipated Discharge [id number] Discharge Planning 05/14/19 16:45 Pt given discharge instructions. Prescription sent to pharmacy. Pt and pt's daughter verbalized understanding of discharge instructions. peripheral IV removed and pt removed from tele. right groin site dry/intact with no hematoma. No other discharge needs at this time- Galina Ventura fisheries diver: Discharge Planning Assessment [id number] Stated Reason for Admissionprocedure (1) [place] ([place]) [place](1) Living Arrangementshouse(1) Resource/Environmental Concernsnone(1) Anticipated Transition [place](1) Services Anticipated at Transitionnone(1) Electronic Signatures: Galina Ventura ([employer]) (Signed 14-May-2019 16:54) Authored: Discharge Planning Note2 Last Updated: 14-May-2019 16:54 by Galina Ventura ([employer]) References: 1. Data Referenced From Patient Profile - Adult v2 13-May-2019 08:21 Normal [facility] PT/INRon 05-14-2019 INR Coag (PPP) [Relative time] 2.5 {INR} High 0.9 - 1.1 [facility] Comment on above: Performed By: #### P TINR #### [facility] [address] [place] [address] PT Coag (PPP) [Time] 28.5 s High 9.7 - 12.7 [facility] Comment on above: Performed By: #### P TINR #### [facility] [address] [place] [address] ACT-HIGH RANGEon 05-13-2019 ACT-HIGH RANGE 221 SECONDS High 96 - 152 [facility] [place] Comment on above: Result Comment: Note new reference range as of 06/21/2018. Target ACT range will vary based on the patient population, clinical status, and surgical intervention occurring. Performed By: #### A CTP #### [facility] [address] [place] [address] ACT-HIGH RANGE 352 SECONDS High 96 - 152 [facility] [place] Comment on above: Result Comment: Note new reference range as of 06/21/2018. Target ACT range will vary based on the patient population, clinical status, and surgical intervention occurring. Performed By: #### A CTP #### [facility] [address] [place] [address] ACT-HIGH RANGE 360 SECONDS High 96 - 152 [facility] [place] Comment on above: Result Comment: Note new reference range as of 06/21/2018. Target ACT range will vary based on the patient population, clinical status, and surgical intervention occurring. Performed By: #### A CTP #### [facility] [address] [place] [address] ACT-HIGH RANGE 351 SECONDS High 96 - 152 [facility] [place] Comment on above: Result Comment: Note new reference range as of 06/21/2018. Target ACT range will vary based on the patient population, clinical status, and surgical intervention occurring. Performed By: #### A CTP #### [facility] [address] [place] [id number] ACT-HIGH RANGE 325 SECONDS High 96 - 152 [facility] [place] Comment on above: Result Comment: Note new reference range as of 06/21/2018. Target ACT range will vary based on the patient population, clinical status, and surgical intervention occurring. Performed By: #### A CTP #### [facility] [address] [place] [id number] ACT-HIGH RANGE 286 SECONDS High 96 - 152 [facility] [place] Comment on above: Result Comment: Note new reference range as of 06/21/2018. Target ACT range will vary based on the patient population, clinical status, and surgical intervention occurring. Performed By: #### A CTP #### [facility] [address] [place] [address] ACT-HIGH RANGE 288 SECONDS High 96 - 152 [facility] [facility] [place] Comment on above: Result Comment: Note new reference range as of 06/21/2018. Target ACT range will vary based on the patient population, clinical status, and surgical intervention occurring. Performed By: #### A CTP #### [facility] [id number] [place] [id number] Admission Risk Screen - Adul ton 05-13-2019 [...] Advance Directive typeLiving Will, Durable Power of Hedge Fund Principal for Healthcare Living Will AvailabilityLiving Will not available now Living Will [id number] Durable Power of Hedge Fund Principal AvailabilityDPOA not available now Durable Power of Hedge Fund Principal [id number] Durable Power of Hedge Fund Principal contact (name and number)pt doesn't know Falls Screen: Type of Assessmentadmission Moderate Risk Factorsnursing judgment (specify) High Risk Factorsnursing judgment (specify) Risk for Injury Associated with Fallcoagulation blood thinners (Coumadin, heparin gtt), coagulopathy Fall Risk Conclusionhigh falls risk with risk for associated injury Wilson Safety InterventionsWDL *orient to call system *instruct [...] instruction; verbal instruction Cultural Considerationsnone Developmental Considerationsnone Buddhist Considerationsnone Learning Assessment (Other Learner): Other learner [...] Spiritual Screen: Are there any cultural, spiritual, anglican practices/values/needs that are important for us to knowno CAGE: Is this an injured patient at a Trauma Center ([facility]/[place]/ [place]): no Vaccinations: Vaccination - Influenza Vaccination Screen: [...] 13-May-2019 08:20 by Galina Ventura (ESPINOZA) Normal [facility] History and Physicalon 05-13 History and Physical [...] and Coumadin. Pts INRs are managed by [facility] Coumadin clinic. She is currently having [...] oriented x 3. Assessment and Plan: Assessment: rAian Fritz is a 59 y/o female referred [...] and Coumadin. Pts INRs are managed by [facility] Coumadin clinic. She is currently having [...] the note. I personally evaluated the patient [id number] Attending Provider Inpatient Certification StatementI certify this [...] Objective, Assessment and Plan, Signatures/Attestation/Ce rtification Ben Joya (Fellow)) (Signed 13-May-2019 07:56) Authored: History of Present Illness, Comorbidities, Family History, Social History, Allergies, Medications Prior to Admission, Review of Systems, Objective, Assessment and Plan, Signatures/Attestation/Ce rtification Last Updated: 29-May-2019 07:48 by Jonathan Wall) Normal [facility] Patient Profile - Adult v2on 05-13-2019 Patient Profile - Adult v2 Profile: Initial Info: How to be AddressedDonna Spoken Language PreferredEnglish Source of Informationpatient Are you currently using the Personal Electronic Health Record or MYUHCAREno Are you interested in learning more about MYCARE for the management of your healthnot at this time Stated Reason for Admissionprocedure Wants Family/Rep Notified of Admissionno Notify PCPdo not notify PCP Informed of Patient Visiting Rightsyes [place] Patient Belongingsremains with patient Patient Belongings Remaining with Patientclothing Medications Brought to Hospitalno General Health: Weight in kg86.1 kilogram(s) Weight in gyn651 pound(s) Height in feet5 feet Height in inches5 inch(es) Height in cm165.1 centimeter(s) BMI (kg/m2)31.587 square meter Weight Methodstated Scale Typebed Height Methodstated [facility] Based Care: How would you [...] Withalone Living Arrangementshouse Resource/Environmental Concernsnone Anticipated Transition [place] Services Anticipated at Transitionnone Significant IndicatorsComplete Information Review: Allergies, Home Meds and Significant Events have been Reviewed and Verified with Patient/Familyyes ALLERGY, INTOLERANCE, ADVERSE EVENT: Allergies: Compazine: Drug, Unknown, Active Electronic Signatures: Galina Ventura (ESPINOZA) (Signed 13-May-2019 08:24) Authored: Profile, Additional Information Last Updated: 13-May-2019 08:24 by Galina Ventura) Normal [facility] Vital Signs Date Time Vital Sign Value Performing Clinician Facility 11-20-2024 14:29-0400 Body height 157.48 cm Ed Jered DO Work Phone: [facility] 11-20-2024 14:29-0400 Body mass index (BMI) [Ratio] 23.2 kg/m2 Ed Lawton DO Work Phone: [facility] 11-20-2024 14:29-0400 Body temperature 97.5 [degF] Ed Lawton DO Work Phone: [facility] 11-20-2024 14:29-0400 Body weight 57.6 kg Ed Lawton DO Work Phone: [facility] 11-20-2024 14:29-0400 Diastolic blood pressure 68 mm[Hg] Ed Lawton DO Work Phone: [facility] 11-20-2024 14:29-0400 Heart rate 72 /min Ed Lawton DO Work Phone: [facility] 11-20-2024 14:29-0400 Respiratory rate 18 /min Ed Lawton DO Work Phone: [facility] 11-20-2024 14:29-0400 SaO2% (BldA) [Mass fraction] 98 % Ed Lawton DO Work Phone: [facility] 11-20-2024 14:29-0400 Systolic blood pressure 110 mm[Hg] Ed Lawton DO Work Phone: [facility] 11-10-2024 [id number] Body height 158.8 cm Servando Umana MD Work Phone: [facility] 11-10-2024 14:09-0400 Body mass index (BMI) [Ratio] 23.04 kg/m2 Servando Umana MD Work Phone: [facility] 11-10-2024 14:09-0400 Body temperature 97.9 [degF] Servando Umana MD Work Phone: [facility] 11-10-2024 14:09-0400 Body weight 58.06 kg Servando Umana MD Work Phone: [facility] 11-10-2024 14:09-0400 Diastolic blood pressure 63 mm[Hg] Servando Umana MD Work Phone: [facility] 11-10-2024 14:09-0400 Heart rate 59 /min Servando Umana MD Work Phone: [facility] 11-10-2024 14:09-0400 SaO2% (BldA) [Mass fraction] 95 % Servando Umana MD Work Phone: [facility] Comment on above: Room air 11-10-2024 14:09-0400 Systolic blood pressure 97 mm[Hg] Servando Umana MD Work Phone: [facility] 09-02-2024 15:05-0400 Body height 158.8 cm Servando Umana MD Work Phone: [facility] 09-02-2024 15:05-0400 Body mass index (BMI) [Ratio] 22.25 kg/m2 Servando Umana MD Work Phone: [facility] 09-02-2024 15:05-0400 Body temperature 98.01 [degF] Servando Umana MD Work Phone: [facility] 09-02-2024 15:05-0400 Body weight 56.06 kg Servando Umana MD Work Phone: [facility] 09-02-2024 15:05-0400 Diastolic blood pressure 64 mm[Hg] Servando Umana MD Work Phone: [facility] 09-02-2024 15:05-0400 Heart rate 64 /min Servando Umana MD Work Phone: [facility] 09-02-2024 15:05-0400 SaO2% (BldA) [Mass fraction] 93 % Servando Umana MD Work Phone: [facility] Comment on above: Room air 09-02-2024 15:05-0400 Systolic blood pressure 105 mm[Hg] Servando Umana MD Work Phone: [facility] 07-31-2024 14:25-0400 Body height 157.48 cm PHYSICIAN NO [facility] 07-31-2024 14:25-0400 Body mass index (BMI) [Ratio] 22.3 kg/m2 PHYSICIAN NO [facility] 07-31-2024 14:25-0400 Body temperature 98 [degF] PHYSICIAN NO [facility] 07-31-2024 14:25-0400 Body weight 55.33 kg PHYSICIAN NO [facility] 07-31-2024 14:25-0400 Diastolic blood pressure 78 mm[Hg] PHYSICIAN NO [facility] 07-31-2024 14:25-0400 Heart rate 70 /min PHYSICIAN NO [facility] 07-31-2024 14:25-0400 Respiratory rate 18 /min PHYSICIAN NO [facility] 07-31-2024 14:25-0400 SaO2% (BldA) [Mass fraction] 94 % PHYSICIAN NO [facility] 07-31-2024 14:25-0400 Systolic blood pressure 106 mm[Hg] PHYSICIAN NO [facility] 07-09-2024 12:59-0400 Diastolic blood pressure 58 mm[Hg] Group [facility] 07-09-2024 12:59-0400 Heart rate 68 /min [facility] 07-09-2024 12:59-0400 Systolic blood pressure 95 mm[Hg] [facility] 07-09-2024 10:36-0400 Body temperature 97.7 [degF] [facility] 07-09-2024 10:36-0400 Respiratory rate 16 /min [facility] 07-09-2024 10:34-0400 Body mass index (BMI) [Ratio] 23.09 kg/m2 [facility] 07-09-2024 10:34-0400 Body weight 58.2 kg [facility] 06-25-2024 15:51-0400 Diastolic blood pressure 57 mm[Hg] [facility] 06-25-2024 15:51-0400 Heart rate 74 /min [facility] 06-25-2024 15:51-0400 Respiratory rate 16 /min [facility] 06-25-2024 15:51-0400 Systolic blood pressure 93 mm[Hg] [facility] 06-25-2024 11:09-0400 Body mass index (BMI) [Ratio] 22.5 kg/m2 [facility] 06-25-2024 11:09-0400 Body temperature 98.29 [degF] [facility] 06-25-2024 11:09-0400 Body weight 56.7 kg [facility] 06-25-2024 11:09-0400 SaO2% (BldA) [Mass fraction] 99 % [facility] 06-06-2024 11:42-0400 Body height 162.6 cm Bernarda Joya MD Work Phone: [facility] 06-06-2024 11:42-0400 Body mass index (BMI) [Ratio] 21.63 kg/m2 Bernarda Joya MD Work Phone: [facility] 06-06-2024 11:42-0400 Body weight 57.15 kg Bernarda Joya MD Work Phone: [facility] 06-06-2024 11:42-0400 Diastolic blood pressure 70 mm[Hg] Bernarda Joya MD Work Phone: [facility] 06-06-2024 11:42-0400 Heart rate 58 /min Bernarda Joya MD Work Phone: [facility] 06-06-2024 11:42-0400 SaO2% (BldA) [Mass fraction] 98 % Bernarda Joya MD Work Phone: [facility] 06-06-2024 11:42-0400 Systolic blood pressure 110 mm[Hg] Bernarda Joya MD Work Phone: [facility] 06-02-2024 15:05-0400 Body height 158.8 cm Servando Umana MD Work Phone: [facility] 06-02-2024 15:05-0400 Body mass index (BMI) [Ratio] 22.03 kg/m2 Servando Umana MD Work Phone: [facility] 06-02-2024 15:05-0400 Body temperature 97.5 [degF] Servando Umana MD Work Phone: [facility] 06-02-2024 15:05-0400 Body weight 55.52 kg Servando Umana MD Work Phone: [facility] 06-02-2024 15:05-0400 Diastolic blood pressure 82 mm[Hg] Servando Umana MD Work Phone: [facility] 06-02-2024 15:05-0400 Heart rate 73 /min Servando Umana MD Work Phone: [facility] 06-02-2024 15:05-0400 SaO2% (BldA) [Mass fraction] 95 % Servando Umana MD Work Phone: [facility] Comment on above: Room air 06-02-2024 15:05-0400 Systolic blood pressure 135 mm[Hg] Servando Umana MD Work Phone: [facility] 01-28-2024 14:38-0500 Body height 158.8 cm Servando Umana MD Work Phone: [facility] 01-28-2024 14:38-0500 Body mass index (BMI) [Ratio] 21.67 kg/m2 Servando Umana MD Work Phone: [facility] 01-28-2024 14:38-0500 Body temperature 97.59 [degF] Servando Umana MD Work Phone: [facility] 01-28-2024 14:38-0500 Body weight 54.61 kg Servando Umana MD Work Phone: [facility] 01-28-2024 14:38-0500 Diastolic blood pressure 80 mm[Hg] Servando Umana MD Work Phone: [facility] 01-28-2024 14:38-0500 Heart rate 67 /min Servando Umana MD Work Phone: [facility] 01-28-2024 14:38-0500 SaO2% (BldA) [Mass fraction] 95 % Servando Umana MD Work Phone: [facility] Comment on above: Room air 01-28-2024 14:38-0500 Systolic blood pressure 122 mm[Hg] Servando Umana MD Work Phone: [facility] 01-15-2024 12:47-0400 Body height 165.61 cm PHYSICIAN NO [facility] 01-15-2024 12:47-0400 Body mass index (BMI) [Ratio] 19.9 kg/m2 PHYSICIAN NO [facility] 01-15-2024 12:47-0400 Body weight 54.65 kg PHYSICIAN NO [facility] 01-15-2024 12:47-0400 Diastolic blood pressure 72 mm[Hg] PHYSICIAN NO [facility] 01-15-2024 12:47-0400 Heart rate 70 /min PHYSICIAN NO [facility] 01-15-2024 12:47-0400 SaO2% (BldA) [Mass fraction] 95 % PHYSICIAN NO [facility] 01-15-2024 12:47-0400 Systolic blood pressure 114 mm[Hg] PHYSICIAN NO [facility] 12-12-2023 15:11-0400 Body height 165.61 cm DO Ed Lawton Work Phone: [facility] 12-12-2023 15:11-0400 Body mass index (BMI) [Ratio] 18.9 kg/m2 DO Ed Lawton Work Phone: [facility] 12-12-2023 15:11-0400 Body weight 52 kg DO Ed Lawton Work Phone: [facility] 11-14-2023 13:00-0400 Body height 158.75 cm DO Ed Lawton Work Phone: [facility] 11-14-2023 13:00-0400 Body mass index (BMI) [Ratio] 20.5 kg/m2 DO Ed Jered Work Phone: [facility] 11-14-2023 13:00-0400 Body weight 51.7 kg DO Ed Jered Work Phone: [facility] 11-14-2023 13:00-0400 Diastolic blood pressure 70 mm[Hg] DO Ed Jered Work Phone: [facility] 11-14-2023 13:00-0400 Heart rate 61 /min DO Ed Jered Work Phone: [facility] 11-14-2023 13:00-0400 SaO2% (BldA) [Mass fraction] 98 % DO Ed Jered Work Phone: [facility] 11-14-2023 13:00-0400 Systolic blood pressure 120 mm[Hg] DO Ed Jered Work Phone: [facility] 10-17-2023 15:14-0400 Body height 158.75 cm DO Ed Jered Work Phone: [facility] 10-17-2023 15:14-0400 Body mass index (BMI) [Ratio] 20.3 kg/m2 DO Ed Jered Work Phone: [facility] 10-17-2023 15:14-0400 Body weight 51.25 kg DO Ed Jered Work Phone: [facility] 09-17-2023 15:31-0400 Diastolic blood pressure 84 mm[Hg] DO Ed Jered Work Phone: [facility] 09-17-2023 15:31-0400 Heart rate 81 /min DO Ed Jered Work Phone: [facility] 09-17-2023 15:31-0400 Respiratory rate 14 /min DO Ed Jered Work Phone: [facility] 09-17-2023 15:31-0400 SaO2% (BldA) [Mass fraction] 99 % DO Ed Lawton Work Phone: [facility] 09-17-2023 15:31-0400 Systolic blood pressure 129 mm[Hg] DO Ed Lawton Work Phone: [facility] 09-17-2023 12:47-0400 Body height 158.75 cm DO Ed Lawton Work Phone: [facility] 09-17-2023 12:47-0400 Body weight 51.71 kg DO Edpretty Lawton Work Phone: [facility] 09-14-2023 15:37-0400 Body mass index (BMI) [Ratio] 20.01 kg/m2 Neville Yee MD Work Phone: [facility] 09-14-2023 15:37-0400 Body temperature 97.81 [degF] Neville Yee MD Work Phone: [facility] 09-14-2023 15:37-0400 Body weight 52.89 kg Neville Yee MD Work Phone: [facility] 09-14-2023 15:37-0400 Diastolic blood pressure 76 mm[Hg] Neville Yee MD Work Phone: [facility] 09-14-2023 15:37-0400 Heart rate 72 /min Neville Yee MD Work Phone: [facility] 09-14-2023 15:37-0400 Respiratory rate 18 /min Neville Yee MD Work Phone: [facility] 09-14-2023 15:37-0400 SaO2% (BldA) [Mass fraction] 96 % Neville Yee MD Work Phone: [facility] 09-14-2023 15:37-0400 Systolic blood pressure 120 mm[Hg] Neville Yee MD Work Phone: [facility] 08-23-2023 15:53-0400 Body mass index (BMI) [Ratio] 19.87 kg/m2 Neville Yee MD Work Phone: [facility] 08-23-2023 15:53-0400 Body temperature 97.59 [degF] Neville Yee MD Work Phone: [facility] 08-23-2023 15:53-0400 Body weight 52.5 kg Neville Yee MD Work Phone: [facility] 08-23-2023 15:53-0400 Diastolic blood pressure 81 mm[Hg] Neville Yee MD Work Phone: [facility] 08-23-2023 15:53-0400 Heart rate 77 /min Neville Yee MD Work Phone: [facility] 08-23-2023 15:53-0400 Respiratory rate 16 /min Neville Yee MD Work Phone: [facility] 08-23-2023 15:53-0400 SaO2% (BldA) [Mass fraction] 97 % Neville Yee MD Work Phone: [facility] 08-23-2023 15:53-0400 Systolic blood pressure 138 mm[Hg] Neville Yee MD Work Phone: [facility] 08-08-2023 13:58-0400 Body height 162.56 cm PHYSICIAN [facility] 08-08-2023 13:58-0400 Body mass index (BMI) [Ratio] 19.3 kg/m2 PHYSICIAN [facility] 08-08-2023 13:58-0400 Body weight 51.25 kg PHYSICIAN [facility] 08-08-2023 13:58-0400 Diastolic blood pressure 72 mm[Hg] PHYSICIAN [facility] 08-08-2023 13:58-0400 Heart rate 77 /min PHYSICIAN [facility] 08-08-2023 13:58-0400 SaO2% (BldA) [Mass fraction] 95 % PHYSICIAN NO [facility] 08-08-2023 13:58-0400 Systolic blood pressure 120 mm[Hg] PHYSICIAN NO [facility] 05-21-2023 13:11-0500 Body height 162.6 cm Geno River MD Work Phone: [facility] 05-21-2023 13:11-0500 Body mass index (BMI) [Ratio] 20.25 kg/m2 Geno River MD Work Phone: [facility] 05-21-2023 13:11-0500 Body weight 53.52 kg Geno River MD Work Phone: [facility] 05-21-2023 13:11-0500 Diastolic blood pressure 70 mm[Hg] Geno River MD Work Phone: [facility] 05-21-2023 13:11-0500 Heart rate 71 /min Geno River MD Work Phone: [facility] 05-21-2023 13:11-0500 SaO2% (BldA) [Mass fraction] 96 % Geno River MD Work Phone: [facility] 05-21-2023 13:11-0500 Systolic blood pressure 90 mm[Hg] Geno River MD Work Phone: [facility] 05-10-2023 11:31-0500 Body height 162.56 cm PHYSICIAN NO [facility] 05-10-2023 11:31-0500 Body mass index (BMI) [Ratio] 20.4 kg/m2 PHYSICIAN NO [facility] 05-10-2023 11:31-0500 Body weight 53.97 kg PHYSICIAN NO [facility] 05-10-2023 11:31-0500 Diastolic blood pressure 80 mm[Hg] PHYSICIAN NO [facility] 05-10-2023 11:31-0500 Heart rate 72 /min PHYSICIAN NO [facility] 05-10-2023 11:31-0500 SaO2% (BldA) [Mass fraction] 95 % PHYSICIAN NO [facility] 05-10-2023 11:31-0500 Systolic blood pressure 110 mm[Hg] PHYSICIAN NO [facility] 01-17-2023 14:30-0400 Body height 163.83 cm Ed Lawton Other [employer] Other 01-17-2023 14:30-0400 Body mass index (BMI) [Ratio] 23.32 kg/m2 Ed Lawton Other [employer] Other 01-17-2023 14:30-0400 Body temperature 98.2 [degF] Ed Lawton Other [employer] Other 01-17-2023 14:30-0400 Body weight 62.6 kg Ed Lawton Other [employer] Other 01-17-2023 14:30-0400 Diastolic blood pressure 60 mm[Hg] Ed Lawton Other [employer] Other 01-17-2023 14:30-0400 SaO2% (BldA) [Mass fraction] 97 % Ed Lawton Other [employer] Other 01-17-2023 14:30-0400 Systolic blood pressure 90 mm[Hg] Ed Lawton Other [employer] Other 08-16-2022 15:00-0400 Body height 163.83 cm Ed Lawton Other [employer] Other 08-16-2022 15:00-0400 Body mass index (BMI) [Ratio] 26.53 kg/m2 Ed Lawton Other [employer] Other 08-16-2022 15:00-0400 Body temperature 97.7 [degF] Ed Lawton Other [employer] Other 08-16-2022 15:00-0400 Body weight 71.22 kg Ed Lawton Other [employer] Other 08-16-2022 15:00-0400 Diastolic blood pressure 60 mm[Hg] Ed Lawton Other [employer] Other 08-16-2022 15:00-0400 Respiratory rate 18 /min Ed Lawton Other [employer] Other 08-16-2022 15:00-0400 SaO2% (BldA) [Mass fraction] 97 % Ed Lawton Other [employer] Other 08-16-2022 15:00-0400 Systolic blood pressure 96 mm[Hg] Ed Lawton Other [employer] Other 07-26-2022 16:00-0400 Body height 163.83 cm Ed Lawton Other [employer] Other 07-26-2022 16:00-0400 Body mass index (BMI) [Ratio] 26.26 kg/m2 Ed Lawton Other [employer] Other 07-26-2022 16:00-0400 Body temperature 97.4 [degF] Ed Lawton Other [employer] Other 07-26-2022 16:00-0400 Body weight 70.49 kg Ed Lawton Other [employer] Other 07-26-2022 16:00-0400 Diastolic blood pressure 74 mm[Hg] Ed Jered Other [employer] Other 07-26-2022 16:00-0400 Respiratory rate 18 /min Ed Lawton Other [employer] Other 07-26-2022 16:00-0400 SaO2% (BldA) [Mass fraction] 95 % Ed Jered Other [employer] Other 07-26-2022 16:00-0400 Systolic blood pressure 104 mm[Hg] Ed Jered Other [employer] Other 03-15-2022 16:00-0500 Body height 163.83 cm Drew White Other [employer] Other 03-15-2022 16:00-0500 Body mass index (BMI) [Ratio] 30.37 kg/m2 Drew White Other [employer] Other 03-15-2022 16:00-0500 Body temperature 98.1 [degF] Drew White Other [employer] Other 03-15-2022 16:00-0500 Body weight 81.51 kg Drew White Other [employer] Other 03-15-2022 16:00-0500 Diastolic blood pressure 84 mm[Hg] Drew White Other [employer] Other 03-15-2022 16:00-0500 Respiratory rate 18 /min Drew White Other [employer] Other 03-15-2022 16:00-0500 SaO2% (BldA) [Mass fraction] 98 % Drew White Other [employer] Other 03-15-2022 16:00-0500 Systolic blood pressure 122 mm[Hg] Drew White Other [employer] Other 01-25-2022 16:00-0500 Body height 163.83 cm Ed Lawton Other [employer] Other 01-25-2022 16:00-0500 Body mass index (BMI) [Ratio] 31.21 kg/m2 Ed Lawton Other [employer] Other 01-25-2022 16:00-0500 Body weight 83.78 kg Ed Lawton Other [employer] Other 01-25-2022 16:00-0500 Diastolic blood pressure 84 mm[Hg] Ed Lawton Other [employer] Other 01-25-2022 16:00-0500 Respiratory rate 18 /min Ed Lawton Other [employer] Other 01-25-2022 16:00-0500 SaO2% (BldA) [Mass fraction] 97 % Ed Lawton Other [employer] Other 01-25-2022 16:00-0500 Systolic blood pressure 104 mm[Hg] Ed Lawton Other [employer] Other 07-25-2021 16:15-0400 Body height 163.83 cm Ed Lawton Other [employer] Other 07-25-2021 16:15-0400 Body mass index (BMI) [Ratio] 30.47 kg/m2 Ed Lawton Other [employer] Other 07-25-2021 16:15-0400 Body weight 81.78 kg Ed Lawton Other [employer] Other 07-25-2021 16:15-0400 Diastolic blood pressure 60 mm[Hg] Ed Lawton Other [employer] Other 07-25-2021 16:15-0400 Respiratory rate 18 /min Ed Lawton Other [employer] Other 07-25-2021 16:15-0400 SaO2% (BldA) [Mass fraction] 95 % Ed Lawton Other [employer] Other 07-25-2021 16:15-0400 Systolic blood pressure 120 mm[Hg] Ed Lawton Other [employer] [employer] Other 07-14-2021 11:29-0400 Diastolic blood pressure 60 mm[Hg] Ed Lawton Work Phone: [facility] [employer] 250 DO Work Phone: 07-14-2021 11:29-0400 Systolic blood pressure 88 mm[Hg] Ed Lawton Work Phone: [facility] [employer] 250 DO Work Phone: 07-14-2021 11:27-0400 Body height 162.56 cm Ed Lawton Work Phone: [facility] 250 DO Work Phone: 07-14-2021 11:27-0400 Body mass index (BMI) [Ratio] 30.9 kg/m2 Ed Lawton Work Phone: [facility] 250 DO Work Phone: 07-14-2021 11:27-0400 Body surface area Derived from formula 1.87 m2 Ed Lawton Work Phone: [facility] 250 DO Work Phone: 07-14-2021 11:27-0400 Body weight 81.65 kg Ed Lawton Work Phone: [facility] 250 DO Work Phone: 07-14-2021 11:27-0400 Heart rate 73 /min Ed Lawton Work Phone: [facility] 250 DO Work Phone: 06-27-2021 10:31-0400 Body height 162.56 cm Ed Lawton Work Phone: [facility] 250 DO Work Phone: 06-27-2021 10:31-0400 Body mass index (BMI) [Ratio] 30.9 kg/m2 Ed Lawton Work Phone: [facility] 250 DO Work Phone: 06-27-2021 10:31-0400 Body surface area Derived from formula 1.87 m2 Ed Lawton Work Phone: [facility] 250 DO Work Phone: 06-27-2021 10:31-0400 Body weight 81.65 kg Ed Lawton Work Phone: [facility] 250 DO Work Phone: 06-27-2021 10:31-0400 Diastolic blood pressure 72 mm[Hg] Ed Lawton Work Phone: [facility] 250 DO Work Phone: 06-27-2021 10:31-0400 Heart rate 67 /min Ed Lawton Work Phone: [facility] 250 DO Work Phone: 06-27-2021 10:31-0400 Systolic blood pressure 98 mm[Hg] Ed Lawton Work Phone: [facility] 250 DO Work Phone: 06-16-2021 00:00-0400 40 1 Ed Lawton Work Phone: [facility] 250 DO Work Phone: Comment on above: [id number] 06-07-2021 14:54-0400 Diastolic blood pressure 78 mm[Hg] Ed Lawton Work Phone: [facility] 250 DO Work Phone: 06-07-2021 14:54-0400 Systolic blood pressure 120 mm[Hg] Ed Lawton Work Phone: [facility] 250 DO Work Phone: 06-07-2021 14:51-0400 Body height 162.56 cm Ed Lawton Work Phone: [facility] 250 DO Work Phone: 06-07-2021 14:51-0400 Body mass index (BMI) [Ratio] 31.58 kg/m2 Ed Nikhil Jered Work Phone: [facility] 250 DO Work Phone: 06-07-2021 14:51-0400 Body surface area Derived from formula 1.89 m2 Ed Nikhil Lawton Work Phone: [facility] 250 DO Work Phone: 06-07-2021 14:51-0400 Body weight 83.46 kg Ed Nikhil Lawton Work Phone: [facility] 250 DO Work Phone: 06-07-2021 14:51-0400 Diastolic blood pressure 80 mm[Hg] Ed Nikhil CurtisJered Work Phone: [facility] 250 DO Work Phone: 06-07-2021 14:51-0400 Heart rate 56 /min Ed Lawton Work Phone: [facility] 250 DO Work Phone: 06-07-2021 14:51-0400 Systolic blood pressure 126 mm[Hg] Ed Nikhil Lawton Work Phone: [facility] 250 DO Work Phone: 05-04-2021 10:52-0500 75.8 1 Ed Nikhil Lawton Work Phone: [facility] 250 DO Work Phone: Comment on above: [facility] 04-28-2021 11:43-0500 Diastolic blood pressure 80 mm[Hg] Ed Lawton Work Phone: [facility] 250 DO Work Phone: 04-28-2021 11:43-0500 Systolic blood pressure 142 mm[Hg] Ed Lawton Work Phone: [facility] 250 DO Work Phone: 04-28-2021 11:29-0500 Diastolic blood pressure 71 mm[Hg] Ed Lawton Work Phone: [facility] 250 DO Work Phone: 04-28-2021 11:29-0500 Systolic blood pressure 178 mm[Hg] Ed Lawton Work Phone: [facility] 250 DO Work Phone: 04-28-2021 11:27-0500 Body height 157.48 cm Ed Lawton Work Phone: [facility] 250 DO Work Phone: 04-28-2021 11:27-0500 Body mass index (BMI) [Ratio] 34.75 kg/m2 Ed Lawton Work Phone: [facility] 250 DO Work Phone: 04-28-2021 11:27-0500 Body surface area Derived from formula 1.87 m2 Ed Lawton Work Phone: [facility] 250 DO Work Phone: 04-28-2021 11:27-0500 Body weight 86.18 kg Ed Lawton Work Phone: [facility] 250 DO Work Phone: 04-28-2021 11:27-0500 Diastolic blood pressure 99 mm[Hg] Ed Lawton Work Phone: [facility] 250 DO Work Phone: 04-28-2021 11:27-0500 Heart rate 163 /min Ed Lawton Work Phone: [facility] 250 DO Work Phone: 04-28-2021 11:27-0500 Systolic blood pressure 178 mm[Hg] Ed Lawton Work Phone: [facility] 250 DO Work Phone: 01-26-2021 14:00-0500 Body height 163.83 cm Ed Jered Other [employer] Other 01-26-2021 14:00-0500 Body mass index (BMI) [Ratio] 34.62 kg/m2 Ed Jered Other [employer] Other 01-26-2021 14:00-0500 Body temperature 98.8 [degF] Ed Lawton Other [employer] Other 01-26-2021 14:00-0500 Body weight 92.94 kg Ed Lawton Other [employer] Other 01-26-2021 14:00-0500 Diastolic blood pressure 88 mm[Hg] Ed Lawton Other [employer] Other 01-26-2021 14:00-0500 Respiratory rate 18 /min Ed Jered Other [employer] Other 01-26-2021 14:00-0500 SaO2% (BldA) [Mass fraction] 94 % Edpretty Lawton Other [employer] Other 01-26-2021 14:00-0500 Systolic blood pressure 132 mm[Hg] Ed Lawton Other [employer] Other Encounters Encounter Date Encounter Type Care Provider Facility Start: 12-11-2024 ambulatory Mikey Duque acility:[facility] Start: 12-04-2024 End: 12-04-2024 Telephone encounter [facility] Start: 11-20-2024 End: 11-20-2024 ambulatory Ed Lawton DO Work Phone: [facility] Work Phone: Start: 11-20-2024 End: 11-20-2024 Patient encounter procedure Ed Lawton DO -[facility] Work Phone: Start: 11-10-2024 End: 11-10-2024 Office outpatient visit 25 minutes Servando Umana MD Work Phone: [facility] Comment on above: 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 Work Phone: Start: 09-10-2024 End: 09-10-2024 Patient encounter procedure Ed Lawton DO -[facility] Work Phone: Start: 09-10-2024 End: 09-10-2024 ambulatory Ed Lawton DO Work Phone: [facility] Work Phone: Start: 09-09-2024 Registered Recurring Ruchi MANCILLA [employer] Start: 09-02-2024 End: 09-02-2024 [facility] Start: 09-02-2024 End: 09-02-2024 Office outpatient visit 25 minutes Servando Umana MD Work Phone: [facility] Comment on above: 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); Fibromyalgia; Abnormal weight loss; History of non-Hodgkin's lymphoma; Encounter for long-term (current) use of high-risk medication Start: 08-12-2024 End: 08-15-2024 Refill 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 Work Phone: [facility] Card[facility] Comment on above: Med Refill Start: 07-31-2024 End: 07-31-2024 ambulatory PHYSICIAN NO [facility] Work Phone: Start: 07-31-2024 End: 07-31-2024 Encounter for general adult medical examination without abnormal findings PHYSICIAN NO [facility] Start: 07-31-2024 End: 07-31-2024 Patient encounter procedure PHYSICIAN NO [facility] [place] Work Phone: Start: 07-31-2024 End: 07-31-2024 Patient encounter status Ed Lawton DO [facility] Start: 07-30-2024 Non-patient / Non-visit PHYSICIAN NO [facility] Work Phone: Start: 07-17-2024 End: 07-17-2024 ambulatory BERNARDA Concha [facility] Start: 07-15-2024 Registered Recurring PHYSICIAN NO [facility] Start: 07-09-2024 End: 07-09-2024 ambulatory Servando Umana MD Work Phone: [facility] Comment on above: Rheumatoid arthritis , involving unspecified site, unspecified whether rheumatoid factor present (HCC) (Primary Dx) Start: 06-25-2024 End: 06-26-2024 ambulatory Servando Umana MD Work Phone: [facility] Comment on above: Rheumatoid arthritis , involving unspecified site, unspecified whether rheumatoid factor present (HCC) (Primary Dx) Start: 06-17-2024 End: 06-17-2024 Evaluation and management of inpatient Stu Vargas [facility],PharmD [facility] Start: 06-09-2024 End: 06-09-2024 Orders Only Servando Umana MD Work Phone: [facility] Start: 06-06-2024 End: 06-06-2024 Office outpatient visit 25 minutes Bernarda Joya MD Work Phone: [facility] Comment on above: Paroxysmal atrial fi brillation ([facility]-HCC) (Primary Dx); Coronary artery disease involving [place] coronary artery of [place] heart, unspecified whether angina present; Ischemic cardiomyopathy; Longstanding persistent atrial fibrillation (CMS-HCC) Start: 06-06-2024 End: 06-06-2024 ambulatory BERNARDA JOYA [facility] Start: 06-05-2024 End: 06-05-2024 Telephone encounter Noris Zapata [facility] Card[facility] Start: 06-03-2024 End: 08-03-2024 Orders Only Servando Umana MD Work Phone: [facility] Comment on above: Sedimentation Rate, CBC Auto Differential, Creatinine, serum, Additional followed-up results: 3 Start: 06-02-2024 End: 06-02-2024 Office outpatient visit 25 minutes Servando Umana MD Work Phone: [facility] Comment on above: 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); Fibromyalgia; Abnormal weight loss; History of non-Hodgkin's lymphoma; Encounter for long-term (current) use of high-risk medication; Encounter for screening for other viral diseases; Myalgia Start: 06-02-2024 End: 06-02-2024 ambulatory [facility] Meghan kowalski [facility] Start: 05-25-2024 End: 05-29-2024 Refill Thi Emerson INSTRUMENT LENS GRINDER-SUPERINTENDENT CEMETERY Work Phone: [facility] Cardiology Comment on above: Med Refill Start: 05-12-2024 End: 05-16-2024 Refill Vy Rosario PA-C Work Phone: [facility] Comment on above: Med Refill Start: 05-06-2024 End: 05-08-2024 Refill Ramy Wadsworth PA-C Work Phone: [facility] Comment on above: Med Refill Start: 04-11-2024 End: 04-14-2024 Refill Renetta Fritz RN [facility] Comment on above: Med Refill Start: 02-27-2024 End: 02-27-2024 ambulatory THI EMERSON [facility] Start: 02-08-2024 End: 02-12-2024 Refill Thimarques Emerson INSTRUMENT LENS GRINDER-SUPERINTENDENT CEMETERY Work Phone: [facility] Comment on above: Med Refill Start: 01-28-2024 End: 01-28-2024 ambulatory SERVANDO UMANA [facility] Start: 01-28-2024 End: 01-28-2024 Office outpatient visit 25 minutes Servando Umana MD Work Phone: [facility] Comment on above: 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); Fibromyalgia; Abnormal weight loss; History of non-Hodgkin's lymphoma; Encounter for long-term (current) use of high-risk medication; Encounter for screening for other viral diseases Start: 01-28-2024 End: 01-31-2024 Orders Only Servando Umana MD Work Phone: [facility] Start: 01-15-2024 End: 01-15-2024 ambulatory PHYSICIAN KATHY [facility] Work Phone: Start: 01-15-2024 End: 01-15-2024 Patient encounter procedure PHYSICIAN KATHY [facility] Work Phone: Start: 01-01-2024 End: 01-01-2024 Patient encounter procedure Roger Raza PhD Work Phone: [facility] Comment on above: Mild neurocognitive disorder (Primary Dx); Word finding difficulty; History of TIA (transient ischemic attack); Other chronic pain Start: 01-01-2024 End: 01-01-2024 ambulatory ROGER RAZA Not Available Start: 12-12-2023 End: 12-12-2023 ambulatory DO Ed Lawton Work Phone: [facility] Work Phone: Start: 12-12-2023 End: 12-12-2023 Patient encounter procedure DO Ed Lawton Work Phone: [facility] Work Phone: Start: 12-10-2023 End: 12-10-2023 Patient encounter procedure Roger Raza PhD Work Phone: [facility] Comment on above: Memory loss (Primary Dx); Confusion; Tremor; Shuffling gait; Word finding difficulty; History of TIA (transient ischemic attack); Other chronic pain Start: 12-10-2023 End: 12-10-2023 ambulatory ROGER RAZA Not Available Start: 12-10-2023 End: 12-10-2023 Bamboo flowsheet Roger Raza PhD Work Phone: [facility] Start: 12-10-2023 End: 12-10-2023 Bamboo flowsheet Roger Raza PhD Work Phone: [facility] Start: 12-04-2023 End: 12-04-2023 ambulatory [facility] Start: 11-27-2023 Registered Recurring DO Golden Lawton Work Phone: [facility] Start: 11-22-2023 Non-patient / Non-visit DO Ed Lawton Work Phone: [facility] Work Phone: Start: 11-14-2023 End: 11-14-2023 ambulatory DO Ed Lawton Work Phone: [facility] Work Phone: Start: 11-14-2023 End: 11-14-2023 Patient encounter procedure DO Ed Lawton Work Phone: [facility] [place] Work Phone: Start: 11-10-2023 End: 11-13-2023 Refill Ivone Elizondo INSTRUMENT LENS GRINDER-SUPERINTENDENT CEMETERY Work Phone: [facility] Comment on above: Med Refill Start: 10-30-2023 Registered Recurring DO Golden Lawton Work Phone: [facility]- [facility] Start: 10-17-2023 End: 10-17-2023 ambulatory DO Ed Lawton Work Phone: [facility] Work Phone: Start: 10-17-2023 End: 10-17-2023 Patient encounter procedure DO Ed Lawton Work Phone: [facility] Work Phone: Start: 10-13-2023 End: 10-19-2023 Refill Ivone Elizondo INSTRUMENT LENS GRINDER-SUPERINTENDENT CEMETERY Work Phone: [facility] Comment on above: Med Refill Start: 09-25-2023 Non-patient / Non-visit DO Ed Lawton Work Phone: [facility] Work Phone: Start: 09-18-2023 Non-patient / Non-visit DO Ed Lawton Work Phone: [facility] Work Phone: Start: 09-17-2023 Non-patient / Non-visit DO Ed Lawton Work Phone: [facility] Work Phone: Start: 09-17-2023 End: 09-17-2023 Admission to same day surgery center DO Ed Lawton Work Phone: [facility] Work Phone: Start: 09-14-2023 End: 09-14-2023 ambulatory ED LAWTON Facility:[facility] Start: 09-14-2023 End: 09-14-2023 Office outpatient visit 25 minutes Neville Yee MD Work Phone: Hematology/Oncology Comment on above: 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) (Primary Dx); Abnormal weight loss Start: 09-10-2023 End: 09-10-2023 ambulatory ED LAWTON Facility:[facility] Start: 09-10-2023 End: 09-10-2023 Subsequent hospital visit by physician Arrival Time Radiology Work Phone: Radiology Pet CT Comment on above: Diffuse large B-cell lymphoma of solid organ excluding spleen (HCC) [C83.39] Start: 09-06-2023 Registered Recurring DO Golden Lawton Work Phone: [facility] Start: 09-05-2023 Telephone encounter Maicol Tejeda Hematology/Oncology Start: 09-05-2023 End: 09-05-2023 ambulatory DO Ed Lawton Work Phone: [facility] Work Phone: Start: 09-05-2023 End: 09-05-2023 Patient encounter procedure DO Ed Lawton [facility] Work Phone: Start: 08-28-2023 Registered Recurring DO Golden Lawton Work Phone: [facility] Start: 08-27-2023 End: 08-29-2023 Refill Ivone Elizondo APRN-SUPERINTENDENT CEMETERY Work Phone: [facility] Comment on above: Med Refill Start: 08-23-2023 End: 08-23-2023 Office outpatient new 60 minutes Neville Yee MD Work Phone: Hematology/Oncology Comment on above: 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) (Primary Dx); Abnormal weight loss; Diffuse large B-cell lymphoma of solid organ excluding spleen (HCC); Bipolar II disorder (HCC) Start: 08-23-2023 Non-patient / Non-visit DO Ed Lawton Work Phone: [facility] Physician [facility] Work Phone: Start: 08-23-2023 End: 08-23-2023 ambulatory ED OSORIO JERED Facility:[facility] Start: 08-15-2023 End: 08-15-2023 ambulatory PHYSICIAN NO [facility] Work Phone: Start: 08-15-2023 End: 08-15-2023 Patient encounter procedure PHYSICIAN NO [facility] Work Phone: Start: 08-09-2023 Registered Recurring PHYSICIAN NO [facility]- [facility] Start: 08-08-2023 End: 08-08-2023 ambulatory PHYSICIAN NO [facility] Work Phone: Start: 08-08-2023 End: 08-08-2023 Patient encounter procedure PHYSICIAN NO [facility] [place] Work Phone: Start: 07-27-2023 Chart abstracting Neville ridley MD Work Phone: Hematology/Oncology Start: 06-13-2023 Registered Recurring PHYSICIAN NO [facility]- [facility] Start: 05-21-2023 End: 05-21-2023 Office outpatient visit 25 minutes Geno River MD Work Phone: [facility] Comment on above: Paroxysmal atrial fi brillation (CMS-HCC) (Primary Dx); Coronary artery disease involving [place] coronary artery of [place] heart, unspecified whether angina present; Primary hypertension; Ischemic cardiomyopathy; Hyperlipidemia, unspecified hyperlipidemia type Start: 05-18-2023 Telephone encounter Noris Zapata CMA [facility] Start: 05-16-2023 Non-patient / Non-visit PHYSICIAN NO [facility] Work Phone: Start: 05-10-2023 End: 05-10-2023 ambulatory PHYSICIAN NO [facility] Work Phone: Start: 05-10-2023 End: 05-10-2023 Patient encounter procedure PHYSICIAN NO [facility] [place] Work Phone: Start: 04-27-2023 Refill Renetta Fritz RN [facility] Comment on above: Med Refill Start: 02-13-2023 Registered Recurring PHYSICIAN NO [facility] Start: 02-02-2023 End: 02-02-2023 ambulatory Ed Lawton Other [employer] Other Start: 02-02-2023 Telephone encounter Ed Duque [facility] [place] Start: 01-17-2023 End: 01-17-2023 ambulatory Ed Lawton Other [employer] Other Start: 01-17-2023 Office outpatient visit 25 minutes Ed Lawton [facility] [place] Start: 10-06-2022 End: 10-06-2022 ambulatory PHYSICIAN NO [facility] Work Phone: Start: 10-06-2022 End: 10-06-2022 Patient encounter procedure PHYSICIAN NO [facility] Work Phone: Start: 08-16-2022 End: 08-16-2022 ambulatory Ed Lawton Other [employer] Other Start: 08-16-2022 Office outpatient visit 15 minutes Ed Lawton [facility] [place] Start: 08-09-2022 End: 08-10-2022 ambulatory ED [place]ON Facility: Start: 07-26-2022 End: 07-26-2022 ambulatory Ed Lawton Other [employer] Other Start: 07-26-2022 Encounter for genera l adult medical examination without abnormal findings Ed Lawton [facility] [place] Start: 07-26-2022 Patient encounter procedure Ed Lawton [facility] [place] Start: 07-25-2022 Registered Recurring PHYSICIAN KATHY [facility] Start: 06-26-2022 End: 06-27-[address] ED SNYDER Facility:[facility] Start: 06-06-2022 End: 06-06-2022 ambulatory Ed Lawton Other [employer] Other Start: 06-06-2022 Telephone encounter Ed Lawton [facility] [place] Start: 05-29-2022 Rx Renewal Ed Estevez er Work Phone: [facility] 250 DO Work Phone: Start: 05-02-2022 End: 05-02-2022 ambulatory PHYSICIAN NO [facility] Work Phone: Start: 05-02-2022 End: 05-02-2022 Patient encounter procedure PHYSICIAN NO [facility] [address] Work Phone: Start: 03-15-2022 End: 03-15-2022 Departed Referred PHYSICIAN NO [facility] [address] [place] Work Phone: Start: 03-15-2022 End: 03-15-2022 ambulatory Drew White Other [employer] Other Start: 03-15-2022 Office outpatient visit 15 minutes Drew White [facility] [place] Start: 02-12-2022 End: 02-12-2022 ambulatory Ed Lawton Other [employer] Other Start: 02-12-2022 Telephone encounter Ed Duque [facility] [place] Start: 01-31-2022 End: 02-01-2022 ambulatory ED [place] Facility:[facility] Start: 01-25-2022 End: 01-25-2022 ambulatory Ed Lawton Other [employer] Other Start: 01-25-2022 Office outpatient visit 25 minutes Ed Lawton [facility] [place] Start: 09-29-2021 End: 09-30-[address] DOCTOR WORKMAN Facility:[facility] Start: 09-16-2021 End: 10-14-2021 ambulatory SHAIKH Tova ANDREWClifford Facility:[facility] Start: 08-23-2021 End: 08-23-2021 ambulatory Ed Lawton Other [employer] Other Start: 08-23-2021 Telephone encounter Ed Duque [facility] [place] Start: 08-18-2021 Rx Renewal Ed N Kirstenfredy er Work Phone: [facility] 250 DO Work Phone: Start: 07-28-2021 End: 07-28-2021 ambulatory Ed Lawton Other [employer] Other Start: 07-28-2021 Telephone encounter Ed Duque [facility] [place] Start: 07-25-2021 End: 07-25-2021 ambulatory Ed Lawton Other [employer] Other Start: 07-25-2021 Office outpatient visit 15 minutes Ed Lawton [facility] [place] Start: 07-25-2021 Patient encounter procedure Ed Lawton [facility] [place] Start: 07-21-2021 EKG, Provider: ELIJAH LANGLEY [employer] 1,[id number], Status: Pen, Time: 2:00 PM Ed Nikhil Jered Work Phone: [facility] 250 DO Work Phone: Start: 07-15-2021 Rx Renewal Ed Estevez er Work Phone: [facility] [place] [facility] 250 DO Work Phone: Start: 07-14-2021 Office outpatient visit 40 minutes Ed Lawton Work Phone: [facility] 250 DO Work Phone: Start: 07-08-2021 Rx Renewal Ed Estevez er Work Phone: [facility] 250 DO Work Phone: Start: 06-27-2021 Patient encounter procedure Ed Lawton Work Phone: [facility] DO Work Phone: Start: 06-07-2021 Office outpatient visit 10 minutes Ed Nikhil CurtisJered Work Phone: [facility] DO Work Phone: Start: 06-06-2021 End: 06-06-2021 ambulatory Ed Lawton Other [facility] [employer] Other Start: 06-06-2021 Telephone encounter Ed Duque [facility] Start: 06-01-2021 Rx Renewal Ed Estevez er Work Phone: [facility] 250 DO Work Phone: Start: 04-28-2021 Office outpatient visit 25 minutes Ed Curtismer Work Phone: [facility] DO Work Phone: Start: 04-12-2021 Rx Renewal Ed Estevez er Work Phone: [facility] 600 DO Work Phone: Start: 03-17-2021 Rx Renewal Ed Estevez er Work Phone: [facility] DO Work Phone: Start: 03-03-2021 Rx Renewal Ed Estevez er Work Phone: -[facility] [place] Work Phone: Start: 01-26-2021 End: 01-26-2021 ambulatory Ed Lawton Other [facility] [employer] Other Start: 01-26-2021 Office outpatient visit 25 minutes Ed Lawton [facility] [place] Procedures Date Procedure Procedure Detail Performing Clinician Start: 09-10-2024 Screening mammography of bilateral breasts Ed Lawton DO Work Phone: Start: 09-02-2024 Complete blood count with white cell differential, manual Servando Umana MD Work Phone: Start: 09-02-2024 Creatinine blood Servando Umana MD Work Phone: Start: 06-06-2024 Ecg routine ecg w/least 12 lds w/i&r Bernarda Joya MD Work Phone: Start: 06-06-2024 Follow-up visit Follow-up BERNARDA JOYA Start: 01-28-2024 Tb antigen response gamma interferon t-cell susp Servando Umana MD Work Phone: Start: 01-28-2024 Creatinine blood Servando Umana MD Work Phone: Start: 09-17-2023 Esophagogastroduodenoscopy DO Ed Grande dmer Work Phone: Start: 09-10-[address] attenuation skull base mid-thigh Neville Yee MD Work Phone: Start: 09-10-2023 Gluc bld gluc mntr dev cleared fda spec home use [facility] Provider Start: 09-05-2023 Dual energy X-ray absorptiometry DO [...] anterior descending (LAD) artery PHYSICIAN NO FAMILY History of placement of stent in anterior descending branch of left coronary artery 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 ( Ed Lawton DO Plan of Treatment Date Care Activity Detail Author Start: 01-03-2034 DTaP,Tdap and Td Vaccines (2 - Td or Tdap) DTaP,Tdap and Td Vaccines (2 - Td or Tdap) [facility] Start: 01-03-2034 Tetanus vaccination Tetanus: Every 10yrs [facility] Start: 08-22-2028 Lipid panel Lipid Screening [facility] Start: 08-22-2026 Diabetes Screening Diabetes Screening [facility] Start: 07-17-2025 Adult BMI Screening Adult BMI Screening [facility] Start: 06-06-2025 Adult BMI Screening Adult BMI Screening [facility] Start: 06-06-2025 Tobacco Screening Tobacco Screening [facility] Start: 03-24-2025 End: 03-24-2025 Patient encounter procedure 03/24/2025 2:15 PM EST Office Visit [facility] [address] [place] [address] Servando Umana MD [address] [place] [address] [facility] Start: 12-24-2024 End: 12-24-2024 ambulatory 12/24/2024 10:00 AM EDT Infusion/Injection [facility] [address] [place] [address] Discharge Disposition: Home [facility] Start: 12-05-2024 End: 12-05-2024 Patient encounter procedure 12/05/2024 11:00 AM EDT Office Visit [facility] [address] [place] [address] Bernarda Joya MD [address] [id number] [facility] Start: 11-20-2024 End: 11-20-2024 Patient encounter procedure 11/20/2024 2:15 PM EDT Office Visit [facility] [address] [place] [address] Servando Umana MD [address] [place] [address] [facility] Start: 11-17-2024 COVID-19 Vaccine ( season) COVID-19 Vaccine () [facility] Start: 11-17-2024 Influenza vaccination [facility] Start: 09-02-2024 End: 09-02-2024 Patient encounter procedure 09/02/2024 2:45 PM EDT Office Visit [facility] [place] [address] Servando Umana MD [address] [place] [address] [facility] Start: 07-09-2024 End: 07-09-2024 ambulatory 07/09/2024 10:30 AM EDT Infusion/Injection [facility] [address] [place] [address] Discharge Disposition: Home [facility] Start: 07-07-2024 End: 06-06-2025 Echo complete W/O contrast Echo complete W/O contrast Echocardiography Routine Paroxysmal atrial fibrillation (CMS-HCC) Coronary artery disease involving [place] coronary artery of [place] heart, unspecified whether angina present Ischemic cardiomyopathy Longstanding persistent atrial fibrillation (CMS-HCC) Expected: 07/07/2024 (Approximate), Expires: 06/06/2025 [facility] Work Phone: Comment on above: Expected: 07/07/2024 (Approximate), Expi res: 06/06/2025 Start: 06-25-2024 End: 06-25-2024 ambulatory 06/25/2024 11:00 AM EDT Infusion/Injection [facility] [address] [place] [address] [facility] Start: 06-06-2024 End: 06-06-2024 Patient encounter procedure 06/06/2024 11:45 AM EDT Office Visit [facility] [address] [facility] [address] [place] [address] Bernarda Joya MD [facility] [place] [address] [facility] Start: 06-02-2024 End: 06-02-2024 Patient encounter procedure 06/02/2024 3:15 PM EDT Office Visit [facility] [place] [address] Servando Umana MD [address] [place] [address] [facility] Start: 05-20-2024 Adult BMI Screening Adult BMI Screening [facility] Start: 05-20-2024 Tobacco Screening Tobacco Screening [facility] Start: 02-07-2024 Fall risk assessment Falls Risk Assessment [facility] Start: 02-07-2024 Fall Risk Screening Fall Risk Screening [facility] Start: 12-31-2023 End: 12-31-2023 Patient encounter procedure 12/31/2023 12:30 PM EDT Office Visit [facility] [address] [facility] [address] [place] [address] [facility] Start: 12-10-2023 End: 12-10-2023 Patient encounter procedure 12/10/2023 4:30 PM EDT Office Visit [facility] [address] [facility] [address] [place] [phone] Roger Raza, PhD [address] [place] [address] Arrived [facility] Comment on above: Arrived Start: 11-18-2023 Covid-19 Vaccine ( season) Covid-19 Vaccine () [facility] Start: 11-18-2023 COVID-19 Vaccine ( season) COVID-19 Vaccine () [facility] Start: 11-18-2023 Influenza vaccination [facility] Start: 09-17-2023 [facility] Start: 09-15-2023 Adult BMI Screening Adult BMI Screening [facility] Start: 09-15-2023 Tobacco Screening Tobacco Screening [facility] Start: 09-14-2023 End: 09-14-2023 Follow-up encounter 09/14/2023 3:45 PM EDT Visit (SP) Office Hematology/Oncology [address] [place] [address] [place] [address] Neville Yee MD [address] [place] [address] [place] [address] follow up after PET scan to review results Hematology/Oncology Comment on above: follow up after PET scan to review resul ts Start: 09-10-2023 End: 09-10-2023 Patient encounter procedure 09/10/2023 1:30 PM EDT Appointment Radiology Pet CT [address] [place] [address] Comment on above: PET Start: 08-08-2023 Patient referral [facility] Work Phone: Start: 08-01-2023 End: 08-01-2023 [facility] visit new patient 08/01/2023 3:30 PM EDT Visit (SP) Office Hematology/Oncology [address] [place] [address] Neville Yee MD [address] [facility] [place] [address] New Patient Hematology/Oncology Comment on above: New Patient Start: 05-21-2023 End: 05-21-2023 Patient encounter procedure 05/21/2023 1:15 PM EST Office Visit [facility] [address] [place] [address] Geno River MD [address] [place] [address] [facility] Start: 03-19-2023 Behavioral Health Screening Behavioral Health Screening [facility] Start: 11-17-2022 Covid-19 Vaccine ( season) Covid-19 Vaccine () [facility] Start: 11-17-2022 Influenza vaccination Influenza Vaccine [facility] Start: 10-29-2022 Diabetes Screening Diabetes Screening [facility] Start: 10-06-2022 Screening mammography of bilateral breasts MM screening mammo BI w/CAD [facility] Start: 11-08-2021 FUV, Provider: Marty Lynn, Status: Pen, Time: 11:10 AM FUV, Provider: Marty Lynn, Status: Pen, Time: 11:10 AM -[facility] 250 DO Work Phone: Start: 10-11-2021 ECHO, Provider: SONIA HHVI ULTRASOUND 01,[id number], Status: Pen, Time: 1:30 PM ECHO, Provider: SONIA HHVI ULTRASOUND 01,[id number], Status: Pen, Time: 1:30 PM [facility] 250 DO Work Phone: Start: 07-21-2021 EKG, Provider: ELIJAH LANGLEY [employer] 1,[id number], Status: Pen, Time: 2:00 PM EKG, Provider: ELIJAH LANGLEY [employer] EXP[employer] 1,[id number], Status: Pen, Time: 2:00 PM [facility] 250 DO Work Phone: Start: 07-14-2021 FUV, Provider: Marty Lynn, Status: Pen, Time: 11:10 AM FUV, Provider: Marty Lynn, Status: Pen, Time: 11:10 AM [facility] 250 DO Work Phone: Start: 06-07-2021 NURSEVST, Provider: ELIJAH LANGLEY [employer] SAL[employer] EXPERT 1,[id number], Status: Pen, Time: 2:30 PM NURSEVST, Provider: ELIJAH LANGLEY [employer] SAL[employer] EXPERT 1,[id number], Status: Pen, Time: 2:30 PM -[facility] 250 DO Work Phone: Start: 03-22-2021 FUV, Provider: Marty Lynn, Status: Pen, Time: 1:45 PM FUV, Provider: Marty Lynn, Status: Pen, Time: 1:45 PM -[facility] [place] Work Phone: Start: 02-27-2019 Pneumococcal vaccination Pneumococcal Vaccine (2 of 2 - PPSV23 or PCV20) [facility] Start: 02-27-2019 Pneumococcal Vaccine: Age 50+ (2 of 2 - PPSV23) Pneumococcal Vaccine: Age 50+ (2 of 2 - PPSV23) [facility] Start: 02-27-2019 Pneumococcal Vaccine: Age 50+ (2 of 2 - PPSV23, PCV20, or PCV21) Pneumococcal Vaccine: Age 50+ (2 of 2 - PPSV23, PCV20, or PCV21) [facility] Start: 02-27-2019 Pneumococcal Vaccine: Ped or At-Risk (2 of 2 - PPSV23 or PCV20) Pneumococcal Vaccine: Ped or At-Risk (2 of 2 - PPSV23 or PCV20) [facility] Start: 2019 RSV Vaccine (1 - 1-dose 60+ series) RSV Vaccine (1 - 1-dose 60+ series) [facility] Start: 2009 Administration of varicella zoster vaccine Zoster (Shingles) Vaccine (1 of 2) [facility] Start: 2009 Screening for malignant neoplasm of colon Flexible sigmoidoscopy [facility] Start: 2009 Shingrix Vaccine (1 of 2) Shingrix Vaccine (1 of 2) [facility] Start: 02-07-2004 Lipid panel Lipid Screening [facility] Start: 02-07-2004 Screening for malignant neoplasm of colon [facility] Start: 1999 Screening for malignant neoplasm of breast [facility] Start: 1989 Screening for malignant neoplasm of cervix [facility] Start: 02-07-1980 Screening for malignant neoplasm of cervix [facility] Start: 1978 Administration of herpes zoster vaccine Zoster Vaccines (1 of 2) [facility] Start: 1978 DTaP,Tdap and Td Vaccines (1 - Tdap) DTaP,Tdap and Td Vaccines (1 - Tdap) [facility] Start: 1978 Urine microalbumin profile DTaP,Tdap,Td Vaccine (1 - Tdap) [facility] Start: 1977 Adult BMI Follow Up Plan Adult BMI Follow Up Plan [facility] Start: 1977 Anxiety Screening Anxiety Screening [facility] Start: 1977 Depression Screening Depression Screening [facility] Start: 1977 Hepatitis C screening Hepatitis C Screening [facility] Start: 1977 HIV screening HIV Screening [facility] Start: 1974 HIV screening HIV Screening [facility] Start: 1971 Depression screening using PHQ-9 (Patient Health Questionnaire 9) score [facility] Start: 1962 Medicare Wellness Visit Medicare Wellness Visit [facility] Start: 1959 Screening for malignant neoplasm of colon [facility] Start: 1959 Screening for malignant neoplasm of lung Low-dose CT Lung Cancer Screen [facility] Start: 1959 Screening for osteoporosis Dexa Scan [facility] Start: 1959 Statin Use: Cardiovascular Statin Use: Cardiovascular [facility] Start: 1959 Tobacco Counseling Tobacco Counseling [facility] End: 06-02-2025 Alanine aminotransferase [Enzymatic activity/volume] in Serum or Plasma ALT Lab Routine Encounter for long-term (current) use of high-risk medication 1 Occurrences starting 06/02/2024 until 06/02/2025 [facility] Comment on above: 1 Occurrences starting 06/02/2024 until 06/02/2025 End: 06-25-2025 Alanine aminotransferase [Enzymatic activity/volume] in Serum or Plasma ALT Lab Routine Rheumatoid arthritis, involving unspecified site, unspecified whether rheumatoid factor present (HCC) 5 Occurrences starting 06/25/2024 until 06/25/2025 [facility] Comment on above: 5 Occurrences starting 06/25/2024 until 06/25/2025 End: 11-10-2025 Alanine aminotransferase [Enzymatic activity/volume] in Serum or Plasma ALT Lab Routine Encounter for long-term (current) use of high-risk medication 1 Occurrences starting 11/10/2024 until 11/10/2025 [facility] Comment on above: 1 Occurrences starting 11/10/2024 until 11/10/2025 End: 06-02-2025 Aspartate aminotransferase [Enzymatic activity/volume] in Serum or Plasma AST Lab Routine Encounter for long-term (current) use of high-risk medication 1 Occurrences starting 06/02/2024 until 06/02/2025 [facility] Comment on above: 1 Occurrences starting 06/02/2024 until 06/02/2025 End: 06-25-2025 Aspartate aminotransferase [Enzymatic activity/volume] in Serum or Plasma AST Lab Routine Rheumatoid arthritis, involving unspecified site, unspecified whether rheumatoid factor present (HCC) 5 Occurrences starting 06/25/2024 until 06/25/2025 [facility] Comment on above: 5 Occurrences starting 06/25/2024 until 06/25/2025 End: 11-10-2025 Aspartate aminotransferase [Enzymatic activity/volume] in Serum or Plasma AST Lab Routine Encounter for long-term (current) use of high-risk medication 1 Occurrences starting 11/10/2024 until 11/10/2025 [facility] Comment on above: 1 Occurrences starting 11/10/2024 until 11/10/2025 [facility] End: 06-02-2025 C reactive protein [Mass/volume] in Serum or Plasma CRP, Inflammation Lab Routine Seropositive rheumatoid arthritis of multiple joints (HCC) 1 Occurrences starting 06/02/2024 until 06/02/2025 [facility] Comment on above: 1 Occurrences starting 06/02/2024 until 06/02/2025 End: 11-10-2025 C reactive protein [Mass/volume] in Serum or Plasma CRP, Inflammation Lab Routine Seropositive rheumatoid arthritis of multiple joints (HCC) 1 Occurrences starting 11/10/2024 until 11/10/2025 [facility] Comment on above: 1 Occurrences starting 11/10/2024 until 11/10/2025 End: 01-14-2025 Complete blood count with white cell differential, manual CBC and Differential Lab Routine Encounter for long-term (current) use of high-risk medication 1 Occurrences starting 01/28/2024 until 01/14/2025 [facility] Work Phone: Comment on above: 1 Occurrences starting 01/28/2024 until 01/14/2025 End: 06-02-2025 Complete blood count with white cell differential, manual CBC and Differential Lab Routine Encounter for long-term (current) use of high-risk medication 1 Occurrences starting 06/02/2024 until 06/02/2025 [facility] Comment on above: 1 Occurrences starting 06/02/2024 until 06/02/2025 End: 06-25-2025 Complete blood count with white cell differential, manual CBC and Differential Lab Routine Rheumatoid arthritis, involving unspecified site, unspecified whether rheumatoid factor present ([facility]) 5 Occurrences starting 06/25/2024 until 06/25/2025 [facility] Work Phone: Comment on above: 5 Occurrences starting 06/25/2024 until 06/25/2025 End: 11-10-2025 Complete blood count with white cell differential, manual CBC and Differential Lab Routine Encounter for long-term (current) use of high-risk medication 1 Occurrences starting 11/10/2024 until 11/10/2025 [facility] Comment on above: 1 Occurrences starting 11/10/2024 until 11/10/2025 Comprehensive metabo lic 1999 panel - Serum or Plasma [facility] Comprehensive metabo lic 1999 panel - Serum or Plasma [facility] Comprehensive metabo lic 1999 panel - Serum or Plasma [facility] End: 06-02-2025 Creatine kinase [Enzymatic activity/volume] in Serum or Plasma CPK NO MB Lab Routine Fibromyalgia 1 Occurrences starting 06/02/2024 until 06/02/2025 [facility] Work Phone: Comment on above: 1 Occurrences starting 06/02/2024 until 06/02/2025 End: 06-02-2025 Creatinine [Mass/volume] in Serum or Plasma Creatinine, serum Lab Routine Encounter for long-term (current) use of high-risk medication 1 Occurrences starting 06/02/2024 until 06/02/2025 [facility] Comment on above: 1 Occurrences starting 06/02/2024 until 06/02/2025 End: 06-25-2025 Creatinine [Mass/volume] in Serum or Plasma Creatinine, Serum Lab Routine Rheumatoid arthritis, involving unspecified site, unspecified whether rheumatoid factor present (HCC) 5 Occurrences starting 06/25/2024 until 06/25/2025 [facility] Comment on above: 5 Occurrences starting 06/25/2024 until 06/25/2025 End: 11-10-2025 Creatinine [Mass/volume] in Serum or Plasma Creatinine, serum Lab Routine Encounter for long-term (current) use of high-risk medication 1 Occurrences starting 11/10/2024 until 11/10/2025 [facility] Comment on above: 1 Occurrences starting 11/10/2024 until 11/10/2025 DXA Skeletal system. axial Views for bone density [facility] End: 06-02-2025 Erythrocyte sedimentation rate Sedimentation Rate Lab Routine Seropositive rheumatoid arthritis of multiple joints (HCC) 1 Occurrences starting 06/02/2024 until 06/02/2025 [facility] Comment on above: 1 Occurrences starting 06/02/2024 until 06/02/2025 End: 11-10-2025 Erythrocyte sedimentation rate Sedimentation Rate Lab Routine Seropositive rheumatoid arthritis of multiple joints (HCC) 1 Occurrences starting 11/10/2024 until 11/10/2025 [facility] Comment on above: 1 Occurrences starting 11/10/2024 until 11/10/2025 End: 01-27-2025 Hepatitis B surface antibody measurement Hepatitis B Surface Antibody Lab Routine Encounter for screening for other viral diseases 1 Occurrences starting 01/28/2024 until 01/27/2025 [facility] Comment on above: 1 Occurrences starting 01/28/2024 until 01/27/2025 End: 01-27-2025 Hepatitis B surface antigen measurement Hepatitis B Surface Antigen Lab Routine Encounter for screening for other viral diseases 1 Occurrences starting 01/28/2024 until 01/27/2025 [facility] Comment on above: 1 Occurrences starting 01/28/2024 until 01/27/2025 End: 01-27-2025 Hepatitis C antibody measurement Hepatitis C Antibody Lab Routine Encounter for screening for other viral diseases 1 Occurrences starting 01/28/2024 until 01/27/2025 [facility] Comment on above: 1 Occurrences starting 01/28/2024 until 01/27/2025 End: 11-10-2025 Immunoglobulin measurement IgG, IgA, IgM Immunoglobulins Lab Routine Encounter for long-term (current) use of high-risk medication 1 Occurrences starting 11/10/2024 until 11/10/2025 [facility] Work Phone: Comment on above: 1 Occurrences starting 11/10/2024 until 11/10/2025 MG Breast - bilatera l Screening [facility] Patient Education Colon polyps H emorrhoids (DC) Esophageal Dilation Hiatal Hernia (DC) Esophageal Stricture (DC) Know your Meds [facility] Work Phone: Patient referral [facility] Work Phone: End: 09-21-2024 PET+CT Guidance for localization of tumor of Skull base to mid-thigh-- W [id number] IV NM PET/CT SKULL-THIGH INITIAL Radiology Routine Diffuse large B-cell lymphoma of solid organ excluding spleen (HCC) 1 Occurrences starting 08/23/2023 until 09/21/2024 [facility] Work Phone: Comment on above: 1 Occurrences starting 08/23/2023 until 09/21/2024 POCT EKG POCT EKG ECG Rou tanner Paroxysmal atrial fibrillation (CMS-HCC) Coronary artery disease involving [place] coronary artery of [place] heart, unspecified whether angina present 05/21/2023 [facility] Work Phone: End: 01-27-2025 T-Spot TB Screen T-Spot TB Screen Lab Routine Encounter for long-term (current) use of high-risk medication 1 Occurrences starting 01/28/2024 until 01/27/2025 [facility] Comment on above: 1 Occurrences starting 01/28/2024 until 01/27/2025 [facility] Immunizations Immunization Date Immunization Notes Care Provider Fa cili 01-04-2024 Respiratory Syncytia l Virus Vaccine, Adjuvanted (Arexvy/RSV), Historical Servando Umana MD Work Phone: [facility] 01-04-2024 tetanus toxoid, redu ludwin diphtheria toxoid, and acellular pertussis vaccine, adsorbed Servando Umana MD Work Phone: [facility] 02-25-2021 Pfizer-BioNTech COVID-19 Vacc 30 MCG/0.3ML Intramuscular Suspension Ed Lawton Work Phone: [facility] 06-21-2020 Pfizer-BioNTech COVID-19 Vacc 30 MCG/0.3ML Intramuscular Suspension Ed aLwton Work Phone: [facility] 05-29-2020 Pfizer-BioNTech COVID-19 Vacc 30 MCG/0.3ML Intramuscular Suspension Ed Lawton Work Phone: [facility] 01-02-2019 pneumococcal conjuga te vaccine, 13 valent Ed Lawton Work Phone: [facility] Payers Date Payer Category Payer Medicare Managed Car e (unspecified) [facility] COMPLETE (O SNP) [id number] 2024 Medicare [id number] 2023 Medicare (Managed Care) AN[employer]M MEDICARE ADVANTAGE [id number] 2023 Medicare [id number] 2023 Medicare HMO [id number]. [id number] 2022 Self-pay [id number] 2021 Medicare [id number]. [id number] 2020 Medicaid [id number]. 1.13.424. [id number] 2020 Unknown [id number] 1959 Medicare [id number] 2.16.840.1.733183.19 1959 Unknown [id number] 2.16.840.1.427101.3.579. 2.593 1959 Unknown [id number] 2.16.840.1.334722.3.579. 2.593 1959 Unknown [id number] 2.16.840.1.976140.3.579. 2.593 1959 Unknown [id number] 2.16.840.1.883761.3.579. 2.593 1959 Unknown [id number] 2.16.840.1.208866.3.579. 2.593 1959 Unknown [id number] 2.16.840.1.328735.3.579. 2.593 1959 Unknown [id number] 2.16.840.1.025176.3.579. 2.1259 1959 Unknown [id number] 2.16840.1.152765.3.579. 2.1259 1959 Unknown [id number] 2.16840.1.741439.3.579. 2.903 1959 Unknown [id number] 2.16840.1.066929.3.579. 2.903 1959 Unknown [id number] 2.16840.1.333383.3.579. 2.1286 1959 Unknown [id number] 2.16840.1.969378.3.579. 2.1285 1959 Unknown [id number] 2.0.1.703496.3.579. 2.1285 1959 Unknown [id number] 2.0.1.712421.3.579. 2.90 1959 Unknown [id number] 2.840.1.037587.3.579. 2.903 1959 Unknown [id number] 2.840.1.285862.3.579. 2.903 1959 Unknown [id number] 2.840.1.777798.3.579. 2.903 1959 Unknown [id number] 2.16840.1.420688.3.579. 2.903 Medicaid [id number] Medicare Medicare [id number] Unknown Unknown HCAP/HFA/FAP Active [id number] Unknown [id number] 2.16840.1.668680.3.579. 2.531 Unknown [id number] 2.16840.1.930015.3.579. 2.531 Social History Date Type Detail Facility Start: 04-26-2020 End: 07-27-2023 Daily caffeine consumption Daily caffeine consumption [facility] Comment on above: 2 CUPS OF COFFEE IN AM; Start: 04-26-2020 End: 07-27-2023 Sex Assigned At [facility] Start: 06-16-2021 End: 07-31-2024 Tobacco smoking status NHIS Smoker (finding) [facility] Start: 1960 Sex Assigned At Female F [facility] Start: 09-14-2022 End: 07-27-2023 Tobacco smoking status NJIS Smokes tobacco daily [facility] Start: 03-19-1978 History of tobacco use Cigarette Smo ker [facility] History of tobacco use Passive smoker [facility] Adult Depression Screening Assessment 3 [facility] Start: 1960 Sex Assigned At Not on file [facility] Start: 08-18-2023 Gender identity Identifies as female gender (finding) [facility] Start: 12-10-2023 End: 06-06-2024 Alcoholic beverage intake Lifetime non-drinker (finding) [facility] Start: 12-10-2023 Alcohol Comment [facility] Start: 12-04-2023 Tobacco use and exposure Former smokeless tobacco user [facility] Start: 01-29-2024 End: 11-11-2024 Alcoholic beverage intake Ex-drinker (finding) [facility] Start: 09-14-2022 Tobacco use and exposure Smokeless tobacco non-user [facility] How often to you hav e a drink containing alcohol? Never [facility] Start: 05-16-2019 End: 07-31-2024 Sex Female (finding) [facility] Medical Equipment Procedure Code Equipment Code Equipment [...] Crd Mary Ellen q Ii Ins - [id number] - [id number] Start: 11-18-2021 CL STENT RAVEN 3.0 X 12 FDA Start: 05-10-2018 CL STENT RAVEN 3.0 X 12 FDA Start: 05-10-2018 CL STENT RAVEN 3.0 X 12 FDA Start: 05-10-2018 Goals Date Patient Goal Desired Activity /State Clinical Notes 06-06-2021 to 12-04-2024 Telephone Encounter - Martina Mrash CMA - 12/04/2024 8:33 AM EDTTelephone Encounter - Martina Marsh CMA - 12/04/2024 8:33 AM EDTPatient Fidelia Pompa MA - 11/10/2024 2:05 PM EDT Note Date & Type Note Facility 12-04-2024 Miscellaneous Notes Called patient to remind them to bring their most current copy of their medication list with them to their appt. Patient cancelled due to [facility] being unavailable and [facility] being OON. CLARA documented in this encounter [facility] 12-04-2024 Telephone encounter Note Called patient to remind them to bring their most current copy of their medication list with them to their appt. Patient cancelled due to [facility] being unavailable and [facility] being OON. JKB [facility] 11-10-2024 Josep Bhatia MA - 11/10/2024 2:34 PM EDT Complete labs at the end of Bhavna Continue with rituxan Our office does not accept electronic refill requests from pharmacies. If you need refills, please notify our staff at the time of your office visit or by contacting our office via phone or [facility] [employer]. Thank You For Trusting [facility] with Your Care! Our goal is to provide you with exceptional patient care. You may receive a patient satisfaction survey via email or text from [facility] [employer]. We appreciate your feedback and kindly ask that you complete the survey The associates caring for you today were: Gamma Ray Operator: Josep Nurse: Tameka Bake Room Worker: Fidelia You can help manage your healthcare 09/10 with [facility]. To activate your account, visit [facility] [employer]. Until your next visit, Servando Umana MD and Team documented in this encounter [facility] 11-10-2024 History of Presen t illness Narrative RAPID3 Composite Score MDHAQ (0-10): 4.3 Patient pain VAS (0-10): 4 Patient global assessment VAS (0-10): 5 RAPID3 Total Score: 13.3 Remission: <3 Low Disease Activity: <6 Moderate Disease Activity: >=6 and <=12 High Disease Activity: >12 Review of Systems CONSTITUTIONAL: Fever no Fatigue yes Abnormal weight loss/gain no HEENT: Change of Vision no Dry eyes yes Painful eye no Dry Mouth yes Mouth sores/lesions no Hair loss no Difficulty swallowing yes Scalp Tenderness no Jaw Pain no Swollen glands no CVS: Chest pain/ discomfort no Palpitations no RESPIRATORY: Shortness of breath no Difficulty breathing no Cough yes Edema no : Blood in urine no Painful urination no GI: Change in stool no Black stool no Visible blood in stool no Abdominal pain no Heartburn no NEURO: Convulsions no Headache no Dizziness yes Weakness yes Numbness no INTEGUMENTARY: Rash, generalized no Rash, facial no Finger pain with discoloration (Raynaud s)no Digital ulcers no HEMATOLOGY: Easy bruisability yes PSYCH: Anxiety yes Depression yes Problems with social activities yes Cosigned by Servando Umana MD at 11/10/2024 2:22 PM EDT I had the pleasure of seeing Arian Fritz in FOLLOW UP at [facility] [address] [place] [phone] for Management of 1. Seropositive rheumatoid arthritis of multiple joints (HCC) Sedimentation Rate CRP, Inflammation 2. Fibromyalgia 3. Abnormal weight loss 4. Encounter for long-term (current) use of high-risk medication IgG, IgA, IgM Immunoglobulins ALT AST CBC and Differential Creatinine, serum Interim history: 3-month follow-up On her first visit in my clinic, extensive past medical history for seropositive rheumatoid arthritis was documented. Patient had been out of her methotrexate for a long time, she was started on 4 tablets weekly with some improvement in joint pain swelling and stiffness. It was then increased to 7 tablets weekly. Higher dose of methotrexate helpful. Tolerating methotrexate without alopecia oral ulcers infections. she has been on Rituxan infusion, received first series of 2 on June 25 and July 09/2025. Tolerated well without any infusion reaction chest pain shortness of breath or rashes. She reports significant improvement in joint pain swelling and stiffness She continues on gabapentin 300 mg nightly for fibromyalgia pain. Pain has improved methotrexate and gabapentin without any side effects, no alopecia oral ulcers or infections from methotrexate, no nausea dizziness sedation from gabapentin She is also on a high dose of Lipitor at 80 mg daily But CPK normal She has been diagnosed with early dementia in April 2024, her daughter wonders if she should continue gabapentin Medications: Current Outpatient Medications Medication Sig Dispense [...] (80 mg total) by mouth daily . desvenlafaxine succinate (PRISTIQ) 100 MG 24 hr tablet Take 1 (one) tablet (100 mg total) by mouth daily . desvenlafaxine succinate (PRISTIQ) 50 MG 24 hr tablet Take 1 (one) tablet (50 mg total) by mouth daily . folic acid (FOLVITE) 1 MG tablet Take 1 (one) tablet (1 mg total) by mouth daily Do not take on the day of methotrexate . 90 tablet 1 furosemide (LASIX) 20 MG tablet 1 (one) tablet (20 mg total) . gabapentin (NEURONTIN) 300 MG capsule Take 1 (one) capsule (300 mg total) by mouth at bedtime . 90 capsule 1 Jardiance 10 mg Tab Take 1 (one) tablet (10 mg total) by mouth daily . levothyroxine (SYNTHROID, LEVOTHROID) 75 MCG tablet 1 (one) tablet (75 mcg total) . memantine (NAMENDA) 5 MG tablet .COMPLEX methoTREXate (TREXALL) 2.5 MG tablet Take 7 (seven) tablets (17.5 mg total) by mouth once a week . 84 tablet 1 metoprolol succinate (TOPROL-XL) 25 MG 24 hr [...] History: She Past Medical History: Diagnosis Date Alzheimer's dementia of other onset, without behavioral disturbance, psychotic disturbance, mood disturbance, or anxiety, unspecified dementia severity ([facility]) 04/2024 Anxiety Arthritis of neck Atrial fibrillation with rapid ventricular response ([facility]) Atrial flutter ([facility]) Bipolar II disorder ([facility]) Branchial cleft Chronic fatigue Chronic systolic CHF (congestive heart failure) ([facility]) Cigarette nicotine dependence COPD (chronic obstructive pulmonary disease) ([facility]) Coronary artery disease involving [place] artery of transplanted heart without angina pectoris CVA (cerebral vascular accident) ([facility]) Dysphagia Fibromyalgia Fibromyalgia, primary GERD (gastroesophageal reflux disease) Hand swelling Hip arthrosis History of arteriography History of cardioversion Hyperlipidemia Hypothyroidism Iron deficiency anemia Knee swelling Low back pain Non Hodgkin's lymphoma ([facility]) Osteoporosis Periarthritis of shoulder Pharyngeal dysphagia Rheumatoid arthritis (HCC) Past Surgical History: She Past Surgical History: Procedure Laterality Date CORONARY ANGIOPLASTY WITH STENT PLACEMENT 2017 THROAT SURGERY 1974 Social History: She Social History Socioeconomic History Marital status: Tobacco Use Smoking status: Every Day Current packs/day: 1.50 Average packs/day: 1.5 packs/day for 46.6 years (70.0 ttl pk-yrs) Types: Cigarettes Start date: 1978 Smokeless tobacco: Former Substance and Sexual Activity Alcohol use: Not Currently Drug use: Yes Types: Benzodiazepines, Marijuana Comment: Edibles Sexual activity: Not Currently Social Drivers of Health Food Insecurity: No Food Insecurity (06/06/2024) Received from [facility] [place] Hunger Screening Within the past 12 months we worried whether our food would run out before we got money to buy more.: Never True Within the past 12 months the food we bought just didn't last and we didn't have money to get more.: Never True ROS- SEE ATTESTED STAFF NOTE Physical Examination: BP 97/63 (BP Location: Left arm, Patient Position: Sitting, BP Cuff Size: Adult) Pulse (!) 59 Temp 97.9 F (36.6 C) (Oral) Ht 5' 2.5 Wt 58.1 kg (128 lb) SpO2 95% Comment: Room air BMI 23.04 kg/m GENERAL: She is in no apparent [...] Diagnostic Data: Component Latest Ref Rng 06/02/2024 09/02/2024 WBC ([facility]) 3.8 - 10.8 Thousand/uL 7.4 7.5 RBC ([facility]) 3.80 - 5.10 Million/uL 4.52 4.32 Hemoglobin ([facility]) 11.7 - 15.5 g/dL 13.7 13.3 HCT ([facility]) 35.0 - 45.0 % 41.3 41.3 MCV ([facility]) 80.0 - 100.0 fL 91.4 95.6 MCH ([facility]) 27.0 - 33.0 pg 30.3 30.8 MCHC ([facility]) 32.0 - 36.0 g/dL 33.2 32.2 RDW ([facility]) 11.0 - 15.0 % 14.8 15.6 (H) Platelets ([facility]) 140 - 400 Thousand/uL 347 417 (H) MPV ([facility]) 7.5 - 12.5 fL 10.3 10.7 Absolute Neutrophils ([facility]) 1,500 - 7,800 cells/uL 4,211 4,643 Absolute Lymphocytes ([facility]) 850 - 3,900 cells/uL 2,605 2,235 Absolute Monocytes ([facility]) 200 - 950 cells/uL 437 450 Absolute Eosinophils ([facility]) 15 - 500 cells/uL 111 120 Absolute Basophils ([facility]) 0 - 200 cells/uL 37 53 Neutrophils (Quest) % 56.9 61.9 Lymphocytes (Quest) % 35.2 29.8 Monocytes (Quest) % 5.9 6.0 Eosinophils (Quest) % 1.5 1.6 Basophils (Quest) % 0.5 0.7 Creatinine (Quest) 0.50 - 1.05 mg/dL 0.88 0.80 eGFR ([facility]) > OR = 60 mL/min/1.73m2 73 82 Sed Rate (Quest) < OR = 30 mm/h 111 (H) 70 (H) AST ([facility]) 10 - 35 U/L 8 (L) 9 (L) ALT ([facility]) 6 - 29 U/L 10 10 Creatine Kinase, Total ([facility]) 20 - 243 U/L 36 C - Reactive Protein ([facility]) <8.0 mg/L <3.0 Legend: (H) High (L) Low Legend: (H) High (L) Low External labs February 26/2024, normal CBC normal complete metabolic profile and normal magnesium External lab October 2019, vitamin D level normal at 41, sed rate normal at 19, CRP 0.8, serum kappa free high at 28 External lab [facility] December 10, 2018, sed rate of 54, intact PTH normal at 60, no M protein (urine, 8, PIZZA CHEF 1 fibrillation positive, sed rate 41, uric [...] results found for: TSH , T3FREE , [id number] No results found for: GLUCOSE , BUN No results found for: CALCIUM No components found for: ESR , SEDIMENTATIO Chemistry Component Value Date/Time CREATININE 0.80 09/02/2024 1532 No results found for: CALCIUM , ALKPHOS , AST , ALT , BILITOT No results found for: WBC , HGB , HCT , MCV , PLT My clinical impression and plan 1. Seropositive rheumatoid arthritis of multiple joints (HCC), markedly improved methoTREXate (TREXALL) 2.5 MG tablet, continue 7 tablets weekly. Continue Rituxan infusions every 6 months. Preauthorization to be obtained for the next set of infusions to be done in December 2024 CRP, Inflammation Sedimentation Rate to assess disease activity. 2. Fibromyalgia, improved gabapentin (NEURONTIN) 300 MG capsule nightly to continue. If any worsening mental status changes, may want to discontinue, can discuss with neurology Continue Lipitor as CPK normal 3. Abnormal weight loss, stabilized, regained visit since the last visit 4. History of non-Hodgkin's lymphoma, no recurrence 5. Encounter for long-term (current) use of high-risk medication, no reported side effects folic acid (FOLVITE) 1 MG tablet daily to continue except day of methotrexate ALT AST CBC and Differential Creatinine, serum ordered to be completed before the next infusion Because autoimmune disease is associated with increased risk of atherosclerosis, recommend careful attention to blood pressure and lipid control. I recommend using the preventive guidelines established for people with diabetes. Return in about 4 months (around 03/12/2025) for Next scheduled follow up. Servando Umana M.D. Rheumatology Jered, Ed, DO;No ref. provider found Note: This dictation was generated using [employer] voice recognition software. Please excuse any grammatical or spelling errors that may have occurred using the system. documented in this encounter [facility] 11-10-2024 Note I had the pleasure o f seeing Arian Fritz in FOLLOW UP at [facility] [address] [place] [phone] for Management of 1. Seropositive rheumatoid arthritis of multiple joints (HCC) Sedimentation Rate CRP, Inflammation 2. Fibromyalgia 3. Abnormal weight loss 4. Encounter for long-term (current) use of high-risk medication IgG, IgA, IgM Immunoglobulins ALT AST CBC and Differential Creatinine, serum Interim history: 3-month follow-up On her first visit in my clinic, extensive past medical history for seropositive rheumatoid arthritis was documented. Patient had been out of her methotrexate for a long time, she was started on 4 tablets weekly with some improvement in joint pain swelling and stiffness. It was then increased to 7 tablets weekly. Higher dose of methotrexate helpful. Tolerating methotrexate without alopecia oral ulcers infections. she has been on Rituxan infusion, received first series of 2 on June 25 and July 09/2025. Tolerated well without any infusion reaction chest pain shortness of breath or rashes. She reports significant improvement in joint pain swelling and stiffness She continues on gabapentin 300 mg nightly for fibromyalgia pain. Pain has improved methotrexate and gabapentin without any side effects, no alopecia oral ulcers or infections from methotrexate, no nausea dizziness sedation from gabapentin She is also on a high dose of Lipitor at 80 mg daily But CPK normal She has been diagnosed with early dementia in April 2024, her daughter wonders if she should continue gabapentin Medications: Current Outpatient Medications Medication Sig Dispense [...] (80 mg total) by mouth daily . desvenlafaxine succinate (PRISTIQ) 100 MG 24 hr tablet Take 1 (one) tablet (100 mg total) by mouth daily . desvenlafaxine succinate (PRISTIQ) 50 MG 24 hr tablet Take 1 (one) tablet (50 mg total) by mouth daily . folic acid (FOLVITE) 1 MG tablet Take 1 (one) tablet (1 mg total) by mouth daily Do not take on the day of methotrexate . 90 tablet 1 furosemide (LASIX) 20 MG tablet 1 (one) tablet (20 mg total) . gabapentin (NEURONTIN) 300 MG capsule Take 1 (one) capsule (300 mg total) by mouth at bedtime . 90 capsule 1 Jardiance 10 mg Tab Take 1 (one) tablet (10 mg total) by mouth daily . levothyroxine (SYNTHROID, LEVOTHROID) 75 MCG tablet 1 (one) tablet (75 mcg total) . memantine (NAMENDA) 5 MG tablet .COMPLEX methoTREXate (TREXALL) 2.5 MG tablet Take 7 (seven) tablets (17.5 mg total) by mouth once a week . 84 tablet 1 metoprolol succinate (TOPROL-XL) 25 MG 24 hr [...] History: She Past Medical History: Diagnosis Date Alzheimer's dementia of other onset, without behavioral disturbance, psychotic disturbance, mood disturbance, or anxiety, unspecified dementia severity ([facility]) 04/2024 Anxiety Arthritis of neck Atrial fibrillation with rapid ventricular response ([facility]) Atrial flutter ([facility]) Bipolar II disorder ([facility]) Branchial cleft Chronic fatigue Chronic systolic CHF (congestive heart failure) ([facility]) Cigarette nicotine dependence COPD (chronic obstructive pulmonary disease) ([facility]) Coronary artery disease involving [place] artery of transplanted heart without angina pectoris CVA (cerebral vascular accident) ([facility]) Dysphagia Fibromyalgia Fibromyalgia, primary GERD [...] packs/day: 1.50 Average packs/day: 1.5 packs/day for 46.6 years (70.0 ttl pk-yrs) Types: Cigarettes Start date: 1978 Smokeless tobacco: Former Substance and Sex (more content not included)... [facility] 09-02-2024 Instructions Josep Fisher MA - 09/02/2024 3:21 PM EDT Continue same treatment Complete labs Our office does not accept electronic refill requests from pharmacies. If you need refills, please notify our staff at the time of your office visit or by contacting our office via phone or [facility]. Thank You For Trusting [facility] with Your Care! Our goal is to provide you with exceptional patient care. You may receive a patient satisfaction survey via email or text from [employer]. We appreciate your feedback and kindly ask that you complete the survey The associates caring for you today were: Gamma Ray Operator: Josep Nurse: Tameka Bake Room Worker: Fidelia You can help manage your healthcare 09/10 with [facility]. To activate your account, visit [facility]. Until your next visit, Servando Umana MD and Team documented in this encounter [facility] 09-02-2024 History of Presen t illness Narrative RAPID3 Composite Score MDHAQ (0-10): 5.3 Patient pain VAS (0-10): 3 Patient global assessment VAS (0-10): 3.5 RAPID3 Total Score: 11.8 Remission: <3 Low Disease Activity: <6 Moderate Disease Activity: >=6 and <=12 High Disease Activity: >12 Review of Systems CONSTITUTIONAL: Fever no Fatigue yes Abnormal weight loss/gain no HEENT: Change of Vision no Dry eyes yes Painful eye no Dry Mouth no Mouth sores/lesions no Hair loss no Difficulty swallowing yes Scalp Tenderness no Jaw Pain no Swollen glands no CVS: Chest pain/ discomfort no Palpitations no RESPIRATORY: Shortness of breath no Difficulty breathing no Cough no Edema no : Blood in urine no Painful urination no GI: Change in stool no Black stool no Visible blood in stool no Abdominal pain no Heartburn no NEURO: Convulsions no Headache no Dizziness yes Weakness no Numbness no INTEGUMENTARY: Rash, generalized no Rash, facial no Finger pain with discoloration (Raynaud s)yes Digital ulcers no HEMATOLOGY: Easy bruisability yes PSYCH: Anxiety yes Depression yes Problems with social activities no Cosigned by Servando Umana MD at 09/03/2024 5:41 PM EDT I had the pleasure of seeing Arian Fritz in FOLLOW UP at [facility] [address] [place] [phone] for Management of 1. 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 [...] ANGIOPLASTY WITH STENT PLACEMENT 2016 THROAT SURGERY 1973 Social History: She Social History Socioeconomic History [...] Insecurity: No Food Insecurity (06/06/2024) Received from [employer] Hunger Screening Within the past 12 months [...] Cuff Size: Adult) Pulse 64 Temp 98 F (36.7 C) (Oral) Ht 5' 2.5 Wt 56.1 [...] kappa free high at 28 External lab [facility] December 10, 2018, sed rate of 54, intact PTH normal at 60, no M protein (urine, 8, PIZZA CHEF 1 fibrillation positive, sed rate 41, uric [...] results found for: TSH , T3FREE , [id number] No results found for: GLUCOSE , BUN [...] 12/03/2024) for Next scheduled follow up. Servando Umana M.D. Rheumatology Jered, Ed, DO;No ref. provider found Note: This dictation was generated using [employer] voice recognition software. Please excuse any grammatical or spelling errors that may have occurred using the system. documented in this encounter [facility] 09-02-2024 Note I had the pleasure o f seeing Arian Fritz in FOLLOW UP at [facility] [address] [place] [phone] for Management of 1. Seropositive rheumatoid arthritis [...] neck Atrial fibrillation with rapid ventricular response ([facility]) Atrial flutter ([facility]) Bipolar II disorder ([facility]) Branchial cleft Chronic fatigue Chronic systolic CHF (congestive heart failure) ([facility]) Cigarette nicotine dependence COPD (chronic obstructive pulmonary disease) (HCC) Coronary artery disease involving [place] artery of transplanted heart without angina pectoris CVA (cerebral vascular accident) ([facility]) Dysphagia Fibromyalgia Fibromyalgia, primary GERD (gastroesophageal reflux disease) Hand swelling Hip arthrosis History of arteriography History of cardioversion Hyperlipidemia Hypothyroidism Iron deficiency anemia Knee swelling Low back pain Non Hodgkin's lymphoma (HCC) Osteoporosis Periarthritis of shoulder Pharyngeal dysphagia Rheumatoid arthritis (HCC) Past Surgical History: She Past Surgical History: Procedure Laterality Date CORONARY ANGIOPLASTY WITH STENT PLACEMENT 2017 THROAT SURGERY 1973 Social History: She Social History Socioeconomic History [...] Insecurity: No Food Insecurity (06/06/2024) Received from [employer] (more content not included)... [facility] 08-12-2024 Miscellaneous Notes Ov-06/06/24 Next ov-12/05/24 [facility] Telephone encounter Note Ov-06/06/24 Next ov-12/05/24 [facility] Evaluation note Diagnosis Onset Date Resolution Coronary artery disease involving [place] artery of transplanted heart witho acute July 31, 2024 2:02pm Iron deficiency anemia, unspecified acute July 31, 2024 2:02pm Anxiety chronic July 31, 2024 2:02pm ASHD (arteriosclerotic heart disease) chronic July 31, 2024 2:02pm Barretts esophagus chronic July 312024 2:02pm Bipolar II disorder chronic July 172024 2:02pm Chronic atrial fibrillation chronic July 31, 2024 2:02pm Chronic fatigue chronic July 31, 2024 2:02pm Chronic obstructive pulmonary disease (COPD) chronic July 2:02pm Chronic systolic congestive heart failure chronic July 2:02pm Cigarette nicotine dependence without complication chronic July 31, 2024 2:02pm Essential hypertension chronic Ma 2024 2:02pm GERD (gastroesophageal reflux disease) chronic July 31, 2024 2:02pm Hyperlipidemia chronic July 31, 2024 2:02pm Hypothyroidism chronic July 31, 2024 2:02pm Mild cognitive impairment chronic July 31, 2024 2:02pm Osteoporosis chronic July 31 2:02pm Pharyngeal dysphagia chronic July 31, 2024 2:02pm Rheumatoid arthritis chronic July 31, 2024 2:02pm 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 ( chronic July 31, 2024 2:02pm Well adult exam noneactive July 31, 2024 2:02pm [facility] Work Phone: [phone]) 471-783804-23-2025 History of Present illness Narrative* Mirtha Guerra RN - 07/09/2024 12:22 PM EDT Arian Fritz presents today for administration of Rituximab along with ordered pre-medications and post-medications. Patient's condition is currently appropriate to continue with administration of themedication as defined in the care plan. Medication(s) was administered and well-tolerated by the patient. Today's Vitals Blood pressure (!) 90/56, pulse 67, temperature 97.7 F (36.5 C), temperature source Oral, resp. rate 16, weight 58.2 kg (128 lb 4.9 oz). Most recent labs Lab Results Component Value Date EXTMCV 91.4 06/02/2024 Lab Results Component Value Date CREATININE 0.88 06/02/2024 No results found for: ALT , AST , GGT , ALKPHOS , BILITOT Most recent external labs Lab Results Component Value Date EXTWBC 7.4 06/02/2024 EXTRBC 4.52 06/02/2024 EXTHGB 13.7 06/02/2024 EXTHCT 41.3 06/02/2024 EXTMCV 91.4 06/02/2024 EXTMCH 30.3 06/02/2024 EXTMCHC 33.2 06/02/2024 EXTRDW 14.8 06/02/2024 EXTPLATELETC 347 06/02/2024 EXTMPV 10.3 06/02/2024 EXTABSOLUTEN 4,211 06/02/2024 EXTABSOLUTEL 2,605 06/02/2024 EXTABSOLUTEM 437 06/02/2024 EXTEOABS 111 06/02/2024 EXTNEUTROPHI 56.9 06/02/2024 EXTLYMPHOCYT 35.2 06/02/2024 EXTMONOCYTES 5.9 06/02/2024 EXTBASOPHILS 0.5 06/02/2024 No results found for: EXTHEMOGLOBI No results found for: EXTCHOL , EXTHDL , EXTTRIG , EXTLDLC , EXTCHOLHDL , EXTNONHDLCHO Lab Results Component Value Date EXTAST 8 (L) 06/02/2024 Lab Results Component Value Date EXTALT 10 06/02/2024 Lab Results Component Value Date EXTEGFR 73 06/02/2024 * Mirtha Guerra RN - 07/09/2024 10:36 AM EDT Biologic Infusion Questionnaire In the past 2 weeks have you had: Fatigue no Night sweats no Runny nose no Facial pain no Earache no Cough no Pain/blood when urinating no Infection no Antibiotics no Open sore or cut no Abdominal pain no Fever no Sore throat no Flu-like symptoms no Tooth pain no Breathing problems no Headache no Since your last infusion have you: Been exposed to anyone who may have Tuberculosis? no Had surgery? no Received a vaccination (shingles/MMR/Flu-Mist) no Started any new medication? no Had a change in medical history? no Scheduled any major dental work? no Been no Have you ever had an infusion reaction? no If yes, describe the reaction n/a documented in this [id number] Instructions* Patient Instructions* Noris Easton RN - 06/25/2024 11:38 AM EDT You have been given an information packet regarding the biologic medicaton you received during today's infusion. Call your Doctor immediately if at any time you begin to experience signs or symptoms of an infection, such as: Feeling very tired Cough Runny nose Fever of 100.5 or more Sore throat Rash Breathing problems Before your next scheduled infusion if you: Begin to experience signs or symptoms of an infection Are prescribed an antibiotic Travel out of the country or are exposed to anyone who has traveled out of the country Have surgery Have any change to your current health You should contact your Doctor as well as the [facility]. Your infusion may need to be rescheduled. You should also contact your doctor before receiving any vaccine. documented in this [id number] History of Present illness Narrative* Noris Easton RN - 06/25/2024 11:37 AM EDT Arian Fritz presents today for administration of rituximab along with ordered pre-medications and post-medications. Patient's condition is currently appropriate to continue with administration of themedication as defined in the care plan. Medication(s) was administered and well-tolerated by the patient. Today's Vitals Blood pressure 101/65, pulse 69, temperature 98.3 F (36.8 C), temperature source Oral, resp. rate 16, weight 56.7 kg (125 lb), SpO2 99%. Most recent labs Lab Results Component Value Date EXTMCV 91.4 06/02/2024 Lab Results Component Value Date CREATININE 0.88 06/02/2024 No results found for: ALT , AST , GGT , ALKPHOS , BILITOT Most recent external labs Lab Results Component Value Date EXTWBC 7.4 06/02/2024 EXTRBC 4.52 06/02/2024 EXTHGB 13.7 06/02/2024 EXTHCT 41.3 06/02/2024 EXTMCV 91.4 06/02/2024 EXTMCH 30.3 06/02/2024 EXTMCHC 33.2 06/02/2024 EXTRDW 14.8 06/02/2024 EXTPLATELETC 347 06/02/2024 EXTMPV 10.3 06/02/2024 EXTABSOLUTEN 4,211 06/02/2024 EXTABSOLUTEL 2,605 06/02/2024 EXTABSOLUTEM 437 06/02/2024 EXTEOABS 111 06/02/2024 EXTNEUTROPHI 56.9 06/02/2024 EXTLYMPHOCYT 35.2 06/02/2024 EXTMONOCYTES 5.9 06/02/2024 EXTBASOPHILS 0.5 06/02/2024 No results found for: EXTHEMOGLOBI No results found for: EXTCHOL , EXTHDL , EXTTRIG , EXTLDLC , EXTCHOLHDL , EXTNONHDLCHO Lab Results Component Value Date EXTAST 8 (L) 06/02/2024 Lab Results Component Value Date EXTALT 10 06/02/2024 Lab Results Component Value Date EXTEGFR 73 06/02/2024 * Noris Easton RN - 06/25/2024 11:01 AM EDT Biologic Infusion Questionnaire In the past 2 weeks have you had: Fatigue no Night sweats no Runny nose yes (chronic) Facial pain no Earache no Cough no Pain/blood when urinating no Infection no Antibiotics no Open sore or cut no Abdominal pain no Fever no Sore throat no Flu-like symptoms no Tooth pain no Breathing problems no Headache no Since your last infusion have you: Been exposed to anyone who may have Tuberculosis? no Had surgery? no Received a vaccination (shingles/MMR/Flu-Mist) no Started any new medication? no Had a change in medical history? no Scheduled any major dental work? no Been na Have you ever had an infusion reaction? no If yes, describe the reaction na documented in this [id number] History of Present illness Narrative* Bernarda Joya MD - 06/06/2024 11:45 AM EDT Arian Fritz Date of visit: 06/06/2024 Date of : 1960 Age: 64 y.o. Patient Active Problem List Diagnosis Hypothyroidism Hypertension Osteoporosis Asthma GERD (gastroesophageal reflux disease) Hyperlipidemia Dysphasia Anxiety COPD (chronic obstructive pulmonary disease) ([facility]) Paroxysmal atrial fibrillation ([facility] Anemia Leg edema Elevated brain natriuretic peptide (BNP) level Rheumatoid arthritis of hand ([facility]) Ischemic cardiomyopathy Coronary artery disease involving [place] coronary artery of [place] heart Status post placement of implantable loop recorder Allergies Allergen Reactions Prochlorperazine Other (See Comments) Neurological sx compazine Current Outpatient Medications Medication Sig Dispense Refill albuterol (PROVENTIL HFA;VENTOLIN HFA) 90 mcg/actuation inhaler Inhale 2 puffs 4 (four) times a day. ALPRAZolam (XANAX) 1 mg tablet Take 1 tablet (1 mg total) by mouth as needed. amitriptyline (ELAVIL) 25 mg tablet Take 1 tablet (25 mg total) by mouth nightly. aspirin 81 mg chewable tablet Chew 1 tablet (81 mg total) and swallow in the morning. desvenlafaxine (PRISTIQ) 50 mg 24 hr tablet Take 1 tablet (50 mg total) by mouth in the morning. ELIQUIS 5 mg tablet TAKE 1 TABLET (5 MG TOTAL) BY MOUTH IN THE MORNING AND BEFORE BEDTIME 180 tablet 2 folic acid (FOLVITE) 1 mg tablet Take 1 tablet (1 mg total) by mouth in the morning. furosemide (LASIX) 20 mg tablet Take 1 tablet (20 mg total) by mouth daily. 90 tablet 3 gabapentin (NEURONTIN) 300 mg capsule Take 1 capsule (300 mg total) by mouth in the morning. JARDIANCE 10 mg tablet tablet take 1 tablet by mouth every day in the morning 90 tablet 2 levothyroxine (SYNTHROID, LEVOTHROID) 88 MCG tablet Take 1 tablet (88 mcg total) by mouth in the morning. memantine (NAMENDA) 10 mg tablet Take 1 tablet (10 mg total) by mouth in the morning and 1 tablet (10 mg total) before bedtime. methotrexate 2.5 mg chemo tablet Take 7 tablets by mouth every 7 days metoprolol succinate XL (TOPROL XL) 25 mg 24 hr tablet Take 1 tablet (25 mg total) by mouth in the morning. 90 tablet 1 pantoprazole (PROTONIX) 40 mg EC tablet Take 1 tablet (40 mg total) by mouth in the morning. potassium chloride (KLOR-CON) 20 mEq packet Take 1 packet (20 mEq total) by mouth in the morning and 1 packet (20 mEq total) before bedtime. atorvastatin (LIPITOR) 40 mg tablet Take 1 tablet (40 mg total) by mouth in the morning. 90 tablet 3 predniSONE (DELTASONE) 5 mg tablet TAKE 1-2 TABLETS BY MOUTH EVERY DAY NEEDED sertraline (ZOLOFT) 100 mg tablet Take 1 tablet (100 mg total) by mouth nightly. No current facility-administered medications for this visit. Chief Complaint Patient presents with Follow-up 1 YEAR Cardiomyopathy Atrial Fibrillation Hypertension History of Present Illness 64yo doing well HFimprovedEF ICM, LAD stenting 2021, normal EF now Previously came off lasix 20mg daily and ended up admitted with CHF She has afib, s/p ablation with no afib on loop Past Medical History: Diagnosis Date Atrial fibrillation ([facility]) COPD (chronic obstructive pulmonary disease) ([facility]) Coronary artery disease Hypertension Stroke ([facility]) No data recorded No data recorded No [...] file Tobacco Use Smoking status: Every Day Current packs/day: 0.50 Types: Cigarettes Smokeless tobacco: Never Vaping Use Vaping status: Former Substances: Nicotine Devices: Disposable Substance and Sexual Activity Alcohol use: Never Drug use: Never Sexual activity: Not on file Other Topics Concern Caffeine Use Yes Social History Narrative Not on file Social Drivers of Health Financial Resource Strain: Not on file Food Insecurity: No Food Insecurity (06/06/2024) Hunger Screening Food Insecurity - Worry: Never True Food Insecurity - Inability: Never True Transportation Needs: Not on file Physical Activity: Not on file Stress: Not on file Social Connections: Not on file Interpersonal Safety: Not on file Housing Instability: Not on file Review of Systems Review of Systems Constitutional: Positive for malaise/fatigue. HENT: Positive for hearing loss. Eyes: Negative. Respiratory: Negative. Hematologic/Lymphatic: Bruises/bleeds easily. Skin: Negative. Musculoskeletal: Positive for joint pain. Gastrointestinal: Negative. Neurological: Positive for dizziness, light-headedness and loss of balance. Psychiatric/Behavioral: Positive for depression. The patient is [...] mood, memory and judgement. VITAL SIGNS: BP 110/70 (BP Site: Left Arm, BP Postition: Sitting) Pulse 58 Ht 162.6 cm (5' 4 ) Wt 57.2 kg (126 lb) SpO2 98% BMI 21.63 kg/m Orders Placed or Reconciled This Encounter Medications methotrexate 2.5 mg chemo tablet Sig: Take 7 tablets by mouth every 7 days desvenlafaxine (PRISTIQ) 50 mg 24 hr tablet Sig: Take 1 tablet (50 mg total) by mouth in the morning. folic acid (FOLVITE) 1 mg tablet Sig: Take 1 tablet (1 mg total) by mouth in the morning. gabapentin (NEURONTIN) 300 mg capsule Sig: Take 1 capsule (300 mg total) by mouth in the morning. memantine (NAMENDA) 10 mg tablet Sig: Take 1 tablet (10 mg total) by mouth in the morning and 1 tablet (10 mg total) before bedtime. atorvastatin (LIPITOR) 40 mg tablet Sig: Take 1 tablet (40 mg total) by mouth in the morning. Dispense: 90 tablet Refill: 3 Medications Discontinued During This Encounter Medication Reason atorvastatin (LIPITOR) 80 mg tablet Dose adjustment IMPRESSIONS/PLAN 1. Paroxysmal atrial fibrillation (CMS-HCC) - POCT EKG 2. Coronary artery disease involving [place] coronary artery of [place] heart, unspecified whether angina present - POCT EKG 3. Ischemic cardiomyopathy - POCT EKG 4. Longstanding persistent atrial fibrillation (CMS-HCC) - POCT EKG Impression CAD, LAD stenting 2021 ICM, recovery of LV function, last echo 2021 EF 50-55. On jardiance and lasix. Would not stop lasix. She looks good on exam. Previously taken off lasix and ended up with CHF RA, doing fairly but about to start ritux. ESR significantly elevated EKG today normal I would continue eliquis No contraindications to rituximab However would require close monitoring, I would at least see her back sooner in office to make sureno signs of CHF Get echo to reeval EF, since no change in symptoms would get rituximab infusion first and then get echo. She will call to get this scheduled. TODAYS ORDERS Orders Placed This Encounter Procedures POCT EKG FOLLOW UP No follow-ups on file. PCP: Ed Lawton DO Referring Physician: Ed Lawton DO [address] [place] [address] documented in this encounter[facility]03-21-[facility]25 Instructions* Patient Instructions* Noris Zapata, [facility] - 06/06/2024 11:45 AM EDT Are You Ready To Kick The Habit? Free Tobacco Cessation Resources [facility] Services [facility] provide all employees with free tobacco cessation services that include: Counseling to understand nicotine addiction Education about medications that can help you successfully quit Assistance with developing a plan to quit Call to set up an individual appointment or find out when group classes will be held: [facility]: [phone] [facility]: [phone] [facility]: [phone] [facility]: [phone] Quit Smoking Action Plan and Resources [facility] offers an eight-week, online smoking cessation plan to all [facility] employees, regardless of whether [place] is your medical insurance provider. Go to [email or web address] and click the Health Risk Assessment and Resources link to get started. In the Iyhzb8Kbnsta menu, click Action Plans instead of Health Risk Assessment to access the Quit Smoking Action Plan. Additional smoking cessation resources are also available to all [facility] employees on the Kosvk5Quzdze web page at [email or web address]. [place] Tobacco Cessation Program If [place] is your medical insurance provider, there are more free resources available to you, including: No copays or deductibles on local tobacco cessation counseling services to help you quit Prescription assistance for tobacco cessation medications to help you quit For details about the tobacco cessation program available to [employer] members, go to www.Clinicient.Ambassador (Search: Tobacco Cessation Program). [place] Tobacco Quit Line 8-566-EHPG-NOW ( ) is a toll-free, telephonic service that helps [place] residents quit smoking and using tobacco. It is staffed by experts who tailor a quit plan for you and provide you with advice. [place] Tobacco Quit Line 4-987-LVQT-NOW ( ) is a toll-free, telephonic service that helps [place] residents quit smoking and using tobacco. It is staffed by experts who tailor a quit plan for you and provide you with advice. Two weeks of nicotine replacement therapy may be provided at no charge, if needed. Additional Resources These national organizations also offer free information and resources to help you quit tobacco: [employer]--www.cancer.org/healthy/stayawayfromtobacco [place] [employer]--www.heart.org (Search: Quit Smoking) Centers for Disease Control and Prevention--www.cdc.gov/tobacco [place] [employer]--www.lungusa.org documented in this encounterDoctors HospitalWikibon [id number] Miscellaneous Notes* Telephone Encounter - Noris Zapata CMA - 06/05/2024 12:04 PM EDT Called patient to remind them to bring their most current copy of their medication list with them to their appt. Patient verbalizes understanding. documented in this encounterDoctors HospitalWikibon [id number] Telephone encounter Note* Telephone Encounter - Noris Zapata CMA - 06/05/2024 12:04 PM EDT Called patient to remind them to bring their most current copy of their medication list with them to their appt. Patient verbalizes understanding. [facility] [email or web address] Instructions* Patient Instructions* Josep Fisher MA - 06/02/2024 3:22 PM EDT Complete labs Increase methotrexate to 7 tablets weekly Change gabapentin to 300 mg at bedtime Recommend decreasing your Lipitor dose to 40 mg Our office does not accept electronic refill requests from pharmacies. If you need refills, please notify our staff at the time of your office visit or by contacting our office via phone or MyChart. documented in this [id number] History of Present illness Narrative* Fidelia Reyes MA - 06/02/2024 3:05 PM EDT RAPID3 Composite Score MDHAQ (0-10): 4 Patient pain VAS (0-10): 7 Patient global assessment VAS (0-10): 5 RAPID3 Total Score: 16 Remission: <3 Low Disease Activity: <6 Moderate Disease Activity: >=6 and <=12 High Disease Activity: >12 Review of Systems CONSTITUTIONAL: Fever no Fatigue yes Abnormal weight loss/gain no HEENT: Change of Vision no Dry eyes yes Painful eye no Dry Mouth yes Mouth sores/lesions no Hair loss no Difficulty swallowing yes Scalp Tenderness no Jaw Pain no Swollen glands no CVS: Chest pain/ discomfort no Palpitations no RESPIRATORY: Shortness of breath no Difficulty breathing no Cough no Edema no : Blood in urine no Painful urination no GI: Change in stool no Black stool no Visible blood in stool no Abdominal pain no Heartburn no NEURO: Convulsions no Headache no Dizziness no Weakness yes Numbness no INTEGUMENTARY: Rash, generalized no Rash, facial no Finger pain with discoloration (Raynaud s)yes Digital ulcers no HEMATOLOGY: Easy bruisability yes PSYCH: Anxiety yes Depression yes Problems with social activities yes Cosigned by Servando Umana MD at 06/02/2024 3:22 PM EDT * Servando Umana MD - 06/02/2024 3:00 PM EDT I had the pleasure of seeing Arian Fritz in FOLLOW UP at [facility] [address] [facility] [id number] for Management of 1. Seropositive rheumatoid [...] body pain. Joint pain swelling and stiffness slightlydecreased but still quite symptomatic tolerating methotrexate and [...] by mouth daily Do not take on theday of methotrexate . 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 Metatarsal joints are slightlytender 10 out of 10. Swelling not obvious Diagnostic Data: External labs February 26/2024, normal CBC normal complete metabolic profile and normal magnesium External lab October 2019, vitamin D level normal at 41, sed rate normal at 19, CRP 0.8, serum kappafree high at 28 External lab [facility] December 10, 2018, sed rate of 54, intact PTH normal at 60, no M protein (urine, 8, PIZZA CHEF 1 fibrillation positive, sed rate 41, uric acid 6.8, rheumatoid factor greater than 650, CCP antibody greater than 250, normal [place] level, negative MONATNA profile, negative dsDNA antibody, In June 2018, elevated C3 at 171, C4 normal at 27, intact PTH elevated slightly at 73, 25-hydroxy vitamin D level normal at 51, serum kappa protein slightly high at 21, normal CPK of 46, negative PMSCL 70 antibody, RNA polymerase 3 antibody negative, TH/T0 antibody negative External lab August 22/2024, CBC within normal complete metabolic profile normal except for albumin of3.8, serum creatinine normal at 0.78 No results found for: TSH , T3FREE , G9GRBWC No results found for: GLUCOSE , BUN [...] 09/02/2024) for Next scheduled follow up. Servando Umana M.D. Rheumatology Ed Lawton, DO;No ref. provider found Note: This dictation was generated using [employer] voice recognition software. Please excuse any grammatical or spelling errors that may have occurred using the system. documented in this [id number] NoteI had the pleasure of seeing Arian Fritz in FOLLOW UP at [facility] [address] [place] [phone] for Management of 1. 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 [...] Insecurity: No Food Insecurity (05/21/2023) Received from [facility] Hunger Screening Within the past 12 months we worried whether our food would run out before we got money to buy more.: Never True Within the past 12 months the food we bought just didn't last and we didn't have money to get more.: Never True ROS- SEE ATTESTED STAFF NOTE Physical (more content not included)...[facility] 05-25-2024 Miscellaneous Notes* Telephone Encounter - Sophie Williamson RN - 05/25/2024 11:40 AM EDT JACQUELINE-05/21/23 CBC/CMP-02/27/24 documented in this encounterUniversity Hospitals [facility]03-09-2025 Telephone encounter Note* Telephone Encounter - Sophie Williamson RN - 05/25/2024 11:40 AM EDT JACQUELINE-05/21/23 CBC/CMP-02/27/24 [facility]11-22-2024 Miscellaneous Notes* Telephone Encounter - Toña Valadez RN - 02/08/2024 12:38 AM EST OV 05/21/23 Needs labs. Ordered back in October. Appears a refill letter was sent via pt [employer] and it states that it has not been read. Single refill routed and refill letter placed in the mail for pt. documented in this encounterUniversity Hospitals [facility] Center11-22-2024 Telephone encounter Note* Telephone Encounter - Toña Valadez RN - 02/08/2024 12:38 AM EST OV 05/21/23 Needs labs. Ordered back in October. Appears a refill letter was sent via pt [employer] and it states that it has not been read. Single refill routed and refill letter placed in the mail for pt. [facility]11-11-2024 Instructions* Patient Instructions* Tameka Cabezas LPN - 01/28/2024 3:11 PM EST Increase methotrexate to 6 tablets weekly Increase gabapentin to 2 tablets nightly Complete labs documented in this [id number] NoteI had the pleasure of seeing Arian Fritz in FOLLOW UP at [facility] [address] [place], [place] [address] [phone] for Management of 1. 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 No cervical or supraclavicular lymphadenopathy. (more content not included)...[facility] [id number] History of Present illness Narrative* Fidelia Reyes MA - 01/28/2024 2:38 PM EST RAPID3 Composite Score MDHAQ (0-10): 6.3 Patient pain VAS (0-10): 7.5 Patient global assessment VAS (0-10): 7 RAPID3 Total Score: 20.8 Remission: <3 Low Disease Activity: <6 Moderate Disease Activity: >=6 and <=12 High Disease Activity: >12 Review of Systems CONSTITUTIONAL: Fever no Fatigue yes Abnormal weight loss/gain no HEENT: Change of Vision no Dry eyes yes Painful eye no Dry Mouth no Mouth sores/lesions no Hair loss yes Difficulty swallowing yes Scalp Tenderness no Jaw Pain no Swollen glands no CVS: Chest pain/ discomfort no Palpitations no RESPIRATORY: Shortness of breath yes Difficulty breathing no Cough no Edema no : Blood in urine no Painful urination no GI: Change in stool no Black stool no Visible blood in stool no Abdominal pain no Heartburn no NEURO: Convulsions no Headache no Dizziness no Weakness yes Numbness no INTEGUMENTARY: Rash, generalized no Rash, facial no Finger pain with discoloration (Raynaud s)yes Digital ulcers no HEMATOLOGY: Easy bruisability yes PSYCH: Anxiety yes Depression yes Problems with social activities yes Cosigned by Servando Umana MD at 01/28/2024 3:01 PM EST * Servando Umana MD - 01/28/2024 2:38 PM EST I had the pleasure of seeing Arian Fritz in FOLLOW UP at [facility] [address] [place], [place] [address] [id number] for Management of 1. Seropositive rheumatoid [...] out of her methotrexate for a long time,she was started on 4 tablets weekly with some improvement in joint pain swelling and stiffness. Butshe is still symptomatic. Tolerating methotrexate without alopecia [...] by mouth daily Do not take on theday of methotrexate . 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 Metatarsal joints are slightly tender 10 out of 10. Swelling has decreased Diagnostic Data: External lab October 2019, vitamin D level normal at 41, sed rate normal at 19, CRP0.8, serum kappa free high at 28 External lab [facility] December 10, 2018, sed rate of 54, intact PTH normal at 60, no M protein (urine, 8, PIZZA CHEF 1 fibrillation positive, sed rate 41, uric [...] at 21, normal CPK of 46, negative PMSCL 70 antibody, RNA polymerase 3 antibody negative, TH/T0 antibody negative External lab August 22/2024, CBC within normal complete metabolic profile normal except for albumin of3.8, serum creatinine normal at 0.78 No results found for: TSH , T3FREE , [id number] No results found for: GLUCOSE , BUN [...] 04/29/2024) for Next scheduled follow up. Servando Umana M.D. Rheumatology Ed Lawton, ;Ed Lawton, Note: This dictation was generated using [employer] voice recognition software. Please excuse any grammatical or spelling errors that may have occurred using the system. documented in this [id number] History of Present illness Narrative* Roger Raza, PhD - 01/01/2024 11:30 AM EDT Images from the original note were not included. Neuropsychology Roger Raza, PhD NEUROPSYCHOLOGICAL EVALUATION Arian Fritz is a 63 y.o. female referred for neuropsychological evaluation to assist with facilitating and informing medical differential diagnosis and clinical decision-making. The following information was obtained during an interview with the patient and daughter, as well as review of available records. PRESENTING PROBLEM: Progressive decline in memory over the past couple years such as forgetting conversations, forgetting what she has said, repeating self, misplacing items from the home, writing everything down, losing train of thought, starts speaking mid-thought, as well as word-finding difficulty. Also prone to delirium when hospitalized. Has experienced several health complications over the past years. No personality or behavior changes. Physically has been experiencing shuffling gait, leaning toward the right, and tremor. The tremors have improved with medication to some extent. Daughter, who is a nurse, is concerned about possible Parkinson's disease. Remains independent in ADLs, housework, finances, me dication (family leaves notes on lids), and driving (mostly restricted to in- town familiar destinations). No exercise. Largely a homebody but does socialize with the neighbor and family. Speaks with friends on the phone regularly. Overall sleeping fairly well but can have disruptive nights. Overall feels well during the day. Pain complaints include rheumatoid arthritis and fibromyalgia. She has also experienced dramatic weightloss of approximately 100 pounds of unknown etiology over a 3-6 month time frame. Slowly regaining some of this weight. Neurological history includes small TIA/CVA 20+ years ago with subsequent vision changes. Family neurological history includes dementia (mother, paternal grandmother, and maternalgrandmother). Psychiatric history includes bipolar type II disorder that fluctuates in severity. This is managed by psychiatry. No history of alcohol/substance abuse. Smokes 8-10 cigarettes/day. Occasionally uses cannabis for sleep. [place] language Urdu. Completed high school education. Retired, previously worked in [employer]. 2018. Lives alone. Has 2 children, unfortunately one of whom has . MEDICAL HISTORY/MEDICATION: MEDICATIONS: Current Outpatient Medications Medication Instructions albuterol HFA 90 mcg/act inhaler 2 puffs, Inhalation amitriptyline (Elavil) 25 MG tablet .COMPLEX apixaban (ELIQUIS) 5 mg aspirin 81 mg, Oral, Daily RT atorvastatin (LIPITOR) 80 mg, Oral, Daily RT empagliflozin (JARDIANCE) 10 mg, Oral, Daily RT folic acid (FOLVITE) 1 mg, Oral, Daily RT furosemide (LASIX) 20 mg gabapentin (NEURONTIN) 100 mg, Oral, Nightly Jardiance 10 MG 1 tablet, Oral, Every morning levothyroxine (SYNTHROID, LEVOXYL) 75 mcg ASSESSMENT: Presented to appointment on time, alert, and Ox3. Rapport easily established. Good eye contact. Socially appropriate during conversation and testing. Hearing adequate for current purposes. Ambulated independently. Purpose for current evaluation explained and patient agreed to participate. Overall appeared to put forth good effort. Vision/Visuoconstruction: Binocular near-point visual acuity 20/20. Visual do full to confrontation. Visuoconstruction 14th %ile. Nonverbal abstract reasoning 38th %ile. Copy of a complex geometric design >16th %ile. Motor/Speed of Processing: Right-handed. Soda Worker strength <1st %ile with right- hand, 3rd %ile with left. Speeded graphomotor transcoding <1st %ile. Attention/Working Memory: Auditory attention/working memory 4th %ile (6 digits forward, 4 digits backward, 2 digits during sequencing). Speeded visual scanning/attention 2nd %ile. Speeded visual divided attention 1st %ile. Speech/Language: Expressive speech fluent and absent of paraphasic errors. Comprehension adequate for current purposes. Single-word reading 58th %ile. Generative naming to phonemic cues 21st %ile, 5th %ile to semantic cues. Confrontation naming 27th %ile. Verbal abstract reasoning 21st %ile. Learning and Memory: Learning of a word list 3rd %ile (4-5-5-6-7), delayed recall 7th %ile. Recognition discriminability 16th %ile. Forced-choice 16/16. Immediate and delayed recall for prose passages 1st %ile. Recognition 26-50th %ile. Immediate and delayed recall for a variety of geometric figures 5th %ile. Recognition 26-50th %ile. Executive Functioning: Novel problem-solving and cognitive flexibility 11-16th %ile, 2/6 categoriescompleted in 64 sorts. Responding absent of significant perseveration. Failed to maintain set x1. Emotional Functioning: Severe depression and moderate anxiety. Denied any thoughts of self-harm. FINDINGS AND RECOMMENDATIONS: CONCLUSIONS: 1. Estimated average pre-morbid intellectual functioning. 2. Preserved visual acuity without signs of visual field cut or neglect. 3. Severely deficient right-hand gross motor function, moderately deficient with left 4. Severe depression and moderate anxiety. OPINION: Current neuropsychological evaluation demonstrates variable cognitive performance impacting learning and memory, attention/working memory, and processing speed. This raises suspicion for Mild Cognitive Impairment (MCI) that is exacerbated by severe depression, moderate anxiety, chronic pain, and a multitude of health complications. RECOMMENDATIONS: Results and recommendations forwarded to treating physician for review during their next appointment. Patient encouraged to contact this office with any additional questions. More aggressive management of the severe depression and moderate anxiety. Improved pain management. Extra caution driving, continue limiting to in-town familiar destinations. Neurology consultation for assessment of possible underlying Parkinson's disease, as per daughter'sexpressed concern. Memory strategies: Regularly and frequently review information that must be remembered. Link new information in as many ways as possible to already known information. This strategy creates several avenues for remembering the information later. Utilize external memory sources such as lists, date books, calendars, and pocket-size recorders forinformation that must be remembered. A smartphone is a useful tool in consolidating all this information into one source. Active listening, such as repeating and summarizing information back to presenter when learning important information for future recall may be beneficial as opposed to simply passive listening. Establish a consistent structured routine. Regular physical activity for stress relief, improved cognitive efficiency, and optimal sleep. Attempt new hobbies and skills, keep learning. Proper nutritional intake, such as Mediterranean-style diet, while paying close attention to food sourcing. Consider neuropsychological re-evaluation in 12-18 months. Thank you for allowing me to participate in the care of this individual. Please contact me with Vicino at [phone]. documented in this encounterTexas County Memorial [id number] History of Present illness Narrative* Roger Raza, PhD - 12/10/2023 4:30 PM EDT Images from the original note were not included. Roger Raza, PhD NEUROBEHAVIORAL STATUS EXAMINATION Arian Fritz is a 63 y.o. female referred for neuropsychological evaluation to assist with facilitating and informing medical differential diagnosis and clinical decision-making. The following information was obtained during an interview with the patient and daughter, as well as review of available records. PRESENTING PROBLEM AND HISTORY Progressive decline in memory over the past couple years such as forgetting conversations, forgetting what she has said, repeating self, misplacing items from the home, requiring to write everything down, losing train of thought, starts speaking mid-thought, as well as word-finding difficulty. [place]soprone to delirium when hospitalized. Has experienced several health complications over the past years. No personality or behavior changes. Physically has been experiencing shuffling gait, leaning toward the right, and tremor. The tremors have improved with medication to some extent. Daughter, who is a nurse, is concerned about possible Parkinson's disease. Remains independent in ADLs, housework, finances, medication (family leaves notes on lids), and driving (mostly restricted to in-town familydestinations). No exercise. Largely a homebody but does socialize with the neighbor and family. Speaks with friends on the phone regularly. Overall sleeping fairly well but can have disruptive nights. Overall feels well during the day. Pain complaints include rheumatoid arthritis and fibromyalgia. She has also experienced dramatic weightloss of approximately 100 pounds of unknown etiology over a 3-6 month time frame. Slowly regaining some of this weight. Neurological history includes small TIA/CVA 20+ years ago with subsequent vision changes. Family neurological history includes dementia (mother, paternal grandmother, and maternalgrandmother). Psychiatric history includes bipolar type II disorder that fluctuates in severity. This is managed by psychiatry. No history of alcohol/substance abuse. Smokes 8-10 cigarettes/day. Occasionally uses cannabis for sleep. [place] language Urdu. Completed high school education. Retired, previously worked in [employer]. 2017. Lives alone. Has 2 children, unfortunately one of whom has . MEDICAL HISTORY/MEDICATION: Past Medical History: Diagnosis Date Acute confusion 09/12/2018 General weakness 09/12/2018 High cholesterol ([facility]) Hypertension ([facility]) Metabolic encephalopathy 09/12/2018 Stroke ([facility]) 03/19/2001 Tremor 09/12/2018 MEDICATIONS: Current Outpatient Medications Medication Instructions albuterol HFA 90 mcg/act inhaler 2 puffs, Inhalation amitriptyline (Elavil) 25 MG tablet .COMPLEX apixaban (ELIQUIS) 5 mg aspirin 81 mg, Oral, Daily RT atorvastatin (LIPITOR) 80 mg, Oral, Daily RT empagliflozin (JARDIANCE) 10 mg, Oral, Daily RT folic acid (FOLVITE) 1 mg, Oral, Daily RT furosemide (LASIX) 20 mg gabapentin (NEURONTIN) 100 mg, Oral, Nightly Jardiance 10 MG 1 tablet, Oral, Every morning levothyroxine (SYNTHROID, LEVOXYL) 75 mcg INITIAL IMPRESSION AND PLAN: Memory loss, word-finding difficulty, parkinsonisms, history of TIA, and chronic pain: The patient will be scheduled for neuropsychological assessment, which will include tests for memory, reasoning, language, problem-solving, attention, and mood. Thank you for allowing me to participate in the care of this individual. Please contact me with anyquestions at [phone]. documented in this encounterTexas County Memorial [id number] NoteI had the pleasure of seeing Arian Fritz in consultation at [facility] [address] [place] [id number] for evaluation of rheumatoid arthritis Ed Lawton, ;Ed Lawton, HISTORY OF PRESENT ILLNESS: Arian Fritz is a 63 y.o. female who presents to establish rheumatologic care. She is accompanied by her daughter Beka who is my patient as well. A lot of information is volunteered by Beka as Ms. Chau has difficulty remembering. 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 (more content not included)...[facility]08-24-2024 Miscellaneous Notes* Telephone Encounter - Thi Roman RN - 11/10/2023 3:49 PM EDT OV 05/21/23 CBC and CMP 01/23/23 documented in this encounterUniversity Hospitals [facility]08-24-2024 Telephone encounter Note* Telephone Encounter - Thi Roman RN - 11/10/2023 3:49 PM EDT OV 05/21/23 CBC and CMP 01/23/23 [facility] Car reviews [id number] Evaluation note* Author Robson Robins [facility] Authored October 17, 2023 3:41 pm Patient is positive for occa sional dyspepsia, intermittent dysphagia, patient has been maintaining her weight at this point. [facility] Work Phone: [phone]) 114-461507-27-2024 Miscellaneous Notes* Telephone Encounter - Franck Will LPN - 10/13/2023 2:37 PM EDT Jacqueline 05/21/23 Cmp 01/23/23 documented in this encounterUniversity Hospitals Ely[facility]07-27-2024 Telephone encounter Note* Telephone Encounter - Franck Will LPN - 10/13/2023 2:37 PM EDT Jacqueline 05/21/23 Cmp 01/23/23 [facility]06-28-2024 Instructions* Patient Instructions* Oneida Alegre - 09/14/2023 4:02 PM EDT RTC PRN documented in this encounterSelect [facility]06-28-2024 History of Present illness Narrative* Neville Yee MD - 09/14/2023 3:45 PM EDT Images from the original note were not included. NAME: Arian Fritz CLINIC NO.: [id number] DATE OF SERVICE: September 14, 2023 ([facility]) [...] Date Anemia Anxiety state Asthma Atherosclerosis of [place] coronary artery of [place] heart with angina pectoris (HCC) Atrial fibrillation [...] which included preparing to see the patient, [id number] patient care, completing clinical documentation, obtaining and/or reviewing separately obtained history, performing a medically appropriate examination, counseling and educating the pat ient/family/caregiver, ordering medications, tests, or procedures, communicating with other HCPs (not separately reported), independently interpreting results (not separately reported), communicatingresults to the patient/family/caregiver, and care coordination (not separately reported). Neville Yee MD, CPE Hematology and Oncology Services Provided at: [place], [place] Scribe Attestation: This note was scribed [...] and under my direction. CC: SELF Ed Tejeda Jered, DO [address] [place] [address] documented in this encounterSelect Medical Specialty [facility]06-28-2024 NoteHNO ID: [id number] Author: NEVILLE YEE MD Service: ? Author Type: Physician Type: Progress Notes Filed: 09/14/2023 18:27 Note Text: NAME: Arian Fritz [facility] NO.: [id number] DATE OF SERVICE: September 14, 2023 (Kirit) [...] review of organ systems. (more content not included)...[facility] 09-10-2023 History of Present illness Narrative* Michel Anderson, NELY - 09/10/2023 1:30 PM EDT Radiology Service Progress Note DATE OF SERVICE: [...] Value Ref Range Status 08/23/2023 85 >=60 mL/min/1.73m Final Comment: Estimated Glomerular Filtration Rate (eGFR) is calculated using the 2020 CKD-EPI creatinine equation. This equation utilizes serum creatinine, sex, and age as parameters. The creatinine assay has traceable calibration to isotope dilution- mass spectrometry. Refer to KDIGO guidelines for clinical interpretation. In patients with unstable renal function, e.g. those with acute kidney injury, the eGFRmay not accurately reflect actual GFR. eGFR- Date Value Ref Range Status 12/10/2018 >60 Final P.O.C.T. RESULTS: N/A September 10, 2023 TREATMENT: N/A IV SITE: Ambulatory: A peripheral IV was started in the Right hand with a Angio cath: 22 gauge. IV SITE APPEARANCE: Clean,Dry and Intact SIGNATURE: Michel Anderson RN PATIENT NAME: Arian Fritz DATE: September 10, 2023 TIME: 1:35 PM * Daylin Rossi RT(R) - 09/10/2023 1:30 PM EDT RADIOLOGY SERVICE PROGRESS NOTE SERVICE DATE: 09/10/2023 SERVICE TIME: 2:23 PM PATIENT IDENTITY VERIFICATION COMPLETED USING TWO (2) STANDARD IDENTIFIERS: Name and Date of confirmed by patient verbally POST EXAM PIV STATUS: Discontinued PROCEDURE TYPE: NM INJECT: PET/CT BODY SCAN. 6.4 mCi F18 FDG. No other medications given.. ADMINISTRATION TIME: 1342 PATIENT DISCHARGED TO: Ambulatory patient, left [place] department area. A Diagnostic radioactive procedure has taken place, with no further precautions necessary other than routine body substance precautions. More information regarding radiation safety can be found usingthis link: [email or web address] SIGNATURE: RT Ivelisse(R) PATIENT NAME: Arian Fritz DATE: September 10, 2023 TIME: 2:23 PM PAGER/CONTACT #: documented in this encounterSelect Medical Specialty [facility]06-24-2024 NoteHNO ID: [id number] Author: DAYLIN ROSSI RT(R) Service: ? Author Type: Technologist Type: [...] 1342 PATIENT DISCHARGED TO: Ambulatory patient, left [place] department area. A Diagnostic radioactive procedure has taken place, with no further precautions necessary other than routine body substance precautions. More information regarding radiation safety can be found using this link: [email or web address] SIGNATURE: MELANIA Oviedo) PATIENT NAME: Arian Fritz DATE: September 10, 2023 TIME: 2:23 PM PAGER/CONTACT #:[facility]06-24-2024 NoteHNO ID: [id number] Author: MICHEL ANDERSON RN Service: ? Author [...] Fritz DATE: September 10, 2023 TIME: 1:35 [facility]06-20-2024 Telephone encounter Note* Telephone Encounter - Noris Hernandez RN - 09/06/2023 9:13 AM EDT Left message on that Dr. Santana agreeable with plan. Informed her to call back with further questions. Left phone number to CB. Noris Hernandez RN [facility]06-20-2024 Miscellaneous Notes* Telephone Encounter - Noris Hernandez [...] Max: Please advise Maicol documented in this encounterSelect Medical Special[facility]06-20-2024 Telephone encounter Note * Telephone Encounter - Neville Yee MD - 09/06/2023 8:31 AM EDT Agree thanks [facility]06-19-2024 Telephone encounter Note* Telephone Encounter - Maicol Mcqueen RN - 09/05/2023 2:14 PM EDT pt having colonoscopy/EGD 09/17/23. Pt needs to hold Eliquis and Jardiance for 4 days prior. Max: Please advise Maicol [facility]06-06-2024 Instructions* Patient Instructions* Oneida Alegre - 08/23/2023 4:30 PM EDT PET/CT when approved RTC after to review scan and today's labs documented in this encounterSelect Medical Specialty [facility]06-06-2024 History of Present illness Narrative* Neville Yee MD - 08/23/2023 4:00 PM EDT Images from the original note were not included. NAME: Arian Fritz CLINIC NO.: [id number] DATE OF SERVICE: August 23, 2023 (Kirit) [...] Date Anemia Anxiety state Asthma Atherosclerosis of [place] coronary artery of [place] heart with angina pectoris (HCC) Atrial fibrillation [...] which included preparing to see the patient, [id number] patient care, completing clinical documentation, obtaining and/or reviewing separately obtained history, performing a medically appropriate examination, counseling and educating the pat ient/family/caregiver, ordering medications, tests, or procedures, communicating with other HCPs (not separately reported), independently interpreting results (not separately reported), communicatingresults to the patient/family/caregiver, and care coordination (not separately reported). Neville Yee MD, CPE Hematology and Oncology Services Provided at: [facility], [place], [place] Scribe Attestation: This note was scribed [...] my direction. CC: SELF Ed Lawton, DO [address] [facility] [address] [facility] [address] documented in this encounter[facility] NoteHNO ID: [id number] Author: NEVILLE YEE MD Service: ? Author Type: Physician Type: Progress Notes Filed: 08/25/2023 15:06 Note Text: NAME: Arian Fritz NO.: [id number] DATE OF SERVICE: August 23, 2023 (Kirit) [...] respiring comfortably. Neurologic: Nonfo (more content not included)...[facility] 05-21-2023 History of Present illness Narrative* Geno River MD - 05/21/2023 1:15 PM EST Arianmadison Fritz Date of visit: 05/21/2023 Date of : 1960 Age: 63 y.o. Patient Active Problem List Diagnosis Hypothyroidism Hypertension Osteoporosis Asthma GERD (gastroesophageal reflux disease) Hyperlipidemia Dysphasia Anxiety COPD (chronic obstructive pulmonary disease) ([facility]) Paroxysmal atrial fibrillation ([facility]) Anemia Leg edema Elevated brain natriuretic peptide (BNP) level Rheumatoid arthritis of hand ([facility]) Ischemic cardiomyopathy Coronary artery disease involving [place] coronary artery of [place] heart Allergies Allergen Reactions Prochlorperazine Other (See [...] Past Medical History: Diagnosis Date Atrial fibrillation ([facility]) COPD (chronic obstructive pulmonary disease) ([facility] Coronary artery disease Hypertension Stroke ([facility]) No data recorded No data recorded No [...] POCT EKG 2. Coronary artery disease involving [place] coronary artery of [place] heart, unspecified whether angina present - POCT [...] about 1 year (around 05/20/2024). PCP: Ed Lwaton DO Referring Physician: Ed Lawton DO [address] [place] [address] documented in this encounterUniversity Hospitals [facility]03-04-2024 Instructions* Patient Instructions* Noris Zapata, [facility] - 05/21/2023 1:15 PM EST Are You Ready To Kick The Habit? Free Tobacco Cessation Resources [facility] Services [facility] Centers provide all employees with free tobacco cessation services that include: Counseling to understand nicotine addiction Education about medications that can help you successfully quit Assistance with developing a plan to quit Call to set up an individual appointment or find out when group classes will be held: Ermias bernard [facility]: [phone] [facility]: [phone] [facility]: [phone] [facility]: [phone] Quit Smoking Action Plan and Resources [facility] offers an eight-week, online smoking cessation plan to all [facility] employees, regardless of whether [place] is your medical insurance provider. Go to [email or web address]/employeewellness and click the Health Risk Assessment and Resources link to get started. In the Oqifb5Fwuveh menu, click Action Plans instead of Health Risk Assessment to access the Quit Smoking Action Plan. Additional smoking cessation resources are also available to all [facility] employees on the Mkbiy7Tlbrvg web page at [email or web address]. [place] Tobacco Cessation Program If [place] is your medical insurance provider, there are more free resources available to you, including: No copays or deductibles on local tobacco cessation counseling services to help you quit Prescription assistance for tobacco cessation medications to help you quit For details about the tobacco cessation program available to [place] members, go to [email or web address] (Search: Tobacco Cessation Program). [place] Tobacco Quit Line 9-976-DNBF-NOW ( ) is a toll-free, telephonic service that helps [place] residents quit smoking and using tobacco. It is staffed by experts who tailor a quit plan for you and provide you with advice. [place] Tobacco Quit Line 8-403-RSVH-NOW ( ) is a toll-free, telephonic service that helps [place] residents quit smoking and using tobacco. It is staffed by experts who tailor a quit plan for you and provide you with advice. Two weeks of nicotine replacement therapy may be provided at no charge, if needed. Additional Resources These national organizations also offer free information and resources to help you quit tobacco: [place] [employer]--www.cancer.org/healthy/stayawayfromtobacco [place] Heart [employer]--www.heart.org (Search: Quit Smoking) Centers for Disease Control and Prevention--www.cdc.gov/tobacco [place] Lung [employer]--www.lungusa.org documented in this encounterUniversity Hospitals E[facility]03-01-2024 Miscellaneous Notes* Telephone Encounter - Noris Zapata CMA - 05/18/2023 10:06 AM EST Called patient to remind them to bring their most current copy of their medication list with them to their appt. Patient verbalizes understanding. documented in this [facility] [id number] Telephone encounter Note* Telephone Encounter - Noris Zapata CMA - 05/18/2023 10:06 AM EST Called patient to remind them to bring their most current copy of their medication list with them to their appt. Patient verbalizes understanding. @Pay11-17-2023 Evaluation note* Encounter Date Diagnosis Assessment Notes Treatment Notes Treatment Clinical Notes Jan, BMI 38.0-38.9,adult (ICD-10 - Z68.38) Jan, Chronic obstructive pulmonary disease, unspecified COPD type (ICD-10 - J44.9) Jan, Rheumatoid arthritis of hand, unspecified laterality, unspecified rheumatoid factor presence (ICD-10 - M06.9) [employer] Other 11-01-2023 Evaluation note* Encounter Date Diagnosis [...] are low and contributing to her fatigue. [employer] Other 05-31-2023 Evaluation note* Encounter Date Diagnosis [...] systolic congestive heart failure (ICD-10 - I50.23) [employer] Other 05-10-2023 Evaluation note* Encounter Date Diagnosis [...] R11.0) July, Stomach pain (ICD-10 - R10.9) [employer] Other 03-21-2023 Evaluation note* Encounter Date Diagnosis Assessment Notes Treatment Notes Treatment Clinical Notes May, Acute on chronic systolic congestive heart failure (ICD-10 - I50.23) May, Essential hypertension (ICD-10 - I10) May, Acquired hypothyroidism (ICD-10 - E03.9) May, Medication monitorin g encounter (ICD-10 - Z51.81) May, Encounter for screening for cardiovascular disorders (ICD-10 - Z13.6) [employer] Other 12-28-2022 Evaluation note* Encounter Date Diagnosis [...] Patient acknowledges understanding and agrees to treatment. [employer] Other 11-09-2022 Evaluation note* Encounter Date Diagnosis [...] and follow with cardiology for this issue. [employer] Other 05-09-2022 Evaluation note* Encounter Date Diagnosis [...] this decsion and will refer to new shank sorter for further evaluauton and continued care. Her [...] exam. July, Acquired hypothyroidism (ICD-10 - E03.9) [employer] Other 03-21-2022 Evaluation note* Encounter Date Diagnosis Assessment Notes Treatment Notes Treatment Clinical Notes May, Acquired hypothyroidism (ICD-10 - E03.9) [employer] Other Evaluation noteNort [employer] Other Evaluation noteNo InformationNort [employer] Other Evaluation noteNo assessment information available [facility] Work Phone: evaluation note* Diagnosis Onset Date Resolution Status Cyclic vomiting syndrome acu te Hypothyroidism acute Weakness acute Anxiety chronic Medication monitoring encounter noneactive Dyspnea noneactive Weight loss noneactive [facility] Work Phone: evaluation note* Diagnosis Onset Date Resolution Status [id number] acute Anxiety chronic ASHD (arteriosclerotic heart disease) chronic Bipolar II disorder chronic Chronic atrial fibrillation chronic Chronic fatigue chronic Chronic obstructive pulmonary disease (COPD) chronic Chronic systolic congestive heart failure chronic Cigarette nicotine dependence without complication chronic Essential hypertension chron ic GERD (gastroesophageal reflux disease) chronic Hyperlipidemia chronic Hypokalemia chronic Hypothyroidism chronic Osteoporosis chronic Pharyngeal dysphagia chronic Rheumatoid arthritis chronic [id number] chronic Transaminitis chronic Well adult noneactive [facility] Work Phone: Evaluation note* Diagnosis 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)- Primary Abnormal weight loss Loss of weight Diffuse large B-cell lymphoma of solid organ excluding spleen (HCC) Bipolar II disorder (HCC) Other bipolar disorders documented in this encounter [facility]* Diagnosis 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)- Primary Abnormal weight loss Loss of weight documented in this encounter [facility]* Author Robson Robins [facility] Authored October 17, 2023 3:41 pm Patient is positive for occa sional dyspepsia, intermittent dysphagia, patient has been maintaining her weight at this point. [facility] Work Phone: Evaluation note* Diagnosis Diffuse large B-cell lymphoma of solid organ excluding spleen (HCC) documented in this encounter [facility]* Diagnosis Mild neurocognitive disorder- Primary Word finding difficulty History of TIA (transient ischemic attack) Other chronic pain documented in this encounter [facility] note* Diagnosis Seropositive rheumatoid arthritis of multiple joints (HCC)- Primary Fibromyalgia Unspecified myalgia and myositis Abnormal weight loss Loss of weight History of non-Hodgkin's lymphoma Personal history of other lymphatic and hematopoietic neoplasm Encounter for long-term (current) use of high-risk medication Encounter for long-term (current) use of other medications Encounter for screening for other viral diseases [facility] Diagnosis Memory loss- Primary Confusion Unspecified psychosis Tremor Abnormal involuntary movements Shuffling gait Abnormality of gait Word finding difficulty History of TIA (transient ischemic attack) Other chronic pain documented in this encounter [facility] HealthcareEvaluation note* Diagnosis Essential hypertension, benign- Primary documented in this encounter [facility]* Diagnosis Paroxysmal atrial fibrillation (CMS-HCC)- Primary Atrial fibrillation Coronary artery disease involving [place] coronary artery of [place] heart, unspecified whether angina present Primary hypertension Unspecified essential hypertension Ischemic cardiomyopathy Other specified forms of chronic ischemic heart disease Hyperlipidemia, unspecified hyperlipidemia type documented in this encounter [facility]* Diagnosis Paroxysmal atrial fibrillation (CMS-HCC)- Primary Atrial fibrillation Coronary artery disease involving [place] coronary artery of [place] heart, unspecified whether angina present Ischemic cardiomyopathy Other specified forms of chronic ischemic heart disease Primary hypertension Unspecified essential hypertension Chronic obstructive pulmonary disease, unspecified COPD type (CMS-HCC) Longstanding persistent atrial fibrillation (CMS-HCC) Essential hypertension, benign documented in this encounter [facility]* Diagnosis Paroxysmal atrial fibrillation (CMS-HCC)- Primary Atrial fibrillation Coronary artery disease involving [place] coronary artery of [place] heart, unspecified whether angina present Ischemic cardiomyopathy Other specified forms of chronic ischemic heart disease Primary hypertension Unspecified essential hypertension Chronic obstructive pulmonary disease, unspecified COPD type (CMS-HCC) Longstanding persistent atrial fibrillation (CMS-HCC) Hyperlipidemia, unspecified hyperlipidemia type- Primary [facility]* Diagnosis Seropositive rheumatoid arthritis of multiple joints (HCC)- Primary Fibromyalgia Unspecified myalgia and myositis Abnormal weight loss Loss of weight History of non-Hodgkin's lymphoma Personal history of other lymphatic and hematopoietic neoplasm Encounter for long-term (current) use of high-risk medication Encounter for long-term (current) use of other medications Encounter for screening for other viral diseases Myalgia Unspecified myalgia and myositis [facility]* Diagnosis Paroxysmal atrial fibrillation (CMS-HCC)- Primary Atrial fibrillation Coronary artery disease involving [place] coronary artery of [place] heart, unspecified whether angina present Ischemic cardiomyopathy Other specified forms of chronic ischemic heart disease Primary hypertension Unspecified essential hypertension Chronic obstructive pulmonary disease, unspecified COPD type (CMS-HCC) Longstanding persistent atrial fibrillation (CMS-HCC) Paroxysmal atrial fibrillation (CMS-HCC)- Primary Atrial fibrillation Coronary artery disease involving [place] coronary artery of [place] heart, unspecified whether angina present Ischemic cardiomyopathy Other specified forms of chronic ischemic heart disease Longstanding persistent atrial fibrillation (CMS-HCC) documented in this encounter [facility]* Diagnosis Rheumatoid arthritis, involving unspecified site, unspecified whether rheumatoid factor present (HCC)- Primary [facility]* Diagnosis Rheumatoid arthritis, involving unspecified site, unspecified whether rheumatoid factor present (HCC)- Primary [facility]* Diagnosis Onset Date Resolution Status Admit Date Coronary artery disease involving [place] artery of transplanted heart witho acute July 2:02pm Iron deficiency anemia, unspecified acute July 31, 2024 2 :02pm Anxiety chronic July 31, 2024 2:02pm ASHD (arteriosclerotic heart disease) chronic July 31, 2024 2 :02pm Barretts esophagus chronic July 312024 2:02pm Bipolar II disorder chronic July 172024 2:02pm Chronic atrial fibrillation chronic July 31, 2024 2:02pm Chronic fatigue chronic July 31, 2024 2:02pm Chronic obstructive pulmonar y disease (COPD) chronic July 31, 2024 2 :02pm Chronic systolic congestive heart failure chronic July 31, 2024 2 :02pm Cigarette nicotine dependenc e without complication chronic July 31, 025 2:02pm Essential hypertension chronic Ma 2024 2:02pm GERD (gastroesophageal reflu x disease) chronic July 31, 2024 2 :02pm Hyperlipidemia chronic July 31, 2024 2:02pm Hypothyroidism chronic July 31, 2024 2:02pm Mild cognitive impairment chronic July 31, 2024 2:02pm Osteoporosis chronic July 31 2:02pm Pharyngeal dysphagia chronic July 31, 2024 2:02pm Rheumatoid arthritis chronic July 31, 2024 2:02pm 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 ( chronic July 31, 2024 2:02pm Well adult exam noneactive July 31, 2024 2:02pm [facility] Work Phone: Evaluation note* Diagnosis Paroxysmal atrial fibrillation ([facility] Primary Atrial fibrillation Coronary artery disease involving [place] coronary artery of [place] heart, unspecified whether angina present Ischemic cardiomyopathy Other specified forms of chronic ischemic heart disease Primary hypertension Unspecified essential hypertension Chronic obstructive pulmonary disease, unspecified COPD type (CMS-HCC) Longstanding persistent atrial fibrillation (CMS-HCC) Paroxysmal atrial fibrillation ([facility])- Primary Atrial fibrillation Primary hypertension Unspecified essential hypertension documented in this encounter [facility]* Diagnosis Seropositive rheumatoid arthritis of multiple joints (HCC)- Primary Fibromyalgia Unspecified myalgia and myositis Abnormal weight loss Loss of weight History of non-Hodgkin's lymphoma Personal history of other lymphatic and hematopoietic neoplasm Encounter for long-term (current) use of high-risk medication Encounter for long-term (current) use of other medications [facility]* Diagnosis Seropositive rheumatoid arthritis of multiple joints (HCC)- Primary Fibromyalgia Unspecified myalgia and myositis Abnormal weight loss Loss of weight Encounter for long-term (current) use of high-risk medication Encounter for long-term (current) use of other medications documented [facility]* Diagnosis Onset Date Resolution Status Admit Date Mild cognitive impairment chronic November 20, 2024 2:08pm Balance disorder noneactive 2024 2:08pm [facility] Work Phone: History general Narrative - [facility] Other History general Narrative - Reported* Type Description Date Medical History hypothyroidism Medical History HTN Medical History osteoporosis Medical History asthma Medical History GERD Medical History hyperlipdemia Medical History dysphagia Medical History rheumatoid arthritis Medical History anxiety Medical History copd Medical History A-FIB Surgical History BRONCHIAL CLEFT REPAIR 1976 Hospitalization History Child x2 Hospitalization History Sepsis/Rhabdo 08/2018 [employer] Other History general Narrative - Reported* Type Description Date Medical History hypothyroidism Medical History HTN Medical History osteoporosis Medical History asthma Medical History GERD Medical History hyperlipdemia Medical History dysphagia Medical History rheumatoid arthritis Medical History anxiety Medical History copd Medical History A-FIB Surgical History BRONCHIAL CLEFT REPAIR 1976 Hospitalization History Child x2 Hospitalization History Sepsis/Rhabdo 08/2018 Hospitalization History Heart failure 05/2021 [employer] Other Hospital Discharge instructionsAmbulatory Orders* Disability Placard Time Frame: 11/14/23, Location: Determined By Patient [facility] Work Phone: InstructionsNot on filedocumented in this encounter [facility] filedocumented in this encounter [facility] SystemInstructionsNot on filedocumented in this encounter [facility] SystemInstructionsNot on filedocumented in this encounter [facility]InstructionsNot on filedocumented in this encounter [facility] SystemInstructionsNot on filedocumented in this encounter [facility] SystemInstructionsNot on filedocumented in this encounter [facility] SystemInstructionsNot on filedocumented in this encounter [facility] SystemInstructionsNot on filedocumented in this encounter [facility] SystemInstructionsNot on filedocumented in this encounter [facility] SystemReason for referral (narrative)* Diagnostic Procedure Only (Routine) - Authorized Specialty Diagnoses / Procedures Referred By Ramiro t Referred To Contact MOLECULAR & FUNCTIONAL IMAGING Diagnoses Diffuse large B-cell lymphoma of solid organ excluding spleen (HCC) Procedures NM PET/CT SKULL-THIGH INITIAL PET IMAGING CT ATTENUATION SKULL BASE MID-THIGH Neville Yee MD [address] [place] [address] [place] [address] Molecular & Functional Imaging [address] [place] [address] Referral ID Status Reason Start Date Expiration Date Visits Requested Visits Authorized [id number] Authorized Auto-Generat ed Referral 08/23/2023 09/21/2024 1 1 [facility] for referral (narrative)* Diagnostic Procedure Only (Routine) - Closed Specialty Diagnoses / Procedures Referred By Contnikki t Referred To Contact MOLECULAR & FUNCTIONAL IMAGING Diagnoses Diffuse large B-cell lymphoma of solid organ excluding spleen (HCC) Procedures NM PET/CT SKULL-THIGH INITIAL PET IMAGING CT ATTENUATION SKULL BASE MID-THIGH Neville Yee MD [address] [place] [address] [place] [address] Molecular & Functional Imaging [address] [place] [address] Referral ID Status Reason Start Date Expiration Date V isits Requested Visits Authorized [id number] Closed Auto-Generate d Referral 08/23/2023 09/21/2024 1 1 [facility] for referral (narrative)No reason for referral information [facility] Work Phone: Summary Purpose Family History No Family History [...] disease Unknown mother Hypothyroidism Unknown Advance Directives No Advanced Directives Records Found Advance Directive Response Recorded Date/ Time Advance Directives Yes September 10 1:10pm Advance Directive Response Recorded Date/ Time Advance Directives Yes September 10 2:10pm Procedure Findings Note Pre-procedure Verification a nd Time Out: Pre-Procedure Verification and Time Out: Procedure Locationprocedure area [facility] - Pre-procedure Verificationcompleted TIME OUT - Final Verificationcompleted DEBRIEFcompleted General Information: Post-Procedure Diagnosis: Atrial Fibrillation, Atypical Atrial Flutter Procedure Name: Atrial Fibrillation and Atypical Atrial Flutter Ablation Findings: See Below Procedure performed by: Dr. Jonathan [place] City Jailer(s): Dr. Ben Joya Estimated Blood Loss (mL): 10 Specimen: no [...] atrial fibrillation status post radiofrequency ablation at [facility] with recurrent atrial fibrillation, presently on sotalol [...] Alvarado RN prior to discharge. To Dr. Matry Lynn MD for review.* ARIAN FRITZ is being seen for follow-up of a hospitalization for. # week/ [facility] [place] * Patient is in the office [...] atrial fibrillation status post radiofrequency ablation at [facility], patient relapsed while she was on sotalol [...] follow-up of a hospitalization for. # week/ [facility] [place] * Patient is in the office [...] atrial fibrillation status post radiofrequency ablation at [facility], patient relapsed while she was on sotalol [...] and possible introduction of Aldactone. * ARIAN LAM is being seen for follow-up of a hospitalization for. # week/ [facility] [place] * Patient is in the office [...] atrial fibrillation status post radiofrequency ablation at [facility], patient relapsed while she was on sotalol [...] unspecified rheumatoid factor presence (M06.9) Referral Organization [facility] Family Haris Scott Referring Provider First Name Ed Referring Provider Last Name Jered Referring Provider Specialty Family Prac ashley Referred Organization [facility] Referred Address [address] [facility] [place] Referred Provider Specialty Rheumatology Referral Priority Routine Reason [facility] [place] Diagnosis 1 Acute on chronic sys tolic congestive heart failure (I50.23) Diagnosis 2 Paroxysmal atrial fi brillation (I48.0) Diagnosis 3 Coronary artery dise ase involving [place] coronary artery of [place] heart without angina pectoris (I25.10) Referral Organization [facility] Haris Scott Referring Provider First Name Ed Referring Provider Last Name Jered Referring Provider Specialty Family Prac ashley Referred Organization [facility] Referred Address [address] [facility],[place],[address] Referred Provider Specialty Cardiology Referral Priority Routine General Notes SalvadorSophie harvey Dominique 12/2021 08:21:44 AM > referral received waiting for notes to be locked Clinical Notes P- [phone] Chief Complaint and Reason for Visit Chief Complaint R30.0 Chief Complaint Z12.31 Chief Complaint Not feeling well Reason for Visit Cyclic vomiting synd wicho Hypothyroidism Weakness Anxiety Medication monitoring encounter Dyspnea Weight loss Chief Complaint [facility] SAWV Reason for Visit [id number] Anxiety ASHD (arteriosclerotic heart disease) Bipolar II disorder Chronic atrial fibrillation Chronic fatigue Chronic obstructive pulmonary disease (COPD) Chronic systolic congestive heart failure Cigarette nicotine dependence without complication Essential hypertension GERD (gastroesophageal reflux disease) Hyperlipidemia Hypokalemia Hypothyroidism Osteoporosis Pharyngeal dysphagia Rheumatoid arthritis [id number] Transaminitis Well adult Chief Complaint SAWV R13.13 e03.9 e78.2 z51.81 e78.2 z51.81 Reason for Visit [id number] Anxiety ASHD (arteriosclerotic heart disease) Bipolar II disorder Chronic atrial fibrillation Chronic fatigue Chronic obstructive pulmonary disease (COPD) Chronic systolic congestive heart failure Cigarette nicotine dependence without complication Essential hypertension GERD (gastroesophageal reflux disease) Hyperlipidemia Hypokalemia Hypothyroidism Osteoporosis Pharyngeal dysphagia Rheumatoid arthritis [id number] Transaminitis Well adult Chief Complaint SAW R13.13 e03.9 e78.2 z51.81 e78.2 z51.81 M81.0 Reason for Visit [id number] Anxiety ASHD (arteriosclerotic heart disease) Bipolar II disorder Chronic atrial fibrillation Chronic fatigue Chronic obstructive pulmonary disease (COPD) Chronic systolic congestive heart failure Cigarette nicotine dependence without complication Essential hypertension GERD (gastroesophageal reflux disease) Hyperlipidemia Hypokalemia Hypothyroidism Osteoporosis Pharyngeal dysphagia Rheumatoid arthritis [id number] Transaminitis Well adult Chief Complaint SAWV R13.13 e03.9 e78.2 z51.81 e78.2 z51.81 M81.0 BH Hx of colon polyps, Dysphagia Hx of colon polyps, Dysphagia Amb Documentation Amb Documentation discuss Blackman's Reason for Visit [id number] Anxiety ASHD (arteriosclerotic heart disease) Bipolar II disorder Chronic atrial fibrillation Chronic fatigue Chronic obstructive pulmonary disease (COPD) Chronic systolic congestive heart failure Cigarette nicotine dependence without complication Essential hypertension GERD (gastroesophageal reflux disease) Hyperlipidemia Hypokalemia Hypothyroidism Osteoporosis Pharyngeal dysphagia Rheumatoid arthritis [id number] Transaminitis Well adult Barretts esophagus GERD (gastroesophageal reflux disease) Chief Complaint M81.0 Hx of colon polyps, Dysphagia Hx of colon polyps, Dysphagia Amb Documentation Amb Documentation discuss Blackman's 3 month follow up Reason for Visit Barretts esophagus GERD (gastroesophageal reflux disease) Barretts esophagus Essential hypertension GERD (gastroesophageal reflux disease) Hypothyroidism Rheumatoid arthritis Memory impairment Chief Complaint Hx of colon polyps, Dysphagia Hx of colon polyps, Dysphagia Amb Documentation Amb Documentation discuss Blackman's 3 month follow up 8 week follow up Reason for Visit Barretts esophagus GERD (gastroesophageal reflux disease) Barretts esophagus Essential hypertension GERD (gastroesophageal reflux disease) Hypothyroidism Rheumatoid arthritis Memory impairment Barretts esophagus Chief Complaint discuss Blackman's 3 month follow up 8 week follow up go over neuropsych. eval. Reason for Visit Barretts esophagus GERD (gastroesophageal reflux disease) Barretts esophagus Essential hypertension GERD (gastroesophageal reflux disease) Hypothyroidism Rheumatoid arthritis Memory impairment Dysphagia Barretts esophagus GERD (gastroesophageal reflux disease) Anxiety Bipolar II disorder Mild cognitive impairment Chief Complaint Admit Date July 15, 2024 1:0 8pm Amb Documentation July 30, 2024 9:47a m High Risk Medicare AWV Subsequent July 312024 2:02pm Reason for Visit Admit Date Coronary artery disease invo lving [place] artery of transplanted heart witho July 31, 2024 2:02pm Iron deficiency anemia, unspecified July 31, 2024 2:02pm Anxiety July 31, 2024 2:02p m ASHD (arteriosclerotic heart disease) Ma y 2024 2:02pm Barretts esophagus July 31, 2024 2:02p m Bipolar II disorder July 31, 2024 2:02p m Chronic atrial fibrillation July 31 2:02pm Chronic fatigue July 31, 2024 2:02p m Chronic obstructive pulmonary disease (C OPD) July 31, 2024 2:02pm Chronic systolic congestive heart failur e July 31, 2024 2:02pm Cigarette nicotine dependence without co mplication July 31, 2024 2:02pm Essential hypertension July 31, 2024 2: 02pm GERD (gastroesophageal reflux disease) M ay 2024 2:02pm Hyperlipidemia July 31, 2024 2:02p m Hypothyroidism July 31, 2024 2:02p m Mild cognitive impairment July 31, 2024 2:02pm Osteoporosis July 31, 2024 2:02p m Pharyngeal dysphagia July 31, 2024 2:02 pm Rheumatoid arthritis July 31, 2024 2:02 pm Status post insertion of monie g-eluting stent into left anterior descending ( July 31, 2024 2:02pm Well adult exam July 31, 2024 2:02p m Chief Complaint Admit Date Amb Documentation July 30, 2024 9:47a m High Risk Medicare AWV Subsequent July 312024 2:02pm September 09, 2024 4:13 pm Screening September 10, 2024 1:13 pm Chief Complaint Admit Date Screening September 10, 2024 1:13 pm October 07, 2024 12:5 5pm concerns with memory November 20, 2024 2:08pm Reason for Visit Admit Date Mild cognitive impairment November 20, 2024 2:08pm Balance disorder November 20, 2024 2:08pm Additional Source Comments INFORMATION SOURCE (unrecogn ized section and content) DATE CREATED AUTHOR 05/29/2019 [facility] DATE CREATED AUTHOR AUTHOR'S ORGANIZ ATION 06/09/2021 [facility] DATE CREATED AUTHOR AUTHOR'S ORGANIZ ATION 08/25/2022 [facility] DATE CREATED AUTHOR AUTHOR'S ORGANIZ ATION 09/16/2023 [facility] DATE CREATED AUTHOR AUTHOR'S ORGANIZ ATION 01/03/2024 [facility] EPIC DATE CREATED AUTHOR AUTHOR'S ORGANIZ ATION 07/10/2024 [facility] DATE CREATED AUTHOR AUTHOR'S ORGANIZ ATION 07/22/2024 [facility] DATE CREATED AUTHOR AUTHOR'S ORGANIZ ATION 09/06/2024 [facility] DATE CREATED AUTHOR AUTHOR'S ORGANIZ ATION 11/12/2024 [facility] DATE CREATED AUTHOR AUTHOR'S ORGANIZ ATION 12/21/2024 [facility] REASON FOR VISIT (unrecogniz ed section and content) Reason Comments Rituxan Specialty Diagnoses / Procedures Referred By Contac t Referred To Contact Diagnoses Rheumatoid arthritis, involving unspecified site, unspecified whether rheumatoid factor present (HCC) Procedures SD INJECTION, RITUXIMAB, 10 MG Servando Umana MD [address] [place] [address] Phone: tel: fax: Servando Umana MD [address] [place] [address] Phone: tel: fax: Referral ID Status Reason Start Date Expiration Date V isits Requested Visits Authorized [id number] Authorized 06/10/2024 06/09/2025 4 4 Specialty Diagnoses / Procedures Referred By Contac [...] PATIENT MED ONC Self Neville Yee MD [facility] [place] [address] Referral ID Status Reason Start Date Expiration Date Visits Re quested Visits Authorized [id number] Closed 07/25/2023 03/18/2024 1 1 Reason Comments Lymphoma Specialty Diagnoses / Procedures Referred By Contac t Referred To Contact Hematology/Oncology / HEMATOLOGY/ONCOLOGY Diagnoses follow up after PET scan to review results Procedures OFFICE/OUTPATIENT NEW HIGH MDM 60 MINUTES EST PATIENT Neville Yee MD [facility] [address] [facility] [place] [address] Neville Yee MD [address] [place] [address] [place] [address] Referral ID Status Reason Start Date Expiration Date Visits Re quested Visits Authorized [id number] Closed 09/14/2023 12/13/2023 1 1 Reason Comments Radiology NM Specialty Diagnoses / Procedures Referred By Contac t Referred To Contact MOLECULAR & FUNCTIONAL IMAGING Diagnoses Diffuse large B-cell lymphoma of solid organ excluding spleen (HCC) Procedures NM PET/CT SKULL-THIGH INITIAL PET IMAGING CT ATTENUATION SKULL BASE MID-THIGH Neville Yee MD [address] [place] [address] [place] [address] Molecular & Functional Imaging [address] [place] [address] Referral ID Status Reason Start Date Expiration Date V isits Requested Visits Authorized [id number] Closed Auto-Generate d Referral 08/23/2023 09/21/2024 1 1 Reason Comments Establish Care 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) Reason Onset Date Comments Med Refill 04/11/2024 Reason Comments Med Refill Reason Onset Date Comments Med Refill 04/27/2023 Reason Comments Follow-up 6 month Hypertension Cardiomyopathy Atrial Fibrillation Shortness of Breath Dizziness Reason Comments Follow-up 1 YEAR Cardiomyopathy Atrial Fibrillation Hypertension Reason Comments rituximab Reason Onset Date Comments Med Refill 09/25/2024 Care Teams (unrecognized sec tion and content) Team Status: Active Member Role Status Dates Ed Lawton DO Primary Care Provider Active Team Status: Inactive Member Role Status Dates Ed Lawton DO Primary Care Provider Active Start: September 10, 2024 End: September 10, 2024 Ed Lawton DO Attending Provider Active Start: September 10, 2024 End: September 10, 2024 Team Status: Active Member Role Status Dates Ed Lawton DO Primary Care Provider Active Start: September 23, 2024 Ed Lawton DO Attending Provider Active Start: September 23, 2024 Team Status: Active Member Role Status Dates PHYSICIAN NO FAMILY Primary Care Provider Active Start: October 07, 2024 Mikey Mccord MD Attending Provider Active Start: October 07, 2024 Team Status: Inactive Member Role Status Dates Ed Lawton , DO Primary Care Provider Active Start: November 20, 2024 End: November 20, 2024 Ed Lawton , DO Attending Provider Active Start: November 20, 2024 End: November 20, 2024 Team Status: Active Member Role Status Dates PHYSICIAN NO FAMILY Primary Care Provider Active Start: July 15, 2024 Mikey Mccord MD Attending Provider Active Start: July 15, 2024 Team Status: Active Member Role Status Dates Ed Lawton , DO Primary Care Provider Active Start: July 30, 2024 Sophie Hooper LPN Attending Provider Active Start: July 30, 2024 Team Status: Inactive Member Role Status Dates Ed Lawton , DO Primary Care Provi radhames, Attending Provider Active Start: July 31, 2024 End: July 31, 2024 Team Status: Inactive Member Role Status Dates [...] Care Provider Active Start: September 25, 2023 MAGO Mccollum Attending Provider Active S tart: September 25, 2023 Team Status: Inactive Member Role Status Dates Ed Lawton , DO Primary Care Provider Active Start: October 17, 2023 End: October 17, 2023 Robson Robins APRN Attending Provider Active Start: October 17, 2023 End: October 17, 2023 Team Status: Inactive Member Role Status Dates Ed Lawton , DO Primary Care Provi radhames, Attending Provider Active Start: November 14, 2023 End: November 14, 2023 Team Status: Active Member Role Status Dates Ed Lawton , DO Primary Care Provi radhames, Attending Provider Active Start: November 22, 2023 Team Status: Active Member Role Status Dates PHYSICIAN NO FAMILY Primary Care Provider Active Start: November 27, 2023 Mikey Mccord MD Attending Provider Active Start: November 27, 2023 Team Status: Inactive Member Role Status Dates Ed Lawton , DO Primary Care Provider Active Start: December 12, 2023 End: December 12, 2023 Robson Robins APRN Attending Provider Active Start: December 12, 2023 End: December 12, 2023 Team Status: Active Member Role Status Dates Ed Lawton , DO Primary Care Provider Active Start: August 23, 2023 Neville Yee MD Attending Provider Active Start: August 23, 2023 Team Status: Inactive Member Role Status Dates Ed Lawton , DO Primary Care Provi radhames, Attending Provider Active Start: September 05, 2023 End: September 05, 2023 Team Status: Active Member Role Status Dates Ed Nikhil CurtisJered , DO Primary Care Provider Active Start: September 25, 2023 Jessica Manzano Attending Provider Active Start: September 25, 2023 Team Status: Active Member Role Status [...] Status: Inactive Member Role Status Dates Ed Nikhil CurtisJered DO Primary Care Provider, Attending Provider Active Team Status: Active Member Role Status Dates PHYSICIAN NO FAMILY Primary Care Provider Active Start: February 13, 2023 Mikey Mccord MD Attending Provider Active Start: February 13, 2023 Team Status: Inactive Member Role Status Dates Ed Tejeda Jered DO Primary Care Provi radhames, Attending Provider Active Start: May 10, 2023 End: May 10, 2023 Veterans Employment Representative Relationship Specialty Start Date End Date Ed Lawton DO PCP - General Family Medicine 05/22/18 Team Status: Active Member Role Status Dates Ed Lawton Attending Provider Active Start: May 16, 2023 Ed Lawton Primary Care Provider Active Start: May 16, 2023 Team Status: Active Member Role Status Dates PHYSICIAN NO FAMILY Primary Care Provider Active Start: June 13, 2023 Mikey Mccord MD Attending Provider Active Start: June 13, 2023 Veterans Employment Representative Relationship Specialty Start Date End Date Ed Lawton DO PCP - General Family Medicine 05/22/18 Team Status: Active Member Role Status Dates PHYSICIAN NO FAMILY Primary Care Provider Active Start: August 28, 2023 Mikey Mccord MD Attending Provider Active Start: August 28, 2023 Veterans Employment Representative Relationship Specialty Start Date End Date Ed Lawton DO PCP - General Family Medicine 05/22/18 Veterans Employment Representative Relationship Specialty Start Date End Date Ed Lawton DO PCP - General Family Medicine 05/22/18 Team Status: Active Member Role Status Dates PHYSICIAN NO FAMILY Primary Care Provider Active Start: September 06, 2023 Mikey Mccord MD Attending Provider Active Start: September 06, 2023 Veterans Employment Representative Relationship Specialty Start Date End Date Ed Lawton DO PCP - General Family Medicine 05/22/18 Veterans Employment Representative Relationship Specialty Start Date End Date Ed Lawton MD [address] [facility] [place] [phone] PCP - General Family Medicine 12/10/23 Team Status: Inactive Member Role Status Dates Ed Lawton DO [facility] Attending Provider Active Start: January 15, 2024 End: January 15, 2024 Veterans Employment Representative Relationship Specialty Start Date End Date Ed Lawton DO [address] [place] [address] PCP - General Family Medicine 01/28/24 Veterans Employment Representative Relationship Specialty Start Date End Date Ed Lawton DO [address] [place] [address] PCP - General Family Medicine 01/28/24 Veterans Employment Representative Relationship Specialty Start Date End Date Ed Lawton MD [address] [facility] [place] [address] PCP - General Family Medicine 12/10/23 Veterans Employment Representative Relationship Specialty Start Date End Date Ed Lawton MD [address] [place] [phone] PCP - General Family Medicine 12/10/23 Veterans Employment Representative Relationship Specialty Start Date End Date Ed Lawton DO PCP - General Family Medicine 10/30/19 Veterans Employment Representative Relationship Specialty Start Date End Date Ed Lawton DO [address] [place] [address] PCP - General Family Medicine 10/30/19 Veterans Employment Representative Relationship Specialty Start Date End Date Ed Lawton DO [address] [place] [phone] PCP - General Family Medicine 10/30/19 Veterans Employment Representative Relationship Specialty Start Date End Date Ed Lawton DO [address] [place] [phone] PCP - General Family Medicine 10/30/19 Veterans Employment Representative Relationship Specialty Start Date End Date Ed Lawton DO [address] [place] [address] PCP - General Family Medicine 10/30/19 Veterans Employment Representative Relationship Specialty Start Date End Date Ed Lawton DO [address] [place] [phone] PCP - General Family Medicine 10/30/19 Veterans Employment Representative Relationship Specialty Start Date End Date Ed Lawton DO PCP - General Family Medicine 10/30/19 Veterans Employment Representative Relationship Specialty Start Date End Date Ed Lawton DO PCP - General Family Medicine 10/30/19 Veterans Employment Representative Relationship Specialty Start Date End Date Ed Lawton DO PCP - General Family Medicine 10/30/19 Veterans Employment Representative Relationship Specialty Start Date End Date Ed Lawton DO PCP - General Family Medicine 10/30/19 Veterans Employment Representative Relationship Specialty Start Date End Date JeredEd [address] [place] [address] PCP - General Family Medicine 01/28/24 Veterans Employment Representative Relationship Specialty Start Date End Date Davide Lawtonpretty [address] [place] [address] PCP - General Family Medicine 01/28/24 Veterans Employment Representative Relationship Specialty Start Date End Date Ed Lawton DO PCP - General Family Medicine 10/30/19 Veterans Employment Representative Relationship Specialty Start Date End Date JeredEdDO [address] [place] [address] PCP - General Family Medicine 01/28/24 Veterans Employment Representative Relationship Specialty Start Date End Date Jered Ed, [address] [place] [address] PCP - General Family Medicine 01/28/24 Veterans Employment Representative Relationship Specialty Start Date End Date Ed Lawton DO [address] [place] [address] PCP - General Family Medicine 01/28/24 Veterans Employment Representative Relationship Specialty Start Date End Date Ed Lawton DO PCP - General Family Medicine 10/30/19 Veterans Employment Representative Relationship Specialty Start Date End Date Ed Lawton DO [address] [place] [address] PCP - General Family Medicine 01/28/24 Team Status: Inactive Member Role Status Dates Ed Tejeda Jered Primary Care Provider Active Start: July 31, 2024 End: July 31, 2024 Ed Lawton DO Attending Provider Active Start: July 31, 2024 End: July 31, 2024 Team Status: Active Member Role Status Dates PHYSICIAN NO FAMILY Primary Care Provider Active Start: September 09, 2024 Mikey Mccord MD Attending Provider Active Start: September 09, 2024 Veterans Employment Representative Relationship Specialty Start Date End Date Ed Lawton DO PCP - General Family Medicine 10/30/19 Veterans Employment Representative Relationship Specialty Start Date End Date Ed Lawton DO [address] [place] [address] PCP - General Family Medicine 01/28/24 Veterans Employment Representative Relationship Specialty Start Date End Date Ed Lawton DO PCP - General Family Medicine 10/30/19 Goals (unrecognized section and content) Goals may be documented in a n alternate section Source Comments (unrecognize d section and content) In the event this informatio n is protected by the Federal Confidentiality of Alcohol and Drug Abuse Patient Records regulations: The Federal rules restrict any use of the information to criminally investigate or prosecute any alcohol or drug abuse patient.[facility] the event this information is protected by the Federal Confidentiality of Alcohol and Drug Abuse Patient Records regulations: The Federal rules restrict any use of the information to criminally investigate or prosecute any alcohol or drug abuse patient.[facility] the event this information is protected by the Federal Confidentiality of Alcohol and Drug Abuse Patient Records regulations: The Federal rules restrict any use of the information to criminally investigate or prosecute any alcohol or drug abuse patient.[facility] the event this information is protected by the Federal Confidentiality of Alcohol and Drug Abuse Patient Records regulations: The Federal rules restrict any use of the information to criminally investigate or prosecute any alcohol or drug abuse patient.[facility] the event this information is protected by the Federal Confidentiality of Alcohol and Drug Abuse Patient Records regulations: The Federal rules restrict any use of the information to criminally investigate or prosecute any alcohol or drug abuse patient.[facility] FOR RECORDS PERTAINING TO PATIENTS WHO ARE [...] BE BASED ON THE PRIMARY CLINICAL RECORDS. [facility]. provides no warranty or guarantee of the accuracy or completeness of information in this document.
[2024-12-26 13:39] LABS: Hematocrit 40.3 % (36.0-48.0); Hemoglobin 13.2 g/dL (12.0-16.0); Immature Granulocytes Abs Auto 0.01 10^3/uL (0.00-0.03); Immature Granulocytes Pct Auto 0.2 % (0.0-0.5); Lymphocytes Absolute Auto 1.5 10^3/uL (1.2-3.8); Mean Corpuscular HGB Conc 32.8 g/dL (29.9-35.2); Mean Corpuscular Hemoglobin 31.4 pg (26.7-34.0); Mean Corpuscular Volume 96.0 fL (81.0-99.0); Platelet Count 302 10^3/uL (150-450); Red Blood Count 4.20 10^6/uL (4.20-5.40); White Blood Count 6.0 10^3/uL (4.0-11.0)
[2024-12-26 15:12] LABS: Alanine Aminotransferase 39 U/L (14-59); Aspartate Amino Transferase 99 U/L (15-37); Estimated GFR (African America >60 (>=60 mL/min/1.73m^2); Estimated GFR (Non-African Ame >60 (>=60 mL/min/1.73m^2)
[2024-12-27 09:09] LABS: Immunoglobulin A, Qn, Serum 411 mg/dL (87-352)
== END 2024-12-26 13:03 | disposition home or self-care (01) ==
LOC: LAB 13:02
DX: M05.79 Rheumatoid arthritis with rheumatoid factor of multiple sites without organ or systems involvement (principal); Z79.899 Other long term (current) drug therapy
CPT/HCPCS: 36415; 82565; 82784; 84450; 84460; 85025; 85652; 86140